=== PATIENT | male | born 1950 | race Caucasian/White ===

== ENCOUNTER 2023-06-13 11:53 | Outpatient (OUT) | payer MEDICARE, OTHER, SELFPAY ==
--- NOTE | 2023-06-13 12:19 | CT_ITS ---
[address] [address] Patient Name: FANTASMA DAWN MRN: [id number] date: 1950 Sex: M Assigned Patient Location: CT Current Patient Location: CT Accession/Order Number: [id number] Exam Date: 06/13/2023 12:35 Report Date: 06/13/2023 16:00 At the request of: SHAIKH DIANE Procedure: CT chest wo con EXAMINATION: CT chest wo con HISTORY: Abnormal chest CT R93.89 COMPARISON: No prior studies or reports for comparison. TECHNIQUE: Multi-planar CT images were obtained without and/or with IV contrast as indicated by examination type. Axial, Coronal, and Sagittal images. Dose reduction techniques were achieved by using automated exposure control and/or adjustment of mA and/or kV according to patient size and/or use of iterative reconstruction technique. FINDINGS: LUNGS: Marked emphysematous changes throughout the lungs. Scattered small areas of stranding favoring scarring or residual parenchyma. Focal 6 cm area within the posterior medial aspect of the right upper lobe basilar segment. PLEURA: No mass, effusion, or pneumothorax. VASCULATURE: No abnormality. JOSE: A few calcified lymph nodes favoring chronic granulomatous disease. MEDIASTINUM: A few calcified lymph nodes. CARDIAC: No enlargement, pericardial thickening, or significant calcification. AORTA: No aneurysm or dissection. CHEST WALL: No mass or axillary adenopathy. BONES: No bone lesion or fracture. LIMITED ABDOMEN: Small round hypodensity medial right hepatic lobe favoring a cyst or hemangioma. Limited images of the upper abdomen. OTHER: Negative. CT/CT chest wo con IMPRESSION: 1. Marked emphysematous changes throughout the lungs. 2. Scattered areas of stranding and greater density suspected to represent scarring and residual parenchyma, most notable within right upper lobe basilar segments. Infectious infiltrates and neoplasm cannot be completely excluded but are felt less likely. Consider follow-up imaging in 2-3 months to document stability. If studies are available at another institution comparison is recommended. Electronically authenticated by: MARSHALL VEGA Date: 06/13/2023 16:00
[2023-06-13 12:20] LABS: Basophils Absolute Auto 0.1 10^3/uL (0.0-0.1); Basophils Percent Auto 0.7 % (0.2-2.0); Eosinophils Absolute Auto 0.1 10^3/uL (0.0-0.7); Eosinophils Percent Auto 1.7 % (0.9-7.0); Hematocrit 52.1 % (42.0-54.0); Hemoglobin 17.7 g/dL (14.0-18.0); Immature Granulocytes Abs Auto 0.04 10^3/uL (0.00-0.03); Immature Granulocytes Pct Auto 0.5 % (0.0-0.5); Lymphocytes Absolute Auto 1.5 10^3/uL (1.2-3.8); Lymphocytes Percent Auto 17.2 % (20.5-60.0); Mean Corpuscular Hemoglobin 32.1 pg (25.9-34.0); Mean Corpuscular Volume 94.6 fL (80.0-94.0); Mean Platelet Volume 8.9 fL (9.5-13.5); Monocytes Absolute Auto 0.7 10^3/uL (0.3-0.8); Monocytes Percent Auto 8.3 % (1.7-12.0); Neutrophils Absolute Auto 6.1 10^3/uL (1.4-6.5); Neutrophils Percent Auto 71.6 % (43.0-75.0); Platelet Count 197 10^3/uL (150-450); Red Blood Count 5.51 10^6/uL (4.70-6.10); Red Cell Distribution Width 13.1 % (11.0-15.0); White Blood Count 8.5 10^3/uL (4.0-11.0)
[2023-06-13 12:45] LABS: Total Protein Urine Random 17.3 mg/dL (<=11.9)
[2023-06-13 13:20] LABS: Alanine Aminotransferase 24 U/L (16-63); Albumin Level 3.6 g/dL (3.4-5.0); Alkaline Phosphatase 93 U/L (46-116); Anion Gap 11.4; Aspartate Amino Transferase 21 U/L (15-37); BUN Creatinine Ratio 15.3; Bilirubin Total 0.9 mg/dL (0.2-1.0); Calcium 9.8 mg/dL (8.5-10.1); Carbon Dioxide 30.5 mmol/L (21.0-32.0); Chloride 105 mmol/L (98-107); Estimated GFR (African America 58 (>=60); Estimated GFR (Non-African Ame 48 (>=60); Globulin 3.5 g/dL; Glucose 90 mg/dL (74-106); Potassium 4.9 mmol/L (3.5-5.1); Sodium 142 mmol/L (136-145); Total Protein 7.1 g/dL (6.4-8.2)
== END 2023-06-13 11:54 | disposition home or self-care (01) ==
PROVIDERS: PCP Internal Medicine; Visit Provider Internal Medicine
DX: R93.89 Abnormal findings on diagnostic imaging of other specified body structures (principal); N18.30 Chronic kidney disease, stage 3 unspecified; J44.9 Chronic obstructive pulmonary disease, unspecified
CPT/HCPCS: 36415; 71250; 80053; 82570; 84156; 85025

== ENCOUNTER 2024-03-19 09:26 | Outpatient (OUT) | payer MEDICARE, OTHER, SELFPAY ==
[2024-03-19 10:01] LABS: Basophils Absolute Auto 0.1 10^3/uL (0.0-0.1); Basophils Percent Auto 0.8 % (0.2-2.0); Eosinophils Absolute Auto 0.2 10^3/uL (0.0-0.7); Eosinophils Percent Auto 3.4 % (0.9-7.0); Hematocrit 48.9 % (42.0-54.0); Hemoglobin 16.2 g/dL (14.0-18.0); Immature Granulocytes Abs Auto 0.02 10^3/uL (0.00-0.03); Immature Granulocytes Pct Auto 0.3 % (0.0-0.5); Lymphocytes Absolute Auto 1.5 10^3/uL (1.2-3.8); Lymphocytes Percent Auto 23.4 % (20.5-60.0); Mean Corpuscular HGB Conc 33.1 g/dL (29.9-35.2); Mean Corpuscular Hemoglobin 31.3 pg (25.9-34.0); Mean Corpuscular Volume 94.6 fL (80.0-94.0); Mean Platelet Volume 9.1 fL (9.5-13.5); Monocytes Absolute Auto 0.5 10^3/uL (0.3-0.8); Monocytes Percent Auto 8.4 % (1.7-12.0); Neutrophils Absolute Auto 4.1 10^3/uL (1.4-6.5); Neutrophils Percent Auto 63.7 % (43.0-75.0); Platelet Count 180 10^3/uL (150-450); Red Blood Count 5.17 10^6/uL (4.70-6.10); Red Cell Distribution Width 12.8 % (11.0-15.0); White Blood Count 6.4 10^3/uL (4.0-11.0)
[2024-03-19 10:13] LABS: Alanine Aminotransferase 21 U/L (16-63); Albumin Globulin Ratio 0.9; Albumin Level 3.3 g/dL (3.4-5.0); Alkaline Phosphatase 96 U/L (46-116); Anion Gap 10.6; Aspartate Amino Transferase 13 U/L (15-37); BUN Creatinine Ratio 20.8; Bilirubin Total 0.7 mg/dL (0.2-1.0); Calcium 10.1 mg/dL (8.5-10.1); Carbon Dioxide 26.8 mmol/L (21.0-32.0); Chloride 106 mmol/L (98-107); Estimated GFR (African America 54 (>=60); Estimated GFR (Non-African Ame 45 (>=60); Globulin 3.5 g/dL; Glucose 99 mg/dL (74-106); Potassium 4.4 mmol/L (3.5-5.1); Sodium 139 mmol/L (136-145); Total Protein 6.8 g/dL (6.4-8.2)
[2024-03-19 11:42] LABS: Protein Creatinine Ratio Urine 0.09; Total Protein Urine Random 11.9 mg/dL (<=11.9)
== END 2024-03-19 09:27 | disposition home or self-care (01) ==
PROVIDERS: PCP Internal Medicine; Visit Provider Internal Medicine
DX: N18.31 Chronic kidney disease, stage 3a (principal)
CPT/HCPCS: 36415; 80053; 82570; 84156; 85025

== ENCOUNTER 2024-06-04 15:59 | Outpatient (OUT) | payer MEDICARE, OTHER, SELFPAY ==
--- OUTSIDE RECORDS SUMMARY | 2024-06-04 16:18 | XMS_ITS | CCD ---
Author Organization [facility] Care Team Providers Care Market Manager Name Role Phone PHYSICIAN, DEFAULT Unavailable Unavailable PHYSICIAN, DEFAULT Unavailable Unavailable Lisa Lester Unavailable YancyRowena Unavailable DIANE, BARKER H Attending Unavailable DR YANDY MALONEY V Consulting Unavailable RICHELLE HUNTLEY Primary Care Unavailable FAWWAD, BARKER H Admitting Unavailable FAWWAD, BARKER H Referring Unavailable DR REINIER DAVISON Consulting Unavailable DIANE, BARKER H Consulting Unavailable YANDY PINEDA Consulting Unavailable RICHELLE HUNTLEY Primary Care Unavailable FAWWAD, BARKER H Attending Unavailable FAWWAD, BARKER H Admitting Unavailable FAWWAD, BARKER H Consulting Unavailable DR REINIER DAVISON Consulting Unavailable FAWWAD, BARKER H Attending Unavailable RICHELLE HUNTLEY Primary Care Unavailable FAWWAD, BARKER H Admitting Unavailable FAWWAD, BARKER H Consulting Unavailable FARosaWAD, BARKER H Attending Unavailable RICHELLE HUNTLEY Primary Care Unavailable FAWWAD, BARKER H Admitting Unavailable RICHELLE HUNTLEY Primary Care Unavailable DR REINIER DAVISON Consulting Unavailable FAWWAD, BARKER H Admitting Unavailable FAWWAD, BARKER H Attending Unavailable FAWWAD, BARKER H Consulting Unavailable CANDACEWWAD, BARKER H Attending Unavailable RICHELLE HUNTLEY Primary Care Unavailable DR YANDY MALONEY V Consulting Unavailable FAWWAD, BARKER H Admitting Unavailable FAWWAD, BARKER H Consulting Unavailable SEBASTIAN KOHLER Attending Unavailable SEBASTIAN KOHLER Attending Unavailable SRUTHI PINEDA Attending Unavailable FAWWAD, BARKER Attending Unavailable FAWWAD, BARKER Attending Unavailable Medications Current Medications Medication Drug Class(es) Dates Sig (Normalized) Sig (Original) [id number] 200 actuat albuterol 0.09 mg/actuat metered dose inhaler (2 sources) beta2-Adrenergic Agonist take 2 puff(s) by inhalation every four hours as needed Ventolin HFA 108 (90 Base) MCG/ACT 2 puff as needed Inhalation every 4 hrs Active cyclobenzaprine hydrochloride 5 mg oral tablet (1 source) Muscle Relaxant Start: 2 take 1 tablet by mouth every eight hours Cyclobenzaprine HCl 5 MG 1 tablet as needed Orally Three times a day May, Active methylPREDNISolone 4 mg oral tablet (1 source) Corticosteroid Start: 2 methylPREDNISolone 4 MG start tomorrow as directed Orally Once a day for 6 days May, Active Trelegy Ellipta (1 source) Trelegy Ellipta Active 7 actuat umeclidinium 0.0625 mg/actuat / vilanterol 0.025 mg/actuat dry powder inhaler (1 source) Anticholinergic, beta2-Adrenergic Agonist take 1 puff(s) by inhalation once daily Anoro Ellipta 62.5-25 MCG/INH 1 puff Inhalation Once a day Active Completed/Discontinued Medications Medication Drug Class(es) Dates Sig (Normalized) Sig (Original) dextromethorphan hydrobromide 15 mg / guaiFENesin 400 mg / pseudoephedrine hydrochloride 60 mg oral tablet (1 source) alpha-Adrenergic Agonist, Uncompetitive W-sqasii-M-aspartate Receptor Antagonist, Sigma-1 Agonist Capmist DM 60-15-400 MG 1 tablet at 4 hour intervals as needed Orally Four times a day Not-Taking Toradol 30 mg/ml (1 source) Start: 06-17-2022 Toradol 30 mg/ml May, 30 mg triamcinolone acetonide 40 mg/ml injectable suspension (1 source) Corticosteroid Start: 06-17-2022 Kenalog-40 May, 40 mg Problems Active Problems Problem Classification Problem Date Documented Date Episodic/Chronic Chronic kidney disease (2 sources) Chronic kidney disease stage 3A ; Translations: [Chronic kidney disease, stage 3a] Chronic Chronic kidney disease (3 sources) Chronic kidney disease; Translations: [Chronic kidney disease, stage III (moderate)] Onset: 03-08-2022 Resolved: 03-08-2022 Chronic obstructive pulmonary disease and bronchiectasis (1 source) Chronic obstructive pulmonary disease, unspecified; Translations: [COPD UNSPECIFIED] Onset: 12-16-2021 Chronic Disorders of lipid metabolism (2 sources) Hyperlipidemia, unspecified; Translations: [Hyperlipidemia, unspecified] Onset: 07-07-2023 Chronic Other lower respiratory disease (4 sources) Other forms of dyspnea; Translations: [OTHER FORMS OF DYSPNEA] Onset: 11-10-2022 Episodic Other screening for suspected conditions (not mental disorders or infectious disease) (4 sources) Abnormal findings on diagnostic imaging of other specified body structures; Translations: [ABNORML FIND DX IMG OTH BODY STRUC] Onset: 02-22-2022 Chronic Spondylosis; intervertebral disc disorders; other back problems (2 sources) Spondylosis without myelopathy or radiculopathy, lumbar region; Translations: [Other intervertebral disc degeneration, lumbar region] Onset: 12-16-2021 Chronic Sprains and strains (1 source) Strain of muscle, fascia and tendon of lower back, initial encounter Episodic Substance-related disorders (1 source) Nicotine dependence, cigarettes, with other nicotine-induced disorders; Translations: [NICOTINE DEPEND CIG W/OTH INDUC D/O] Onset: 12-16-2021 Chronic Unclassified (3 sources) LOW BACK PAIN, UNSPECIFIED; Translations: [LOW BACK PAIN, UNSPECIFIED] Onset: 12-16-2021 Unclassified (2 sources) New Patient; Translations: [New Patient] Onset: 01-25-2023 Past or Other Problems Problem Classification Problem Date Documented Da te Episodic/Chronic Other lower respiratory disease (1 source) Other nonspecific abnormal finding of lung field; Translations: [OTH NONSPECIFIC ABN FIND LNG FIELD] Onset: 12-16-2021 Episodic Other screening for suspected conditions (not mental disorders or infectious disease) (1 source) Encounter for screening for malignant neoplasm of respiratory organs; Translations: [ENC SCREEN MALIG NEOPLASM RESP ORGN] Onset: 12-16-2021 Episodic Spondylosis; intervertebral disc disorders; other back problems (4 sources) Spinal stenosis, lumbar region with neurogenic claudication; Translations: [SPINAL STENOSIS LUMBAR REGION NC] Onset: 06-28-2022 Episodic Unclassified (1 source) LOW BACK PAIN, UNSPECIFIED; Translations: [LOW BACK PAIN, UNSPECIFIED] Onset: 12-10-2021 Results Test Name Value Interpretation Reference Range Facility Office Visiton 07-07-2023 Follow-up visit [id number] Spencer Dawn 1950 M Date Provider Department Center 07/07/2023 SEBASTIAN BOSS [facility] Family History Problem Relation Age of Onset No Known Problems Mother No Known Problems Father Family Status - Relation Status Age at Mother Father Level of Service:30941 [place] OFFICE/OUTPATIENT ESTABLISHED LOW MDM 20-29 MIN Normal [facility] Office Visiton 01-25-2023 Follow-up visit [id number] Spencer Dawn 1950 M Date Provider Department [facility] SADIQ Ro [facility] No family history on file Level of Service:79353 [place] OFFICE/OUTPATIENT NEW MODERATE MDM 45-59 MINUTES Reason for Visit and Comments: New Patient [632] - Est care- Ongoing SOB and results of heart test Normal [facility] CP ECHO W CONTRASTon 023 CP ECHO W CONTRAST Patient: CRISTI DAWN Exam Date: 11/10/2022 : 1950 Gender:M Ordering : SHAIKH Nathanael CONTRERAS . Admission #: [id number] Family : Order #: [id number] CLICK HERE TO VIEW EXAM ECHOCARDIOGRAM REPORT PROCEDURE: CD ECHO W CONTRAST INDICATIONS: GOLDEN COMPARISON: None. DESCRIPTION: CONTRAST ECHOCARDIOGRAM Real-time transthoracic echocardiography with 2D, M-mode, spectral and color flow Doppler when performed. QUALITY: Lumason contrast was administered due to suboptimal imaging for left ventricular opacification to improve delineation of endocardial boarders. LEFT VENTRICLE: Normal chamber size. Moderate concentric left ventricular hypertrophy. LV EF: Global left ventricular systolic function is normal. Calculated left ventricular ejection fraction is 55%. No significant wall motion abnormalities. DIASTOLIC: Normal diastolic function. ATRIAL SEPTUM: Inadequately seen. LEFT ATRIUM: Normal chamber size. RIGHT ATRIUM: Mild dilatation. RIGHT VENTRICLE: Normal chamber size. Normal right ventricular systolic function. TRICUSPID VALVE: Normal mobility and thickness. No stenosis with trivial regurgitation. No evidence of pulmonary hypertension. RVSP 33mmHg MITRAL VALVE: Normal mobility and thickness. No mitral valve prolapse. No evidence of mitral valve stenosis. There is no mitral annular calcification. No mitral regurgitation. AORTIC VALVE: Normal trileaflet appearance. Thickened aortic valve. Normal leaflet mobility. No evidence of aortic valve stenosis. No aortic regurgitation. AORTIC ROOT: Normal diameter and appearance. PULMONIC VALVE: Normal thickness and mobility. No stenosis. No regurgitation. PERICARDIUM: Anterior free space; trivial effusion versus fat pad. IVC: Collapses with inspirations. Normal size. CONCLUSION: Global left ventricular systolic function is normal; visually estimated ejection fraction is 55 to 60%. No wall motion abnormalities. Normal diastolic function. The right atrium is mildly dilated. Right ventricle is normal in size and systolic function. No significant valvular abnormalities. Anterior free space; trivial effusion versus fat pad. Adult Echocardiography Procedure Report Left Ventricle LVEDD (3.7 - 5.6 cm): 4.18 cm LVESD (2.2 - 4.0 cm): 3.13 cm LVIVS thickness (0.6 - 1.2 cm): 1.34 cm LVPW thickness (0.5 - 1.0 cm): 1.30 cm e': 0.10 m/s E - e': 5.56 LVOT Max Gradient: 3.24 mm[Hg] Peak Velocity (LVOT): 0.90 m/s Mean Velocity (LVOT): 0.58 m/s LVOT Diameter 2.33 cm Left Atrium LA Volume Index (2D A2C): 38.89 ml, 38.89 ml Left Atrium Systolic Dimension: 4.40 cm Mitral Valve MV E to A Ratio: 0.65 Mitral Valve A-Wave Peak Velocity: 0.83 m/s Mitral Valve E-Wave Peak Velocity: 0.54 m/s Right Ventricle RV Internal Diastolic Dimension: 3.23 cm Aorta AO Root Diam: 3.36 cm Ascending Ao Diam: 3.03 cm Aortic Valve AoV Area (Peak Vinny): 3.44 cm2, 3.44 cm2 AoV Area (VTI): 3.07 cm2, 3.07 cm2 Peak Velocity(Antegrade Flow): 1.12 m/s Peak Gradient(Antegrade Flow): 4.98 mm[Hg] Mean Velocity(Antegrade Flow): 0.77 m/s Mean Gradient(Antegrade Flow): 2.78 mm[Hg] Velocity Time Integral: 27.23 cm Tricuspid Valve Peak Velocity (Regurgitant Flow): 2.73 m/s, 2.63 m/s Peak Velocity: 0.48 m/s Pulmonic Valve Mean Gradient: 0.85 mm[Hg] Mean Velocity: 0.43 m/s Peak Velocity: 0.66 m/s, 0.85 m/s Peak Gradient: 2.92 mm[Hg], 1.72 mm[Hg] Right Atrium Right Atrium Systolic Pressure: 40.59 ml, 40.59 ml Dictated by: Ale Paz M.D. on 11/11/2022 at 13:37 Approved by: Ale Paz M.D. on 11/11/2022 at 13:41 Normal [facility] STRESS/REST MULTIon 11-10 MN STRESS/REST MULTI Patient: SPENCER DAWN Exam Date: 11/10/2022 : 1950 Gender:M Ordering : SHAIKH Nathanael CONTRERAS . Admission #: [id number] Family : Order #: [id number] CLICK HERE TO VIEW EXAM RADIOLOGY REPORT PROCEDURE: RADIONUCLIDE IMAGING STRESS/REST MULTI COMPARISON: MN STRESS/REST MULTI, 12/07/2017. INDICATIONS: Dyspnea on exertion TECHNIQUE: Exam Description: Stress/Rest one day protocol gated SPECT Rest Imagin.1 mCi Tc-99m Cardiolite IV on 11/10/2022 Stress Imaging 30.2 mCi Tc-99m Cardiolite IV on 11/10/2022 Exercise Protocol: 0.4 mg Lexiscan given IV Heart Rate (bpm): Rest: 75 Max: 104 PMHR: 69 Blood Pressure: Rest: 158/90 Max: 170/102 Symptoms: shortness of breath Rest and peak stress ECG findings were normal and the exercise portion of the study was normal per attending physician Dr. Mckee . For more details please see separate cardiac stress test report. FINDINGS: QUALITY OF STUDY: PERFUSION DEFECT: LOCATION: Basal inferior. Mid-inferior. SIZE: Small (1-2 segments). SEVERITY: Mild. TYPE: Persistent. WALL MOTION: Normal. LV SIZE: Normal. 67 mL. TID / TCD: None; 0.8 LVEF: Normal. Calculated EF 76%. SUMMARY: Myocardial perfusion imaging study has ABNORMAL findings. CONCLUSION: 1. No acute or reversible ischemia. 2. Small fixed perfusion defect involving the proximal and mid inferior wall versus attenuation artifact. 3. Normal wall motion and ejection fraction. Dictated by: Reinier Davison M.D. on 11/10/2022 at 15:16 Approved by: Reinier Davison M.D. on 11/10/2022 at 15:21 Normal [facility] BNPon 11-02-2022 Natriuretic peptide B (Bld) [Mass/Vol] 122.0 pg/mL Normal <=900.0 [facility] Comment on above: Performed By: #### C MP #### [facility] [address] [place] [address] Dr. Radha Gomez CBC AUTO DIFFon 11-02-2022 BASO # 0.1 103/ul Normal 0.0-0.1 [facility] Comment on above: Performed By: #### C MP #### [facility] [address] [place] [address] Dr. Radha Gomez Basophils/100 WBC (Bld) 0.8 % Normal 0.2-2.0 [facility] Comment on above: Performed By: #### C MP #### [facility] [address] [place] [address] Dr. Radha Gomez EO # 0.1 103/ul Normal 0.0-0.7 [facility] Comment on above: Performed By: #### C MP #### [facility] [address] [place] [address] Dr. Rdaha Gomez Eosinophils/100 WBC (Bld) 1.9 % Normal 0.9-7.0 [facility] Comment on above: Performed By: #### C MP #### [facility] [address] [place] [address] Dr. Radha Gomez Erythrocyte distribution width (RBC) [Ratio] 12.7 % Normal 11.0-15.0 [facility] Comment on above: Performed By: #### C MP #### [facility] [address] [place] [address] Dr. Radha Gomez Hematocrit (Bld) [Volume fraction] 49.8 % Normal 42.0-54.0 [facility] Comment on above: Performed By: #### C MP #### [facility] [address] [place] [address] Dr. Radha Gomez Hemoglobin (Bld) [Mass/Vol] 16.9 g/dL Normal 14.0-18.0 [facility] Comment on above: Performed By: #### C MP #### [facility] [address] [place] [address] Dr. Radha Gomez IG # 0.02 10e3/ul Normal 0.00-0.03 [facility] Comment on above: Performed By: #### C MP #### [facility] [address] [place] [address] Dr. Radha Gomez IG % 0.3 % Normal 0.0-0.5 [facility] Comment on above: Performed By: #### C MP #### [facility] [address] [place] [address] Dr. Radha Gomez LYMPH # 1.4 103/ul Normal 1.2-3.8 [facility] Comment on above: Performed By: #### C MP #### [facility] [address] [place] [address] Dr. Radha Gomez Lymphocytes/100 WBC (Bld) 19.3 % Critically low 20.5-60.0 [facility] Comment on above: Performed By: #### C MP #### [facility] [address] [place] [address] Dr. Radha Gomez MANUAL DIFF REQ NO Normal [facility] Comment on above: Performed By: #### C MP #### [facility] [address] [place] [address] Dr. Radha Gomez MCH (RBC) [Entitic mass] 31.9 pg Normal 25.9-34.0 [facility] Comment on above: Performed By: #### C MP #### [facility] [address] [place] [address] Dr. Radha Gomez MCHC (RBC) [Mass/Vol] 33.9 g/dL Normal 29.9-35.2 [facility] Comment on above: Performed By: #### C MP #### [facility] [address] [address] [address] Radha Gomez MCV (RBC) [Entitic vol] 94.0 fL Normal 80.0-94.0 [facility] Comment on above: Performed By: #### C MP #### [facility] [address] [address] [address] Radha Gomez MONO # 0.7 103/ul Normal 0.3-0.8 [facility] Comment on above: Performed By: #### C MP #### [facility] [address] [address] [address] Radha Gomez Monocytes/100 WBC (Bld) 9.5 % Normal 1.7-12.0 [facility] Comment on above: Performed By: #### C MP #### [facility] [address] [address] [address] Radha Gomez NEUT # 5.0 103/ul Normal 1.4-6.5 [facility] Comment on above: Performed By: #### C MP #### [facility] [address] [place] [address] Dr. Radha Gomez Neutrophils/100 WBC (Bld) 68.2 % Normal 43.0-75.0 [facility] Comment on above: Performed By: #### C MP #### [facility] [address] [address] [address] Radha Gomez Platelet mean volume (Bld) [Entitic vol] 9.0 fL Critically low 9.5-13.5 [facility] Comment on above: Performed By: #### C MP #### [facility] [address] [place] [address] Dr. Radha Gomez PLT 183 103/ul Normal 150-450 [facility] Comment on above: Performed By: #### C MP #### [facility] [address] [address] [address] Radha Gomez RBC 5.30 106/ul Normal 4.70-6.10 [facility] Comment on above: Performed By: #### C MP #### [facility] [address] [address] [address] Radha Gomez WBC 7.3 103/ul Normal 4.0-11.0 [facility] Comment on above: Performed By: #### C MP #### [facility] [address] [address] [address] Radha Gomez PROF CHEM 8 (BAS METB)on Anion gap [Moles/Vol] 11.7 mmol/L Normal [facility] Comment on above: Performed By: #### C MP #### [facility] [address] [address] [address] Radha Gomez Calcium [Mass/Vol] 9.5 mg/dL Normal 8.5-10.1 [facility] Comment on above: Performed By: #### C MP #### [facility] [address] [place] [address] Dr. Radha Gomez Chloride [Moles/Vol] 105 mmol/L Normal 98-107 [facility] Comment on above: Performed By: #### C MP #### [facility] [address] [address] [address] Radha Gomez CO2 [Moles/Vol] 27.5 mmol/L Normal 21.0-32.0 [facility] Comment on above: Performed By: #### C MP #### [facility] [address] [address] [address] Radha Gomez Creatinine [Mass/Vol] 1.35 mg/dL Critically high 0.70-1.30 [facility] Comment on above: Performed By: #### C MP #### [facility] [address] [address] [address] Radha Gomez EGFR-AF WALLISIAN >60 Normal >=60 [facility] Comment on above: Performed By: #### C MP #### [facility] [address] [place] [address] Dr. Radha Gomez EGFR-NON AF WALLISIAN 52 mL/min/1.73m2 Critically low >=60 [facility] Comment on above: Performed By: #### C MP #### [facility] [address] [address] [address] Radha Gomez Glucose [Mass/Vol] 88 mg/dL Normal 74-106 [facility] Comment on above: Performed By: #### C MP #### [facility] [address] [address] [address] Radha Gomez Potassium [Moles/Vol] 4.2 mmol/L Normal 3.5-5.1 [facility] Comment on above: Performed By: #### C MP #### [facility] [address] [address] [address] Radha Gomez Sodium [Moles/Vol] 140 mmol/L Normal 136-145 [facility] Comment on above: Performed By: #### C MP #### [facility] [address] [address] [address] Radha Gomez Urea nitrogen [Mass/Vol] 19.0 mg/dL Critically high 7.0-18.0 [facility] Comment on above: Performed By: #### C MP #### [facility] [address] [address] [address] Radha Gomez Urea nitrogen/Creatinin e [Mass ratio] 14.1 mg/mg Normal [facility] Comment on above: Performed By: #### C MP #### [facility] [address] [address] [address] Radha Gomez XR CHEST 2 Von 11-02-2022 XR CHEST 2 V EXAM: XR CHEST 2 V HISTORY: . Dyspnea . COMPARISON: 05/24/2019 TECHNIQUE: Frontal and lateral chest FINDINGS: Heart and vascularity are unremarkable. There is hyperexpansion of the lungs and flattening of the hemidiaphragms indicating COPD. There is slight prominence of the bronchovascular markings. Lungs are free of focal infiltrates. No effusions are noted. Spondylosis of the spine is noted. IMPRESSION: 1. Changes consistent with COPD. 2. Prominence of the bronchovascular markings. Findings could be chronic. Bronchitis however must also be considered. 3. No areas of consolidation noted. Clinical correlation is suggested. Electronically authenticated by: YANDY PINEDA Date: 2022-11-02 08:42 Normal [facility] XR LSPINE 2_3 VIEWSon 2021 XR LSPINE 2_3 VIEWS EXAMINATION: XR LSPINE 2_3 VIEWS HISTORY: Spinal stenosis of lumbar region COMPARISON: 06/09/2022 FINDINGS: BONES: Normal alignment with no acute fracture or spondylolisthesis. Moderate degenerative spondylosis and facet osteoarthropathy DISC SPACES: Mild to moderate disc space narrowing most significant at T12-L2 PARASPINOUS: Negative. No paraspinous abnormality is seen. OTHER: Vascular calcifications IMPRESSION: Mild to moderate degenerative changes, stable Electronically authenticated by: YANDY MALONEY Date: 2022-06-21 15:47 Normal [facility] CT CHEST WO CONon 02-22-2022 CT CHEST WO CON EXAMINATION: CT CHES T WO CON HISTORY: Imaging result abnormal COMPARISON: No relevant comparison available. TECHNIQUE: Multi-planar CT images were created with IV contrast. Axial, Coronal, and Sagittal images. Dose reduction techniques were achieved by using automated exposure control and/or adjustment of mA and/or kV according to patient size and/or use of iterative reconstruction technique. FINDINGS: LUNGS: Mild peribronchial thickening. Moderate to severe diffuse bilateral centrilobular emphysema. Area of bronchiectasis and patchy parenchymal opacities noted in the right lower lobe ill-defined measuring up to 4.2 x 3.3 cm on axial image 68 this appears stable from the exam 2 months ago additional scattered subcentimeter calcified and noncalcified pulmonary nodules are noted throughout both lungs, grossly unchanged. PLEURA: No mass, effusion, or pneumothorax. VASCULATURE: No abnormality. JOSE: No mass or adenopathy. MEDIASTINUM: Increased number of normal-sized lymph nodes. No pathologic lymphadenopathy CARDIAC: No enlargement, pericardial thickening, or significant calcification. AORTA: No aortic aneurysm. Mild atherosclerosis CHEST WALL: No mass or axillary adenopathy. BONES: No bone lesion or fracture. LIMITED ABDOMEN: Scattered hypodensities in the liver, the larger lesions are likely cysts. The smaller lesions are too small to characterize OTHER: Negative. IMPRESSION: Area of ill-defined infiltrate with associated bronchiectasis in the right lower lobe. While this is unchanged from the exam 2 months ago etiology remains unknown. Additional stable subcentimeter pulmonary nodules and moderate to severe centrilobular emphysema Six-month follow-up recommended to document stability Electronically authenticated by: YANDY MALONEY Date: 2022-02-22 13:27 Normal [facility] CBC AUTO DIFFon 12-10-2021 BASO # 0.1 103/ul Normal 0.0-0.1 [facility] Comment on above: Performed By: #### C BC #### [facility] [address] [place] [address] Dr. Radha Gomez Basophils/100 WBC (Bld) 0.6 % Normal 0.2-2.0 [facility] Comment on above: Performed By: #### C BC #### [facility] [address] [place] [address] Dr. Radha Gomez EO # 0.3 103/ul Normal 0.0-0.7 [facility] Comment on above: Performed By: #### C BC #### [facility] [address] [place] [address] Dr. Radha Gomez Eosinophils/100 WBC (Bld) 3.1 % Normal 0.9-7.0 [facility] Comment on above: Performed By: #### C BC #### [facility] [address] [place] [address] Dr. Radha Gomez Erythrocyte distribution width (RBC) [Ratio] 12.8 % Normal 11.0-15.0 [facility] Comment on above: Performed By: #### C BC #### [facility] Laboratory [address] [place] [address] Dr. Radha Gomez Hematocrit (Bld) [Volume fraction] 50.9 % Normal 42.0-54.0 [facility] Comment on above: Performed By: #### C BC #### [facility] [address] [place] [address] Dr. Radha Gomez Hemoglobin (Bld) [Mass/Vol] 17.3 g/dL Normal 14.0-18.0 [facility] Comment on above: Performed By: #### C BC #### [facility] [address] [place] [address] Dr. Radha Gomez IG # 0.02 10e3/ul Normal 0.00-0.03 [facility] Comment on above: Performed By: #### C BC #### [facility] [address] [place] [address] Dr. Radha Gomez IG % 0.3 % Normal 0.0-0.5 [facility] Comment on above: Performed By: #### C BC #### [facility] [address] [place] [address] Dr. Radha Gomez LYMPH # 1.4 103/ul Normal 1.2-3.8 [facility] Comment on above: Performed By: #### C BC #### [facility] [address] [place] [address] Dr. Radha Gomez Lymphocytes/100 WBC (Bld) 18.0 % Critically low 20.5-60.0 [facility] Comment on above: Performed By: #### C BC #### [facility] [address] [place] [address] Dr. Radha Gomez MANUAL DIFF REQ NO Normal [facility] Comment on above: Performed By: #### C BC #### [facility] [address] [place] [address] Dr. Radha Gomez MCH (RBC) [Entitic mass] 31.3 pg Normal 25.9-34.0 [facility] Comment on above: Performed By: #### C BC #### [facility] [address] [place] [address] Dr. Radha Gomez MCHC (RBC) [Mass/Vol] 34.0 g/dL Normal 29.9-35.2 [facility] Comment on above: Performed By: #### C BC #### [facility] [address] [place] [address] Dr. Radha Gomez MCV (RBC) [Entitic vol] 92.0 fL Normal 80.0-94.0 [facility] Comment on above: Performed By: #### C BC #### [facility] [address] [place] [address] Dr. Radha Gomez MONO # 0.7 103/ul Normal 0.3-0.8 [facility] Comment on above: Performed By: #### C BC #### [facility] [address] [place] [address] Dr. Radha Gomez Monocytes/100 WBC (Bld) 8.3 % Normal 1.7-12.0 [facility] Comment on above: Performed By: #### C BC #### [facility] [address] [place] [address] Dr. Radha Gomez NEUT # 5.5 103/ul Normal 1.4-6.5 [facility] Comment on above: Performed By: #### C BC #### [facility] [address] [place] [address] Dr. Radha Gomez Neutrophils/100 WBC (Bld) 69.7 % Normal 43.0-75.0 [facility] Comment on above: Performed By: #### C BC #### [facility] [address] [place] [address] Dr. Radha Gomez Platelet mean volume (Bld) [Entitic vol] 9.3 fL Critically low 9.5-13.5 [facility] Comment on above: Performed By: #### C BC #### [facility] [address] [place] [address] Dr. Radha Gomez PLT 168 103/ul Normal 150-450 [facility] Comment on above: Performed By: #### C BC #### [facility] [address] [place] [address] Dr. Radha Gomez RBC 5.53 106/ul Normal 4.70-6.10 [facility] Comment on above: Performed By: #### C BC #### [facility] [address] [place] [address] Dr. Radha Gomez WBC 7.9 103/ul Normal 4.0-11.0 [facility] Comment on above: Performed By: #### C BC #### [facility] [address] [place] [address] LUNG CANCER SCREENINGon 0 12-10-2021 CT LUNG CANCER SCREENING EXAMINATION: CT LUNG CANCER SCREENING HISTORY: Screening for malignant neoplasm of respiratory tract COMPARISON: No relevant comparison available. TECHNIQUE: Axial, Coronal, and Sagittal images were created without the administration of IV contrast material. Dose reduction techniques were achieved by using automated exposure control and/or adjustment of mA and/or kV according to patient size and/or use of iterative reconstruction technique. FINDINGS: LUNGS: 4 cm patchy/strandy opacity within the posterior medial right lung adjacent the spine at the level of the hilum; atelectasis versus infiltrates. Moderate emphysematous changes throughout the lungs. A few tiny scattered calcified granulomas. PLEURA: No mass, effusion, or pneumothorax. VASCULATURE: No abnormality. JOSE: No mass or pathologic adenopathy. MEDIASTINUM: A few calcified granulomas. CARDIAC: No enlargement, pericardial thickening, or significant calcification. AORTA: No aneurysm or dissection. CHEST WALL: No mass or axillary adenopathy BONES: No bone lesion or fracture. LIMITED ABDOMEN: No suspicious findings. Limited images of the upper abdomen. OTHER: Negative. IMPRESSION: 1. LUNG SCREENING: Lung-RADS Category 4A- Suspicious. Findings for which additional diagnostic testing and/ or tissue sampling is recommended. 3 month LDCT; PET/CT may be used when there is a >= 8 mm solid component. 2. Patchy/strandy 4 cm opacity within the posterior medial right lung adjacent the spine most suggestive of infectious infiltrate, but neoplasm cannot be excluded. Correlate with clinical symptoms. Consider follow-up CT imaging in 3 months to document resolution versus stability. Electronically authenticated by: REINIER DAVISON Date: 2021-12-10 11:08 Normal [facility] PROF 14(COMP METB)on 022 Albumin [Mass/Vol] 3.7 g/dL Normal 3.5-5.0 [facility] Comment on above: Performed By: #### C MP #### [facility] [address] [place] [address] Dr. Radha Gomez Albumin/Globulin [Mass ratio] 1.1 {ratio} Normal [facility] Comment on above: Performed By: #### C MP #### [facility] [address] [address] [address] Radha Gomez ALP [Catalytic activity/Vol] 92 U/L Normal 38-126 [facility] Comment on above: Performed By: #### C MP #### [facility] [address] [address] [address] Radha Gomez ALT [Catalytic activity/Vol] 26 U/L Normal 21-72 [facility] Comment on above: Performed By: #### C MP #### [facility] [address] [address] [address] Radha Gomez Anion gap [Moles/Vol] 13.0 mmol/L Normal [facility] Comment on above: Performed By: #### C MP #### [facility] [address] [address] [address] Radha Gomez AST [Catalytic activity/Vol] 20 U/L Normal 17-59 [facility] Comment on above: Performed By: #### C MP #### [facility] [address] [address] [address] Radha Gomez Bilirubin [Mass/Vol] 1.1 mg/dL Normal 0.2-1.3 [facility] Comment on above: Performed By: #### C MP #### [facility] [address] [address] [address] Radha Gomez Calcium [Mass/Vol] 9.3 mg/dL Normal 8.4-10.2 [facility] Comment on above: Performed By: #### C MP #### [facility] [address] [address] [address] Radha Gomez Chloride [Moles/Vol] 106 mmol/L Normal 98-107 [facility] Comment on above: Performed By: #### C MP #### [facility] [address] [address] [address] Radha Gomez CO2 [Moles/Vol] 23.4 mmol/L Normal 22.0-30.0 [facility] Comment on above: Performed By: #### C MP #### [facility] [address] [address] [address] Radha Gomez Creatinine [Mass/Vol] 1.39 mg/dL Critically high 0.66-1.25 [facility] Comment on above: Performed By: #### C MP #### [facility] [address] [address] [address] Radha Gomez EGFR-AF WALLISIAN >60 Normal >=60 [facility] Comment on above: Performed By: #### C MP #### [facility] [address] [address] [address] Radha Gomez EGFR-NON AF WALLISIAN 51 mL/min/1.73m2 Critically low >=60 [facility] Comment on above: Performed By: #### C MP #### [facility] [address] [address] [address] Radha Gomez Globulin (S) [Mass/Vol] 3.4 g/dL Normal [facility] Comment on above: Performed By: #### C MP #### [facility] [address] [address] [address] Radha Gomez Glucose [Mass/Vol] 94 mg/dL Normal 74-106 [facility] Comment on above: Performed By: #### C MP #### [facility] [address] [address] [address] Radha Gomez Potassium [Moles/Vol] 4.4 mmol/L Normal 3.4-5.0 [facility] Comment on above: Performed By: #### C MP #### [facility] [address] [address] [address] Radha Gomez Protein [Mass/Vol] 7.1 g/dL Normal 6.1-8.2 [facility] Comment on above: Performed By: #### C MP #### [facility] [address] [address] [address] Radha Gomez Sodium [Moles/Vol] 138 mmol/L Normal 137-145 [facility] Comment on above: Performed By: #### C MP #### [facility] [address] [address] [address] Radha Gomez Urea nitrogen [Mass/Vol] 23.0 mg/dL Critically high 9.0-20.0 [facility] Comment on above: Performed By: #### C MP #### [facility] [address] [address] [address] Radha Gomez Urea nitrogen/Creatinin e [Mass ratio] 16.5 mg/mg Normal [facility] Comment on above: Performed By: #### C MP #### [facility] [address] [address] [address] Radha Gomez XR LSPINE 2_3 VIEWSon 2021 XR LSPINE 2_3 VIEWS EXAMINATION: XR LSPINE 2_3 VIEWS HISTORY: Low back pain ; acute left lumbar pain without injury COMPARISON: No relevant comparison available. FINDINGS: BONES: Minimal grade 1 retrolisthesis of L2 on 3 and L3 on 4. No fracture. Mild degenerative facet arthropathy at multiple levels. DISC SPACES: Moderate narrowing L1-2, L5-S1. Mild narrowing L2-L3, L3-4. PARASPINOUS: Negative. No paraspinous abnormality is seen. OTHER: Negative. IMPRESSION: 1. Multilevel mild-moderate degenerative disc disease and mild degenerative facet arthropathy. 2. No appreciable acute abnormality. No comparison studies. Electronically authenticated by: REINIER DAVISON Date: 2021-12-10 11:13 Normal [facility] Vital Signs Date Time Vital Sign Value Performing Clinician Facility 06-17-2022 10:30-0400 Body height 185.42 cm Rowena Yancy Other [facility] 06-17-2022 10:30-0400 Body mass index (BMI) [Ratio] 28.36 kg/m2 Rowena Yancy Other [facility] 06-17-2022 10:30-0400 Body temperature 97.7 [degF] Rowena Haines Other [facility] Other 06-17-2022 10:30-0400 Body weight 97.52 kg Rowena Haines Other [facility] Other 06-17-2022 10:30-0400 Diastolic blood pressure 93 mm[Hg] Rowena Haines Other [facility] Other 06-17-2022 10:30-0400 Respiratory rate 18 /min Rowena Haines Other [facility] Other 06-17-2022 10:30-0400 SaO2% (BldA) [Mass fraction] 95 % Rowena Haines Other [facility] Other 06-17-2022 10:30-0400 Systolic blood pressure 135 mm[Hg] Rowena Haines Other [facility] Other 03-08-2022 11:20-0400 Body height 185.42 cm Azrafi Carrillos Other [facility] Other 03-08-2022 11:20-0400 Body mass index (BMI) [Ratio] 28.6 kg/m2 Azrafi Carrillos Other [facility] Other 03-08-2022 11:20-0400 Body temperature 97.9 [degF] Azrafi Carrillos Other [facility] Other 03-08-2022 11:20-0400 Body weight 98.34 kg Aziz Bakhous Other [facility] Other 03-08-2022 11:20-0400 Diastolic blood pressure 90 mm[Hg] Aziz Bakhous Other [facility] Other 03-08-2022 11:20-0400 Respiratory rate 20 /min Azrafi Bakhous Other [facility] Other 03-08-2022 11:20-0400 SaO2% (BldA) [Mass fraction] 90 % Aziz Bakhous Other [facility] Other 03-08-2022 11:20-0400 Systolic blood pressure 130 mm[Hg] Aziz Bakhous Other [facility] Other Encounters Encounter Date Encounter Type Care Provider Facility Start: 04-01-2024 End: 04-01-2024 ambulatory SHAIKH DIANE Not Available Start: 03-28-2024 End: 03-28-2024 ambulatory SRUTHI PINEDA Not Available Start: 10-10-2023 End: 10-10-2023 ambulatory BARKER FAYISSELD Not Available Start: 07-07-2023 End: 07-07-2023 ambulatory SEBASTIAN [facility] Start: 01-25-2023 End: 01-25-2023 [facility] Start: 11-10-2022 End: 11-11-[address] REINIER DAVISON Facility:[facility] Start: 11-02-2022 End: 11-03-2022 ambulatory YANDY PINEDA Facility:[facility] Start: 06-28-2022 End: 07-22-2022 ambulatory BARKER H FAYISSELD Facility:[facility] Start: 06-21-2022 End: 06-22-2022 ambulatory BARKER H FAWWAD Facility:[facility] Start: 06-17-2022 End: 06-17-2022 ambulatory Rowena Haines Other [facility] Start: 06-17-2022 Office outpatient visit 15 minutes Rowena Haines [facility] Start: 03-08-2022 End: 03-08-2022 ambulatory Lisa Lester Other [facility] Start: 03-08-2022 Office outpatient ne w 30 minutes Lisa Lester [facility] Start: 02-22-2022 End: 02-23-2022 ambulatory BARKER H FAWWAD Facility:[facility] Start: 12-10-2021 End: 12-11-2021 ambulatory RICHELLE HUNTLEY Facility:[facility] Start: 02-27-2018 End: 02-28-2018 Ambulatory DEFAULT PHYSICIAN Facility:[facility] Payers Date Payer Category Payer Medicare [id number] 2. [id number] 1958 Medicare [id number] 2.1 [id number] 1950 Unknown [id number] 2.16.84 [id number] 1950 Unknown [id number] 2.16.84 [id number] 1950 Unknown [id number] 2.16.84 [id number] 1950 Unknown [id number] 2.16.84 [id number] 1950 Unknown [id number] 2.16.84 [id number] 1950 Unknown [id number] 2.16.84 [id number] 1950 Unknown [id number] 2.16.84 [id number] 1950 Unknown [id number] 2.16.84 [id number] 1950 Unknown [id number] Unknown Social History Date Type Detail Facility Unknown if ever smoked [facility] Other Sex Assigned At Sex Assigned At Bir th [facility] Other Progress note 07-07-2023 Note Date & Type Note Facility 07-07-2023 Note Cardiology Clinic No te Chief Complaint: follow up HPI: Spencer Dawn is a 73 y.o. male with a past medical history including HTN, HLD, tobacco abuse, and COPD. Patient was referred to Cardiology clinic for abnormal stress test. Stress test was performed due to dyspnea on exertion, and a fixed inferior defect concerning for possible scar vs artifact was noted. No reversible ischemia was seen. Of note: patient had similar finding on stress in 2018. Patient presents today for follow up. Patient adamantly denies any cardiac complaints or concerns. Patient denies any chest pain or shortness of breath. Patient denies any lower extremity edema, orthopnea, or proximal nocturnal dyspnea. No near-syncope or syncope. No dizziness or lightheadedness. Cardiology ROS: GENERAL: Denies fever, chills, night sweats, weight loss. HEENT: Denies changes in vision, photophobia, changes in hearing, epistaxis, oral bleeding. CARDIOVASCULAR: Endorses chronic GOLDEN. Denies chest pain, orthopnea/PND, lower extremity edema, palpitations, lightheadedness/dizziness. RESPIRATORY: Denies SOB, coughing, wheezing GI: Denies abdominal pain, nausea/vomiting, heartburn, melena/hematochezia. RENAL: Denies dysuria, hematuria, flank pain. MSK: Denies muscle weakness/pain, arthralgias/joint pain. NEUROLOGIC: Denies LOC, weakness, numbness, headaches. SKIN: Denies abnormal rashes or bleeding. PSYCH: Denies significant anxiety, depression, sleep disturbances. Past Medical History He has a past medical history of COPD (chronic obstructive pulmonary disease) ([facility]), Emphysema of lung ([facility]), and Hypertension. Surgical History He has a past surgical history that includes Tonsillectomy. Social History He reports that he quit smoking about 9 years ago. His smoking use included cigarettes. He has a 50.00 pack-year smoking history. He has never used smokeless tobacco. He reports that he does not currently use alcohol. He reports that he does not use drugs. Family History Family History Problem Relation Name Age of Onset No Known Problems Mother No Known Problems Father Medications Current Outpatient Medications on File Prior to Visit Medication Sig Dispense Refill albuterol 90 mcg/actuation inhaler INHALE 2 TABLETS BY MOUTH EVERY 4 HOURS NEEDED FOR SHORTNESS OF BREATH Trelegy Ellipta 200-62.5-25 mcg blister with device INHALE 1 PUFF BY MOUTH EVERYDAY [DISCONTINUED] Anoro Ellipta 62.5-25 mcg/actuation blister with device INHALE 1 PUFF BY MOUTH ONCE A DAY [DISCONTINUED] cyclobenzaprine (Flexeril) 5 mg tablet Take 5 mg by mouth if needed in the morning, at noon, and at bedtime. [DISCONTINUED] oxyCODONE (Roxicodone) 5 mg immediate release tablet TAKE 1 TABLET BY MOUTH 3 TIMES A DAY NEEDED FOR PAIN No current facility-administered medications on file prior to visit. Allergies Patient has no known allergies. Physical Exam VITAL SIGNS: BP 134/88 (BP Location: Left arm, Patient Position: Sitting) Pulse 90 Ht 1.829 m (6') Wt 94.3 kg (208 lb) SpO2 92% BMI 28.21 kg/m??? Constitutional: Well developed, Well nourished, No acute distress, Non-toxic appearance. HENT: Normocephalic, Atraumatic, Bilateral external ears have normal appearance, Bilateral TMs clear, Oropharynx moist, No oral or pharyngeal exudates, Nose appears normal, nares are patent. Eyes: PERRLA, EOMI, Conjunctiva normal, No discharge. Neck: Normal range of motion, No tenderness, Supple, No stridor. No cervical lymphadenopathy noted. Cardiovascular: Normal heart rate, Normal rhythm, No murmurs, No rubs, No gallops. Thorax & Lungs: Normal breath sounds, No respiratory distress, No wheezing, No chest tenderness to palpation. Abdomen: Bowel sounds normal, Soft, Nontender, No masses, No pulsatile masses. Skin: Warm, Dry, No erythema, No rash. Back: No tenderness, No CVA tenderness. Extremities: Intact distal pulses, No edema, No tenderness, No cyanosis, No clubbing. Musculoskeletal: Good range of motion in all major joints with 5/5 muscle strength in all muscle groups, No tenderness to palpation or major deformities noted. Neurologic: Alert & oriented x 3, Normal motor function in all major muscle groups, Normal sensory function to all major dermatomes, No focal deficits noted. Psychiatric: Affect normal, Judgment normal, Mood normal. Impression: -Abnormal stress test: fixed inferior defect, scar vs artifact. Present on previous stress. No angina. -Dyspnea on exertion, likely in large due to severe COPD -Severe COPD -HTN Plan: -Patient wishes to proceed with observation at this time. -He declines any medications at this time. I recommend initiating amlodipine for hypertension, however patient declines at this time. He will maintain daily blood pressure log and will contact cardiology if blood pressures above discuss target -He declines statin therapy at this time as well. We will check lipid panel (more content not included)... [facility] Progress note 07-07-2023 Note Date & Type Note Facility 07-07-2023 Note Patient here for 6 m o follow up abnormal stress test, dyspnea, and hypertension. Still denies chest pain. PCP manages his COPD/emphysema. He had CT chest and lab work a few weeks ago. [facility] Progress note 01-25-2023 Note Date & Type Note Facility 01-25-2023 Note Cardiology Clinic No te Chief Complaint: new patient regarding abnormal stress test HPI: Spencer Dawn is a 73 y.o. male with a past medical history including HTN, HLD, tobacco abuse, and COPD. Patient was referred to Cardiology clinic for abnormal stress test. Stress test was performed due to dyspnea on exertion, and a fixed inferior defect concerning for possible scar vs artifact was noted. No reversible ischemia was seen. Patient adamantly denies any chest pain. He states that he is fairly active and he adamantly denies any chest pain/tightness/pressure. He states that his dyspnea on exertion has been an ongoing thing for many years, and states that it has improved with inhalers. No worsening in symptoms. Patient adamantly denies any syncope, LE edema, orthopnea, PND, palps, or bleeding. Patient denies any previous history of CVA, PVD, DM, Depressed LVEF, and CAD. Echo was performed and was unremarkable. Normal EF. No regional wall motion abnormality. Cardiology ROS: GENERAL: Denies fever, chills, night sweats, weight loss. HEENT: Denies changes in vision, photophobia, changes in hearing, epistaxis, oral bleeding. CARDIOVASCULAR: Endorses chronic GOLDEN. Denies chest pain, orthopnea/PND, lower extremity edema, palpitations, lightheadedness/dizziness. RESPIRATORY: Denies SOB, coughing, wheezing GI: Denies abdominal pain, nausea/vomiting, heartburn, melena/hematochezia. RENAL: Denies dysuria, hematuria, flank pain. MSK: Denies muscle weakness/pain, arthralgias/joint pain. NEUROLOGIC: Denies LOC, weakness, numbness, headaches. SKIN: Denies abnormal rashes or bleeding. PSYCH: Denies significant anxiety, depression, sleep disturbances. Past Medical History He has no past medical history on file. Surgical History He has no past surgical history on file. Social History He reports that he quit smoking about 9 years ago. His smoking use included cigarettes. He has a 50.00 pack-year smoking history. He has never used smokeless tobacco. He reports that he does not currently use alcohol. He reports that he does not use drugs. Family History No family history on file. Medications Current Outpatient Medications on File Prior to Visit Medication Sig Dispense Refill albuterol 90 mcg/actuation inhaler INHALE 2 TABLETS BY MOUTH EVERY 4 HOURS NEEDED FOR SHORTNESS OF BREATH Anoro Ellipta 62.5-25 mcg/actuation blister with device INHALE 1 PUFF BY MOUTH ONCE A DAY cyclobenzaprine (Flexeril) 5 mg tablet Take 5 mg by mouth if needed in the morning, at noon, and at bedtime. oxyCODONE (Roxicodone) 5 mg immediate release tablet TAKE 1 TABLET BY MOUTH 3 TIMES A DAY NEEDED FOR PAIN Trelegy Ellipta 200-62.5-25 mcg blister with device INHALE 1 PUFF BY MOUTH EVERYDAY No current facility-administered medications on file prior to visit. Allergies Patient has no known allergies. Physical Exam VITAL SIGNS: BP (!) 149/96 (BP Location: Left arm, Patient Position: Sitting, BP Cuff Size: Adult) Pulse 66 Ht 1.829 m (6') Wt 95.7 kg (211 lb) SpO2 95% BMI 28.62 kg/m??? Constitutional: Well developed, Well nourished, No acute distress, Non-toxic appearance. HENT: Normocephalic, Atraumatic, Bilateral external ears have normal appearance, Bilateral TMs clear, Oropharynx moist, No oral or pharyngeal exudates, Nose appears normal, nares are patent. Eyes: PERRLA, EOMI, Conjunctiva normal, No discharge. Neck: Normal range of motion, No tenderness, Supple, No stridor. No cervical lymphadenopathy noted. Cardiovascular: Normal heart rate, Normal rhythm, No murmurs, No rubs, No gallops. Thorax & Lungs: Normal breath sounds, No respiratory distress, No wheezing, No chest tenderness to palpation. Abdomen: Bowel sounds normal, Soft, Nontender, No masses, No pulsatile masses. Skin: Warm, Dry, No erythema, No rash. Back: No tenderness, No CVA tenderness. Extremities: Intact distal pulses, No edema, No tenderness, No cyanosis, No clubbing. Musculoskeletal: Good range of motion in all major joints with 5/5 muscle strength in all muscle groups, No tenderness to palpation or major deformities noted. Neurologic: Alert & oriented x 3, Normal motor function in all major muscle groups, Normal sensory function to all major dermatomes, No focal deficits noted. Psychiatric: Affect normal, Judgment normal, Mood normal. Impression: -Abnormal stress test: fixed inferior defect, scar vs artifact. No angina. -Dyspnea on exertion, likely in large due to severe COPD -Severe COPD -HTN Plan: -I discussed stress test results with patient. I informed him that he has a fixed inferior defect, which could be telephone claims representative of a prior infarct with scar versus artifact. I discussed with him options, including invasive coronary angiography for delineation of coronary anatomy and ruling out of critical lesions. Patient understands the procedure, and he defers any invasive procedures at this ti (more content not included)... [facility] Clinical Note 06-22-2022 Note Date & Type Note Facility 06-22-2022 Note PROCEDURE: XR HIP LT 2 3V W PELVIS HISTORY: Pain of left hip joint COMPARISON: None. FINDINGS: BONES:Slight narrowing of the superior aspect of the hip joint spaces bilaterally and small degenerative osteophytes along the superior rim of the acetabulum. No fracture, dislocation, bone lesion. SOFT TISSUES:No visible soft tissue swelling. EFFUSION:None visible. OTHER: Negative. IMPRESSION: 1. No acute bone abnormality. 2. Minimal degenerative changes of the hip joints bilaterally. Electronically authenticated by: REINIER DAVISON Date: 2022-06-22 08:42 [facility] Evaluation note 06-17-2022 Note Date & Type Note Facility 06-17-2022 Evaluation note Encounter Date Diagnosis Assessment Notes May, Strain of lumbar region, initial encounter (ICD-10 - S39.012A) Take medications as directed. Use caution when operating machinery with muscle relaxer as it may cause drowsiness. Alternating heat and ice to area 3-4 times per day. Rest a lot Follow up with primary care if there is no symptom improvement within the next week, sooner if symptoms worsen or new symptoms occur. [facility] Other Evaluation note 03-08-2022 Note Date & Type Note Facility 03-08-2022 Evaluation note Encounter Date Diagnosis Assessment Notes February, Chronic kidney disease, stage 3a (ICD-10 - N18.31) Likely from renovascular disease related to history of smoking. Patient also could have nephropathy from NSAID use. Patient has mild kidney disease. CKD stage IIIa. Creatinine 1.39. GFR 51 At low risk for CKD progression if he stops NSAIDs. Blood pressure seems reasonable. No need for blood pressure medications. I asked the patient to hydrate himself well I will check renal ultrasound along with protein to creatinine ratio and renal function panel next visit Follow-up with the patient in 3 months [facility] Other History general Narrative - Reported Note Date & Type Note Facility History general Narrative - Reported Type Medical History DYSLIPIDEMIA Medical History ESSENTIAL TREMOR Medical History ACUTE RIGHT SIDED THORACIC BACK PAIN Medical History COPD WITH ASTHMA Medical History SHORTNESS OF BREATH ON EXERTION Medical History ABNORMAL EKG Medical History PERSONAL HISTORY OF NICOTINE DEP ENDENCE Medical History PAIN IN LEFT LUMBAR REGION OF BA CK Surgical History VASECTOMY 2006 Surgical History TONSILS Surgical History COLONOSCOPY 2018 Surgical History TEETH Hospitalization History LUNG INFECTION 2013 [facility] Other Summary Purpose Family History No Family History Records FoundNo Family History Records FoundNo Family History Records FoundNo Family History Records Found Advance Directives No Advanced Directives Records FoundNo Advanced Directives Records FoundNo Advanced Directives Records FoundNo Advanced Directives Records Found Additional Source Comments (unrecognized sect ion and content) No Status Records FoundNo Status Records FoundNo Status Records FoundNo Status Records Found INFORMATION SOURCE (unrecogn ized section and content) DATE CREATED AUTHOR 04/19/2018 [facility] DATE CREATED AUTHOR AUTHOR'S ORGANIZ ATION 11/11/2022 [facility] DATE CREATED AUTHOR AUTHOR'S ORGANIZ ATION 07/08/2023 [facility] DATE CREATED AUTHOR AUTHOR'S ORGANIZ ATION 04/02/2024 [facility] EPIC REASON FOR VISIT (unrecogniz ed section and content) RENAL CKD 3LOW BACK PAIN RAD IATING DOWN BUTTOCK AND LEFT LEG FOR RECORDS PERTAINING TO PATIENTS WHO ARE OR HAVE BEEN ENROLLED IN A CHEMICAL DEPENDENCY/SUBSTANCEABUSE PROGRAM, SOME INFORMATION MAY BE OMITTED. This clinical summary was aggregated from multiple sources. Caution should be exercised in using it in the provision of clinical care. This summary normalizes information from multiple sources, and as a consequence, information in this document may materially change the coding, format and clinical context of patient data. In addition, data may be omitted in some cases. CLINICAL DECISIONS SHOULD BE BASED ON THE PRIMARY CLINICAL RECORDS. [facility]. provides no warranty or guarantee of the accuracy or completeness of information in this document.
--- NOTE | 2024-06-04 18:54 | W.PM.PROCNOT ---
Date of procedure: 06/04/24 Procedure: 6 Minute Walk Date: 06/04/2024 Indication: Chronic hypoxic respiratory failure MMRC: 2 Resting data: -BP: 153/84 -HR: 69 -SpO2: 92% -FiO2: RA (21%) -Carlitos: 1 Description: 6 minute walk was initiated according to standard protocol. Patient ambulated for a total of 2 minutes on room airwith the lowest SpO2 at 87%, the highest heart rate at 104, and highest Carlitos 6. This test was aborted, and a new 6 minute walk was initiated according to standard protocol beginning at 2L/min O2. Patient ambulated for a total of 6 minutes eventually requiring 6L/min O2 to maintain SpO2 @ 90%. Highest Carlitos was 5. Recovery data: -BP: 158/96 -HR: 88 -SpO2: 98 -FiO2: 6L/min -Carlitos: 2 Ambulation: Patient ambulated a total of 299m which is 81% predicted. There were no stops reported. Impressions: Ambulatory desaturations requiring titration of O2 to 6L/min to maintain SpO2 @ 89% or greater. Recommendations: 6L/min O2 with ambulation/activity. Clinical correlation required.
== END 2024-06-04 16:00 | disposition home or self-care (01) ==
LOC: CARD 15:59
PROVIDERS: PCP Internal Medicine; Visit Provider Internal Medicine
DX: J43.2 Centrilobular emphysema (principal); R09.02 Hypoxemia
CPT/HCPCS: 94618

== ENCOUNTER 2024-06-07 08:54 | Outpatient (OUT) | payer MEDICARE, OTHER, SELFPAY ==
--- OUTSIDE RECORDS SUMMARY | 2024-06-07 08:59 | XMS_ITS | CCD ---
Author Organization [facility] Care Team Providers Care Safety Intern Name Role Phone PHYSICIAN, DEFAULT Unavailable Unavailable [...] H Consulting Unavailable SEBASTIAN KOHLER Attending Unavailable SEBSATIAN KOHLER Attending Unavailable SRUTHI PINEDA Attending Unavailable FAWWAD, BARKER Attending Unavailable FAWWAD, BARKER Attending Unavailable Medications Current Medications Medication Drug Class(es) Dates Sig (Normalized) Sig (Original) [id number] 200 actuat albuterol 0.09 mg/actuat metered dose [...] oral tablet (1 source) alpha-Adrenergic Agonist, Uncompetitive J-lpouvm-E-aspartate Receptor Antagonist, Sigma-1 Agonist Capmist DM 60-15-400 [...] Range Facility Office Visiton 07-07-2023 Follow-up visit [id number] Spencer Dawn 1950 M Date Provider Department Center 07/07/2023 SEBASTIAN BOSS [facility] Family History Problem Relation Age of Onset No Known Problems Mother No Known Problems Father Family Status - Relation Status Age at Mother Father Level of Service:62136 [place] OFFICE/OUTPATIENT ESTABLISHED LOW MDM 20-29 MIN Normal [facility] Office Visiton 01-25-2023 Follow-up visit [id number] Spencer Dawn 1950 M Date Provider Department [facility] SADIQ Ro [facility] No family history on file Level of Service:79467 [place] OFFICE/OUTPATIENT NEW MODERATE MDM 45-59 MINUTES Reason for Visit and Comments: New Patient [632] - Est care- Ongoing SOB and results of heart test Normal [facility] CP ECHO W CONTRASTon 023 CP ECHO W CONTRAST Patient: CRISTI DAWN Exam Date: 11/10/2022 : 1950 Gender:M Ordering : SHAIKH Nathanael CONTRERAS . Admission #: [id number] Family : Order #: [id number] CLICK HERE TO VIEW EXAM ECHOCARDIOGRAM REPORT [...] Paz M.D. on 11/11/2022 at 13:41 Normal [facility] STRESS/REST MULTIon 11-10 [place] STRESS/REST MULTI Patient: SPENCER DAWN Exam Date: 11/10/2022 : 1950 Gender:M Ordering : SHAIKH Nathanael CONTRERAS . Admission #: [id number] Family : Order #: [id number] CLICK HERE TO VIEW EXAM RADIOLOGY REPORT [...] M.D. on 11/10/2022 at 15:21 Normal [facility] BNP[facility] 11-02-2022 Natriuretic peptide B (Bld) [Mass/Vol] 122.0 pg/mL Normal <=900.0 [facility] Comment on above: Performed By: #### C MP #### [facility] [address] [place] [address] Dr. Rdaha Gomez CBC AUTO DIFFon 11-02-2022 BASO # 0.1 103/ul Normal 0.0-0.1 [facility] Comment on above: Performed By: #### C MP #### [facility] [address] [place] [address] Dr. Radah Gomez Basophils/100 WBC (Bld) 0.8 % Normal 0.2-2.0 [facility] Comment on above: Performed By: #### C MP #### [facility] [address] [place] [address] Dr. Radha Gomez EO # 0.1 103/ul Normal 0.0-0.7 [facility] Comment on above: Performed By: #### C MP #### [facility] [address] [place] [address] Dr. Radha Gomez Eosinophils/100 WBC (Bld) 1.9 % Normal 0.9-7.0 [facility] Comment on above: Performed By: #### C MP #### [facility] [address] [place] [address] Dr. Radha Gomez Erythrocyte distribution width (RBC) [Ratio] 12.7 % Normal 11.0-15.0 [facility] Comment on above: Performed By: #### C MP #### [facility] [address] [place] [address] Dr. Radha Gomez Hematocrit (Bld) [Volume fraction] 49.8 % Normal 42.0-54.0 [facility] Comment on above: Performed By: #### C MP #### [facility] [address] [place] [address] Dr. Radha Gomez Hemoglobin (Bld) [Mass/Vol] 16.9 g/dL Normal 14.0-18.0 [facility] Comment on above: Performed By: #### C MP #### [facility] [address] [place] [address] Dr. Radha Gomez IG # 0.02 10e3/ul Normal 0.00-0.03 [facility] Comment on above: Performed By: #### C MP #### [facility] [address] [place] [address] Dr. Radha Gomez IG % 0.3 % Normal 0.0-0.5 [facility] Comment on above: Performed By: #### C MP #### [facility] [address] [place] [address] Dr. Radha Gomez LYMPH # 1.4 103/ul Normal 1.2-3.8 [facility] Comment on above: Performed By: #### C MP #### [facility] [address] [place] [address] Dr. Radha Gomez Lymphocytes/100 WBC (Bld) 19.3 % Critically low 20.5-60.0 [facility] Comment on above: Performed By: #### C MP #### [facility] [address] [place] [address] Dr. Radha Gomez MANUAL DIFF REQ NO Normal [facility] Comment on above: Performed By: #### C MP #### [facility] [address] [place] [address] Dr. Radha Gomez MCH (RBC) [Entitic mass] 31.9 pg Normal 25.9-34.0 [facility] Comment on above: Performed By: #### C MP #### [facility] [address] [place] [address] Dr. Radha Gomez MCHC (RBC) [Mass/Vol] 33.9 g/dL Normal 29.9-35.2 [facility] Comment on above: Performed By: #### C MP #### [facility] [address] [address] [address] Radha Gomez MCV (RBC) [Entitic vol] 94.0 fL Normal 80.0-94.0 [facility] Comment on above: Performed By: #### C MP #### [facility] [address] [address] [address] Radha Gomez MONO # 0.7 103/ul Normal 0.3-0.8 [facility] Comment on above: Performed By: #### C MP #### [facility] [address] [address] [address] Radha Gomez Monocytes/100 WBC (Bld) 9.5 % Normal 1.7-12.0 [facility] Comment on above: Performed By: #### C MP #### [facility] [address] [address] [address] Radha Gomez NEUT # 5.0 103/ul Normal 1.4-6.5 [facility] Comment on above: Performed By: #### C MP #### [facility] [address] [place] [address] Dr. Radha Gomez Neutrophils/100 WBC (Bld) 68.2 % Normal 43.0-75.0 [facility] Comment on above: Performed By: #### C MP #### [facility] [address] [address] [address] Radha Gomez Platelet mean volume (Bld) [Entitic vol] 9.0 fL Critically low 9.5-13.5 [facility] Comment on above: Performed By: #### C MP #### [facility] [address] [place] [address] Dr. Radha Gomez PLT 183 103/ul Normal 150-450 [facility] Comment on above: Performed By: #### C MP #### [facility] [address] [address] [address] Radha Gomez RBC 5.30 106/ul Normal 4.70-6.10 [facility] Comment on above: Performed By: #### C MP #### [facility] [address] [address] [address] Radha Gomez WBC 7.3 103/ul Normal 4.0-11.0 [facility] Comment on above: Performed By: #### C MP #### [facility] [address] [address] [address] Radha Gomez PROF CHEM 8 (BAS METB)on Anion gap [Moles/Vol] 11.7 mmol/L Normal [facility] Comment on above: Performed By: #### C MP #### [facility] [address] [address] [address] Radha Gomez Calcium [Mass/Vol] 9.5 mg/dL Normal 8.5-10.[address] [facility] Comment on above: Performed By: #### C MP #### [facility] [address] [place] [address] Dr. Radha Gomez Chloride [Moles/Vol] 105 mmol/L Normal 98-107 [facility] Comment on above: Performed By: #### C MP #### [facility] [address] [address] [address] Radha Gomez CO2 [Moles/Vol] 27.5 mmol/L Normal 21.0-32.0 [facility] Comment on above: Performed By: #### C MP #### [facility] [address] [address] [address] Radha Gomez Creatinine [Mass/Vol] 1.35 mg/dL Critically high 0.70-1.30 [facility] Comment on above: Performed By: #### C MP #### [facility] [address] [address] [address] Radha Gomez EGFR-AF PANAMANIAN >60 Normal >=60 [facility] Comment on above: Performed By: #### C MP #### [facility] [address] [place] [address] Dr. Radha Gomez EGFR-NON AF PANAMANIAN 52 mL/min/1.73m2 Critically low >=60 [facility] Comment on above: Performed By: #### C MP #### [facility] [address] [address] [address] Radha Gomez Glucose [Mass/Vol] 88 mg/dL Normal 74-106 [facility] Comment on above: Performed By: #### C MP #### [facility] [address] [address] [address] Radha Gomez Potassium [Moles/Vol] 4.2 mmol/L Normal 3.5-5.1 [facility] Comment on above: Performed By: #### C MP #### [facility] [address] [address] [address] Radha Gomez Sodium [Moles/Vol] 140 mmol/L Normal 136-145 [facility] Comment on above: Performed By: #### C MP #### [facility] [address] [address] [address] Radha Gomez Urea nitrogen [Mass/Vol] 19.0 mg/dL Critically high 7.0-18.0 [facility] Comment on above: Performed By: #### C MP #### [facility] [address] [address] [address] Radha Gomez Urea nitrogen/Creatinin e [Mass ratio] 14.1 mg/mg Normal [facility] Comment on above: Performed By: #### C MP #### [facility] [address] [address] [address] Radha Gmoez XR CHEST 2 Von 11-02-2022 XR CHEST [...] YANDY PINEDA Date: 2022-11-02 08:42 Normal [facility] XR LSPINE 2_3 VIEWSon 2021 XR LSPINE [...] by: YANDY MALONEY Date: 2022-06-21 15:47 Normal [facility] CT CHEST WO CONon 02-22-2022 CT CHEST [...] YANDY MALONEY Date: 2022-02-22 13:27 Normal [facility] CBC AUTO DIFFon 12-10-2021 BASO # 0.1 103/ul Normal 0.0-0.1 [facility] Comment on above: Performed By: #### C BC #### [facility] [address] [place] [address] Dr. Radha Gomez Basophils/100 WBC (Bld) 0.6 % Normal 0.2-2.0 [facility] Comment on above: Performed By: #### C BC #### [facility] [address] [place] [address] Dr. Radha Gomez EO # 0.3 103/ul Normal 0.0-0.7 [facility] Comment on above: Performed By: #### C BC #### [facility] [address] [place] [address] Dr. Radha Gomez Eosinophils/100 WBC (Bld) 3.1 % Normal 0.9-7.0 [facility] Comment on above: Performed By: #### C BC #### [facility] [address] [place] [address] Dr. Radha Gomez Erythrocyte distribution width (RBC) [Ratio] 12.8 % Normal 11.0-15.0 [facility] Comment on above: Performed By: #### C BC #### [facility] [address] [place] [address] Dr. Radha Gomez Hematocrit (Bld) [Volume fraction] 50.9 % Normal 42.0-54.0 [facility] Comment on above: Performed By: #### C BC #### [facility] [address] [place] [address] Dr. Radha Gomez Hemoglobin (Bld) [Mass/Vol] 17.3 g/dL Normal 14.0-18.0 [facility] Comment on above: Performed By: #### C BC #### [facility] [address] [place] [address] Dr. Radha Gomez IG # 0.02 10e3/ul Normal 0.00-0.03 [facility] Comment on above: Performed By: #### C BC #### [facility] [address] [place] [address] Dr. Radha Gomez IG % 0.3 % Normal 0.0-0.5 [facility] Comment on above: Performed By: #### C BC #### [facility] [address] [place] [address] Dr. Radha Gomez LYMPH # 1.4 103/ul Normal 1.2-3.8 [facility] Comment on above: Performed By: #### C BC #### [facility] [address] [place] [address] Dr. Radha Gomez Lymphocytes/100 WBC (Bld) 18.0 % Critically low 20.5-60.0 [facility] Comment on above: Performed By: #### C BC #### [facility] [address] [place] [address] Dr. Radha Gomez MANUAL DIFF REQ NO Normal [facility] Comment on above: Performed By: #### C BC #### [facility] [address] [place] [address] Dr. Radha Gomez MCH (RBC) [Entitic mass] 31.3 pg Normal 25.9-34.0 [facility] Comment on above: Performed By: #### C BC #### [facility] [address] [place] [address] Dr. Radha Gomez MCHC (RBC) [Mass/Vol] 34.0 g/dL Normal 29.9-35.2 [facility] Comment on above: Performed By: #### C BC #### [facility] [address] [place] [address] Dr. Radha Gomez MCV (RBC) [Entitic vol] 92.0 fL Normal 80.0-94.0 [facility] Comment on above: Performed By: #### C BC #### [facility] [address] [place] [address] Dr. Radha Gomez MONO # 0.7 103/ul Normal 0.3-0.8 [facility] Comment on above: Performed By: #### C BC #### [facility] [address] [place] [address] Dr. Radha Gomez Monocytes/100 WBC (Bld) 8.3 % Normal 1.7-12.0 [facility] Comment on above: Performed By: #### C BC #### [facility] [address] [place] [address] Dr. Radha Gomez NEUT # 5.5 103/ul Normal 1.4-6.5 [facility] Comment on above: Performed By: #### C BC #### [facility] [address] [place] [address] Dr. Radha Gomez Neutrophils/100 WBC (Bld) 69.7 % Normal 43.0-75.0 [facility] Comment on above: Performed By: #### C BC #### [facility] [address] [place] [address] Dr. Radha Gomez Platelet mean volume (Bld) [Entitic vol] 9.3 fL Critically low 9.5-13.5 [facility] Comment on above: Performed By: #### C BC #### [facility] [address] [place] [address] Dr. Radha Gomez PLT 168 103/ul Normal 150-450 [facility] Comment on above: Performed By: #### C BC #### [facility] [address] [place] [address] Dr. Radha Gomez RBC 5.53 106/ul Normal 4.70-6.10 [facility] Comment on above: Performed By: #### C BC #### [facility] [address] [place] [address] Dr. Radha Gomez WBC 7.9 103/ul Normal 4.0-11.0 [facility] Comment on above: Performed By: #### C BC #### [facility] [address] [place] [address] LUNG CANCER SCREENINGon [...] REINIER DAVISON Date: 2021-12-10 11:08 Normal [facility] PROF 14(COMP METB)on 022 Albumin [Mass/Vol] 3.7 g/dL Normal 3.5-5.[address] [facility] Comment on above: Performed By: #### C MP #### [facility] [address] [place] [address] Dr. Radha Gomez Albumin/Globulin [Mass ratio] 1.1 {ratio} Normal [facility] Comment on above: Performed By: #### C MP #### [facility] [address] [address] [address] Radha Gomez ALP [Catalytic activity/Vol] 92 U/L Normal 38-126 [facility] Comment on above: Performed By: #### C MP #### [facility] [address] [address] [address] Radha Gomez ALT [Catalytic activity/Vol] 26 U/L Normal 21-72 [facility] Comment on above: Performed By: #### C MP #### [facility] [address] [address] [address] Radha Gomez Anion gap [Moles/Vol] 13.0 mmol/L Normal [facility] Comment on above: Performed By: #### C MP #### [facility] [address] [address] [address] Radha Gomez AST [Catalytic activity/Vol] 20 U/L Normal 17-59 [facility] Comment on above: Performed By: #### C MP #### [facility] [address] [address] [address] Radha Gomez Bilirubin [Mass/Vol] 1.1 mg/dL Normal 0.2-1.3 [facility] Comment on above: Performed By: #### C MP #### [facility] [address] [address] [address] Radha Gomez Calcium [Mass/Vol] 9.3 mg/dL Normal 8.4-10.[address] [facility] Comment on above: Performed By: #### C MP #### [facility] [address] [address] [address] Radha Gomez Chloride [Moles/Vol] 106 mmol/L Normal 98-107 [facility] Comment on above: Performed By: #### C MP #### [facility] [address] [address] [address] Radha Gomez CO2 [Moles/Vol] 23.4 mmol/L Normal 22.0-30.0 [facility] Comment on above: Performed By: #### C MP #### [facility] [address] [address] [address] Radha Gomez Creatinine [Mass/Vol] 1.39 mg/dL Critically high 0.66-1.25 [facility] Comment on above: Performed By: #### C MP #### [facility] [address] [address] [address] Radha Gomez EGFR-AF PANAMANIAN >60 Normal >=60 [facility] Comment on above: Performed By: #### C MP #### [facility] [address] [address] [address] Radha Gomez EGFR-NON AF PANAMANIAN 51 mL/min/1.73m2 Critically low >=60 [facility] Comment on above: Performed By: #### C MP #### [facility] [address] [address] [address] Radha Gomez Globulin (S) [Mass/Vol] 3.4 g/dL Normal [facility] Comment on above: Performed By: #### C MP #### [facility] [address] [address] [address] Radha Gomez Glucose [Mass/Vol] 94 mg/dL Normal 74-106 [facility] Comment on above: Performed By: #### C MP #### [facility] [address] [address] [address] Radha Gomez Potassium [Moles/Vol] 4.4 mmol/L Normal 3.4-5.0 [facility] Comment on above: Performed By: #### C MP #### [facility] [address] [address] [address] Radha Gomez Protein [Mass/Vol] 7.1 g/dL Normal 6.1-8.2 [facility] Comment on above: Performed By: #### C MP #### [facility] [address] [address] [address] Radha Gomez Sodium [Moles/Vol] 138 mmol/L Normal 137-145 [facility] Comment on above: Performed By: #### C MP #### [facility] [address] [address] [address] Radha Gomez Urea nitrogen [Mass/Vol] 23.0 mg/dL Critically high 9.0-20.0 [facility] Comment on above: Performed By: #### C MP #### [facility] [address] [address] [address] Radha Gomez Urea nitrogen/Creatinin e [Mass ratio] 16.5 mg/mg Normal [facility] Comment on above: Performed By: #### C MP #### [facility] [address] [address] [address] Radha Gomez XR LSPINE 2_3 VIEWSon [...] by: REINIER DAVISON Date: 2021-12-10 11:13 Normal [facility] Vital Signs Date Time Vital Sign Value Performing Clinician Facility 06-17-2022 10:30-0400 Body height 185.42 cm Rowena Yancy Other [facility] Other 06-17-2022 10:30-0400 Body mass index (BMI) [Ratio] 28.36 kg/m2 Rowena Yancy Other [facility] Other 06-17-2022 10:30-0400 Body temperature 97.7 [degF] Rowena Haines Other [facility] Other 06-17-2022 10:30-0400 Body weight 97.52 kg Rowena Haines Other [facility] Other 06-17-2022 10:30-0400 Diastolic blood pressure 93 mm[Hg] Rowena Haines Other [facility] Other 06-17-2022 10:30-0400 Respiratory rate 18 /min Rowena Haines Other [facility] Other 06-17-2022 10:30-0400 SaO2% (BldA) [Mass fraction] 95 % Rowena Haines Other [facility] Other 06-17-2022 10:30-0400 Systolic blood pressure 135 mm[Hg] Rowena Haines Other [facility] Other 03-08-2022 11:20-0400 Body height 185.42 cm Azrafi Carrillos Other [facility] Other 03-08-2022 11:20-0400 Body mass index (BMI) [Ratio] 28.6 kg/m2 Azrafi Carrillos Other [facility] Other 03-08-2022 11:20-0400 Body temperature 97.9 [degF] Azrafi Carrillos Other [facility] Other 03-08-2022 11:20-0400 Body weight 98.34 kg Aziz Bakhous Other [facility] Other 03-08-2022 11:20-0400 Diastolic blood pressure 90 mm[Hg] Aziz Bakhous Other [facility] Other 03-08-2022 11:20-0400 Respiratory rate 20 /min Azrafi Bakhous Other [facility] Other 03-08-2022 11:20-0400 SaO2% (BldA) [Mass fraction] 90 % Aziz Bakhous Other [facility] Other 03-08-2022 11:20-0400 Systolic blood pressure 130 mm[Hg] Aziz Bakhous Other [facility] Other Encounters Encounter Date Encounter Type Care Provider Facility Start: 04-01-2024 End: 04-01-2024 ambulatory SHAIKH DIANE Not Available Start: 03-28-2024 End: 03-28-2024 ambulatory SRUTHI PINEDA Not Available Start: 10-10-2023 End: 10-10-2023 ambulatory BARKER FAYISSELD Not Available Start: 07-07-2023 End: 07-07-2023 ambulatory SEBASTIAN [facility] Start: 01-25-2023 End: 01-25-2023 [facility] Start: 11-10-2022 End: 11-11-[address] REINIER DAVISON Facility:[facility] Start: 11-02-2022 End: 11-03-2022 ambulatory YANDY PINEDA Facility:[facility] Start: 06-28-2022 End: 07-22-2022 ambulatory BARKER H FAYISSELD Facility:[facility] Start: 06-21-2022 End: 06-22-2022 ambulatory BARKER H FAWWAD Facility:[facility] Start: 06-17-2022 End: 06-17-2022 ambulatory Rowena Haines Other [facility] Other Start: 06-17-2022 Office outpatient visit 15 minutes Rowena Haines [facility] Start: 03-08-2022 End: 03-08-2022 ambulatory Lisa Lester Other [facility] Other Start: 03-08-2022 Office outpatient ne w 30 minutes Lisa Lester [facility] Start: 02-22-2022 End: 02-23-2022 ambulatory BARKER H FAWWAD Facility:[facility] Start: 12-10-2021 End: 12-11-2021 ambulatory RICHELLE HUNTLEY Facility:[facility] Start: 02-27-2018 End: 02-28-2018 Ambulatory DEFAULT PHYSICIAN Facility:[facility] Payers Date Payer Category Payer Medicare [id number]. [id number] 1958 Medicare [id number] 2.1 [id number] 1950 Unknown [id number] 2.16.84 [id number] 1950 Unknown [id number] 2.16.84 [id number] 1950 Unknown [id number] 2.16.84 [id number] 1950 Unknown [id number] 2.16.84 [id number] 1950 Unknown [id number] 2.16.84 [id number] 1950 Unknown [id number] 2.16.84 [id number] 1950 Unknown [id number] 2.16.84 [id number] 1950 Unknown [id number] 2.16.84 [id number] 1950 Unknown [id number] 2.16.840 .[id number] Unknown Social History Date Type Detail Facility Unknown if ever smoked [facility] Other Sex Assigned At Sex Assigned At Bir th [facility] Other Progress note 07-07-2023 Note Date & [...] history of COPD (chronic obstructive pulmonary disease) ([facility]), Emphysema of lung ([facility]), and Hypertension. Surgical History He has [...] check lipid panel (more content not included)... [facility] Progress note 07-07-2023 Note Date & Type Note Facility 07-07-2023 Note Patient here for 6 m o follow up abnormal stress test, dyspnea, and hypertension. Still denies chest pain. PCP manages his COPD/emphysema. He had CT chest and lab work a few weeks ago. [facility] Progress note 01-25-2023 Note Date & Type [...] a fixed inferior defect, which could be medical device sales representative of a prior infarct with scar versus artifact. I discussed with him options, including invasive coronary angiography for delineation of coronary anatomy and ruling out of critical lesions. Patient understands the procedure, and he defers any invasive procedures at this ti (more content not included)... [facility] Clinical Note 06-22-2022 Note Date & Type [...] authenticated by: REINIER DAVISON Date: 2022-06-22 08:42 [facility] Evaluation note 06-17-2022 Note Date & Type [...] if symptoms worsen or new symptoms occur. [facility] Other Evaluation note 03-08-2022 Note Date & [...] Follow-up with the patient in 3 months [facility] Other History general Narrative - Reported Note [...] History TEETH Hospitalization History LUNG INFECTION 2013 [facility] Other Summary Purpose Family History No Family [...] and content) DATE CREATED AUTHOR 04/19/2018 [facility] DATE CREATED AUTHOR AUTHOR'S ORGANIZ ATION 11/11/2022 [facility] DATE CREATED AUTHOR AUTHOR'S ORGANIZ ATION 07/08/2023 [facility] DATE CREATED AUTHOR AUTHOR'S ORGANIZ ATION 04/02/2024 [facility] EPIC REASON FOR VISIT (unrecogniz [...] BE BASED ON THE PRIMARY CLINICAL RECORDS. [employer] [facility]. provides no warranty or guarantee of the accuracy or completeness of information in this document.
[2024-06-07 09:12] LABS: Hemoglobin 17.1 g/dL (14.0-18.0)
[2024-06-07] MEDS: ALBUTEROL SULFATE 2.5 MG/3 ML VIAL NEB IH (10:25)
== END 2024-06-07 08:55 | disposition home or self-care (01) ==
LOC: CARD 08:54
PROVIDERS: PCP Internal Medicine; Visit Provider Internal Medicine
DX: J43.9 Emphysema, unspecified (principal)
CPT/HCPCS: 36415; 85018; 94060; 94726; 94729

== ENCOUNTER 2024-10-11 09:55 | Outpatient (OUT) | payer MEDICARE, OTHER, SELFPAY ==
--- NOTE | 2024-10-11 09:59 | CT_ITS ---
[address] [address] Patient Name: MARTIN DAWN MRN: [id number] date: 1950 Sex: M Assigned Patient Location: CT Current Patient Location: Accession/Order Number: [id number] Exam Date: 10/11/2024 10:05 Report Date: 10/14/2024 11:30 At the request of: DARLENE CHRISTENSEN Procedure: CT lung screening low-dose EXAMINATION: CT lung screening low-dose HISTORY: personal history of nicotine dependence Z87.891 COMPARISON: 06/13/2023 TECHNIQUE: Axial, Coronal, and Sagittal images were created without the administration of IV contrast material. Dose reduction techniques were achieved by using automated exposure control and/or adjustment of mA and/or kV according to patient size and/or use of iterative reconstruction technique. FINDINGS: LUNGS: Stable severe centrilobular emphysema with an upper lobe predominance. Mild stable bibasilar bronchiectasis. Scattered patchy infiltrates identified throughout both lung bases, atelectasis and/or scar is favored most significant in the medial aspect of the superior segment of the right lower lobe, axial image 67. There is been interval development of a new area of groundglass attenuation in the left upper lobe, axial image #64 measuring 2.4 cm in diameter with a second solid-appearing irregular nodule measuring 7.6 x 4.8 cm axial image 61 PLEURA: No mass, effusion, or pneumothorax. VASCULATURE: No abnormality. JOSE: No mass or pathologic adenopathy. MEDIASTINUM: Increased number of normal-sized lymph nodes CARDIAC: No enlargement or pericardial effusion CORONARY ARTERIES: Coronary calcifications are mild. AORTA: No aortic aneurysm. Mild calcific atherosclerosis CHEST WALL: No mass or axillary adenopathy BONES: No bone lesion or fracture. LIMITED ABDOMEN: Scattered hypodensities too small to characterize OTHER: Negative. CT/CT lung screening low-dose IMPRESSION: New left upper lobe solid nodule in the area of groundglass attenuation. 3 month follow-up recommended LUNG SCREENING: Lung-RADS Category 4A- Suspicious. Findings for which additional diagnostic testing and/ or tissue sampling is recommended. 3 month LDCT; PET/CT may be used when there is a >= 8 mm solid component. Electronically authenticated by: YANDY MALONEY Date: 10/14/2024 11:30
--- OUTSIDE RECORDS SUMMARY | 2024-10-11 10:11 | XMS_ITS | CCD ---
Author Organization [facility] CliniSyhi Care Team Providers Care Flight Inspector Name Role Phone PHYSICIAN, DEFAULT Unavailable Unavailable PHYSICIAN, DEFAULT Unavailable Unavailable LorenaFranklyn sierrarafi Unavailable Rowena Haines Unavailable DIANE, BARKER H Attending Unavailable DR YANDY MALONEY V Consulting Unavailable RICHELLE HUNTLEY Primary Care Unavailable FAWWAD, BARKER H Admitting Unavailable FAWWAD, BARKER H Referring Unavailable DR REINIER DAVISON Consulting Unavailable FAWWAD, BARKER H Consulting Unavailable YANDY PÉREZ Consulting Unavailable RICHELLE HUNTLEY Primary Care Unavailable FAWWAD, BARKER H Attending Unavailable FAWWAD, BARKER H Admitting Unavailable FAWWAD, BARKER H Consulting Unavailable DR REINIER DAVISON Consulting Unavailable FAWWAD, BARKER H Attending Unavailable RICHELLE HUNTLEY Primary Care Unavailable FAWWAD, BARKER H Admitting Unavailable FAWWAD, BARKER H Consulting Unavailable FAWWAD, BARKER H Attending Unavailable [...] KOHLER Attending Unavailable SEBASTIAN KOHLER Attending Unavailable Ave ROCKWELL, Demetrius Primary Care Provider [phone] DempseyZainab meier NP Unavailable SAUL PÉREZ Attending Unavailable SHAIKH CONTRERAS Attending Unavailable SHAIKH CONTRERAS Attending Unavailable SHAIKH CONTRERAS Attending Unavailable SAUL PÉREZ Attending Unavailable ZAINAB DEMPSEY Attending Unavailabl e SAUL PÉREZ Attending Unavailable Medications Current Medications Medication Drug Class(es) Dates Sig (Normalized) Sig (Original) [id number] 200 actuat albuterol 0.09 mg/actuat metered dose inhaler (4 sources) beta2-Adrenergic Agonist take 2 puff(s) by inhalation every four hours for wheezing albuterol HFA 90 mcg/act inhaler Inhale 2 puffs every 4 (four) hours if needed for wheezing Active take 2 puff(s) by in halation every four hours as needed Ventolin HFA 108 (90 Base) MCG/ACT 2 puf f as needed Inhalation every 4 hrs Active cyclobenzaprine hydrochloride 5 mg oral tablet (1 source) Muscle Relaxant Start: 06-17-2022 take 1 tablet by mouth every eight hours Cyclobenzaprine HCl 5 MG 1 tablet as needed Orally Three times a day May, Active Fluticasone-Umeclidin -Vilant (Trelegy Ellipta) 200-62.5-25 MCG/ACT aerosol powder (2 sources) take 1 puff(s) by inhalation once daily Fluticasone-Umeclidin -Vilant (Trelegy Ellipta) 200-62.5-25 MCG/ACT aerosol powder Inhale 1 puff Daily Active methylPREDNISolone 4 mg oral tablet (1 source) Corticosteroid Start: 06-17-2022 methylPREDNISolone 4 MG start tomorrow as directed [...] oral tablet (1 source) alpha-Adrenergic Agonist, Uncompetitive T-nfgvzm-L-aspartate Receptor Antagonist, Sigma-1 Agonist Capmist DM 60-15-400 MG 1 tablet at 4 hour intervals as needed Orally Four times a day Not-Taking Toradol 30 mg/ml (1 source) Start: 06-17-2022 Toradol 30 mg/ml May, 30 mg triamcinolone acetonide 40 mg/ml injectable suspension (1 source) Corticosteroid Start: 06-17-2022 Kenalog-40 May, 40 mg Problems Active Problems Problem Classification Problem Date Documented Date Episodic/Chronic Chronic kidney disease (4 sources) Chronic kidney disease stage 3A ; Translations: [Chronic kidney disease, stage 3a] Onset: 10-10-2023 10-10-2023 Chronic Chronic kidney disease (3 sources) Chronic kidney disease; Translations: [Chronic kidney disease, stage III (moderate)] Onset: 03-08-2022 Resolved: 03-08-2022 Chronic obstructive pulmonary disease and bronchiectasis (7 sources) Chronic obstructive pulmonary disease, unspecified; Translations: [Pulmonary emphysema] Onset: 12-16-2021 10-10-2023 Chronic Disorders of lipid metabolism (2 sources) Hyperlipidemia, unspecified; Translations: [Hyperlipidemia, unspecified] Onset: 07-07-2023 Chronic Mycoses (1 source) Pain in toe; Translations: [Tinea unguium] 08-19-2024 Episodic Other diseases of veins and lymphatics (1 source) Vascular insufficiency; Translations: [Venous insufficiency (chronic) (peripheral)] 08-19-2024 Episodic Other ear and sense organ disorders (2 sources) Impacted cerumen of bilateral ears; Translations: [Impacted cerumen, bilateral] Onset: 07-08-2024 07-08-2024 Episodic Other lower respiratory disease (4 sources) Other [...] Other Problems Problem Classification Problem Date Documented Date Episodic/Chronic Mood disorders (2 sources) Mood disorders Onset: 10-10-2023 10-10-2023 Other eye disorders (2 sources) Subconjunctival hemorrhage of left eye; Translations: [Conjunctival hemorrhage, left eye] Onset: 04-01-2024 04-01-2024 Episodic Other lower respiratory disease (1 source) Other [...] [facility] Facility Office Visiton 07-07-2023 Follow-up visit [id number] Spencer Dawn 1950 M Date Provider Department Center 07/07/2023 3848-SEBASTIAN KOHLER SADIQ [facility] Family History Problem Relation Age of Onset No Known Problems Mother No Known Problems Father Family Status - Relation Status Age at Mother Father Level of Service:94924 [place] OFFICE/OUTPATIENT ESTABLISHED LOW MDM 20-29 MIN Normal [facility] Office Visiton 01-25-2023 Follow-up visit [id number] Spencer Dawn 1950 M Date Provider Department Center 01/25/2023 3848-SEBASTIAN KOHLER CARD [facility] No family history on file Level of Service:90975 [place] OFFICE/OUTPATIENT NEW MODERATE MDM 45-59 MINUTES Reason for Visit and Comments: New Patient [632] - Est care- Ongoing SOB and results of heart test Normal [facility] CP ECHO W CONTRASTon 023 CP ECHO W CONTRAST Patient: CRISTI DAWN Exam Date: 11/10/2022 : 1950 Gender:M Ordering : SHAIKH Nathanael CONTRERAS . Admission #: [id number] Family : Order #: [id number] CLICK HERE TO VIEW EXAM ECHOCARDIOGRAM REPORT [...] Paz M.D. on 11/11/2022 at 13:[address] [facility] NM STRESS/REST MULTIon 11-10 NM STRESS/REST MULTI Patient: SPENCER DAWN Exam Date: 11/10/2022 : 1950 Gender:M Ordering : SHAIKH Nathanael CONTRERAS . Admission #: [id number] Family : Order #: [id number] CLICK HERE TO VIEW EXAM RADIOLOGY REPORT PROCEDURE: RADIONUCLIDE IMAGING STRESS/REST MULTI COMPARISON: NM STRESS/REST MULTI, 12/07/2017. INDICATIONS: Dyspnea on exertion [...] Davison M.D. on 11/10/2022 at 15:[address] [facility] BNPon 11-02-2022 Natriuretic peptide B (Bld) [Mass/Vol] 122.0 pg/mL Normal <=900.0 [facility] Comment on above: Performed By: #### C MP #### [facility] [address] [place] [address] Dr. Radha Gomez CBC AUTO DIFFon 11-02-2022 BASO # 0.1 103/ul Normal 0.0-0.1 [facility] Comment on above: Performed By: #### C MP #### [facility] [address] [place] [address] Dr. Radha Gomez Basophils/100 WBC (Bld) 0.8 % Normal 0.2-2.0 [facility] Comment on above: Performed By: #### C MP #### [facility] [address] [place] [address] Dr. Radha Gomez EO # 0.1 103/ul Normal 0.0-0.7 [facility] Comment on above: Performed By: #### C MP #### [facility] [address] [place] [address] Dr. Radha Gomez Eosinophils/100 WBC (Bld) 1.9 % Normal 0.9-7.0 [facility] Comment on above: Performed By: #### C MP #### [facility] [address] [place] [address] Dr. Radha Gomez Erythrocyte distribution width (RBC) [Ratio] 12.7 % Normal 11.0-15.0 [facility] Comment on above: Performed By: #### C MP #### [facility] [address] [place] [address] Dr. Radha Gomez Hematocrit (Bld) [Volume fraction] 49.8 % Normal 42.0-54.0 [facility] Comment on above: Performed By: #### C MP #### [facility] [address] [place] [address] Dr. Radha Gomez Hemoglobin (Bld) [Mass/Vol] 16.9 g/dL Normal 14.0-18.0 [facility] Comment on above: Performed By: #### C MP #### [facility] [address] [place] [address] Dr. Radha Gomez IG # 0.02 10e3/ul Normal 0.00-0.03 [facility] Comment on above: Performed By: #### C MP #### [facility] [address] [place] [address] Dr. Radha Gomez IG % 0.3 % Normal 0.0-0.5 [facility] Comment on above: Performed By: #### C MP #### [facility] [address] [place] [address] Dr. Radha Gomez LYMPH # 1.4 103/ul Normal 1.2-3.8 [facility] Comment on above: Performed By: #### C MP #### [facility] [address] [place] [address] Dr. Radha Gomez Lymphocytes/100 WBC (Bld) 19.3 % Critically low 20.5-60.0 [facility] Comment on above: Performed By: #### C MP #### [facility] [address] [place] [address] Dr. Radha Gomez MANUAL DIFF REQ NO Normal [facility] Comment on above: Performed By: #### C MP #### [facility] [address] [place] [address] Dr. Radha Gomez MCH (RBC) [Entitic mass] 31.9 pg Normal 25.9-34.0 [facility] Comment on above: Performed By: #### C MP #### [facility] [address] [place] [address] Dr. Radha Gomez MCHC (RBC) [Mass/Vol] 33.9 g/dL Normal 29.9-35.2 [facility] Comment on above: Performed By: #### C MP #### [facility] [address] [place] [address] Dr. Radha Gomez MCV (RBC) [Entitic vol] 94.0 fL Normal 80.0-94.0 [facility] Comment on above: Performed By: #### C MP #### [facility] [address] [place] [address] Dr. Radha Gomez MONO # 0.7 103/ul Normal 0.3-0.8 [facility] Comment on above: Performed By: #### C MP #### [facility] [address] [address] [address] Radha Gomez Monocytes/100 WBC (Bld) 9.5 % Normal 1.7-12.0 [facility] Comment on above: Performed By: #### C MP #### [facility] [address] [address] [address] Radha Gomez NEUT # 5.0 103/ul Normal 1.4-6.5 [facility] Comment on above: Performed By: #### C MP #### [facility] [address] [address] [address] Rahda Gomez Neutrophils/100 WBC (Bld) 68.2 % Normal 43.0-75.0 [facility] Comment on above: Performed By: #### C MP #### [facility] [address] [place] [address] Dr. Radha Gomez Platelet mean volume (Bld) [Entitic vol] 9.0 fL Critically low 9.5-13.5 [facility] Comment on above: Performed By: #### C MP #### [facility] [address] [place] [address] Dr. Radha Gomez PLT 183 103/ul Normal 150-450 [facility] Comment on above: Performed By: #### C MP #### [facility] [address] [place] [address] Dr. Radha Gomez RBC 5.30 106/ul Normal 4.70-6.10 [facility] Comment on above: Performed By: #### C MP #### [facility] [address] [place] [address] Dr. Radha Gomez WBC 7.3 103/ul Normal 4.0-11.0 [facility] Comment on above: Performed By: #### C MP #### [facility] [address] [place] [address] Dr. Radha Gomez PROF CHEM 8 (BAS METB)on Anion gap [Moles/Vol] 11.7 mmol/L Normal [facility] Comment on above: Performed By: #### C MP #### [facility] [address] [address] [address] Radha Gomez Calcium [Mass/Vol] 9.5 mg/dL Normal 8.5-10.1 [facility] Comment on above: Performed By: #### C MP #### [facility] [address] [address] [address] Radha Gomez Chloride [Moles/Vol] 105 mmol/L Normal 98-107 [facility] Comment on above: Performed By: #### C MP #### [facility] [address] [address] [address] Radha Gomez CO2 [Moles/Vol] 27.5 mmol/L Normal 21.0-32.0 [facility] Comment on above: Performed By: #### C MP #### [facility] [address] [address] [address] Radha Gomez Creatinine [Mass/Vol] 1.35 mg/dL Critically high 0.70-1.30 [facility] Comment on above: Performed By: #### C MP #### [facility] [address] [address] [address] Radha Gomez EGFR-AF KITTITIAN >60 Normal >=60 [facility] Comment on above: Performed By: #### C MP #### [facility] [address] [address] [address] Radha Gomez EGFR-NON AF KITTITIAN 52 mL/min/1.73m2 Critically low >=60 [facility] Comment on above: Performed By: #### C MP #### [facility] [address] [address] [address] Radha Gomez Glucose [Mass/Vol] 88 mg/dL Normal 74-106 [facility] Comment on above: Performed By: #### C MP #### [facility] [address] [address] [address] Radha Gomez Potassium [Moles/Vol] 4.2 mmol/L Normal 3.5-5.1 [facility] Comment on above: Performed By: #### C MP #### [facility] [address] [place], [place] [address] Dr. Radha Gomez Sodium [Moles/Vol] 140 mmol/L Normal 136-145 [facility] Comment on above: Performed By: #### C MP #### [facility] [address] [place], [place] [address] Dr. Radha Gomez Urea nitrogen [Mass/Vol] 19.0 mg/dL Critically high 7.0-18.0 [facility] Comment on above: Performed By: #### C MP #### [facility] [address] [place], [place] [address] Dr. Radha Gomez Urea nitrogen/Creatinin e [Mass ratio] 14.1 mg/mg Normal [facility] Comment on above: Performed By: #### C MP #### [facility] [address] [place], [place] [address] Dr. Radha Gomez XR CHEST 2 Von [...] correlation is suggested. Electronically authenticated by: YANDY PÉREZ Date: 2022-11-02 08:[address] [facility] XR LSPINE 2_3 VIEWSon 2021 XR [...] degenerative changes, stable Electronically authenticated by: YANDY Bhardwaj: 2022-06-21 15:47 Normal [facility] CT CHEST WO CONon 02-22-2022 [...] to document stability Electronically authenticated by: YANDY AMLONEY Date: 2022-02-22 13:27 Normal [facility] CBC AUTO DIFFon 12-10-2021 BASO # 0.1 103/ul Normal 0.0-0.1 [facility] Comment on above: Performed By: #### C BC #### [facility] [address] [address] [address] Radha Gomez Basophils/100 WBC (Bld) 0.6 % Normal 0.2-2.0 [facility] Comment on above: Performed By: #### C BC #### [facility] [address] [place] [address] Dr. Radha Gomez EO # 0.3 103/ul Normal 0.0-0.7 [facility] Comment on above: Performed By: #### C BC #### [facility] [address] [place] [address] Dr. Radha Gomez Eosinophils/100 WBC (Bld) 3.1 % Normal 0.9-7.0 [facility] Comment on above: Performed By: #### C BC #### [facility] [address] [place] [address] Dr. Radha Gomez Erythrocyte distribution width (RBC) [Ratio] 12.8 % Normal 11.0-15.0 [facility] Comment on above: Performed By: #### C BC #### [facility] [address] [place] [address] Dr. Radha Gomez Hematocrit (Bld) [Volume fraction] 50.9 % Normal 42.0-54.0 [facility] Comment on above: Performed By: #### C BC #### [facility] [address] [place] [address] Dr. Radha Gomez Hemoglobin (Bld) [Mass/Vol] 17.3 g/dL Normal 14.0-18.0 [facility] Comment on above: Performed By: #### C BC #### [facility] [address] [place] [address] Dr. Radha Gomez IG # 0.02 10e3/ul Normal 0.00-0.03 [facility] Comment on above: Performed By: #### C BC #### [facility] [address] [place] [address] Dr. Radha Gomez IG % 0.3 % Normal 0.0-0.5 [facility] Comment on above: Performed By: #### C BC #### [facility] [address] [place] [address] Dr. Radha Gomez LYMPH # 1.4 103/ul Normal 1.2-3.8 [facility] Comment on above: Performed By: #### C BC #### [facility] [address] [address] [address] Radha Gomez Lymphocytes/100 WBC (Bld) 18.0 % Critically low 20.5-60.0 [facility] Comment on above: Performed By: #### C BC #### [facility] [address] [place] [address] Dr. Radha Gomez MANUAL DIFF REQ NO Normal [facility] Comment on above: Performed By: #### C BC #### [facility] [address] [address] [address] Radha Gomez MCH (RBC) [Entitic mass] 31.3 pg Normal 25.9-34.0 [facility] Comment on above: Performed By: #### C BC #### [facility] [address] [place] [address] Dr. Radha Gomez MCHC (RBC) [Mass/Vol] 34.0 g/dL Normal 29.9-35.2 [facility] Comment on above: Performed By: #### C BC #### [facility] [address] [place] [address] Dr. Radha Gomez MCV (RBC) [Entitic vol] 92.0 fL Normal 80.0-94.0 [facility] Comment on above: Performed By: #### C BC #### [facility] [address] [place] [address] Dr. Radha Gomez MONO # 0.7 103/ul Normal 0.3-0.8 [facility] Comment on above: Performed By: #### C BC #### [facility] [address] [place] [address] Dr. Radha Gomez Monocytes/100 WBC (Bld) 8.3 % Normal 1.7-12.0 [facility] Comment on above: Performed By: #### C BC #### [facility] [address] [place] [address] Dr. Radha Gomez NEUT # 5.5 103/ul Normal 1.4-6.5 [facility] Comment on above: Performed By: #### C BC #### [facility] [address] [place] [address] Dr. Radha Gomez Neutrophils/100 WBC (Bld) 69.7 % Normal 43.0-75.0 [facility] Comment on above: Performed By: #### C BC #### [facility] [address] [place] [address] Dr. Radha Gomez Platelet mean volume (Bld) [Entitic vol] 9.3 fL Critically low 9.5-13.5 [facility] Comment on above: Performed By: #### C BC #### [facility] [address] [place] [address] Dr. Radha Gomez PLT 168 103/ul Normal 150-450 [facility] Comment on above: Performed By: #### C BC #### [facility] [address] [place] [address] Dr. Radha Gomez RBC 5.53 106/ul Normal 4.70-6.10 [facility] Comment on above: Performed By: #### C BC #### [facility] [address] [place] [address] Dr. Radha Gomez WBC 7.9 103/ul Normal 4.0-11.0 [facility] Comment on above: Performed By: #### C BC #### [facility] [address] [place] [address] LUNG CANCER SCREENINGon [...] REINIER DAVISON Date: 2021-12-10 11:08 Normal [facility] PROF 14(COMP METB)on 022 Albumin [Mass/Vol] 3.7 g/dL Normal 3.5-5.0 [facility] Comment on above: Performed By: #### C MP #### [facility] [address] [place] [address] Dr. Radha Gomez Albumin/Globulin [Mass ratio] 1.1 {ratio} Normal [facility] Comment on above: Performed By: #### C MP #### [facility] [address] [place] [address] Dr. Radha Gomez ALP [Catalytic activity/Vol] 92 U/L Normal 38-126 [facility] Comment on above: Performed By: #### C MP #### [facility] [address] [place] [address] Dr. Radha Gomez ALT [Catalytic activity/Vol] 26 U/L Normal 21-72 [facility] Comment on above: Performed By: #### C MP #### [facility] [address] [place] [address] Dr. Radha Gomez Anion gap [Moles/Vol] 13.0 mmol/L Normal [facility] Comment on above: Performed By: #### C MP #### [facility] [address] [place] [address] Dr. Radha Gomez AST [Catalytic activity/Vol] 20 U/L Normal 17-59 [facility] Comment on above: Performed By: #### C MP #### [facility] [address] [address] [address] Radha Gomez Bilirubin [Mass/Vol] 1.1 mg/dL Normal 0.2-1.3 [facility] Comment on above: Performed By: #### C MP #### [facility] [address] [address] [address] Radha Gomez Calcium [Mass/Vol] 9.3 mg/dL Normal 8.4-10.2 [facility] Comment on above: Performed By: #### C MP #### [facility] [address] [address] [address] Radha Gomez Chloride [Moles/Vol] 106 mmol/L Normal 98-107 [facility] Comment on above: Performed By: #### C MP #### [facility] [address] [address] [address] Radha Gomez CO2 [Moles/Vol] 23.4 mmol/L Normal 22.0-30.0 [facility] [place] [facility] Comment on above: Performed By: #### C MP #### [facility] [address] [address] [address] Radha Gomez Creatinine [Mass/Vol] 1.39 mg/dL Critically high 0.66-1.25 [facility] Comment on above: Performed By: #### C MP #### [facility] [address] [address] [address] Radha Gomez EGFR-AF KITTITIAN >60 Normal >=60 [facility] Comment on above: Performed By: #### C MP #### [facility] [address] [address] [address] Radha Gomez EGFR-NON AF KITTITIAN 51 mL/min/1.73m2 Critically low >=60 [facility] Comment on above: Performed By: #### C MP #### [facility] [address] [address] [address] Radha Gomez Globulin (S) [Mass/Vol] 3.4 g/dL Normal [facility] Comment on above: Performed By: #### C MP #### [facility] [address] [address] [address] Radha Gomez Glucose [Mass/Vol] 94 mg/dL Normal 74-106 [facility] Comment on above: Performed By: #### C MP #### [facility] [address] [address] [address] Radha Gomez Potassium [Moles/Vol] 4.4 mmol/L Normal 3.4-5.0 [facility] Comment on above: Performed By: #### C MP #### [facility] [address] [address] [address] Radha Gomez Protein [Mass/Vol] 7.1 g/dL Normal 6.1-8.2 [facility] Comment on above: Performed By: #### C MP #### [facility] [address] [address] [address] Radha Gomez Sodium [Moles/Vol] 138 mmol/L Normal 137-145 [facility] Comment on above: Performed By: #### C MP #### [facility] [address] [address] [address] Radha Gomez Urea nitrogen [Mass/Vol] 23.0 mg/dL Critically high 9.0-20.0 [facility] Comment on above: Performed By: #### C MP #### [facility] [address] [address] [address] Radha Gomez Urea nitrogen/Creatinin e [Mass ratio] 16.5 mg/mg Normal [facility] Comment on above: Performed By: #### C MP #### [facility] [address] [address] [address] Radha Gomez XR LSPINE 2_3 VIEWSon [...] by: REINIER DAVISON Date: 2021-12-10 11:[address] [facility] Vital Signs Date Time Vital Sign Value Performing Clinician Facility 08-22-2024 09:34-0400 Body height 185.4 cm Saul Brown DPM Work Phone: [facility] 08-22-2024 09:34-0400 Body mass index (BMI) [Ratio] 27.71 kg/m2 Saul Beto DPM Work Phone: [facility] 08-22-2024 09:34-0400 Body weight 95.25 kg Saul Pérez DPM Work Phone: [facility] 08-22-2024 09:34-0400 Diastolic blood pressure 80 mm[Hg] Saul Pérez DPM Work Phone: [facility] 08-22-2024 09:34-0400 Heart rate 88 /min Saul Pérez DPM Work Phone: [facility] 08-22-2024 09:34-0400 Systolic blood pressure 126 mm[Hg] Saul Pérez DPM Work Phone: [facility] 06-17-2022 10:30-0400 Body height 185.42 cm Rowena Yancy Other [facility] Other 06-17-2022 10:30-0400 Body mass index (BMI) [Ratio] 28.36 kg/m2 Rowena Yancy Other [facility] Other 06-17-2022 10:30-0400 Body temperature 97.7 [degF] Rowena Yancy Other [facility] Other 06-17-2022 10:30-0400 Body weight 97.52 kg Rowena Haines Other [facility] Other 06-17-2022 10:30-0400 Diastolic blood pressure 93 mm[Hg] Rowena Haines Other [facility] Other 06-17-2022 10:30-0400 Respiratory rate 18 /min Rowena Haines Other [facility] Other 06-17-2022 10:30-0400 SaO2% (BldA) [Mass fraction] 95 % Rowena Haines Other [facility] Other 06-17-2022 10:30-0400 Systolic blood pressure 135 mm[Hg] Rowena Haines Other [facility] Other 03-08-2022 11:20-0400 Body height 185.42 cm Lisa Legions Other [facility] Other 03-08-2022 11:20-0400 Body mass index (BMI) [Ratio] 28.6 kg/m2 Lisa Legions Other [facility] Other 03-08-2022 11:20-0400 Body temperature 97.9 [degF] Lisa Tinkoff [employer] Other [facility] Other 03-08-2022 11:20-0400 Body weight 98.34 kg Lisa Tinkoff [employer] Other [facility] Other 03-08-2022 11:20-0400 Diastolic blood pressure 90 mm[Hg] Lisa Tinkoff [employer] Other [facility] Other 03-08-2022 11:20-0400 Respiratory rate 20 /min Lisa Lester Other [facility] Other 03-08-2022 11:20-0400 SaO2% (BldA) [Mass fraction] 90 % Lisa Lester Other [facility] Other 03-08-2022 11:20-0400 Systolic blood pressure 130 mm[Hg] Lisa Lester Other [facility] Other Encounters Encounter Date Encounter Type Care Provider Facility Start: 08-22-2024 End: 08-22-2024 Bamboo flowsheet Saul Pérez DPM Work Phone: [facility] Start: 08-22-2024 End: 08-22-2024 Bamboo flowsheet Saul Pérez DPM Work Phone: [facility] Start: 08-22-2024 End: 08-22-2024 Patient encounter procedure Saul Pérez DPM Work Phone: [facility] Comment on above: Pain due to onychomy cosis of toenails of both feet (Primary Dx); Venous insufficiency Start: 08-22-2024 End: 08-22-2024 ambulatory SAUL PÉREZ Not Available Start: 07-08-2024 End: 07-08-2024 ambulatory ZAINAB DEMPSEY Not Available Start: 06-13-2024 End: 06-13-2024 ambulatory SAUL PÉREZ Not Available Start: 04-24-2024 End: 04-24-2024 ambulatory FARosaWAD Not Available Start: 04-01-2024 End: 04-01-2024 ambulatory BARKER FAWWAD Not Available Start: 03-28-2024 End: 03-28-2024 ambulatory SAUL PÉREZ Not Available Start: 10-10-2023 Patient encounter procedure Saul Pérez DPM Work Phone: [facility] Start: 10-10-2023 End: 10-10-2023 ambulatory SHAIKH DIANE Not Available Start: 07-07-2023 End: 07-07-2023 ambulatory NAILAMENLOSharifa [facility] Start: 01-25-2023 End: 01-25-2023 ambulatory [facility] Start: 11-10-2022 End: 11-11-[address] REINIER DAVISON Facility:[facility] Start: 11-02-2022 End: 11-03-2022 ambulatory YANDY PÉREZ Facility:[facility] Start: 06-28-2022 End: 07-22-2022 ambulatory SHAIKH Bobby CONTRERAS Facility:[facility] Start: 06-21-2022 End: 06-22-2022 ambulatory SHAIKH Bobby CONTRERAS Facility:[facility] Start: 06-17-2022 End: 06-17-2022 ambulatory Rowena Haines Other [facility] Other Start: 06-17-2022 Office outpatient vi sit 15 minutes Rowena Yancy [facility] [place] Start: 03-08-2022 End: 03-08-2022 ambulatory Franklyniz Bakstans Other [facility] Other Start: 03-08-2022 Office outpatient ne w 30 minutes Aziz Bakhous [facility] Start: 02-22-2022 End: 02-23-2022 ambulatory SHAIKH Bobby CONTRERAS Facility:[facility] Start: 12-10-2021 End: 12-11-2021 ambulatory RICHELLE HUNTLEY Facility:[facility] Start: 02-27-2018 End: 02-28-2018 Ambulatory DEFAULT PHYSICIAN Facility:[facility] Procedures Date Procedure Procedure Detail Performing Clinician Start: 10-30-2017 Colonoscopy Saul pearson DPM Work Phone: Plan of Treatment Date Care Activity Detail Author Start: 10-30-2027 Screening for malign ant neoplasm of colon [facility] Start: 01-06-2025 End: 01-06-2025 Patient encounter procedure 01/06/2025 9:00 AM EDT Office Visit [facility] [address] [place] [address] Zainab Dempsey, [employer] PATCHING MACHINE OPERATOR [address] [place] [address] [facility] Start: 10-31-2024 End: 10-31-2024 Patient encounter procedure 10/31/2024 9:30 AM EST Procedure Visit [facility] [address] [place] [address] Saul Pérez DPM [address] [address] [facility] Start: 10-17-2024 End: 10-17-2024 Patient encounter procedure 10/17/2024 9:00 AM EST Office Visit [facility] [address] [place] [address] Zainab Dempsey NP [address] [place] [address] [facility] Start: 10-10-2024 Medicare Annual Well ness (AWV) Medicare Annual Wellness (AWV) [facility] Start: 08-22-2024 End: 08-22-2024 Patient encounter procedure 08/22/2024 9:20 AM EDT Procedure Visit [facility] [address] [facility] [address] [place] [address] Saul Pérez DPM [address] [address] Pain due to onychomycosis of toenails of both feet (Primary Dx); Venous insufficiency [facility] Comment on above: Pain due to onychomy cosis of toenails of both feet (Primary Dx); Venous insufficiency Start: 06-30-2024 Influenza vaccination Influenza Vacc ine (#1) [facility] Start: 1950 Screening for malign ant neoplasm of colon [facility] Immunizations Immunization Date Immunization Notes Care Provider Candace macias 08-02-2024 influenza virus vacc ine, unspecified formulation Saul Pérez DPM Work Phone: [facility] 09-29-2023 influenza, high dose seasonal, preservative-free Saul Pérez DPM Work Phone: [facility] Payers Date Payer Category Payer Private Health Insurance [facility] [id number] 2015 Medicare MEDICARE [id number] 1959 Medicare [id number] Medicare [id number] 1950 Unknown [id number]. 593 1950 Unknown [id number] 2.16.840.1.226132.3.579.2. 593 1950 Unknown [id number] 2.16.840.1.763230.3.579.2. 593 1950 Unknown [id number] 2.16.840.1.772455.3.579.2. 593 1950 Unknown [id number] 2.16.840.1.097235.3.579.2. 593 1950 Unknown [id number] 2.16.840.1.702556.3.579.2. 593 1950 Unknown [id number] 2.16.840.1.943558.3.579.2. 1259 1950 Unknown [id number] 2.16.840.1.468813.3.579.2. 1259 1950 Unknown [id number] 2.16.840.1.366151.3.579.2. 1259 1950 Unknown [id number] 2.16.840.1.169457.3.579.2. 1259 1950 Unknown [id number] 2.16.840.1.753824.3.579.2. 1259 1950 Unknown [id number] 2.16.840.1.066797.3.579.2. 1259 1950 Unknown [id number] 2.16.840.1.009458.3.579.2. 1259 Unknown Social History Date Type Detail Facility Unknown if ever smoked [facility] Other Start: 07-08-2024 Sex Assigned At [facility] [employer] Other Start: 04-24-2024 [facility] History of tobacco use Current smoker [facility] History of tobacco use Cigarette Smoker [facility] Start: 04-24-2024 End: 07-08-2024 Cigarettes smoked current (pack per day) - Reported 1 [facility] History of tobacco use Passive smoker [facility] Start: 04-24-2024 Tobacco use and exposure Smokeless tobacco non-user [facility] Start: 07-08-2024 End: 08-22-2024 Alcoholic beverage intake Lifetime non-drinker (finding) [facility] Start: 1950 Sex assigned at Not on file [facility] History of Present illness Narrative 08-22-2024 Saul Pérez DPM - 08/22/2024 9:20 AM EDT Note Date & Type Note Facility 08-22-2024 History of Presen t illness Narrative Patient: Spencer Dawn : 1950 PCP: Demetrius Dorado MD SUBJECTIVE This is a 74 y.o. male that presents today with a CC of elongated, thick nails. Pt states nails have been elongated and thick for many years and cause pain with ambulation in shoegear. Pt has tried previous treatment with minimal relief. Pt presents today for nail care and treatment. Pt also has history of venous stasis to b/l lower extremities. Allergies: No Known Allergies Past Medical History: Past Medical History: Diagnosis Date Abnormal chest CT Abnormal EKG Acute right-sided thoracic back pain Bilateral impacted cerumen Blood pressure elevated without history of HTN CKD (chronic kidney disease), stage III (HCC) (CMS/HCC) COPD (chronic obstructive pulmonary disease) (CMS/HCC) GOLDEN (dyspnea on exertion) Dyslipidemia (high LDL; low HDL) (CMS/HCC) Essential tremor Left hip pain Muscle cramping Neurogenic claudication due to lumbar spinal stenosis Pain in left lumbar region of back Personal history of nicotine dependence Shortness of breath on exertion Medications: Current Outpatient Medications: albuterol HFA 90 mcg/act inhaler, Inhale 2 puffs every 4 (four) hours if needed for wheezing, Disp: , Rfl: Anbbqdxutet-Zxiczlzdb-Ttuduw (Trelegy Ellipta) 200-62.5-25 MCG/ACT aerosol powder , Inhale 1 puff Daily, Disp: , Rfl: Social History: Social History Socioeconomic History Marital status: Spouse name: Not on file Number of children: Not on file Years of education: Not on file Highest education level: Not on file Occupational History Not on file Tobacco Use Smoking status: Former Current packs/day: 1.00 Average packs/day: 1 pack/day for 50.0 years (50.0 ttl pk-yrs) Types: Cigarettes Passive exposure: Past Smokeless tobacco: Never Vaping Use Vaping status: Never Used Substance and Sexual Activity Alcohol use: Never Drug use: Never Sexual activity: Defer Other Topics Concern Not on file Social History Narrative Not on file Social Drivers of Health Financial Resource Strain: Not on file Food Insecurity: Not on file Transportation Needs: Not on file Physical Activity: Not on file Stress: Not on file Social Connections: Not on file Intimate Partner Violence: Unknown (12/21/2023) [facility] [place] Safety & Environment Fear of Current or Ex-Partner: Not on file Emotionally Abused: Not on file Physically Abused: Not on file Sexually Abused: Not on file Physically or Sexually Abused: Not on file Housing Stability: Not on file ROS: General: denies fever, chills, fatigue, malaise Gastrointestinal: denies abdominal pain, ulcers, or changes in appetite or bowel habits Musculoskeletal: denies arthritis, denies loss of strength, pain to hip, knees, back Cardiovascular: denies CP, palpitations, irregular rhythms OBJECTIVE LE EXAM: DERM: Elongated thick yellow crumbly nails digits 1 through 10. Positive hair growth b/l feet. Plus one pitting edema to bilateral ankles VASC: Positive palpable pedal pulses bilaterally NEURO: Gross sensation intact to bilateral feet ORTHO: Positive pain on palpation to nails 1 through 10 ASSESSMENT 1. Pain due to onychomycosis of toenails of both feet 2. Venous insufficiency PLAN Discussed proper foot care with patient today. Debride nails in length and thickness digits 1 through 10 Saul Pérez DPM documented in this encounter [facility] Evaluation note 08-22-2024 Note Date & Type Note Facility 08-22-2024 Evaluation note Diagnosis Stage 3a chronic kidney disease (HCC) (CMS/HCC)- Primary Encounter for Medicare annual wellness exam Pulmonary emphysema, unspecified emphysema type (CMS/HCC) COPD with exacerbation (CMS/HCC) Stage 3a chronic kidney disease (HCC) (CMS/HCC)- Primary Pulmonary emphysema, unspecified emphysema type (CMS/HCC) Subconjunctival hemorrhage of left eye Pulmonary emphysema, unspecified emphysema type (CMS/HCC)- Primary Stage 3a chronic kidney disease (HCC) (CMS/HCC) Pulmonary emphysema, unspecified emphysema type (CMS/HCC)- Primary Stage 3a chronic kidney disease (HCC) (CMS/HCC) Impacted cerumen of both ears Impacted cerumen Pain due to onychomycosis of toenails of both feet- Primary Venous insufficiency Unspecified venous (peripheral) insufficiency documented in this encounter [facility] Progress note 07-07-2023 Note Date [...] history of COPD (chronic obstructive pulmonary disease) (CMS/HCC), Emphysema of lung (CMS/HCC), and Hypertension. Surgical History He has a [...] check lipid panel (more content not included)... [facility] Progress note 07-07-2023 Note Date & Type Note Facility 07-07-2023 Note Patient here for 6 m o follow up abnormal stress test, dyspnea, and hypertension. Still denies chest pain. PCP manages his COPD/emphysema. He had CT chest and lab work a few weeks ago. [facility] Progress note 01-25-2023 Note Date & [...] a fixed inferior defect, which could be telemarketing representative of a prior infarct with scar versus artifact. I discussed with him options, including invasive coronary angiography for delineation of coronary anatomy and ruling out of critical lesions. Patient understands the procedure, and he defers any invasive procedures at this ti (more content not included)... [facility] Clinical Note 06-22-2022 Note Date & [...] authenticated by: REINIER DAVISON Date: 2022-06-22 08:42 [facility] Evaluation note 06-17-2022 Note Date [...] if symptoms worsen or new symptoms occur. [facility] Other Evaluation note 03-08-2022 Note Date & [...] Follow-up with the patient in 3 months [facility] Other History general Narrative - Reported Note [...] History TEETH Hospitalization History LUNG INFECTION 2013 [facility] Other Summary Purpose Family History No Family [...] and content) DATE CREATED AUTHOR 04/19/2018 [facility] DATE CREATED AUTHOR AUTHOR'S ORGANIZ ATION 11/11/2022 [facility] DATE CREATED AUTHOR AUTHOR'S ORGANIZ ATION 07/08/2023 [facility] DATE CREATED AUTHOR AUTHOR'S ORGANIZ ATION 08/23/2024 [facility] EPIC REASON FOR VISIT (unrecogniz ed section and content) Reason Comments Toenail Care Non DM Nails Care Teams (unrecognized sec tion and content) Flight Inspector Relationship Specialty Start Date End Date Demetrius Dorado MD [address] [place] [address] PCP - General Family Medicine 06/05/24 Zainab Dempsey NP [address] [place] [address] Nurse Practitioner Family Medicine 06/05/24 Flight Inspector Relationship Specialty Start Date End Date Demetrius Dorado MD [address] [place] [address] PCP - General Family Medicine 06/05/24 Zainab Dempsey NP [address] [place] [address] Nurse Practitioner Family Medicine 06/05/24 FOR RECORDS PERTAINING TO PATIENTS WHO ARE [...] BE BASED ON THE PRIMARY CLINICAL RECORDS. [facility] [employer] [facility]. provides no warranty or guarantee of the accuracy or completeness of information in this document.
== END 2024-10-11 09:56 | disposition home or self-care (01) ==
LOC: CT 09:55
PROVIDERS: Visit Provider Internal Medicine
DX: Z87.891 Personal history of nicotine dependence (principal); Z12.2 Encounter for screening for malignant neoplasm of respiratory organs
CPT/HCPCS: 71271

== ENCOUNTER 2025-01-08 14:04 | Outpatient (OUT) | payer MEDICARE, OTHER, SELFPAY ==
--- NOTE | 2025-01-08 14:09 | CT_ITS ---
The [address] [address] Patient Name: MARTIN DAWN MRN: [id number] date: 1950 Sex: M Assigned Patient Location: CT Current Patient Location: CT Accession/Order Number: [id number] Exam Date: 01/08/2025 18:00 Report Date: 01/08/2025 18:07 At the request of: DARLENE CHRISTENSEN DO Procedure: CT chest wo con CT Chest without contrast TECHNIQUE: Axial imaging with 2-D reconstruction. The CT exam was performed using one or more the following dose reduction techniques: Automated exposure control, adjustment of the MA and/or Kv according to patient size, or use of the iterative reconstruction technique. History: Multiple pulmonary nodules COMPARISON: 06/13/2023 THYROID: Unremarkable TRACHEA AND BRONCHI: Patent ESOPHAGUS: Unremarkable. HEART: Within normal limits PERICARDIAL EFFUSION: None CORONARY ARTERY CALCIFICATION: None MEDIASTINUM: Small mediastinal lymph nodes redemonstrated.. No pneumoperitoneum. No mediastinal hematoma. PULMONARY JOSE: Calcified hilar lymph nodes consistent with chronic granulomatous disease THORACIC AORTA atherosclerosis. No aneurysm. LUNG NODULE and redemonstration of 1 cm nodular consolidation anterior portion of the left upper lobe seen with image #40 and 41. LUNGS: Marked emphysematous changes redemonstrated. Redemonstration of chronic scarring medial portion of the right lower lobe in paraspinal region.. Additional the posterior basilar atelectasis/scarring. PLEURAL EFFUSION: None PNEUMOTHORAX: No pneumothorax seen. CHEST WALL: No abnormality AXILLA:Unremarkable BONY STRUCTURES thoracic spondylosis/hyperostosis. UPPER ABDOMEN: Several hepatic cysts. CT/CT chest wo con IMPRESSION: Similar marked emphysema and right lower lobe focal region of scarring. A similar basal atelectasis/scarring. Developing 1 cm nodularity in the anterior portion of the left upper lobe seen with image #40 and 41. May be consideration for inflammatory nodule. Follow-up assessment in 3-6 months recommended. Impression dictated by: Tonny Aguilar M.D.01/08/2025 6:07 PM Dictation Location: [place] [address] Electronically authenticated by: [id number] Y Date: 01/08/2025 18:07
== END 2025-01-08 14:05 | disposition home or self-care (01) ==
LOC: CT 14:05
PROVIDERS: Visit Provider Internal Medicine
DX: R91.8 Other nonspecific abnormal finding of lung field (principal)
CPT/HCPCS: 71250

== ENCOUNTER 2025-02-27 10:06 | Outpatient (OUT) | payer MEDICARE, OTHER, SELFPAY ==
[2025-02-27 10:41] LABS: Basophils Absolute Auto 0.1 10^3/uL (0.0-0.1); Basophils Percent Auto 0.7 % (0.2-2.0); Eosinophils Absolute Auto 0.1 10^3/uL (0.0-0.7); Eosinophils Percent Auto 1.7 % (0.9-7.0); Hematocrit 50.2 % (42.0-54.0); Hemoglobin 17.1 g/dL (14.0-18.0); Immature Granulocytes Abs Auto 0.02 10^3/uL (0.00-0.03); Immature Granulocytes Pct Auto 0.3 % (0.0-0.5); Lymphocytes Absolute Auto 1.1 10^3/uL (1.2-3.8); Lymphocytes Percent Auto 15.3 % (20.5-60.0); Mean Corpuscular HGB Conc 34.1 g/dL (29.9-35.2); Mean Corpuscular Hemoglobin 32.1 pg (25.9-34.0); Mean Corpuscular Volume 94.4 fL (80.0-94.0); Monocytes Absolute Auto 0.6 10^3/uL (0.3-0.8); Monocytes Percent Auto 7.7 % (1.7-12.0); Neutrophils Absolute Auto 5.5 10^3/uL (1.4-6.5); Neutrophils Percent Auto 74.3 % (43.0-75.0); Platelet Count 169 10^3/uL (150-450); Red Blood Count 5.32 10^6/uL (4.70-6.10); Red Cell Distribution Width 13.2 % (11.0-15.0); White Blood Count 7.4 10^3/uL (4.0-11.0)
[2025-02-27 10:43] LABS: Bilirubin Urine NEGATIVE (NEGATIVE); Blood Urine NEGATIVE (NEGATIVE); Clarity Urine CLEAR (CLEAR); Color Urine LT. YELLOW (YELLOW); Glucose Urine UA NEGATIVE (NEGATIVE); Ketones Urine NEGATIVE (NEGATIVE); Leukocyte Esterase Urine NEGATIVE (NEGATIVE); Nitrite Urine NEGATIVE (NEGATIVE); Protein Urine NEGATIVE (NEG/TRACE); Urobilinogen Urine 0.2 EU/dL (0.2-1.0)
[2025-02-27 10:46] LABS: Urine Microscopic Indicated NO
[2025-02-27 11:02] LABS: Creatinine Urine Random 148.13 mg/dL (20.00-300.00); Microalbum Creatinine Ratio Ur 18.2 mg/g (0.0-29.9); Microalbumin Urine Random 2.7 mg/dL (<=30.0)
[2025-02-27 12:30] LABS: Alanine Aminotransferase 31 U/L (16-63); Albumin Globulin Ratio 1.2; Albumin Level 3.8 g/dL (3.4-5.0); Alkaline Phosphatase 83 U/L (46-116); Aspartate Amino Transferase 20 U/L (15-37); BUN Creatinine Ratio 16.4; Bilirubin Total 1.4 mg/dL (0.2-1.0); Calcium 9.9 mg/dL (8.5-10.1); Carbon Dioxide 28.3 mmol/L (21.0-32.0); Estimated GFR (African America 50 (>=60 mL/min/1.73m^2); Estimated GFR (Non-African Ame 41 (>=60 mL/min/1.73m^2); Free T3 2.62 pg/mL (2.18-3.98); Globulin 3.2 g/dL; Glucose 91 mg/dL (74-106); Thyroid Stimulating Hormone 1.976 uIU/mL (0.358-3.740)
[2025-02-27 12:40] LABS: Free T4 1.11 ng/dL (0.76-1.46)
[2025-02-27 13:16] LABS: Anion Gap 11.8; Chloride 102 mmol/L (98-107); Potassium 4.1 mmol/L (3.5-5.1); Sodium 138 mmol/L (136-145)
[2025-02-28 05:07] LABS: Vitamin B12 209 pg/mL (232-1245)
== END 2025-02-27 10:07 | disposition home or self-care (01) ==
LOC: LAB 10:11
PROVIDERS: PCP Nurse Practitioner; Visit Provider Nurse Practitioner
DX: R25.1 Tremor, unspecified (principal); M79.10 Myalgia, unspecified site; Z12.5 Encounter for screening for malignant neoplasm of prostate; J43.2 Centrilobular emphysema; J96.11 Chronic respiratory failure with hypoxia; N18.31 Chronic kidney disease, stage 3a
CPT/HCPCS: 36415; 80053; 81003; 82043; 82306; 82570; 82607; 83735; 84439; 84443; 84481; 85025

== ENCOUNTER 2025-03-25 08:36 | Outpatient (OUT) | payer MEDICARE, OTHER, SELFPAY ==
--- OUTSIDE RECORDS SUMMARY | 2025-03-11 13:40 | XMS_ITS | Encounter Summary ---
Author Organization [facility] Address [address] [facility] [place] [address] Care Team Providers Care Project Landscape Architect Name Role Phone Demetrius Dorado MD Primary Care Provider [phone] Zainab Dempsey NP Unavailable [phone] Reason for Visit * Reason Comments Follow-up Encounter Details Date Type Department Care Team (Late st Contact Info) Description 03/11/2025 1:40 PM EDT [facility] [address] [address] Darlene De Souza NP [address] [place] [address] Tremor (Primary Dx); Impacted cerumen of both ears; Chronic kidney disease, stage 3a (HCC) (CMS/HCC); Vitamin D deficiency; Vitamin B12 deficiency Social History Tobacco Use Types Packs/Day Years Used Date Smoking Tobacco: Former Cigarettes 1 50 Passive Smoke Exposure: Past Smokeless Tobacco: Never Alcohol Use Standard Drinks/Week Comments Never 0 (1 standard drink = 0.6 oz pur e alcohol) PHQ-2 Answer Date Recorded Patient Health Questionnaire-2 Score 0 10/16/2024 Sex and Gender Information Value Date Recorded Sex Assigned at Not on file Legal Sex Male 10:00 AM EDT Gender Identity Not on file Sexual Orientation Not on file documented as of this encounter Last Filed Vital Signs Vital Sign Reading Time Taken Comments Blood Pressure 118/80 03/11/2025 1:49 PM EDT Pulse 68 03/11/2025 1:49 PM EDT Temperature 36.9 C (98.5 F) 03/11/2025 1:49 PM EDT Respiratory Rate 20 03/11/2025 1:49 PM EDT Oxygen Saturation 90% 03/11/2025 1:49 PM EDT Inhaled Oxygen Concentration - - Weight 95.7 kg (211 lb) 03/11/2025 1:49 PM EDT Height - - Body Mass Index 28.62 03/05/2025 1:46 PM EDT documented in this encounter Progress Notes * Darlene De Souza NP - 03/11/2025 2:14 PM EDTAssociated Problem(s): Impacted cerumen of both ears cleared * Darlene De Souza NP - 03/11/2025 2:14 PM EDTAssociated Problem(s): Vitamin D deficiency Taking vit d3 daily * Darlene De Souza NP - 03/11/2025 2:14 PM EDTAssociated Problem(s): Vitamin B12 deficiency Vit b12 supplement, is currently taking 500mcg daily, increase to 1000mcg daily * Darlene De Souza NP - 03/11/2025 2:13 PM EDTAssociated Problem(s): Chronic kidney disease, stage 3a (HCC) ([facility]/HCC) Continue to monitor, appears to be stable * Darlene De Souza NP - 03/11/2025 1:40 PM EDT Images from the original note were not included. Spencer Arroyo is a 75 y.o. male presents with chief complaint of Follow-up HPI: Here for recheck: overall is doing well , Has started his vit d and vit b12 as well as b luis from neurology Used ear wax removal drops did well, large amount out SUBJECTIVE: MEDICATIONS: Current Outpatient Medications Medication Instructions albuterol HFA 90 mcg/act inhaler 2 puffs, Every 4 hours PRN cholecalciferol (VITAMIN D-3) 125 mcg, Oral, Daily Erwarzpzspf-Ozyuyhebk-Udeqly (Trelegy Ellipta) 200-62.5-25 MCG/ACT aerosol powder 1 puff, Daily propranolol LA (INDERAL LA) 60 mg, Oral, Daily, Do not crush, chew, or split. ALLERGIES: No Known Allergies REVIEW OF SYMPTOMS: Review of Systems Constitutional: Negative for activity change, appetite change and unexpected weight change. HENT: Negative for ear pain, nosebleeds, sneezing, trouble swallowing and voice change. Eyes: Negative for pain, discharge and visual disturbance. Respiratory: Negative for apnea, chest tightness and wheezing. Cardiovascular: Negative for leg swelling. Gastrointestinal: Negative for abdominal distention, blood in stool, constipation and diarrhea. Genitourinary: Negative for decreased urine volume, difficulty urinating, dysuria and hematuria. Skin: Negative for color change. Neurological: Positive for tremors. Negative for dizziness and seizures. Psychiatric/Behavioral: Negative for agitation, decreased concentration, hallucinations, self-injury and suicidal ideas. The patient is not nervous/anxious. Hematological: Negative for adenopathy. Does not bruise/bleed easily. Endocrine: Negative for cold intolerance, heat intolerance, polydipsia and polyuria. Allergic/Immunologic: Negative for environmental allergies and food allergies. PAST MEDICAL HISTORY Past Medical History: Diagnosis Date Abnormal chest CT Abnormal EKG Acute right-sided thoracic back pain Bilateral impacted cerumen Blood pressure elevated without history of HTN CKD (chronic kidney disease), stage III (HCC) (CMS/[facility]) COPD (chronic obstructive pulmonary disease) ([facility]) GOLDEN (dyspnea on exertion) Dyslipidemia (high LDL; low HDL) ([facility]) Essential tremor Left hip pain Muscle cramping Neurogenic claudication due to lumbar spinal stenosis Pain in left lumbar region of back Personal history of nicotine dependence Shortness of breath on exertion Past Surgical History: Procedure Laterality Date TONSILLECTOMY VASECTOMY 2006 family history includes Hyperlipidemia in his mother and sister. OBJECTIVE: Visit Vitals BP 118/80 (BP Location: Left arm, Patient Position: Sitting, BP Cuff Size: Adult long) Pulse 68 Temp 98.5 ??F (Temporal) Resp 20 Wt 211 lb SpO2 90% BMI 28.62 kg/m?? Smoking Status Former BSA 2.21 m?? Physical Exam Vitals and nursing note reviewed. Constitutional: Appearance: Normal appearance. HENT: Head: Normocephalic. Right Ear: Tympanic membrane, ear canal and external ear normal. Left Ear: Tympanic membrane, ear canal and external ear normal. Mouth/Throat: Mouth: Mucous membranes are moist. Pharynx: Oropharynx is clear. Eyes: Extraocular Movements: Extraocular movements intact. Conjunctiva/sclera: Conjunctivae normal. Cardiovascular: Rate and Rhythm: Normal rate and regular rhythm. Pulses: Normal pulses. Heart sounds: Normal heart sounds. Pulmonary: Effort: Pulmonary effort is normal. Breath sounds: Normal breath sounds. No wheezing or rhonchi. Abdominal: General: Bowel sounds are normal. Palpations: Abdomen is soft. Musculoskeletal: Cervical back: Neck supple. Right lower leg: No edema. Left lower leg: No edema. Skin: General: Skin is warm and dry. Capillary Refill: Capillary refill takes 2 to 3 seconds. Neurological: General: No focal deficit present. Mental Status: He is alert. Psychiatric: Mood and Affect: Mood normal. Behavior: Behavior normal. Thought Content: Thought content normal. Judgment: Judgment normal. ASSESSMENT AND PLAN: Follow up in about 3 months (around 06/11/2025) for Recheck. Problem List Items Addressed This Visit Chronic kidney disease, stage 3a (HCC) (CMS/HCC) Continue to monitor, appears to be stable Impacted cerumen of both ears cleared Tremor - Primary No family hx of parkinson's, was told some time ago had essential tremors Had labs, saw neurology and is started on propranolol at appt 03/05/25 Vitamin D deficiency Taking vit d3 daily Vitamin B12 deficiency Vit b12 supplement, is currently taking 500mcg daily, increase to 1000mcg daily * Darlene De Souza NP - 03/11/2025 6:46 AM EDTAssociated Problem(s): Tremor No family hx of parkinson's, was told some time ago had essential tremors Had labs, saw neurology and is started on propranolol at appt 03/05/25 documented in this encounter Plan of Treatment Upcoming Encounters Date Type Department Care Team (Late st Contact Info) Description 04/03/2025 3:00 PM EDT Procedure Visit [facility] [address] [facility] [address] [place] [phone] Saul éPrez DPM [address] [place] [address] 04/21/2025 10:30 AM EDT Procedure Visit [facility] [place] [address] [place] [phone] Yulissa Stanford DO [address] [place] [address] 05/27/2025 2:40 PM EDT Office Visit [facility] [address] [place] [phone] Katy Floyd NP [address] [place], [place] 06/11/2025 1:00 PM EDT Office Visit [facility] [address] [place] [phone] Darlene De Souza NP [address] [place] [phone] documented as of this encounter Visit Diagnoses Diagnosis Tremor- Primary Abnormal involuntary movements Impacted cerumen of both ears Impacted cerumen Chronic kidney disease, stage 3a (HCC) (CMS/HCC) Vitamin D deficiency Vitamin B12 deficiency Other B-complex deficiencies documented in this encounter Additional Health Concerns Assessment Noted Time PHQ-9 Depression Total Score: 0 10/16/20 24 9:00 AM EST documented as of this encounter Care Teams Project Landscape Architect Relationship Specialty Start Date End Date Demetrius Dorado MD [address] [place] [phone] PCP - General Family Medicine 06/05/24 Zainab Dempsey NP [address] [place] [address] Nurse Practitioner Family Medicine 06/05/24 documented as of this encounter
--- OUTSIDE RECORDS SUMMARY | 2025-03-25 08:42 | XMS_ITS | Encounter Summary ---
Author Organization [facility] Address [address] [place] [address] Care Team Providers Care Manager Of Program Name Role Phone Demetrius Dorado MD Primary Care Provider [phone] Zainab Dempsey NP Unavailable [phone] Encounter Details Date Type Department Care Team (Late Contact Info) Description 06/07/2024 Clinisync Result Encounter [facility] External Department Unsolicited Shaikh Knight MD [address] [place] [id number] Social History Tobacco Use Types Packs/Day Years Used Date Smoking Tobacco: Former Cigarettes 1 50 Passive Smoke Exposure: Past Smokeless Tobacco: Never Alcohol Use Standard Drinks/Week Comments Never 0 (1 standard drink = 0.6 oz pur e alcohol) PHQ-2 Answer Date Recorded Patient Health Questionnaire-2 Score 0 04/24/2024 Sex and Gender Information Value Date Recorded Sex Assigned at Not on file Legal Sex Male 10:00 AM EDT Gender Identity Not on file Sexual Orientation Not on file documented as of this encounter Plan of Treatment Upcoming Encounters Date Type Department Care Team (Late Contact Info) Description 04/03/2025 3:00 PM EDT Procedure Visit [facility] [address] [facility] 120 [place] [address] Saul Pérez DPM [address] [facility] 5 [place] [address] 04/21/2025 10:30 AM EDT Procedure Visit [facility]F MONTI[facility] [address] [facility] [address] [place] [address] Yulissa Stanford, DO [address], [place] [id number] 05/27/2025 2:40 PM EDT Office Visit JOSEF AVILA [address] [place] [address] Katy Floyd NP [address] [place] [address] 06/11/2025 1:00 PM EDT Office Visit [facility] [address] [place] [address] Darlene De Souza NP [address] [place] [phone] documented as of this encounter Procedures Procedure Name Priority Date/Time Associated Diagnosis Comments RT PULMONARY FUNCTION TEST 06/07/2024 9:01 AM EDT documented in this encounter Results * RT PULMONARY FUNCTION TEST (06/07/2024 9:01 AM EDT) Anatomical Region Laterality Modality Other 06/07/2024 9:01 AM EDT Narrative 06/18/2024 7:35 AM EDT The [address] [address] Respiratory Report Signed Patient: SPENCER DAWN MR#: [id number] : 1950 Acct:[id number] Age/Sex: 74 / M ADM Date: 06/07/24 Loc: CARD Attending Dr: Shaikh Antonai Sam Ordering Physician: Shaikh Cecy Knight Date of Service: 06/07/24 Procedure(s): RT pulmonary function test Accession Number(s): [id number] cc: The [facility] Test Date: 2024-06-07 Pat Name: SPENCER DAWN Department: Room: - Gender: Male Echo Vasc Tech: Erin Chowdary RRT : 1950 Requested By: [id number] Order Number: [id number] Reading MD: Chandler Mckee Interpretive Statements Pulmonary function testing was completed according to ATS criteria. Findings were considered accurate and reproducible. Both pre- and post-bronchodilator values utilized for spirometry. Spirometry (based on pre-bronchodilator values): -FEV1/FVC: Reduced @ 47% -FEV1: Moderately-severe reduction @ 51% -FVC: Reduced @ 79% -RMM26-82%: Reduced @ 27% -There is no significant bronchodilator response. Lung volumes by plethysmography (based on pre-bronchodilator values): -RV: Normal @ 112% -TLC: Normal @ 94% Diffusion capacity: -DLCO: Very severe reduction @ 31% when corrected for Hb 17.1g/dL Impressions: -Spirometry suggests moderately-severe obstruction without a bronchodilator response. Lung volumes are normal. There is a very severely reduced diffusion capacity. There is an elevated hemoglobin level suggestive of secondary polycythemia. Overall study is compatible with COPD/emphysema. Patient is at risk of ambulatory desaturations with such a low DLCO. Clinical correlation required. Electronically Signed On 06-18-2024 7:35:28 EDT by Chandlre Mckee Dictated By: Chandler Mckee D.O. Signed By: 06/18/24 0735 DD/ 0901 TD/TT: Senior Internal Auditor: Procedure Note Radiology, Radiologist, MD - 06/18/2024 [place] [address] Respiratory Report Signed Patient: SPENCER DAWN RMR#: [id number] : 1950cct:[id number] Age/Sex: 74 / MADM Date: 06/07/24 Loc: CARD Attending Dr: Shaikh Antonia Sam Ordering Physician: Shaikh Cecy Knight Date of Service: 06/07/24 Procedure(s): RT pulmonary function test Accession Number(s): [id number] cc: The [facility] Test Date: 2024-06-07 Pat Name: SPENCER DAWN Department: Room: - Gender: Male Echo Vasc Tech: Erin Chowdary RRT : 1950 Requested By: [id number] Order Number: [id number] Reading MD: Chandler Mckee Interpretive Statements Pulmonary function testing was completed according to ATS criteria.Findings were considered accurate and reproducible. Both pre- andpost-bronchodilator values utilized for spirometry. Spirometry (based on pre-bronchodilator values): -FEV1/FVC: Reduced @ 47% -FEV1: Moderately-severe reduction @ 51% -FVC: Reduced @ 79% -WXN94-15%: Reduced @ 27% -There is no significant bronchodilator response. Lung volumes by plethysmography (based on pre-bronchodilator values): -RV: Normal @ 112% -TLC: Normal @ 94% Diffusion capacity: -DLCO: Very severe reduction @ 31% when corrected for Hb 17.1g/dL Impressions: -Spirometry suggests moderately-severe obstruction without abronchodilator response. Lung volumes are normal. There is a very severely reduceddiffusion capacity. There is an elevated hemoglobin level suggestive of secondary polycythemia. Overall study is compatible with COPD/emphysema. Patientis at risk of ambulatory desaturations with such a low DLCO. Clinical correlation required. Electronically Signed On 06-18-2024 7:35:28 EDT by Chandler Mckee Dictated By: Chandler Mckee D.O. Signed By:06/18/24 0735 DD/ 0901 TD/TT: Senior Internal Auditor: us Shaikh Antonia [facility] Final Result documented in this encounter Visit Diagnoses Not on filedocumented in this encounter Additional Health Concerns Assessment Noted Time PHQ-9 Depression Total Score: 0 10/10/20 23 11:00 AM EST documented as of this encounter Care Teams Manager Of Program Relationship Specialty Start Date End Date Demetrius Dorado MD [address] [place] [address] PCP - General Family Medicine 06/05/24 Zainab Dempsey NP [address] [place] [address] Nurse Practitioner Family Medicine 06/05/24 documented as of this encounter
--- OUTSIDE RECORDS SUMMARY | 2025-03-25 08:42 | XMS_ITS | Encounter Summary ---
Author Organization [facility] Address [address] [facility] [place] [address] Care Team Providers Care Engineering Group Leader Name Role Phone Demetrius Dorado MD Primary Care Provider [phone] Zainab Dempsey NP Unavailable [phone] Encounter Details Date Type Department Care Team (Late st Contact Info) Description 10/14/2024 Clinisync Result Encounter [facility] External Department Unsolicited Provider, Generic External Data Social History Tobacco Use Types Packs/Day Years [...] on file documented as of this encounter Functional Status * Over the past 2 weeks, how often have you been bothered by any of the following problems? Question Answer Date of Assessment Author Little interest or pleasure in doing things Not at all 10/16/2024 9:00 AM Giulia Mayer MA Feeling down, depressed, or hopeless Not at all 10/16/2024 9:00 AM Giulia Mayer MA Patient Health Questionnaire -2 Score 0 10/16/2024 9:00 AM Giulia Mayer MA * Question Answer Date of Assessment Author Trouble falling or staying asleep, or sleeping too much Not at all 10/16/2024 9:00 AM Giulia Mayer MA Feeling tired or having georgette le energy Not at all 10/16/2024 9:00 AM Giulia Mayer MA Poor appetite or overeating Not at all 10/16/2024 9: 00 AM Giulia Mayer MA Feeling bad about yourself - or that you are a failure or have let yourself or your family down Not at all 10/16/2024 9:[address], [place] Trouble concentrating on thi ngs, such as reading the newspaper or watching television Not at all 10/16/2024 9:00 AM Giulia Mayer MA Moving or speaking so slowly that other people could have noticed? Or the opposite - being so fidgety or restless that you have been moving around a lot more than usual. Not at all 10/16/2024 9:00 AM Giulia Mayer MA Thoughts that you would be b rangel off or hurting yourself in some way Not at all 10/16/2024 9:00 AM Giulia Mayer MA Patient Health Questionnaire -9 Score 0 10/16/2024 9:00 AM Giulia Mayer MA documented as of this encounter Plan of Treatment Upcoming Encounters Date Type Department Care Team (Late st Contact Info) Description 04/03/2025 3:00 PM EDT Procedure Visit [facility] [address] [facility] 120 [place] [address] Saul Pérez DPM [address] [facility] 5 [place] [address] 04/21/2025 10:30 AM EDT Procedure Visit JOSEF MONTIEL 703 [facility] 353 [place] [address] Yulissa Stanford DO [address] [place] [address] 05/27/2025 2:40 PM EDT Office Visit JOSEF AVILA [address] [place] [address] Katy Floyd NP [address] [place], [place] 06/11/2025 1:00 PM EDT Office Visit [facility] [address] [place] [address] Darlene De Souza, BLANQUITA [address] [place] [phone] documented as of this encounter Procedures Procedure Name Priority Date/Time Associated Diagnosis Comments CT LUNG SCREENING LOW DOSE 10/14/2024 11:30 AM EST documented in this encounter Results * CT LUNG SCREENING LOW DOSE (10/14/2024 11:30 AM EST) Anatomical Region Laterality Modality Other 10/14/2024 11:3 0 AM EST Narrative 10/14/2024 11:32 AM EST [address] [address] [address] Scan Report Signed Patient: SPENCER DAWN MR#: [id number] : 1950 Acct:[id number] Age/Sex: 74 / M ADM Date: 10/11/24 Loc: CT Attending Dr: Darlene Christensen D.O. Ordering Physician: Darlene Christensen D.O. Date of Service: 10/11/24 Procedure(s): CT lung screening low-dose Accession Number(s): [id number] cc: ZAINAB DEMPSEY [address] [address] Patient Name: SPENCER DAWN MRN: [id number] date: 1950 Sex: M Assigned Patient Location: CT Current Patient Location: Accession/Order Number: [id number] Exam Date: 10/11/2024 10:05 Report Date: 10/14/2024 11:30 At the request of: DARLENE CHRISTENSEN Procedure: CT lung screening low-dose EXAMINATION: CT lung screening low-dose HISTORY: personal history of nicotine dependence Z87.891 COMPARISON: 06/13/2023 TECHNIQUE: Axial, Coronal, and Sagittal images were created without the administration of IV contrast material. Dose reduction techniques were achieved by using automated exposure control and/or adjustment of mA and/or kV according to patient size and/or use of iterative reconstruction technique. FINDINGS: LUNGS: Stable severe centrilobular emphysema with an upper lobe predominance. Mild stable bibasilar bronchiectasis. Scattered patchy infiltrates identified throughout both lung bases, atelectasis and/or scar is favored most significant in the medial aspect of the superior segment of the right lower lobe, axial image 67. There is been interval development of a new area of groundglass attenuation in the left upper lobe, axial image #64 measuring 2.4 cm in diameter with a second solid-appearing irregular nodule measuring 7.6 x 4.8 cm axial image 61 PLEURA: No mass, effusion, or pneumothorax. VASCULATURE: No abnormality. JOSE: No mass or pathologic adenopathy. MEDIASTINUM: Increased number of normal-sized lymph nodes CARDIAC: No enlargement or pericardial effusion CORONARY ARTERIES: Coronary calcifications are mild. AORTA: No aortic aneurysm. Mild calcific atherosclerosis CHEST WALL: No mass or axillary adenopathy BONES: No bone lesion or fracture. LIMITED ABDOMEN: Scattered hypodensities too small to characterize OTHER: Negative. CT/CT lung screening low-dose IMPRESSION: New left upper lobe solid nodule in the area of groundglass attenuation. 3 month follow-up recommended LUNG SCREENING: Lung-RADS Category 4A- Suspicious. Findings for which additional diagnostic testing and/ or tissue sampling is recommended. 3 month LDCT; PET/CT may be used when there is a >= 8 mm solid component. Electronically authenticated by: YANDY MALONEY Date: 10/14/2024 11:30 Dictated By: Yandy Maloney M.D. Signed By: 10/14/24 1132 DD/ 1130 TD/TT: Telecommunications Network Planner: Procedure Note Radiology, Radiologist, - 10/14/2024 [place] [address] CT Scan Report Signed Patient: SPENCER DAWN RMR#: [id number] : 1Acct:[id number] Age/Sex: 74 / MADM Date: 10/11/24 Loc: CT Attending Dr: Darlene Christensen D.O. Ordering Physician: Samsa,Darlene D.O. Date of Service: 10/11/24 Procedure(s): CT lung screening low-dose Accession Number(s): [id number] cc: ZAINAB DEMPSEY [address] [address] Patient Name: SPENCER DAWN MRN: [id number] date: 1950 Sex: M Assigned Patient Location: CT Current Patient Location: Accession/Order Number: [id number] Exam Date: 10/11/2024 10:05 Report Date: 10/14/2024 11:30 At the request of: DARLENE CHRISTENSEN Procedure: CT lung screening low-dose EXAMINATION: CT lung screening low-dose HISTORY: personal history of nicotine dependence Z87.891 COMPARISON: 06/13/2023 TECHNIQUE: Axial, Coronal, and Sagittal images were created without the administration of IV contrast material. Dose reduction techniques were achieved by using automated exposure control and/or adjustment of mA and/or kV according to patient size and/or use of iterative reconstruction technique. FINDINGS: LUNGS: Stable severe centrilobular emphysema with an upper lobepredominance. Mild stable bibasilar bronchiectasis. Scattered patchy infiltratesidentified throughout both lung bases, atelectasis and/or scar is favored most significant in the medial aspect of the superior segment of the right lower lobe,axial image 67. There is been interval development of a new area of groundglass attenuation in the left upper lobe, axial image #64 measuring 2.4 cm in diameter with a second solid-appearing irregular nodule measuring 7.6 x4.8 cm axial image 61 PLEURA: No mass, effusion, or pneumothorax. VASCULATURE: No abnormality. JOSE: No mass or pathologic adenopathy. MEDIASTINUM: Increased number of normal-sized lymph nodes CARDIAC: No enlargement or pericardial effusion CORONARY ARTERIES: Coronary calcifications are mild. AORTA: No aortic aneurysm. Mild calcific atherosclerosis CHEST WALL: No mass or axillary adenopathy BONES: No bone lesion or fracture. LIMITED ABDOMEN: Scattered hypodensities too small to characterize OTHER: Negative. CT/CT lung screening low-dose IMPRESSION: New left upper lobe solid nodule in the area of groundglass attenuation. 3 month follow-up recommended LUNG SCREENING: Lung-RADS Category 4A- Suspicious. Findings for which additional diagnostic testing and/ or tissue sampling is recommended. 3month LDCT; PET/CT may be used when there is a >= 8 mm solid component. Electronically authenticated by: YANDY MALONEY Date: 10/14/2024 11:30 Dictated By: Yandy Maloney M.D. Signed By:10/14/24 1132 DD/ 1130 TD/TT: Telecommunications Network Planner: Generic External Data Provider [facility] Final Result documented in this encounter Visit Diagnoses Not on filedocumented in this encounter Additional Health Concerns Assessment Noted Time PHQ-9 Depression Total Score: 0 10/10/20 23 11:00 AM EST documented as of this encounter Care Teams Engineering Group Leader Relationship Specialty Start Date End Date Demetrius Dorado MD [address] [place] [address] PCP - General Family Medicine 06/05/24 Zainab Dempsey NP [address] [place] [phone] Nurse Practitioner Family Medicine 06/05/24 documented as of this encounter
--- OUTSIDE RECORDS SUMMARY | 2025-03-25 08:42 | XMS_ITS | Clinical Summary ---
Author Organization [facility] Address [address] [place] [address] Care Team Providers Care Underwear Finisher Name Role Phone Shaikh MOIZ Knight Primary Care Provider [phone] Allergies No known active allergies Medications Medication Sig Dispensed Refills Start Date End Date Status albuterol 90 mcg/actuation inhaler INHALE 2 TABLETS BY MOUTH EVERY 4 HOURS NEEDED FOR SHORTNESS OF BREATH 12/12/2022 Active Trelegy Ellipta 200-62.5-25 mcg blister with device INHALE 1 PUFF BY MOUTH EVERYDAY 07/11/2022 Active Family History Medical History Relation Name Comments No Known Problems Father No Known Problems Mother Relation Name Status Comments Father Mother Social History Tobacco Use Types Packs/Day Years Used Date Smoking Tobacco: Former Cigarettes 1 50 0 10/1963 - 10/2013 Smokeless Tobacco: Never Tobacco Cessation:Counseling Given: Not Answered Alcohol Use Standard Drinks/Week Comments Not Currently 0 (1 standard drink = 0.6 oz pur e alcohol) [place] Safety & Environment Answer Date Rec orded Fear of Current or Ex-Partner Not on file Emotionally Abused Not on file 12/21/2023 Physically Abused Not on file 12/21/2023 Sexually Abused Not on file 12/21/2023 Physically or Sexually Abused Not on file Sex and Gender Information Value Date Recorded Sex Assigned at Not on file Gender Identity Not on file Sexual Orientation Not on file Last Filed Vital Signs Vital Sign Reading Time Taken Comments Blood Pressure 134/88 07/07/2023 2:31 PM EDT Pulse 90 07/07/2023 2:31 PM EDT Temperature - - Respiratory Rate - - Oxygen Saturation 92% 07/07/2023 2:31 PM EDT Inhaled Oxygen Concentration - - Weight 94.3 kg (208 lb) 07/07/2023 2:31 PM EDT Height 182.9 cm (6') 07/07/2023 2:31 PM EDT Body Mass Index 28.21 07/07/2023 2:31 PM EDT Plan of Treatment Health Maintenance Due Date Last Done Comments CT Colonography 1950 Colonoscopy 1950 Colorectal Cancer Screening 1950 FIT-DNA 1950 FIT 1950 FOBT 1950 Medicare Annual Wellness (AWV) 1950 Sigmoidoscopy 1950 Depression Screening 1963 Adult Tetanus 1973 Zoster Vaccines (1 of 2) 2001 Fall Risk Screening 01/13/2016 Pneumococcal Vaccine: 65+ Years (2 of 2 - PCV) 08/06/2021 08/06/2020 COVID-19 Vaccine ( - season) 2024 Influenza Vaccine (Season Ended) 2025 09/29/2023, 08/22/2023, 08/01/2022, Additional history exists HIB Vaccines Aged Out No longer eligi ble based on patient's age to complete this topic HPV Vaccines Aged Out No longer eligi ble based on patient's age to complete this topic IPV Vaccines Aged Out No longer eligi ble based on patient's age to complete this topic Meningococcal B Vaccine Aged Out No l onger eligible based on patient's age to complete this topic Meningococcal Vaccine Aged Out No desmond sanket eligible based on patient's age to complete this topic Rotavirus Vaccines Aged Out No longer eligible based on patient's age to complete this topic Care Teams Underwear Finisher Relationship Specialty Start Date End Date Fawwad, Roberts, MD [address] [place] [address] PCP - General Family Medicine 01/24/23
--- OUTSIDE RECORDS SUMMARY | 2025-03-25 08:42 | XMS_ITS | Referral Summary ---
Author Organization [facility] Address [address] [place] [address] Care Team Providers Care Ironer Hand Name Role Phone Shaikh MOIZ Knight Primary Care Provider [phone] Allergies No known active allergies Medications Medication Sig Dispensed Refills Start Date End Date Status albuterol 90 mcg/actuation inhaler INHALE 2 TABLETS BY MOUTH EVERY 4 HOURS NEEDED FOR SHORTNESS OF BREATH 12/12/2022 Active Trelegy Ellipta 200-62.5-25 mcg blister with device INHALE 1 PUFF BY MOUTH EVERYDAY 07/11/2022 Active Social History Tobacco Use Types Packs/Day Years Used Date Smoking Tobacco: Former Cigarettes 1 50 0 10/1963 - 10/2013 Smokeless Tobacco: Never Tobacco Cessation:Counseling Given: Not Answered Alcohol Use Standard Drinks/Week Comments Not Currently 0 (1 standard drink = 0.6 oz pur e alcohol) [place] Safety & Environment Answer Date Rec orded [...] 07/07/2023 2:31 PM EDT Plan of Treatment Not on file Care Teams Ironer Hand Relationship Specialty Start Date End Date Shaikh Knight MD [address] [place] [address] PCP - General Family Medicine 01/24/23
--- OUTSIDE RECORDS SUMMARY | 2025-03-25 08:42 | XMS_ITS | Clinical Summary ---
Author Organization [facility] Address [address] [place] [address] Care Team Providers Care Systems Design Engineer Name Role Phone Demetrius Dorado MD Primary Care Provider [phone] Zainab Dempsey NP Unavailable [phone] Allergies No known active allergies Medications Fluticasone-Ume clidin-Vilant (Trelegy Ellipta) 200-62.5-25 MCG/ACT aerosol powder Inhale 1 puff Daily Active albuterol HFA 90 mcg/act inhaler Inhale 2 puffs every 4 (four) hours if needed for wheezing Active cholecalciferol (Vitamin D-3) 125 MCG (5000 UT) capsuleIndicati ons:Vitamin D deficiency Take 1 capsule (125 mcg) by mouth Daily 30 capsule 2 02/27/2025 03/29/20 25 Active propranolol LA (Inderal LA) 60 MG 24 hr capsuleIndicati ons:Essential tremor Take 1 capsule (60 mg) by mouth Daily Do not crush, chew, or split. 30 capsule 2 03/05/2025 03/05/20 26 Active Active Problems Problem Noted Date Diagnosed Date Vitamin B12 deficiency 03/11/2025 Assessment & Plan (03/11/2025 2:14 PM EDT): Vit b12 supplement, is currently taking 500mcg daily, increase to 1000mcg daily Vitamin D deficiency 02/27/2025 Assessment & Plan (03/11/2025 2:14 PM EDT): Taking vit d3 daily Chronic respiratory failure with hypoxia 025 Assessment & Plan (01/06/2025 6:41 AM EDT): Per dr christensen Bronchiectasis, uncomplicated 01/06/2025 Assessment & Plan (01/06/2025 6:41 AM EDT): Follows with Dr Christensen Current med: albuterol and trelegy Recommend keeping UTD on flu and pneumonia and COVID vaccines Multiple pulmonary nodules 01/06/2025 Screening for prostate cancer 01/06/2025 Assessment & Plan (01/06/2025 6:43 AM EDT): Recommend yearly prostate cancer screening Myalgia 01/06/2025 Assessment & Plan (01/06/2025 2:22 PM EDT): Check labs Recommend increase hydration with water Tremor 01/06/2025 Assessment & Plan (03/11/2025 6:46 AM EDT): No family hx of parkinson's, was told some time ago had essential tremors Had labs, saw neurology and is started on propranolol at appt 03/05/25 Assessment & Plan (01/06/2025 2:23 PM EDT): No family hx of parkinson's Was told some time ago had essential tremors We discussed this, as well as other etiologies Will order some labs and refer to Neurology for evaluation Fu w in 8 weeks Impacted cerumen of both ears 07/08/2024 Assessment & Plan (03/11/2025 2:14 PM EDT): cleared Assessment & Plan (01/06/2025 2:23 PM EDT): Left canal cleared with currette Right canal mild amount removed, will likely need irrigation in future appt Subconjunctival hemorrhage of left eye 4 Assessment & Plan (04/01/2024 2:28 PM EDT): No visual changes. Conservative measures. Chronic kidney disease, stage 3a (HCC) 3 Assessment & Plan (03/11/2025 2:13 PM EDT): Continue to monitor, appears to be stable Assessment & Plan (07/08/2024 10:33 AM EDT): CKD 3, stable. Renal function stable. Avoid nephrotoxic agents. Assessment & Plan (04/24/2024 10:17 AM EDT): CKD 3, stable. Renal function stable. Avoid NSAIDS. Assessment & Plan (04/01/2024 2:26 PM EDT): CKD 3, stable. Renal function stable. Avoid NSAIDS. Assessment & Plan (10/10/2023 11:54 AM EST): CKD 3, stable. Check labs. Encounter for Medicare annual wellness exam 09/29 Assessment & Plan (10/10/2023 11:54 AM EST): Appears to be in mild COPD exacerbation. Called in Prednisone for the patient. Upto date on Colon cancer screening, Flu, Pneumonia vaccine. Reviewed medical, surgical and social hx. Reviewed medication list. COPD with emphysema 10/10/2023 Overview (07/08/2024): TRELEGY 200 SAMPLES GIVEN TODAY NC5K EXP 11/24 X 1 GK3X EXP 08/23 X 1 Assessment & Plan (01/06/2025 2:24 PM EDT): Continue with dr christensen Current meds: albuterol and trelegy #4 samples of trelegy 200: Lot: [id number], exp 03/24 Assessment & Plan (07/08/2024 10:31 AM EDT): Currently taking Trelegy daily Uses Albuterol PRN for rescue inhaler- states he needs roughly 2 times per week Uses supplemental oxygen 2L as needed. Follows closely with Dr. Christensen pulmonology; Next appointment this month 06/2024. Had PFT's and oxygen study done last month. Continue current regimen. Assessment & Plan (04/24/2024 10:17 AM EDT): Previously well controlled on Trelegy 200-62.5-25 mcg Reports increasing shortness of breath on exertion. Normal Lexiscan - 2022 Severe emphysema/scarring on CT scan 06/21 No recent PFTs - previous PFTs showed Mod-severe Obs lung disease. Repeat PFTs - patient finally agreeable. Patient had previously refused to see Pulm. He has an appointment with Pulm in May. Assessment & Plan (04/01/2024 2:25 PM EDT): Previously well controlled on Trelegy 200-62.5-25 mcg Reports increasing shortness of breath on exertion. Normal Lexiscan - 2022 Severe emphysema/scarring on CT scan 06/21 No recent PFTs - previous PFTs showed Mod-severe Obs lung disease. Patient had previously refused to see Pulm. He is asking for a referral to Pulm Assessment & Plan (03/06/2024 11:51 AM EDT): TRELEGY 200 QTY# 4 SAMPLES LOT# [id number] EXP# 04/23 Assessment & Plan (10/10/2023 11:53 AM EST): Usually well controlled and has not had a COPD exacerbation for a year now. On Trelegy for it. C/w same. COPD with exacerbation 10/10/2023 Assessment & Plan (10/10/2023 11:53 AM EST): Reports past 2 weeks, he has noticed cough, SOB, wheezing. It is better than before but he had to use quite a bit of Ventolin Appears to be in mild COPD exacerbation. Will call in PO prednisone for him Resolved Problems Problem Noted Date Diagnosed Date Resolved Date Other emphysema 10/10/2023 01/06/2025 Encounters Date Type Department Care Team Description 03/11/2025 1:40 PM EDT Office Visit [facility] [address] [place] [address] Darlene De Souza NP Tremor (Primary Dx); Impacted cerumen of both ears; Chronic kidney disease, stage 3a (HCC) ([facility]/HCC); Vitamin D deficiency; Vitamin B12 deficiency 03/11/2025 Bamboo flowsheet [facility] [address] [place] [phone] Darlene De Souza NP 03/05/2025 2:00 PM EDT Office Visit [facility] [address] [place] [address] Yulissa Stanford DO Essential tremor (Primary Dx); Idiopathic peripheral neuropathy; Numbness and tingling; Vitamin B12 deficiency; Tremor 03/05/2025 Bamboo flowsheet [facility] [place] [address] [place] [address] Yulissa Stanford DO 02/27/[address] [facility] [address] [place] [address] Darlene De Souza NP Vitamin D deficiency (Primary Dx) 02/27/2025 Clinisync Result Encounter [facility] External Department Unsolicited Darlene De Souza NP 01/23/2025 1:50 PM EDT Procedure Visit [facility] [address] [place] [phone] Saul Pérez DPM Pain due to onychomycosis of toenails of both feet (Primary Dx); Venous insufficiency 01/23/2025 Bamboo flowsheet [facility] [address] [place] [phone] Saul Pérez DPM 01/23/2025 Travel 01/08/2025 Clinisync Result Encounter [facility] External Department Unsolicited Provider, Generic External Data 01/06/2025 1:20 PM EDT Office Visit [facility] [address] [place] [phone] Darlene De Souza NP Screening for prostate cancer (Primary Dx); Centrilobular emphysema (CMS/HCC) ; Chronic respiratory failure with hypoxia (CMS/HCC) ; Chronic kidney disease, stage 3a (HCC) (CMS/HCC); Bronchiectasis, uncomplicated (CMS/HCC); Myalgia; Tremor; Impacted cerumen of both ears 01/06/2025 Bamboo flowsheet [facility] [address] [place] [address] Darlene De Souza NP from Last 3 Months Immunizations Immunization Administration Dates Next Due Influenza, High Dose Seasona l, Preservative Free 09/29/2023 Influenza, Seasonal, Quadriv alent, Adjuvanted 08/22/2023 Influenza, injectable, quadrivalent 08/05/2019 Influenza, injectable, quadr ivalent, preservative free 12/15/2016 Influenza, trivalent, adjuvanted 024,08/01/2022,08/09/2021,08/06 Pneumococcal Conjugate PCV 20 08/02/2024 Pneumococcal Polysaccharide PPSV23 08/06/2020 SARS-COV-2 (COVID-19) vaccin e, mRNA, spike protein, LNP, preservative free, 25 mcg/0.25 mL dose CVX 311 08/02/2024 Family History Medical History Relation Name Comments Hyperlipidemia Mother Hyperlipidemia Sister Relation Name Status Comments Father Mother Sister Social History Tobacco Use Types Packs/Day Years Used Date Smoking Tobacco: Former Cigarettes 1 50 Passive Smoke Exposure: Past Smokeless Tobacco: Never Tobacco Cessation:Counseling Given: Not Answered Alcohol Use Standard Drinks/Week Comments Never 0 [...] (211 lb) 03/11/2025 1:49 PM EDT Height 182.9 cm (6') 03/05/2025 1:46 PM EDT Body Mass Index 28.62 03/05/2025 1:46 PM EDT Plan of Treatment Upcoming Encounters Date Type Department Care Team (Late st Contact Info) Description 04/03/2025 3:00 PM EDT Procedure Visit [facility] [address] [facility] [address] [place] [phone] Saul Pérez DPM [address] [facility] [address] [place] [address] 04/21/2025 10:30 AM EDT Procedure Visit [facility] [address] [facility] [address] [place] [phone] Yulissa Stanford DO [address] [place] [address] 05/27/2025 2:40 PM EDT Office Visit [facility] [address] [place] [address] Katy Floyd NP [address] [place] 06/11/2025 1:00 PM EDT Office Visit [facility] [address] [place] [phone] Darlene De Souza NP [address] [place] [address] Health Maintenance Due Date Last Done Comments CT Colonography 1950 FIT-DNA 1950 FIT 1950 FOBT 1950 Sigmoidoscopy 1950 Medicare Annual Wellness (AWV) 10/16/2025 10/16/2024 , 10/10/2023 Colonoscopy 10/30/2027 10/30/2017 Colorectal Cancer Screening 10/30/2027 Influenza Vaccine Completed 08/02/2024, , 08/22/2023, Additional history exists Pneumococcal Vaccine: 65+ Years Completed 08/02/2024, 10/30/2021, 08/06/2020 Procedures Procedure Name Priority Date/Time Associated Diagnosis Comments VITAMIN B12 Routine 02/27/2025 10:27 AM EDT ALL THYROID STIM HORMONE Routine 02/27/2025 10:27 AM EDT ALL T3 FREE Routine 02/27/2025 10:27 AM EDT ALL MAGNESIUM Routine 02/27/2025 10:27 AM EDT [facility] CMP (CMP) (FOR REMOTE [facility] USE) Routine 02/27/2025 10:27 AM EDT ALL THYROXINE (T4) FREE Routine 02/27/2025 10:27 AM EDT [facility] VITAMIN D 25 [place] Routine 02/27/2025 1 0:27 AM EDT ALL CBC WITH AUTO DIFF Routine 02/27/2025 10:27 AM EDT [facility] MICROALB CREAT RATIO RANDOM Routine 02/27/2025 10:20 AM EDT [facility] UA (CLEAN/CATCH) MICROSCOPIC IF INDICATE Routine 02/27/2025 10:[address] CHEST WO CON 01/08/2025 6:07 PM EDT from Last 3 Months Results * (ABNORMAL) VITAMIN B12 (02/27/2025 10:27 AM EDT) VITAMIN B12 209(A) 232 - 1245 pg/mL TBH Comment: Performed at: - [facility] [id number] School Bus Operator: Sin Goss PhD, Phone: [phone] 02/27/2025 10:2 7 AM EDT 02/27/2025 10:28 AM EDT Narrative [facility] - 02/28/2025 5:07 AM EDT Darlene De Souza NP LAB BLOOD ORDERABLES Final Resu lt Performing Organization Address City/[facility]/ZIP Co de Phone Number [facility] * [facility] VITAMIN D 25 [place] (02/27/2025 10:27 AM EDT) VITAMIN D 17.0 ng/mL TB Comment: <20 ng/mL Vit D deficient 20-<30 ng/mL Vit D insufficient 30-100 ng/mL Vit D sufficient >100 ng/mL Potential Toxicity 02/27/2025 10:2 7 AM EDT 02/27/2025 10:28 AM EDT Narrative [facility] - 02/27/2025 12:41 PM EDT Darlene De Souza NP [facility] Final Result Performing Organization Address [facility] de Phone Number [facility] TB * (ABNORMAL) [facility] CMP (CMP) (FOR REMOTE [facility] USE) (02/27/2025 10:27 AM EDT) SODIUM 138 136 - 145 mmol/L TBH POTASSIUM 4.1 3.5 - 5.1 mmol/L TBH CHLORIDE 102 98 - 107 mmol/L TBH CARBON DIOXIDE 28.3 21.0 - 32.0 mmol/L TBH ANION GAP 11.8 TBH GLUCOSE 91 74 - 106 mg/dL TBH BLOOD UREA NITROGEN 27.0(H) 7.0 - 18.0 mg/dL TBH CREATININE 1.65(H) 0.70 - 1.30 mg/dL TBH TBH EGFR-AF GREENLANDIC 50(L) >=60 mL/min/1. 73m 2 TBH TBH EGFR-NON AF GREENLANDIC 41(L) >=60 mL/min/1. 73m 2 TBH BUN CREATININE RATIO 16.4 TBH CALCIUM 9.9 8.5 - 10.1 mg/dL TBH BILIRUBIN TOTAL 1.4(H) 0.2 - 1.0 mg/dL TBH ASPARTATE AMINO TRANSFERASE 20 15 - 37 U/L TBH ALANINE AMINOTRANSFERASE 31 16 - 63 U/L TBH ALKALINE PHOSPHATASE 83 46 - 116 U/L TBH TOTAL PROTEIN 7.0 6.4 - 8.2 g/dL TBH ALBUMIN LEVEL 3.8 3.4 - 5.0 g/dL TBH GLOBULIN 3.2 g/dL TBH ALBUMIN GLOBULIN RATIO 1.2 TBH 02/27/2025 10:2 7 AM EDT 02/27/2025 10:28 AM EDT Narrative [facility] - 02/27/2025 1:16 PM EDT Darlene De Souza NP CLINIS[facility]NC Final Result Performing Organization Address [facility] Co de Phone Number [facility] * ALL THYROXINE (T4) FREE (02/27/2025 10:27 AM EDT) FREE T4 1.11 0.76 - 1.46 ng/dL TB 02/27/2025 10:2 7 AM EDT 02/27/2025 10:28 AM EDT Narrative [facility] - 02/27/2025 12:41 PM EDT Darlene De Souza DRESSING MACHINE OPERATOR [facility] Final Result Performing Organization Address [facility] Co de Phone Number [facility] * ALL THYROID STIM HORMONE (02/27/2025 10:27 AM EDT) THYROID STIMULATING HORMONE 1.976 0.358 - 3.740 uIU/mL TB 02/27/2025 10:2 7 AM EDT 02/27/2025 10:28 AM EDT Narrative [facility] - 02/27/2025 1:16 PM EDT us Darlene De Souza DRESSING MACHINE OPERATOR [facility]IN[facility] Final Result Performing Organization Address [facility]/ZIP Co de Phone Number CLIN[facility]VA TB * ALL T3 FREE (02/27/2025 10:27 AM EDT) FREE T3 2.62 2.18 - 3.98 pg/mL TBH 02/27/2025 10:2 7 AM EDT 02/27/2025 10:28 AM EDT Narrative [facility] - 02/27/2025 1:16 PM EDT Darlene Nolvia DRESSING MACHINE OPERATOR [facility] Final Result [facility] TB * ALL MAGNESIUM (02/27/2025 10:27 AM EDT) Pathologist [facility] MAGNESIUM 2.0 1.8 - 2.4 mg/dL TBH 02/27/2025 10:2 7 AM EDT 02/27/2025 10:28 AM EDT Narrative CLIN[facility] - 02/27/2025 1:16 PM EDT Darlene Nolvia DRESSING MACHINE OPERATOR [facility]IN[facility] Final Result Performing Organization Address City/[facility] de Phone Number [facility]NC TB * (ABNORMAL) ALL CBC WITH AUTO DIFF (02/27/2025 10:27 AM EDT) [facility] TB WBC 7.4 4.0 - 11.0 10 3/uL TBH TB RBC 5.32 4.70 - 6.10 10 6/uL TBH TB HGB 17.1 14.0 - 18.0 g/dL TB TB HCT 50.2 42.0 - 54.0 % TBH TBH MCV 94.4(H) 80.0 - 94.0 fL TBH TBH MCH 32.1 25.9 - 34.0 pg TBH TB MCHC 34.1 29.9 - 35.2 g/dL TBH TB RDW 13.2 11.0 - 15.0 % TBH TBH PLT 169 150 - 450 10 3/uL TBH TBH MPV 9.0(L) 9.5 - 13.5 fL TBH NEUTROPHILS PERCENT AUTO 74.3 43.0 - 75.0 % TBH LYMPHOCYTES PERCENT AUTO 15.3(L) 20.5 - 60.0 % TBH MONOCYTES PERCENT AUTO 7.7 1.7 - 12.0 % TBH TBH EO % 1.7 0.9 - 7.0 % TBH BASOPHILS PERCENT AUTO 0.7 0.2 - 2.0 % TBH IMMATURE GRANULOCYTES PCT AUTO 0.3 0.0 - 0.5 % TBH NEUTROPHILS ABSOLUTE AUTO 5.5 1.4 - 6.5 10 3/uL TBH LYMPHOCYTES ABSOLUTE AUTO 1.1(L) 1.2 - 3.8 10 3/uL TBH MONOCYTES ABSOLUTE AUTO 0.6 0.3 - 0.8 10 3/uL TBH TBH EO # 0.1 0.0 - 0.7 10 3/uL TBH BASOPHILS ABSOLUTE AUTO 0.1 0.0 - 0.1 10 3/uL TBH IMMATURE GRANULOCYTES ABS AUTO 0.02 0.00 - 0.03 10 3/uL TBH 02/27/2025 10:2 7 AM EDT 02/27/2025 10:28 AM EDT Narrative [facility] - 02/27/2025 10:42 AM EDT us Darlene De Souza NP [facility] Final Result [facility] * [facility]H UA (CLEAN/CATCH) MICROSCOPIC IF INDICATE (02/27/2025 10:20 AM EDT) COLOR URINE LT. YELLOW YELLOW TBH CLARITY URINE CLEAR CLEAR TBH SPECIFIC GRAVITY URINE 1.020 1.005 - 1.025 TBH PH URINE 6.0 5.0 - 9.0 TBH PROTEIN URINE NEGATIVE NEG/TRACE mg/dL TBH GLUCOSE URINE UA NEGATIVE NEGATIVE mg/dL TBH BILIRUBIN URINE NEGATIVE NEGATIVE TBH KETONES URINE NEGATIVE NEGATIVE mg/dL TBH BLOOD URINE NEGATIVE NEGATIVE TBH NITRITE URINE NEGATIVE NEGATIVE TBH UROBILINOGEN URINE 0.2 0.2 - 1.0 EU/dL TBH LEUKOCYTE ESTERASE URINE NEGATIVE NEGATIVE TBH URINE MICROSCOPIC INDICATED NO TBH 02/27/2025 10:2 0 AM EDT 02/27/2025 10:28 AM EDT Narrative CLINISY[facility] - 02/27/2025 10:46 AM EDT us Darlene De Souza DRESSING MACHINE OPERATOR [facility] Final Result [facility] * TBH MICROALB CREAT RATIO RANDOM (02/27/2025 10:20 AM EDT) MICROALBUMIN URINE RANDOM 2.7 <=30.0 mg/dL TBH CREATININE URINE RANDOM 148.13 20.00 - 300.00 mg/dL TBH MICROALBUM CREATININE RATIO UR 18.2 0.0 - 29.9 mg/g TBH Comment: NO MICROALBUMINURIA 0-29 MG/G CLINICAL MICROALBUMINURIA 30-300 MG/G MACROALBUMINURIA >300 MG/G 02/27/2025 10:2 0 AM EDT 02/27/2025 10:28 AM EDT Narrative [facility] - 02/27/2025 11:04 AM EDT Darlene De Souza DRESSING MACHINE OPERATOR CLINIS[facility] Final Result Performing Organization Address [facility] Co de Phone Number [facility] * CT CHEST WO CON (01/08/2025 6:07 PM EDT) Anatomical Region Laterality Modality Other 01/08/2025 6:07 PM EDT Narrative 01/08/2025 6:10 PM EDT [address] [address] [address] Scan Report Signed Patient: SPENCER DAWN MR#: [id number] : 1950 Acct:[id number] Age/Sex: 74 / M ADM Date: 01/08/25 Loc: CT Attending Dr: Darlene Christensen D.O. Ordering Physician: Darlene Christensen D.O. Date of Service: 01/08/25 Procedure(s): CT chest wo con Accession Number(s): [id number] cc: ZAINAB DEMPSEY [address] [address] Patient Name: SPENCER DAWN MRN: [id number] date: 1950 Sex: M Assigned Patient Location: CT Current Patient Location: CT Accession/Order Number: [id number] Exam Date: 01/08/2025 18:00 Report Date: 01/08/2025 18:07 At the request of: DARLENE CHRISTENSEN DO Procedure: CT chest wo con CT Chest without contrast TECHNIQUE: Axial imaging with 2-D reconstruction. The CT exam was performed using one or more the following dose reduction techniques: Automated exposure control, adjustment of the MA and/or Kv according to patient size, or use of the iterative reconstruction technique. History: Multiple pulmonary nodules COMPARISON: 06/13/2023 THYROID: Unremarkable TRACHEA AND BRONCHI: Patent ESOPHAGUS: Unremarkable. HEART: Within normal limits PERICARDIAL EFFUSION: None CORONARY ARTERY CALCIFICATION: None MEDIASTINUM: Small mediastinal lymph nodes redemonstrated.. No pneumoperitoneum. No mediastinal hematoma. PULMONARY JOSE: Calcified hilar lymph nodes consistent with chronic granulomatous disease THORACIC AORTA atherosclerosis. No aneurysm. LUNG NODULE and redemonstration of 1 cm nodular consolidation anterior portion of the left upper lobe seen with image #40 and 41. LUNGS: Marked emphysematous changes redemonstrated. Redemonstration of chronic scarring medial portion of the right lower lobe in paraspinal region.. Additional the posterior basilar atelectasis/scarring. PLEURAL EFFUSION: None PNEUMOTHORAX: No pneumothorax seen. CHEST WALL: No abnormality AXILLA:Unremarkable BONY STRUCTURES thoracic spondylosis/hyperostosis. UPPER ABDOMEN: Several hepatic cysts. CT/CT chest wo con IMPRESSION: Similar marked emphysema and right lower lobe focal region of scarring. A similar basal atelectasis/scarring. Developing 1 cm nodularity in the anterior portion of the left upper lobe seen with image #40 and 41. May be consideration for inflammatory nodule. Follow-up assessment in 3-6 months recommended. Impression dictated by: Tonny Aguilar M.D.01/08/2025 6:07 PM Dictation Location: [place] [address] Electronically authenticated by: [id number] Y Date: 01/08/2025 18:07 Dictated By: Tonny Aguilar D.O. Signed By: 01/08/251809 DD/ 06 TD/TT: Roll Trucker: Procedure Note Radiology, Radiologist, - 01/08/[address] [address] [address] Scan Report Signed Patient: SPENCER DAWN RMR#: [id number] : 1950cct:[id number] Age/Sex: 74 / MADM Date: 01/08/25 Loc: CT Attending Dr: Darlene Christensen D.O. Ordering Physician: Darlene Christensen D.O. Date of Service: 01/08/25 Procedure(s): CT chest wo con Accession Number(s): [id number] cc: ZAINAB DEMPSEY [facility] [place] [id number] Patient Name: SPENCER DAWN MRN: [id number] date: 1950 Sex: M Assigned Patient Location: CT Current Patient Location: CT Accession/Order Number: [id number] Exam Date: 01/08/2025 18:00 Report Date: 01/08/2025 18:07 At the request of: DARLENE CHRISTENSEN DO Procedure: CT chest wo con CT Chest without contrast TECHNIQUE: Axial imaging with 2-D reconstruction. The CT exam wasperformed using one or more the following dose reduction techniques: Automatedexposure control, adjustment of the MA and/or Kv according to patient size, or useof the iterative reconstruction technique. History: Multiple pulmonary nodules COMPARISON: 06/13/2023 THYROID: Unremarkable TRACHEA AND BRONCHI: Patent ESOPHAGUS: Unremarkable. HEART: Within normal limits PERICARDIAL EFFUSION: None CORONARY ARTERY CALCIFICATION: None MEDIASTINUM: Small mediastinal lymph nodes redemonstrated.. No pneumoperitoneum. No mediastinal hematoma. PULMONARY JOSE: Calcified hilar lymph nodes consistent with chronic granulomatous disease THORACIC AORTA atherosclerosis. No aneurysm. LUNG NODULE and redemonstration of 1 cm nodular consolidation anteriorportion of the left upper lobe seen with image #40 and 41. LUNGS: Marked emphysematous changes redemonstrated. Redemonstration of chronic scarring medial portion of the right lower lobe in paraspinalregion.. Additional the posterior basilar atelectasis/scarring. PLEURAL EFFUSION: None PNEUMOTHORAX: No pneumothorax seen. CHEST WALL: No abnormality AXILLA:Unremarkable BONY STRUCTURES thoracic spondylosis/hyperostosis. UPPER ABDOMEN: Several hepatic cysts. CT/CT chest wo con IMPRESSION: Similar marked emphysema and right lower lobe focal region of scarring. A similar basal atelectasis/scarring. Developing 1 cmnodularity in the anterior portion of the left upper lobe seen with image #40 and 41. May be consideration for inflammatory nodule. Follow-up assessment in 3-6 months recommended. Impression dictated by: Tonny Aguilar M.D.01/08/2025 6:07 PM Dictation Location: [place] [address] Electronically authenticated by: [id number] Y Date: 8:07 Dictated By: Tonny Aguilar D.O. Signed By:01/08/251809 DD/ 06 TD/TT: Roll Trucker: Generic External Data Provider [facility] Final Result from Last 3 Months Insurance [employer] [place] Care Teams Systems Design Engineer Relationship Specialty Start Date End Date Demetrius Dorado MD [address] [place] [address] PCP - General Family Medicine 06/05/24 Zainab Dempsey NP [address] [place] [phone] Nurse Practitioner Family Medicine 06/05/24
--- OUTSIDE RECORDS SUMMARY | 2025-03-25 08:42 | XMS_ITS | Encounter Summary ---
Author Organization [facility] Address [address] [place] [address] Care Team Providers Care Pelt Salter Name Role Phone Demetrius Dorado MD Primary Care Provider Zainab Dempsey NP Unavailable [phone] Encounter Details Date Type Department Care Team (Late Contact Info) Description 03/11/2025 Bamboo flowsheet [facility] [address] [place] [address] Darlene De Souza NP [address] [place] [phone] Social History Tobacco Use Types Packs/Day Years [...] EDT Procedure Visit [facility] [address] [facility] [address] [place] [phone] Saul Pérez DPAdan [address] [facility] [address] [place] [address] 04/21/2025 10:30 AM EDT Procedure Visit [facility] [address] [address] [place] [phone] Yulissa Stanford DO [address] [place], [place] [id number] 05/27/2025 2:40 PM EDT Office Visit [facility] [place] [address] [place] [address] Katy Floyd NP [address] [place], [place] 06/11/2025 1:00 PM EDT Office Visit [facility] [address] [place] [address] Darlene De Souza NP [address] [place] [phone] documented as of this encounter Visit Diagnoses Not on filedocumented in this encounter Additional Health Concerns Assessment Noted Time PHQ-9 Depression Total Score: 0 10/16/20 24 9:00 AM EST documented as of this encounter Care Teams Pelt Salter Relationship Specialty Start Date End Date Demetrius Dorado MD [address] [place] [phone] PCP - General Family Medicine 06/05/24 Zainab Dempsey NP [address] [place] [phone] Nurse Practitioner Family Medicine 06/05/24 documented as of this encounter
[2025-03-26 15:08] LABS: Angiotensin-Converting Enzyme 46 U/L (14-82)
[2025-03-27 05:07] LABS: QuantiFERON-TB Gold Plus Negative (Negative)
== END 2025-03-25 08:37 | disposition home or self-care (01) ==
LOC: LAB 08:38
PROVIDERS: PCP Nurse Practitioner; Visit Provider Internal Medicine
DX: G60.9 Hereditary and idiopathic neuropathy, unspecified (principal); R91.8 Other nonspecific abnormal finding of lung field
CPT/HCPCS: 36415; 82164; 82746; 84155; 84165; 86480; 86606; 86612; 87385

== ENCOUNTER 2025-03-25 08:41 | Outpatient (OUT) | payer MEDICARE, OTHER, SELFPAY ==
[2025-03-26 17:08] LABS: Albumin 3.6 g/dL (2.9-4.4); Alpha-1-Globulin 0.3 g/dL (0.0-0.4); Alpha-2-Globulin 0.7 g/dL (0.4-1.0); Gamma Globulin 0.9 g/dL (0.4-1.8); Protein, Total 6.3 g/dL (6.0-8.5)
== END 2025-03-25 08:42 | disposition home or self-care (01) ==
LOC: LAB 08:43
PROVIDERS: PCP Nurse Practitioner; Visit Provider Psychiatry & Neurology Neurology
DX: G60.9 Hereditary and idiopathic neuropathy, unspecified (principal)
CPT/HCPCS: 36415; 82746; 84155; 84165

== ENCOUNTER 2025-04-04 14:17 | Outpatient (OUT) | payer MEDICARE, OTHER, SELFPAY ==
--- OUTSIDE RECORDS SUMMARY | 2024-10-16 03:44 | XMS_ITS ---
Author Organization [facility] [place] Address [address] [place] [address] Care Team Providers Care Crown Buffer Name Role Phone Darlene De Souza CNP Primary Care Provider Unavail Chandler Navarrete Unavailable [phone] REASON FOR VISIT LDCT Results Problems Problem Type SNOMED Code ICD Code Onset Dates Problem Status W/U Status Risk Notes Problem Multiple pulmonary nodules (R91.8) Active confirmed Encounters Encounter Location Date Provider Diagnosis Pulmonary Medicine [place] [address] [place] [address] 10/16/2024 Chandler Mckee Multiple pulmonary nodules R91.8 Assessments Encounter Date Diagnosis (ICD Code) Assessment Notes Treatment Notes Treatment Clinical Notes Section Notes 10/16/2024 Multiple pulmonary nodules (ICD-10 - R91.8) Plan Of Treatment Next Appt Details Provider Name:Chandler Mckee, 09/16/2025 01:00:00 PM, [address] [place], [address], Progress Notes * Spencer ARROYO RDOB:1950 (74 yo M)Acc No.[id number]:10/16/2024 Patient: Crispin SANDY Spencer Soria :1950 A ge:74 Y S ex:Male Address:[address], [address] Subjective: * Chief Complaints: * L DCT Results * Medical History: * Surgical History: * Hospitalization/Major Diagno stic Procedure: * Medications: Objective: * Vitals: * Physical Examination: Assessment: * Assessment: 1. M ultiple pulmonary nodules - R91.8 (Primary) Plan: * Treatment: * Procedure Codes: * true * Date: Generated for Laura catherine/Wally/Daniel on: 0 04/04/2025 02:19 PM EDT
--- OUTSIDE RECORDS SUMMARY | 2025-03-25 04:00 | XMS_ITS ---
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 Heater Helper Name Role Phone Darlene De Souza CNP Primary Care Provider Unavail able Chandler Mckee Unavailable [phone] Allergies No Known Allergies REASON FOR VISIT 6 mos F/U COPD/O2 Medications Medication SIG (Take, Route, Frequency, Duration) Notes Start Date End Date Status Trelegy Ellipta 200-62.5-25 MCG/ACT 1 puff Inhalation Once a day Active Propranolol HCl ER 60 MG Oral for 30 Days Active Vitamin D3 125 MCG (5000 UT) TAKE 1 CAPSULE (125 MCG) BY MOUTH DAILY Oral for 30 Days Active Vitamin B12 1000 MCG 1 tablet Orally Onc e a day for 30 day(s) 03/25/2025 Active Albuterol Sulfate HFA 108 (90 Base) MCG/ACT Inhalation for 17 Days Active Social History Tobacco Use: Social History Observation Description Date Details (start date - stop date) Former Smoker NA - NA Tobacco Control (Standard) Question Answer Notes Tobacco use: Former smoker How long has it been since y ou last smoked? Greater than 10 years Additional Findings: Tobacco non-user Ex -moderate cigarette smoker (10-19/day) Vital Signs Weight 215.0 lbs 03/25/2025 Height 72 in 03/25/2025 Blood pressure systolic 151 mm Hg 03/25/20 25 Blood pressure diastolic 94 mm Hg 025 Temperature 97.0 degrees Fahrenheit 03/25/20 25 Heart Rate 67 /min 03/25/2025 Respiratory Rate 20 /min 03/25/2025 BMI 29.16 kg/m2 03/25/2025 Oximetry 95 % 03/25/2025 RA Activity/Resting Encounters Encounter Location Date Provider Diagnosis [facility] [place] [address] [place] [address] 03/25/2025 Chandler Mckee Centrilobular emphys willard J43.2 ; Multiple pulmonary nodules R91.8 ; Chronic respiratory failure with hypoxia J96.11 ; Bronchiectasis J47.9 ; Secondary polycythemia D75.1 ; Calcified lymph nodes I89.8 ; History of tobacco abuse Z87.891 and buttermaker continuous churn (current) use of inhaled steroids Z79.51 Assessments Encounter Date Diagnosis (ICD Code) Assessment Notes Treatment Notes Treatment Clinical Notes Section Notes 03/25/2025 Centrilobular emphysema (ICD-10 - J43.2) He remains on Trelegy and states it is working okay for him for now. Has had 2 flares over the past year now. Will monitor for now. May need to look into Ohtuvayre if symptomatic next visit. Improving O2 compliance may also improve dyspnea. 03/25/2025 Multiple pulmonary nodules (ICD-10 - R91.8) As per HPI. CLOTILDE more solidified medial nodule and new inferior ~1cm area. Differential includes infection, inflammation, and neoplasm. Prior GGO resolved. Changes from 01/08/2025 compared to 10/11/2024, and was not present on 06/13/2023. Residua inflammation scarring down vs. new area? Utilizing a solitary pulmonary nodule risk calculator ([facility] Model), risk of malignancy of the nodule/largest nodule is 25.3%. Recommended continued monitoring of this nodule/new nodule with 3 month F/U CT chest - this will be due mid-March 2025. Recommended testing for fungal causes. [place] being [place] for [place] (prior to 2022), so will not check for coccidioides. Check JANNY, but doubt other rheum diseases developing at age 75. The risk of malignancy for the pulmonary nodule is between 5-50%. The patient is a candidate for Nodify Lung Nodule Risk Assessment with Nodify CDT (and reflex Nodify XL2 test if CDT is not positive). This can help better ascertain the risk of malignancy and assist with need for further testing vs. monitoring. Will contact patient with results, further plan of care dependent on results. 03/25/2025 Chronic respiratory failure with hypoxia (ICD-10 - J96.11) Lefk-cr-lxre encounter performed with the patient to document continued need for supplemental oxygen (O2). -Qualification testin06/12/2024 -Flow & directions: 2L/min with activity and @ HS -Patient voices adherence to recommended usage: Previously, he said he uses it with ambulation, but claims he was never told to use it @ HS. Today, he said he uses it pretty much only @ HS and rarely with ambulation... -Symptom control on O2: Can help improve dyspnea...if he actually wears it. -Counseled patient not begin, restart, or continue smoking, around the O2 due to risk of fire which could result in damage to the O2 tanks & lines, smoke inhalation and flame damage to the airway, significant patel, potential , property damage, and potential harm & to bystanders. Additionally, counseled it is not san to begin, restart, or continue smoking given the underlying pulmonary disease that led to the point of requiring O2. -Recommendations: His use completely flip-flopped from prior visit. Patient is non-compliant with use during activity/ambulatio n. Continued need is evidenced that his SpO2 on RA was 88%. Educated patient again that he is to use it when not awake and when not sitting/relaxing - he is to use it when active and while sleeping. Counseled patient that he is at risk of losing O2 unless he improves his compliance. 03/25/2025 Bronchiectasis (ICD-10 - J47.9) Right lower lobe bronchiectasis noted on prior CT 06/13/2022 and 02/22/2022. History of increased mucus production. Continue guaifenesin. 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 03/25/2025 Calcified lymph nodes (ICD-10 - I89.8) Incidental finding noted on chest CT. 03/25/2025 History of tobacco abuse (ICD-10 - Z87.891) 1ppd x 50 years, quit 2013. Patient was participating in LDCT program. His last chest CT was 06/13/2023. There were several abnormal areas noted on there, and I do not see any follow-up chest imaging ordered by his PCP. Is been over a year since the last imaging was done, so at this point, I suggested restarting the LDCT program. Patient voiced agreement. 03/25/2025 buttermaker continuous churn (current) use of inhaled steroids (ICD-10 - Z79.51) Patient was counseled to rinse & gargle with water after inhaled corticosteroid use. Plan Of Treatment Treatment Notes Assessment Notes Centrilobular emphysema He remains on Trelegy and states it is working okay for him for now. Has had 2 flares over the past year now. Will monitor for now. May need to look into Ohtuvayre if symptomatic next visit. Improving O2 compliance may also improve dyspnea. Multiple pulmonary nodules As per HPI. CLOTILDE more solidified medial nodule and new inferior ~1cm area. Differential includes infection, inflammation, and neoplasm. Prior GGO resolved. Changes from 01/08/2025 compared to 10/11/2024, and was not present on 06/13/2023. Residua inflammation scarring down vs. new area? Utilizing a solitary pulmonary nodule risk calculator ([facility] Model), risk of malignancy of the nodule/largest nodule is 25.3%. Recommended continued monitoring of this nodule/new nodule with 3 month F/U CT chest - this will be due mid-March 2025. Recommended testing for fungal causes. Denies being [place] for several years (prior to 2022), so will not check for coccidioides. Check JANNY, but doubt other rheum diseases developing at age 75. The risk of malignancy for the pulmonary nodule is between 5-50%. The patient is a candidate for Nodify Lung Nodule Risk Assessment with Nodify CDT (and reflex Nodify XL2 test if CDT is not positive). This can help better ascertain the risk of malignancy and assist with need for further testing vs. monitoring. Will contact patient with results, further plan of care dependent on results. Chronic respiratory failure with hypoxia Fyhy-ee-tkfy encounter performed with the patient to document continued need for supplemental oxygen (O2). -Qualification testin06/12/2024 -Flow & directions: 2L/min with activity and @ HS -Patient voices adherence to recommended usage: Previously, he said he uses it with ambulation, but claims he was never told to use it @ HS. Today, he said he uses it pretty much only @ HS and rarely with ambulation... -Symptom control on O2: Can help improve dyspnea...if he actually wears it. -Counseled patient not begin, restart, or continue smoking, around the O2 due to risk of fire which could result in damage to the O2 tanks & lines, smoke inhalation and flame damage to the airway, significant patel, potential , property damage, and potential harm & to bystanders. Additionally, counseled it is not san to begin, restart, or continue smoking given the underlying pulmonary disease that led to the point of requiring O2. -Recommendations: His use completely flip-flopped from prior visit. Patient is non-compliant with use during activity/ambulation. Continued need is evidenced that his SpO2 on RA was 88%. Educated patient again that he is to use it when not awake and when not sitting/relaxing - he is to use it when active and while sleeping. Counseled patient that he is at risk of losing O2 unless he improves his compliance. Bronchiectasis Right lower lobe bronchiectasis noted on prior CT 06/13/2022 and 02/22/2022. History of increased mucus production. Continue guaifenesin. Secondary polycythemia Hb 17.1g/dL on PFT 06/07/2024 Polycythemia secondary to chronic hypoxic respiratory failure associated with emphysema. Calcified lymph nodes Incidental finding noted on chest CT. History of tobacco abuse 1ppd x 50 years, quit 2013. Patient was participating in LDCT program. His last chest CT was 06/13/2023. There were several abnormal areas noted on there, and I do not see any follow-up chest imaging ordered by his PCP. Is been over a year since the last imaging was done, so at this point, I suggested restarting the LDCT program. Patient voiced agreement. prison (current) use of inhaled stero ids Patient was counseled to rinse & gargle with water after inhaled corticosteroid use. Pending Test Test Name Order Date JANNY (ANGIOTENSIN CONVERTING ENZYME) 02/28 ASPERGILLUS ABS (FLAVUS,FUMIGATUS, NIGER ) QUAL 03/25/2025 BLASTOMYCIS MYCELIAL AB, BLOOD HISTOPLASMA MYCELIAL AB, BLOOD TB GOLD PLUS, QUANTIFERON 03/25/2025 HISTOPLASMA ANTIGEN, URINE 03/25/2025 Future Test Test Name Order Date CT Chest w/o contrast 04/13/2025 Next Appt Details Follow Up: 6 Months, Reason: COPD, O2, nodules Provider Name:Chandler Mckee, 09/16/2025 01:00:00 PM, [address] [place], [address], Procedure Notes * Category Sub-Category Detail Notes PFT Data: 06/07/2024-FEV1/FV C: 47%-FEV1: 51%-FVC: 79%-SFK08-34%: 27%-Bronchodilator response: None-RV: 112%-T%-DLCO: 31%12/20/2017-FEV1/FVC: 43%-FEV1: 42%-FVC: 74%-WJM24-60%: 16%-Bronchodilator response: Positive-RV: 109%-T%-DLCO: 42% Alpha-1 Antitrypsin Screening Date: 06/04/2024 Genotype: MM Progress Notes * Spencer ARROYO RDOB:1950 (75 yo M)Acc No.[id number]:03/25/2025 Follow Up Patient: Crispin Spencer DELGADO R Provider: Moises Mckee DO :1950 A ge:75 Y S ex:Male Date:03/25/2025 Address:[address] Pcp:Darlene De Souza, [employer] Check In:07:52 AM ESTCheck O ut:08:34 AM EST Subjective: * Chief Complaints: * 6 mos F/U COPD/O2 * HPI: G eneral: Patient was last seen 09/24/2024. Ordered LDCT that was done 10/11/2014. It was compared to 06/13/2023 which noted in the CLOTILDE new 2.4cm GGO and 7.6CM (this is a typo, it's only 7.6mm - I personally reviewed the imaging) nodule. He stated he was getting over an excacerbation at that time, so a 3 month F/U CT chest was ordered for close evaluation. This repeat CT chest was done 01/08/2025, but for some inexplicable reason, radiologist compared it to the 06/13/2023 study, n wilmar 09/24/2024 study... It commented on a 1cm nodule in the CLOTILDE. I then personally compared the 06/13/2023, 09/24/2024, and 01/08/2025 imaging. The GGO has resolved. The 7.6mm area is slightly dumbell-shaped, with the medial portion slightly more solidified; there is also a new area inferior to that which is 1cm. Regarding breathing, he states he is doing well the past 2 weeks. Prior to that, he had another spell and was using his big machine at home. The big machine is his oxygen concentrator. He arrived today in the office without his O2 and SpO2 on RA was 88%. He uses it as needed when he is short of breath. He takes it with him, but leaves it in the car... Explained the O2 is to be used any time he is not sitting or resting. MA Intake Comments:. Patient presents for a follow-up for COPD. Patient wears 2L O2 at home.DME:[facility]. Patient does not have his oxygen with him today. Patient claims he wears his oxygen as needed. Patient complains of SOB & Cough. Patient is using Trelegy daily. Patient reports having to use his rescue inhaler more than usual. Patient is using the rescue inhaler once every other day. Patient complains of sinus issues today. Patient is under the care of [facility] Cardiology. * ROS: G eneral/Constitutional: Fever or sweats d enies. C hange of appetite d enies. C hills d enies. W eight Change d enies. H EENT: Dry mouth d enies. S ore throat d enies. O ral Ulcers d enies. P ost Nasal Drip D enies. C ongestion D enies. H oarseness?Denies. C ardiovascular: Tachycardia d enies. E janina D enies. C hest pain d enies. P alpitations d enies. R espiratory: Pleurisy D enies. D yspnea a dmits. C ough p roductive in the mornings. H emoptysis d enies. W heezing a dmits. G astrointestinal: Acid Reflux/GERD/Heartburn d enies. D ysphagia d enies. M usculoskeletal: Arthralgias/joint pain D enies. S kin: Easy bruising d enies. R amaury d enies. ? N eurologic: Seizures d enies. T remor r esting. H ematology: Abnormal Bleeding d enies. P sychiatric: Anxiety d enies. * Active Problem List D75.1 Secondary polycythem ia Modified On:09/24/2024 Status:confirmed J43.2 Centrilobular emphys willard Modified On:06/04/2024 Status:confirmed J47.9 Bronchiectasis Modified On:06/04/2024 Status:confirmed R91.8 Multiple pulmonary n odules Modified On:10/16/2024 Status:confirmed Z87.891 History of tobacco a buse Modified On:09/24/2024 Status:confirmed I89.8 Calcified lymph node s Modified On:06/04/2024 Status:confirmed J96.11 Chronic respiratory failure with hypoxia Modified On:06/04/2024 Status:confirmed Z79.51 prison (current) use of inhaled steroids Modified On:06/04/2024 Status:confirmed * Medical History: * Surgical History: v asectomy tonsillectomy * Hospitalization/Major Diagno stic Procedure: D enies Past Hospitalization * Family History: F ather: Meningitis, diagnosed with Unspecified essential hypertension. M other: diagnosed with Unspecified essential hypertension. * Social History: T obacco Use: T obacco Control (Standard) T obacco use: F ormer smoker H ow long has it been since you last smoked??Greater than 10 years A dditional Findings: Tobacco non-user E x-moderate cigarette smoker (10-19/day) Electronic Cigarette use C urrent user N o LM: Additional Tobacco Questions N umber of Years Pt Smoked: 5 0 N umber of Packs per Day: 1 When did you stop smokin10/2013. 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 D rugs/Alcohol: D rugs H ave you used drugs other than those for medical reasons in the past 12 months? N o D oes the Patient have a History of Drug Abuse in the Past? N o Caffeine I ntake: 2 -3 cups per day Coffee Do you drink alcohol?: Yes, Socially. Do you smoke marijuana?: Denies. * Medications: T akingAlbuterol Sulfate HFA 108 (90 Base) MCG/ACT Aerosol Solution Inhalation Propranolol HCl ER 60 MG Capsule Extended Release 24 Hour Oral Trelegy Ellipta(Nlkbidmwfyb-Vlrzolrzn-Ukmmxa) 200-62.5-25 MCG/ACT Aerosol Powder Breath Activated 1 puff Inhalation Once a day Vitamin B12 1000 MCG Tablet 1 tablet Orally Once a day Vitamin D3 125 MCG (5000 UT) Capsule TAKE 1 CAPSULE (125 MCG) BY MOUTH DAILY Oral Medication List reviewed and reconciled with the patientTaking Albuterol Sulfate HFA 108 (90 Base) MCG/ACT Aerosol Solution Inhalation Taking Propranolol HCl ER 60 MG Capsule Extended Release 24 Hour Oral Taking Trelegy Ellipta(Kfalybydwot-Dvmjuybls-Iobqnc) 200-62.5-25 MCG/ACT Aerosol Powder Breath Activated 1 puff Inhalation Once a day Taking Vitamin B12 1000 MCG Tablet 1 tablet Orally Once a day Taking Vitamin D3 125 MCG (5000 UT) Capsule TAKE 1 CAPSULE (125 MCG) BY MOUTH DAILY Oral Medication List reviewed and reconciled with the patient * Allergies: N .K.D.A.no[Allergies Verified] Objective: * Vitals: W t:215.0lbs, Ht: 72 in, BP:sittin/94mm Hg, Temp:Forehead:97.0F, HR: 73 /min,67/min, RR:20/min, BMI:29.16Index, Oxygen sat %: Room Air:88 %,Room Air:95%, Ht-cm: 182.88 cm, Wt-k.52 kg. RA Activity/Resting. * Examination: E xam: GENERAL APPEARANCE: A ppears stated age. Skin N ot cyanotic. Mouth P ink and moist. Oropharynx M allampati Class III. Trachea M idline. Chest N ormal. Respiratory Normal M ovements, E ffort N ormal. Auscultation B reath sounds are diminished but clear to auscultation. Cardiac R egular rate and rhythm. Gastrointestinal N ormal. Vascular N o edema. Musculoskeletal N ormal posture. Neurological M ild tremor. Psychiatric A lert and oriented x3. Mentation/Cognition N ormal. Assessment: * Assessment: 1. C entrilobular emphysema - J43.2 (Primary) 2 . M ultiple pulmonary nodules - R91.8 3 . C hronic respiratory failure with hypoxia - J96.11 ?4. B ronchiectasis - J47.9 5 . S econdary polycythemia - D75.1 6 . C alcified lymph nodes - I89.8 7 . H istory of tobacco abuse - Z87.891 8 . L sera term (current) use of inhaled steroids - Z79.51 Plan: * Treatment: 2. M ultiple pulmonary nodules L AB: JANNY (ANGIOTENSIN CONVERTING ENZYME) L AB: ASPERGILLUS ABS (FLAVUS,FUMIGATUS, NIGER) QUAL L AB: BLASTOMYCIS MYCELIAL AB, BLOOD L AB: HISTOPLASMA MYCELIAL AB, BLOOD L AB: TB GOLD PLUS, QUANTIFERON L AB: HISTOPLASMA ANTIGEN, URINE I maging: CT Chest w/o contrast (Ordered for 04/13/2025) Notes: As per HPI. CLOTILDE more solidified medial nodule and new inferior ~1cm area. Differential includes infection, inflammation, and neoplasm. Prior GGO resolved. Changes from 01/08/2025 compared to 10/11/2024, and was not present on 06/13/2023. Residua inflammation scarring down vs. new area? Utilizing a solitary pulmonary nodule risk calculator ([facility] Model), risk of malignancy of the nodule/largest nodule is 25.3%. Recommended continued monitoring of this nodule/new nodule with 3 month F/U CT chest - this will bedue mid-March 2025. Recommended testing for fungal causes. [place] (prior to 2022), so will not check for coccidioides. Check JANNY, but doubt other rheum diseases developing at age 75. The risk of malignancy for the pulmonary nodule is between 5-50%. The patient is a candidate for Nodify Lung Nodule Risk Assessment with Nodify CDT (and reflex Nodify XL2 test if CDT is not positive). This can help better ascertain the risk of malignancy and assist with need for further testing vs.monitoring. Will contact patient with results, further plan of care dependent on results.?? 3.?Chronic respiratory failure with hypoxia? Notes: Kwpy-qj-auam encounter performed with the patient to document continued need for supplemental oxygen (O2). -Qualification testin06/12/2024 -Flow & directions: 2L/min with activity and @ HS -Patient voices adherence to recommended usage: Previously, he said he uses it with ambulation, butclaims he was never told to use it @ HS. Today, he said he uses it pretty much only @ HS and rarelywith ambulation... -Symptom control on O2: Can help improve dyspnea...if he actually wears it. -Counseled patient not begin, restart, or continue smoking, around the O2 due to risk of fire whichcould result in damage to the O2 tanks & lines, smoke inhalation and flame damage to the airway, significant patel, potential , property damage, and potential harm & to bystanders.Additionally, counseled it is not san to begin, restart, or continue smoking given the underlying pulmonary disease that led to the point of requiring O2. -Recommendations: His use completely flip-flopped from prior visit. Patient is non-compliant with use during activity/ambulation. Continued need is evidenced that his SpO2 on RA was 88%. Educated patient again that he is to use it when not awake and when not sitting/relaxing - he is to use it when active and while sleeping. Counseled patient that he is at risk of losing O2 unless he improves his compliance.??4.?Bronchiectasis? Notes: Right lower lobe bronchiectasis noted on prior CT 06/13/2022 and 02/22/2022. History of increased mucus production. Continue guaifenesin. ??5.?Secondary polycythemia? Notes: Hb 17.1g/dL on PFT 06/07/2024 Polycythemia secondary to chronic hypoxic respiratory failure associated with emphysema.??6.?Calcified lymph nodes? Notes: Incidental finding noted on chest CT.??7.?History of tobacco abuse? Notes: 1ppd x 50 years, quit 2013. Patient was participating in LDCT program. His last chest CT was 06/13/2023. There were several abnormal areas noted on there, and I do not see any follow-up chest imaging ordered by his PCP. Is been over a year since the last imaging was done, so at this point, I suggested restarting the LDCT program. Patient voiced agreement.??8.?buttermaker continuous churn (current) use of inhaled steroids? Notes: Patient was counseled to rinse & gargle with water after inhaled corticosteroid use.?? * Procedures: A lpha-1 Antitrypsin: Screening Date: . Genotype: M M. P FT: Data: -FEV1/FVC: 47% -FEV1: 51% -FVC: 79% -RPB76-69%: 27% -Bronchodilator response: None -RV: 112% -T% -DLCO: 31% 12/20/2017 -FEV1/FVC: 43% -FEV1: 42% -FVC: 74% -JWL03-62%: 16% -Bronchodilator response: Positive -RV: 109% -T% -DLCO: 42%. * Procedure Codes: * Preventive Medicine: COVID Vaccination: H as patient had COVID Vaccination? COVID Vaccination Y es 08/02/2024 Immunization Status: P neumovacc P revnar 20- 08/02/2024. I nfluenza 1 . Screenings/Counseling: F ALL RISK SCREENING Fall Risk Assessment: N o falls in the past year Are you afraid of falling? N o T OBACCO ACTION PLAN Patient counselled on the dangers of tobacco use and urged to quit. 0 03/25/2025 Former Education on smoking effects provided?03/25/2025 Former B MA ACTION PLAN Above Normal BMI Follow-up D ietary management education, guidance, and counseling * Disposition & Communication: A ttestation: Over 40 minutes spent on this patient today, including having to personally compare 3 CT chest studies because radiologist failed to do so. Ordered multiple labs and F/U CT chest. Assessed COPD and O2, re-educated patient on O2 compliance. * Follow Up: 6 Months (Reason: COPD, O2, nodules) * * Sign off status: Completed Visit Status: C HK (Check Out) true * Provider: Moises Mckee DO Date: 0 03/25/2025 Generated for Laura catherine/Wally/eTransmitting on: 0 04/04/2025 02:19 PM EDT History and Physical Notes * HPI (History of Present Illness) Category Sub-Category Detail Notes Category Not es General Patient present s for a follow-up for COPD. Patient wears 2L O2 at home.DME:[facility]. Patient does not have his oxygen with him today. Patient claims he wears his oxygen as needed. Patient complains of SOB & Cough. Patient is using Trelegy daily. Patient reports having to use his rescue inhaler more than usual. Patient is using the rescue inhaler once every other day. Patient complains of sinus issues today. Patient is under the care of [facility] Cardiology. Examination Category Sub-Category Detail Notes Category Not es Exam GENERAL APPEARANCE: Appears stated age Skin Not cyanotic Mouth [place] and moist Trachea Midline Chest Normal Respiratory Normal Movements, Ef fort Normal Auscultation Breath sounds are di minished but clear to auscultation Cardiac Regular rate and rhy thm Gastrointestinal Normal Vascular No edema Musculoskeletal Normal posture Neurological Mild tremor Psychiatric Alert and oriented x 3 Mentation/Cognition Normal Oropharynx Mallampati Class III
--- OUTSIDE RECORDS SUMMARY | 2025-04-02 10:59 | XMS_ITS ---
Author Organization [facility] [place] Address [address] [place] [address] Care Team Providers Care Trouble Shooting Mechanic Name Role Phone Darlene De Souza CNP Primary Care Provider Unavail Chandler Navarrete Unavailable [phone] REASON FOR VISIT Lab results Encounters Encounter Location Date Provider Diagnosis Pulmonary Medicine [facility] [address] [place] [address] 04/02/2025 Chandlerlisy Arias Plan Of Treatment Next Appt Details Provider Name:Chandler Hugo, 09/16/2025 01:00:00 PM, [address] [place], [address], Progress Notes * Spencer ARROYO RDOB:1950 (75 yo M)Acc No.[id number]:04/02/2025 Patient: Crispin Spencer DELGADO :1950 A ge:75 Y S ex:Male Address:[address], [address] * true * Date: Generated for Printi ng/Faxing/eTransmitting on: 0 04/04/2025 02:19 PM EDT
--- OUTSIDE RECORDS SUMMARY | 2025-04-04 14:19 | XMS_ITS | Patient Health Record ---
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 Name Role Phone Darlene De Souza CNP Primary Care Provider Unavail able Darlene Christensen Unavailable [phone] Allergies No Known Allergies Results Component Value Reference Range Notes CT Chest Low Dose for Screen ing* Reviewed date:10/14/2024 11:41:00 AM Interpretation: Performing Lab: Notes/Report: CT lung screening low-dose Reviewed date:10/16/2024 07:48:02 AM Interpretation: Performing Lab: Notes/Report: Source Facility: [place] [address] CT Scan Report Signed Patient: SPENCER ARROYO MR#: [id number] : 1950 Acct:[id number] Age/Sex: 74 / M ADM Date: 10/11/24 Loc: CT Attending Dr: Darlene Christensen D.O. Ordering Physician: Darlene Christensen D.O. 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 Ordering Physician: Darlene Christensen D.O. Date of Service: 10/11/24 Procedure(s): CT nicole g screening low-dose Accession Number(s): [id number] cc: GERARDLINDA [place] [address] Patient Name: SPENCER ARROYO MRN: [facility]:[id number] date: 1950 Sex: M Assigned Patient Location: CT Current Patient Location: Accession/Order Numb er: [id number] Exam Date: 10:05 Report Date: 10/14/2024 11:30 At the [...] mA and/or kV according to patient size and/ or use of iterative reconstruction technique. FINDINGS: LUNGS: Stable severe centrilobular emphysema with an upper lobe predominance. Mild stable bibasila r bronchiectasis. Scattered patchy infiltrates identified throughout both lung bases, atelectasis and/or scar is favored most significant in the medial aspect of the superior segment of the right lower lobe, axial image 67. There is b een interval development of a new area of groundglass attenuation in the l eft upper lobe, axial image #64 measuring 2.4 cm in diameter with a seco nd solid-appearing irregular nodule measuring 7.6 x 4.8 cm axial image 61 PLEURA: No mass, effusion, or pneumothorax. VASCULATURE: No abnormality. JOSE: No mass or pathologic adenopathy. MEDIASTINUM: Increas ed number of normal-sized lymph nodes CARDIAC: No enlargem ent or pericardial effusion CORONARY ARTERIES: Coronary calcifications are mild. AORTA: No aortic aneurysm. Mild calcific atherosclerosis CHEST WALL: No mass or axillary adenopathy BONES: No bone lesio n or fracture. LIMITED ABDOMEN: Scattered hypodensities too small to characterize OTHER: Negative. C T/CT lung screening low-dose IMPRESSION: New left upper lobe solid nodule in the area of groundglass attenuation. 3 month follow-up recommended LUNG SCREENING: Lung-RADS Category 4A- Suspicious. Findings for which additional diagnosti c testing and/ or tissue sampling is recommended. 3 month LDCT; PET/CT may be used when there is a >= 8 mm solid component. Electronically authenticated by: YANDY MALONEY Date: 10/14/2024 11:30 Dictated By: Dejon Maloney M.D. Signed By: 10/14/24 1132 DD/ 1130 TD/TT: Boiler Control Room Operator: CT Chest w/o contrast Reviewed date:01/09/2025 07:56:31 AM Interpretation: Performing Lab: Notes/Report: QuantiFERON-TB Gold Plus Reviewed date:03/27/2025 07:32:26 AM Interpretation: Performing Lab: Notes/Report: [facility] , QuantiFERON Incubation . Incubation performed. Reference Range: . QuantiFERON-TB Gold Plus Negative Negative No response to M tuberculosis antigens detected. Infection with M tuberculosis is unlikely, but high risk individuals should be considered for additional testing (ATS/IDSA/CDC Clinical Practice Guidelines, 2017). The reference range is an Antigen minus Nil result of <0.35 IU/mL. Chemiluminescence immunoassay methodology Performed at: [facility] [address] [id number] Student Accounts Manager: Sin Goss PhD, Phone: [phone] QuantiFERON Criteria Comment . QuantiFERON-TB Gold Plus is a qualitative indirect test for M tuberculosis infection (including disease) and is intended for use in conjunction with risk assessment, radiography, and other medical and diagnostic evaluations. The QuantiFERON-TB Gold Plus result is determined by subtracting the Nil value from either TB antigen (Ag) value. The Mitogen tube serves as a control for the test. QuantiFERON TB1 Ag Value 0.04 . IU/mL QuantiFERON TB2 Ag Value 0.04 . IU/mL QuantiFERON Nil Value 0.04 . IU/mL QuantiFERON Mitogen Value 7.94 . IU/mL Performing Lab: see note [facility] Angiotensin-Converting Enzym e Reviewed date:03/26/2025 03:39:47 PM Interpretation: Performing Lab: Notes/Report: [facility] , Angiotensin-Converting Enzyme 46 14-82 U/L Performed at: - [facility] [id number] Student Accounts Manager: Sin Goss PhD, Phone: [phone] Performing Lab: see note LC - [facility] LB Histoplasma Gal'sebas Ag Ur Reviewed date:03/31/2025 10:19:42 AM Interpretation: Performing Lab: Notes/Report: URINE [facility] , Histoplasma Gal'sebas Ag Ur Negative <0.2 ng/mL Performed at: - [facility] [id number] Student Accounts Manager: Whit Weeks MD, Phone: [phone] Performing Lab: see note LC - [facility] LB CT chest wo con Reviewed date:01/28/2025 08:07:43 AM Interpretation: Performing Lab: Notes/Report: Source Facility: [place] [address] [place] [address] CT Scan Report Signed with Addenda Patient: SPENCER ARROYO MR#: [id number] : 1950 Acct:[id number] Age/Sex: 74 / M ADM Date: 01/08/25 Loc: CT Attending Dr: Darlene Christensen D.O. Ordering Physician: Darlene Christensen D.O. Date of Service: 01/08/25 Procedure(s): CT chest wo con Accession Number(s): [id number] cc: LINDA GERARD ADDENDUM The [place] [address] This is an addendum Reassessment with comparison examination 10/11/2024 nodular density in the left upper lobe similar in size and distribution demonstrated. This is stable compared to the 3 month follow-up examination. At this is considered a category 2 benign finding with twelve-month follow-up assessment recommended. Impression dictated by: Tonny Aguilar M.D.01/21/2025 3:21 PM Dictation Location: [facility]--23 Electronically authenticated by: [id number] Y Date: 01/21/2025 15:21 Patient Name: SPENCER ARROYO MRN: [facility]:[id number] date: 1950 Sex: M Assigned Patient Location: CT Current Patient Location: CT Accession/Order Number: [id number] Exam Date: 01/21/2025 15:11 Report Date: 01/21/2025 15:21 At the request of: DARLENE CHRISTENSEN DO Procedure: CT chest wo con The [place] [address] Patient Name: SPENCER ARROYO MRN: [id number] date: 1950 Sex: M Assigned Patient Location: CT Current Patient Location: CT Accession/Order Number: [id number] Exam Date: 01/08/2025 18:00 Report Date: 01/08/2025 [...] thoracic spondylosis/hyperostosis. UPPER ABDOMEN: Several hepatic cysts. Addendum Dictated By: Tonny Aguilar D.O. Addendum Signed By: 01/21/25 1 524 Addendum Cosigned By: DD/ TD/TT: / ADDENDUM CT/CT chest wo con IMPRESSION: Similar marked emphysema and right lower lobe focal region of scarring. A similar basal atelectasis/scarring. Developing 1 cm nodularity in the anterior portion of the left upper lobe seen with image #40 and 41. May be consideration for inflammatory nodule. Follow-up assessment in 3-6 months recommended. Impression dictated by: Tonny Aguilar M.D.01/08/2025 6:07 PM Dictation Location: [facility] Electronically authenticated by: [id number] Y Date: 01/08/2025 18:07 Addendum Dictated By: Tonny Aguilar D.O. Addendum Signed By: 01/21/25 524 Addendum Cosigned By: DD/ TD/TT: / [place] [id number] Patient Name: SPENCER ARROYO MRN: [id number] date: 1950 Sex: M Assigned Patient Location: CT Current Patient Location: CT Accession/Order Number: [id number] Exam Date: 01/08/2025 18:00 Report Date: 01/08/2025 [...] Tonny Aguilar M.D.01/08/2025 6:07 PM Dictation Location: [facility] Electronically authenticated by: [id number] Y Date: 01/08/2025 18:07 Dictated By: Tonny Aguilar D.O. Signed By: 01/08/251809 DD/ 06 TD/TT: Boiler Control Room Operator: [place] [address] CT Scan Report Signed with Marquis Patient: SPENCER ARROYO MR#: [id number] : 1950 Acct:[id number] Age/Sex: 74 / M ADM Date: 01/08/25 Loc: CT Attending Dr: Darlene Christensen D.O. Ordering Physician: Darlene Christensen D.O. Date of Service: 01/08/25 Procedure(s): CT [facility] [facility] wo con Accession Number(s): [id number] cc: LINDA GERARD ADDENDUM The [address] [address] This is an addendum Reassessment with comparison examination 10/11/2024 nodular density in the left upper lobe leslie lar in size and distribution demonstrated. This is stable compared to the 3 mo nth follow-up examination. At this is considered a category 2 benign finding with twelve-month follow-up assessment recommended. Impression dictated by: Tonny Aguilar M.D.01/21/2025 3:21 PM Dictation Location: [place] [address] Electronically authenticated by: [id number] Y Date: 01/21/2025 15:21 Patient Name: SPENCER ARROYO MRN: [id number] date: 1950 Sex: M Assigned Patient Location: CT Current Patient Location: CT Accession/Order Numb er: [id number] Exam Date: 01/21/2025 15:11 Report Date: 01/21/2025 15:21 At the request of: DARLENE CHRISTENSEN DO Procedure: CT chest wo con The [place] [address] Patient Name: SPENCER ARROYO MRN: [id number] date: 1950 Sex: M Assigned Patient Location: CT Current Patient Location: CT Accession/Order Numb er: [id number] Exam Date: 01/08/2025 18:00 Report Date: 01/08/2025 18:07 At the request of: DARLENE CHRISTENSEN DO Procedure: CT chest wo con CT Chest without contrast TECHNIQUE: Axial andrea ging with 2-D reconstruction. The CT exam was performed using one or more th e following dose reduction techniques: Automated exposure control, adjustment of the MA and/or Kv according to patient size, or use of the iterative reconstruction technique. History: Multiple pulmonary nodules COMPARISON: 06/13/2023 THYROID: Unremarkable TRACHEA AND BRONCHI: Patent ESOPHAGUS: Unremarkable. HEART: Within normal limits PERICARDIAL EFFUSION : None CORONARY ARTERY CALCIFICATION: None MEDIASTINUM: Small mediastinal lymph nodes redemonstrated.. No pneumoperitoneum. No mediastinal hematoma. PULMONARY JOSE: Calcified hilar lymph nodes consistent with chronic granulomatous disease THORACIC AORTA atherosclerosis. No aneurysm. LUNG NODULE and redemonstration of 1 cm nodular consolidation anterior portion of the left upper lo be seen with image #40 and 41. LUNGS: Marked emphysematous changes redemonstrated. Redemonstration of chronic scarring med ial portion of the right lower lobe in paraspinal region.. Additional the poste rior basilar atelectasis/scarring. PLEURAL EFFUSION: None PNEUMOTHORAX: No pneumothorax seen. CHEST WALL: No abnormality AXILLA:Unremarkable BONY STRUCTURES thor acic spondylosis/hyperostosis . UPPER ABDOMEN: Sever al hepatic cysts. Addendum Dictated By : Tonny Aguilar D.O. Addendum Signed By: 01/21/25 524 Addendum Cosigned By: DD/ TD/TT: / ADDENDUM C T/CT chest wo con IMPRESSION: Similar marked emphysema and right lower lobe focal region of scarring. A similar basal atelectasis/scarring. Developing 1 cm nodularity in the anterior port ion of the left upper lobe seen with image #40 and 41. May be consideration for inflammatory nodule. Follow-up assessment in 3-6 months recommended. Impression dictated by: Tonny Aguilar M.D.01/08/2025 6:07 PM Dictation Location: [place] [address] Electronically authenticated by: [id number] Y Date: 01/08/2025 18:07 Addendum Dictated By : Tonny Aguilar D.O. Addendum Signed By: 01/21/25 1 524 Addendum Cosigned By: DD/ TD/TT: / [place] [id number] Patient Name: SPENCER ARROYO MRN: [id number] date: 1950 Sex: M Assigned Patient Location: CT Current Patient Location: CT Accession/Order Numb er: [id number] Exam Date: 01/08/2025 18:00 Report Date: 01/08/2025 18:07 At the request of: DARLENE CHRISTENSEN DO Procedure: CT chest wo con CT Chest without contrast TECHNIQUE: Axial andrea ging with 2-D reconstruction. The CT exam was performed using one or more th e following dose reduction techniques: Automated exposure control, adjustment of the MA and/or Kv according to patient size, or use of the iterative reconstruction technique. History: Multiple pulmonary nodules COMPARISON: 06/13/2023 THYROID: Unremarkable TRACHEA AND BRONCHI: Patent ESOPHAGUS: Unremarkable. HEART: Within normal limits PERICARDIAL EFFUSION : None CORONARY ARTERY CALCIFICATION: None MEDIASTINUM: Small mediastinal lymph nodes redemonstrated.. No pneumoperitoneum. No mediastinal hematoma. PULMONARY JOSE: Calcified hilar lymph nodes consistent with chronic granulomatous disease THORACIC AORTA atherosclerosis. No aneurysm. LUNG NODULE and redemonstration of 1 cm nodular consolidation anterior portion of the left upper lo be seen with image #40 and 41. LUNGS: Marked emphysematous changes redemonstrated. Redemonstration of chronic scarring med ial portion of the right lower lobe in paraspinal region.. Additional the poste rior basilar atelectasis/scarring. PLEURAL EFFUSION: None PNEUMOTHORAX: No pneumothorax seen. CHEST WALL: No abnormality AXILLA:Unremarkable BONY STRUCTURES thor acic spondylosis/hyperostosis . UPPER ABDOMEN: Sever al hepatic cysts. C T/CT chest wo con IMPRESSION: Similar marked emphysema and right lower lobe focal region of scarring. A similar basal atelectasis/scarring. Developing 1 cm nodularity in the anterior port ion of the left upper lobe seen with image #40 and 41. May be consideration for inflammatory nodule. Follow-up assessment in 3-6 months recommended. Impression dictated by: Tonny Aguilar M.D.01/08/2025 6:07 PM Dictation Location: [employer] Electronically authenticated by: [id number] Y Date: 01/08/2025 18:07 Dictated By: Tonny Aguilar D.O. Signed By: 01/08/251809 DD/ 06 TD/TT: Boiler Control Room Operator: [id number] SCREENIN G SWAB Reviewed date:06/13/2024 07:47:35 AM Interpretation: Performing Lab: Notes/Report: Aspergillus AbEmily DID Reviewed date:03/31/2025 10:19:38 AM Interpretation: Performing Lab: Notes/Report: [facility] , Aspergillus fumigatus Negative Neg:<1:1 Aspergillus flavus Negative Neg:<1:1 Aspergillus niger Negative Neg:<1:1 Performing Lab: see note - [facility] LB Blastomyces Emily Keith DID Reviewed date:03/31/2025 10:19:40 AM Interpretation: Performing Lab: Notes/Report: [facility] , Blastomyces AbsEmily, DID Negative Neg:<1:1 Performed at: - [facility] [address] [id number] Student Accounts Manager: Whit Weeks MD, Phone: [phone] Performing Lab: see note - [facility] LB Histoplasma capsulatum Abs. Reviewed date:03/31/2025 10:19:34 AM Interpretation: Performing Lab: Notes/Report: [facility] , Histoplasma Mycelial CF Ab. Negative Neg:<1:2 Histoplasma Yeast CF Ab Negative Neg:<1:2 Performed at: [address] [id number] Student Accounts Manager: Whit Weeks MD, Phone: [phone] Performing Lab: see note - [facility] LB Reason For Referral No Information Medications Medication SIG (Take, Route, Frequency, Duration) [...] Base) MCG/ACT Inhalation for 17 Days Active Immunizations Vaccine Route Administration Date Status Comme nts Flu, Fluad (15821) 65 yrs + High Dose Seasonal (3686-3114) Unknown 09/29/2023 Administered Flu, Fluad (22016) 65 yrs + Trivalent (9107-6796) Unknown 08/02/2024 Administered Flu, Fluad (98489) 65 yrs+, single-dose syringe (1350-9458) Unknown 08/22/2023 Administered Moderna COVID-19 Single Dose 25 mcg/0.25 mL Unknown 08/02/2024 Administered Pneumococcal (Pneumovax 23) Unknown 08/06/2020 Administ ered Pneumococcal (Prevnar 20) Unknown 08/02/2024 Administer ed SARS-COV-2 (COVID 19 Moderna - Booster 0.25mL) Unknown 01/19/2021 Administered Social History Tobacco Use: Social History Observation Description Date Details (start date - stop date) Former Smoker NA - NA Tobacco Control (Standard) Question Answer Notes Tobacco use: Former smoker How long has it been since y ou last smoked? Greater than 10 years Additional Findings: Tobacco non-user Ex -moderate cigarette smoker (10-19/day) Problems Problem Type SNOMED Code ICD Code Onset Dates Problem Status W/U Status Risk Notes Problem Secondary polycythemia (39910662) Secondary polycythemia (D75.1) Active confirmed Problem Centrilobular emphysema (11003576) Centrilobular emphysema (J43.2) Active confirmed Problem 103347474 Chronic respiratory failure with hypoxia (J96.11) Active confirmed Problem 496225830 [facility] (current) use of inhaled steroids (Z79.51) Active confirmed Problem Bronchiectasis (43986698) Bronchiectasis (J47.9) Active confirmed Problem Multiple pulmonary nodules (887099281) Multiple pulmonary nodules (R91.8) Active confirmed Problem Ex-tobacco user (finding) (041339439) History of tobacco abuse (Z87.891) Active confirmed Problem Calcified lymph nodes (422370988) Calcified lymph nodes (I89.8) Active confirmed Vital Signs Heart Rate 67 /min 03/25/2025 RA Activity/Res ting Temperature 97.0 degrees Fahrenheit 03/25/2025 RA A ctivity/Resting Respiratory Rate 20 /min 03/25/2025 RA Activity /Resting Blood pressure diastolic 94 mm Hg 03/25/2025 RA Activity/Resting Oximetry 95 % 03/25/2025 RA Activity/Res ting Height 72 in 03/25/2025 RA Activity/Res ting Blood pressure systolic 151 mm Hg 03/25/2025 RA A ctivity/Resting Weight 215.0 lbs 03/25/2025 RA Activity/Res ting BMI 29.16 kg/m2 03/25/2025 RA Activity/Res ting Procedures Procedure Date Ordered Date Performed Result Body Sit e Six minute walk 06/04/2024 06/04/2024 N/A Nocturnal Pulse OX 06/04/2024 06/12/2024 N/A Encounters Encounter Location Date Provider Diagnosis [facility] [place] [address] [place] [address] 04/04/2024 [facility] Pulmonary [facility] [address] [place] [address] 06/05/2024 [facility] Pulmonary [facility] [address] [place] [address] 06/18/2024 [facility] Pulmonary [facility] [address] [place] [facility] [place] [address] 06/25/2024 [facility] [address] [place] [facility] [place] [address] 07/08/2024 [facility] [address] [place] [facility] [place] [address] 09/11/2024 [facility] [address] [place] [place] [address] 10/09/2024 [facility] [address] [place] [facility] [place] [address] 10/16/2024 [facility] Multiple pulmonary nodules R91.8 [facility] [address] [place] [place] [address] 04/02/2025 [facility] [address] [place] [facility] [place] [address] 09/24/2024 [facility] Centrilobular emphys willard J43.2 ; Chronic respiratory failure with hypoxia J96.11 ; Bronchiectasis J47.9 ; Secondary polycythemia D75.1 ; Calcified lymph nodes I89.8 ; History of tobacco abuse Z87.891 ; Encounter for screening for malignant neoplasm of respiratory organs Z12.2 and 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 (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) use of inhaled steroids Z79.51 [facility] [address] [place] [facility] [place] [address] 03/25/2025 [facility] Centrilobular emphys willard J43.2 ; Multiple pulmonary nodules R91.8 ; Chronic respiratory failure with hypoxia J96.11 ; Bronchiectasis J47.9 ; Secondary polycythemia D75.1 ; Calcified lymph nodes I89.8 ; History of tobacco abuse Z87.891 and [facility] (current) use of inhaled steroids Z79.51 [facility] [address] [place] [facility] [place] [address] 06/04/2024 [facility] Centrilobular emphys willard J43.2 ; Chronic respiratory failure with hypoxia J96.11 ; Bronchiectasis J47.9 ; Calcified lymph nodes I89.8 and 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 (current) use of inhaled steroids Z79.51 Assessments Encounter Date Diagnosis (ICD Code) Assessment Notes Treatment Notes Treatment Clinical Notes Section Notes 09/24/2024 Centrilobular emphysema (ICD-10 - J43.2) Patient had testing done including PFT 06/07/2024. When compared to prior PFT from 12/20/2017, there is a slight improvement in FEV1 from 43% to 51%, with negligible change of lung volumes, though DLCO has declined from 42% to 31%. AAT is normal genotype MM. Patient currently has a mild flare as he describes it, but does not feel that it is severe. I do not feel that he requires any antibiotics or prednisone today.He does have new rhonchi on examination to which I recommended guaifenesin as needed. He was advised to avoid dextromethorphan-c ontaining products as we do not want to suppress the cough. At the end of the visit, the patient stated that he needsTrelegy samples as it is too expensive for him to afford (~ $400/month). I stated that I cannot give him samples for maintenance use. He was instructed to obtain his insurance formulary for me to review; with this, I can see what inhaler or combination of inhalers can be prescribed that may be cheaper for him (e.g. Breztri, Spiriva + Symbicort). Other than this, he denies needing any additional therapy. 09/24/2024 Chronic respiratory failure with hypoxia (ICD-10 - J96.11) Yoyc-rx-awxb encounter performed with the patient to document continued need for supplemental oxygen (O2). -Qualification testin06/12/2024 -Flow & directions: 2L/min with activity and @ HS -Patient voices adherence to recommended usage: He uses it with ambulation, but claims he was never told to use it @ HS -Symptom control on O2: Improvement of dyspnea -Counseled patient not begin, restart, or continue [...] to the point of requiring O2. -Recommendations: Patient was instructed to use O2 at bedtime-explained that breathing is more shallow when sleeping and therefore can have decreased air exchange. He voiced understanding and states that he will begin using it at bedtime. Regarding activity, he was 88% on baseline 2L/min on presentation. Last visit in May, he required up to 6L/min with use. If patient feels necessary, he is allowed to increase the flow to 3L/min with activity. 03/25/2025 Centrilobular emphysema (ICD-10 - J43.2) He [...] Utilizing a solitary pulmonary nodule risk calculator ([facility] Model), risk of malignancy of the nodule/largest [...] further plan of care dependent on results. 06/04/2024 Centrilobular emphysema (ICD-10 - J43.2) Severe diffuse evidence evidence changes noted on prior CT chest. Severe obstruction based on PFT and 2018. He is currently on Trelegy and is symptomatic with albuterol use 3-4 times a week. Discussed options with patient including O2, Ohtuvayre (ensifentine) - a novel PDE3/PDE4 inhibitor, and repeating PFT to see if he is a candidate for endobronchial valves and to qualify for pulmonary rehabilitation. He stated strongly that he did not want to repeat a PFT because I hate doing them . I explained that this is the only way to qualify for more advanced treatment options and sometimes testing needs to be recent to qualify (e.g. PFT within 1 year for pulmonary rehabilitation according to Medicare). The patient voiced he would like to be considered for oxygen therapy. He technically qualifies at this time, but I would prefer to have a 6-minute walk study to verify the correct flow needed. Thankfully, the respiratory therapist were able to perform a 6-minute walk study (separate from this visit) and he qualifies for O2. Will check for alpha-1 antitrypsin (AAT) deficiency. Pamphlet discussing AAT causes, testing, and potential treatment was provided to the patient. Appropriate follow-up is dependent on identified genotype. Patient will return in 1 month to see how he feels on O2. If he still is short of breath, he may consider doing the PFT. Continue Trelegy for now. 06/04/2024 Chronic respiratory failure with hypoxia (ICD-10 - J96.11) Cqux-vn-mtil encounter performed with the patient to document initial qualification and need for supplemental oxygen (O2). -O2 upon arrival on RA: 88% -6MW was done today (06/04/2024) - see official report --SpO2 @ rest on RA: 92% --SpO2 with activity on RA: 87% --SpO2 with activity, recovered to 90% on 6L/min O2 --Patient voiced improvement in dyspnea with supplemental O2 -Counseled patient not begin, restart, or continue [...] to the point of requiring O2. -Recommendations: 6L/min O2 with activity He will also need to be assessed for nocturnal oxygenation. 10/16/2024 Multiple pulmonary nodules (ICD-10 - R91.8) 06/04/2024 Bronchiectasis (ICD-10 - J47.9) Right lower lobe bronchiectasis noted on prior CT 06/13/2022 and 02/22/2022. This is most consistent with traction bronchiectasis associated with scarring associated with the illness in 2012. 03/25/2025 Chronic respiratory failure with hypoxia (ICD-10 - J96.11) Faar-bb-azip encounter performed with the patient to document [...] losing O2 unless he improves his compliance. 09/24/2024 Bronchiectasis (ICD-10 - J47.9) Right lower lobe bronchiectasis noted on prior CT 06/13/2022 and 02/22/2022. Patient is having more mucus production. He claims that this is a flare , but will need a watch it carefully to make sure that he is not developing more symptomatic bronchiectasis. For now, discussed the need to promote expectoration and will begin this with guaifenesin. 09/24/2024 Secondary polycythemia (ICD-10 - D75.1) Hb 17.1g/dL on PFT 06/07/2024 Elevated hemoglobin is consistent with polycythemia secondary to chronic hypoxic respiratory failure associated with emphysema. 03/25/2025 Bronchiectasis (ICD-10 - J47.9) Right lower lobe bronchiectasis noted on prior CT 06/13/2022 and 02/22/2022. History of increased mucus production. Continue guaifenesin. 06/04/2024 Calcified lymph nodes (ICD-10 - I89.8) Incidental finding noted on chest CT. 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 09/24/2024 Calcified lymph nodes (ICD-10 - I89.8) Incidental finding noted on chest CT. 09/24/2024 History of tobacco abuse (ICD-10 - Z87.891) [...] the LDCT program. Patient voiced agreement. 03/25/2025 Calcified lymph nodes (ICD-10 - I89.8) [...] restarting the LDCT program. Patient voiced agreement. 09/24/2024 Encounter for screening for malignant neoplasm of respiratory organs (ICD-10 - Z12.2) Low-dose CT (LDCT) was recommended for lung cancer screening. The patient meets criteria including age 50-77, a smoking history of at least 20 pack-years, is currently smoking or has ceased smoking within the past 15 years, and has no signs or symptoms of lung cancer. Shared decision making performed with the patient. After LDCT has been completed, will review report and/or imaging and provide appropriate recommendations for the patient, including additional follow up if needed. Patient was counseled on smoking cessation/continue d tobacco abstinence. 09/24/2024 [facility] (current) use of inhaled steroids (ICD-10 - Z79.51) Patient was counseled to rinse & gargle with water after inhaled corticosteroid use. 03/25/2025 [facility] (current) use of inhaled steroids (ICD-10 - Z79.51) Patient was counseled to rinse & gargle with water after inhaled corticosteroid use. Plan Of Treatment Pending Test Test Name Order Date JANNY (ANGIOTENSIN CONVERTING ENZYME) 02/28 ASPERGILLUS ABS (FLAVUS,FUMIGATUS, NIGER ) QUAL 03/25/2025 BLASTOMYCIS MYCELIAL AB, BLOOD HISTOPLASMA MYCELIAL AB, BLOOD 5 TB GOLD PLUS, QUANTIFERON 03/25/2025 HISTOPLASMA ANTIGEN, URINE 03/25/2025 Next Appt Details Provider Name:Darlene Christensen, 09/16/2025 01:00:00 PM, [address] [place], [address], Insurance Providers Payer Name Payer Address Payer Phone Subscriber Number Group Number Insured Name Patient Relationship to Insured Coverage Start Date Coverage End Date MEDICARE [place] [address] [phone] [id number] ArroyoSpencer cheung Self - patient is the insured 6 MMO MEDICARE SUPPLEMENT [address] [place] [address] [id number] Spencer Arroyo Self - patient is the insured Medical (General) History Medical History History ICD Code Centrilobular emphysema J43.2 Bronchiectasis J47.9 Calcified lymph nodes I89.8 Secondary polycythemia D75.1 History of tobacco abuse Z87.891 Multiple pulmonary nodules R91.8 Surgical History Surgery Date(Month/Year) vasectomy tonsillectomy
--- OUTSIDE RECORDS SUMMARY | 2025-04-04 14:19 | XMS_ITS | Clinical Summary ---
Author Organization [facility] Address [address] [place] [address] Care Team Providers Care Electric Refrigerator Servicer Name Role Phone Demetrius Dorado MD Primary Care Provider [phone] Zainab Dempsey NP Unavailable [phone] Allergies No known active allergies Medications Fluticasone-Ume clidin-Vilant (Trelegy Ellipta) 200-62.5-25 MCG/ACT aerosol powder Inhale 1 puff Daily Active propranolol LA (Inderal LA) 60 MG 24 hr capsuleIndicati ons:Essential tremor Take 1 capsule (60 mg) by mouth Daily Do not crush, chew, or split. 30 capsule 2 03/05/20 25 026 Active albuterol HFA 90 mcg/act inhalerIndicati ons:Pulmonary emphysema, unspecified emphysema type (CMS/HCC) Inhale 2 puffs every 6 (six) hours if needed for wheezing or shortness of breath 18 g 1 03/25/20 25 025 Active albuterol HFA 90 mcg/act inhaler Inhale 2 puffs every 4 (four) hours if needed for wheezing 025 Discontinued cholecalciferol (Vitamin D-3) 125 MCG (5000 UT) capsuleIndicati ons:Vitamin D deficiency Take 1 capsule (125 mcg) by mouth Daily 30 capsule 2 02/28/20 25 025 Active Problems Problem Noted Date Diagnosed Date [...] refer to Neurology for evaluation Fu w me in 8 weeks Impacted cerumen of both ears 07/08/2024 Assessment & Plan (03/11/2025 2:14 PM EDT): cleared Assessment & Plan (01/06/2025 2:23 PM EDT): Left canal cleared with currette Right canal mild amount removed, will likely need irrigation in future appt Subconjunctival hemorrhage of left eye Assessment & Plan (04/01/2024 2:28 PM EDT): No visual changes. Conservative measures. Chronic kidney disease, stage 3a (HCC) Assessment & Plan (03/11/2025 2:13 PM EDT): [...] Encounters Date Type Department Care Team Description 03/27/2025 Refill [facility] [address] [place] [phone] Yulissa Stanford DO Essential tremor 03/25/2025 Clinisync Result Encounter [facility] External Department Unsolicited Yulissa Stanford, DO 03/25/2025 Refill [facility] [address] [place] [phone] Darlene De Souza NP Pulmonary emphysema, unspecified emphysema type (CMS/HCC) (Primary Dx) 03/11/2025 1:40 PM EDT Office Visit [facility] [address] [place] [phone] Darlene De Souza NP Tremor (Primary Dx); Impacted cerumen of both ears; Chronic kidney disease, stage 3a (HCC) (CMS/HCC); Vitamin D deficiency; Vitamin B12 deficiency 03/11/2025 Bamboo flowsheet [facility] [address] [place] [phone] Darlene De Souza NP 03/05/2025 2:00 PM EDT Office Visit [facility] [address] [place], [place] [address], [place] [phone] Yulissa Stanford DO Essential tremor (Primary Dx); Idiopathic peripheral neuropathy; Numbness and tingling; Vitamin B12 deficiency; Tremor 03/05/2025 Bamboo flowsheet [facility] [address] [place], [place] [address], [place] [phone] Yulissa Stanford, 02/27/2025 Refill [facility] [address] [place] [phone] Darlene De Souza NP Vitamin D deficiency (Primary Dx) 02/27/2025 Clinisync Result Encounter [facility] External Department Unsolicited Darlene De Souza NP 01/23/2025 1:50 PM EDT Procedure Visit [facility] [address] [place] [phone] Saul Pérez, DPM Pain due to onychomycosis of toenails of both feet (Primary Dx); Venous insufficiency 01/23/2025 Bamboo flowsheet [facility] [address] [place] [address] Saul Pérez DPM 01/23/2025 Travel 01/08/2025 Clinisync Result Encounter [facility] External Department Unsolicited Provider, Generic External Data 01/06/2025 1:20 PM EDT Office Visit [facility] [address] [place] [address] Darlene De Souza NP Screening for prostate cancer (Primary Dx); Centrilobular emphysema (CMS/HCC) ; Chronic respiratory failure with hypoxia (CMS/HCC) ; Chronic kidney disease, stage 3a (HCC) (CMS/HCC); Bronchiectasis, uncomplicated (CMS/HCC); Myalgia; Tremor; Impacted cerumen of both ears 01/06/[address] [facility] [address] [place] [address] Darlene De Souza, BLANQUITA from Last 3 Months Immunizations Immunization Administration [...] Care Team (Late st Contact Info) Description 04/17/2025 4:00 PM EDT Procedure Visit [facility] [address] [facility] [address] [place] [phone] Saul Pérez, DPM [address] [facility] [address] [place] [address] 06/11/2025 1:00 PM EDT Office Visit [facility] [address] [place] [phone] Darlene De Souza, BLANQUITA [address] [place] [phone] Health Maintenance Due Date Last Done Comments CT Colonography 1950 FIT-DNA 1950 FIT 1950 FOBT 1950 Sigmoidoscopy 1950 Medicare Annual Wellness (AWV) 10/16/2025 10/16/2024 , 10/10/2023 Colonoscopy 10/30/2027 10/30/2017 Colorectal Cancer Screening 10/30/2027 Influenza Vaccine Completed 08/02/2024, , 08/22/2023, Additional history exists Pneumococcal Vaccine: 65+ Years Completed 08/02/2024, 10/30/2021, 08/06/2020 Procedures Procedure Name Priority Date/Time Associated Diagnosis Comments FOLATE, SERUM Routine 03/26/2025 9:59 AM EDT Idiopathic peripheral neuropathy FOLATE, SERUM Routine 03/26/2025 9:59 AM EDT Idiopathic peripheral neuropathy HISTOPLASMA CAPSULATUM ABS. Routine 03/25/2025 9:14 AM EDT ASPERGILLUS AB, QN, DID Routine 03/25/2025 9:14 AM EDT BLASTOMYCES ABS, QN, DID Routine 03/25/2025 9:14 AM EDT QUANTIFERON-TB GOLD PLUS Routine 03/25/2025 9:14 AM EDT PROTEIN ELECTRO.,S Routine 03/25/2025 9: 14 AM EDT ALL ANGIOTENSIN CONVERTING ENZYME Routine 03/25/2025 9:14 AM EDT ALL FOLIC ACID Routine 03/25/2025 9:14 AM EDT HISTOPLASMA GAL'BRODERICK AG UR Routine 03/25/2025 8:46 AM EDT VITAMIN B12 Routine 02/27/2025 10:27 AM EDT ALL THYROID STIM HORMONE Routine 02/27/2025 10:27 AM EDT ALL T3 FREE Routine 02/27/2025 10:27 AM EDT ALL MAGNESIUM Routine 02/27/2025 10:27 AM EDT [facility] CMP (CMP) (FOR REMOTE [facility] USE) Routine 02/27/2025 10:27 AM [...] EDT from Last 3 Months Results * Folate (03/26/2025 9:59 AM EDT) Only the most recent of2 resultswithin the time period is included. Blood Venous blood specimen / Unknown us Yulissa Stanford DO LAB BLOOD ORDERABLES Final Resu lt [facility] * ASPERGILLUS AB, QN, DID (03/25/2025 9:14 AM EDT) ASPERG.1 Negative Neg:<1:1 TBH ASPERG.2 Negative Neg:<1:1 TBH ASPERG.3 Negative Neg:<1:1 [facility] 03/25/2025 9:14 AM EDT 03/25/2025 9:16 AM EDT Narrative CLIN[facility]NC - 03/28/2025 11:08 PM EDT us Generic External Data Provider LAB BLOOD ORDERAB LES Final Result [facility]IN[facility] TBH * QUANTIFERON-TB GOLD PLUS (03/25/2025 9:14 AM EDT) Pathologist [facility] QUANTIFERON INCUBATION . TBH Comment: Incubation performed. Reference Range: . QUANTIFERON-TB GOLD PLUS Negative Negative TBH Comment: No response to M tuberculosis antigens detected. Infection with M tuberculosis is unlikely, but high risk individuals should be considered for additional testing (ATS/IDSA/CDC Clinical Practice Guidelines, 2017). The reference range is an Antigen minus Nil result of <0.35 IU/mL. Chemiluminescence immunoassay methodology Performed at: [facility] [address] [id number] Pallet Sorter: Sin Goss PhD, Phone: [phone] QUANTIFERON CRITERIA Comment . TBH Comment: QuantiFERON-TB Gold Plus is a qualitative indirect test for M tuberculosis infection (including disease) and is intended for use in conjunction with risk assessment, radiography, and other medical and diagnostic evaluations. The QuantiFERON-TB Gold Plus result is determined by subtracting the Nil value from either TB antigen (Ag) value. The Mitogen tube serves as a control for the test. QUANTIFERON TB1 AG VALUE 0.04 . IU/mL TBH QUANTIFERON TB2 AG VALUE 0.04 . IU/mL TBH QUANTIFERON NIL VALUE 0.04 . IU/mL TBH QUANTIFERON MITOGEN VALUE 7.94 . IU/mL TBH 03/25/2025 9:14 AM EDT 03/25/2025 9:16 AM EDT Narrative [facility] - 03/27/2025 5:07 AM EDT Generic External Data Provider LAB BLOOD ORDERAB LES Final Result [facility]IN[facility]NC TB * PROTEIN ELECTRO.,S (03/25/2025 9:14 AM EDT) [facility] PROTEIN, TOTAL 6.3 6.0 - 8.5 g/dL TBH ALBUMIN 3.6 2.9 - 4.4 g/dL TBH [id number]-[id number] 0.3 0.0 - 0.4 g/dL TBH RQFYL-3-XBPCKMMS 0.7 0.4 - 1.0 g/dL TBH BETA GLOBULIN 0.8 0.7 - 1.3 g/dL TBH GAMMA GLOBULIN 0.9 0.4 - 1.8 g/dL TBH M-SPIKE Not Observed Not Observed g/dL TBH GLOBULIN, TOTAL 2.7 2.2 - 3.9 g/dL TBH A/G RATIO 1.3 0.7 - 1.7 TBH PLEASE NOTE: Comment . TBH Comment: Protein electrophoresis scan will follow via computer, mail, or travel med surg rn delivery. Performed at: [address] [id number] Pallet Sorter: Sin Goss PhD, Phone: [phone] 03/25/2025 9:14 AM EDT 03/25/2025 9:16 AM EDT Narrative CLINISYNC - 03/26/2025 5:08 PM EDT Yulissa Stanford DO LAB BLOOD ORDERABLES Final Resu lt Performing Organization Address [facility] de Phone Number [facility] * HISTOPLASMA CAPSULATUM ABS. (03/25/2025 9:14 AM EDT) HISTOPLASMA MYCELIAL CF AB. Negative Neg:<1:2 TBH HISTOPLASMA YEAST CF AB Negative Neg:<1:2 TBH Comment: Performed at: [address] [id number] Pallet Sorter: Whit Weeks MD, Phone: [phone] 03/25/2025 9:14 AM EDT 03/25/2025 9:16 AM EDT Narrative CLINISYNC - 03/28/2025 11:08 PM EDT Generic External Data Provider LAB BLOOD ORDERAB LES Final Result Performing Organization Address [facility] de Phone Number CLINISYOH TB * BLASTOMYCES ABS, QN, DID (03/25/2025 9:14 AM EDT) BLASTOMYCES ABS, QN, DID Negative Neg:<1:1 TBH Comment: Performed at: [address] [id number] Pallet Sorter: Whit Weeks MD, Phone: [phone] 03/25/2025 9:14 AM EDT 03/25/2025 9:16 AM EDT Narrative CLINISYNC - 03/28/2025 11:08 PM EDT us Generic External Data Provider LAB BLOOD ORDERAB LES Final Result Performing Organization Address [facility] de Phone Number [facility] * ALL FOLIC ACID (03/25/2025 9:14 AM EDT) FOLATE 16.60 8.60 - 58.90 ng/mL TB 03/25/2025 9:14 AM EDT 03/25/2025 9:16 AM EDT Narrative CLINISYNC - 03/25/2025 11:23 AM EDT us Yulissa ACEVESISYNC Final Result Performing Organization Address [facility] Phone Number [facility] * ALL ANGIOTENSIN CONVERTING ENZYME (03/25/2025 9:14 AM EDT) ANGIOTENSIN-CON VERTING ENZYME 46 14 - 82 U/L TBH Comment: Performed at: - [address] [id number] Pallet Sorter: Sin Goss PhD, Phone: [phone] 03/25/2025 9:14 AM EDT 03/25/2025 9:16 AM EDT Narrative CLINISYNC - 03/26/2025 3:08 PM EDT Generic External Data Provider CLINIS[facility]NC F inal Result Performing Organization Address [facility] Phone Number [facility] * HISTOPLASMA GAL'BRODERICK AG UR (03/25/2025 8:46 AM EDT) HISTOPLASMA GAL'BRODERICK AG UR Negative <0.2 ng/mL TBH Comment: Performed at: BN - [address] [id number] Pallet Sorter: Whit Weeks MD, Phone: [phone] 03/25/2025 8:46 AM EDT 03/25/2025 9:16 AM EDT Narrative CLINISYNC - 03/27/2025 4:08 PM EDT URINE us Generic External Data Provider LAB BLOOD ORDERAB LES Final Result Performing Organization Address City/[facility]/ZIP Co de Phone Number CLINISYOH TBH * (ABNORMAL) VITAMIN B12 (02/27/2025 10:27 AM EDT) VITAMIN B12 209(A) 232 - 1245 pg/mL TB Comment: Performed at: [facility] [address] [id number] Pallet Sorter: Sin Goss PhD, Phone: [phone] 02/27/2025 10:2 7 AM EDT 02/27/2025 10:28 AM EDT Narrative CLINISYNC - 02/28/2025 5:07 AM EDT us Darlene De Souza NP LAB BLOOD ORDERABLES Final Resu lt Performing Organization Address [facility] Co de Phone Number CLINISYOH TB * TBH VITAMIN D 25 [place] (02/27/2025 10:27 AM EDT) VITAMIN D 17.0 ng/mL [facility] Comment: <20 ng/mL Vit D deficient 20-<30 ng/mL Vit D insufficient 30-100 ng/mL Vit D sufficient >100 ng/mL Potential Toxicity 02/27/2025 10:2 7 AM EDT 02/27/2025 10:28 AM EDT Narrative CLINISYNC - 02/27/2025 12:41 PM EDT us Darlene De Souza MACHINE PRINTER CLINISYNC Final Result CLINISYNC TBH * (ABNORMAL) [facility] CMP (CMP) (FOR REMOTE [facility] USE) (02/27/2025 10:27 AM EDT) [...] 0.70 - 1.30 mg/dL TBH TBH EGFR-AF SAUDI ARABIAN 50(L) >=60 mL/min/1. 73m 2 TBH TBH EGFR-NON AF SAUDI ARABIAN 41(L) >=60 mL/min/1. 73m 2 TBH BUN [...] 1:16 PM EDT us Darlene De Souza NP [facility] Final Result [facility] * ALL THYROXINE (T4) FREE (02/27/2025 10:27 AM EDT) FREE T4 1.11 0.76 - 1.46 ng/dL TBH 02/27/2025 10:2 7 AM EDT 02/27/2025 10:28 AM EDT Narrative CLINISYNC - 02/27/2025 12:41 PM EDT us Darlene De Souza MACHINE PRINTER CLINISYNC Final Result CLINIS[facility]NC TB * ALL THYROID STIM HORMONE (02/27/2025 10:27 AM EDT) THYROID STIMULATING HORMONE 1.976 0.358 - 3.740 uIU/mL TBH 02/27/2025 10:2 7 AM EDT 02/27/2025 10:28 AM EDT Narrative CLINISYNC - 02/27/2025 1:16 PM EDT us Darelne Matiasmiguel ángel MACHINE PRINTER CLINISYNC Final Result Performing Organization Address [facility] Co de Phone Number CLINISYNC TBH * ALL T3 FREE (02/27/2025 10:27 AM EDT) FREE T3 2.62 2.18 - 3.98 pg/mL TBH 02/27/2025 10:2 7 AM EDT 02/27/2025 10:28 AM EDT Narrative CLINISYNC - 02/27/2025 1:16 PM EDT us Darlene Matiasmiguel ángel MACHINE PRINTER CLINISYNC Final Result [facility]NC TB * ALL MAGNESIUM (02/27/2025 10:27 AM EDT) MAGNESIUM 2.0 1.8 - 2.4 mg/dL TBH 02/27/2025 10:2 7 AM EDT 02/27/2025 10:28 AM EDT Narrative CLINISYNC - 02/27/2025 1:16 PM EDT us Darlene Matiasmiguel ángel MACHINE PRINTER CLINISYNC Final Result [facility]IN[facility]NC TB * (ABNORMAL) ALL CBC WITH AUTO DIFF (02/27/2025 10:27 AM EDT) [facility] TB WBC 7.4 4.0 - 11.0 10 3/uL TBH TBH RBC 5.32 4.70 - 6.10 10 6/uL TBH TBH HGB 17.1 14.0 - 18.0 g/dL TBH TBH HCT 50.2 42.0 - 54.0 % TBH TBH MCV 94.4(H) 80.0 - 94.0 fL TBH TBH MCH 32.1 25.9 - 34.0 pg TBH TBH MCHC 34.1 29.9 - 35.2 g/dL TBH TBH RDW 13.2 11.0 - 15.0 % TBH [...] Narrative CLINISYNC - 02/27/2025 10:42 AM EDT Darlene De Souza NP CLINISYNC Final Result Performing Organization Address City/State/[facility] de Phone Number CLINISYNC TB * TBH UA (CLEAN/CATCH) MICROSCOPIC IF INDICATE [...] 10:46 AM EDT us Darlene De Souza NP CLINISYNC Final Result Performing Organization Address [facility] de Phone Number CLINISYNC TB * TBH MICROALB CREAT RATIO RANDOM (02/27/2025 10:20 AM EDT) MICROALBUMIN URINE RANDOM 2.7 <=30.0 mg/dL TB CREATININE URINE RANDOM 148.13 20.00 - 300.00 mg/dL TB MICROALBUM CREATININE RATIO UR 18.2 0.0 - 29.9 mg/g TB Comment: NO MICROALBUMINURIA 0-29 MG/G CLINICAL MICROALBUMINURIA 30-300 MG/G MACROALBUMINURIA >300 MG/G 02/27/2025 10:2 0 AM EDT 02/27/2025 10:28 AM EDT Narrative CLINISYNC - 02/27/2025 11:04 AM EDT us Darlene De Souza NP CLINISYNC Final Result Performing Organization Address [facility] de Phone Number CLINISYNC TB * CT CHEST WO CON (01/08/2025 6:07 PM EDT) Anatomical Region Laterality Modality Other 01/08/2025 6:07 PM EDT Narrative 01/08/2025 6:10 [place] [address] CT Scan Report Signed Patient: SPENCER DAWN MR#: [id number] : 1950 Acct:[id number] Age/Sex: 74 / M ADM Date: 01/08/25 Loc: CT Attending Dr: Darlene Christensen D.O. Ordering Physician: Darlene Christensen D.O. Date of Service: 01/08/25 Procedure(s): CT chest wo con Accession Number(s): [id number] cc: ZAINAB DEMPSEY [place] [address] Patient Name: SPENCER DAWN MRN: [id number] date: 1950 Sex: M Assigned Patient Location: CT Current Patient Location: CT Accession/Order Number: [id number] Exam Date: 01/08/2025 18:00 Report Date: 01/08/2025 [...] Tonny Aguilar M.D.01/08/2025 6:07 PM Dictation Location: [place] [address] Electronically authenticated by: [id number] Y Date: 01/08/2025 18:07 Dictated By: Tonny Aguilar D.O. Signed By: 01/08/251809 DD/ 06 TD/TT: Lockstitch Front Maker: Procedure Note Radiology, Radiologist, MD - 01/08/2025 [place] [address] CT Scan Report Signed Patient: SPENCER DAWN RMR#: [id number] : 1950cct:[id number] Age/Sex: 74 / MADM Date: 01/08/25 Loc: CT Attending Dr: Darlene Christensen D.O. Ordering Physician: Darlene Christensen D.O. Date of Service: 01/08/25 Procedure(s): CT chest wo con Accession Number(s): [id number] cc: ZAINAB DEMPSEY [place] [id number] Patient Name: SPENCER DAWN MRN: [id number] date: 1950 Sex: M Assigned Patient Location: CT Current Patient Location: CT Accession/Order Number: [id number] Exam Date: 01/08/2025 18:00 Report Date: 01/08/2025 [...] Tonny Aguilar M.D.01/08/2025 6:07 PM Dictation Location: [facility] Electronically authenticated by: [id number] Y Date: 8:07 Dictated By: Tonny Aguilar D.O. Signed By:01/08/251809 DD/ 06 TD/TT: Lockstitch Front Maker: Generic External Data Provider [facility] Final Result from Last 3 Months Insurance [employer] Care Teams Electric Refrigerator Servicer Relationship Specialty Start Date End Date Demetrius Dorado MD [address] [place] [phone] PCP - General Family Medicine 06/05/24 Zainab Dempsey NP [address] [place] [phone] Nurse Practitioner Family Medicine 06/05/24
--- OUTSIDE RECORDS SUMMARY | 2025-04-04 14:19 | XMS_ITS | Encounter Summary ---
Author Organization [facility] Address [address] [place] [address] Care Team Providers Care Food Cart Attendant Name Role Phone Demetrius Dorado MD Primary Care Provider [phone] Zainab Dempsey NP Unavailable [phone] Reason for Visit * Reason Comments Med Change Request Encounter Details Date Type Department Care Team ([facility] Contact Info) Description 03/27/2025 Refill JOSEF AUSTIN [address] [place] [address] Yulissa Stanford DO Essential tremor Social History Tobacco Use Types Packs/Day Years [...] Department Care Team (Late Contact Info) Description 04/17/2025 4:00 PM EDT Procedure Visit [facility] 112 [facility] 120 [place] [address] Saul Pérez DPM 3006 [facility] 5 [place] [address] 06/11/2025 1:00 PM EDT Office Visit [facility] [address] [place] [address] Darlene De Souza NP [address] [place] [address] documented as of this encounter Visit Diagnoses Diagnosis Essential tremor documented in this encounter Additional Health Concerns Assessment Noted Time PHQ-9 Depression Total Score: 0 10/16/20 24 9:00 AM EST documented as of this encounter Care Teams Food Cart Attendant Relationship Specialty Start Date End Date Demetrius Dorado MD [address] [place] [address] PCP - General Family Medicine 06/05/24 Zainab Dempsey NP [address] [place] [address] Nurse Practitioner Family Medicine 06/05/24 documented as of this encounter
--- OUTSIDE RECORDS SUMMARY | 2025-04-04 14:19 | XMS_ITS | Encounter Summary ---
Author Organization [facility] Address [address] [place] [address] Care Team Providers Care Pump Erector Helper Name Role Phone Demetrius Dorado MD Primary Care Provider [phone] Zainab Dempsye NP Unavailable [phone] Encounter Details Date Type Department Care Team (Late Contact Info) Description 06/07/2024 Clinisync Result Encounter [facility] External Department Unsolicited Shaikh Knight MD [address] [place] [address] Social History Tobacco Use Types Packs/Day Years [...] Procedure Visit [facility] 112 [facility] 120 [place] [address] Saul Pérez DPM 69[address] [facility] 5 [place] [address] 06/11/2025 1:00 PM EDT Office Visit [facility] [address] [place] [address] Darlene De Souza, BLANQUITA [address] [place] [address] documented as of this encounter Procedures Procedure Name Priority Date/Time Associated Diagnosis Comments RT PULMONARY FUNCTION TEST 06/07/2024 9:01 AM EDT documented in this encounter Results * RT PULMONARY FUNCTION TEST (06/07/2024 9:01 AM EDT) Anatomical Region Laterality Modality Other 06/07/2024 9:01 AM EDT Narrative 06/18/2024 7:35 AM EDT [address] [address] Respiratory Report Signed Patient: MARTIN ARROYO MR#: [id number] : 1950 Acct:[id number] Age/Sex: 74 / M ADM Date: 06/07/24 Loc: CARD Attending Dr: Shaikh Antonia Sam Ordering Physician: Shaikh Cecy Knight Date of Service: 06/07/24 Procedure(s): RT pulmonary function test Accession Number(s): [id number] cc: [facility] Test Date: 2024-06-07 Pat Name: MARTIN ARROYO Department: Room: - Gender: Male Tube Rebuilder: Erin Chowdary RRT : 1950 Requested By: [id number] Order Number: [id number] Edmar MD: Chandler Mckee Interpretive Statements Pulmonary function testing was completed according to ATS criteria. Findings were considered accurate and reproducible. Both pre- and post-bronchodilator values utilized for spirometry. Spirometry (based on pre-bronchodilator values): -FEV1/FVC: Reduced @ 47% -FEV1: Moderately-severe reduction @ 51% -FVC: Reduced @ 79% -NWW14-53%: Reduced @ 27% -There is no significant [...] Signed By: 06/18/24 0735 DD/ 0901 TD/TT: Chiller Operator: Procedure Note Radiology, Radiologist, MD - 06/18/2024 [place] [address] Respiratory Report Signed Patient: MARTIN ARROYO RMR#: [id number] : 1950cct:[id number] Age/Sex: 74 / MADM Date: 06/07/24 Loc: CARD Attending Dr: Shaikh Antonia Sam Ordering Physician: Shaikh Cecy Knight Date of Service: 06/07/24 Procedure(s): RT pulmonary function test Accession Number(s): [id number] cc: The [facility] Test Date: 2024-06-07 Pat Name: MARTIN ARROYO Department: Room: - Gender: Male Tube Rebuilder: Erin Chowdary RRT : 1950 Requested By: [id number] Order Number: [id number] Reading MD: Chandler Mckee Interpretive Statements Pulmonary function testing was completed according to ATS criteria.Findings were considered accurate and reproducible. Both pre- andpost-bronchodilator values utilized for spirometry. Spirometry (based on pre-bronchodilator values): -FEV1/FVC: Reduced @ 47% -FEV1: Moderately-severe reduction @ 51% -FVC: Reduced @ 79% -XUQ78-48%: Reduced @ 27% -There is no significant [...] D.O. Signed By:06/18/24 0735 DD/ 0901 TD/TT: Chiller Operator: us Shaikh Antonia [facility] Final Result documented in this encounter Visit Diagnoses Not on filedocumented in this encounter Additional Health Concerns Assessment Noted Time PHQ-9 Depression Total Score: 0 10/10/20 23 11:00 AM EST documented as of this encounter Care Teams Pump Erector Helper Relationship Specialty Start Date End Date Demetrius Dorado MD [address] [place] [address] PCP - General Family Medicine 06/05/24 Zainab Dempsey NP [address] [place] [address] Nurse Practitioner Family Medicine 06/05/24 documented as of this encounter
--- OUTSIDE RECORDS SUMMARY | 2025-04-04 14:19 | XMS_ITS | Encounter Summary ---
Author Organization [facility] Address [address] [place] [address] Care Team Providers Care Chuck Splitter Name Role Phone Demetrius Dorado MD Primary Care Provider [phone] Zainab Gerard NP Unavailable [phone] Encounter Details Date Type Department Care Team [...] of Assessment Author Trouble falling or staying a sleep, or sleeping too much Not at all [...] all 10/16/2024 9:00 AM Giulia Mayer MA Trouble concentrating on thi ngs, such [...] Upcoming Encounters Date Type Department Care Team ([facility] st Contact Info) Description 04/17/2025 4:00 PM EDT Procedure Visit [facility] [address] [facility] 120 [place] [address] Saul Pérez DPM 3006 [facility] 5 [place] [address] 06/11/2025 1:00 PM EDT Office Visit [facility] [address] [place] [address] Darlene De Souza NP [address] [place] [address] documented as of this encounter Procedures Procedure Name Priority Date/Time Associated Diagnosis Comments CT LUNG SCREENING LOW DOSE 10/14/2024 11:30 AM EST documented in this encounter Results * CT LUNG SCREENING LOW DOSE (10/14/2024 11:30 AM EST) Anatomical Region Laterality Modality Other 10/14/2024 11:3 0 AM EST Narrative 10/14/2024 11:32 AM EST [address] [address] [address] Scan Report Signed Patient: SPENCER ARROYO MR#: [id number] : 1950 Acct:[id number] Age/Sex: 74 / M ADM Date: 10/11/24 Loc: CT Attending Dr: Darlene Christensen D.O. Ordering Physician: Darlene Christensen D.O. Date of Service: 10/11/24 Procedure(s): CT lung screening low-dose Accession Number(s): [id number] cc: ZAINAB GERARD [place] [id number] Patient Name: SPENCER ARROYO MRN: [id number] date: 1950 Sex: M Assigned Patient Location: CT Current Patient Location: Accession/Order Number: [id number] Exam Date: 10/11/2024 10:05 Report Date: 10/14/2024 [...] Signed By: 10/14/24 1132 DD/ 1130 TD/TT: Production Maintenance Mechanic: Procedure Note Radiology, Radiologist, MD - 10/14/2024 [place] [address] CT Scan Report Signed Patient: SPENCER ARROYO RMR#: [id number] : 1950cct:[id number] Age/Sex: 74 / MADM Date: 10/11/24 Loc: CT Attending Dr: Darlene Christensen D.O. Ordering Physician: Darlene Christensen D.O. Date of Service: 10/11/24 Procedure(s): CT lung screening low-dose Accession Number(s): [id number] cc: ZAINAB GERARD [place] [id number] Patient Name: SPENCER ARROYO MRN: [id number] date: 1950 Sex: M Assigned Patient Location: CT Current Patient Location: Accession/Order Number: [id number] Exam Date: 10/11/2024 10:05 Report Date: 10/14/2024 [...] M.D. Signed By:10/14/24 1132 DD/ 1130 TD/TT: Production Maintenance Mechanic: us Generic External Data Provider [facility] Final Result documented in this encounter Visit Diagnoses Not on filedocumented in this encounter Additional Health Concerns Assessment Noted Time PHQ-9 Depression Total Score: 0 10/10/20 23 11:00 AM EST documented as of this encounter Care Teams Chuck Splitter Relationship Specialty Start Date End Date Demetrius Dorado MD [address] [place] [address] PCP - General Family Medicine 06/05/24 Zainab Gerard NP [address] [place] [address] Nurse Practitioner Family Medicine 06/05/24 documented as of this encounter
--- OUTSIDE RECORDS SUMMARY | 2025-04-04 14:19 | XMS_ITS | Clinical Summary ---
Author Organization [facility] Address [address] [place] [address] Care Team Providers Care Fashion Consultant Name Role Phone Shaikh MOIZ Knight Primary Care Provider [phone] Allergies No known active allergies Medications Medication [...] age to complete this topic Care Teams Fashion Consultant Relationship Specialty Start Date End Date Fawwad, Roberts, MD [address] [place] [address] PCP - General Family Medicine 01/24/23
--- OUTSIDE RECORDS SUMMARY | 2025-04-04 14:19 | XMS_ITS | Encounter Summary ---
Author Organization [facility] Address [address] [place] [address] Care Team Providers Care Optimization Analyst Name Role Phone Demetrius Dorado MD Primary Care Provider [phone] Zainab Dempsey NP Unavailable [phone] Encounter Details Date Type Department Care Team (Late Contact Info) Description 03/25/2025 Clinisync Result Encounter [facility] External Department Unsolicited Yulissa Stanford DO Social History Tobacco Use Types Packs/Day Years [...] EDT Procedure Visit [facility] 112 [facility] 120 [place] [address] Saul Pérez, DPM 3006 [facility] 5 [place] [address] 06/11/2025 1:00 PM EDT Office Visit [facility] [address] [place] [address] Darlene De Souza NP [address] [place] [address] documented as of this encounter Procedures Procedure Name Priority Date/Time Associated Diagnosis Comments ASPERGILLUS AB, QN, DID Routine 03/25/2025 9:14 AM EDT QUANTIFERON-TB GOLD PLUS Routine 03/25/2025 9:14 AM EDT PROTEIN ELECTRO.,S Routine 03/25/2025 9: 14 AM EDT HISTOPLASMA CAPSULATUM ABS. Routine 03/25/2025 9:14 AM EDT BLASTOMYCES ABS, QN, DID Routine 03/25/2025 9:14 AM EDT ALL FOLIC ACID Routine 03/25/2025 9:14 AM EDT ALL ANGIOTENSIN CONVERTING ENZYME Routine 03/25/2025 9:14 AM EDT HISTOPLASMA GAL'BRODERICK AG UR Routine 03/25/2025 8:46 AM EDT documented in this encounter Results * HISTOPLASMA CAPSULATUM ABS. (03/25/2025 9:14 AM EDT) HISTOPLASMA MYCELIAL CF AB. Negative Neg:<1:2 [facility] HISTOPLASMA YEAST CF AB Negative Neg:<1:2 [facility] Comment: Performed at: [address] [id number] Manager Gaming: Whit Weeks MD, Phone: [phone] 03/25/2025 9:14 AM EDT 03/25/2025 9:16 AM EDT Narrative [facility] - 03/28/2025 11:08 PM EDT us Generic External Data Provider LAB BLOOD ORDERAB LES Final Result [facility] * ASPERGILLUS AB, QN, DID (03/25/2025 9:14 AM EDT) [facility] ASPERG.1 Negative Neg:<1:1 [facility] ASPERG.2 Negative Neg:<1:1 [facility] ASPERG.3 Negative Neg:<1:1 [facility] 03/25/2025 9:14 AM EDT 03/25/2025 9:16 AM EDT Narrative [facility] - 03/28/2025 11:08 PM EDT Generic External Data Provider LAB BLOOD ORDERAB LES Final Result Performing Organization Address [facility] Co de Phone Number [facility] * BLASTOMYCES ABS, QN, DID (03/25/2025 9:14 AM EDT) [facility] BLASTOMYCES ABS, QN, DID Negative Neg:<1:1 [facility] Comment: Performed at: [address] [id number] Manager Gaming: Whit Weeks MD, Phone: [phone] 03/25/2025 9:14 AM EDT 03/25/2025 9:16 AM EDT Narrative [facility] 03/28/2025 11:08 PM EDT [facility] External Data Provider LAB BLOOD ORDERAB LES Final Result Performing Organization Address [facility] de Phone Number [facility] * QUANTIFERON-TB GOLD PLUS (03/25/2025 9:14 AM EDT) [facility] QUANTIFERON INCUBATION . [facility] Comment: [...] <0.35 IU/mL. Chemiluminescence immunoassay methodology Performed at: [address] [id number] Manager Gaming: Sin Goss PhD, Phone: [phone] QUANTIFERON CRITERIA Comment . TB Comment: QuantiFERON-TB Gold Plus is a qualitative [...] Narrative [facility] - 03/27/2025 5:07 AM EDT us Generic External Data Provider LAB BLOOD ORDERAB LES Final Result [facility] * PROTEIN ELECTRO.,S (03/25/2025 9:14 AM EDT) PROTEIN, TOTAL 6.3 6.0 - 8.5 g/dL [facility] ALBUMIN 3.6 2.9 - 4.4 g/dL [facility] UVIOU-5-GCNFJXVS 0.3 0.0 - 0.4 g/dL [facility] RMOHG-4-RPGMNLCN 0.7 0.4 - 1.0 g/dL [facility] BETA GLOBULIN 0.8 0.7 - 1.3 g/dL [facility] GAMMA GLOBULIN 0.9 0.4 - 1.8 g/dL [facility] M-SPIKE Not Observed Not Observed g/dL [facility] GLOBULIN, TOTAL 2.7 2.2 - 3.9 g/dL [facility] A/G RATIO 1.3 0.7 - 1.7 [facility] PLEASE NOTE: Comment . TB Comment: Protein electrophoresis scan will follow via computer, mail, or brick kiln worker delivery. Performed at: [address] [id number] Manager Gaming: Sin Goss PhD, Phone: [phone] 03/25/2025 9:14 AM EDT 03/25/2025 9:16 AM EDT Narrative [facility] - 03/26/2025 5:08 PM EDT Yulissa Stanford DO LAB BLOOD ORDERABLES Final Resu lt [facility] * ALL ANGIOTENSIN CONVERTING ENZYME (03/25/2025 9:14 AM EDT) Pathologist [facility] ANGIOTENSIN-CON VERTING ENZYME 46 14 - 82 U/L [facility] Comment: Performed at: - Lab[address] [id number] Manager Gaming: Sin Goss PhD, Phone: [phone] 03/25/2025 9:14 AM EDT 03/25/2025 9:16 AM EDT Narrative [facility] - 03/26/2025 3:08 PM EDT Generic External Data Provider [facility] F inal Result Performing Organization Address [facility]/ZIP Co de Phone Number [facility] TB * ALL FOLIC ACID (03/25/2025 9:14 AM EDT) [facility] FOLATE 16.60 8.60 - 58.90 ng/mL [facility] 03/25/2025 9:14 AM EDT 03/25/2025 9:16 AM EDT Narrative [facility] - 03/25/2025 11:23 AM EDT Yulissa Stanford DO [facility] Final Result Performing Organization Address [facility]/ZIP Co de Phone Number [facility] TB * HISTOPLASMA GAL'BRODERICK AG UR (03/25/2025 8:46 AM EDT) [facility] HISTOPLASMA GAL'BRODERICK AG UR Negative <0.2 ng/mL [facility] Comment: Performed at: [facility] [address] [id number] Manager Gaming: Whit Weeks MD, Phone: [phone] 03/25/2025 8:46 AM EDT 03/25/2025 9:16 AM EDT Narrative [facility] - 03/27/2025 4:08 PM EDT URINE us Generic External Data Provider LAB BLOOD ORDERAB LES Final Result Performing Organization Address City/State/[facility] Co de Phone Number [facility] documented in this encounter Visit Diagnoses Not on filedocumented in this encounter Additional Health Concerns Assessment Noted Time PHQ-9 Depression Total Score: 0 10/16/20 9:00 AM EST documented as of this encounter Care Teams Optimization Analyst Relationship Specialty Start Date End Date Demetrius Dorado MD [address] [place] [address] PCP - General Family Medicine 06/05/24 Zainab Dempsey NP [address] [place] [address] Nurse Practitioner Family Medicine 06/05/24 documented as of this encounter
--- OUTSIDE RECORDS SUMMARY | 2025-04-04 14:19 | XMS_ITS | Referral Summary ---
Author Organization [facility] Address [address] [place] [address] Care Team Providers Care Development Spec Name Role Phone Shaikh MOIZ Knight Primary Care Provider [phone] Allergies No known active allergies Medications Medication [...] drink = 0.6 oz pur e alcohol) [place] [employer] Answer Date Rec orded [...] of Treatment Not on file Care Teams Development Spec Relationship Specialty Start Date End Date Shaikh Knight MD [address] [place] [address] PCP - General Family Medicine 01/24/23
--- OUTSIDE RECORDS SUMMARY | 2025-04-04 14:19 | XMS_ITS | Encounter Summary ---
Author Organization [facility] Address [address] [place] [address] Care Team Providers Care Distillery Laborer Name Role Phone Demetrius Dorado MD Primary Care Provider [phone] Zainab Dempsey NP Unavailable [phone] Reason for Visit * Reason Comments Med Refill Encounter Details Date Type Department Care Team (Late Contact Info) Description 03/25/2025 Refill [facility] [address] [place] [address] Darlene De Souza NP [address] [place] [address] Pulmonary emphysema, unspecified emphysema type (CMS/HCC) (Primary Dx) Social History Tobacco Use Types Packs/Day Years [...] EDT Procedure Visit [facility] 112 [facility] [address] [place] [address] Saul Pérez DPM 3006 [facility] 5 [place] [address] 06/11/2025 1:00 PM EDT Office Visit [facility] [address] [place] [address] Darlene De Souza NP [address] [place] [address] documented as of this encounter Visit Diagnoses Diagnosis Pulmonary emphysema, unspecified emphysema type (CMS/HCC)- Primary documented in this encounter Additional Health Concerns Assessment Noted Time PHQ-9 Depression Total Score: 0 10/16/20 9:00 AM EST documented as of this encounter Care Teams Distillery Laborer Relationship Specialty Start Date End Date Demetrius Dorado MD [address] [place] [address] PCP - General Family Medicine 06/05/24 Zainab Dempsey NP [address] [place] [address] Nurse Practitioner Family Medicine 06/05/24 documented as of this encounter
--- NOTE | 2025-04-04 14:22 | CT_ITS ---
The [address] [address] Patient Name: MARTIN DAWN MRN: [id number] date: 1950 Sex: M Assigned Patient Location: CT Current Patient Location: CT Accession/Order Number: [id number] Exam Date: 04/04/2025 15:00 Report Date: 04/04/2025 15:18 At the request of: DARLENE CHRISTENSEN DO Procedure: CT chest wo con CT CHEST WITHOUT CONTRAST COMPARISON: 01/08/2025 and 10/11/2024 CLINICAL DATA: Follow-up pulmonary nodules. Shortness of breath with exertion. Spiral axial unenhanced images were obtained through the chest. Images were reviewed using both narrow and wide window settings. This CT exam was performed using one or more following dose reduction techniques: Automated exposure control, adjustment of the mA and/or kV according to patient size, or use of iterative reconstruction technique. The heart is normal in size. There is no pericardial effusion. There is minor coronary artery disease. No aortic aneurysm is seen. There is plaque at the aortic arch and proximal great vessels. There are calcified subcarinal and paratracheal lymph nodes. There are also noncalcified lymph nodes, largest in the prevascular region where there is increase in size from short axis dimension of 10 mm to 13 mm. Small hilar lymph nodes are also suspected. Minor gynecomastia is seen. The bony structures are osteopenic. There is slight dextroscoliotic curvature as well degenerative changes at the spine. Is obstructive lung disease with airspace lucencies and subpleural blebs. There is similar parenchymal change that may be scarring at the medial right lower lobe. There is also additional similar atelectasis or scarring at both bases. No new consolidation is visualized. No pleural effusion or pneumothorax is seen. The small irregular nodule at the left upper lobe on the prior is resolving. There is a second tiny nodular area lateral to it which is unchanged. There are 2 new irregular nodular areas within the left upper lobe (axial images 46 and 49) measuring 12 mm and 9 mm respectively. There is a calcified granuloma at the lateral right costophrenic angle. A potential tiny developing nodular density is also seen at the lateral right middle lobe (axial image 65). No other pulmonary nodularity is noted. Limited cuts through the upper abdomen show similar hepatic hypodensities, possibly cysts. There is moderate fluid within the stomach. CT/CT chest wo con IMPRESSION: ADVANCED OBSTRUCTIVE LUNG DISEASE WITH AREAS OF SCARRING AND/OR ATELECTASIS. RESOLVING LEFT UPPER LOBE NODULE SEEN PREVIOUSLY THOUGH 2 NEW IRREGULAR NODULAR OPACITIES DEVELOPING IN THE SAME LOBE AND TINY DEVELOPING NODULE AT THE RIGHT MIDDLE LOBE. CONTINUED SHORT INTERVAL FOLLOW-UP IS SUGGESTED. SLIGHT INCREASE IN SIZE OF PREVASCULAR LYMPH NODE. Impression dictated by: Caren Acuña M.D. 04/04/2025 3:18 PM Dictation Location: [place] [address] Electronically authenticated by: [id number] Y Date: 04/04/2025 15:18
--- OUTSIDE RECORDS SUMMARY | 2025-04-04 14:28 | XMS_ITS | CCD ---
Author Organization [facility]iniSy[facility] Care Team Providers Care Musical String Maker Name Role Phone PHYSICIAN, DEFAULT Unavailable Unavailable PHYSICIAN, DEFAULT Unavailable Unavailable LorenaFranklyn sierrarafi Unavailable Rowena Haines Unavailable DIANE, BARKER H Attending Unavailable DR YANDY MALONEY V Consulting Unavailable RICHELLE HUNTLEY Primary Care Unavailable FAWWAD, BARKER H Admitting Unavailable FAWWAD, BARKER H Referring Unavailable DR MARSHALL DAVISON Consulting Unavailable FAWWAD, BARKER H Consulting Unavailable YANDY PÉREZ Consulting Unavailable RICHELLE HUNTLEY Primary Care Unavailable FAWWAD, BARKER H Attending Unavailable FAWWAD, BARKER H Admitting Unavailable FAWWAD, BARKER H Consulting Unavailable DR MARSHALL DAVISON Consulting Unavailable FAWWAD, BARKER H Attending Unavailable RICHELLE HUNTLEY Primary Care Unavailable FAWWAD, BARKER H Admitting Unavailable FAWWAD, BARKER H Consulting Unavailable FAWWAD, BARKER H Attending Unavailable RICHELLE HUNTLEY Primary Care Unavailable FAWWAD, BARKER H Admitting Unavailable RICHELLE HUNTLEY Primary Care Unavailable DR MARSHALL DAVISON Consulting Unavailable FAWWAD, BARKER H Admitting Unavailable FAWWAD, BARKER H Attending Unavailable FAWWAD, BARKER H Consulting Unavailable CANDACEWWAD, BARKER H Attending Unavailable RICHELLE HUNTLEY Primary Care Unavailable DR YANDY MALONEY V Consulting Unavailable FAWWAD, BARKER H Admitting Unavailable FAWWAD, BARKER H Consulting Unavailable SEBASTIAN KOHLER Attending Unavailable SEBASTIAN KOHLER Attending Unavailable Ave ROCKWELL, Demetrius Primary Care Provider Ke JUARES, Linda Unavailable Ke CAMPGROUND ATTENDANT, Linda Unavailable [phone] DARLENE DE SOUZA Attending Unavailable SAUL PÉREZ Attending Unavailable SAUL PÉREZ Attending Unavailable SHAIKH CONTRERAS Attending Unavailable ALONSO ADAMS Attending Unavailable DARLENE DE SOUZA Referring Unavailable DARLENE DE SOUZA Attending Unavailable SHAIKH CONTRERAS Attending Unavailable SAUL PÉREZ Attending Unavailable LINDA DEMPSEY Attending UnavailSAUL Randhawa Attending Unavailable LINDA DEMPSEY Attending SAUL Cantrell Attending Unavailable Medications Current Medications Medication Drug Class(es) Dates Sig (Normalized) Sig (Original) [id number] 200 actuat albuterol 0.09 mg/actuat metered dose inhaler (20 sources) beta2-Adrenergic Agonist Start: 03-25-2025 End: 04-24-2025 take 2 puff(s) by inhalation every six hours for wheezing albuterol HFA 90 mcg/act inhaler Indications: Pulmonary emphysema, unspecified emphysema type (CMS/HCC) Inhale 2 puffs every 6 (six) hours if needed for wheezing or shortness of breath 18 g 1 03/25/2025 04/24/2025 Active End: 03-25-2025 take 2 puff(s) by inhalation every four hours for wheezing albuterol HFA 90 mcg/act inhaler Inhale 2 puffs every 4 (four) hours if needed for wheezing 03/25/2025 Discontinued take 2 puff(s) by in halation every four hours as needed Ventolin HFA 108 (90 Base) MCG/ACT 2 puff as needed Inhalation every 4 hrs Active carbamide peroxide 65 mg/ml otic solution (2 sources) Start: 07-08-2024 End: 07-12-2024 carbamide peroxide (Debrox) 6.5 % otic solution Indications: Impacted cerumen of both ears Administer 3-5 drops into affected ear(s) in the morning and 3-5 drops before bedtime. Do all this for 4 days. 15 mL 07/08/2024 07/12/2024 Active cholecalciferol 0.125 mg oral capsule (9 sources) Vitamin D Start: 02-27-2025 End: 03-29-2025 take 1 capsule by mouth once daily cholecalciferol (Vitamin D-3) 125 MCG (5000 UT) capsule Indications: Vitamin D deficiency Take 1 capsule (125 mcg) by mouth Daily 30 capsule 2 02/27/2025 03/29/2025 Active cyclobenzaprine hydrochloride 5 mg oral tablet (1 source) Muscle Relaxant Start: 06-17-2022 take 1 tablet by mouth every eight hours Cyclobenzaprine HCl 5 MG 1 tablet as needed Orally Three times a day May, Active Fluticasone-Umeclidin -Vilant (Trelegy Ellipta) 200-62.5-25 MCG/ACT aerosol powder (20 sources) take 1 puff(s) by inhalation once daily Fluticasone-Umeclidin -Vilant (Trelegy Ellipta) 200-62.5-25 MCG/ACT aerosol powder Inhale 1 puff Daily Active methylPREDNISolone 4 mg oral tablet (1 source) Corticosteroid Start: 06-17-2022 methylPREDNISolone 4 MG start tomorrow as directed Orally Once a day for 6 days May, Active 24 hr propranolol hydrochloride 60 mg extended release oral capsule (7 sources) beta-Adrenergic Luis Start: 03-05-2025 End: 03-05-2026 take 1 capsule by mouth once daily propranolol LA (Inderal LA) 60 MG 24 hr capsule Indications: Essential tremor Take 1 capsule (60 mg) by mouth Daily Do not crush, chew, or split. 30 capsule 2 03/05/2025 03/05/2026 Active Trelegy Ellipta (1 source) Trelegy Ellipta [...] oral tablet (1 source) alpha-Adrenergic Agonist, Uncompetitive V-goorus-I-aspartate Receptor Antagonist, Sigma-1 Agonist Capmist DM 60-15-400 MG 1 tablet at 4 hour intervals as needed Orally Four times a day Not-Taking Toradol 30 mg/ml (1 source) Start: 06-17-2022 Toradol 30 mg/ml May, 30 mg triamcinolone acetonide 40 mg/ml injectable suspension (1 source) Corticosteroid Start: 06-17-2022 Kenalog-40 May, 40 mg Problems Active Problems Problem Classification Problem Date Documented Date Episodic/Chronic Chronic kidney disease (20 sources) Chronic kidney disease stage 3A ; Translations: [Chronic kidney disease, stage 3a] Onset: 10-10-2023 10-10-2023 Chronic Chronic kidney disease (3 sources) Chronic kidney disease; Translations: [Chronic kidney disease, stage III (moderate)] Onset: 03-08-2022 Resolved: 03-08-2022 Chronic obstructive pulmonary disease and bronchiectasis (20 sources) Chronic obstructive pulmonary disease, unspecified; Translations: [Pulmonary emphysema] Onset: 12-16-2021 Resolved: 01-06-2025 10-10-2023 Chronic Disorders of lipid metabolism (2 sources) Hyperlipidemia, unspecified; Translations: [Hyperlipidemia, unspecified] Onset: 07-07-2023 Chronic Mycoses (3 sources) Pain in toe; Translations: [Tinea unguium] 08-19-2024 Episodic Nutritional deficiencies (12 sources) Vitamin D deficiency; Translations: [Vitamin D deficiency, unspecified] Onset: 02-27-2025 02-27-2025 Chronic Nutritional deficiencies (8 sources) Cobalamin deficiency; Translations: [Deficiency of other specified B group vitamins] Onset: 03-11-2025 03-05-2025 Episodic Other connective tissue disease (17 sources) Muscle pain; Translations: [Myalgia, unspecified site] Onset: 01-06-2025 01-06-2025 Episodic Other diseases of veins and lymphatics (3 sources) Vascular insufficiency; Translations: [Venous insufficiency (chronic) (peripheral)] 08-19-2024 Episodic Other hereditary and degenerative nervous system conditions (2 sources) Essential tremor; Translations: [Essential tremor] 03-05-2025 Chronic Other lower respiratory disease (4 sources) Other forms of dyspnea; Translations: [OTHER FORMS OF DYSPNEA] Onset: 11-10-2022 Episodic Other lower respiratory disease (15 sources) Multiple nodules of lung; Translations: [Other nonspecific abnormal finding of lung field] Onset: 01-06-2025 01-06-2025 Episodic Other nervous system disorders (2 sources) Idiopathic peripheral neuropathy; Translations: [Hereditary and idiopathic neuropathy, unspecified] 03-05-2025 Chronic Other nervous system disorders (20 sources) Tremor; Translations: [Tremor, unspecified] Onset: 01-06-2025 01-06-2025 Episodic Other nervous system disorders (2 sources) Numbness and tingling sensation of skin; Translations: [Anesthesia of skin] 03-05-2025 Episodic Other screening for suspected conditions (not mental disorders or infectious disease) (4 sources) Abnormal findings on diagnostic imaging of other specified body structures; Translations: [ABNORML FIND DX IMG OTH BODY STRUC] Onset: 02-22-2022 Chronic Other screening for suspected conditions (not mental disorders or infectious disease) (18 sources) Encounter for screening for malignant neoplasm of respiratory organs; Translations: [Patient encounter status] Onset: 12-16-2021 01-06-2025 Episodic Respiratory failure; insufficiency; arrest (adult) (17 sources) Chronic hypoxemic respiratory failure; Translations: [Chronic respiratory failure with hypoxia] Onset: 01-06-2025 01-06-2025 Chronic Spondylosis; intervertebral disc disorders; other back [...] Problem Date Documented Date Episodic/Chronic Mood disorders (20 sources) Mood disorders Onset: 10-10-2023 Resolved: 10-16-2024 10-10-2023 Other ear and sense organ disorders (20 sources) Impacted cerumen of bilateral ears; Translations: [Impacted cerumen, bilateral] Onset: 07-08-2024 07-08-2024 Episodic Other eye disorders (20 sources) Subconjunctival hemorrhage of left eye; Translations: [Conjunctival hemorrhage, left eye] Onset: 04-01-2024 04-01-2024 Episodic Other lower respiratory disease (1 source) Other nonspecific abnormal finding of lung field; Translations: [OTH NONSPECIFIC ABN FIND LNG FIELD] Onset: 12-16-2021 Episodic Spondylosis; intervertebral disc disorders; other back problems (4 sources) Spinal stenosis, lumbar region with neurogenic claudication; Translations: [SPINAL STENOSIS LUMBAR REGION NC] Onset: 06-28-2022 Episodic Unclassified (1 source) LOW BACK PAIN, UNSPECIFIED; Translations: [LOW BACK PAIN, UNSPECIFIED] Onset: 12-10-2021 Results Test Name Value Interpretation Reference Range Facility ALL FOLIC ACIDon 03-25-2025 FOLATE 16.6 ng/mL 8.60 - 58.90 ng/mL [facility] e ALL CBC WITH AUTO DIFFon BASOPHILS ABSOLUTE AUTO 0.1 [facility] Basophils/100 WBC (Bld) 0.7 % 0.2 - 2.0 % [facility] Eosinophils/100 WBC (Bld) 1.7 % 0.9 - 7.0 % [facility] Erythrocyte distribution width (RBC) [Ratio] 13.2 % 11.0 - 15.0 % [facility] Hematocrit (Bld) [Volume fraction] 50.2 % 42.0 - 54.0 % [facility] Hemoglobin (Bld) [Mass/Vol] 17.1 g/dL 14.0 - 18.0 g/dL [facility] IMMATURE GRANULOCYTES ABS AUTO 0.02 [facility] Immature granulocytes/100 WBC (Bld) 0.3 % 0.0 - 0.5 % [facility] Interpretation and review of laboratory results Abnormal [facility] LYMPHOCYTES ABSOLUTE AUTO 1.1 Low [facility] Lymphocytes/100 WBC (Bld) 15.3 % Low 20.5 - 60.0 % [facility] MCH (RBC) [Entitic mass] 32.1 pg 25.9 - 34.0 pg [facility] MCHC (RBC) [Mass/Vol] 34.1 g/dL 29.9 - 35.2 g/dL [facility] MCV (RBC) [Entitic vol] 94.4 fL High 80.0 - 94.0 fL [facility] MONOCYTES ABSOLUTE AUTO 0.6 [facility] Monocytes/100 WBC (Bld) 7.7 % 1.7 - 12.0 % [facility] NEUTROPHILS ABSOLUTE AUTO 5.5 [facility] Neutrophils/100 WBC (Bld) 74.3 % 43.0 - 75.0 % [facility] Platelet mean volume (Bld) [Entitic vol] 9 fL Low 9.5 - 13.5 fL [facility] E[facility] # 0.1 [facility] PLT [facility] RBC 5.32 [facility] WBC 7.4 [facility] CHEST WO CONon 01-08-2025 [place] [address] CT Scan Report Signed Patient: MARTIN DAWN MR#: [id number] : 1950 Acct:[id number] Age/Sex: 74 / M ADM Date: 01/08/25 Loc: CT Attending Dr: Darlene Christensen D.O. Ordering Physician: Darlene Christensen D.O. Date of Service: 01/08/25 Procedure(s): CT chest wo con Accession Number(s): [id number] cc: LINDA DEMPSEY [place] [id number] Patient Name: MARTIN DAWN MRN: [facility]:[id number] date: 1950 Sex: M Assigned Patient Location: CT Current Patient Location: CT Accession/Order Number: [id number] Exam Date: 01/08/2025 18:00 Report Date: 01/08/2025 [...] WALL: No abnormality AXILLA:Unremarkable BONY STRUCTURES thoracic spondylosis/hyperosto sis. UPPER ABDOMEN: Several hepatic cysts. CT/CT chest [...] Tonny Aguilar M.D.01/08/2025 6:07 PM Dictation Location: [place] [address] Electronically authenticated by: [id number] Y Date: 01/08/2025 18:07 Dictated By: Tonny Aguilar D.O. Signed By: 01/08/251809 DD/ 180 TD/TT: Regional Telecommunications Specialist: [facility] Radiology, Radiologist, MD - 01/08/2025 [place] [address] CT Scan Report Signed Patient: MARTIN DAWN MR#: [id number] : 1950 Acct:[id number] Age/Sex: 74 / M ADM Date: 01/08/25 Loc: CT Attending Dr: Darlene Christensen D.O. Ordering Physician: Darlene Christensen D.O. Date of Service: 01/08/25 Procedure(s): CT chest wo con Accession Number(s): [id number] cc: LINDA DEMPSEY [address] [address] Patient Name: MARTIN DAWN MRN: [id number] date: 1950 Sex: M Assigned Patient Location: CT Current Patient Location: CT Accession/Order Number: [id number] Exam Date: 01/08/2025 18:00 Report Date: 01/08/2025 [...] WALL: No abnormality AXILLA:Unremarkable BONY STRUCTURES thoracic spondylosis/hyperosto sis. UPPER ABDOMEN: Several hepatic cysts. CT/CT chest [...] Tonny Aguilar M.D.01/08/2025 6:07 PM Dictation Location: [place] [address] Electronically authenticated by: [id number] Y Date: 01/08/2025 18:07 Dictated By: Tonny Aguilar D.O. Signed By: 01/08/251809 DD/ 06 TD/TT: Regional Telecommunications Specialist: [facility] Radiology Study observation (narrative) [facility] CT CHEST WO CONOrdered By: Yang adiologguera Radiology on 01-08-2025 [facility] [employer] Work Phone: Office Visiton 07-07-2023 Follow-up visit [id number] Padmini Dawnlashanda Soria 1950 M Date Provider Department [facility] Family History Problem Relation Age of Onset No Known Problems Mother No Known Problems Father Family Status - Relation Status Age at Mother Father Level of Service:26207 NE OFFICE/OUTPATIENT ESTABLISHED LOW MDM 20-29 MIN Normal [facility] Office Visiton 01-25-2023 Follow-up visit [id number] Dawn,Martin R 1950 M Date Provider Department [facility] No family history on file Level of Service:49465 NE OFFICE/OUTPATIENT NEW MODERATE MDM 45-59 MINUTES Reason for Visit and Comments: New Patient [632] - Est care- Ongoing SOB and results of heart test Normal [facility] CP ECHO W CONTRASTon 023 CP ECHO W CONTRAST Patient: PADMINI DAWNTHIEN Cortez Exam Date: 11/10/2022 : 1950 Gender:M Ordering : SHAIKH Nathanael CONTRERAS . Admission #: [id number] Family : Order #: [id number] CLICK HERE TO VIEW EXAM ECHOCARDIOGRAM REPORT [...] Paz M.D. on 11/11/2022 at 13:41 Normal [facility] STRESS/REST MULTIon 11-10 NE STRESS/REST MULTI Patient: MARTIN DAWN Exam Date: 11/10/2022 : 1950 Gender:M Ordering : SHAIKH Nathanael CONTRERAS . Admission #: [id number] Family : Order #: [id number] CLICK HERE TO VIEW EXAM RADIOLOGY REPORT [...] study was normal per attending physician Dr. Christensen . For more details please see separate [...] wall motion and ejection fraction. Dictated by: Marshall Davison M.D. on 11/10/2022 at 15:16 Approved by: Marshall Davison M.D. on 11/10/2022 at 15:21 Normal [facility] BNPon 11-02-2022 Natriuretic peptide B (Bld) [Mass/Vol] 122.0 pg/mL Normal <=900.0 [facility] Comment on above: Performed By: #### C MP #### [facility] [address] [place] [address] Dr. Radha Gomez CBC AUTO DIFFon 11-02-2022 BASO # 0.1 103/ul Normal 0.0-0.1 [facility] Comment on above: Performed By: #### C MP #### [facility] [address] [place] [address] Dr. Radha Gomez Basophils/100 WBC (Bld) 0.8 % Normal 0.2-2.0 [facility] Comment on above: Performed By: #### C MP #### [facility] [address] [place] [address] Dr. Radha Gomez EO # 0.1 103/ul Normal 0.0-0.7 [facility] Comment on above: Performed By: #### C MP #### [facility] [address] [place] [address] Dr. Radha Gomez Eosinophils/100 WBC (Bld) 1.9 % Normal 0.9-7.0 [facility] Comment on above: Performed By: #### C MP #### [facility] [address] [place] [address] Dr. Radha Gomez Erythrocyte distribution width (RBC) [Ratio] 12.7 % Normal 11.0-15.0 [facility] Comment on above: Performed By: #### C MP #### [facility] [address] [place] [address] Dr. Radha Gomez Hematocrit (Bld) [Volume fraction] 49.8 % Normal 42.0-54.0 [facility] Comment on above: Performed By: #### C MP #### [facility] [address] [place] [address] Dr. Radha Gomez Hemoglobin (Bld) [Mass/Vol] 16.9 g/dL Normal 14.0-18.0 [facility] Comment on above: Performed By: #### C MP #### [facility] [address] [place] [address] Dr. Radha Gomez IG # 0.02 10e3/ul Normal 0.00-0.03 [facility] Comment on above: Performed By: #### C MP #### [facility] [address] [place] [address] Dr. Radha Gomez IG % 0.3 % Normal 0.0-0.5 [facility] Comment on above: Performed By: #### C MP #### [facility] [address] [place] [address] Dr. Radha Gomez LYMPH # 1.4 103/ul Normal 1.2-3.8 [facility] Comment on above: Performed By: #### C MP #### [facility] [address] [place] [address] Dr. Radha Gomez Lymphocytes/100 WBC (Bld) 19.3 % Critically low 20.5-60.0 [facility] Comment on above: Performed By: #### C MP #### [facility] [address] [place] [address] Dr. Radha Gomez MANUAL DIFF REQ NO Normal [facility] Comment on above: Performed By: #### C MP #### [facility] [address] [place] [address] Dr. Radha Gomez MCH (RBC) [Entitic mass] 31.9 pg Normal 25.9-34.0 [facility] Comment on above: Performed By: #### C MP #### [facility] [address] [place] [address] Dr. Radha Gomez MCHC (RBC) [Mass/Vol] 33.9 g/dL Normal 29.9-35.2 [facility] Comment on above: Performed By: #### C MP #### [facility] [address] [place] [address] Dr. Radha Gomez MCV (RBC) [Entitic vol] 94.0 fL Normal 80.0-94.0 [facility] Comment on above: Performed By: #### C MP #### [facility] [address] [place] [address] Dr. Radha Gomez MONO # 0.7 103/ul Normal 0.3-0.8 [facility] Comment on above: Performed By: #### C MP #### [facility] [address] [place] [address] Dr. Radha Gomez Monocytes/100 WBC (Bld) 9.5 % Normal 1.7-12.0 [facility] Comment on above: Performed By: #### C MP #### [facility] [address] [place] [address] Dr. Radha Gomez NEUT # 5.0 103/ul Normal 1.4-6.5 [facility] Comment on above: Performed By: #### C MP #### [facility] [address] [place] [address] Dr. Radha Gomez Neutrophils/100 WBC (Bld) 68.2 % Normal 43.0-75.0 [facility] Comment on above: Performed By: #### C MP #### [facility] [address] [place] [address] Dr. Radha Gomez Platelet mean volume (Bld) [Entitic vol] 9.0 fL Critically low 9.5-13.5 [facility] Comment on above: Performed By: #### C MP #### [facility] [address] [place] [address] Dr. Radha Gomez PLT 183 103/ul Normal 150-450 [facility] Comment on above: Performed By: #### C MP #### [facility] [address] [place] [address] [address] Radha Gomez RBC 5.30 106/ul Normal 4.70-6.10 [facility] Comment on above: Performed By: #### C MP #### [facility] [address] [place] [address] [address] Radha Gomez WBC 7.3 103/ul Normal 4.0-11.0 [facility] Comment on above: Performed By: #### C MP #### [facility] [address] [place] [address] [address] Radha Gomez PROF CHEM 8 (BAS METB)on Anion gap [Moles/Vol] 11.7 mmol/L Normal [facility] Comment on above: Performed By: #### C MP #### [facility] [address] [place] [address] Dr. Radha Gomez Calcium [Mass/Vol] 9.5 mg/dL Normal 8.5-10.1 [facility] Comment on above: Performed By: #### C MP #### [facility] [address] [place] [address] Dr. Radha Gomez Chloride [Moles/Vol] 105 mmol/L Normal 98-107 [facility] Comment on above: Performed By: #### C MP #### [facility] [address] [place] [address] [address] Radha Gomez CO2 [Moles/Vol] 27.5 mmol/L Normal 21.0-32.0 [facility] Comment on above: Performed By: #### C MP #### [facility] [address] [place] [address] Dr. Radha Gomez Creatinine [Mass/Vol] 1.35 mg/dL Critically high 0.70-1.30 [facility] Comment on above: Performed By: #### C MP #### [facility] [address] [place] [address] Dr. Radha Gomez EGFR-AF PANAMANIAN >60 Normal >=60 [facility] Comment on above: Performed By: #### C MP #### [facility] [address] [place] [address] [address] Radha Gomez EGFR-NON AF PANAMANIAN 52 mL/min/1.73m2 Critically low >=60 [facility] Comment on above: Performed By: #### C MP #### [facility] [address] [place] [id number] Radha Gomez Glucose [Mass/Vol] 88 mg/dL Normal 74-106 [facility] Comment on above: Performed By: #### C MP #### [facility] [address] [place] [address] [address] Radha Gomez Potassium [Moles/Vol] 4.2 mmol/L Normal 3.5-5.1 [facility] Comment on above: Performed By: #### C MP #### [facility] [address] [place] [address] [address] Radha Gomez Sodium [Moles/Vol] 140 mmol/L Normal 136-145 [facility] Comment on above: Performed By: #### C MP #### [facility] [address] [place] [address] [address] Radha Gomez Urea nitrogen [Mass/Vol] 19.0 mg/dL Critically high 7.0-18.0 [facility] Comment on above: Performed By: #### C MP #### [facility] [address] [place] [address] [address] Radha Gomez Urea nitrogen/Creatinine [Mass ratio] 14.1 mg/mg Normal [facility] Comment on above: Performed By: #### C MP #### [facility] [address] [place] [id number] Radha Gomez XR CHEST 2 Von [...] by: YANDY PÉREZ Date: 2022-11-02 08:42 Normal [facility] XR LSPINE 2_3 VIEWSon 2021 XR LSPINE [...] by: YANDY MALONEY Date: 2022-06-21 15:47 Normal [facility] CT CHEST WO CONon 02-22-2022 CT CHEST [...] YANDY MALONEY Date: 2022-02-22 13:27 Normal [facility] CBC AUTO DIFFon 12-10-2021 BASO # 0.1 103/ul Normal 0.0-0.1 [facility] Comment on above: Performed By: #### C BC #### [facility] [address] [place] [address] Dr. Radha Gomez Basophils/100 WBC (Bld) 0.6 % Normal 0.2-2.0 [facility] Comment on above: Performed By: #### C BC #### [facility] [address] [place] [address] Dr. Radha Gomez EO # 0.3 103/ul Normal 0.0-0.7 [facility] Comment on above: Performed By: #### C BC #### [facility] [address] [place] [address] Dr. Radha Gomez Eosinophils/100 WBC (Bld) 3.1 % Normal 0.9-7.0 [facility] Comment on above: Performed By: #### C BC #### [facility] [address] [place] [address] Dr. Radha Gomez Erythrocyte distribution width (RBC) [Ratio] 12.8 % Normal 11.0-15.0 [facility] Comment on above: Performed By: #### C BC #### [facility] [address] [place] [address] Dr. Radha Gomez Hematocrit (Bld) [Volume fraction] 50.9 % Normal 42.0-54.0 [facility] Comment on above: Performed By: #### C BC #### [facility] [address] [place] [address] Dr. Radha Gomez Hemoglobin (Bld) [Mass/Vol] 17.3 g/dL Normal 14.0-18.0 [facility] Comment on above: Performed By: #### C BC #### [facility] [address] [place] [address] Dr. Radha Gomez IG # 0.02 10e3/ul Normal 0.00-0.03 [facility] Comment on above: Performed By: #### C BC #### [facility] [address] [place] [address] Dr. Radha Gomez IG % 0.3 % Normal 0.0-0.5 [facility] Comment on above: Performed By: #### C BC #### [facility] [address] [place] [address] Dr. Radha Gomez LYMPH # 1.4 103/ul Normal 1.2-3.8 [facility] Comment on above: Performed By: #### C BC #### [facility] [address] [place] [address] Dr. Radha Gomez Lymphocytes/100 WBC (Bld) 18.0 % Critically low 20.5-60.0 [facility] Comment on above: Performed By: #### C BC #### [facility] [address] [place] [address] Dr. Radha Gomez MANUAL DIFF REQ NO Normal [facility] Comment on above: Performed By: #### C BC #### [facility] [address] [place] [address] Dr. Radha Gomez MCH (RBC) [Entitic mass] 31.3 pg Normal 25.9-34.0 [facility] Comment on above: Performed By: #### C BC #### [facility] [address] [place] [address] Dr. Radha Gomez MCHC (RBC) [Mass/Vol] 34.0 g/dL Normal 29.9-35.2 [facility] Comment on above: Performed By: #### C BC #### [facility] [address] [place] [address] Dr. Radha Gomez MCV (RBC) [Entitic vol] 92.0 fL Normal 80.0-94.0 [facility] Comment on above: Performed By: #### C BC #### [facility] [address] [place] [address] Dr. Radha Gomez MONO # 0.7 103/ul Normal 0.3-0.8 [facility] Comment on above: Performed By: #### C BC #### [facility] [address] [place] [address] Dr. Radha Gomez Monocytes/100 WBC (Bld) 8.3 % Normal 1.7-12.0 [facility] Comment on above: Performed By: #### C BC #### [facility] [address] [place] [address] Dr. Radha Gomez NEUT # 5.5 103/ul Normal 1.4-6.5 [facility] Comment on above: Performed By: #### C BC #### [facility] [address] [place] [address] Dr. Radha Gomez Neutrophils/100 WBC (Bld) 69.7 % Normal 43.0-75.0 [facility] Comment on above: Performed By: #### C BC #### [facility] [address] [place] [address] Dr. Radha Gomez Platelet mean volume (Bld) [Entitic vol] 9.3 fL Critically low 9.5-13.5 [facility] Comment on above: Performed By: #### C BC #### [facility] [address] [place] [address] Dr. Radha Gomez PLT 168 103/ul Normal 150-450 [facility] Comment on above: Performed By: #### C BC #### [facility] [address] [place] [address] Dr. Radha Gomez RBC 5.53 106/ul Normal 4.70-6.10 [facility] Comment on above: Performed By: #### C BC #### [facility] [address] [place] [address] Dr. Radha Gomez WBC 7.9 103/ul Normal 4.0-11.0 [facility] Comment on above: Performed By: #### C BC #### [facility] [address] [place] [address] LUNG CANCER SCREENINGon [...] document resolution versus stability. Electronically authenticated by: MARSHALL DAVISON Date: 2021-12-10 11:08 Normal [facility] PROF 14(COMP METB)on 022 Albumin [Mass/Vol] 3.7 g/dL Normal 3.5-5.0 [facility] Comment on above: Performed By: #### C MP #### [facility] [address] [address] [address] Radha Gomez Albumin/Globulin [Mass ratio] 1.1 {ratio} Normal [facility] Comment on above: Performed By: #### C MP #### [facility] [address] [address] [address] Radha Gomez ALP [Catalytic activity/Vol] 92 U/L Normal 38-126 [facility] Comment on above: Performed By: #### C MP #### [facility] [address] [place] [address] Dr. Radha Gomez ALT [Catalytic activity/Vol] 26 U/L Normal 21-72 [facility] Comment on above: Performed By: #### C MP #### [facility] [address] [place] [address] Dr. Radha Gomez Anion gap [Moles/Vol] 13.0 mmol/L Normal [facility] Comment on above: Performed By: #### C MP #### [facility] [address] [place] [address] Dr. Radha Gomez AST [Catalytic activity/Vol] 20 U/L Normal 17-59 [facility] Comment on above: Performed By: #### C MP #### [facility] [address] [place] [address] Dr. Radha Gomez Bilirubin [Mass/Vol] 1.1 mg/dL Normal 0.2-1.3 [facility] Comment on above: Performed By: #### C MP #### [facility] [address] [place] [address] Dr. Radha Gomez Calcium [Mass/Vol] 9.3 mg/dL Normal 8.4-10.2 [facility] Comment on above: Performed By: #### C MP #### [facility] [address] [place] [address] Dr. Radha Gomez Chloride [Moles/Vol] 106 mmol/L Normal 98-107 [facility] Comment on above: Performed By: #### C MP #### [facility] [address] [place] [address] Dr. Radha Gomez CO2 [Moles/Vol] 23.4 mmol/L Normal 22.0-30.0 [facility] Comment on above: Performed By: #### C MP #### [facility] [address] [place] [address] Dr. Radha Gomez Creatinine [Mass/Vol] 1.39 mg/dL Critically high 0.66-1.25 [facility] Comment on above: Performed By: #### C MP #### [facility] [address] [address] [address] Radha Gomez EGFR-AF PANAMANIAN >60 Normal >=60 [facility] Comment on above: Performed By: #### C MP #### [facility] [address] [address] [address] Radha Gomez EGFR-NON AF PANAMANIAN 51 mL/min/1.73m2 Critically low >=60 [facility] Comment on above: Performed By: #### C MP #### [facility] [address] [address] [address] Radha Gomez Globulin (S) [Mass/Vol] 3.4 g/dL Normal [facility] Comment on above: Performed By: #### C MP #### [facility] [address] [address] [address] Radha Gomez Glucose [Mass/Vol] 94 mg/dL Normal 74-106 [facility] Comment on above: Performed By: #### C MP #### [facility] [address] [address] [address] Radha Gomez Potassium [Moles/Vol] 4.4 mmol/L Normal 3.4-5.0 [facility] Comment on above: Performed By: #### C MP #### [facility] [address] [address] [address] Radha Gomez Protein [Mass/Vol] 7.1 g/dL Normal 6.1-8.2 [facility] [place] Comment on above: Performed By: #### C MP #### [facility] [address] [address] [address] Radha Gomez Sodium [Moles/Vol] 138 mmol/L Normal 137-145 [facility] [place] Comment on above: Performed By: #### C MP #### [facility] [address] [address] [address] Radha Gomez Urea nitrogen [Mass/Vol] 23.0 mg/dL Critically high 9.0-20.0 [facility] Comment on above: Performed By: #### C MP #### [facility] [address] [address] [address] Radha Gomez Urea nitrogen/Creatinine [Mass ratio] 16.5 mg/mg Normal [facility] Comment on above: Performed By: #### C MP #### [facility] [address] [address] [address] Radha Gomez XR LSPINE 2_3 VIEWSon [...] abnormality. No comparison studies. Electronically authenticated by: MARSHALL DAVISON Date: 2021-12-10 11:13 Normal [facility] Vital Signs Date Time Vital Sign Value Performing Clinician Facility 03-11-2025 13:49-0400 Body mass index (BMI) [Ratio] 28.62 kg/m2 Darlene De Souza [employer] ATTENDANT Work Phone: [facility] 03-11-2025 13:49-0400 Body temperature 98.49 [degF] Darlene Nolvia [employer] ATTENDANT Work Phone: [facility] 03-11-2025 13:49-0400 Body weight 95.71 kg Darlene De Souza [employer] ATTENDANT Work Phone: [facility] 03-11-2025 13:49-0400 Diastolic blood pressure 80 mm[Hg] Darlene De Souza [employer] ATTENDANT Work Phone: [facility] 03-11-2025 13:49-0400 Heart rate 68 /min Darlene De Souza [employer] ATTENDANT Work Phone: [facility] 03-11-2025 13:49-0400 Respiratory rate 20 /min Darlene De Souza [employer] ATTENDANT Work Phone: [facility] 03-11-2025 13:49-0400 SaO2% (BldA) [Mass fraction] 90 % Darlene De Souza [employer] ATTENDANT Work Phone: [facility] 03-11-2025 13:49-0400 Systolic blood pressure 118 mm[Hg] Darlene De Souza [employer] ATTENDANT Work Phone: [facility] 03-05-2025 13:46-0400 Body height 182.9 cm Alonso Hien DO Work Phone: [facility] 03-05-2025 13:46-0400 Body mass index (BMI) [Ratio] 28.35 kg/m2 Alonso Hien DO Work Phone: [facility] 03-05-2025 13:46-0400 Body weight 94.8 kg Alonso Hien DO Work Phone: [facility] 03-05-2025 13:46-0400 Diastolic blood pressure 84 mm[Hg] Alonso Hien DO Work Phone: [facility] 03-05-2025 13:46-0400 Heart rate 85 /min Alonso Hien DO Work Phone: [facility] 03-05-2025 13:46-0400 SaO2% (BldA) [Mass fraction] 93 % Alonso Hien DO Work Phone: [facility] 03-05-2025 13:46-0400 Systolic blood pressure 126 mm[Hg] Alonso Hien DO Work Phone: [facility] 01-23-2025 13:43-0400 Body height 185.4 cm Saul Pérez DPM Work Phone: [facility] 01-23-2025 13:43-0400 Body mass index (BMI) [Ratio] 27.57 kg/m2 Saul Pérez DPM Work Phone: [facility] 01-23-2025 13:43-0400 Body weight 94.8 kg Saul Pérez DPM Work Phone: [facility] 01-23-2025 13:43-0400 Diastolic blood pressure 88 mm[Hg] Saul Pérez DPM Work Phone: [facility] 01-23-2025 13:43-0400 Heart rate 70 /min Saul Pérez DPM Work Phone: [facility] 01-23-2025 13:43-0400 Systolic blood pressure 138 mm[Hg] Saul Pérez DPM Work Phone: [facility] 01-06-2025 13:16-0400 Body height 185.4 cm Darlene Aichholz [employer] ATTENDANT Work Phone: [facility] 01-06-2025 13:16-0400 Body mass index (BMI) [Ratio] 27.57 kg/m2 Darlene Aichholz [employer] ATTENDANT Work Phone: [facility] 01-06-2025 13:16-0400 Body temperature 97.81 [degF] Darlene Aichholz [employer] ATTENDANT Work Phone: [facility] 01-06-2025 13:16-0400 Body weight 94.8 kg Darlene Aichholz [employer] ATTENDANT Work Phone: [facility] 01-06-2025 13:16-0400 Diastolic blood pressure 88 mm[Hg] Darlene Aichholz [employer]AMP[employer] ATTENDANT Work Phone: [facility] 01-06-2025 13:16-0400 Heart rate 70 /min Darlene Aichholz [employer] ATTENDANT Work Phone: [facility] 01-06-2025 13:16-0400 Respiratory rate 19 /min Darlene Aichholz [employer] ATTENDANT Work Phone: [facility] 01-06-2025 13:16-0400 SaO2% (BldA) [Mass fraction] 90 % Darlene Aichholz [employer] ATTENDANT Work Phone: [facility] 01-06-2025 13:16-0400 Systolic blood pressure 138 mm[Hg] Darlene Aichholz [employer] ATTENDANT Work Phone: [facility] 10-31-2024 09:17-0500 Body height 185.4 cm Saul Pérez DPM Work Phone: [facility] 10-31-2024 09:17-0500 Body mass index (BMI) [Ratio] 28.5 kg/m2 Saul Pérez DPM Work Phone: [facility] 10-31-2024 09:17-0500 Body weight 97.98 kg Saul Pérez DPM Work Phone: [facility] 10-31-2024 09:17-0500 Respiratory rate 18 /min Saulreza Pérez DPM Work Phone: [facility] 10-16-2024 09:48-0500 Body height 185.4 cm Linda Dempsey [employer] ATTENDANT Work Phone: [facility] 10-16-2024 09:48-0500 Body mass index (BMI) [Ratio] 28.5 kg/m2 Linda Dempsey [employer] ATTENDANT Work Phone: [facility] 10-16-2024 09:48-0500 Body temperature 97.59 [degF] Linda Dempsey [employer] ATTENDANT Work Phone: [facility] 10-16-2024 09:48-0500 Body weight 97.98 kg Linda Dempsey [employer] ATTENDANT Work Phone: [facility] 10-16-2024 09:48-0500 Diastolic blood pressure 86 mm[Hg] Linda Dempsey [employer] ATTENDANT Work Phone: [facility] 10-16-2024 09:48-0500 Heart rate 97 /min Linda Dempsey [employer] ATTENDANT Work Phone: [facility] 10-16-2024 09:48-0500 Respiratory rate 18 /min Linda Dempsey [employer] ATTENDANT Work Phone: [facility] 10-16-2024 09:48-0500 SaO2% (BldA) [Mass fraction] 93 % Linda Dempsey [employer] ATTENDANT Work Phone: [facility] 10-16-2024 09:48-0500 Systolic blood pressure 120 mm[Hg] Linda Dempsey [employer] ATTENDANT Work Phone: [facility] 08-22-2024 09:34-0400 Body height 185.4 cm Saul Pérez DPM Work Phone: [facility] 08-22-2024 09:34-0400 Body mass index (BMI) [Ratio] 27.71 kg/m2 Saul Pérez DPM Work Phone: [facility] 08-22-2024 09:34-0400 Body weight 95.25 kg Saul Pérez DPM Work Phone: [facility] 08-22-2024 09:34-0400 Diastolic blood pressure 80 mm[Hg] Saul Pérez DPM Work Phone: [facility] 08-22-2024 09:34-0400 Heart rate 88 /min Saul Pérez DPM Work Phone: [facility] 08-22-2024 09:34-0400 Systolic blood pressure 126 mm[Hg] Saul Pérez DPM Work Phone: [facility] 07-08-2024 10:08-0400 Body height 185.4 cm Linda Dempsey [employer] ATTENDANT Work Phone: [facility] 07-08-2024 10:08-0400 Body mass index (BMI) [Ratio] 27.71 kg/m2 Linda Dempsey [employer] ATTENDANT Work Phone: [facility] 07-08-2024 10:08-0400 Body temperature 97.81 [degF] Linda Dempsey [employer] ATTENDANT Work Phone: [facility] 07-08-2024 10:08-0400 Body weight 95.25 kg Linda Dempsey [employer] ATTENDANT Work Phone: [facility] 07-08-2024 10:08-0400 Diastolic blood pressure 86 mm[Hg] Linda Yoderpatrick [employer] ATTENDANT Work Phone: [facility] 07-08-2024 10:08-0400 Heart rate 77 /min Linda Yoderpatrick [employer] ATTENDANT Work Phone: [facility] Comment on above: 96% O2 07-08-2024 10:08-0400 Systolic blood pressure 136 mm[Hg] Linda Yoderpatrick [employer] ATTENDANT Work Phone: [facility] 06-17-2022 10:30-0400 Body height 185.42 cm Rowena Yancy Other [employer] Other 06-17-2022 10:30-0400 Body mass index (BMI) [Ratio] 28.36 kg/m2 Rowena Haines Other [employer] Other 06-17-2022 10:30-0400 Body temperature 97.7 [degF] Rowena Yancy Other [employer] Other 06-17-2022 10:30-0400 Body weight 97.52 kg Rowena Yancy Other [employer] Other 06-17-2022 10:30-0400 Diastolic blood pressure 93 mm[Hg] Rowena Haines Other [employer] Other 06-17-2022 10:30-0400 Respiratory rate 18 /min Rowena Haines Other [employer] Other 06-17-2022 10:30-0400 SaO2% (BldA) [Mass fraction] 95 % Rowena Haines Other [employer] Other 06-17-2022 10:30-0400 Systolic blood pressure 135 mm[Hg] Rowena Haines Other [employer] Other 03-08-2022 11:20-0400 Body height 185.42 cm Azrafi Carrillos Other [employer] Other 03-08-2022 11:20-0400 Body mass index (BMI) [Ratio] 28.6 kg/m2 Azrafi Bakhous Other [employer] Other 03-08-2022 11:20-0400 Body temperature 97.9 [degF] Azrafi Bakstans Other [employer] Other 03-08-2022 11:20-0400 Body weight 98.34 kg Aziz Bakhous Other [employer] Other 03-08-2022 11:20-0400 Diastolic blood pressure 90 mm[Hg] Aziz Bakhous Other [employer] Other 03-08-2022 11:20-0400 Respiratory rate 20 /min Aziz Bakhous Other [employer] Other 03-08-2022 11:20-0400 SaO2% (BldA) [Mass fraction] 90 % Aziz Bakhous Other [employer] Other 03-08-2022 11:20-0400 Systolic blood pressure 130 mm[Hg] Aziz Bakhous Other [employer] Other Encounters Encounter Date Encounter Type Care Provider Facility Start: 03-25-2025 End: 03-25-2025 Clinisync Result Encounter Alonso Adams DO Work Phone: [facility] Unsolicited Start: 03-25-2025 End: 03-25-2025 Clinisync Result Encounter Alonso Adams DO Work Phone: [facility] Unsolicited Start: 03-25-2025 End: 03-25-2025 Refill Darlene De Souza [employer] ATTENDANT Work Phone: [facility] Comment on above: Pulmonary emphysema, unspecified emphysema type (CMS/HCC) (Primary Dx) Start: 03-11-2025 End: 03-11-2025 Bamboo flowsheet Darlene De Souza [employer] ATTENDANT Work Phone: [facility] Start: 03-11-2025 End: 03-11-2025 Bamboo flowsheet Darlenekhris De Souza [employer] ATTENDANT Work Phone: [facility] Start: 03-11-2025 End: 03-11-2025 Office outpatient visit 15 minutes Darlene De Souza [employer] ATTENDANT Work Phone: [facility] Comment on above: Tremor (Primary Dx); Impacted cerumen of both ears; Chronic kidney disease, stage 3a (HCC) (CMS/HCC); Vitamin D deficiency; Vitamin B12 deficiency Start: 03-11-2025 End: 03-11-2025 ambulatory DARLENE NOLVIA Not Available Start: 03-05-2025 End: 03-05-2025 Bamboo flowsheet Alonso Adams DO Work Phone: [facility] Start: 03-05-2025 End: 03-05-2025 Bamboo flowsheet Alonso Adams DO Work Phone: [facility] Start: 03-05-2025 End: 03-05-2025 Office outpatient new 45 minutes Alonso Adams DO Work Phone: [facility] Comment on above: Essential tremor (Pr imary Dx); Idiopathic peripheral neuropathy; Numbness and tingling; Vitamin B12 deficiency; Tremor Start: 03-05-2025 End: 03-05-2025 ambulatory ALONSO ADAMS Not Available Start: 02-27-2025 End: 02-27-2025 Clinisync Result Encounter Darlene Nolvia JUARES Work Phone: [facility] Unsolicited Start: 02-27-2025 End: 02-27-2025 Clinisync Result Encounter Darlene Matiasmiguel ángel [employer] ATTENDANT Work Phone: [facility] Unsolicited Start: 02-27-2025 End: 02-27-2025 Refill Darlene Matiasmiguel ángel [employer] ATTENDANT Work Phone: [facility] Comment on above: Vitamin D deficiency (Primary Dx) Start: 01-23-2025 End: 01-23-2025 Bamboo flowsheet Saul Pérez DPM Work Phone: [facility] Start: 01-23-2025 End: 01-23-2025 Bamboo flowsheet Saul Pérez DPM Work Phone: [facility] Start: 01-23-2025 End: 01-23-2025 Patient encounter procedure Saul Pérez DPM Work Phone: [facility] Comment on above: Pain due to onychomy cosis of toenails of both feet (Primary Dx); Venous insufficiency Start: 01-23-2025 End: 01-23-2025 ambulatory SAUL PÉREZ Not Available Start: 01-08-2025 End: 01-08-2025 Clinisync Result Encounter Generic External Data Provider [facility] Unsolicited Start: 01-08-2025 End: 01-08-2025 Clinisync Result Encounter Generic External Data Provider [facility] Unsolicited Start: 01-06-2025 End: 01-06-2025 Office outpatient visit 25 minutes Darlene De Souza [employer] ATTENDANT Work Phone: [facility] Comment on above: Screening for prosta te cancer (Primary Dx); Centrilobular emphysema (CMS/HCC); Chronic respiratory failure with hypoxia (CMS/HCC); Chronic kidney disease, stage 3a (HCC) (CMS/HCC); Bronchiectasis, uncomplicated (CMS/HCC); Myalgia; Tremor; Impacted cerumen of both ears Start: 01-06-2025 End: 01-06-2025 ambulatory DARLENE DE SOUZA Not Available Start: 10-31-2024 End: 10-31-2024 Bamboo flowsheet Saul Pérez DPM Work Phone: [facility] Start: 10-31-2024 End: 10-31-2024 Bamboo flowsheet Saul Pérez DPM Work Phone: [facility] Start: 10-31-2024 End: 10-31-2024 Patient encounter procedure Saul Pérez DPM Work Phone: [facility] Comment on above: Pain due to onychomy cosis of toenails of both feet (Primary Dx); Venous insufficiency Start: 10-31-2024 End: 10-31-2024 ambulatory SAUL PÉREZ Not Available Start: 10-16-2024 End: 10-16-2024 Bamboo flowsheet Linda Dempsey [employer] ATTENDANT Work Phone: [facility] Start: 10-16-2024 End: 10-16-2024 Bamboo flowsheet Linda Dempsey [employer] ATTENDANT Work Phone: [facility] Start: 10-16-2024 End: 10-16-2024 Patient encounter procedure Linda Dempsey [employer] ATTENDANT Work Phone: [facility] Comment on above: Encounter for Med[employer] annual wellness exam (Primary Dx) Start: 10-16-2024 End: 10-16-2024 ambulatory LINDA DEMPSEY Not Available Start: 08-22-2024 End: 08-22-2024 Bamboo flowsheet Saul [...] PÉREZ Not Available Start: 07-08-2024 End: 07-08-2024 Bamboo flowsheet Linda Aamndatrick [employer] ATTENDANT Work Phone: [facility] Start: 07-08-2024 End: 07-08-2024 Bamboo flowsheet Linda Amandatrick [employer] ATTENDANT Work Phone: [facility] Start: 07-08-2024 End: 07-08-2024 Office outpatient visit 15 minutes Linda Dempsey [employer] ATTENDANT Work Phone: [facility] Comment on above: Pulmonary emphysema, unspecified emphysema type (CMS/HCC) (Primary Dx); Stage 3a chronic kidney disease (HCC) (CMS/HCC); Impacted cerumen of both ears Start: 07-08-2024 End: 07-08-2024 ambulatory LINDA DEMPSEY Not Available Start: 06-13-2024 End: 06-13-2024 ambulatory SAUL PÉREZ Not Available Start: 04-24-2024 End: 04-24-2024 ambulatory SHAIKH DIANE Not Available Start: 04-01-2024 End: 04-01-2024 ambulatory SHAIKH DIANE Not Available Start: 03-28-2024 End: 03-28-2024 ambulatory SAUL PÉREZ Not Available Start: 10-10-2023 Patient encounter procedure Linda Dempsey [employer] ATTENDANT Work Phone: [facility] Start: 07-07-2023 End: 07-07-2023 ambulatory [facility] Start: 01-25-2023 End: 01-25-2023 ambulatory [facility] Start: 11-10-2022 End: 11-11-[address] MARSHALL DAVISON Facility:[facility] Start: 11-02-2022 End: 11-03-2022 ambulatory YANDY PÉREZ Facility:[facility] Start: 06-28-2022 End: 07-22-2022 ambulatory Bobby DIANE Facility:[facility] Start: 06-21-2022 End: 06-22-2022 ambulatory BARKER H DIANE Facility:[facility] Start: 06-17-2022 End: 06-17-2022 ambulatory Rowena Haines Other [employer] Other Start: 06-17-2022 Office outpatient vi sit 15 minutes Rowena Yancy [facility] Start: 03-08-2022 End: 03-08-2022 ambulatory Aziz Bakhous Other [employer] Other Start: 03-08-2022 Office outpatient ne w 30 minutes Aziz Bakhous [facility] Start: 02-22-2022 End: 02-23-2022 ambulatory Bobby DIANE Facility:[facility] Start: 12-10-2021 End: 12-11-2021 ambulatory RICHELLE Yang AUDI Facility:[facility] Start: 02-27-2018 End: 02-28-2018 Ambulatory DEFAULT PHYSICIAN Facility:[facility] Procedures Date Procedure Procedure Detail Performing Clinician Start: 03-25-2025 ALL FOLIC ACID Alonso abdul DO Work Phone: Start: 02-27-2025 ALL CBC WITH AUTO DIFF Darlene Nolvia [employer]AMP[employer] ATTENDANT Work Phone: Start: 01-08-2025 CT CHEST WO CON Generic External Data Provider Start: 10-30-2017 Colonoscopy Linda rosario [employer]AMP[employer] ATTENDANT Work Phone: Plan of Treatment Date Care Activity Detail Author Start: 10-30-2027 Screening for malign ant neoplasm of colon [facility] Start: 10-16-2025 Medicare Annual Well ness (AWV) Medicare Annual Wellness (AWV) [facility] Start: 06-11-2025 End: 06-11-2025 Patient encounter procedure 06/11/2025 1:00 PM EDT Office Visit [facility] [address] [place] [address] Darlene De Souza NP [address] [place] [address] [facility] Start: 05-27-2025 End: 05-27-2025 Patient encounter procedure 05/27/2025 2:40 PM EDT Office Visit JOSEF RO [address] [place] [phone] Katy Floyd NP [address] [place], [place] [facility]U[place]EZ[place] Start: 04-21-2025 End: 04-21-2025 Patient encounter procedure 04/21/2025 10:30 AM EDT Procedure Visit JOSEF MONTIEL [address] [place] [phone] Alonso Adams DO [address] [place] [address] [facility]INESH Start: 04-03-2025 End: 04-03-2025 Patient encounter procedure 04/03/2025 3:00 PM EDT Procedure Visit [facility] [address] [facility] [address] [place] [phone] Saul Pérez DPM [address] [facility] [address] [place], [place] [id number] [facility] Start: 03-11-2025 End: 03-11-2025 Patient encounter procedure [facility] Comment on above: Tremor (Primary Dx); Impacted cerumen of both ears Start: 03-05-2025 End: 03-05-2026 EMG 2 Extremities EMG 2 Extremities Neurology Routine Idiopathic peripheral neuropathy Expected: 03/05/2025 (Approximate), Expires: 03/05/2026 [facility] Comment on above: Expected: 03/05/2025 (Approximate), Expires: 03/05/2026 Start: 03-05-2025 End: 03-05-2026 Folate [Mass/volume] in Serum or Plasma Folate Lab Routine Idiopathic peripheral neuropathy Expected: 03/05/2025 (Approximate), Expires: 03/05/2026 [facility] Work Phone: Comment on above: Expected: 03/05/2025 (Approximate), Expires: 03/05/2026 Start: 03-05-2025 End: 03-05-2026 NVC 9-10 Nerves NVC 9-10 Nerves Neurology Routine Idiopathic peripheral neuropathy Expected: 03/05/2025 (Approximate), Expires: 03/05/2026 [facility] Comment on above: Expected: 03/05/2025 (Approximate), Expires: 03/05/2026 Start: 03-05-2025 End: 03-05-2025 Patient encounter procedure [facility] Comment on above: Tremor Start: 03-05-2025 End: 03-05-2026 Protein electrophoresis, serum Protein electrophoresis, serum Lab Routine Idiopathic peripheral neuropathy Expected: 03/05/2025 (Approximate), Expires: 03/05/2026 [facility] Comment on above: Expected: 03/05/2025 (Approximate), Expires: 03/05/2026 Start: 01-23-2025 End: 01-23-2025 Patient encounter procedure [facility] Comment on above: Pain due to onychomy cosis of toenails of both feet (Primary Dx); Venous insufficiency Start: 01-16-2025 End: 01-16-2025 Patient encounter procedure 01/16/2025 9:40 AM EDT Procedure Visit [facility] [address] [facility] [address] [place] [address] Saul Pérez DPAdan [address] [facility] [address] [place] [address] [facility] Start: 01-06-2025 End: 03-10-2026 25-hydroxyvitamin D3 [Mass/volume] in Serum or Plasma Vitamin D 25 hydroxy Lab Routine Chronic kidney disease, stage 3a (HCC) (CMS/HCC) Expected: 01/06/2025 (Approximate), Expires: 01/06/2026 [facility] Comment on above: Expected: 01/06/2025 (Approximate), Expires: 01/06/2026 Start: 01-06-2025 End: 01-06-2026 CBC W Auto Differential panel - Blood CBC and differential Lab Routine Centrilobular emphysema (CMS/HCC) Chronic respiratory failure with hypoxia (CMS/HCC) Chronic kidney disease, stage 3a (HCC) (CMS/HCC) Expected: 01/06/2025 (Approximate), Expires: 01/06/2026 [facility] Work Phone: Comment on above: Expected: 01/06/2025 (Approximate), Expires: 01/06/2026 Start: 01-06-2025 End: 01-06-2026 Cobalamin (Vitamin B12) [Mass/volume] in Serum or Plasma Vitamin B12 Lab Routine Tremor Expected: 01/06/2025 (Approximate), Expires: 01/06/2026 [facility] Comment on above: Expected: 01/06/2025 (Approximate), Expires: 01/06/2026 Start: 01-06-2025 End: 01-06-2026 Comprehensive metabolic 2000 panel - Serum or Plasma Comprehensive metabolic panel Lab Routine Chronic kidney disease, stage 3a (HCC) (CMS/HCC) Expected: 01/06/2025 (Approximate), Expires: 01/06/2026 [facility] Comment on above: Expected: 01/06/2025 (Approximate), Expires: 01/06/2026 Start: 01-06-2025 End: 01-06-2026 Magnesium [Mass/volume] in Serum or Plasma Magnesium Lab Routine Myalgia Expected: 01/06/2025 (Approximate), Expires: 01/06/2026 [facility] Comment on above: Expected: 01/06/2025 (Approximate), Expires: 01/06/2026 Start: 01-06-2025 End: 01-06-2026 Microalbumin/Creatinine panel in random Urine Microalbumin / creatinine, urine ratio Lab Routine Chronic kidney disease, stage 3a (HCC) ([facility]/HCC) Expected: 01/06/2025 (Approximate), Expires: 01/06/2026 [facility] Comment on above: Expected: 01/06/2025 (Approximate), Expires: 01/06/2026 Start: 01-06-2025 End: 01-06-2026 Thyrotropin [Units/volume] in Serum or Plasma TSH Lab Routine Tremor Expected: 01/06/2025 (Approximate), Expires: 01/06/2026 [facility] Comment on above: Expected: 01/06/2025 (Approximate), Expires: 01/06/2026 Start: 01-06-2025 End: 01-06-2026 Thyroxine (T4) free [Mass/volume] in Serum or Plasma T4, free Lab Routine Tremor Expected: 01/06/2025 (Approximate), Expires: 01/06/2026 [facility] Comment on above: Expected: 01/06/2025 (Approximate), Expires: 01/06/2026 Start: 01-06-2025 End: 01-06-2026 Triiodothyronine (T3) Free [Mass/volume] in Serum or Plasma T3, free Lab Routine Tremor Expected: 01/06/2025 (Approximate), Expires: 01/06/2026 [facility] Comment on above: Expected: 01/06/2025 (Approximate), Expires: 01/06/2026 Start: 01-06-2025 End: 01-06-2026 Urinalysis complete panel - Urine Urinalysis with reflex microscopic (clean catch) Lab Routine Chronic kidney disease, stage 3a (HCC) ([facility]/HCC) Expected: 01/06/2025 (Approximate), Expires: 01/06/2026 [facility] Comment on above: Expected: 01/06/2025 (Approximate), Expires: 01/06/2026 Start: 01-06-2025 End: 01-06-2025 Patient encounter procedure 01/06/2025 9:00 AM EDT Office Visit [facility] [address] [place] [address] Linda Dempsey NP [address] [place] [address] [facility] Start: 11-21-2024 End: 11-21-2024 Patient encounter procedure 11/21/2024 9:00 AM EST Office Visit [facility] [address] [place] [address] Linda Dempsey, BLANQUITA [address] [place] [address] [facility] Start: 10-31-2024 End: 10-31-2024 Patient encounter procedure [facility] Comment on above: Pain due to onychomy cosis of toenails of both feet (Primary Dx); Venous insufficiency Start: 10-17-2024 End: 10-17-2024 Patient encounter procedure [facility] Start: 10-16-2024 End: 10-16-2024 Patient encounter procedure 10/16/2024 10:00 AM EST Office Visit [facility] [address] [place] [address] Linda Dempsey, BLANQUITA [address] [place] [address] Arrived [facility] Comment on above: Arrived Start: 10-10-2024 Medicare Annual Well ness (AWV) Medicare Annual Wellness (AWV) [facility] Start: 10-07-2024 End: 10-07-2024 Patient encounter procedure 10/07/2024 9:00 AM EST Office Visit [facility] [address] [place] [address] Linda Dempsey, CAMPGROUND ATTENDANT [address] [place] [address] [facility] Start: 08-22-2024 End: 08-22-2024 Patient encounter procedure 08/22/2024 2:20 PM EDT Procedure Visit [facility] [address] [facility] [address] [place] [address] Saul Pérez DPM [address] [address] [facility] Start: 08-22-2024 End: 08-22-2024 Patient encounter procedure 08/22/2024 9:20 AM EDT Procedure Visit [facility] [address] [facility] [address] [place] [address] Saul Pérez DPM [address] [address] Pain due to onychomycosis of toenails of both feet (Primary Dx); Venous insufficiency [facility] Comment on above: Pain due to onychomy cosis of toenails of both feet (Primary Dx); Venous insufficiency Start: 07-08-2024 End: 07-08-2024 Patient encounter procedure 07/08/2024 10:00 AM EDT Office Visit [facility] [address] [place] [phone] Linda Dempsey NP [address] [place] [phone] Arrived [facility] Comment on above: Arrived Start: 06-30-2024 Influenza vaccination Influenza Vacc ine (#1) [facility] Start: 1950 Screening for malign ant neoplasm of colon [facility] Immunizations Immunization Date Immunization Notes Care Provider Fa cility 08-02-2024 Pneumococcal Conjuga te PCV 20 Darlene De Souza NP Work Phone: [facility] 08-02-2024 SARS-COV-2 (COVID-19 ) vaccine, mRNA, spike protein, LNP, preservative free, 25 mcg/0.25 mL dose CVX 311 Darlene De Souza CAMPGROUND ATTENDANT Work Phone: [facility] 08-02-2024 Seasonal trivalent influenza vaccine, adjuvanted, preservative free Darlene Aichholz CAMPGROUND ATTENDANT Work Phone: [facility] 08-02-2024 influenza virus vacc ine, unspecified formulation Saul Pérez DPM Work Phone: [facility] 09-29-2023 influenza, high dose seasonal, preservative-free Linda Dempsey CAMPGROUND ATTENDANT Work Phone: [facility] 09-29-2023 influenza virus vacc ine, unspecified formulation Linda Dempsey CAMPGROUND ATTENDANT Work Phone: [facility] 08-22-2023 Influenza, Seasonal, Quadrivalent, Adjuvanted Darlene Aichholz CAMPGROUND ATTENDANT Work Phone: [facility] 08-01-2022 Seasonal trivalent influenza vaccine, adjuvanted, preservative free Darlene Aichholz CAMPGROUND ATTENDANT Work Phone: [facility] 08-09-2021 Seasonal trivalent influenza vaccine, adjuvanted, preservative free Darlene Aichholz CAMPGROUND ATTENDANT Work Phone: [facility] 08-06-2020 pneumococcal polysaccharide vaccine, 23 valent Darlene Aichholz CAMPGROUND ATTENDANT Work Phone: [facility] 08-06-2020 Seasonal trivalent influenza vaccine, adjuvanted, preservative free Darlene Aichholz CAMPGROUND ATTENDANT Work Phone: [facility] 08-05-2019 influenza, injectabl e, quadrivalent, contains preservative Darlene Aichholz CAMPGROUND ATTENDANT Work Phone: [facility] 12-15-2016 influenza, injectabl e, quadrivalent, preservative free Darlene Aichholz CAMPGROUND ATTENDANT Work Phone: [facility] Payers Date Payer Category Payer Private Health Insurance [employer] [id number] 2021 Unknown 2015 Medicare [id number] 1959 Medicare [id number] [id number] 1959 Medicare [id number] [id number] 1951 Unknown [id number] 2.840.1.854548.3.579.2. 593 1951 Unknown [id number] 2.16840.1.813157.3.579.2. 593 1951 Unknown [id number] 2.16.840.1.044301.3.579.2. 593 1951 Unknown [id number] 2.840.1.816925.3.579.2. 593 1951 Unknown [id number] 2.840.1.874274.3.579.2. 593 1951 Unknown [id number] 2.16840.1.913043.3.579.2. 593 1951 Unknown [id number] 2.16.840.1.479103.3.579.2. 1259 1951 Unknown [id number] 2.16840.1.517604.3.579.2. 1259 1951 Unknown [id number] 2.16.840.1.955493.3.579.2. 1259 1951 Unknown [id number] 2.16.840.1.271700.3.579.2. 9 1951 Unknown [id number] 2.16.840.1.856120.3.579.2. 1258 1951 Unknown [id number] 2.16.840.1.141415.3.579.2. 9 1951 Unknown [id number] 2.16.840.1.428761.3.579.2. 1258 1951 Unknown [id number] 2.16.840.1.438535.3.579.2. 1258 1951 Unknown [id number] 2.16.840.1.868164.3.579.2. 1258 1951 Unknown [id number] 2.16.840.1.177008.3.579.2. 1258 1951 Unknown [id number] 2.16.840.1.415534.3.579.2. 1258 1950 Unknown [id number] 2.16.840.1.107627.3.579.2. 1259 Social History Date Type Detail Facility Unknown if ever smoked [employer] Other Start: 07-08-2024 End: 10-16-2024 Sex Assigned At [facility] [employer] Other Start: 04-24-2024 Tobacco smoking stat [facility] Ex-smoker [facility] History of tobacco use Current smoker [facility] History of tobacco use Cigarette Smoker [facility] Start: 04-24-2024 End: 10-16-2024 Cigarettes smoked current (pack per day) - Reported 1 [facility] History of tobacco use Passive smoker [facility] Start: 04-24-2024 Tobacco use and exposure Smokeless tobacco non-user [facility] Start: 07-08-2024 End: 03-11-2025 Alcoholic beverage intake Lifetime non-drinker (finding) [facility] Start: 1950 Sex assigned at Not on file N [facility] Clinical Notes 03-08-2022 to 03-25-2025 Note Date & Type Note Facility 03-25-2025 Evaluation note Diagnosis Stage 3a chronic kidney disease (HCC) ([facility]/HCC)- Primary Encounter for Medicare annual wellness exam Pulmonary emphysema, unspecified emphysema type ([facility]/HCC) COPD with exacerbation ([facility]/HCC) Stage 3a chronic kidney disease (HCC) ([facility]/HCC)- Primary Pulmonary emphysema, unspecified emphysema type ([facility]/HCC) Subconjunctival hemorrhage of left eye Pulmonary emphysema, unspecified emphysema type (CMS/HCC)- Primary Stage 3a chronic kidney disease (HCC) ([facility]/HCC) Pulmonary emphysema, unspecified emphysema type (CMS/HCC)- Primary Stage 3a chronic kidney disease (HCC) ([facility]/HCC) Impacted cerumen of both ears Impacted cerumen Screening for prostate cancer- Primary Special screening for malignant neoplasm of prostate Centrilobular emphysema ([facility]/HCC) Chronic respiratory failure with hypoxia ([facility]/HCC) Chronic kidney disease, stage 3a (HCC) ([facility]/HCC) Bronchiectasis, uncomplicated ([facility]) Myalgia Unspecified myalgia and myositis Tremor Abnormal involuntary movements Impacted cerumen of both ears Impacted cerumen Tremor- Primary Abnormal involuntary movements Impacted cerumen of both ears Impacted cerumen Chronic kidney disease, stage 3a (HCC) ([facility]/HCC) Vitamin D deficiency Vitamin B12 deficiency Other B-complex deficiencies Pulmonary emphysema, unspecified emphysema type ([facility]/HCC)- Primary [facility] in this encounter [id number] History of Present illness Narrative* Darlene De Souza NP - 03/11/2025 2:14 [...] Problem(s): Chronic kidney disease, stage 3a (HCC) ([facility]/HCC) Continue to monitor, appears to be stable * Darlene De Souza NP - 03/11/2025 1:40 PM EDT Images from the original note were not included. Martin Dawn is a 75 y.o. male presents with [...] cholecalciferol (VITAMIN D-3) 125 mcg, Oral, Daily Jtwfwvzynzg-Bdcrdjcfl-Gszazt (Trelegy Ellipta) 200-62.5-25 MCG/ACT aerosol powder 1 [...] on exertion) Dyslipidemia (high LDL; low HDL) ([facility]/HCC) Essential tremor Left hip pain Muscle cramping [...] Size: Adult long) Pulse 68 Temp 98.5 F (Temporal) Resp 20 Wt 211 lb SpO2 90% BMI 28.62 kg/m Smoking Status Former BSA 2.21 m Physical Exam Vitals and nursing note reviewed. [...] propranolol at appt 03/05/25 [id number] Evaluation note* Diagnosis Stage 3a chronic kidney disease (HCC) [...] Impacted cerumen of both ears Impacted cerumen Screening for prostate cancer- Primary Special screening for malignant neoplasm of prostate Centrilobular emphysema (CMS/HCC) Chronic respiratory failure with hypoxia (CMS/HCC) Chronic kidney disease, stage 3a (HCC) (CMS/HCC) Bronchiectasis, uncomplicated (CMS/HCC) Myalgia Unspecified myalgia and myositis Tremor Abnormal involuntary movements Impacted cerumen of both ears Impacted cerumen Tremor- Primary Abnormal involuntary movements Impacted cerumen of both ears Impacted cerumen Chronic kidney disease, stage 3a (HCC) ([facility]) Vitamin D deficiency Vitamin B12 deficiency Other B-complex deficiencies documented in this encounter [id number] History of Present illness Narrative* Alonso Adams, - 03/05/2025 2:00 PM EDT Images from the original note were not included. Chief Complaint Patient presents with Tremors Subjective Martin Yang Dawn, 75 y.o., male new patient here in neurologic consultation at the request of Darlene De Souza CNP for tremor and imbalance. HPI The patient states that he has tremors for years and they have been worsening recently. He has a tremor bilat hands. He is starting to lose coordination and dexterity in his fingers. HE has some tremor at rest and with fine motor movements. It comes and goes. If he tries to roll picker a glass it can be difficult and he will spill what was in it. He does no drink alcohol. His son had tremors. He passed from suicide. He remembers people telling him he had tremors when hewas younger and remember if having a tremor when he used to smoke and if he was hungry. No head or voice tremor. For the last couple of months he feel off balanced and like he has the wobbles. He denies any falls. He states that he feels like he shuffles his feet. He has cramps all over his body randomly that comes and goes, but is almost daily. He denies positional lightheadedness. He admits he does not drink enough water during the day. He does have some numbness into his feet. He has some itching in his left medial foot. Past Medical History: Diagnosis Date Abnormal chest CT Abnormal EKG Acute right-sided thoracic back pain Bilateral impacted cerumen Blood pressure elevated without history of HTN CKD (chronic kidney disease), stage III (HCC) ([facility]) COPD (chronic obstructive pulmonary disease) ([facility]) GOLDEN (dyspnea on exertion) Dyslipidemia (high LDL; low HDL) ([facility]) Essential tremor Left hip pain Muscle cramping Neurogenic claudication due to lumbar spinal stenosis Pain in left lumbar region of back Personal history of nicotine dependence Shortness of breath on exertion Past Surgical History: Procedure Laterality Date TONSILLECTOMY VASECTOMY 2006 Family History Problem Relation Name Age of Onset Hyperlipidemia Mother Hyperlipidemia Sister Social History Tobacco Use Smoking status: Former Current packs/day: 1.00 Average packs/day: 1 pack/day for 50.0 years (50.0 ttl pk-yrs) Types: Cigarettes Passive exposure: Past Smokeless tobacco: Never Substance Use Topics Alcohol use: Never Allergies: Patient has no known allergies. General: No fever or chills HEENT: No nasal congestion or runny nose Pulmonary: No shortness of breath or cough Cardiovascular: No chest pain or palpitations GI: No nausea or vomiting : No dysuria or hematuria Musculoskeletal: No new aches or pains or muscle weakness Infectious: no recurrent fevers or infections Dermatologic: No rashes or skin lesions Neurologic: No new headaches or dizziness Vitals: 03/05/25 1346 BP: 126/84 Pulse: 85 SpO2: 93% Body mass index is 28.35 kg/m . Weight: 209 lb Neurologic exam: General: Normal body habitus, cooperative, pleasant Mental status: Awake, alert to person, place and time. Recent and remote memory are intact. Attention and concentration are normal. Fund of knowledge is appropriate for level of education. HEENT: NC/AT Cranial nerves: CN II: Visual brown full to confrontation. No loss of vision CN III, IV, : pupils equal round and reactive to light. Extraocular movements intact. No ptosis present. CN V: Facial sensation is normal. CN VII: Full and symmetric facial movement. CN VIII: Hearing is normal CN IX and X: Palate elevates symmetrically. CN XI: Shoulder shrug is normal bilaterally. CN XII: Tongue is midline without atrophy or fasciculation. Speech: Clear and fluent no aphasia or dysarthria Pronator drift: Negative bilateral upper extremity Coordination: Intact, no signs of dysmetria Good finger to nose and rapid alternating movements Sensory: Sensation is intact to light, temperature touch throughout four extremities. Mild decrease in Pinprick and vibratory in distal BLE. Motor: LUE 5/5 RUE 5/5 LLE 5/5 RLE 5/5 Tone: Mild BUE temor that is antigravity and with intention, no rigidity or cogwheeling or bradykinesia DTR: Bilateral Biceps 2/4 Bilateral BR 2/4 Bilateral Patellar 2/4 No spasticity Gait: Normal to casual gait Romberg's Negative Review and summary of old records: Assessment/Plan Diagnoses and all orders for this visit: Essential tremor - propranolol LA (Inderal LA) 60 MG 24 hr capsule; Take 1 capsule (60 mg) by mouth Daily Do not crush, chew, or split. Idiopathic peripheral neuropathy - Folate; Future - Folate; Future - Protein electrophoresis, serum; Future - NVC 9-10 Nerves; Future - EMG 2 Extremities; Future Numbness and tingling Vitamin B12 deficiency Tremor - Ambulatory referral to Neurology 75-year-old male with a bilateral upper extremity tremor that at this time is most consistent with an essential tremor he does have some very mild Parkinson's like symptoms so we will watch him over time. He has a slightly stooped posture and a little bit of tremor at rest but it is not a true pronation supination type of tremor. At this time we will go ahead and trial some Inderal LA 60 mg and see if this helps subside the tremor. He was counseled for light-headedness and syncope and needs to watch his blood pressure. He needs to increase his water intake. Patient also has some mild balance disorder which appears to be related to some early peripheral neuropathy. He has some decreased sensation distally and a mildly positive Romberg's. We will go aheadand get some neuropathy testing Patient did have a vitamin B12 deficiency and should supplement his vitamin B12. We will go ahead and have him get labs in approximately 4-6 weeks after he has started the vitamin B12 to be sure thatit goes back to normal along with that get folic acid and serum protein electrophoresis. He did have a TSH which was normal. Plan: Supplement the vitamin B12 I will order an electromyograph evaluation of the lower extremities to assess for nerve damage suchas lumbar radiculopathy, lumbar plexopathy, or peripheral neuropathy. Lab work in 4-6 weeks Trial of Inderal LA 60 mg Counseled on lightheadedness hypotension and syncope call if there is an issue Increase his water intake Regular exercise Overall healthy lifestyle including Mediterranean/whole foods diet, regular exercise and good sleep Monitor tremor. The diagnosis was all discussed with the patient. All questions were answered and they agreed with the treatment plan. Patient will call if there are any new issues or questions. Pt has been fully educated on their diagnosis, treatment options, follow up plan, and return instructions Return to clinic: 2 months documented in this encounterSS[facility] [id number] Evaluation note* Diagnosis Stage 3a chronic kidney disease (HCC) [...] Impacted cerumen of both ears Impacted cerumen Screening for prostate cancer- Primary Special screening for malignant neoplasm of prostate Centrilobular emphysema (CMS/HCC) Chronic respiratory failure with hypoxia (CMS/HCC) Chronic kidney disease, stage 3a (HCC) ([facility]/HCC) Bronchiectasis, uncomplicated (CMS/HCC) Myalgia Unspecified myalgia and myositis Tremor Abnormal involuntary movements Impacted cerumen of both ears Impacted cerumen Essential tremor- Primary Idiopathic peripheral neuropathy Unspecified hereditary and idiopathic peripheral neuropathy Numbness and tingling Disturbance of skin sensation Vitamin B12 deficiency Other B-complex deficiencies Tremor Abnormal involuntary movements documented in this encounter [facility] [id number] Evaluation note* Diagnosis Stage 3a chronic kidney disease (HCC) [...] Impacted cerumen of both ears Impacted cerumen Screening for prostate cancer- Primary Special screening for malignant neoplasm of prostate Centrilobular emphysema (CMS/HCC) Chronic respiratory failure with hypoxia (CMS/HCC) Chronic kidney disease, stage 3a (HCC) (CMS/HCC) Bronchiectasis, uncomplicated ([facility]/HCC) Myalgia Unspecified myalgia and myositis Tremor Abnormal involuntary movements Impacted cerumen of both ears Impacted cerumen Vitamin D deficiency- Primary documented in this encounter [facility] [id number] History of Present illness Narrative* Saul Jin Beto, DPM - 01/23/2025 1:50 PM EDT Patient: Martin Dawn : 1950 PCP: Demetrius Dorado MD SUBJECTIVE This is a 75 y.o. male that presents today with a [...] CKD (chronic kidney disease), stage III (HCC) (CMS/[facility]) COPD (chronic obstructive pulmonary disease) ([facility]/HCC) GOLDEN (dyspnea on exertion) Dyslipidemia (high LDL; low HDL) ([facility]) Essential tremor Left hip pain Muscle cramping Neurogenic claudication due to lumbar spinal stenosis Pain in left lumbar region of back Personal history of nicotine dependence Shortness of breath on exertion Medications: Current Outpatient Medications: albuterol HFA 90 mcg/act inhaler, Inhale 2 puffs every 4 (four) hours if needed for wheezing, Disp:, Rfl: Zzuugfgibwd-Sqkoxuswf-Uhuzox (Trelegy Ellipta) 200-62.5-25 MCG/ACT aerosol powder , [...] Partner Violence: Unknown (12/21/2023) [facility] [place] [employer] Fear of Current [...] feet ORTHO: Positive pain on palpation to toenails of the left 1,2,3,4,5 toes and right 1,2,3,4,5 toes ASSESSMENT 1. Pain due to onychomycosis of toenails of both feet 2. Venous insufficiency PLAN Discussed proper foot care with patient today. Debride nails in length and thickness digits 1 through 10 Saul Pérez DPM documented in this encounterSSM Health [facility]'s [id number] Evaluation note* Diagnosis Stage 3a chronic kidney disease (HCC) ([facility]/HCC)- Primary Encounter for Medicare annual wellness exam Pulmonary emphysema, unspecified emphysema type (CMS/HCC) COPD with exacerbation (CMS/[facility]) Stage 3a chronic kidney disease (HCC) (CMS/HCC)- Primary Pulmonary emphysema, unspecified emphysema type (CMS/HCC) Subconjunctival hemorrhage of left eye Pulmonary emphysema, unspecified emphysema type (CMS/HCC)- Primary Stage 3a chronic kidney disease (HCC) (CMS/HCC) Pulmonary emphysema, unspecified emphysema type (CMS/HCC)- Primary Stage 3a chronic kidney disease (HCC) (CMS/HCC) Impacted cerumen of both ears Impacted cerumen Screening for prostate cancer- Primary Special screening for malignant neoplasm of prostate Centrilobular emphysema (CMS/HCC) Chronic respiratory failure with hypoxia (CMS/HCC) Chronic kidney disease, stage 3a (HCC) (CMS/HCC) Bronchiectasis, uncomplicated (CMS/HCC) Myalgia Unspecified myalgia and myositis Tremor Abnormal involuntary movements Impacted cerumen of both ears Impacted cerumen Pain due to onychomycosis of toenails of both feet- Primary Venous insufficiency Unspecified venous (peripheral) insufficiency documented in this encounter [facility] [id number] History of Present illness Narrative* Darlene De Souza NP - 01/06/2025 2:23 PM EDTAssociated Problem(s): Tremor No family hx of parkinson's Was told some time ago had essential tremors We discussed this, as well as other etiologies Will order some labs and refer to Neurology for evaluation Fu w nm in 8 weeks * Darlene De Souza NP - 01/06/2025 2:23 PM EDTAssociated Problem(s): Impacted cerumen of both ears Left canal cleared with currette Right canal mild amount removed, will likely need irrigation in future appt * Darlene De Souza NP - 01/06/2025 2:22 PM EDTAssociated Problem(s): Myalgia Check labs Recommend increase hydration with water * TASHA HUGHES - 01/06/2025 1:20 PM EDT Pt would like to talk about his balance and the shakes he's been noticing it a lot more lately especially in the shower and when turning. He has been told essential tremors he would like to know more about them. Pt is having severe cramps all over his body; pt drinks 2 cups of coffee in the am and a couple glasses during the day. Pt also does not take any vitamins or supplements * Darlene De Souza, BLANQUITA - 01/06/2025 1:20 PM EDT Images from the original note were not included. Martin Dawn is a 74 y.o. male presents with chief complaint of No chief complaint on file. HPI: Pt would like to talk about his balance and the shakes he's been noticing it a lot more lately especially in the shower and when turning. He has been told essential tremors he would like to know more about them. Pt is having severe cramps all over his body; pt drinks 2 cups of coffee in the am and a couple glasses during the day. Pt also does not take any vitamins or supplements Tremor The tremor affects the hands and arms. The onset of the tremor was gradual. Current severity of tremor is rated at moderate. The tremor occurs all day. Associated symptoms include change in handwriting, change in posture and difficulty balancing. Associated symptoms do not include difficulty walking, rigidity, sleep disturbance, trouble swallowing or voice change. SUBJECTIVE: MEDICATIONS: Current Outpatient Medications Medication Instructions albuterol HFA 90 mcg/act inhaler 2 puffs, Every 4 hours PRN Hpgmzzvycmn-Jnypqwzsq-Tvbaqn (Trelegy Ellipta) 200-62.5-25 MCG/ACT aerosol powder 1 puff, Daily ALLERGIES: No Known Allergies REVIEW OF SYMPTOMS: Review of Systems Constitutional: Positive for fatigue. Negative for activity change, appetite change and [...] urine volume, difficulty urinating, dysuria and hematuria. Musculoskeletal: Positive for myalgias. Negative for arthralgias. Skin: Negative for color change. Neurological: Positive [...] CKD (chronic kidney disease), stage III (HCC) ([facility]) COPD (chronic obstructive pulmonary disease) ([facility]) GOLDEN (dyspnea on exertion) Dyslipidemia (high LDL; low HDL) ([facility]) Essential tremor Left hip pain Muscle cramping Neurogenic claudication due to lumbar spinal stenosis Pain in left lumbar region of back Personal history of nicotine dependence Shortness of breath on exertion Past Surgical History: Procedure Laterality Date TONSILLECTOMY VASECTOMY 2006 family history includes Hyperlipidemia in his mother and sister. OBJECTIVE: Visit Vitals BP 138/88 (BP Location: Left arm, Patient Position: Sitting, BP Cuff Size: Adult long) Pulse 70 Temp 97.8 F (Temporal) Resp 19 Ht 6' 1 Wt 209 lb SpO2 90% BMI 27.57 kg/m Smoking Status Former BSA 2.21 m Physical Exam Vitals and nursing note reviewed. Constitutional: Appearance: Normal appearance. HENT: Head: Normocephalic. Right Ear: External ear normal. There is impacted cerumen. Left Ear: External ear normal. There is impacted cerumen. Nose: Nose normal. Mouth/Throat: Mouth: Mucous membranes are moist. Pharynx: Oropharynx is clear. No oropharyngeal exudate or posterior oropharyngeal erythema. Eyes: Extraocular Movements: Extraocular movements intact. Conjunctiva/sclera: Conjunctivae normal. Neck: Vascular: No carotid bruit. Cardiovascular: Rate and Rhythm: Normal rate and regular rhythm. Pulses: Normal pulses. Heart sounds: Normal heart sounds. Pulmonary: Effort: Pulmonary effort is normal. Breath sounds: Normal breath sounds. No wheezing or rhonchi. Abdominal: General: Bowel sounds are normal. Palpations: Abdomen is soft. There is no mass. Tenderness: There is no abdominal tenderness. Musculoskeletal: Cervical back: Neck supple. Right lower leg: Edema present. Left lower leg: Edema present. Comments: Pedal L>R MMT 5/5 bilat UE/LE Skin: General: Skin is warm and dry. Capillary Refill: Capillary refill takes 2 to 3 seconds. Neurological: General: No focal deficit present. Mental Status: He is alert. Cranial Nerves: No cranial nerve deficit. Deep Tendon Reflexes: Reflexes normal. Comments: Tremoring noted bilat ue Neg romberg and ulnar drift Psychiatric: Mood and Affect: Mood normal. Behavior: Behavior normal. Thought Content: Thought content normal. Judgment: Judgment normal. ASSESSMENT AND PLAN: Follow up in about 6 weeks (around 02/17/2025) for Recheck. Problem List Items Addressed This Visit Chronic kidney disease, stage 3a (HCC) (CMS/HCC) Relevant Orders CBC and differential Comprehensive metabolic panel Urinalysis with reflex microscopic (clean catch) Microalbumin / creatinine, urine ratio Vitamin D 25 hydroxy COPD with emphysema (CMS/HCC) Continue with dr christensen Current meds: albuterol and trelegy Relevant Orders CBC and differential Impacted cerumen of both ears Left canal cleared with currette Right canal mild amount removed, will likely need irrigation in future appt Chronic respiratory failure with hypoxia (CMS/HCC) Per dr christensen Relevant Orders CBC and differential Bronchiectasis, uncomplicated (CMS/HCC) Follows with Dr Christensen Current med: albuterol and trelegy Recommend keeping UTD on flu and pneumonia and COVID vaccines Screening for prostate cancer - Primary Recommend yearly prostate cancer screening Myalgia Check labs Recommend increase hydration with water Relevant Orders Magnesium Tremor No family hx of parkinson's Was told some time ago had essential tremors We discussed this, as well as other etiologies Will order some labs and refer to Neurology for evaluation Fu w nm in 8 weeks Relevant Orders TSH T4, free T3, free Vitamin B12 Ambulatory referral to Neurology * Darlene De Souza NP - 01/06/2025 6:43 AM EDTAssociated Problem(s): Screening for prostate cancer Recommend yearly prostate cancer screening * Darlene De Souza NP - 01/06/2025 6:42 AM EDTAssociated Problem(s): COPD with emphysema (CMS/HCC) Continue with dr christensen Current meds: albuterol and trelegy * Darlene De Souza NP - 01/06/2025 6:41 AM EDTAssociated Problem(s): Chronic respiratory failure with hypoxia (CMS/HCC) Per dr christensen * Darlene De Souza NP - 01/06/2025 6:40 AM EDTAssociated Problem(s): Bronchiectasis, uncomplicated (CMS/HCC) Follows with Dr Christensen Current med: albuterol and trelegy Recommend keeping UTD on flu and pneumonia and COVID vaccines documented in this [facility]03-10-2025 Instructions* Patient Instructions* Darlene De Souza NP - 01/06/2025 1:20 PM EDT Check labs Refer to neurology documented in this [facility]03-10-2025 Evaluation note* Diagnosis Stage 3a chronic kidney disease (HCC) ([facility]/HCC)- Primary Encounter for Medicare annual wellness exam [...] Impacted cerumen of both ears Impacted cerumen Screening for prostate cancer- Primary Special screening for malignant neoplasm of prostate Centrilobular emphysema (CMS/HCC) Chronic respiratory failure with hypoxia (CMS/HCC) Chronic kidney disease, stage 3a (HCC) (CMS/HCC) Bronchiectasis, uncomplicated (CMS/HCC) Myalgia Unspecified myalgia and myositis Tremor Abnormal involuntary movements Impacted cerumen of both ears Impacted cerumen [facility] [id number] History of Present illness Narrative* aSul Pérez, DPAdan - 10/31/2024 9:30 AM EST Patient: Martin Dawn : 1950 PCP: Demetrius Dorado MD [...] 4 (four) hours if needed for wheezing, Disp:, Rfl: Kkkmrxzzjfn-Wnqmadkda-Wejjjf (Trelegy Ellipta) 200-62.5-25 MCG/ACT aerosol powder , [...] Partner Violence: Unknown (12/21/2023) [facility] [place] [facility] Fear of Current [...] 10 Saul Pérez DPM documented in this encounterSSM [facility] [id number] Evaluation note* Diagnosis Stage 3a chronic kidney disease (HCC) ([facility]/HCC)- Primary Encounter for Medicare annual wellness exam Pulmonary emphysema, unspecified emphysema type ([facility]/HCC) COPD with exacerbation ([facility]) Stage 3a chronic kidney disease (HCC) ([facility])- Primary Pulmonary emphysema, unspecified emphysema type ([facility]/HCC) Subconjunctival hemorrhage of left eye Pulmonary emphysema, unspecified emphysema type (CMS/HCC)- Primary Stage 3a chronic kidney disease (HCC) ([facility]) Pulmonary emphysema, unspecified emphysema type ([facility]/HCC)- Primary Stage 3a chronic kidney disease (HCC) ([facility]) Impacted cerumen of both ears Impacted cerumen Pain due to onychomycosis of toenails of both feet- Primary Venous insufficiency Unspecified venous (peripheral) insufficiency documented in this encounter [facility] [id number] History of Present illness Narrative* Linda Dempsey NP - 10/16/2024 10:00 AM EST Images from the original note were not included. Subjective : Chief Complaint: Martin Dawn is an 74 y.o. male here for an annual wellness visit. I have reviewed and reconciled the history and medication list with the patient today. Current Outpatient Medications Medication Sig Dispense Refill albuterol HFA 90 mcg/act inhaler Inhale 2 puffs every 4 (four) hours if needed for wheezing Rdlrelkhgfs-Ebumgpbnq-Uctkko (Trelegy Ellipta) 200-62.5-25 MCG/ACT aerosol powder Inhale 1 puff Daily No current facility-administered medications for this visit. List of current healthcare providers: Patient Care Team: Demetrius Dorado MD as PCP - General (Family Medicine) Linda Dempsey NP as Nurse Practitioner (Family Medicine) Medicare Annual Visit Over the past 2 weeks, how often have you been bothered by any of the following problems? Little interest or pleasure in doing things: Not at all Feeling down, depressed, or hopeless: Not at all Patient Health Questionnaire-2 Score: 0 Over the past 2 weeks, how often have you been bothered by any of the following problems? Trouble falling or staying asleep, or sleeping too much: Not at all Feeling tired or having little energy: Not at all Poor appetite or overeating: Not at all Feeling bad about yourself - or that you are a failure or have let yourself or your family down: Not at all Trouble concentrating on things, such as reading the newspaper or watching television: Not at all Moving or speaking so slowly that other people could have noticed? Or the opposite - being so fidgety or restless that you have been moving around a lot more than usual.: Not at all Thoughts that you would be better off or hurting yourself in some way: Not at all Patient Health Questionnaire-9 Score: 0 Katz Fall Risk History of Falling, Immediate or Within 3 Months: No Health Risk Assessment Form Do you need help eating, bathing, using the toilet, dressing, or getting around your home?: No Can you prepare your own meals?: Yes Can you do your own housework without help?: Yes Can you shop for groceries or clothes without help?: Yes Do you exercise for about 20 minutes 3 or more days a week?: No How confident are you that you can control and manage most of your health problems?: Very confident Can you mange your money, credit cards and accounts, pay bills and taxes?: Yes Cognitive Screening Three Word Registration: Bakari Suraez, Finger Clock Drawing: Normal Clock - 2 Three Word Recall: All 3 words correct - 3 Total Score (0-5 Points): 5 Advance Care Planning Do you have a living will?: No Do you have a medical power of trust and estates attorney?: No Objective : BP 120/86 Pulse 97 Temp 97.6 F Resp 18 Ht 6' 1 Wt 216 lb SpO2 93% BMI 28.50 kg/m No results found. Assessment/Plan : The following health maintenance schedule was reviewed with the patient and provided in printed form in the after visit summary: Health Maintenance Topic Date Due Medicare Annual Wellness (AWV) 10/10/2024 Colorectal Cancer Screening 10/30/2027 Influenza Vaccine Completed Pneumococcal Vaccine: 65+ Years Completed Advance Care Planning Pt given information on Advance Care Directives No orders of the defined types were placed in this encounter. Electronically signed by Linda Dempsey NP on October 16, 2024 documented in this encounterSSM Health [facility]'s [id number] History of Present illness Narrative* Saul Pérez DPM - 08/22/2024 9:20 AM EDT Patient: Martin Dawn : 1950 PCP: Demetrius Doraod MD SUBJECTIVE This is a 74 y.o. [...] on exertion) Dyslipidemia (high LDL; low HDL) ([facility]) Essential tremor Left hip pain Muscle cramping Neurogenic claudication due to lumbar spinal stenosis Pain in left lumbar region of back Personal history of nicotine dependence Shortness of breath on exertion Medications: Current Outpatient Medications: albuterol HFA 90 mcg/act inhaler, Inhale 2 puffs every 4 (four) hours if needed for wheezing, Disp:, Rfl: Snnyjvxdlhy-Zswllwfzr-Oogcug (Trelegy Ellipta) 200-62.5-25 MCG/ACT aerosol powder , [...] Partner Violence: Unknown (12/21/2023) [facility] [place] [facility] Fear of Current [...] 10 Saul Pérez DPM documented in this encounterSSM Health [facility]'s [id number] Evaluation note* Diagnosis Stage 3a chronic kidney disease (HCC) ([facility]/HCC)- Primary Encounter for Medicare annual wellness exam Pulmonary emphysema, unspecified emphysema type ([facility]) COPD with exacerbation ([facility]) Stage 3a chronic kidney disease (HCC) ([facility]/HCC)- Primary Pulmonary emphysema, unspecified emphysema type (CMS/HCC) Subconjunctival hemorrhage of left eye Pulmonary emphysema, unspecified emphysema type (CMS/HCC)- Primary Stage 3a chronic kidney disease (HCC) ([facility]/HCC) Pulmonary emphysema, unspecified emphysema type (CMS/HCC)- Primary Stage 3a chronic kidney disease (HCC) (CMS/HCC) Impacted cerumen of both ears Impacted cerumen Pain due to onychomycosis of toenails of both feet- Primary Venous insufficiency Unspecified venous (peripheral) insufficiency documented in this encounter [facility] HospitalPjogujefvk04-04-2013 History of Present illness Narrative* Linda Dempsey NP - 07/08/2024 10:33 AM EDTAssociated Problem(s): Stage 3a chronic kidney disease (HCC) ([facility]) CKD 3, stable. Renal function stable. Avoid nephrotoxic agents. * Linda Dempsey NP - 07/08/2024 10:31 AM EDTAssociated Problem(s): COPD with emphysema ([facility]) Currently taking Trelegy daily Uses Albuterol PRN for rescue inhaler- states he needs roughly 2 times per week Uses supplemental oxygen 2L as needed. Follows closely with Dr. Christensen pulmonology; Next appointment this month 06/2024. Had PFT's and oxygen study done last month. Continue current regimen. * Linda Dempsey NP - 07/08/2024 10:00 AM EDT Images from the original note were not included. Subjective Patient ID: Martin Dawn is a 74 y.o. male who presents for Follow-up (3M0). HPI Most recent labs done in 02/2024; ? WNL; COPD with emphysema: Currently taking Trelegy daily Uses Albuterol PRN for rescue inhaler- states he needs roughly 2 times per week Uses supplemental oxygen 2L as needed. Follows closely with Dr. Christensen pulmonology; Next appointment this month 06/2024. Had PFT's and oxygen study done last month. Continue current regimen. CKD 3, stable. Renal function stable. Avoid nephrotoxic agents Review of Systems Constitutional: Negative for activity change, appetite change, chills, diaphoresis, fatigue, fever and unexpected weight change. HENT: Negative for congestion, ear pain, rhinorrhea, sinus pressure, sinus pain, sneezing, sore throat, trouble swallowing and voice change. Eyes: Negative for visual disturbance. Respiratory: Negative for cough, chest tightness, shortness of breath and wheezing. Cardiovascular: Negative for chest pain, palpitations and leg swelling. Gastrointestinal: Negative for abdominal distention, abdominal pain, blood in stool, constipation, diarrhea and vomiting. Genitourinary: Negative for decreased urine volume, dysuria, flank pain, frequency, hematuria and urgency. Musculoskeletal: Negative for arthralgias, gait problem, joint swelling and myalgias. Skin: Negative for rash. Neurological: Negative for dizziness, tremors, syncope, weakness, light- headedness and headaches. Psychiatric/Behavioral: Negative for decreased concentration and suicidal ideas. The patient is notnervous/anxious. Hematological: Does not bruise/bleed easily. Endocrine: Negative for cold intolerance, heat intolerance, polydipsia, polyphagia and polyuria. Objective Physical Exam Vitals reviewed. Constitutional: Appearance: Normal appearance. HENT: Head: Normocephalic and atraumatic. Right Ear: There is impacted cerumen. Left Ear: There is impacted cerumen. Nose: Nose normal. Mouth/Throat: Mouth: Mucous membranes are moist. Pharynx: Oropharynx is clear. Eyes: Pupils: Pupils are equal, round, and reactive to light. Cardiovascular: Rate and Rhythm: Normal rate and regular rhythm. Pulses: Normal pulses. Heart sounds: Normal heart sounds. Pulmonary: Effort: Pulmonary effort is normal. Breath sounds: Normal breath sounds. Abdominal: General: Abdomen is flat. Bowel sounds are normal. Palpations: Abdomen is soft. Musculoskeletal: General: Normal range of motion. Cervical back: Normal range of motion. Skin: General: Skin is warm and dry. Capillary Refill: Capillary refill takes less than 2 seconds. Neurological: General: No focal deficit present. Mental Status: He is alert and oriented to person, place, and time. Psychiatric: Mood and Affect: Mood normal. Behavior: Behavior normal. Assessment/Plan Problem List Items Addressed This Visit Stage 3a chronic kidney disease (HCC) ([facility]) CKD 3, stable. Renal function stable. Avoid nephrotoxic agents. COPD with emphysema ([facility]) - Primary Currently taking Trelegy daily Uses Albuterol PRN for rescue inhaler- states he needs roughly 2 times per week Uses supplemental oxygen 2L as needed. Follows closely with Dr. Christensen pulmonology; Next appointment this month 06/2024. Had PFT's and oxygen study done last month. Continue current regimen. Impacted cerumen of both ears Relevant Medications carbamide peroxide (Debrox) 6.5 % otic solution documented in this [facility]09-09-2024 Instructions* Patient Instructions* Linda Dempsey NP - 07/08/2024 10:00 AM EDT Keep up the good work! Call if you need anything! documented in this encounterSSM [facility]'s [id number] NoteCardiology Clinic Note Chief Complaint: follow up HPI: Martin Dawn is a 73 y.o. male with [...] will check lipid panel (more content not included)...[facility]09-08-2023 Note Patient here for 6 mo follow up abnormal stress test, dyspnea, and hypertension. Still denies chest pain. PCP manages his COPD/emphysema. He had CT chest and lab work a few weeks ago.[facility]03-29-2023 Note Cardiology Clinic Note Chief Complaint: new patient regarding abnormal stress test HPI: Martin Dawn is a 73 y.o. male with [...] a fixed inferior defect, which could be aircraft sales representative of a prior infarct with scar versus artifact. I discussed with him options, including invasive coronary angiography for delineation of coronary anatomy and ruling out of critical lesions. Patient understands the procedure, and he defers any invasive procedures at this ti (more content not included)...[facility]08-24-2022 NotePROCEDURE: XR HIP LT 2 3V W PELVIS [...] the hip joints bilaterally. Electronically authenticated by: MARSHALL DAVISON Date: 2022-06-22 08:42[facility]08-19-2022 Evaluation note* Encounter Date Diagnosis Assessment Notes Treatment Notes Treatment Clinical Notes May, Strain of lumbar region, initial [...] if symptoms worsen or new symptoms occur. [employer] Other 05-10-2022 Evaluation note* Encounter Date Diagnosis Assessment Notes Treatment Notes Treatment Clinical Notes February, Chronic kidney disease, stage 3a [...] Follow-up with the patient in 3 months [employer] Other Evaluation note* Diagnosis Stage 3a chronic kidney disease (HCC) [...] Impacted cerumen of both ears Impacted cerumen Encounter for Medicare annual wellness exam- Primary documented [facility] this [facility] Diagnosis Pulmonary emphysema, unspecified emphysema type (CMS/HCC)- Primary Stage 3a chronic kidney disease (HCC) (CMS/HCC) Impacted cerumen of both ears Impacted cerumen documented in this encounter [facility] general Narrative - Reported* Type Description Date Medical History DYSLIPIDEMIA Medical History ESSENTIAL TREMOR [...] History TEETH Hospitalization History LUNG INFECTION 2013 [employer] Other Summary Purpose Family History No Family [...] section and content) DATE CREATED AUTHOR 04/19/2018 [facility] DATE CREATED AUTHOR AUTHOR'S ORGANIZ ATION 11/11/2022 [facility] DATE CREATED AUTHOR AUTHOR'S ORGANIZ ATION 07/08/2023 [facility] DATE CREATED AUTHOR AUTHOR'S ORGANIZ ATION 03/12/2025 [facility] d[facility] Specialists EPIC REASON FOR VISIT (unrecogniz ed section and content) Reason Comments Toenail Care Non DM Nails Reason Comments Follow-up 3M0 Reason Comments Toenail Care Non dm nail care Reason Comments Tremors Specialty Diagnoses / Procedures Referred By Contangelique t Referred To Contact Neurology Diagnoses Tremor Procedures NE OFFICE/OUTPATIENT [facility] 60 MINUTES Darlene De Souza NP [address] [place] [address] Phone: tel: fax: Arnulfo Kwok DO [address] [place] [address] Phone: tel: fax: Referral ID Status Reason Start Date Expiration Date V isits Requested Visits Authorized [id number] Closed Consult and Treat 01/06/2025 07/05/2025 1 1 Reason Comments Follow-up Reason Comments Med Refill Care Teams (unrecognized sec tion and content) Musical String Maker Relationship Specialty Start Date End Date Demetrius Dorado MD [address] [place] [phone] PCP - General Family Medicine 06/05/24 Linda Dempsey NP [address] [place] [address] Nurse Practitioner Family Medicine 06/05/24 Musical String Maker Relationship Specialty Start Date End Date Demetrius Dorado MD [address] [place] [address] PCP - General Family Medicine 06/05/24 Linda Dempsey NP [address] [place] [address] Nurse Practitioner Family Medicine 06/05/24 Musical String Maker Relationship Specialty Start Date End Date Demetrius Dorado MD [address] [place] [address] PCP - General Family Medicine 06/05/24 Linda Dempsey NP [address] [place] [address] Nurse Practitioner Family Medicine 06/05/24 Musical String Maker Relationship Specialty Start Date End Date Demetrius Dorado MD [address] [place] [address] PCP - General Family Medicine 06/05/24 Linda Dempsey NP [address] [place] [address] Nurse Practitioner Family Medicine 06/05/24 Musical String Maker Relationship Specialty Start Date End Date Demetrius Dorado MD [address] [place] [phone] PCP - General Family Medicine 06/05/24 Linda Dempsey NP [address] [place] [phone] Nurse Practitioner Family Medicine 06/05/24 Musical String Maker Relationship Specialty Start Date End Date Demetrius Dorado MD [address] [place] [phone] PCP - General Family Medicine 06/05/24 Linda Dempsey NP [address] [place] [address] Nurse Practitioner Family Medicine 06/05/24 Musical String Maker Relationship Specialty Start Date End Date Demetrius Dorado MD [address] [place] [phone] PCP - General Family Medicine 06/05/24 Linda Dempsey NP [address] [place] [phone] Nurse Practitioner Family Medicine 06/05/24 Musical String Maker Relationship Specialty Start Date End Date Demetrius Dorado MD [address] [place] [phone] PCP - General Family Medicine 06/05/24 Linda Dempsey NP [address] [place] [phone] Nurse Practitioner Family Medicine 06/05/24 Musical String Maker Relationship Specialty Start Date End Date Demetrius Dorado MD [address] [place] [phone] PCP - General Family Medicine 06/05/24 Linda Dempsey NP [address] [place] [address] Nurse Practitioner Family Medicine 06/05/24 Musical String Maker Relationship Specialty Start Date End Date Demetrius Dorado MD [address] [place] [phone] PCP - General Family Medicine 06/05/24 Linda Dempsey NP [address] [place] [phone] Nurse Practitioner Family Medicine 06/05/24 Musical String Maker Relationship Specialty Start Date End Date Demetrius Dorado MD [address] [place] [phone] PCP - General Family Medicine 06/05/24 Linda Dempsey NP [address] [place] [phone] Nurse Practitioner Family Medicine 06/05/24 Musical String Maker Relationship Specialty Start Date End Date Demetrius Dorado MD [address] [place] [phone] PCP - General Family Medicine 06/05/24 Linda Dempsey NP [address] [place] [phone] Nurse Practitioner [facility] 06/05/24 Musical String Maker Relationship Specialty Start Date End Date Demetrius Dorado MD [address] [place] [phone] PCP - [facility] 06/05/24 Linda Dempsey NP [address] [place] [address] Nurse Practitioner [facility] 06/05/24 Musical String Maker Relationship Specialty Start Date End Date Demetrius Dorado MD [address] [place] [phone] PCP - [facility] 06/05/24 Linda Dempsey NP [address] [place] [address] Nurse Practitioner [facility] 06/05/24 FOR RECORDS PERTAINING TO PATIENTS WHO [...] BE BASED ON THE PRIMARY CLINICAL RECORDS. [employer] provides no warranty or guarantee of the accuracy or completeness of information in this document.
== END 2025-04-04 14:18 | disposition home or self-care (01) ==
LOC: CT 14:17
PROVIDERS: Visit Provider Internal Medicine
DX: R91.8 Other nonspecific abnormal finding of lung field (principal); J44.9 Chronic obstructive pulmonary disease, unspecified
CPT/HCPCS: 71250

== ENCOUNTER 2025-06-18 11:01 | Outpatient (OUT) | payer MEDICARE, OTHER, SELFPAY ==
--- OUTSIDE RECORDS SUMMARY | 2025-06-18 11:04 | XMS_ITS | Clinical Summary ---
Author Organization [facility] Address [address] [place] [address] Care Team Providers Care Wedding Transportation Driver Name Role Phone Demetrius Dorado MD Primary Care Provider [phone] Zainab Dempsey NP Unavailable [phone] Allergies No known active allergies Medications Fluticasone-Ume clidin-Vilant (Trelegy Ellipta) 200-62.5-25 MCG/ACT aerosol powder Inhale 1 puff Daily Active propranolol LA (Inderal LA) 60 MG 24 hr capsuleIndicati ons:Essential tremor Take 1 capsule (60 mg) by mouth Daily Do not crush, chew, or split. 30 capsule 2 03/05/20 25 026 Active albuterol HFA 90 mcg/act inhalerIndicati ons:Pulmonary emphysema, unspecified emphysema type (HCC) Inhale 2 puffs every 6 (six) hours if needed for wheezing or shortness of breath 18 g 1 05/13/20 25 Active cholecalciferol (Vitamin D-3) 125 MCG (5000 UT) capsuleIndicati ons:Vitamin D deficiency Take 1 capsule (125 mcg) by mouth Daily 30 capsule 1 06/06/20 25 025 Active cholecalciferol (Vitamin D-3) 125 MCG (5000 UT) capsuleIndicati ons:Vitamin D deficiency Take 1 capsule (125 mcg) by mouth Daily 30 capsule 05/07/20 25 025 Discontinued Active Problems Problem Noted Date Diagnosed Date Vitamin B12 deficiency 03/11/2025 Assessment & Plan (03/11/2025 2:14 PM EDT): Vit b12 supplement, is currently taking 500mcg daily, increase to 1000mcg daily Vitamin D deficiency 02/27/2025 Assessment & Plan (03/11/2025 2:14 PM EDT): Taking vit d3 daily Chronic respiratory failure with hypoxia 025 Assessment & Plan (01/06/2025 6:41 AM EDT): Per dr jones Bronchiectasis, uncomplicated 01/06/2025 Assessment & Plan (01/06/2025 6:41 AM EDT): Follows with Dr Jones Current med: albuterol and trelegy Recommend keeping [...] Conservative measures. Chronic kidney disease, stage 3a 10/10/2023 Assessment & Plan (03/11/2025 2:13 PM EDT): [...] (01/06/2025 2:24 PM EDT): Continue with dr jones Current meds: albuterol and trelegy #4 samples of trelegy 200: Lot: [id number], exp 03/24 Assessment & Plan (07/08/2024 10:31 AM EDT): Currently taking Trelegy daily Uses Albuterol PRN for rescue inhaler- states he needs roughly 2 times per week Uses supplemental oxygen 2L as needed. Follows closely with Dr. Jones pulmonology; Next appointment this month 06/2024. Had [...] Encounters Date Type Department Care Team Description 06/05/2025 Refill [facility] [address] [place] [address] Darlene De Souza NP Vitamin D deficiency 05/20/2025 Abstract [facility] [address] [place] [address] Darlene De Souza NP 05/13/2025 Refill [facility] [address] [place] [address] Darlene De Souza NP Pulmonary emphysema, unspecified emphysema type (HCC) 05/07/2025 Refill [facility] [address] [place] [address] Darlene De Souza NP Essential tremor; Vitamin D deficiency 04/17/2025 4:00 PM EDT Procedure Visit [facility] [address] [place] [phone] Saul Pérez DPM Pain due to onychomycosis of toenails of both feet (Primary Dx); Venous insufficiency 04/17/2025 Bamboo flowsheet [facility] [address] [facility] [address] [place] [phone] Saul Pérez DPM 04/17/2025 Travel 03/27/2025 Refill JOSEF [facility] [address] [place] [address] Yulissa Stanford DO Essential tremor 03/25/2025 Clinisync Result Encounter [facility] External Department Unsolicited Yulissa Stanford DO 03/25/2025 Refill [facility] [address] [place] [phone] Darlene De Souza, BLANQUITA Pulmonary emphysema, unspecified emphysema type (HCC) (Primary Dx) from Last 3 Months Immunizations Immunization Administration [...] Past Smokeless Tobacco: Never Tobacco Cessation:Counseling Given: Yes Alcohol Use Standard Drinks/Week Comments Never 0 [...] F) 03/11/2025 1:49 PM EDT Respiratory Rate 16 04/17/2025 4:00 PM EDT Oxygen Saturation 90% 03/11/2025 1:49 PM EDT Inhaled Oxygen Concentration - - Weight 95.7 kg (211 lb) 04/17/2025 4:00 PM EDT Height 182.9 cm (6') 04/17/2025 4:00 PM EDT Body Mass Index 28.62 04/17/2025 4:00 PM EDT Plan of Treatment Upcoming Encounters Date Type Department Care Team ([facility] st Contact Info) Description 06/26/2025 2:20 PM EDT Procedure Visit [facility] [address] [facility] [address] [place] [address] Saul Pérez DPM [address] [facility] [place] [address] 07/07/2025 1:00 PM EDT Office Visit [facility] [address] [place] [address] Darlene De Souza, IN FLIGHT REFUELING SYSTEM REPAIRER [address] [place] [address] Health Maintenance Due Date Last Done Comments CT Colonography 1950 FIT-DNA 1950 FIT 1950 FOBT 1950 Sigmoidoscopy 1950 Influenza Vaccine (#1) 2025 , 09/29/2023, 08/22/2023, Additional history exists Medicare Annual Wellness (AWV) 10/16/2025 10/16/2024 , 10/10/2023 Colonoscopy 10/30/2027 10/30/2017 Colorectal Cancer Screening 10/30/2027 Pneumococcal Vaccine: 65+ Years Completed 08/02/2024, 10/30/2021, [...] AG UR Routine 03/25/2025 8:46 AM EDT from Last 3 Months Results * Folate (03/26/2025 9:59 AM EDT) Only the most recent of2 resultswithin the time period is included. Blood Venous blood specimen / Unknown Yulissa Stanford DO LAB BLOOD ORDERABLES Final Resu lt [facility] * ASPERGILLUS AB, QN, DID (03/25/2025 9:14 AM EDT) Pathologist [facility] ASPERG.1 Negative Neg:<1:1 [facility] ASPERG.2 Negative Neg:<1:1 [facility] ASPERG.3 Negative Neg:<1:1 [facility] 03/25/2025 9:14 AM EDT 03/25/2025 9:16 AM EDT Narrative [facility] - 03/28/2025 11:08 PM EDT us Generic External Data Provider LAB BLOOD ORDERAB LES Final Result Performing Organization Address City/[facility] Co de Phone Number [facility] * QUANTIFERON-TB GOLD PLUS (03/25/2025 [...] <0.35 IU/mL. Chemiluminescence immunoassay methodology Performed at: [employer] [id number] Antisubmarine Weapons Officer: Sin Goss PhD, Phone: [phone] QUANTIFERON CRITERIA Comment . [facility] Comment: QuantiFERON-TB [...] Provider LAB BLOOD ORDERAB LES Final Result [facility] * PROTEIN ELECTRO.,S (03/25/2025 9:14 AM EDT) PROTEIN, TOTAL 6.3 6.0 - 8.5 g/dL [facility] ALBUMIN 3.6 2.9 - 4.4 g/dL [facility] HIWJZ-0-[id number] 0.3 0.0 - 0.4 g/dL [facility] PGTVH-3-HIYFMXNV 0.7 0.4 - 1.0 g/dL [facility] BETA GLOBULIN 0.8 0.7 - 1.3 g/dL [facility] GAMMA GLOBULIN 0.9 0.4 - 1.8 g/dL [facility] M-SPIKE Not Observed Not Observed g/dL [facility] GLOBULIN, TOTAL 2.7 2.2 - 3.9 g/dL [facility] A/G RATIO 1.3 0.7 - 1.7 [facility] PLEASE NOTE: Comment . TB Comment: Protein electrophoresis scan will follow via computer, mail, or residential coordinator delivery. Performed at: [address] [id number] Antisubmarine Weapons Officer: Sin Goss PhD, Phone: [phone] 03/25/2025 9:14 AM EDT 03/25/2025 9:16 AM EDT Narrative [facility] - 03/26/2025 5:08 PM EDT Yulissa Stanford DO LAB BLOOD ORDERABLES Final Resu lt Performing Organization Address [facility]/ZIP Co de Phone Number [facility] * HISTOPLASMA CAPSULATUM ABS. (03/25/2025 9:14 AM EDT) HISTOPLASMA MYCELIAL CF AB. Negative Neg:<1:2 [facility] HISTOPLASMA YEAST CF AB Negative Neg:<1:2 [facility] Comment: Performed at: [address] [id number] Antisubmarine Weapons Officer: Whit Weeks MD, Phone: [phone] 03/25/2025 9:14 AM EDT 03/25/2025 9:16 AM EDT Narrative [facility] - 03/28/2025 11:08 PM EDT Generic External Data Provider LAB BLOOD ORDERAB LES Final Result Performing Organization Address [facility] Co de Phone Number [facility] * BLASTOMYCES ABS, QN, DID (03/25/2025 9:14 AM EDT) [facility] BLASTOMYCES ABS, QN, DID Negative Neg:<1:1 [facility] Comment: Performed at: [address] [id number] Antisubmarine Weapons Officer: Whit Weeks MD, Phone: [phone] 03/25/2025 9:14 AM EDT 03/25/2025 9:16 AM EDT Narrative [facility] - 03/28/2025 11:08 PM EDT Generic External Data Provider LAB BLOOD ORDERAB LES Final Result Performing Organization Address City/[facility]/ZIP Co de Phone Number [facility] * ALL FOLIC ACID (03/25/2025 9:14 AM EDT) FOLATE 16.60 8.60 - 58.90 ng/mL [facility] 03/25/2025 9:14 AM EDT 03/25/2025 9:16 AM EDT Narrative [facility] - 03/25/2025 11:23 AM EDT us Yulissa Stanford DO CLIN[facility]NC Final Result Performing Organization Address City/[facility]/ZIP Co de Phone Number [facility] * ALL ANGIOTENSIN CONVERTING ENZYME (03/25/2025 9:14 AM EDT) ANGIOTENSIN-CON VERTING ENZYME 46 14 - 82 U/L [facility] Comment: Performed at: [facility] [address] [id number] Antisubmarine Weapons Officer: Sin Goss PhD, Phone: [phone] 03/25/2025 9:14 AM EDT 03/25/2025 9:16 AM EDT Narrative [facility] - 03/26/2025 3:08 PM EDT us Generic External Data Provider [facility] F inal Result Performing Organization Address [facility] Co de Phone Number [facility] * HISTOPLASMA GAL'BRODERICK AG UR (03/25/2025 8:46 AM EDT) Pathologist [facility] HISTOPLASMA GAL'BRODERICK AG UR Negative <0.2 ng/mL [facility] Comment: Performed at: [facility] [address] [id number] Antisubmarine Weapons Officer: Whit Weeks MD, Phone: [phone] 03/25/2025 8:46 AM EDT 03/25/2025 9:16 AM EDT Narrative [facility] - 03/27/2025 4:08 PM EDT URINE us Generic External Data Provider LAB BLOOD ORDERAB LES Final Result [facility] from Last 3 Months Insurance [employer] Care Teams Wedding Transportation Driver Relationship Specialty Start Date End Date Demetrius Dorado MD [address] [place] [address] PCP - General Family Medicine 06/05/24 Zainab Dempsey NP [address] [place] [address] Nurse Practitioner Family Medicine 06/05/24
--- OUTSIDE RECORDS SUMMARY | 2025-06-18 11:04 | XMS_ITS | Clinical Summary ---
Author Organization [facility] Address [address] [place] [address] Care Team Providers Care Contact Center Engineer Name Role Phone Shaikh MOIZ Knight Primary Care Provider Allergies No known active allergies Medications albuterol 90 mcg/actuation inhaler INHALE 2 TABLETS BY MOUTH EVERY 4 HOURS NEEDED FOR SHORTNESS OF BREATH 3 Active Trelegy Ellipta 200-62.5-25 mcg blister with device INHALE 1 PUFF BY MOUTH EVERYDAY 2 Active Family History Medical History Relation Name [...] at Not on file Legal Sex Male 12:05 AM EDT Gender Identity Not on file [...] 2001 Fall Risk Screening 01/13/2016 Pneumococcal Vaccine: 50+ Years (2 of 2 - PCV) 08/06/2021 08/06/2020 COVID-19 Vaccine ( - season) 2024 Influenza Vaccine (#1) 2025 3, 08/22/2023, 08/01/2022, Additional history exists HIB Vaccines [...] on patient's age to complete this topic Insurance [employer] Care Teams Contact Center Engineer Relationship Specialty Start Date End Date Shaikh Knight MD PCP - General Family Medicine 01/24/23
--- OUTSIDE RECORDS SUMMARY | 2025-06-18 11:04 | XMS_ITS | Encounter Summary ---
Author Organization [facility] Address [address] [place] [address] Care Team Providers Care Director Outpatient Services Name Role Phone Demetrius Dorado MD Primary Care Provider [phone] Zainab Gerard NP Unavailable [phone] Encounter Details Date Type Department Care Team [...] things Not at all 10/16/2024 9:00 AM Guilia Mayer MA Feeling down, depressed, or hopeless [...] Care Team (Late st Contact Info) Description 06/26/2025 2:20 PM EDT Procedure Visit [facility] [address] [facility] [address] [place] [address] Saul Pérez DPM [address] [facility] [address] [place] [address] 07/07/2025 1:00 PM EDT Office Visit [facility] [address] [place] [phone] Darlene De Souza NP [address] [place] [address] documented as of this encounter Procedures Procedure Name Priority Date/Time Associated Diagnosis Comments CT LUNG SCREENING LOW DOSE 10/14/2024 11:30 AM EST documented in this encounter Results * CT LUNG SCREENING LOW DOSE (10/14/2024 11:30 AM EST) Anatomical Region Laterality Modality Other 10/14/2024 11:3 0 AM EST Narrative 10/14/2024 11:32 AM EST [address] [address] [address] Scan Report Signed Patient: SPENCER ARROYO MR#: [id number] : 1950 Acct:[id number] Age/Sex: 74 / M ADM Date: 10/11/24 Loc: CT Attending Dr: Darlene Christensen D.O. Ordering Physician: Darlene Christensen D.O. Date of Service: 10/11/24 Procedure(s): CT lung screening low-dose Accession Number(s): [id number] cc: ZAINAB GERARD [place] [id number] Patient Name: SPENCER ARROYO MRN: [id number] date: 1950 Sex: M Assigned Patient Location: CT Current Patient Location: Accession/Order Number: [id number] Exam Date: 10/11/2024 10:05 Report Date: 10/14/2024 [...] Signed By: 10/14/24 1132 DD/ 1130 TD/TT: Certified Home Health Aide: Procedure Note Radiology, Radiologist, MD - 10/14/2024 [place] [address] CT Scan Report Signed Patient: SPENCER ARROYO RMR#: [id number] : 1950cct:[id number] Age/Sex: 74 / MADM Date: 10/11/24 Loc: CT Attending Dr: Darlene Christensen D.O. Ordering Physician: Darlene Christensen D.O. Date of Service: 10/11/24 Procedure(s): CT lung screening low-dose Accession Number(s): [id number] cc: ZAINAB GERARD [place] [id number] Patient Name: SPENCER ARROYO MRN: [id number] date: 1950 Sex: M Assigned Patient Location: CT Current Patient Location: Accession/Order Number: [id number] Exam Date: 10/11/2024 10:05 Report Date: 10/14/2024 [...] M.D. Signed By:10/14/24 1132 DD/ 1130 TD/TT: Certified Home Health Aide: us Generic External Data Provider [facility] Final Result documented in this encounter Visit Diagnoses Not on filedocumented in this encounter Additional Health Concerns Assessment Noted Time PHQ-9 Depression Total Score: 0 10/10/20 23 11:00 AM EST documented as of this encounter Care Teams Director Outpatient Services Relationship Specialty Start Date End Date Demetrius Dorado MD [address] [place] [address] PCP - General Family Medicine 06/05/24 Zainab Gerard NP [address] [place] [address] Nurse Practitioner Family Medicine 06/05/24 documented as of this encounter
--- OUTSIDE RECORDS SUMMARY | 2025-06-18 11:04 | XMS_ITS | Encounter Summary ---
Author Organization [facility] Address [address] [place] [address] Care Team Providers Care [employer] Name Role Phone Demetrius Dorado MD Primary Care Provider [phone] Zainab Dempsey NP Unavailable [phone] Encounter Details Date Type Department Care Team (Late Contact Info) Description 05/20/2025 Abstract [facility] [address] [place] [phone] Darlene De Souza NP [address] [place] [address] Social History Tobacco Use Types Packs/Day Years [...] Department Care Team (Late Contact Info) Description 06/26/2025 2:20 PM EDT Procedure Visit [facility] [address] [facility] [address] [place] [phone] Saul Pérez DPAdan [address] [facility] 5 [place] [address] 07/07/2025 1:00 PM EDT Office Visit [facility] [address] [place] [address] Darlene De Souza NP [address] [place] [phone] documented as of this encounter Visit Diagnoses Not on filedocumented in this encounter Additional Health Concerns Assessment Noted Time PHQ-9 Depression Total Score: 0 10/16/20 24 9:00 AM EST documented as of this encounter Care Teams [employer] Relationship Specialty Start Date End Date Demetrius Dorado MD [address] [place] [phone] PCP - General Family Medicine 06/05/24 Zainab Dempsey NP [address] [place] [phone] Nurse Practitioner Family Medicine 06/05/24 documented as of this encounter
--- OUTSIDE RECORDS SUMMARY | 2025-06-18 11:04 | XMS_ITS | Encounter Summary ---
Author Organization [facility] Address [address] [place] [address] Care Team Providers Care Telegraph Operator Name Role Phone Demetrius Dorado MD Primary Care Provider [phone] Zainab Dempsey NP Unavailable [phone] Encounter Details Date Type Department Care Team (Late Contact Info) Description 06/07/2024 Clinisync Result Encounter [facility] External Department Unsolicited Shaikh Knight MD [address] [place] [phone] Social History Tobacco Use Types Packs/Day Years [...] CI PODIATRY 112 [facility] [address] [place] [address] Saul Pérez DPM [address] [facility] 5 [place] [address] 07/07/2025 1:00 PM EDT Office Visit [facility] [address] [place] [address] Darlene De Souza, BLANQUITA [address] [place] [address] documented as of this encounter Procedures Procedure Name Priority Date/Time Associated Diagnosis Comments RT PULMONARY FUNCTION TEST 06/07/2024 9:01 AM EDT documented in this encounter Results * RT PULMONARY FUNCTION TEST (06/07/2024 9:01 AM EDT) Anatomical Region Laterality Modality Other 06/07/2024 9:01 AM EDT Narrative 06/18/2024 7:35 AM EDT [address] [address] Respiratory Report Signed Patient: MARTIN ARROYO MR#: [id number] : 1950 Acct:[id number] Age/Sex: 74 / M ADM Date: 06/07/24 Loc: CARD Attending Dr: Shaikh Antonia Sam Ordering Physician: Shaikh Cecy Knight Date of Service: 06/07/24 Procedure(s): RT pulmonary function test Accession Number(s): [id number] cc: [facility] Test Date: 2024-06-07 Pat Name: MARTIN ARROYO Department: Room: - Gender: Male Night Time Babysitter: Erin Chowdary RRT : 1950 Requested By: [id number] Order Number: [id number] Edmar MD: Chandler Mckee Interpretive Statements Pulmonary function testing was completed according to ATS criteria. Findings were considered accurate and reproducible. Both pre- and post-bronchodilator values utilized for spirometry. Spirometry (based on pre-bronchodilator values): -FEV1/FVC: Reduced @ 47% -FEV1: Moderately-severe reduction @ 51% -FVC: Reduced @ 79% -NUF71-26%: Reduced @ 27% -There is no significant [...] Signed By: 06/18/24 0735 DD/ 0901 TD/TT: Diesel Dragline Operator: Procedure Note Radiology, Radiologist, MD - 06/18/2024 [place] [address] Respiratory Report Signed Patient: MARTIN ARROYO RMR#: [id number] : 1950cct:[id number] Age/Sex: 74 / MADM Date: 06/07/24 Loc: CARD Attending Dr: Shaikh Antonia Sam Ordering Physician: Shaikh Cecy Knight Date of Service: 06/07/24 Procedure(s): RT pulmonary function test Accession Number(s): [id number] cc: [facility] Test Date: 2024-06-07 Pat Name: MARTIN ARROYO Department: Room: - Gender: Male Night Time Babysitter: Erin Chowdary RRT : 1950 Requested By: [id number] Order Number: [id number] Reading MD: Chandler Mckee Interpretive Statements Pulmonary function testing was completed according to ATS criteria.Findings were considered accurate and reproducible. Both pre- andpost-bronchodilator values utilized for spirometry. Spirometry (based on pre-bronchodilator values): -FEV1/FVC: Reduced @ 47% -FEV1: Moderately-severe reduction @ 51% -FVC: Reduced @ 79% -CIY11-99%: Reduced @ 27% -There is no significant [...] D.O. Signed By:06/18/24 0735 DD/ 0901 TD/TT: Diesel Dragline Operator: us Shaikh Antonia [facility] Final Result documented in this encounter Visit Diagnoses Not on filedocumented in this encounter Additional Health Concerns Assessment Noted Time PHQ-9 Depression Total Score: 0 10/10/20 23 11:00 AM EST documented as of this encounter Care Teams Telegraph Operator Relationship Specialty Start Date End Date Demetrius Dorado MD [address] [place] [address] PCP - General Family Medicine 06/05/24 Zainab Dempsey NP [address] [place] [address] Nurse Practitioner Family Medicine 06/05/24 documented as of this encounter
--- OUTSIDE RECORDS SUMMARY | 2025-06-18 11:17 | XMS_ITS | CCD ---
Author Organization [facility]ini[facility] Care Team Providers Care Statistical Programmer Name Role Phone PHYSICIAN, DEFAULT Unavailable Unavailable [...] Care Provider Ke JUARES, Linda Unavailable Ke WAITSTAFF, Linda Unavailable DARLENE DE SOUZA Attending Unavailable SAUL PÉREZ Attending Unavailable ALONSO ADAMS Attending Unavailable DARLENE DE SOUZA Referring Unavailable DARLENE DE SOUZA Attending Unavailable SAUL PÉREZ Attending Unavailable SHAIKH CONTRERAS Attending Unavailable SAUL PÉREZ Attending Unavailable LINDA DEMPSEY Attending UnavailSAUL Randhawa Attending Unavailable LINDA DEMPSEY Attending SAUL Cantrell Attending Unavailable Alonso Adams DO Attending Provider [facility] Provide r Katy Floyd APRN Attending Provider Medications Current Medications Medication Drug Class(es) Dates Sig (Normalized) Sig (Original) [id number] 200 actuat albuterol 0.09 mg/actuat metered dose inhaler (20 sources) beta2-Adrenergic Agonist Start: 05-27-2025 take 1 puff(s) by inhalation every six hours Albuterol Sulfate 90 mcg/actuation HFA aerosol inhaler Active 2 PUFF INHALATION Q6H May 27, 2025 12:00am Complies with drug therapy Start: 03-25-2025 End: 06-12-2025 take 2 puff(s) by inhalation every six hours for wheezing albuterol HFA 90 mcg/act inhaler Indications: Pulmonary emphysema, unspecified emphysema type (HCC) Inhale 2 puffs every 6 (six) hours if needed for wheezing or shortness of breath 18 g 1 05/13/2025 06/12/2025 Active End: 03-25-2025 take 2 puff(s) by [...] 07/12/2024 Active cholecalciferol 0.125 mg oral capsule (14 sources) Vitamin D Start: 05-07-2025 End: 07-06-2025 take 1 capsule by mouth once daily cholecalciferol (Vitamin D-3) 125 MCG (5000 UT) capsule Indications: Vitamin D deficiency Take 1 capsule (125 mcg) by mouth Daily 30 capsule 1 06/06/2025 07/06/2025 Active Start: 02-27-2025 End: 03-29-2025 take 1 capsule [...] aerosol powder Inhale 1 puff Daily Active Fluticasone-Umeclidin -Vilanter (1 source) Start: 05-27-2025 Fluticasone-Umeclidin -Vilanter (Trelegy Ellipta) 200-62.5-25 mcg blister with device Active 1 INH INHALATION Daily May 27, 2025 12:00am Complies with drug therapy methylPREDNISolone 4 mg oral tablet (1 source) Corticosteroid Start: 06-17-2022 methylPREDNISolone 4 MG start tomorrow as directed Orally Once a day for 6 days May, Active 24 hr propranolol hydrochloride 60 mg extended release oral capsule (13 sources) beta-Adrenergic Luis Start: 05-27-2025 take 1 capsule by mouth every twenty-four hours Propranolol 60 mg capsule,extended release 24 hr Active 60 MG PO Once May 27, 2025 12:00am Complies with drug therapy Start: 03-05-2025 End: 03-05-2026 take 1 capsule [...] oral tablet (1 source) alpha-Adrenergic Agonist, Uncompetitive G-uhjgid-S-aspartate Receptor Antagonist, Sigma-1 Agonist Capmist DM 60-15-400 [...] Translations: [Hyperlipidemia, unspecified] Onset: 07-07-2023 Chronic Mycoses (4 sources) Pain in toe; Translations: [Tinea unguium] 08-19-2024 Episodic Nutritional deficiencies (19 sources) Vitamin D deficiency; Translations: [Vitamin D deficiency, unspecified] Onset: 02-27-2025 02-27-2025 Chronic Nutritional deficiencies (13 sources) Cobalamin deficiency; Translations: [Deficiency of other specified B group vitamins] Onset: 03-11-2025 03-05-2025 Episodic Other diseases of veins and lymphatics (4 sources) Vascular insufficiency; Translations: [Venous insufficiency (chronic) (peripheral)] 08-19-2024 Episodic Other hereditary and degenerative nervous system conditions (3 sources) Essential tremor; Translations: [Essential tremor] 03-05-2025 Chronic Other lower respiratory disease (4 sources) Other forms of dyspnea; Translations: [OTHER FORMS OF DYSPNEA] Onset: 11-10-2022 Episodic Other nervous system disorders (2 sources) Idiopathic peripheral neuropathy; Translations: [Hereditary and idiopathic neuropathy, unspecified] 03-05-2025 Chronic Other nervous system disorders (2 sources) Peripheral nerve disease ; Translations: [Polyneuropathy, unspecified] 04-22-2025 Chronic Other nervous system disorders (3 sources) Numbness and tingling sensation of skin; Translations: [Anesthesia of skin] 03-05-2025 Episodic Other screening for suspected conditions (not mental disorders or infectious disease) (4 sources) Abnormal findings on diagnostic imaging of other specified body structures; Translations: [ABNORML FIND DX IMG OTH BODY STRUC] Onset: 02-22-2022 Chronic Respiratory failure; insufficiency; arrest (adult) (20 sources) Chronic hypoxemic respiratory failure; Translations: [Chronic [...] disorders Onset: 10-10-2023 Resolved: 10-16-2024 10-10-2023 Other connective tissue disease (20 sources) Muscle pain; Translations: [Myalgia, unspecified site] Onset: 01-06-2025 01-06-2025 Episodic Other ear and sense organ disorders (20 [...] FIND LNG FIELD] Onset: 12-16-2021 Episodic Other lower respiratory disease (20 sources) Multiple nodules of lung; Translations: [Other nonspecific abnormal finding of lung field] Onset: 01-06-2025 01-06-2025 Episodic Other nervous system disorders (20 sources) Tremor; Translations: [Tremor, unspecified] Onset: 01-06-2025 01-06-2025 Episodic Other screening for suspected conditions (not mental disorders or infectious disease) (20 sources) Encounter for screening for malignant neoplasm of respiratory organs; Translations: [Patient encounter status] Onset: 12-16-2021 01-06-2025 Episodic Spondylosis; intervertebral disc disorders; other back problems (4 sources) Spinal stenosis, lumbar region with neurogenic claudication; Translations: [SPINAL STENOSIS LUMBAR REGION NC] Onset: 06-28-2022 Episodic Unclassified (1 source) LOW BACK PAIN, UNSPECIFIED; Translations: [LOW BACK PAIN, UNSPECIFIED] Onset: 12-10-2021 Results Test Name Value Interpretation Reference Range Facility ALL FOLIC ACIDon 03-25-2025 FOLATE 16.6 ng/mL 8.60 - 58.90 ng/mL [facility] ALL CBC WITH AUTO DIFFon BASOPHILS ABSOLUTE AUTO 0.1 [facility] Basophils/100 WBC (Bld) 0.7 % 0.2 - 2.0 % [facility] Eosinophils/100 WBC (Bld) 1.7 % 0.9 - 7.0 % [facility] Erythrocyte distribution width (RBC) [Ratio] 13.2 % 11.0 - 15.0 % [facility] Hematocrit (Bld) [Volume fraction] 50.2 % 42.0 - 54.0 % [facility] e Hemoglobin (Bld) [Mass/Vol] 17.1 g/dL 14.0 - 18.0 g/dL [facility] IMMATURE GRANULOCYTES ABS AUTO 0.02 [facility] Immature granulocytes/100 WBC (Bld) 0.3 % 0.0 - 0.5 % [facility] Interpretation and review of laboratory results [facility] LYMPHOCYTES ABSOLUTE AUTO 1.1 Low [facility] Lymphocytes/100 WBC (Bld) 15.3 % Low 20.5 - 60.0 % [facility] MCH (RBC) [Entitic mass] 32.1 pg 25.9 - 34.0 pg [facility] MCHC (RBC) [Mass/Vol] 34.1 g/dL 29.9 - 35.2 g/dL [facility] MCV (RBC) [Entitic vol] 94.4 fL High 80.0 - 94.0 fL [facility] MONOCYTES ABSOLUTE AUTO 0.6 [facility] Monocytes/100 WBC (Bld) 7.7 % 1.7 - 12.0 % [facility] NEUTROPHILS ABSOLUTE AUTO 5.5 [facility] Neutrophils/100 WBC (Bld) 74.3 % 43.0 - 75.0 % [facility] Platelet mean volume (Bld) [Entitic vol] 9 fL Low 9.5 - 13.5 fL [facility] TBH EO # 0.1 [facility]T [facility] RBC 5.32 [facility] WBC 7.4 [facility] CT CHEST WO CONon 01-08-[address] [address] [address] Scan Report Signed Patient: MARTIN DAWN MR#: [id number] : 1950 Acct:[id number] Age/Sex: 74 / M ADM Date: 01/08/25 Loc: CT Attending Dr: Darlene Christensen D.O. Ordering Physician: Darlene Christensen D.O. Date of Service: 01/08/25 Procedure(s): CT chest wo con Accession Number(s): [id number] cc: LINDA DEMPSEY [place] [id number] Patient Name: MARTIN DAWN MRN: [facility]:[id number] date: 1950 Sex: M Assigned Patient Location: CT Current Patient Location: CT Accession/Order Number: [id number] Exam Date: 01/08/2025 18:00 Report Date: 01/08/2025 [...] Tonny Aguilar M.D.01/08/2025 6:07 PM Dictation Location: [place] [address] Electronically authenticated by: [id number] Y Date: 01/08/2025 18:07 Dictated By: Tonny Aguilar D.O. Signed By: 01/08/251809 DD/ 06 TD/TT: Materials Development Engineer: [facility] Radiology, Radiologist, MD - 01/08/[address]25 [place] [address] CT Scan Report Signed Patient: MARTIN DAWN MR#: [id number] : 1950 Acct:[id number] Age/Sex: 74 / M ADM Date: 01/08/25 Loc: CT Attending Dr: Darlene Christensen D.O. Ordering Physician: Darlene Christensen D.O. Date of Service: 01/08/25 Procedure(s): CT chest wo con Accession Number(s): [id number] cc: LINDA DEMPSEY [place] [id number] Patient Name: MARTIN DAWN MRN: [facility]:[id number] date: 1950 Sex: M Assigned Patient Location: CT Current Patient Location: CT Accession/Order Number: [id number] Exam Date: 01/08/2025 18:00 Report Date: 01/08/2025 [...] Tonny Aguilar M.D.01/08/2025 6:07 PM Dictation Location: [place] [address] Electronically authenticated by: [id number] Y Date: 01/08/2025 18:07 Dictated By: Tonny Aguilar D.O. Signed By: 01/08/251809 DD/ 06 TD/TT: Materials Development Engineer: [facility] Top-Level Domain Radiology Study observation (narrative) [facility] CT CHEST WO CONOrdered By: Yang adiologguera Radiology on 01-08-2025 [facility] Work Phone: Office Visiton 07-07-2023 Follow-up visit [id number] Martin Dawn 1950 M Date Provider Department Center 07/07/2023 3848-SEBASTIAN KOHLER [facility] Family History Problem Relation Age of Onset No Known Problems Mother No Known Problems Father Family Status - Relation Status Age at Mother Father Level of Service:37165 MO OFFICE/OUTPATIENT ESTABLISHED LOW MDM 20-29 MIN Normal [facility] Office Visiton 01-25-2023 Follow-up visit [id number] Martin Dawn 1950 M Date Provider Department Center 01/25/2023 3848-SEBASTIAN KOHLER [facility] No family history on file Level of Service:87177 MO OFFICE/OUTPATIENT NEW MODERATE MDM 45-59 MINUTES Reason for Visit and Comments: New Patient [632] - Est care- Ongoing SOB and results of heart test Normal [facility] CP ECHO W CONTRASTon 023 CP ECHO W CONTRAST Patient: CRISTI DAWN Exam Date: 11/10/2022 : 1950 Gender:M Ordering : SHAIKH Nathanael CONTRERAS . Admission #: [id number] Family : Order #: [id number] CLICK HERE TO VIEW EXAM ECHOCARDIOGRAM REPORT [...] Paz M.D. on 11/11/2022 at 13:[address] [facility] NM STRESS/REST MULTIon 11-10 NM STRESS/REST MULTI Patient: MARTIN DAWN Exam Date: 11/10/2022 : 1950 Gender:M Ordering : SHAIKH Nathanael CONTRERAS . Admission #: [id number] Family : Order #: [id number] CLICK HERE TO VIEW EXAM RADIOLOGY REPORT PROCEDURE: RADIONUCLIDE IMAGING STRESS/REST MULTI COMPARISON: PA STRESS/REST MULTI, 12/07/2017. INDICATIONS: Dyspnea on exertion [...] Davison M.D. on 11/10/2022 at 15:[address] [facility] BNPon 11-02-2022 Natriuretic peptide B (Bld) [Mass/Vol] 122.0 pg/mL Normal <=900.0 [facility] Comment on above: Performed By: #### C MP #### [facility] [address] [place] [address] [address] Radha Gomez CBC AUTO DIFFon 11-02-2022 BASO # 0.1 103/ul Normal 0.0-0.1 [facility] Comment on above: Performed By: #### C MP #### [facility] [address] [place] [address] Dr. Radha Gomez Basophils/100 WBC (Bld) 0.8 % Normal 0.2-2.0 [facility] Comment on above: Performed By: #### C MP #### [facility] [address] [place] [address] Dr. Radha Gomez EO # 0.1 103/ul Normal 0.0-0.7 [facility] Comment on above: Performed By: #### C MP #### [facility] [address] [place] [address] Dr. Radha Gomez Eosinophils/100 WBC (Bld) 1.9 % Normal 0.9-7.0 [facility] Comment on above: Performed By: #### C MP #### [facility] [address] [place] [address] Dr. Radha Gomez Erythrocyte distribution width (RBC) [Ratio] 12.7 % Normal 11.0-15.0 [facility] Comment on above: Performed By: #### C MP #### [facility] [address] [place] [address] Dr. Radha Gomez Hematocrit (Bld) [Volume fraction] 49.8 % Normal 42.0-54.0 [facility] Comment on above: Performed By: #### C MP #### [facility] [address] [place] [address] Dr. Radha Gomez Hemoglobin (Bld) [Mass/Vol] 16.9 g/dL Normal 14.0-18.0 [facility] Comment on above: Performed By: #### C MP #### [facility] [address] [place] [address] Dr. Radha Gomez IG # 0.02 10e3/ul Normal 0.00-0.[address] [facility] Comment on above: Performed By: #### C MP #### [facility] [address] [place] [address] Dr. Radha Gomez IG % 0.3 % Normal 0.0-0.[address] [facility] Comment on above: Performed By: #### C MP #### [facility] [address] [place] [address] Dr. Radha Gomez LYMPH # 1.4 103/ul Normal 1.2-3.[address] [facility] Comment on above: Performed By: #### C MP #### [facility] [address] [place] [address] Dr. Radha Gomez Lymphocytes/100 WBC (Bld) 19.3 % Critically low 20.5-60.[address] [facility] Comment on above: Performed By: #### C MP #### [facility] [address] [place] [address] Dr. Radha Gomez MANUAL DIFF REQ NO Normal [facility] Comment on above: Performed By: #### C MP #### [facility] [address] [place] [address] Dr. Radha Gomez MCH (RBC) [Entitic mass] 31.9 pg Normal 25.9-34.[address] [facility] Comment on above: Performed By: #### C MP #### [facility] [address] [place] [address] Dr. Radha Gomez MCHC (RBC) [Mass/Vol] 33.9 g/dL Normal 29.9-35.2 [facility] Comment on above: Performed By: #### C MP #### [facility] [address] [place] [address] Dr. Radha Gomez MCV (RBC) [Entitic vol] 94.0 fL Normal 80.0-94.[address] [facility] Comment on above: Performed By: #### C MP #### [facility] [address] [place] [address] Dr. Radha Gomez MONO # 0.7 103/ul Normal 0.3-0.[address] [facility] Comment on above: Performed By: #### C MP #### [facility] [address] [place] [address] Dr. Radha Gomez Monocytes/100 WBC (Bld) 9.5 % Normal 1.7-12.[address] [facility] Comment on above: Performed By: #### C MP #### [facility] [address] [place] [address] Dr. Radha Gomez NEUT # 5.0 103/ul Normal 1.4-6.[address] [facility] Comment on above: Performed By: #### C MP #### [facility] [address] [place] [address] Dr. Radha Gomez Neutrophils/100 WBC (Bld) 68.2 % Normal 43.0-75.[address] [facility] Comment on above: Performed By: #### C MP #### [facility] [address] [place] [address] Dr. Radha Gomez Platelet mean volume (Bld) [Entitic vol] 9.0 fL Critically low 9.5-13.5 [facility] Comment on above: Performed By: #### C MP #### [facility] [address] [place] [address] Dr. Radha Gomez PLT 183 103/ul Normal 150-450 [facility] Comment on above: Performed By: #### C MP #### [facility] [address] [place] [address] Dr. Radha Gomez RBC 5.30 106/ul Normal 4.70-6.10 [facility] Comment on above: Performed By: #### C MP #### [facility] [address] [place] [address] Dr. Radha Gomez WBC 7.3 103/ul Normal 4.0-11.0 [facility] Comment on above: Performed By: #### C MP #### [facility] [address] [place] [address] Dr. Radha Gmoez PROF CHEM 8 (BAS METB)on Anion gap [Moles/Vol] 11.7 mmol/L Normal [facility] Comment on above: Performed By: #### C MP #### [facility] [address] [place] [address] [address] Radha Gomez Calcium [Mass/Vol] 9.5 mg/dL Normal 8.5-10.1 [facility] Comment on above: Performed By: #### C MP #### [facility] [address] [place] [address] [address] Radha Gomez Chloride [Moles/Vol] 105 mmol/L Normal 98-107 [facility] Comment on above: Performed By: #### C MP #### [facility] [address] [address] [address] Radha Gomez CO2 [Moles/Vol] 27.5 mmol/L Normal 21.0-32.[address] [facility] Comment on above: Performed By: #### C MP #### [facility] [address] [address] [address] Radha Gomez Creatinine [Mass/Vol] 1.35 mg/dL Critically high 0.70-1.30 [facility] Comment on above: Performed By: #### C MP #### [facility] [address] [address] [address] Radha Gomez EGFR-AF SWISS >60 Normal >=[address] [facility] Comment on above: Performed By: #### C MP #### [facility] [address] [address] [address] Radha Gomez EGFR-NON AF SWISS 52 mL/min/1.73m2 Critically low >=60 [facility] Comment on above: Performed By: #### C MP #### [facility] [address] [place] [address] [address] Radha Gomez Glucose [Mass/Vol] 88 mg/dL Normal 74-106 [facility] Comment on above: Performed By: #### C MP #### [facility] [address] [address] [address] Radha Gomez Potassium [Moles/Vol] 4.2 mmol/L Normal 3.5-5.[address] [facility] Comment on above: Performed By: #### C MP #### [facility] [address] [address] [address] Radha Gomez Sodium [Moles/Vol] 140 mmol/L Normal 136-145 [facility] Comment on above: Performed By: #### C MP #### [facility] [address] [address] [address] Radha Gomez Urea nitrogen [Mass/Vol] 19.0 mg/dL Critically high 7.0-18.[address] [facility] Comment on above: Performed By: #### C MP #### [facility] [address] [address] [address] Radha Gomez Urea nitrogen/Creatinine [Mass ratio] 14.1 mg/mg Normal [facility] Comment on above: Performed By: #### C MP #### [facility] [address] [address] [address] Radha Gomez XR CHEST 2 Von [...] YANDY PÉREZ Date: 2022-11-02 08:42 Normal [facility] [...] YANDY MALONEY Date: 2022-06-21 15:47 Normal [facility] CT CHEST WO CONon 02-22-2022 CT CHEST [...] #### C BC #### [facility] [address] [address] [address] Radha Gomez Basophils/100 WBC (Bld) 0.6 % Normal 0.2-2.0 [facility] Comment on above: Performed By: #### C BC #### [facility] [address] [place] [address] Dr. Radha Gomez EO # 0.3 103/ul Normal 0.0-0.[address] [facility] Comment on above: Performed By: #### C BC #### [facility] [address] [place] [address] Dr. Radha Gomez Eosinophils/100 WBC (Bld) 3.1 % Normal 0.9-7.[address] [facility] Comment on above: Performed By: #### C BC #### [facility] [address] [place] [address] Dr. Radha Gomez Erythrocyte distribution width (RBC) [Ratio] 12.8 % Normal 11.0-15.[address] [facility] Comment on above: Performed By: #### C BC #### [facility] [address] [place] [address] Dr. Radha Gomez Hematocrit (Bld) [Volume fraction] 50.9 % Normal 42.0-54.[address] [facility] Comment on above: Performed By: #### C BC #### [facility] [address] [place] [address] Dr. Radha Gomez Hemoglobin (Bld) [Mass/Vol] 17.3 g/dL Normal 14.0-18.[address] [facility] Comment on above: Performed By: #### C BC #### [facility] [address] [place] [address] Dr. Radha Gomez IG # 0.02 10e3/ul Normal 0.00-0.[address] [facility] Comment on above: Performed By: #### C BC #### [facility] [address] [place] [address] Dr. Radha Gomez IG % 0.3 % Normal 0.0-0.[address] [facility] Comment on above: Performed By: #### C BC #### [facility] [address] [place] [address] Dr. Radha Gomez LYMPH # 1.4 103/ul Normal 1.2-3.8 [facility] Comment on above: Performed By: #### C BC #### [facility] [address] [place] [address] Dr. Radha Gomez Lymphocytes/100 WBC (Bld) 18.0 % Critically low 20.5-60.[address] [facility] Comment on above: Performed By: #### C BC #### [facility] [address] [place] [address] Dr. Radha Gomez MANUAL DIFF REQ NO Normal [facility] Comment on above: Performed By: #### C BC #### [facility] [address] [place] [address] Dr. Radha Gomez MCH (RBC) [Entitic mass] 31.3 pg Normal 25.9-34.[address] [facility] Comment on above: Performed By: #### C BC #### [facility] [address] [place] [address] Dr. Radha Gomez MCHC (RBC) [Mass/Vol] 34.0 g/dL Normal 29.9-35.[address] [facility] Comment on above: Performed By: #### C BC #### [facility] [address] [place] [address] Dr. Radha Gomez MCV (RBC) [Entitic vol] 92.0 fL Normal 80.0-94.[address] [facility] Comment on above: Performed By: #### C BC #### [facility] [address] [place] [address] Dr. Radha Gomez MONO # 0.7 103/ul Normal 0.3-0.8 [facility] Comment on above: Performed By: #### C BC #### [facility] [address] [place] [address] Dr. Radha Gomez Monocytes/100 WBC (Bld) 8.3 % Normal 1.7-12.0 [facility] Comment on above: Performed By: #### C BC #### [facility] [address] [place] [address] Dr. Radha Gomez NEUT # 5.5 103/ul Normal 1.4-6.5 [facility] Comment on above: Performed By: #### C BC #### [facility] [address] [place] [address] Dr. Radha Gomez Neutrophils/100 WBC (Bld) 69.7 % Normal 43.0-75.[address] [facility] Comment on above: Performed By: #### C BC #### [facility] [address] [place] [address] Dr. Radha Gomez Platelet mean volume (Bld) [Entitic vol] 9.3 fL Critically low 9.5-13.[address] [facility] Comment on above: Performed By: #### C BC #### [facility] [address] [place] [address] Dr. Radha Gomez PLT 168 103/ul Normal 150-450 [facility] Comment on above: Performed By: #### C BC #### [facility] [address] [place] [address] Dr. Radha Gomez RBC 5.53 106/ul Normal 4.70-6.10 [facility] Comment on above: Performed By: #### C BC #### [facility] [address] [place] [address] Dr. Radha Gomez WBC 7.9 103/ul Normal 4.0-11.0 [facility] Comment on above: Performed By: #### C BC #### [facility] [address] [place] [address] LUNG CANCER SCREENINGon [...] by: MARSHALL DAVISON Date: 2021-12-10 11:08 Normal [facility] PROF 14(COMP METB)on 12-10- 022 Albumin [Mass/Vol] 3.7 g/dL Normal 3.5-5.0 [facility] Comment on above: Performed By: #### C MP #### [facility] [address] [place] [address] Dr. Radha Gomez Albumin/Globulin [Mass ratio] 1.1 {ratio} Normal [facility] Comment on above: Performed By: #### C MP #### [facility] [address] [place] [address] Dr. Radha Gomez ALP [Catalytic activity/Vol] 92 U/L Normal 38-[address] [facility] Comment on above: Performed By: #### C MP #### [facility] [address] [place] [address] Dr. Radha Gomez ALT [Catalytic activity/Vol] 26 U/L Normal 21-[address] [facility] Comment on above: Performed By: #### C MP #### [facility] [address] [place] [address] Dr. Radha Gomez Anion gap [Moles/Vol] 13.0 mmol/L Normal [facility] Comment on above: Performed By: #### C MP #### [facility] [address] [place] [address] Dr. Radha Gomez AST [Catalytic activity/Vol] 20 U/L Normal 17-[address] [facility] Comment on above: Performed By: #### C MP #### [facility] [address] [address] [address] Radha Gomez Bilirubin [Mass/Vol] 1.1 mg/dL Normal 0.2-1.[address] [facility] Comment on above: Performed By: #### C MP #### [facility] [address] [address] [address] Radha Gomez Calcium [Mass/Vol] 9.3 mg/dL Normal 8.4-10.2 [facility] Comment on above: Performed By: #### C MP #### [facility] [address] [address] [address] Radha Gomez Chloride [Moles/Vol] 106 mmol/L Normal 98-[address] [facility] Comment on above: Performed By: #### C MP #### [facility] Laboratory [address] [address] [address] Radha Gomez CO2 [Moles/Vol] 23.4 mmol/L Normal 22.0-30.0 [facility] Comment on above: Performed By: #### C MP #### [facility] [address] [address] [address] Radha Gomez Creatinine [Mass/Vol] 1.39 mg/dL Critically high 0.66-1.[address] [facility] Comment on above: Performed By: #### C MP #### [facility] [address] [address] [address] Radha Gomez EGFR-AF SWISS >60 Normal >=[address] [facility] Comment on above: Performed By: #### C MP #### [facility] [address] [address] [address] Radha Gomez EGFR-NON AF SWISS 51 mL/min/1.73m2 Critically low >=[address] [facility] Comment on above: Performed By: #### C MP #### [facility] [address] [address] [address] Radha Gomez Globulin (S) [Mass/Vol] 3.4 g/dL Normal [facility] Comment on above: Performed By: #### C MP #### [facility] [address] [address] [address] Radha Gomez Glucose [Mass/Vol] 94 mg/dL Normal 74-106 [facility] Comment on above: Performed By: #### C MP #### [facility] [address] [address] [address] Radha Gomez Potassium [Moles/Vol] 4.4 mmol/L Normal 3.4-5.[address] [facility] Comment on above: Performed By: #### C MP #### [facility] [address] [address] [address] Radha Gomez Protein [Mass/Vol] 7.1 g/dL Normal 6.1-8.2 [facility] Comment on above: Performed By: #### C MP #### [facility] [address] [address] [address] Radha Gomez Sodium [Moles/Vol] 138 mmol/L Normal 137-145 [facility] Comment on above: Performed By: #### C MP #### [facility] [address] [address] [address] Radha Gomez Urea nitrogen [Mass/Vol] 23.0 mg/dL Critically high 9.0-20.[address] [facility] Comment on above: Performed By: #### C MP #### [facility] [address] [address] [address] Radha Gomez Urea nitrogen/Creatinine [Mass ratio] 16.5 mg/mg Normal [facility] Comment on above: Performed By: #### C MP #### [facility] [address] [address] [address] Radha Gomez XR LSPINE 2_3 VIEWSon [...] by: MARSHALL DAVISON Date: 2021-12-10 11:[address] [facility] Vital Signs Date Time Vital Sign Value Performing Clinician Facility 05-27-2025 15:04-0400 Diastolic blood pressure 70 mm[Hg] [facility] Work Phone: [facility] 05-27-2025 15:04-0400 Systolic blood pressure 110 mm[Hg] [facility] Work Phone: [facility] 04-17-2025 16:00-0400 Body height 182.9 cm Saul Pérez DPM Work Phone: [facility] 04-17-2025 16:00-0400 Body mass index (BMI) [Ratio] 28.62 kg/m2 Saul Pérez DPM Work Phone: [facility] 04-17-2025 16:00-0400 Body weight 95.71 kg Saul Pérez DPM Work Phone: [facility] 04-17-2025 16:00-0400 Respiratory rate 16 /min Saul Pérez DPM Work Phone: [facility] 03-11-2025 13:49-0400 Body mass index (BMI) [Ratio] 28.62 kg/m2 Darlene De Souza WAITSTAFF Work Phone: [facility] 03-11-2025 13:49-0400 Body temperature 98.49 [degF] Darlene De Souza WAITSTAFF Work Phone: [facility] 03-11-2025 13:49-0400 Body weight 95.71 kg Darlene De Souza WAITSTAFF Work Phone: [facility] 03-11-2025 13:49-0400 Diastolic blood pressure 80 mm[Hg] Darlene De Souza WAITSTAFF Work Phone: [facility] 03-11-2025 13:49-0400 Heart rate 68 /min Darlene De Souza WAITSTAFF Work Phone: [facility] 03-11-2025 13:49-0400 Respiratory rate 20 /min Darlene De Souza WAITSTAFF Work Phone: [facility] 03-11-2025 13:49-0400 SaO2% (BldA) [Mass fraction] 90 % Darlene De Souza WAITSTAFF Work Phone: [facility] 03-11-2025 13:49-0400 Systolic blood pressure 118 mm[Hg] Darlene De Souza WAITSTAFF Work Phone: [facility] 03-05-2025 13:46-0400 Body height 182.9 cm Alonso Hien DO Work Phone: [facility] 03-05-2025 13:46-0400 Body mass index (BMI) [Ratio] 28.35 kg/m2 Alonso Hien DO Work Phone: [facility] 03-05-2025 13:46-0400 Body weight 94.8 kg Alonso Hien DO Work Phone: [facility] 03-05-2025 13:46-0400 Diastolic blood pressure 84 mm[Hg] Alonso Hien DO Work Phone: [facility] 03-05-2025 13:46-0400 Heart rate 85 /min Alonso Hien DO Work Phone: [facility] 03-05-2025 13:46-0400 SaO2% (BldA) [Mass fraction] 93 % Alonso Hien DO Work Phone: [facility] 03-05-2025 13:46-0400 Systolic blood pressure 126 mm[Hg] Alonso Hien DO Work Phone: [facility] 01-23-2025 13:43-0400 Body height 185.4 cm Saul Pérez DPM Work Phone: [facility] 01-23-2025 13:43-0400 Body mass index (BMI) [Ratio] 27.57 kg/m2 Saul Pérez DPM Work Phone: [facility] 01-23-2025 13:43-0400 Body weight 94.8 kg Saul Pérez DPM Work Phone: [facility] 01-23-2025 13:43-0400 Diastolic blood pressure 88 mm[Hg] Saul Pérez DPM Work Phone: [facility] 01-23-2025 13:43-0400 Heart rate 70 /min Saul Pérez DPM Work Phone: [facility] 01-23-2025 13:43-0400 Systolic blood pressure 138 mm[Hg] Saul Pérez DPM Work Phone: [facility] 01-06-2025 13:16-0400 Body height 185.4 cm Darlene Chaz WAITSTAFF Work Phone: [facility] 01-06-2025 13:16-0400 Body mass index (BMI) [Ratio] 27.57 kg/m2 Darlene Aichholz WAITSTAFF Work Phone: [facility] 01-06-2025 13:16-0400 Body temperature 97.81 [degF] Darlene Aichholz WAITSTAFF Work Phone: [facility] 01-06-2025 13:16-0400 Body weight 94.8 kg Darlene Aichholz WAITSTAFF Work Phone: [facility] 01-06-2025 13:16-0400 Diastolic blood pressure 88 mm[Hg] Darlene Aichholz WAITSTAFF Work Phone: [facility] 01-06-2025 13:16-0400 Heart rate 70 /min Darlene Aichholz WAITSTAFF Work Phone: [facility] 01-06-2025 13:16-0400 Respiratory rate 19 /min Darlene Aichholz WAITSTAFF Work Phone: [facility] 01-06-2025 13:16-0400 SaO2% (BldA) [Mass fraction] 90 % Darlene De Souza WAITSTAFF Work Phone: [facility] 01-06-2025 13:16-0400 Systolic blood pressure 138 mm[Hg] Darlene De Souza WAITSTAFF Work Phone: [facility] 10-31-2024 09:17-0500 Body height 185.4 cm Saul Pérez DPM Work Phone: [facility] 10-31-2024 09:17-0500 Body mass index (BMI) [Ratio] 28.5 kg/m2 Saul Pérez DPM Work Phone: [facility] 10-31-2024 09:17-0500 Body weight 97.98 kg Saul Pérez DPM Work Phone: [facility] 10-31-2024 09:17-0500 Respiratory rate 18 /min Saul Pérez DPM Work Phone: [facility] 10-16-2024 09:48-0500 Body height 185.4 cm Linda Dempsey WAITSTAFF Work Phone: [facility] 10-16-2024 09:48-0500 Body mass index (BMI) [Ratio] 28.5 kg/m2 Linda Dempsey WAITSTAFF Work Phone: [facility] 10-16-2024 09:48-0500 Body temperature 97.59 [degF] Linda Dempsey WAITSTAFF Work Phone: [facility] 10-16-2024 09:48-0500 Body weight 97.98 kg Linda Dempsey WAITSTAFF Work Phone: [facility] 10-16-2024 09:48-0500 Diastolic blood pressure 86 mm[Hg] Linda Dempsey WAITSTAFF Work Phone: [facility] 10-16-2024 09:48-0500 Heart rate 97 /min Linda Dempsey WAITSTAFF Work Phone: [facility] 10-16-2024 09:48-0500 Respiratory rate 18 /min Linda Dempsey WAITSTAFF Work Phone: [facility] 10-16-2024 09:48-0500 SaO2% (BldA) [Mass fraction] 93 % Linda Dempsey WAITSTAFF Work Phone: [facility] 10-16-2024 09:48-0500 Systolic blood pressure 120 mm[Hg] Linda Dempsey WAITSTAFF Work Phone: [facility] 08-22-2024 09:34-0400 Body height 185.4 cm Saul Pérez DPM Work Phone: [facility] 08-22-2024 09:34-0400 Body mass index (BMI) [Ratio] 27.71 kg/m2 Saul Pérez DPM Work Phone: [facility] 08-22-2024 09:34-0400 Body weight 95.25 kg Saul Pérez DPM Work Phone: [facility] 08-22-2024 09:34-0400 Diastolic blood pressure 80 mm[Hg] Saul Pérez DPM Work Phone: [facility] 08-22-2024 09:34-0400 Heart rate 88 /min Saul Pérez DPM Work Phone: [facility] 08-22-2024 09:34-0400 Systolic blood pressure 126 mm[Hg] Saul Pérez DPM Work Phone: [facility] 07-08-2024 10:08-0400 Body height 185.4 cm Linda Dempsey WAITSTAFF Work Phone: [facility] 07-08-2024 10:08-0400 Body mass index (BMI) [Ratio] 27.71 kg/m2 Linda Dempsey WAITSTAFF Work Phone: [facility] 07-08-2024 10:08-0400 Body temperature 97.81 [degF] Linda Dempsey WAITSTAFF Work Phone: [facility] 07-08-2024 10:08-0400 Body weight 95.25 kg Linda Dempsey WAITSTAFF Work Phone: [facility] 07-08-2024 10:08-0400 Diastolic blood pressure 86 mm[Hg] Linda Dempsey WAITSTAFF Work Phone: [facility] 07-08-2024 10:08-0400 Heart rate 77 /min Linda Dempsey WAITSTAFF Work Phone: [facility] Comment on above: 96% O2 07-08-2024 10:08-0400 Systolic blood pressure 136 mm[Hg] Linda Dempsey WAITSTAFF Work Phone: [facility] 06-17-2022 10:30-0400 Body height 185.42 cm Rowena Haines Other [facility] Other 06-17-2022 10:30-0400 Body mass index (BMI) [Ratio] 28.36 kg/m2 Rowena Haines Other [facility] Other 06-17-2022 10:30-0400 Body temperature 97.7 [degF] Rowena Haines Other [facility] Other 06-17-2022 10:30-0400 Body weight 97.52 kg Rowena Haines Other [facility] Other 06-17-2022 10:30-0400 Diastolic blood pressure 93 mm[Hg] Rowena Haines Other [facility] Other 06-17-2022 10:30-0400 Respiratory rate 18 /min Rowena Haines Other [facility] Other 06-17-2022 10:30-0400 SaO2% (BldA) [Mass fraction] 95 % Rowena Haines Other [facility] Other 06-17-2022 10:30-0400 Systolic blood pressure 135 mm[Hg] Rowena Haines Other [facility] Other 03-08-2022 11:20-0400 Body height 185.42 cm Lisa Carrillos Other [facility] Other 03-08-2022 11:20-0400 Body mass index (BMI) [Ratio] 28.6 kg/m2 Azrafi [employer] Other [facility] Other 03-08-2022 11:20-0400 Body temperature 97.9 [degF] Lisa [employer] Other [facility] Other 03-08-2022 11:20-0400 Body weight 98.34 kg Azrafi Bakhous Other [facility] Other 03-08-2022 11:20-0400 Diastolic blood pressure 90 mm[Hg] Aziz [employer] Other [facility] Other 03-08-2022 11:20-0400 Respiratory rate 20 /min Aziz [employer] Other [facility] Other 03-08-2022 11:20-0400 SaO2% (BldA) [Mass fraction] 90 % Azrafi [employer] Other [facility] Other 03-08-2022 11:20-0400 Systolic blood pressure 130 mm[Hg] Lisa Lester Other [facility] [employer] Other Encounters Encounter Date Encounter Type Care Provider Facility Start: 06-05-2025 End: 06-06-2025 Refill Darlene Aichholz WAITSTAFF Work Phone: [facility] Comment on above: Vitamin D deficiency Start: 05-27-2025 End: 05-27-2025 ambulatory [facility] Work Phone: [facility] Work Phone: Start: 05-27-2025 End: 05-27-2025 Patient encounter procedure Katy Arellano PHARMACY INFORMATICS SPECIALIST [facility] [place] Work Phone: Start: 05-13-2025 End: 05-13-2025 Refill Darlene Aichholz WAITSTAFF Work Phone: [facility] Comment on above: Pulmonary emphysema, unspecified emphysema type (HCC) Start: 05-07-2025 End: 05-07-2025 Refill Darlene Aichholz WAITSTAFF Work Phone: [facility] Comment on above: Essential tremor; Vitamin D deficiency Start: 04-21-2025 End: 04-21-2025 [facility] Start: 04-17-2025 End: 04-17-2025 Patient encounter procedure Saul Pérez DPM Work Phone: [facility] Comment on above: Pain due to onychomy cosis of toenails of both feet (Primary Dx); Venous insufficiency Start: 04-17-2025 End: 04-17-2025 ambulatory SAUL PÉREZ Not Available Start: 04-17-2025 End: 04-17-2025 Bamboo flowsheet Saul Pérez DPM Work Phone: [facility] Start: 04-17-2025 End: 04-17-2025 Bamboo flowsheet Saul Jin Miriam DPM Work Phone: [facility] Start: 03-25-2025 End: 03-25-2025 Clinisync Result Encounter Alonso Adams DO Work Phone: [facility] Unsolicited Start: 03-25-2025 End: 03-25-2025 Clinisync Result Encounter Alonso Adams DO Work Phone: [facility] Unsolicited Start: 03-25-2025 End: 03-25-2025 Refill Darlene Nolvia WAITSTAFF Work Phone: [facility] Comment on above: Pulmonary emphysema, unspecified emphysema type (CMS/HCC) (Primary Dx) Start: 03-11-2025 End: 03-11-2025 Bamboo flowsheet Darlene Chaz WAITSTAFF Work Phone: [facility] Start: 03-11-2025 End: 03-11-2025 Bamboo flowsheet Darlene Aichholz WAITSTAFF Work Phone: [facility] Start: 03-11-2025 End: 03-11-2025 Office outpatient visit 15 minutes Darlenekhris De Souza WAITSTAFF Work Phone: [facility] Comment on above: Tremor (Primary Dx); Impacted cerumen of both ears; Chronic kidney disease, stage 3a (HCC) (CMS/HCC); Vitamin D deficiency; Vitamin B12 deficiency Start: 03-11-2025 End: 03-11-2025 ambulatory DARLENE AICHKRISTINEZ Not Available Start: 03-05-2025 End: 03-05-2025 Bamboo flowsheet Alonso Hien DO Work Phone: [facility] [place] Start: 03-05-2025 End: 03-05-2025 Bamboo flowsheet Alonso Hien DO Work Phone: [facility] [place] Start: 03-05-2025 End: 03-05-2025 Office outpatient new 45 minutes Alonso Hien DO Work Phone: [facility] Comment on above: Essential tremor (Pr imary Dx); Idiopathic peripheral neuropathy; Numbness and tingling; Vitamin B12 deficiency; Tremor Start: 03-05-2025 End: 03-05-2025 ambulatory ALONSO HIEN Not Available Start: 02-27-2025 End: 02-27-2025 Clinisync Result Encounter Darlene De Souza WAITSTAFF Work Phone: [facility] Unsolicited Start: 02-27-2025 End: 02-27-2025 Clinisync Result Encounter Darlene Nolvia WAITSTAFF Work Phone: [facility] Unsolicited Start: 02-27-2025 End: 02-27-2025 Refill Darlene De Souza WAITSTAFF Work Phone: [facility] Comment on [...] outpatient visit 25 minutes Darlene De Souza WAITSTAFF Work Phone: [facility] Comment on [...] encounter procedure Saul Pérez DPM Work Phone: [facility] Comment on above: Pain due to onychomy cosis of toenails of both feet (Primary Dx); Venous insufficiency Start: 10-31-2024 End: 10-31-2024 ambulatory SAUL PÉREZ Not Available Start: 10-16-2024 End: 10-16-2024 Bamboo flowsheet Linda Dempsey WAITSTAFF Work Phone: [facility] Start: 10-16-2024 End: 10-16-2024 Bamboo flowsheet Linda Dempsey WAITSTAFF Work Phone: [facility] Start: 10-16-2024 End: 10-16-2024 Patient encounter procedure Linda Dempsey WAITSTAFF Work Phone: [facility] Comment on [...] encounter procedure Saul Pérez DPM Work Phone: [facility] Comment on above: Pain due to onychomy cosis of toenails of both feet (Primary Dx); Venous insufficiency Start: 08-22-2024 End: 08-22-2024 ambulatory SAUL PÉREZ Not Available Start: 07-08-2024 End: 07-08-2024 Bamboo flowsheet Linda Mortonk WAITSTAFF Work Phone: [facility] Start: 07-08-2024 End: 07-08-2024 Bamboo flowsheet Linda Mortonk WAITSTAFF Work Phone: [facility] Start: 07-08-2024 End: 07-08-2024 Office outpatient visit 15 minutes Linda Dempsey WAITSTAFF Work Phone: [facility] Comment on above: Pulmonary emphysema, unspecified emphysema type (CMS/HCC) (Primary Dx); Stage 3a chronic kidney disease (HCC) (CMS/HCC); Impacted cerumen of both ears Start: 07-08-2024 End: 07-08-2024 ambulatory LINDA DEMPSEY Not Available Start: 06-13-2024 End: 06-13-2024 ambulatory SAUL PÉREZ Not Available Start: 04-24-2024 End: 04-24-2024 ambulatory SHAIKH DIANE Not Available Start: 10-10-2023 Patient encounter procedure Linda Dempsey WAITSTAFF Work Phone: [facility] Start: 07-07-2023 End: 07-07-2023 ambulatory SEBASTIAN [facility] Start: 01-25-2023 End: 01-25-2023 ambulatory SEBASTIAN [facility] Start: 11-10-2022 End: 11-11-[address] MARSHALL DAVISON Facility:[facility] Start: 11-02-2022 End: 11-03-2022 ambulatory YANDY MIRIAM Facility:[facility] Start: 06-28-2022 End: 07-22-2022 ambulatory BARKER H DIANE Facility:[facility] Start: 06-21-2022 End: 06-22-2022 ambulatory BARKER H DIANE Facility:[facility] Start: 06-17-2022 End: 06-17-2022 ambulatory Rowena Haines Other [facility] Other Start: 06-17-2022 Office outpatient vi sit 15 minutes Rowena Yancy [facility] Start: 03-08-2022 End: 03-08-2022 ambulatory Aziz Bakhous Other [facility] Other Start: 03-08-2022 Office outpatient ne w 30 minutes Aziz Bakhous [facility] Start: 02-22-2022 End: 02-23-2022 ambulatory Bobby DIANE Facility:[facility] Start: 12-10-2021 End: 12-11-2021 ambulatory RICHELLE Yang AUDI Facility:[facility] Start: 02-27-2018 End: 02-28-2018 Ambulatory DEFAULT PHYSICIAN Facility:[facility] Procedures Date Procedure Procedure Detail Performing Clinician Start: 03-25-2025 ALL FOLIC ACID Alonso abdul DO Work Phone: Start: 02-27-2025 ALL CBC WITH AUTO DIFF Darlene Nolvia WAITSTAFF Work Phone: Start: 01-08-2025 CT CHEST WO CON Generic External Data Provider Start: 10-30-2017 Colonoscopy Linda rosario WAITSTAFF Work Phone: Plan of Treatment Date Care Activity Detail Author Start: 10-30-2027 Screening for malign ant neoplasm of colon [facility] Start: 10-16-2025 Medicare Annual Well ness (AWV) Medicare Annual Wellness (AWV) [facility] Start: 07-07-2025 End: 07-07-2025 Patient encounter procedure 07/07/2025 1:00 PM EDT Office Visit [facility] [address] [place] [address] Darlene De Souza, BLANQUITA [address] [place] [address] [facility] Start: 06-30-2025 Influenza vaccination Influenza Vacc ine (#1) [facility] Start: 06-26-2025 End: 06-26-2025 Patient encounter procedure 06/26/2025 2:20 PM EDT Procedure Visit [facility] [address] [facility] [address] [place] [id number] Saul Pérez DPM [address] [facility] [address] [place] [address] [facility] Start: 06-11-2025 End: 06-11-2025 Patient encounter procedure 06/11/2025 1:00 PM EDT Office Visit [facility] [address] [place] [address] Darlene De Souza, BLANQUITA [address] [place] [id number] [facility] Start: 05-27-2025 End: 05-27-2025 Patient encounter procedure 05/27/2025 2:40 PM EDT Office Visit [facility] [address] [place] [address] Katy Floyd NP [address] [place], [place] [facility] Start: 05-07-2025 End: 05-07-2026 25-hydroxyvitamin D3 [Mass/volume] in Serum or Plasma Vitamin D 25 hydroxy Lab Routine Vitamin D deficiency Expected: 05/07/2025 (Approximate), Expires: 05/07/2026 [facility] Work Phone: Comment on above: Expected: 05/07/2025 (Approximate), Expires: 05/07/2026 Start: 04-21-2025 End: 04-21-2025 Patient encounter procedure 04/21/2025 10:30 AM EDT Procedure Visit [facility] [address] [facility] [address] [place] [phone] Alonso Adams DO [address] [place] [address] [facility] Start: 04-17-2025 End: 04-17-2025 Patient encounter procedure 04/17/2025 4:00 PM EDT Procedure Visit [facility] [address] [place] [address] Saul Pérez DPM [address] [facility] [address] [place] [address] Pain due to onychomycosis of toenails of both feet (Primary Dx); Venous insufficiency [facility] Comment on above: Pain due to onychomy cosis of toenails of both feet (Primary Dx); Venous insufficiency Start: 04-03-2025 End: 04-03-2025 Patient encounter procedure 04/03/2025 3:00 PM EDT Procedure Visit [facility] [address] [place] [address] Saul Pérez DPM [address] [facility] [address] [place] [address] [facility] Start: 03-11-2025 End: 03-11-2025 [...] 03-05-2025 End: 03-05-2025 Patient encounter procedure [facility] Comment on above: Tremor Start: 03-05-2025 End: 03-05-2026 Protein electrophoresis, serum Protein electrophoresis, serum Lab Routine Idiopathic peripheral neuropathy Expected: 03/05/2025 (Approximate), Expires: 03/05/2026 [facility] Comment on above: Expected: 03/05/2025 (Approximate), Expires: 03/05/2026 Start: 01-23-2025 End: 01-23-2025 Patient encounter procedure [facility] Comment on above: Pain due to onychomy cosis of toenails of both feet (Primary Dx); Venous insufficiency Start: 01-16-2025 End: 01-16-2025 Patient encounter procedure 01/16/2025 9:40 AM EDT Procedure Visit [facility] [address] [facility] [address] [place] [address] Saul Pérez DPM [address] [facility] [address] [place] [address] [facility] Start: 01-06-2025 End: 01-06-2026 25-hydroxyvitamin D3 [Mass/volume] in Serum or Plasma Vitamin D 25 hydroxy Lab Routine Chronic kidney disease, stage 3a (HCC) (CMS/HCC) Expected: 01/06/2025 (Approximate), Expires: 01/06/2026 [facility] Comment on above: Expected: 01/06/2025 (Approximate), Expires: 01/06/2026 Start: 01-06-2025 End: 01-06-2026 CBC W Auto Differential panel - Blood CBC and differential Lab Routine Centrilobular emphysema (CMS/HCC) Chronic respiratory failure with hypoxia (CMS/HCC) Chronic kidney disease, stage 3a (HCC) (CMS/HCC) Expected: 01/06/2025 (Approximate), Expires: 01/06/2026 [facility] Work Phone: Comment on above: Expected: 01/06/2025 (Approximate), Expires: 01/06/2026 Start: 01-06-2025 End: 01-06-2026 Cobalamin (Vitamin B12) [Mass/volume] in Serum or Plasma Vitamin B12 Lab Routine Tremor Expected: 01/06/2025 (Approximate), Expires: 01/06/2026 [facility] Comment on above: Expected: 01/06/2025 (Approximate), Expires: 01/06/2026 Start: 01-06-2025 End: 01-06-2026 Comprehensive metabolic 2000 panel - Serum or Plasma Comprehensive metabolic panel Lab Routine Chronic kidney disease, stage 3a (HCC) (CMS/HCC) Expected: 01/06/2025 (Approximate), Expires: 01/06/2026 [facility] Comment on above: Expected: 01/06/2025 (Approximate), Expires: 01/06/2026 Start: 01-06-2025 End: 01-06-2026 Magnesium [Mass/volume] in Serum or Plasma Magnesium Lab Routine Myalgia Expected: 01/06/2025 (Approximate), Expires: 01/06/2026 [facility] Comment on above: Expected: 01/06/2025 (Approximate), Expires: 01/06/2026 Start: 01-06-2025 End: 01-06-2026 Microalbumin/Creatinine panel in random Urine Microalbumin / creatinine, urine ratio Lab Routine Chronic kidney disease, stage 3a (HCC) ([facility]/HCC) Expected: 01/06/2025 (Approximate), Expires: 01/06/2026 [facility] Comment on above: Expected: 01/06/2025 (Approximate), Expires: 01/06/2026 Start: 01-06-2025 End: 01-06-2026 Thyrotropin [Units/volume] in Serum or Plasma TSH Lab Routine Tremor Expected: 01/06/2025 (Approximate), Expires: 01/06/2026 [facility] Comment on above: Expected: 01/06/2025 (Approximate), Expires: 01/06/2026 Start: 01-06-2025 End: 01-06-2026 Thyroxine (T4) free [Mass/volume] in Serum or Plasma T4, free Lab Routine Tremor Expected: 01/06/2025 (Approximate), Expires: 01/06/2026 [facility] Comment on above: Expected: 01/06/2025 (Approximate), Expires: 01/06/2026 Start: 01-06-2025 End: 01-06-2026 Triiodothyronine (T3) Free [Mass/volume] in Serum or Plasma T3, free Lab Routine Tremor Expected: 01/06/2025 (Approximate), Expires: 01/06/2026 [facility] Comment on above: Expected: 01/06/2025 (Approximate), Expires: 01/06/2026 Start: 01-06-2025 End: 01-06-2026 Urinalysis complete panel - Urine Urinalysis with reflex microscopic (clean catch) Lab Routine Chronic kidney disease, stage 3a (HCC) ([facility]/HCC) Expected: 01/06/2025 (Approximate), Expires: 01/06/2026 [facility] Comment on above: Expected: 01/06/2025 (Approximate), Expires: 01/06/2026 Start: 01-06-2025 End: 01-06-2025 Patient encounter procedure 01/06/2025 9:00 AM EDT Office Visit [facility] [address] [place] [address] Linda Dempsey NP [address] [place] [address] [facility] Start: 11-21-2024 End: 11-21-2024 Patient encounter procedure 11/21/2024 9:00 AM EST Office Visit [facility] [address] [place] [address] Linda Dempsey, BLANQUITA [address] [place] [address] [facility] Start: 10-31-2024 End: 10-31-2024 Patient encounter procedure [facility] Comment on above: Pain due to onychomy cosis of toenails of both feet (Primary Dx); Venous insufficiency Start: 10-17-2024 End: 10-17-2024 Patient encounter procedure [facility] Start: 10-16-2024 End: 10-16-2024 Patient encounter procedure 10/16/2024 10:00 AM EST Office Visit [facility] [address] [place] [address] Linda Dempsey, BLANQUITA [address] [place] [address] Arrived [facility] Comment on above: Arrived Start: 10-10-2024 Medicare Annual Well ness (AWV) Medicare Annual Wellness (AWV) [facility] Start: 10-07-2024 End: 10-07-2024 Patient encounter procedure 10/07/2024 9:00 AM EST Office Visit [facility] [address] [place] [address] Linda Dempsey, WAITSTAFF [address] [place] [address] [facility] Start: 08-22-2024 End: 08-22-2024 Patient encounter procedure 08/22/2024 2:20 PM EDT [facility] [address] [facility] [address] [place] [address] Saul Pérez DPM [address] [address] [facility] Start: 08-22-2024 End: 08-22-2024 Patient encounter procedure 08/22/2024 9:20 AM EDT Procedure [facility] [address] [facility] [address] [place] [address] Saul Pérez DPM [address] [address] Pain due to onychomycosis of toenails of both feet (Primary Dx); Venous insufficiency [facility] Comment on above: Pain due to onychomy cosis of toenails of both feet (Primary Dx); Venous insufficiency Start: 07-08-2024 End: 07-08-2024 Patient encounter procedure 07/08/2024 10:00 AM EDT [facility] [address] [place] [phone] Linda Dempsey NP [address] [place] [address] Arrived [facility] Comment on above: Arrived Start: 06-30-2024 Influenza vaccination Influenza Vacc ine (#1) [facility] Start: 1950 Screening for malign ant neoplasm of colon [facility] Immunizations Immunization Date Immunization Notes Care Provider Fa cility 08-02-2024 Pneumococcal Conjuga te PCV 20 Darlene De Souza WAITSTAFF Work Phone: [facility] 08-02-2024 SARS-COV-2 (COVID-19 ) vaccine, mRNA, spike protein, LNP, preservative free, 25 mcg/0.25 mL dose CVX 311 Darlene Aichholz WAITSTAFF Work Phone: [facility] 08-02-2024 Seasonal trivalent influenza vaccine, adjuvanted, preservative free Darlene Aichholz WAITSTAFF Work Phone: [facility] 08-02-2024 influenza virus vacc ine, unspecified formulation Saul Pérez DPM Work Phone: [facility] 09-29-2023 influenza, high dose seasonal, preservative-free Linda Dempsey WAITSTAFF Work Phone: [facility] 09-29-2023 influenza virus vacc ine, unspecified formulation Linda Dempsey WAITSTAFF Work Phone: [facility] 08-22-2023 Influenza, Seasonal, Quadrivalent, Adjuvanted Darlene Aichholz WAITSTAFF Work Phone: [facility] 08-01-2022 Seasonal trivalent influenza vaccine, adjuvanted, preservative free Darlene Aichholz WAITSTAFF Work Phone: [facility] 08-09-2021 Seasonal trivalent influenza vaccine, adjuvanted, preservative free Darlene Aichholz WAITSTAFF Work Phone: [facility] 08-06-2020 pneumococcal polysaccharide vaccine, 23 valent Darlene Aichholz WAITSTAFF Work Phone: [facility] 08-06-2020 Seasonal trivalent influenza vaccine, adjuvanted, preservative free Darlene Aichholz WAITSTAFF Work Phone: [facility] 08-05-2019 influenza, injectabl e, quadrivalent, contains preservative Darlene Aichholz WAITSTAFF Work Phone: [facility] 12-15-2016 influenza, injectabl e, quadrivalent, preservative free Darlene Aichholz WAITSTAFF Work Phone: [facility] Payers Date Payer Category Payer Private Health Insurance [employer] [id number] 2021 Unknown 2015 Medicare [id number] 1959 Medicare [id number] [id number] 1958 Medicare [id number] 2.16.840.1.877530.19 1951 Unknown [id number] 2.16.840.1.255504.3.579.2. 593 1951 Unknown [id number] 2.16.840.1.489645.3.579.2. 593 1951 Unknown [id number] 2.16.840.1.194676.3.579.2. 593 1951 Unknown [id number] 2.16.840.1.950106.3.579.2. 593 1951 Unknown [id number] 2.16.840.1.655877.3.579.2. 593 1951 Unknown [id number] 2.16.840.1.934810.3.579.2. 593 1951 Unknown [id number] 2.16.840.1.407375.3.579.2. 1259 1951 Unknown [id number] 2.16.840.1.429019.3.579.2. 1259 1951 Unknown [id number] 2.16.840.1.179918.3.579.2. 1259 1951 Unknown [id number] 2.16.840.1.996312.3.579.2. 1259 1951 Unknown [id number] 2.16.840.1.969381.3.579.2. 9 1950 Unknown [id number] 2.16.840.1.227847.3.579.2. 9 1950 Unknown [id number] 2.16.840.1.438722.3.579.2. 1258 1951 Unknown [id number] 2.16.840.1.989695.3.579.2. 1258 1951 Unknown [id number] 2.16.840.1.245972.3.579.2. 9 1950 Unknown [id number] 2.16.840.1.636524.3.579.2. 1258 1950 Unknown [id number] 2.16.840.1.960930.3.579.2. 1259 Social History Date Type Detail Facility Unknown if ever smoked [facility] Other Start: 07-08-2024 End: 10-16-2024 Sex Assigned At [facility] Start: 04-24-2024 [facility] History of tobacco use Current smoker [facility] History of tobacco use Cigarette Smoker [facility] Start: 04-24-2024 End: 10-16-2024 Cigarettes smoked current (pack per day) - Reported 1 [facility] History of tobacco use Passive smoker [facility] Start: 04-24-2024 Tobacco use and exposure Smokeless tobacco non-user [facility] Start: 07-08-2024 End: 04-17-2025 Alcoholic beverage intake Lifetime non-drinker (finding) [facility] Start: 1950 Sex assigned at Not on file [place] [facility] Tobacco smoking stat [facility] Unknown if ever smoked [facility] Work Phone: Sex Male (finding) [facility] Start: 1950 Sex Assigned At Male [facility] Clinical Notes 03-08-2022 to 06-06-2025 Note Date & Type Note Facility 06-06-2025 Evaluation note Diagnosis Stage 3a chronic kidney disease (CMS-HCC)- Primary Encounter for Medicare annual wellness exam Pulmonary emphysema, unspecified emphysema type (HCC) COPD with exacerbation (HCC) Stage 3a chronic kidney disease (CMS-HCC)- Primary Pulmonary emphysema, unspecified emphysema type (HCC) Subconjunctival hemorrhage of left eye Pulmonary emphysema, unspecified emphysema type (HCC)- Primary Stage 3a chronic kidney disease (CMS-HCC) Pulmonary emphysema, unspecified emphysema type (HCC)- Primary Stage 3a chronic kidney disease (CMS-HCC) Impacted cerumen of both ears Impacted cerumen Screening for prostate cancer- Primary Special screening for malignant neoplasm of prostate Centrilobular emphysema (HCC) Chronic respiratory failure with hypoxia (HCC) Chronic kidney disease, stage 3a (CMS-HCC) Bronchiectasis, uncomplicated (HCC) Myalgia Unspecified myalgia and myositis Tremor Abnormal involuntary movements Impacted cerumen of both ears Impacted cerumen Tremor- Primary Abnormal involuntary movements Impacted cerumen of both ears Impacted cerumen Chronic kidney disease, stage 3a (CMS-HCC) Vitamin D deficiency Vitamin B12 deficiency Other B-complex deficiencies Vitamin D deficiency documented [facility] this encounter [id number] [facility] note* Diagnosis Stage 3a chronic kidney disease (CMS-HCC)- Primary Encounter for Medicare annual wellness exam Pulmonary emphysema, unspecified emphysema type (HCC) COPD with exacerbation (HCC) Stage 3a chronic kidney disease (CMS-HCC)- Primary Pulmonary emphysema, unspecified emphysema type (HCC) Subconjunctival hemorrhage of left eye Pulmonary emphysema, unspecified emphysema type (HCC)- Primary Stage 3a chronic kidney disease (CMS-HCC) Pulmonary emphysema, unspecified emphysema type (HCC)- Primary Stage 3a chronic kidney disease (CMS-HCC) Impacted cerumen of both ears Impacted cerumen Screening for prostate cancer- Primary Special screening for malignant neoplasm of prostate Centrilobular emphysema (HCC) Chronic respiratory failure with hypoxia (HCC) Chronic kidney disease, stage 3a (CMS-HCC) Bronchiectasis, uncomplicated (HCC) Myalgia Unspecified myalgia and myositis Tremor Abnormal involuntary movements Impacted cerumen of both ears Impacted cerumen Tremor- Primary Abnormal involuntary movements Impacted cerumen of both ears Impacted cerumen Chronic kidney disease, stage 3a ([facility]) Vitamin D deficiency Vitamin B12 deficiency Other B-complex deficiencies Pulmonary emphysema, unspecified emphysema type ([facility]) documented [facility] this encounter [facility] [id number] History of Present illness Narrative* Saul Jin Miriam, DPM - 04/17/2025 4:00 PM EDT Patient: Martin Dawn : 1950 [...] HTN CKD (chronic kidney disease), stage III ([facility]) COPD (chronic obstructive pulmonary disease) ([facility]) GOLDEN (dyspnea on exertion) Dyslipidemia (high LDL; low HDL) Essential tremor Left hip pain Muscle cramping Neurogenic claudication due to lumbar spinal stenosis Pain in left lumbar region of back Personal history of nicotine dependence Shortness of breath on exertion Medications: Current Outpatient Medications: albuterol HFA 90 mcg/act inhaler, Inhale 2 puffs every 6 (six) hours if needed for wheezing or shortness of breath, Disp: 18 g, Rfl: 1 Cvcttepwkyu-Wqcaltpbj-Medjgs (Trelegy Ellipta) 200-62.5-25 MCG/ACT aerosol powder , Inhale 1 puff Daily, Disp: , Rfl: propranolol LA (Inderal LA) 60 MG 24 hr capsule, Take 1 capsule (60 mg) by mouth Daily Do not crush, chew, or split., Disp: 30 capsule, Rfl: 2 Social History: Social History Socioeconomic History Marital [...] Partner Violence: Unknown (12/21/2023) Received from [facility] Safety & Environment Fear of Current or [...] 10 Saul Pérez DPM documented in this encounterFreeman Health SystemCwdozbswkb22-07-2748 Evaluation note* Diagnosis Stage 3a chronic kidney disease ([facility]-HCC)- Primary Encounter for Medicare annual wellness exam Pulmonary emphysema, unspecified emphysema type (HCC) COPD with exacerbation (HCC) Stage 3a chronic kidney disease (CMS-HCC)- Primary Pulmonary emphysema, unspecified emphysema type (HCC) Subconjunctival hemorrhage of left eye Pulmonary emphysema, unspecified emphysema type (HCC)- Primary Stage 3a chronic kidney disease (CMS-HCC) Pulmonary emphysema, unspecified emphysema type (HCC)- Primary Stage 3a chronic kidney disease (CMS-HCC) Impacted cerumen of both ears Impacted cerumen Screening for prostate cancer- Primary Special screening for malignant neoplasm of prostate Centrilobular emphysema (HCC) Chronic respiratory failure with hypoxia (HCC) Chronic kidney disease, stage 3a (CMS-HCC) Bronchiectasis, uncomplicated (HCC) Myalgia Unspecified myalgia and myositis Tremor Abnormal involuntary movements Impacted cerumen of both ears Impacted cerumen Tremor- Primary Abnormal involuntary movements Impacted cerumen of both ears Impacted cerumen Chronic kidney disease, stage 3a (CMS-HCC) Vitamin D deficiency Vitamin B12 deficiency Other B-complex deficiencies Pain due to onychomycosis of toenails of both feet- Primary Venous insufficiency Unspecified venous (peripheral) insufficiency documented [facility] this encounter [facility] [id number] Evaluation note* Diagnosis Stage 3a chronic kidney [...] B-complex deficiencies Pulmonary emphysema, unspecified emphysema type (CMS/HCC)- Primary documented in this encounter [facility] [id number] History of Present illness Narrative* Darlene De [...] Problem(s): Chronic kidney disease, stage 3a (HCC) (CMS/HCC) [...] cholecalciferol (VITAMIN D-3) 125 mcg, Oral, Daily Rvyhdwlpsug-Edjyrzrom-Skcwua (Trelegy Ellipta) 200-62.5-25 MCG/ACT aerosol powder 1 [...] CKD (chronic kidney disease), stage III (HCC) ([facility]) COPD (chronic obstructive pulmonary disease) ([facility]) GOLDEN (dyspnea on exertion) Dyslipidemia (high LDL; low HDL) ([facility]) Essential [...] Visit Chronic kidney disease, stage 3a (HCC) ([facility]) Continue to monitor, appears to be stable [...] propranolol at appt 03/05/25 documented in this encounterFreeman Health [id number] Evaluation note* Diagnosis Stage 3a chronic kidney disease (HCC) ([facility])- Primary Encounter for Medicare annual wellness exam [...] Other B-complex deficiencies documented in this encounter [facility] [id number] History of Present illness Narrative* Alonso Adams, - 03/05/2025 2:00 PM EDT Images from the original note were not included. Chief Complaint Patient presents with Tremors Subjective Martinlashanda Dawn, 75 y.o., male new patient here [...] comes and goes. 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 and [...] CKD (chronic kidney disease), stage III (HCC) ([facility]) COPD (chronic obstructive pulmonary disease) ([facility]) GOLDEN (dyspnea on exertion) Dyslipidemia (high LDL; low HDL) ([facility]) Essential [...] to clinic: 2 months documented in this encounterFreeman Health [id number] Evaluation note* Diagnosis Stage 3a chronic kidney disease (HCC) (CMS/HCC)- Primary Encounter for Medicare annual wellness exam Pulmonary emphysema, unspecified emphysema type ([facility]/HCC) COPD with exacerbation ([facility]/HCC) Stage 3a chronic kidney disease (HCC) (CMS/HCC)- [...] Abnormal involuntary movements documented in this encounter [facility] [id number] Evaluation note* Diagnosis Stage 3a chronic kidney disease (HCC) (CMS/HCC)- Primary Encounter for Medicare annual wellness exam Pulmonary emphysema, unspecified emphysema type (CMS/HCC) COPD with exacerbation (CMS/HCC) Stage 3a chronic kidney disease (HCC) ([facility]/HCC)- Primary Pulmonary emphysema, unspecified emphysema type ([facility]/HCC) Subconjunctival hemorrhage of left eye Pulmonary emphysema, unspecified emphysema type (CMS/HCC)- Primary Stage 3a chronic kidney disease (HCC) (CMS/HCC) Pulmonary emphysema, unspecified emphysema type (CMS/HCC)- Primary Stage 3a chronic kidney disease (HCC) ([facility]/HCC) Impacted cerumen of both ears Impacted cerumen Screening for prostate cancer- Primary Special screening for malignant neoplasm of prostate Centrilobular emphysema ([facility]/HCC) Chronic respiratory failure with hypoxia ([facility]/HCC) Chronic kidney disease, stage 3a (HCC) ([facility]/HCC) Bronchiectasis, uncomplicated ([facility]/HCC) Myalgia Unspecified myalgia and myositis Tremor Abnormal involuntary movements Impacted cerumen of both ears Impacted cerumen Vitamin D deficiency- Primary documented in this encounter [facility] [id number] History of Present illness Narrative* Saul Pérez, ALIA - 01/23/2025 1:50 PM EDT Patient: Martin [...] (HCC) (CMS/HCC) COPD (chronic obstructive pulmonary disease) ([facility]/HCC) GOLDEN (dyspnea on exertion) Dyslipidemia (high LDL; low HDL) (CMS/HCC) Essential tremor Left hip pain Muscle cramping Neurogenic claudication due to lumbar spinal stenosis Pain in left lumbar region of back Personal history of nicotine dependence Shortness of breath on exertion Medications: Current Outpatient Medications: albuterol HFA 90 mcg/act inhaler, Inhale 2 puffs every 4 (four) hours if needed for wheezing, Disp:, Rfl: Stosalaphcg-Nhlyfogxm-Xtiamd (Trelegy Ellipta) 200-62.5-25 MCG/ACT aerosol powder , [...] Partner Violence: Unknown (12/21/2023) [facility] [place] Safety [facility] Environment Fear of [...] 10 Saul Pérez DPM documented in this encounterFreeman Health [id number] Evaluation note* Diagnosis Stage 3a chronic kidney disease (HCC) ([facility]/HCC)- Primary Encounter for Medicare annual wellness exam Pulmonary emphysema, unspecified emphysema type ([facility]/HCC) COPD with exacerbation ([facility]/HCC) Stage 3a chronic kidney disease (HCC) ([facility]/HCC)- Primary Pulmonary emphysema, unspecified emphysema type ([facility]/HCC) Subconjunctival hemorrhage of left eye Pulmonary emphysema, unspecified emphysema type (CMS/HCC)- Primary Stage 3a chronic kidney disease (HCC) ([facility]/HCC) Pulmonary emphysema, unspecified emphysema type (CMS/HCC)- Primary Stage 3a chronic kidney disease (HCC) ([facility]/HCC) Impacted cerumen of both ears Impacted cerumen Screening for prostate cancer- Primary Special screening for malignant neoplasm of prostate Centrilobular emphysema ([facility]/HCC) Chronic respiratory failure with hypoxia ([facility]/HCC) Chronic kidney disease, stage 3a (HCC) ([facility]/HCC) Bronchiectasis, uncomplicated ([facility]/HCC) Myalgia Unspecified myalgia and myositis Tremor Abnormal involuntary movements Impacted cerumen of both ears Impacted cerumen Pain due to onychomycosis of toenails of both feet- Primary Venous insufficiency Unspecified venous (peripheral) insufficiency documented [facility] this encounter [facility] [id number] History of Present illness Narrative* Darlene De Souza NP - 01/06/2025 2:23 PM EDTAssociated Problem(s): Tremor No family hx of parkinson's Was told some time ago had essential tremors We discussed this, as well as other etiologies Will order some labs and refer to Neurology for evaluation Fu w nj in 8 weeks * Darlene De Souza [...] any vitamins or supplements * Darlene De Souza NP - 01/06/2025 1:20 PM EDT Images from [...] inhaler 2 puffs, Every 4 hours PRN Dhxclypshzb-Euftptcbp-Ykuzwg (Trelegy Ellipta) 200-62.5-25 MCG/ACT aerosol powder 1 [...] [facility]) COPD (chronic obstructive pulmonary disease) ([facility]) GOLDEN (dyspnea on exertion) Dyslipidemia (high LDL; low HDL) ([facility]) Essential [...] refer to Neurology for evaluation Fu w nj in 8 weeks Relevant Orders TSH T4, [...] pneumonia and COVID vaccines documented in this encounterFreeman Health [id number] Instructions* Patient Instructions* Darlene De Souza NP - 01/06/2025 1:20 PM EDT Check labs Refer to neurology documented in this encounterFreeman Health [id number] Evaluation note* Diagnosis Stage 3a chronic kidney disease (HCC) (CMS/HCC)- Primary Encounter for Medicare annual wellness exam Pulmonary emphysema, unspecified emphysema type ([facility]/HCC) COPD with exacerbation (CMS/HCC) Stage 3a chronic [...] ears Impacted cerumen documented in this encounter [facility] [id number] History of Present illness Narrative* Saul Pérez DPM - 10/31/2024 9:30 AM EST Patient: Martin [...] CKD (chronic kidney disease), stage III (HCC) ([facility]) COPD (chronic obstructive pulmonary disease) ([facility]) GOLDEN (dyspnea on exertion) Dyslipidemia (high LDL; low HDL) ([facility]) Essential tremor Left hip pain Muscle cramping Neurogenic claudication due to lumbar spinal stenosis Pain in left lumbar region of back Personal history of nicotine dependence Shortness of breath on exertion Medications: Current Outpatient Medications: albuterol HFA 90 mcg/act inhaler, Inhale 2 puffs every 4 (four) hours if needed for wheezing, Disp:, Rfl: Wwdlgkgjjem-Eorzyostq-Fprtsl (Trelegy Ellipta) 200-62.5-25 MCG/ACT aerosol powder , [...] Partner Violence: Unknown (12/21/2023) [facility] [place] [facility] Fear of [...] 10 Saul Pérez DPM documented in this encounterFreeman Health [id number] Evaluation note* Diagnosis Stage 3a chronic kidney disease (HCC) ([facility])- Primary Encounter for Medicare annual wellness exam Pulmonary emphysema, unspecified emphysema type ([facility]) COPD with exacerbation ([facility]) Stage 3a chronic kidney disease (HCC) ([facility])- Primary Pulmonary emphysema, unspecified emphysema type ([facility]/HCC) Subconjunctival hemorrhage of left eye Pulmonary emphysema, unspecified emphysema type ([facility]/HCC)- Primary Stage 3a chronic kidney disease (HCC) ([facility]/HCC) Pulmonary emphysema, unspecified emphysema type ([facility]/HCC)- Primary Stage 3a chronic kidney disease (HCC) ([facility]/HCC) Impacted cerumen of both ears Impacted cerumen Pain due to onychomycosis of toenails of both feet- Primary Venous insufficiency Unspecified venous (peripheral) insufficiency documented in this encounter [facility] [id number] History of Present illness Narrative* Linda Dempsey [...] 4 (four) hours if needed for wheezing Cnqnbugmbci-Sffivcnnq-Ogdief (Trelegy Ellipta) 200-62.5-25 MCG/ACT aerosol powder Inhale [...] Yes Cognitive Screening Three Word Registration: Bakari Suarez, Finger Clock Drawing: Normal Clock - 2 Three Word Recall: All 3 words correct - 3 Total Score (0-5 Points): 5 Advance Care Planning Do you have a living will?: No Do you have a medical power of employment supervisor?: No Objective : BP 120/86 Pulse 97 [...] on October 16, 2024 documented in this encounterFreeman Health [id number] History of Present illness Narrative* Saul Pérez, DPM - 08/22/2024 9:20 AM EDT Patient: [...] on exertion) Dyslipidemia (high LDL; low HDL) (CMS/[facility]) Essential tremor Left hip pain Muscle cramping Neurogenic claudication due to lumbar spinal stenosis Pain in left lumbar region of back Personal history of nicotine dependence Shortness of breath on exertion Medications: Current Outpatient Medications: albuterol HFA 90 mcg/act inhaler, Inhale 2 puffs every 4 (four) hours if needed for wheezing, Disp:, Rfl: Jnqtbcpgawd-Fapovctof-Pijjwn (Trelegy Ellipta) 200-62.5-25 MCG/ACT aerosol powder , [...] Partner Violence: Unknown (12/21/2023) [facility] [place] [facility] Fear of [...] 10 Saul Pérez DPM documented in this encounterFreeman Health [id number] Evaluation note* Diagnosis Stage 3a chronic kidney disease (HCC) ([facility]/HCC)- Primary Encounter for Medicare annual wellness exam Pulmonary emphysema, unspecified emphysema type ([facility]/HCC) COPD with exacerbation ([facility]/HCC) Stage 3a chronic kidney disease (HCC) ([facility]/HCC)- Primary Pulmonary emphysema, unspecified emphysema type ([facility]/HCC) Subconjunctival hemorrhage of left eye Pulmonary emphysema, unspecified emphysema type ([facility]/HCC)- Primary Stage 3a chronic kidney disease (HCC) ([facility]/HCC) Pulmonary emphysema, unspecified emphysema type ([facility]/HCC)- Primary Stage 3a chronic kidney disease (HCC) ([facility]/HCC) Impacted cerumen of both ears Impacted cerumen Pain due to onychomycosis of toenails of both feet- Primary Venous insufficiency Unspecified venous (peripheral) insufficiency [id number] History of Present illness Narrative* Linda Dempsey NP - 07/08/2024 10:33 AM EDTAssociated Problem(s): Stage 3a chronic kidney disease (HCC) ([facility]/HCC) CKD 3, stable. Renal function stable. Avoid nephrotoxic agents. * Linda Dempsey NP - 07/08/2024 10:31 AM EDTAssociated Problem(s): COPD with emphysema ([facility]/HCC) Currently taking Trelegy daily Uses Albuterol PRN [...] Visit Stage 3a chronic kidney disease (HCC) ([facility]) CKD 3, stable. Renal function stable. Avoid nephrotoxic agents. COPD with emphysema ([facility]) - Primary Currently taking Trelegy daily Uses [...] 6.5 % otic solution documented in this [facility]09-09-2024 Instructions* Patient Instructions* Linda Dempsey NP - 07/08/2024 10:00 AM EDT Keep up the good work! Call if you need anything! documented in this [facility]09-08-2023 NoteCardiology Clinic Note Chief Complaint: follow up [...] history of COPD (chronic obstructive pulmonary disease) ([facility]), Emphysema of lung ([facility]), and Hypertension. Surgical History He has a [...] will check lipid panel (more content not included)...[facility]09-08-2023 Note Patient here for 6 mo follow up abnormal stress test, dyspnea, and hypertension. Still denies chest pain. PCP manages his COPD/emphysema. He had CT chest and lab work a few weeks ago.[facility]03-29-2023 Note Cardiology Clinic Note Chief Complaint: new [...] fixed inferior defect, which could be medical detail representative of a prior infarct with scar versus artifact. I discussed with him options, including invasive coronary angiography for delineation of coronary anatomy and ruling out of critical lesions. Patient understands the procedure, and he defers any invasive procedures at this ti (more content not included)...[facility]08-24-2022 NotePROCEDURE: XR HIP LT 2 3V W [...] Electronically authenticated by: MARSHALL DAVISON Date: 2022-06-22 08:42[facility]08-19-2022 Evaluation note* Encounter Date Diagnosis Assessment Notes [...] if symptoms worsen or new symptoms occur. [facility] Other 05-10-2022 Evaluation note* Encounter Date Diagnosis [...] Follow-up with the patient in 3 months [facility] Other Evaluation note* Diagnosis Stage 3a chronic [...] Impacted cerumen [facility] Diagnosis Stage 3a chronic kidney disease (CMS-HCC)- Primary Encounter for Medicare annual wellness exam Pulmonary emphysema, unspecified emphysema type (HCC) COPD with exacerbation (HCC) Stage 3a chronic kidney disease (CMS-HCC)- Primary Pulmonary emphysema, unspecified emphysema type (HCC) Subconjunctival hemorrhage of left eye Pulmonary emphysema, unspecified emphysema type (HCC)- Primary Stage 3a chronic kidney disease (CMS-HCC) Pulmonary emphysema, unspecified emphysema type (HCC)- Primary Stage 3a chronic kidney disease (CMS-HCC) Impacted cerumen of both ears Impacted cerumen Screening for prostate cancer- Primary Special screening for malignant neoplasm of prostate Centrilobular emphysema (HCC) Chronic respiratory failure with hypoxia (HCC) Chronic kidney disease, stage 3a (CMS-HCC) Bronchiectasis, uncomplicated (HCC) Myalgia Unspecified myalgia and myositis Tremor Abnormal involuntary movements Impacted cerumen of both ears Impacted cerumen Tremor- Primary Abnormal involuntary movements Impacted cerumen of both ears Impacted cerumen Chronic kidney disease, stage 3a (CMS-HCC) Vitamin D deficiency Vitamin B12 deficiency Other B-complex deficiencies Essential tremor Vitamin D deficiency [facility]* Diagnosis Onset Date Resolution Status Admit Date Peripheral neuropathy acute Alex y 2024 2:28pm [facility] Work Phone: History general Narrative - Reported* Type Description Date [...] History TEETH Hospitalization History LUNG INFECTION 2013 [facility] Other Reason for referral (narrative)No reason for referral information availableR[facility] Work Phone: Summary Purpose Family History Relationship Condition Age at Onset Recorded Date/T timo daughter Unknown father Unknown Meningitis Unknown family member Unknown mother Unknown son Unknown Family history of mental disorder Unknown sister Family history of mental disorder Unknown Advance Directives Advance Directive Response Recorded Date/ Time Advance Directives No March 31 2:04pm Chief Complaint and Reason for Visit Chief Complaint Admit Date Follow up May 27, 2025 2:28 pm Reason for Visit Admit Date Peripheral neuropathy May 27, 2025 2: 28pm Additional Source Comments (unrecognized sect ion and content) No Status Records FoundNo Status Records FoundNo Status Records FoundNo Status Records Found INFORMATION SOURCE (unrecogn ized section and content) DATE CREATED AUTHOR 04/19/2018 [facility] DATE CREATED AUTHOR AUTHOR'S ORGANIZ ATION 11/11/2022 [facility] DATE CREATED AUTHOR AUTHOR'S ORGANIZ ATION 07/08/[address] [facility] DATE CREATED AUTHOR AUTHOR'S ORGANIZ ATION 04/20/2025 [facility] Special[facility] EPIC REASON FOR VISIT (unrecogniz ed section and content) Reason Comments Toenail Care Non DM Nails Reason Comments Follow-up 3M0 Reason Comments Toenail Care Non dm nail care Reason Comments Tremors Specialty Diagnoses / Procedures Referred By Contangelique t Referred To Contact Neurology Diagnoses Tremor Procedures MO OFFICE/OUTPATIENT NEW HIGH MDM 60 MINUTES Darlene De Souza NP [address] [place] [address] Phone: tel: fax: Arnulfo Kwok, DO [address] [place] [id number] Phone: tel: fax: Referral ID Status Reason Start Date Expiration Date V isits Requested Visits Authorized [id number] Closed Consult and Treat 01/06/2025 07/05/2025 1 1 Reason Comments Follow-up Reason Comments Med Refill Reason Comments Toenail Care Reason Onset Date Comments Med Refill 05/07/2025 Care Teams (unrecognized sec tion and content) Statistical Programmer Relationship Specialty Start Date End Date Demetrius Dorado MD [address] [place] [phone] PCP - General Family Medicine 06/05/24 Linda Dempsey NP [address] [place] [address] Nurse Practitioner Family Medicine 06/05/24 Statistical Programmer Relationship Specialty Start Date End Date Demetrius Dorado MD [address] [place] [phone] PCP - General Family Medicine 06/05/24 Linda Dempsey NP [address] [place] [address] Nurse Practitioner Family Medicine 06/05/24 Statistical Programmer Relationship Specialty Start Date End Date Demetrius Dorado MD [address] [place] [phone] PCP - General Family Medicine 06/05/24 Linda Dempsey NP [address] [place] [address] Nurse Practitioner Family Medicine 06/05/24 Statistical Programmer Relationship Specialty Start Date End Date Demetrius Dorado MD [address] [place] [address] PCP - General Family Medicine 06/05/24 Linda Dempsey NP [address] [place] [address] Nurse Practitioner Family Medicine 06/05/24 Statistical Programmer Relationship Specialty Start Date End Date Demetrius Dorado MD [address] [place] [address] PCP - General Family Medicine 06/05/24 Linda Dempsey NP [address] [place] [address] Nurse Practitioner Family Medicine 06/05/24 Statistical Programmer Relationship Specialty Start Date End Date Demetrius Dorado MD [address] [place] [address] PCP - General Family Medicine 06/05/24 Linda Dempsey NP [address] [place] [address] Nurse Practitioner Family Medicine 06/05/24 Statistical Programmer Relationship Specialty Start Date End Date Demetrius Dorado MD [address] [place] [phone] PCP - General Family Medicine 06/05/24 Linda Dempsey NP [address] [place] [address] Nurse Practitioner Family Medicine 06/05/24 Statistical Programmer Relationship Specialty Start Date End Date Demetrius Dorado MD [address] [place] [address] PCP - General Family Medicine 06/05/24 Linda Dempsey NP [address] [place] [address] Nurse Practitioner Family Medicine 06/05/24 Statistical Programmer Relationship Specialty Start Date End Date Demetrius Dorado MD [address] [place] [phone] PCP - General Family Medicine 06/05/24 Linda Dempsey NP [address] [place] [address] Nurse Practitioner Family Medicine 06/05/24 Statistical Programmer Relationship Specialty Start Date End Date Demetrius Dorado MD [address] [place] [phone] PCP - General Family Medicine 06/05/24 Linda Dempsey NP [address] [place] [address] Nurse Practitioner Family Medicine 06/05/24 Statistical Programmer Relationship Specialty Start Date End Date Demetrius Dorado MD [address] [place] [address] PCP - General Family Medicine 06/05/24 Linda Dempsey BLANQUITA [address] [place] [address] Nurse Practitioner Family Medicine 06/05/24 Statistical Programmer Relationship Specialty Start Date End Date Demetrius Dorado MD [address] [place] [address] PCP - General Family Medicine 06/05/24 Linda Dempsey NP [address] [place] [address] Nurse Practitioner Family Medicine 06/05/24 Statistical Programmer Relationship Specialty Start Date End Date Demetrius Dorado MD [address] [place] [address] PCP - General Family Medicine 06/05/24 Linda Dempsey NP [address] [place] [address] Nurse Practitioner Family Medicine 06/05/24 Statistical Programmer Relationship Specialty Start Date End Date Demetrius Dorado MD [address] [place] [address] PCP - General Family Medicine 06/05/24 Linda Dempsey NP [address] [place] [address] Nurse Practitioner Family Medicine 06/05/24 Statistical Programmer Relationship Specialty Start Date End Date Demetrius Dorado MD [address] [place] [address] PCP - General Family Medicine 06/05/24 Linda Dempsey NP [address] [place] [address] Nurse Practitioner [facility] 06/05/24 Statistical Programmer Relationship Specialty Start Date End Date Demetrius Dorado MD [address] [place] [address] PCP - General [facility] 06/05/24 Linda Dempsey NP [address] [place] [address] Nurse Practitioner [facility] 06/05/24 Statistical Programmer Relationship Specialty Start Date End Date Demetrius Dorado MD [address] [place] [address] PCP - General [facility] 06/05/24 Linda Dempsey NP [address] [place] [phone] Nurse Practitioner [facility] 06/05/24 Team Status: Active Member Role Status Dates [facility] Primary Care Provider Activ e Team Status: Inactive Member Role Status Dates Alonso Adams DO Attending Provider Active Sta rt: April 21, 2025 End: April 21, 2025 [facility] Primary Care Provider Activ e Start: April 21, 2025 End: April 21, 2025 Team Status: Inactive Member Role Status Dates Katy Floyd APRN Attending Provider Active Start: May 27, 2025 End: May 27, 2025 [facility] Primary Care Provider Activ e Start: May 27, 2025 End: May 27, 2025 Goals (unrecognized section and content) Goals may be documented in a n alternate section FOR RECORDS PERTAINING TO PATIENTS WHO ARE [...] BE BASED ON THE PRIMARY CLINICAL RECORDS. [facility]. provides no warranty or guarantee of the accuracy or completeness of information in this document.
== END 2025-06-18 11:02 | disposition home or self-care (01) ==
LOC: LAB 11:02
PROVIDERS: PCP Nurse Practitioner; Visit Provider Nurse Practitioner
DX: E55.9 Vitamin D deficiency, unspecified (principal); G60.9 Hereditary and idiopathic neuropathy, unspecified
CPT/HCPCS: 36415; 82306; 82607

== ENCOUNTER 2025-06-18 11:02 | Outpatient (OUT) | payer MEDICARE, OTHER, SELFPAY ==
--- OUTSIDE RECORDS SUMMARY | 2025-06-18 11:05 | XMS_ITS | Encounter Summary ---
Author Organization [facility] Address [address] [place] [address] Care Team Providers Care [facility] Name Role Phone Demetrius Dorado MD Primary Care Provider [phone] Zainab Dempsey NP Unavailable [phone] Reason for Visit * Reason Comments Med Refill Encounter Details Date Type Department Care Team (Late Contact Info) Description 06/05/2025 Refill [facility] [address] [place] [address] Darlene De Souza NP [address] [place] [address] Vitamin D deficiency Social History Tobacco Use Types Packs/Day [...] EDT Procedure Visit [facility] [address] [facility] [address] [place] [phone] Saul Pérez DPM [address] [facility] 5 [place] [address] 07/07/2025 1:00 PM EDT Office Visit [facility] [address] [place] [address] Darlene De Souza NP [address] [place] [address] documented as of this encounter Visit Diagnoses Diagnosis Vitamin D deficiency Pain due to onychomycosis of toenails of both feet- Primary Venous insufficiency Unspecified venous (peripheral) insufficiency documented in this encounter Additional Health Concerns Assessment Noted Time PHQ-9 Depression Total Score: 0 10/16/20 9:00 AM EST documented as of this encounter Care Teams [facility] Relationship Specialty Start Date End Date Demetrius Dorado MD [address] [place] [address] PCP - General Family Medicine 06/05/24 Zainab Dempsey NP [address] [place] [address] Nurse Practitioner Family Medicine 06/05/24 documented as of this encounter
--- OUTSIDE RECORDS SUMMARY | 2025-06-18 11:23 | XMS_ITS | CCD ---
Author Organization [facility]ini[facility] Care Team Providers Care Pricing Director Name Role Phone PHYSICIAN, DEFAULT Unavailable Unavailable [...] Care Provider Ke JUARES, Linda Unavailable Ke COOKER TENDER, Linda Unavailable DARLENE DE SOUZA Attending Unavailable SAUL PÉREZ Attending Unavailable ALONSO ADAMS Attending Unavailable DARLENE DE SOUZA Referring Unavailable DARLENE DE SOUZA Attending Unavailable SAUL PÉREZ Attending Unavailable SHAIKH CONTRERAS Attending Unavailable SAUL PÉREZ Attending Unavailable LINDA DEMPSEY Attending UnavailSAUL Randhawa Attending Unavailable LINDA DEMPSEY Attending SAUL Cantrell Attending Unavailable Alonso Adams DO Attending Provider [facility] Provide r Katy Floyd APRN Attending Provider Medications Current Medications Medication Drug Class(es) Dates Sig (Normalized) Sig (Original) [id number] 200 actuat albuterol 0.09 mg/actuat metered dose [...] oral tablet (1 source) alpha-Adrenergic Agonist, Uncompetitive K-heppvd-I-aspartate Receptor Antagonist, Sigma-1 Agonist Capmist DM [id number] [...] FOLATE 16.6 ng/mL 8.60 - 58.90 ng/mL [facility] ALL CBC WITH AUTO DIFFon BASOPHILS ABSOLUTE AUTO 0.1 [facility] Basophils/100 WBC (Bld) 0.7 % 0.2 - 2.0 % [facility] Eosinophils/100 WBC (Bld) 1.7 % 0.9 - 7.0 % [facility] Erythrocyte distribution width (RBC) [Ratio] 13.2 % 11.0 - 15.0 % [facility] Hematocrit (Bld) [Volume fraction] 50.2 % 42.0 - 54.0 % [facility] e Hemoglobin (Bld) [Mass/Vol] 17.1 g/dL 14.0 - 18.0 g/dL [facility] IMMATURE GRANULOCYTES ABS AUTO 0.02 [facility] Immature granulocytes/100 WBC (Bld) 0.3 % 0.0 - 0.5 % [facility] Interpretation and review of laboratory results [facility] LYMPHOCYTES ABSOLUTE AUTO 1.1 Low [facility] Lymphocytes/100 WBC (Bld) 15.3 % Low 20.5 - 60.0 % [facility] MCH (RBC) [Entitic mass] 32.1 pg 25.9 - 34.0 pg [facility] MCHC (RBC) [Mass/Vol] 34.1 g/dL 29.9 - 35.2 g/dL [facility] MCV (RBC) [Entitic vol] 94.4 fL High 80.0 - 94.0 fL [facility] MONOCYTES ABSOLUTE AUTO 0.6 [facility] Monocytes/100 WBC (Bld) 7.7 % 1.7 - 12.0 % [facility] NEUTROPHILS ABSOLUTE AUTO 5.5 [facility] Neutrophils/100 WBC (Bld) 74.3 % 43.0 - 75.0 % [facility] Platelet mean volume (Bld) [Entitic vol] 9 fL Low 9.5 - 13.5 fL [facility] TBH EO # 0.1 [facility]T [facility] RBC 5.32 [facility] TBH WBC 7.4 [facility] CT CHEST WO CONon 01-08-[address] [address] [address] Scan Report Signed Patient: MARTIN DAWN MR#: [id number] : 1950 Acct:[id number] Age/Sex: 74 / M ADM Date: 01/08/25 Loc: CT Attending Dr: Darlene Christensen D.O. Ordering Physician: Darlene Christensen D.O. Date of Service: 01/08/25 Procedure(s): CT chest wo con Accession Number(s): [id number] cc: LINDA DEMPSEY [place] [id number] Patient Name: MARTIN DAWN MRN: [facility]:[id number] date: 1950 Sex: M Assigned Patient Location: CT Current Patient Location: CT Accession/Order Number: [id number] Exam Date: 01/08/2025 18:00 Report Date: 01/08/2025 [...] Tonny Aguilar M.D.01/08/2025 6:07 PM Dictation Location: [place] [address] Electronically authenticated by: [id number] Y Date: 01/08/2025 18:07 Dictated By: Tonny Aguilar D.O. Signed By: 01/08/251809 DD/ 06 TD/TT: Financial Accountant: [facility] Radiology, Radiologist, MD - 01/08/2025 [place] [address] CT Scan Report Signed Patient: MARTIN DAWN MR#: [id number] : 1950 Acct:[id number] Age/Sex: 74 / M ADM Date: 01/08/25 Loc: CT Attending Dr: Darlene Christensen D.O. Ordering Physician: Darlene Christensen D.O. Date of Service: 01/08/25 Procedure(s): CT chest wo con Accession Number(s): [id number] cc: LINDA DEMPSEY [place] [id number] Patient Name: MARTIN DAWN MRN: [facility]:[id number] date: 1950 Sex: M Assigned Patient Location: CT Current Patient Location: CT Accession/Order Number: [id number] Exam Date: 01/08/2025 18:00 Report Date: 01/08/2025 [...] Tonny Aguilar M.D.01/08/2025 6:07 PM Dictation Location: [place] [address] Electronically authenticated by: [id number] Y Date: 01/08/2025 18:07 Dictated By: Tonny Aguilar D.O. Signed By: 01/08/251809 DD/ 06 TD/TT: Financial Accountant: [facility] [employer] Radiology Study observation (narrative) [facility] CT CHEST WO CONOrdered By: Yang adiologguera Radiology on 01-08-2025 [facility] Work Phone: Office Visiton 07-07-2023 Follow-up visit [id number] Martin Dawn 1950 M Date Provider Department Center 07/07/2023 3848-[facility] Family History Problem Relation Age of Onset No Known Problems Mother No Known Problems Father Family Status - Relation Status Age at Mother Father Level of Service:62256 [place] OFFICE/OUTPATIENT ESTABLISHED LOW MDM 20-29 MIN Normal [facility] Office Visiton 01-25-2023 Follow-up visit [id number] Martin Dawn 1950 M Date Provider Department Center 01/25/2023 3848-SEBASTIAN KOHLER [facility] No family history on file Level of Service:49827 [place] OFFICE/OUTPATIENT NEW MODERATE MDM 45-59 MINUTES Reason for Visit and Comments: New Patient [632] - Est care- Ongoing SOB and results of heart test Normal [facility] CP ECHO W CONTRASTon 023 CP ECHO W CONTRAST Patient: CRISTI DAWN Exam Date: 11/10/2022 : 1950 Gender:M Ordering : SHAIKH Nathanael CONTRERAS . Admission #: [id number] Family : Order #: [id number] CLICK HERE TO VIEW EXAM ECHOCARDIOGRAM REPORT [...] Paz M.D. on 11/11/2022 at 13:41 Normal [facility] NM STRESS/REST MULTIon 11-10 [place] STRESS/REST MULTI Patient: MARTIN DAWN Exam Date: 11/10/2022 : 1950 Gender:M Ordering : SHAIKH Nathanael CONTRERAS . Admission #: [id number] Family : Order #: [id number] CLICK HERE TO VIEW EXAM RADIOLOGY REPORT PROCEDURE: RADIONUCLIDE IMAGING STRESS/REST MULTI COMPARISON: [place] STRESS/REST MULTI, 12/07/2017. INDICATIONS: Dyspnea on exertion [...] Davison M.D. on 11/10/2022 at 15:21 Normal [facility] BNPon 11-02-2022 Natriuretic peptide B (Bld) [Mass/Vol] 122.0 pg/mL Normal <=900.0 [facility] Comment on above: Performed By: #### C MP #### [facility] [address] [place] [address] [address] Radha Gomez CBC AUTO DIFFon 11-02-2022 BASO # 0.1 103/ul Normal 0.0-0.1 [facility] Comment on above: Performed By: #### C MP #### [facility] [address] [place] [address] Dr. Radha Gomez Basophils/100 WBC (Bld) 0.8 % Normal 0.2-2.0 [facility] Comment on above: Performed By: #### C MP #### [facility] [address] [place] [address] Dr. Radha Gomez EO # 0.1 103/ul Normal 0.0-0.7 [facility] Comment on above: Performed By: #### C MP #### [facility] [address] [place] [address] Dr. Radha Gomez Eosinophils/100 WBC (Bld) 1.9 % Normal 0.9-7.0 [facility] Comment on above: Performed By: #### C MP #### [facility] [address] [place] [address] Dr. Radha Gomez Erythrocyte distribution width (RBC) [Ratio] 12.7 % Normal 11.0-15.0 [facility] Comment on above: Performed By: #### C MP #### [facility] [address] [place] [address] Dr. Radha Gomez Hematocrit (Bld) [Volume fraction] 49.8 % Normal 42.0-54.0 [facility] Comment on above: Performed By: #### C MP #### [facility] [address] [place] [address] Dr. Radha Gomez Hemoglobin (Bld) [Mass/Vol] 16.9 g/dL Normal 14.0-18.0 [facility] Comment on above: Performed By: #### C MP #### [facility] [address] [place] [address] Dr. Radha Gomez IG # 0.02 10e3/ul Normal 0.00-0.03 [facility] Comment on above: Performed By: #### C MP #### [facility] [address] [place] [address] Dr. Radha Gomez IG % 0.3 % Normal 0.0-0.5 [facility] Comment on above: Performed By: #### C MP #### [facility] [address] [place] [address] Dr. Radha Gomez LYMPH # 1.4 103/ul Normal 1.2-3.8 [facility] Comment on above: Performed By: #### C MP #### [facility] [address] [place] [address] Dr. Radha Gomez Lymphocytes/100 WBC (Bld) 19.3 % Critically low 20.5-60.0 [facility] Comment on above: Performed By: #### C MP #### [facility] [address] [place] [address] Dr. Radha Gomez MANUAL DIFF REQ NO Normal [facility] Comment on above: Performed By: #### C MP #### [facility] [address] [place] [address] Dr. Radha Gomez MCH (RBC) [Entitic mass] 31.9 pg Normal 25.9-34.0 [facility] Comment on above: Performed By: #### C MP #### [facility] [address] [place] [address] Dr. Radha Gomez MCHC (RBC) [Mass/Vol] 33.9 g/dL Normal 29.9-35.2 [facility] Comment on above: Performed By: #### C MP #### [facility] [address] [place] [address] Dr. Radha Gomez MCV (RBC) [Entitic vol] 94.0 fL Normal 80.0-94.0 [facility] Comment on above: Performed By: #### C MP #### [facility] [address] [place] [address] Dr. Radha Gomez MONO # 0.7 103/ul Normal 0.3-0.8 [facility] Comment on above: Performed By: #### C MP #### [facility] [address] [place] [address] Dr. Radha Gomez Monocytes/100 WBC (Bld) 9.5 % Normal 1.7-12.0 [facility] Comment on above: Performed By: #### C MP #### [facility] [address] [place] [address] Dr. Radha Gomez NEUT # 5.0 103/ul Normal 1.4-6.5 [facility] Comment on above: Performed By: #### C MP #### [facility] [address] [place] [address] Dr. Radha Gomez Neutrophils/100 WBC (Bld) 68.2 % Normal 43.0-75.0 [facility] Comment on above: Performed By: #### C MP #### [facility] [address] [place] [address] Dr. Radha Gomez Platelet mean volume (Bld) [Entitic vol] 9.0 fL Critically low 9.5-13.5 [facility] Comment on above: Performed By: #### C MP #### [facility] [address] [place] [address] Dr. Radha Gomez PLT 183 103/ul Normal 150-450 [facility] Comment on above: Performed By: #### C MP #### [facility] [address] [place] [address] Dr. Radha Gomez RBC 5.30 106/ul Normal 4.70-6.10 [facility] Comment on above: Performed By: #### C MP #### [facility] [address] [place] [address] Dr. Radha Gomez WBC 7.3 103/ul Normal 4.0-11.0 [facility] Comment on above: Performed By: #### C MP #### [facility] [address] [place] [address] Dr. Radha Gomez PROF CHEM 8 (BAS METB)on Anion gap [Moles/Vol] 11.7 mmol/L Normal [facility] Comment on above: Performed By: #### C MP #### [facility] [address] [place] [address] [address] Radha Gomez Calcium [Mass/Vol] 9.5 mg/dL Normal 8.5-10.1 [facility] Comment on above: Performed By: #### C MP #### [facility] [address] [place] [address] [address] Radha Gomez Chloride [Moles/Vol] 105 mmol/L Normal 98-107 [facility] Comment on above: Performed By: #### C MP #### [facility] [address] [place] [address] [address] Radha Gomez CO2 [Moles/Vol] 27.5 mmol/L Normal 21.0-32.0 [facility] Comment on above: Performed By: #### C MP #### [facility] [address] [place] [address] [address] Radha Gomez Creatinine [Mass/Vol] 1.35 mg/dL Critically high 0.70-1.30 [facility] Comment on above: Performed By: #### C MP #### [facility] [address] [place] [address] [address] Radha Gomez EGFR-AF MONTENEGRIN >60 Normal >=60 [facility] Comment on above: Performed By: #### C MP #### [facility] [address] [place] [address] [address] Radha Gomez EGFR-NON AF MONTENEGRIN 52 mL/min/1.73m2 Critically low >=60 [facility] Comment on above: Performed By: #### C MP #### [facility] [address] [place] [address] [address] Radha Gomez Glucose [Mass/Vol] 88 mg/dL Normal 74-106 [facility] Comment on above: Performed By: #### C MP #### [facility] [address] [place] [address] [address] Radha Gomez Potassium [Moles/Vol] 4.2 mmol/L Normal 3.5-5.1 [facility] Comment on above: Performed By: #### C MP #### [facility] [address] [place] [address] [address] Radha Gomez Sodium [Moles/Vol] 140 mmol/L Normal 136-145 [facility] Comment on above: Performed By: #### C MP #### [facility] [address] [place] [address] [address] Radha Gomez Urea nitrogen [Mass/Vol] 19.0 mg/dL Critically high 7.0-18.0 [facility] Comment on above: Performed By: #### C MP #### [facility] [address] [place] [address] [address] Radha Gomez Urea nitrogen/Creatinine [Mass ratio] 14.1 mg/mg Normal [facility] Comment on above: Performed By: #### C MP #### [facility] [address] [place] [address] [address] Radha Gomez XR CHEST 2 Von [...] YANDY PÉREZ Date: 2022-11-02 08:42 Normal [facility] XR LSPINE 2_3 VIEWSon 2021 XR [...] YANDY MALONEY Date: 2022-06-21 15:47 Normal [facility] CT CHEST WO CONon 02-22-2022 [...] YANDY MALONEY Date: 2022-02-22 13:27 Normal [facility] CBC AUTO DIFFon 12-10-2021 BASO # 0.1 103/ul Normal 0.0-0.1 [facility] Comment on above: Performed By: #### C BC #### [facility] [address] [place] [address] [address] Radha Gomez Basophils/100 WBC (Bld) 0.6 % Normal 0.2-2.0 [facility] Comment on above: Performed By: #### C BC #### [facility] [address] [place] [address] Dr. Radha Gomez EO # 0.3 103/ul Normal 0.0-0.7 [facility] Comment on above: Performed By: #### C BC #### [facility] [address] [place] [address] Dr. Radha Gomez Eosinophils/100 WBC (Bld) 3.1 % Normal 0.9-7.0 [facility] Comment on above: Performed By: #### C BC #### [facility] [address] [place] [address] Dr. Radha Gomez Erythrocyte distribution width (RBC) [Ratio] 12.8 % Normal 11.0-15.0 [facility] Comment on above: Performed By: #### C BC #### [facility] [address] [place] [address] Dr. Radha Gomez Hematocrit (Bld) [Volume fraction] 50.9 % Normal 42.0-54.0 [facility] Comment on above: Performed By: #### C BC #### [facility] [address] [place] [address] Dr. Radha Gomez Hemoglobin (Bld) [Mass/Vol] 17.3 g/dL Normal 14.0-18.0 [facility] Comment on above: Performed By: #### C BC #### [facility] [address] [place] [address] Dr. Radha Gomez IG # 0.02 10e3/ul Normal 0.00-0.03 [facility] Comment on above: Performed By: #### C BC #### [facility] [address] [place] [address] Dr. Radha Gomez IG % 0.3 % Normal 0.0-0.5 [facility] Comment on above: Performed By: #### C BC #### [facility] [address] [place] [address] Dr. Radha Gomez LYMPH # 1.4 103/ul Normal 1.2-3.8 [facility] Comment on above: Performed By: #### C BC #### [facility] [address] [place] [address] Dr. Radha Gomez Lymphocytes/100 WBC (Bld) 18.0 % Critically low 20.5-60.0 [facility] Comment on above: Performed By: #### C BC #### [facility] [address] [place] [address] Dr. Radha Gomez MANUAL DIFF REQ NO Normal [facility] Comment on above: Performed By: #### C BC #### [facility] [address] [place] [address] Dr. Radha Gomez MCH (RBC) [Entitic mass] 31.3 pg Normal 25.9-34.0 [facility] Comment on above: Performed By: #### C BC #### [facility] [address] [place] [address] Dr. Radha Gomez MCHC (RBC) [Mass/Vol] 34.0 g/dL Normal 29.9-35.2 [facility] Comment on above: Performed By: #### C BC #### [facility] [address] [place] [address] Dr. Radha Gomez MCV (RBC) [Entitic vol] 92.0 fL Normal 80.0-94.0 [facility] Comment on above: Performed By: #### C BC #### [facility] [address] [place] [address] Dr. Radha Gomez MONO # 0.7 103/ul Normal 0.3-0.8 [facility] Comment on above: Performed By: #### C BC #### [facility] [address] [place] [address] Dr. Radha Gomez Monocytes/100 WBC (Bld) 8.3 % Normal 1.7-12.0 [facility] Comment on above: Performed By: #### C BC #### [facility] [address] [place] [address] Dr. Radha Gomez NEUT # 5.5 103/ul Normal 1.4-6.5 [facility] Comment on above: Performed By: #### C BC #### [facility] [address] [place] [address] Dr. Radha Gomez Neutrophils/100 WBC (Bld) 69.7 % Normal 43.0-75.0 [facility] Comment on above: Performed By: #### C BC #### [facility] [address] [place] [address] Dr. Radha Gomez Platelet mean volume (Bld) [Entitic vol] 9.3 fL Critically low 9.5-13.5 [facility] Comment on above: Performed By: #### C BC #### [facility] [address] [place] [address] Dr. Radha Gomez PLT 168 103/ul Normal 150-450 [facility] Comment on above: Performed By: #### C BC #### [facility] [address] [place] [address] Dr. Radha Gomez RBC 5.53 106/ul Normal 4.70-6.10 [facility] Comment on above: Performed By: #### C BC #### [facility] [address] [place] [address] Dr. Radha Gomez WBC 7.9 103/ul Normal 4.0-11.0 [facility] Comment on above: Performed By: #### C BC #### [facility] [address] [place] [address] LUNG CANCER SCREENINGon [...] MARSHALL DAVISON Date: 2021-12-10 11:08 Normal [facility] PROF 14(COMP METB)on 12-10- 022 Albumin [Mass/Vol] 3.7 g/dL Normal 3.5-5.0 [facility] Comment on above: Performed By: #### C MP #### [facility] [address] [place] [address] Dr. Radha Gomez Albumin/Globulin [Mass ratio] 1.1 {ratio} Normal [facility] Comment on above: Performed By: #### C MP #### [facility] [address] [place] [address] Dr. Radha Gomez ALP [Catalytic activity/Vol] 92 U/L Normal 38-126 [facility] Comment on above: Performed By: #### C MP #### [facility] [address] [place] [address] Dr. Radha Gomez ALT [Catalytic activity/Vol] 26 U/L Normal 21-72 [facility] Comment on above: Performed By: #### C MP #### [facility] [address] [place] [address] Dr. Radha Gomez Anion gap [Moles/Vol] 13.0 mmol/L Normal [facility] Comment on above: Performed By: #### C MP #### [facility] [address] [place] [address] Dr. Radha Gomez AST [Catalytic activity/Vol] 20 U/L Normal 17-59 [facility] Comment on above: Performed By: #### C MP #### [facility] [address] [address] [address] Radha Gomez Bilirubin [Mass/Vol] 1.1 mg/dL Normal 0.2-1.3 [facility] Comment on above: Performed By: #### C MP #### [facility] [address] [address] [address] Radha Gomez Calcium [Mass/Vol] 9.3 mg/dL Normal 8.4-10.2 [facility] Comment on above: Performed By: #### C MP #### [facility] [address] [address] [address] Radha Gomez Chloride [Moles/Vol] 106 mmol/L Normal 98-107 [facility] Comment on above: Performed By: #### C MP #### [facility] [address] [address] [address] Radha Gomez CO2 [Moles/Vol] 23.4 mmol/L Normal 22.0-30.0 [facility] Comment on above: Performed By: #### C MP #### [facility] [address] [address] [address] Radha Gomez Creatinine [Mass/Vol] 1.39 mg/dL Critically high 0.66-1.25 [facility] Comment on above: Performed By: #### C MP #### [facility] [address] [address] [address] Radha Gomez EGFR-AF MONTENEGRIN >60 Normal >=60 [facility] Comment on above: Performed By: #### C MP #### [facility] [address] [address] [address] Radha Gomez EGFR-NON AF MONTENEGRIN 51 mL/min/1.73m2 Critically low >=60 [facility] Comment on above: Performed By: #### C MP #### [facility] [address] [address] [address] Radha Gomez Globulin (S) [Mass/Vol] 3.4 g/dL Normal [facility] Comment on above: Performed By: #### C MP #### [facility] [address] [address] [address] Radha Gomez Glucose [Mass/Vol] 94 mg/dL Normal 74-106 [facility] Comment on above: Performed By: #### C MP #### [facility] [address] [address] [address] Radha Gomez Potassium [Moles/Vol] 4.4 mmol/L Normal 3.4-5.0 [facility] Comment on above: Performed By: #### C MP #### [facility] [address] [address] [address] Radha Gomez Protein [Mass/Vol] 7.1 g/dL Normal 6.1-8.2 [facility] Comment on above: Performed By: #### C MP #### [facility] [address] [address] [address] Radha Gomez Sodium [Moles/Vol] 138 mmol/L Normal 137-145 [facility] Comment on above: Performed By: #### C MP #### [facility] [address] [address] [address] Radha Gomez Urea nitrogen [Mass/Vol] 23.0 mg/dL Critically high 9.0-20.0 [facility] Comment on above: Performed By: #### C MP #### [facility] [address] [address] [address] Radha Gomez Urea nitrogen/Creatinine [Mass ratio] 16.5 mg/mg Normal [facility] Comment on above: Performed By: #### C MP #### [facility] [address] [address] [address] Radha Gomez XR LSPINE 2_3 VIEWSon [...] by: MARSHALL DAVISON Date: 2021-12-10 11:13 Normal [facility] Vital Signs Date Time Vital Sign Value Performing Clinician Facility 05-27-2025 15:04-0400 Diastolic blood pressure 70 mm[Hg] [facility] Work Phone: [facility] 05-27-2025 15:04-0400 Systolic blood pressure 110 mm[Hg] [facility] Work Phone: [facility] 04-17-2025 16:00-0400 Body height 182.9 cm Saul Pérez DPM Work Phone: [facility] 04-17-2025 16:00-0400 Body mass index (BMI) [Ratio] 28.62 kg/m2 Saul Pérez DPM Work Phone: [facility] 04-17-2025 16:00-0400 Body weight 95.71 kg Saul Pérez DPM Work Phone: [facility] 04-17-2025 16:00-0400 Respiratory rate 16 /min Saul Pérez DPM Work Phone: [facility] 03-11-2025 13:49-0400 Body mass index (BMI) [Ratio] 28.62 kg/m2 Darlene De Souza [employer] Work Phone: [facility] 03-11-2025 13:49-0400 Body temperature 98.49 [degF] Darlene De Souza [employer] Work Phone: [facility] 03-11-2025 13:49-0400 Body weight 95.71 kg Darlene De Souza [employer] Work Phone: [facility] 03-11-2025 13:49-0400 Diastolic blood pressure 80 mm[Hg] Darlene De Souza [employer] Work Phone: [facility] 03-11-2025 13:49-0400 Heart rate 68 /min Darlene De Souza [employer] Work Phone: [facility] 03-11-2025 13:49-0400 Respiratory rate 20 /min Darlene De Souza [employer] Work Phone: [facility] 03-11-2025 13:49-0400 SaO2% (BldA) [Mass fraction] 90 % Darlene De Souza [employer] Work Phone: [facility] 03-11-2025 13:49-0400 Systolic blood pressure 118 mm[Hg] Darlene De Souza [employer] Work Phone: [facility] 03-05-2025 13:46-0400 Body height 182.9 cm Alonso Hien DO Work Phone: [facility] 03-05-2025 13:46-0400 Body mass index (BMI) [Ratio] 28.35 kg/m2 Alonso Hien DO Work Phone: [facility] 03-05-2025 13:46-0400 Body weight 94.8 kg Alonso Hien DO Work Phone: [facility] 03-05-2025 13:46-0400 Diastolic blood pressure 84 mm[Hg] Alonso Hien DO Work Phone: [facility] 03-05-2025 13:46-0400 Heart rate 85 /min Alonso Hien DO Work Phone: [facility] 03-05-2025 13:46-0400 SaO2% (BldA) [Mass fraction] 93 % Alonso Hien DO Work Phone: [facility] 03-05-2025 13:46-0400 Systolic blood pressure 126 mm[Hg] Alonso Hien DO Work Phone: [facility] 01-23-2025 13:43-0400 Body height 185.4 cm Saul Pérez DPM Work Phone: [facility] 01-23-2025 13:43-0400 Body mass index (BMI) [Ratio] 27.57 kg/m2 Saul Pérez DPM Work Phone: [facility] 01-23-2025 13:43-0400 Body weight 94.8 kg Saul Pérez DPM Work Phone: [facility] 01-23-2025 13:43-0400 Diastolic blood pressure 88 mm[Hg] Saul Pérez DPM Work Phone: [facility] 01-23-2025 13:43-0400 Heart rate 70 /min Saul Pérez DPM Work Phone: [facility] 01-23-2025 13:43-0400 Systolic blood pressure 138 mm[Hg] Saul Pérez DPM Work Phone: [facility] 01-06-2025 13:16-0400 Body height 185.4 cm Darlene Chaz [employer] Work Phone: [facility] 01-06-2025 13:16-0400 Body mass index (BMI) [Ratio] 27.57 kg/m2 Darlene Aichholz [employer] Work Phone: [facility] 01-06-2025 13:16-0400 Body temperature 97.81 [degF] Darlene Aichholz [employer] Work Phone: [facility] 01-06-2025 13:16-0400 Body weight 94.8 kg Darlene Aichholz [employer] Work Phone: [facility] 01-06-2025 13:16-0400 Diastolic blood pressure 88 mm[Hg] Darlene Aichholz [employer] Work Phone: [facility] 01-06-2025 13:16-0400 Heart rate 70 /min Darlene Aichholz [employer] Work Phone: [facility] 01-06-2025 13:16-0400 Respiratory rate 19 /min Darlene Aichholz [employer]ER Work Phone: [facility] 01-06-2025 13:16-0400 SaO2% (BldA) [Mass fraction] 90 % Darlene De Souza [employer]ER Work Phone: [facility] 01-06-2025 13:16-0400 Systolic blood pressure 138 mm[Hg] Darlene De Souza [employer] Work Phone: [facility] 10-31-2024 09:17-0500 Body height 185.4 cm Saul Pérez DPM Work Phone: [facility] 10-31-2024 09:17-0500 Body mass index (BMI) [Ratio] 28.5 kg/m2 Saul Pérez DPM Work Phone: [facility] 10-31-2024 09:17-0500 Body weight 97.98 kg Saul Pérez DPM Work Phone: [facility] 10-31-2024 09:17-0500 Respiratory rate 18 /min Saul Pérez DPM Work Phone: [facility] 10-16-2024 09:48-0500 Body height 185.4 cm Linda Dempsey [employer] Work Phone: [facility] 10-16-2024 09:48-0500 Body mass index (BMI) [Ratio] 28.5 kg/m2 Linda Dempsey [employer] Work Phone: [facility] 10-16-2024 09:48-0500 Body temperature 97.59 [degF] Linda Dempsey [employer] Work Phone: [facility] 10-16-2024 09:48-0500 Body weight 97.98 kg Linda Dempsey [employer] Work Phone: [facility] 10-16-2024 09:48-0500 Diastolic blood pressure 86 mm[Hg] Linda Dempsey [employer] Work Phone: [facility] 10-16-2024 09:48-0500 Heart rate 97 /min Linda Dempsey [employer] Work Phone: [facility] 10-16-2024 09:48-0500 Respiratory rate 18 /min Linda Dempsey [employer] Work Phone: [facility] 10-16-2024 09:48-0500 SaO2% (BldA) [Mass fraction] 93 % Linda Dempsey [employer] Work Phone: [facility] 10-16-2024 09:48-0500 Systolic blood pressure 120 mm[Hg] Linda Dempsey [employer] Work Phone: [facility] 08-22-2024 09:34-0400 Body height 185.4 cm Saul Pérez DPM Work Phone: [facility] 08-22-2024 09:34-0400 Body mass index (BMI) [Ratio] 27.71 kg/m2 Saul Pérez DPM Work Phone: [facility] 08-22-2024 09:34-0400 Body weight 95.25 kg Saul Pérez DPM Work Phone: [facility] 08-22-2024 09:34-0400 Diastolic blood pressure 80 mm[Hg] Saul Pérez DPM Work Phone: [facility] 08-22-2024 09:34-0400 Heart rate 88 /min Saul Pérez DPM Work Phone: [facility] 08-22-2024 09:34-0400 Systolic blood pressure 126 mm[Hg] Saul Pérez DPM Work Phone: [facility] 07-08-2024 10:08-0400 Body height 185.4 cm Linda Dempsey [employer] Work Phone: [facility] 07-08-2024 10:08-0400 Body mass index (BMI) [Ratio] 27.71 kg/m2 Linda Dempsey [employer] Work Phone: [facility] 07-08-2024 10:08-0400 Body temperature 97.81 [degF] Linda Dempsey [employer] Work Phone: [facility] 07-08-2024 10:08-0400 Body weight 95.25 kg Linda Dempsey [employer] Work Phone: [facility] 07-08-2024 10:08-0400 Diastolic blood pressure 86 mm[Hg] Linda Dempsey [employer] Work Phone: [facility] 07-08-2024 10:08-0400 Heart rate 77 /min Linda Dempsey [employer] Work Phone: [facility] Comment on above: 96% O2 07-08-2024 10:08-0400 Systolic blood pressure 136 mm[Hg] Linda Dempsey [employer] Work Phone: [facility] 06-17-2022 10:30-0400 Body height 185.42 cm Rowena Haines Other [employer] Other 06-17-2022 10:30-0400 Body mass index (BMI) [Ratio] 28.36 kg/m2 Rowena Haines Other [employer] Other 06-17-2022 10:30-0400 Body temperature 97.7 [degF] Rowena Haines Other [employer] Other 06-17-2022 10:30-0400 Body weight 97.52 kg Rowena Haines Other [employer] Other 06-17-2022 10:30-0400 Diastolic blood pressure 93 mm[Hg] Rowena Haines Other [employer] Other 06-17-2022 10:30-0400 Respiratory rate 18 /min Rowena Haines Other [employer] Other 06-17-2022 10:30-0400 SaO2% (BldA) [Mass fraction] 95 % Rowena Haines Other [employer] Other 06-17-2022 10:30-0400 Systolic blood pressure 135 mm[Hg] Rowena Haines Other [employer] Other 03-08-2022 11:20-0400 Body height 185.42 cm Lisa Carrillos Other [employer] Other 03-08-2022 11:20-0400 Body mass index (BMI) [Ratio] 28.6 kg/m2 Azrafi [employer] Other [employer] Other 03-08-2022 11:20-0400 Body temperature 97.9 [degF] Lisa Chrysalliss Other [employer] Other 03-08-2022 11:20-0400 Body weight 98.34 kg Azrafi Bakhous Other [employer] [facility] Other 03-08-2022 11:20-0400 Diastolic blood pressure 90 mm[Hg] Aziz [employer] Other [employer] Other 03-08-2022 11:20-0400 Respiratory rate 20 /min Aziz [employer] Other [employer] Other 03-08-2022 11:20-0400 SaO2% (BldA) [Mass fraction] 90 % Azrafi [employer] Other [employer] Other 03-08-2022 11:20-0400 Systolic blood pressure 130 mm[Hg] Lisa Lester Other [facility] [employer] Other Encounters Encounter Date Encounter Type Care Provider Facility Start: 06-05-2025 End: 06-06-2025 Refill Darlene Aichholz [employer] Work Phone: [facility] Comment on above: Vitamin D deficiency Start: 05-27-2025 End: 05-27-2025 ambulatory [facility] Work Phone: [facility] Work Phone: Start: 05-27-2025 End: 05-27-2025 Patient encounter procedure Katy Arellano NURSE TRANSITION [facility] [place] Work Phone: Start: 05-13-2025 End: 05-13-2025 Refill Darlene Aichholz [employer] Work Phone: [facility] Comment on above: Pulmonary emphysema, unspecified emphysema type (HCC) Start: 05-07-2025 End: 05-07-2025 Refill Darlene Aichholz [employer] Work Phone: [facility] Comment on above: Essential tremor; Vitamin D deficiency Start: 04-21-2025 End: 04-21-2025 [facility] Start: 04-17-2025 End: 04-17-2025 [...] Start: 03-25-2025 End: 03-25-2025 Refill Darlene Nolvia [employer] Work Phone: [facility] Comment on above: Pulmonary emphysema, unspecified emphysema type (CMS/HCC) (Primary Dx) Start: 03-11-2025 End: 03-11-2025 Bamboo flowsheet Darlene Chaz [employer] Work Phone: [facility] Start: 03-11-2025 End: 03-11-2025 Bamboo flowsheet Darlene Aichholz [employer] Work Phone: [facility] Start: 03-11-2025 End: 03-11-2025 Office outpatient visit 15 minutes Darlenekhris De Souza [employer] Work Phone: [facility] Comment on [...] 02-27-2025 Clinisync Result Encounter Darlene De Souza [employer] Work Phone: [facility] Unsolicited Start: 02-27-2025 End: 02-27-2025 Clinisync Result Encounter Darlene Nolvia [employer] Work Phone: [facility] Unsolicited Start: 02-27-2025 End: 02-27-2025 Refill Darlene De Souza [employer] Work Phone: [facility] Comment on [...] outpatient visit 25 minutes Darlene De Souza [employer] Work Phone: [facility] Comment on [...] encounter procedure Saul Pérez DPM Work Phone: [facility] Comment on above: Pain due to onychomy cosis of toenails of both feet (Primary Dx); Venous insufficiency Start: 10-31-2024 End: 10-31-2024 ambulatory SAUL PÉREZ Not Available Start: 10-16-2024 End: 10-16-2024 Bamboo flowsheet Linda Dempsey [employer] Work Phone: [facility] Start: 10-16-2024 End: 10-16-2024 Bamboo flowsheet Linda Dempsey [employer] Work Phone: [facility] Start: 10-16-2024 End: 10-16-2024 Patient encounter procedure Linda Dempsey [employer] Work Phone: [facility] Comment on [...] encounter procedure Saul Pérez DPM Work Phone: [facility] Comment on above: Pain due to onychomy cosis of toenails of both feet (Primary Dx); Venous insufficiency Start: 08-22-2024 End: 08-22-2024 ambulatory SAUL PÉREZ Not Available Start: 07-08-2024 End: 07-08-2024 Bamboo flowsheet Linda Mortonk [employer]ER Work Phone: [facility] Start: 07-08-2024 End: 07-08-2024 Bamboo flowsheet Linda Mortonk [employer] Work Phone: [facility] Start: 07-08-2024 End: 07-08-2024 Office outpatient visit 15 minutes Linda Dempsey [employer] Work Phone: [facility] Comment on above: Pulmonary emphysema, unspecified emphysema type (CMS/HCC) (Primary Dx); Stage 3a chronic kidney disease (HCC) (CMS/HCC); Impacted cerumen of both ears Start: 07-08-2024 End: 07-08-2024 ambulatory LINDA DEMPSEY Not Available Start: 06-13-2024 End: 06-13-2024 ambulatory SAUL PÉREZ Not Available Start: 04-24-2024 End: 04-24-2024 ambulatory SHAIKH DIANE Not Available Start: 10-10-2023 Patient encounter procedure Linda Dempsey [employer] Work Phone: [facility] Start: 07-07-2023 End: 07-07-2023 ambulatory SEBASTIAN [facility] Start: 01-25-2023 End: 01-25-2023 ambulatory SEBASTIAN [facility] Start: 11-10-2022 End: 11-11-[address] MARSHALL DAVISON Facility:[facility] Start: 11-02-2022 End: 11-03-2022 ambulatory YANDY MIRIAM Facility:[facility] Start: 06-28-2022 End: 07-22-2022 ambulatory BARKER H DIANE Facility:[facility] Start: 06-21-2022 End: 06-22-2022 ambulatory BARKER H DIANE Facility:[facility] Start: 06-17-2022 End: 06-17-2022 ambulatory Rowena Haines Other [employer] Other Start: 06-17-2022 Office outpatient vi sit 15 minutes Rowena Yancy [facility] Start: 03-08-2022 End: 03-08-2022 ambulatory Aziz Bakhous Other [employer] Other Start: 03-08-2022 Office outpatient ne w 30 minutes Aziz Bakhous [facility] Start: 02-22-2022 End: 02-23-2022 ambulatory Bobby DIANE Facility:[facility] Start: 12-10-2021 End: 12-11-2021 ambulatory RICHELLE Yang AUDI Facility:[facility] Start: 02-27-2018 End: 02-28-2018 Ambulatory DEFAULT PHYSICIAN Facility:[facility] Procedures Date Procedure Procedure Detail Performing Clinician Start: 03-25-2025 ALL FOLIC ACID Alonso abdul DO Work Phone: Start: 02-27-2025 ALL CBC WITH AUTO DIFF Darlene Nolvia [employer] Work Phone: Start: 01-08-2025 CT CHEST WO CON Generic External Data Provider Start: 10-30-2017 Colonoscopy Linda rosario [employer] Work Phone: Plan of Treatment Date Care Activity Detail Author Start: 10-30-2027 Screening for malign ant neoplasm of colon [facility] Start: 10-16-2025 Medicare Annual Well ness (AWV) Medicare Annual Wellness (AWV) [facility] Start: 07-07-2025 End: 07-07-2025 Patient encounter procedure 07/07/2025 1:00 PM EDT Office Visit [facility] [address] [place] [address] Darlene De Souza, BLANQUITA [address] [place] [address] [facility] Start: 06-30-2025 Influenza vaccination Influenza Vacc ine (#1) [facility] Start: 06-26-2025 End: 06-26-2025 Patient encounter procedure 06/26/2025 2:20 PM EDT Procedure Visit [facility] [address] [facility] [address] [place] [id number] Saul Pérez DPM [address] [facility] [address] [place] [address] [facility] Start: 06-11-2025 End: 06-11-2025 Patient encounter procedure 06/11/2025 1:00 PM EDT Office Visit [facility] [address] [place] [address] Darlene De Souza, BLANQUITA [address] [place] [phone] [facility] Start: 05-27-2025 End: 05-27-2025 Patient encounter procedure 05/27/2025 2:40 PM EDT Office Visit [facility] [address] [place] [address] Katy Floyd NP [address] [place], [place] [facility] [place] Start: 05-07-2025 End: 05-07-2026 25-hydroxyvitamin D3 [Mass/volume] in Serum or Plasma Vitamin D 25 hydroxy Lab Routine Vitamin D deficiency Expected: 05/07/2025 (Approximate), Expires: 05/07/2026 [facility] Work Phone: Comment on above: Expected: 05/07/2025 (Approximate), Expires: 05/07/2026 Start: 04-21-2025 End: 04-21-2025 Patient encounter procedure 04/21/2025 10:30 AM EDT Procedure Visit [facility]TI[facility] [address] [facility] [address] [place] [phone] Alonso Adams DO [address] [place] [address] [facility] Start: 04-17-2025 End: 04-17-2025 Patient encounter procedure 04/17/2025 4:00 PM EDT Procedure Visit [facility] [address] [place] [address] [place] [address] Saul Pérez DPM [address] [facility] [address] [place] [address] Pain due to onychomycosis of toenails of both feet (Primary Dx); Venous insufficiency [facility] Comment on above: Pain due to onychomy cosis of toenails of both feet (Primary Dx); Venous insufficiency Start: 04-03-2025 End: 04-03-2025 Patient encounter procedure 04/03/2025 3:00 PM EDT Procedure Visit [facility] [address] [place] [address] Saul Pérez DPM [address] [facility] [address] [place] [address] [facility] Start: 03-11-2025 End: 03-11-2025 [...] [facility] [address] [facility] [address] [place] [address] Saul Pérez DPM [address] [facility] [address] [place] [address] [facility] Start: 01-06-2025 End: 01-06-2026 25-hydroxyvitamin D3 [Mass/volume] in Serum or Plasma Vitamin D 25 hydroxy Lab Routine Chronic kidney disease, stage 3a (HCC) (CMS/HCC) Expected: 01/06/2025 (Approximate), Expires: 01/06/2026 [facility] Comment on above: Expected: 01/06/2025 (Approximate), Expires: 01/06/2026 Start: 01-06-2025 End: 01-06-2026 CBC W Auto Differential panel - Blood CBC and differential Lab Routine Centrilobular emphysema (CMS/HCC) Chronic respiratory failure with hypoxia (CMS/HCC) Chronic kidney disease, stage 3a (HCC) (CMS/HCC) Expected: 01/06/2025 (Approximate), Expires: 01/06/2026 [facility] Work Phone: Comment on above: Expected: 01/06/2025 (Approximate), Expires: 01/06/2026 Start: 01-06-2025 End: 01-06-2026 Cobalamin (Vitamin B12) [Mass/volume] in Serum or Plasma Vitamin B12 Lab Routine Tremor Expected: 01/06/2025 (Approximate), Expires: 01/06/2026 [facility] Comment on above: Expected: 01/06/2025 (Approximate), Expires: 01/06/2026 Start: 01-06-2025 End: 01-06-2026 Comprehensive metabolic 2000 panel - Serum or Plasma Comprehensive metabolic panel Lab Routine Chronic kidney disease, stage 3a (HCC) (CMS/HCC) Expected: 01/06/2025 (Approximate), Expires: 01/06/2026 [facility] Comment on above: Expected: 01/06/2025 (Approximate), Expires: 01/06/2026 Start: 01-06-2025 End: 01-06-2026 Magnesium [Mass/volume] in Serum or Plasma Magnesium Lab Routine Myalgia Expected: 01/06/2025 (Approximate), Expires: 01/06/2026 [facility] Comment on above: Expected: 01/06/2025 (Approximate), Expires: 01/06/2026 Start: 01-06-2025 End: 01-06-2026 Microalbumin/Creatinine panel in random Urine Microalbumin / creatinine, urine ratio Lab Routine Chronic kidney disease, stage 3a (HCC) ([facility]/HCC) Expected: 01/06/2025 (Approximate), Expires: 01/06/2026 [facility] Comment on above: Expected: 01/06/2025 (Approximate), Expires: 01/06/2026 Start: 01-06-2025 End: 01-06-2026 Thyrotropin [Units/volume] in Serum or Plasma TSH Lab Routine Tremor Expected: 01/06/2025 (Approximate), Expires: 01/06/2026 [facility] Comment on above: Expected: 01/06/2025 (Approximate), Expires: 01/06/2026 Start: 01-06-2025 End: 01-06-2026 Thyroxine (T4) free [Mass/volume] in Serum or Plasma T4, free Lab Routine Tremor Expected: 01/06/2025 (Approximate), Expires: 01/06/2026 [facility] Comment on above: Expected: 01/06/2025 (Approximate), Expires: 01/06/2026 Start: 01-06-2025 End: 01-06-2026 Triiodothyronine (T3) Free [Mass/volume] in Serum or Plasma T3, free Lab Routine Tremor Expected: 01/06/2025 (Approximate), Expires: 01/06/2026 [facility] Comment on above: Expected: 01/06/2025 (Approximate), Expires: 01/06/2026 Start: 01-06-2025 End: 01-06-2026 Urinalysis complete panel - Urine Urinalysis with reflex microscopic (clean catch) Lab Routine Chronic kidney disease, stage 3a (HCC) ([facility]/HCC) Expected: 01/06/2025 (Approximate), Expires: 01/06/2026 [facility] Comment on above: Expected: 01/06/2025 (Approximate), Expires: 01/06/2026 Start: 01-06-2025 End: 01-06-2025 Patient encounter procedure 01/06/2025 9:00 AM EDT Office Visit [facility] [address] [place] [address] Linda Dempsey NP [address] [place] [address] [facility] Start: 11-21-2024 End: 11-21-2024 Patient encounter procedure 11/21/2024 9:00 AM EST Office Visit [facility] [address] [place] [address] Linda Dempsey, BLANQUITA [address] [place] [address] [facility] Start: 10-31-2024 End: 10-31-2024 Patient encounter procedure [facility] Comment on above: Pain due to onychomy cosis of toenails of both feet (Primary Dx); Venous insufficiency Start: 10-17-2024 End: 10-17-2024 Patient encounter procedure [facility] Start: 10-16-2024 End: 10-16-2024 Patient encounter procedure 10/16/2024 10:00 AM EST Office Visit [facility] [address] [place] [address] Linda Dempsey, BLANQUITA [address] [place] [address] Arrived [facility] Comment on above: Arrived Start: 10-10-2024 Medicare Annual Well ness (AWV) Medicare Annual Wellness (AWV) [facility] Start: 10-07-2024 End: 10-07-2024 Patient encounter procedure 10/07/2024 9:00 AM EST Office Visit [facility] [address] [place] [address] Linda Dempsey, [employer] [address] [place] [address] [facility] Start: 08-22-2024 End: 08-22-2024 Patient encounter procedure 08/22/2024 2:20 PM EDT [facility] [address] [facility] [address] [place] [address] Saul Pérez DPM [address] [address] [facility] Start: 08-22-2024 End: 08-22-2024 Patient encounter procedure 08/22/2024 9:20 AM EDT [facility] [address] [facility] [address] [place] [address] Saul Pérez DPM [address] [address] Pain due to onychomycosis of toenails of both feet (Primary Dx); Venous insufficiency [facility] Comment on above: Pain due to onychomy cosis of toenails of both feet (Primary Dx); Venous insufficiency Start: 07-08-2024 End: 07-08-2024 Patient encounter procedure 07/08/2024 10:00 AM EDT [facility] [address] [place] [id number] Linda Dempsey NP [address] [place] [address] Arrived [facility] Comment on above: Arrived Start: 06-30-2024 Influenza vaccination Influenza Vacc ine (#1) [facility] Start: 1950 Screening for malign ant neoplasm of colon [facility] Immunizations Immunization Date Immunization Notes Care Provider Fa cility 08-02-2024 Pneumococcal Conjuga te PCV 20 Darlene De Souza COOKER TENDER Work Phone: [facility] 08-02-2024 SARS-COV-2 (COVID-19 ) vaccine, mRNA, spike protein, LNP, preservative free, 25 mcg/0.25 mL dose CVX 311 Darlene Aichholz COOKER TENDER Work Phone: [facility] 08-02-2024 Seasonal trivalent influenza vaccine, adjuvanted, preservative free Darlene Aichholz [employer]OOKER TENDER Work Phone: [facility] 08-02-2024 influenza virus vacc ine, unspecified formulation Saul Pérez DPM Work Phone: [facility] 09-29-2023 influenza, high dose seasonal, preservative-free Linda Dempsey [employer]OOKER T[employer]ER Work Phone: [facility] 09-29-2023 influenza virus vacc ine, unspecified formulation Linda Dempsey [employer]OOKER TENDER Work Phone: [facility] 08-22-2023 Influenza, Seasonal, Quadrivalent, Adjuvanted Darlene Aichholz COOKER TENDER Work Phone: [facility] 08-01-2022 Seasonal trivalent influenza vaccine, adjuvanted, preservative free Darlene Aichholz [employer]OOKER TENDER Work Phone: [facility] 08-09-2021 Seasonal trivalent influenza vaccine, adjuvanted, preservative free Darlene Aichholz COOKER TENDER Work Phone: [facility] 08-06-2020 pneumococcal polysaccharide vaccine, 23 valent Darlene Aichholz [employer]OOKER TENDER Work Phone: [facility] 08-06-2020 Seasonal trivalent influenza vaccine, adjuvanted, preservative free Darlene Aichholz COOKER TENDER Work Phone: [facility] 08-05-2019 influenza, injectabl e, quadrivalent, contains preservative Darlene Aichholz COOKER TENDER Work Phone: [facility] 12-15-2016 influenza, injectabl e, quadrivalent, preservative free Adrlene Aichholz COOKER TENDER Work Phone: [facility] Payers Date Payer Category Payer Private Health Insurance [employer] [id number] 2021 Unknown 2015 Medicare [id number] 1959 Medicare [id number] [id number] 1959 Medicare [id number] 2.16.840.1.709968.19 1951 Unknown [id number] 2.16.840.1.905299.3.579.2. 593 1951 Unknown [id number] 2.16.840.1.930093.3.579.2. 593 1951 Unknown [id number] 2.16.840.1.137446.3.579.2. 593 1951 Unknown [id number] 2.16.840.1.540816.3.579.2. 593 1951 Unknown [id number] 2.16.840.1.573487.3.579.2. 593 1951 Unknown [id number] 2.16.840.1.645098.3.579.2. 593 1951 Unknown [id number] 2.16.840.1.625288.3.579.2. 1259 1951 Unknown [id number] 2.16.840.1.750656.3.579.2. 1259 1951 Unknown [id number] 2.16.840.1.716107.3.579.2. 1259 1951 Unknown [id number] 2.16.840.1.721968.3.579.2. 1259 1951 Unknown [id number] 2.16.840.1.828160.3.579.2. 9 1950 Unknown [id number] 2.16.840.1.728778.3.579.2. 9 1951 Unknown [id number] 2.16.840.1.960805.3.579.2. 1258 1951 Unknown [id number] 2.16.840.1.576903.3.579.2. 1258 1951 Unknown [id number] 2.16.840.1.061415.3.579.2. 9 1950 Unknown [id number] 2.16.840.1.589408.3.579.2. 1258 1950 Unknown [id number] 2.16.840.1.358681.3.579.2. 1259 Social History Date Type Detail Facility Unknown if ever smoked [facility] Other Start: 07-08-2024 End: 10-16-2024 Sex Assigned At [employer] Other Start: 04-24-2024 [facility] History of tobacco use Current smoker [facility] History of tobacco use Cigarette [facility] Start: 04-24-2024 End: 10-16-2024 Cigarettes smoked current (pack per day) - Reported 1 [facility] History of tobacco use Passive smoker [facility] Start: 04-24-2024 Tobacco use and exposure Smokeless tobacco non-user [facility] Start: 07-08-2024 End: 04-17-2025 Alcoholic beverage intake Lifetime non-drinker (finding) [facility] Start: 1950 Sex assigned at Not on file [facility] Tobacco smoking stat [facility] Unknown if ever smoked [facility] Work Phone: Sex Male (finding) [facility] Start: 1950 Sex Assigned At Male F [facility] Clinical Notes 03-08-2022 to 06-06-2025 Note Date [...] Vitamin D deficiency documented in this encounter [facility] [id number] Evaluation note* Diagnosis Stage 3a chronic kidney [...] Impacted cerumen Chronic kidney disease, stage 3a ([facility]) Vitamin D deficiency Vitamin B12 deficiency Other B-complex deficiencies Pulmonary emphysema, unspecified emphysema type ([facility]) documented in this encounter [facility] [id number] History of Present illness Narrative* Saul Jin [...] HTN CKD (chronic kidney disease), stage III ([facility]) COPD (chronic obstructive pulmonary disease) ([facility]) GOLDEN (dyspnea on exertion) Dyslipidemia (high LDL; [...] of breath, Disp: 18 g, Rfl: 1 Yuqalujyuhy-Xvvpelaaf-Itnqnr (Trelegy Ellipta) 200-62.5-25 MCG/ACT aerosol powder , [...] Partner Violence: Unknown (12/21/2023) Received from [facility] Safety & Environment Fear of Current [...] 10 Saul Pérez DPM [facility] CenterOzmcpjlmsj88-10-6815 Evaluation note* Diagnosis Stage 3a chronic kidney disease ([facility])- Primary Encounter for Medicare annual wellness exam [...] venous (peripheral) insufficiency documented in this encounter [facility] CenterOhiavxmlyq19-94-2324 Evaluation note* Diagnosis Stage 3a chronic kidney [...] type (CMS/HCC)- Primary documented in this encounter [facility] [id number] History of Present illness Narrative* Darlene De [...] cholecalciferol (VITAMIN D-3) 125 mcg, Oral, Daily Wldfbbxyhos-Wikyjljpj-Hfamtc (Trelegy Ellipta) 200-62.5-25 MCG/ACT aerosol powder 1 [...] CKD (chronic kidney disease), stage III (HCC) ([facility]) COPD (chronic obstructive pulmonary disease) ([facility]) GOLDEN (dyspnea on exertion) Dyslipidemia (high LDL; low HDL) ([facility]) Essential tremor Left hip pain Muscle cramping [...] Visit Chronic kidney disease, stage 3a (HCC) ([facility]) Continue to monitor, appears to be stable [...] propranolol at appt 03/05/25 documented [facility] CenterOgbygambbq83-94-8895 Evaluation note* Diagnosis Stage 3a chronic kidney disease (HCC) ([facility])- Primary Encounter for Medicare annual wellness exam [...] Other B-complex deficiencies documented in this encounter [facility] CenterGjbnihidpc65-84-4221 History of Present illness Narrative* Alonso Adams, [...] comes and goes. 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 CenterCphanvgeap62-56-5222 Evaluation note* Diagnosis Stage 3a chronic kidney disease (HCC) (CMS/HCC)- Primary Encounter for Medicare annual wellness exam Pulmonary emphysema, unspecified emphysema type ([facility]/HCC) COPD with exacerbation ([facility]/HCC) Stage 3a chronic kidney disease (HCC) (CMS/HCC)- [...] Abnormal involuntary movements documented in this encounter [facility] CenterRupggzphif38-86-0396 Evaluation note* Diagnosis Stage 3a chronic kidney disease (HCC) (CMS/HCC)- Primary Encounter for Medicare annual wellness exam Pulmonary emphysema, unspecified emphysema type (CMS/HCC) COPD with exacerbation (CMS/HCC) Stage 3a chronic kidney disease (HCC) ([facility]/HCC)- Primary Pulmonary emphysema, unspecified emphysema type ([facility]/HCC) Subconjunctival hemorrhage of left eye Pulmonary emphysema, unspecified emphysema type (CMS/HCC)- Primary Stage 3a chronic kidney disease (HCC) (CMS/HCC) Pulmonary emphysema, unspecified emphysema type (CMS/HCC)- Primary Stage 3a chronic kidney disease (HCC) ([facility]/HCC) Impacted cerumen of both ears Impacted cerumen Screening for prostate cancer- Primary Special screening for malignant neoplasm of prostate Centrilobular emphysema ([facility]/HCC) Chronic respiratory failure with hypoxia ([facility]/HCC) Chronic kidney disease, stage 3a (HCC) ([facility]/HCC) Bronchiectasis, uncomplicated ([facility]/HCC) Myalgia Unspecified myalgia and myositis Tremor Abnormal involuntary movements Impacted cerumen of both ears Impacted cerumen Vitamin D deficiency- Primary documented in this encounter [facility] [id number] History of Present illness Narrative* Saul Pérez, [...] (HCC) (CMS/HCC) COPD (chronic obstructive pulmonary disease) ([facility]/HCC) GOLDEN (dyspnea on exertion) Dyslipidemia (high LDL; low HDL) (CMS/HCC) Essential tremor Left hip pain Muscle cramping Neurogenic claudication due to lumbar spinal stenosis Pain in left lumbar region of back Personal history of nicotine dependence Shortness of breath on exertion Medications: Current Outpatient Medications: albuterol HFA 90 mcg/act inhaler, Inhale 2 puffs every 4 (four) hours if needed for wheezing, Disp:, Rfl: Wnfokqyspmm-Csqnymvos-Erjbxy (Trelegy Ellipta) 200-62.5-25 MCG/ACT aerosol powder , [...] Partner Violence: Unknown (12/21/2023) Received from [facility] [place] Safety [employer] Environment Fear of [...] 10 Saul Pérez DPM documented in [facility] encounter[facility] CenterRtqkkwqajn68-82-0440 Evaluation note* Diagnosis Stage 3a chronic kidney disease (HCC) ([facility]/HCC)- Primary Encounter for Medicare annual wellness exam Pulmonary emphysema, unspecified emphysema type ([facility]/HCC) COPD with exacerbation ([facility]/HCC) Stage 3a chronic kidney disease (HCC) ([facility]/HCC)- Primary Pulmonary emphysema, unspecified emphysema type ([facility]/HCC) Subconjunctival hemorrhage of left eye Pulmonary emphysema, unspecified emphysema type (CMS/HCC)- Primary Stage 3a chronic kidney disease (HCC) ([facility]/HCC) Pulmonary emphysema, unspecified emphysema type (CMS/HCC)- Primary Stage 3a chronic kidney disease (HCC) ([facility]/HCC) Impacted cerumen of both ears Impacted cerumen Screening for prostate cancer- Primary Special screening for malignant neoplasm of prostate Centrilobular emphysema ([facility]/HCC) Chronic respiratory failure with hypoxia ([facility]/HCC) Chronic kidney disease, stage 3a (HCC) ([facility]/HCC) Bronchiectasis, uncomplicated ([facility]/HCC) Myalgia Unspecified myalgia and myositis Tremor Abnormal involuntary movements Impacted cerumen of both ears Impacted cerumen Pain due to onychomycosis of toenails of both feet- Primary Venous insufficiency Unspecified venous (peripheral) insufficiency documented in this encounter [facility] CenterMsgbqxtqqe59-02-1227 History of Present illness Narrative* Darlene De Souza NP - 01/06/2025 2:23 PM EDTAssociated Problem(s): Tremor No family hx of parkinson's Was told some time ago had essential tremors We discussed this, as well as other etiologies Will order some labs and refer to Neurology for evaluation Fu w ia in 8 weeks * Darlene De Souza [...] inhaler 2 puffs, Every 4 hours PRN Qgmiaaridpp-Akauqxnbs-Gbhlbn (Trelegy Ellipta) 200-62.5-25 MCG/ACT aerosol powder 1 [...] CKD (chronic kidney disease), stage III (HCC) ([facility]) COPD (chronic obstructive pulmonary disease) ([facility]) GOLDEN (dyspnea on exertion) Dyslipidemia (high LDL; low HDL) ([facility]) Essential tremor Left hip pain Muscle cramping [...] refer to Neurology for evaluation Fu w ia in 8 weeks Relevant Orders TSH T4, [...] pneumonia and COVID vaccines [facility] CenterEnxgmafdaa81-24-6403 Instructions* Patient Instructions* Darlene De Souza NP - 01/06/2025 1:20 PM EDT Check labs Refer to neurology documented in [facility] encounter[facility] CenterVqqplajpwa40-17-4774 Evaluation note* Diagnosis Stage 3a chronic kidney disease (HCC) (CMS/HCC)- Primary Encounter for Medicare annual wellness exam Pulmonary emphysema, unspecified emphysema type ([facility]/HCC) COPD with exacerbation (CMS/HCC) Stage 3a chronic [...] ears Impacted cerumen documented in this encounter [facility] CenterOwvmoeriaa08-37-2117 History of Present illness Narrative* Saul Pérez [...] CKD (chronic kidney disease), stage III (HCC) ([facility]) COPD (chronic obstructive pulmonary disease) ([facility]) GOLDEN (dyspnea on exertion) Dyslipidemia (high LDL; low HDL) ([facility]) Essential tremor Left hip pain Muscle cramping Neurogenic claudication due to lumbar spinal stenosis Pain in left lumbar region of back Personal history of nicotine dependence Shortness of breath on exertion Medications: Current Outpatient Medications: albuterol HFA 90 mcg/act inhaler, Inhale 2 puffs every 4 (four) hours if needed for wheezing, Disp:, Rfl: Bxuzyegfthz-Ivgswfxtz-Belcnw (Trelegy Ellipta) 200-62.5-25 MCG/ACT aerosol powder , [...] Violence: Unknown (12/21/2023) Re[facility] from [facility] [place] [employer] [facility] Environment Fear of [...] 10 Saul Pérez DPM documented in [facility] CenterGuywbhsblw58-62-5068 Evaluation note* Diagnosis Stage 3a chronic kidney disease (HCC) ([facility])- Primary Encounter for Medicare annual wellness exam Pulmonary emphysema, unspecified emphysema type ([facility]) COPD with exacerbation ([facility]) Stage 3a chronic kidney disease (HCC) ([facility])- Primary Pulmonary emphysema, unspecified emphysema type ([facility]/HCC) Subconjunctival hemorrhage of left eye Pulmonary emphysema, unspecified emphysema type ([facility]/HCC)- Primary Stage 3a chronic kidney disease (HCC) ([facility]/HCC) Pulmonary emphysema, unspecified emphysema type ([facility]/HCC)- Primary Stage 3a chronic kidney disease (HCC) ([facility]/HCC) Impacted cerumen of both ears Impacted cerumen Pain due to onychomycosis of toenails of both feet- Primary Venous insufficiency Unspecified venous (peripheral) insufficiency documented in this encounter [facility] CenterJvbfzqmryh95-70-4731 History of Present illness Narrative* Linda Dempsey [...] 4 (four) hours if needed for wheezing Wqaltzdrxya-Cfigtuijc-Xwpypu (Trelegy Ellipta) 200-62.5-25 MCG/ACT aerosol powder Inhale [...] Do you have a medical power of manager paper?: No Objective : BP 120/86 Pulse 97 [...] on October 16, 2024 documented in this [facility] CenterWzxwlmltww80-98-4730 History of Present illness Narrative* Saul Pérez, [...] on exertion) Dyslipidemia (high LDL; low HDL) (CMS/[facility]) Essential tremor Left hip pain Muscle cramping Neurogenic claudication due to lumbar spinal stenosis Pain in left lumbar region of back Personal history of nicotine dependence Shortness of breath on exertion Medications: Current Outpatient Medications: albuterol HFA 90 mcg/act inhaler, Inhale 2 puffs every 4 (four) hours if needed for wheezing, Disp:, Rfl: Jrijznitjbb-Wimsvqfac-Yhixdd (Trelegy Ellipta) 200-62.5-25 MCG/ACT aerosol powder , [...] Partner Violence: Unknown (12/21/2023) Received from [facility] [place] [facility] Fear of [...] 10 Saul Pérez DPM documented in [facility] CenterNpeehuwvqw15-32-7620 Evaluation note* Diagnosis Stage 3a chronic kidney disease (HCC) ([facility]/HCC)- Primary Encounter for Medicare annual wellness exam Pulmonary emphysema, unspecified emphysema type ([facility]/HCC) COPD with exacerbation ([facility]/HCC) Stage 3a chronic kidney disease (HCC) ([facility]/HCC)- Primary Pulmonary emphysema, unspecified emphysema type ([facility]/HCC) Subconjunctival hemorrhage of left eye Pulmonary emphysema, unspecified emphysema type ([facility]/HCC)- Primary Stage 3a chronic kidney disease (HCC) ([facility]/HCC) Pulmonary emphysema, unspecified emphysema type ([facility]/HCC)- Primary Stage 3a chronic kidney disease (HCC) ([facility]/HCC) Impacted cerumen of both ears Impacted cerumen Pain due to onychomycosis of toenails of both feet- Primary Venous insufficiency Unspecified venous (peripheral) insufficiency documented in this encounter [facility] CenterBarbyiefba54-38-8113 History of Present illness Narrative* Linda Dempsey NP - 07/08/2024 10:33 AM EDTAssociated Problem(s): Stage 3a chronic kidney disease (HCC) ([facility]/HCC) CKD 3, stable. Renal function stable. Avoid nephrotoxic agents. * Linda Dempsey NP - 07/08/2024 10:31 AM EDTAssociated Problem(s): COPD with emphysema ([facility]/HCC) Currently taking Trelegy daily Uses Albuterol PRN [...] Visit Stage 3a chronic kidney disease (HCC) ([facility]) CKD 3, stable. Renal function stable. Avoid nephrotoxic agents. COPD with emphysema ([facility]) - Primary Currently taking Trelegy daily Uses [...] 6.5 % otic solution documented in this [facility]09-09-2024 Instructions* Patient Instructions* Linda Dempsey NP - 07/08/2024 10:00 AM EDT Keep up the good work! Call if you need anything! documented in this [facility]09-08-2023 NoteCardiology Clinic Note Chief Complaint: follow [...] history of COPD (chronic obstructive pulmonary disease) ([facility]), Emphysema of lung ([facility]), and Hypertension. Surgical History He has [...] will check lipid panel (more content not included)...[facility]09-08-2023 Note Patient here for 6 mo follow up abnormal stress test, dyspnea, and hypertension. Still denies chest pain. PCP manages his COPD/emphysema. He had CT chest and lab work a few weeks ago.[facility]03-29-2023 Note Cardiology Clinic Note Chief Complaint: [...] a fixed inferior defect, which could be compliance representative dealer of a prior infarct with scar versus artifact. I discussed with him options, including invasive coronary angiography for delineation of coronary anatomy and ruling out of critical lesions. Patient understands the procedure, and he defers any invasive procedures at this ti (more content not included)...[facility]08-24-2022 NotePROCEDURE: XR HIP LT 2 3V [...] Electronically authenticated by: MARSHALL DAVISON Date: 2022-06-22 08:42[facility]08-19-2022 Evaluation note* Encounter Date Diagnosis Assessment [...] if symptoms worsen or new symptoms occur. [facility] Other 05-10-2022 Evaluation note* Encounter Date Diagnosis [...] Follow-up with the patient in 3 months [facility] Other Evaluation note* Diagnosis Stage 3a chronic [...] Peripheral neuropathy acute Alex y 2024 2:28pm [facility] Work Phone: History general Narrative - Reported* [...] History TEETH Hospitalization History LUNG INFECTION 2013 [facility] Other Reason for referral (narrative)No reason for referral information availableChildren'S Hospital For Rehabilitation Work Phone: Summary Purpose Family History Relationship [...] and content) DATE CREATED AUTHOR 04/19/2018 [facility] DATE CREATED AUTHOR AUTHOR'S ORGANIZ ATION 11/11/2022 [facility] DATE CREATED AUTHOR AUTHOR'S ORGANIZ ATION 07/08/2023 [facility] DATE CREATED AUTHOR AUTHOR'S ORGANIZ ATION 04/20/2025 [facility] dical Specialists EPIC REASON FOR VISIT (unrecogniz ed section and content) Reason Comments Toenail Care Non DM Nails Reason Comments Follow-up 3M0 Reason Comments Toenail Care Non dm nail care Reason Comments Tremors Specialty Diagnoses / Procedures Referred By Contangelique t Referred To Contact Neurology Diagnoses Tremor Procedures [place] OFFICE/OUTPATIENT NEW HIGH MDM 60 MINUTES Darlene De Souza NP [address] [place] [address] Phone: tel: fax: Arnulfo Kwok, DO [address] [place] [address] Phone: tel: fax: Referral ID Status Reason Start Date Expiration Date V isits Requested Visits Authorized [id number] Closed Consult and Treat 01/06/2025 07/05/2025 1 1 Reason Comments Follow-up Reason Comments Med Refill Reason Comments Toenail Care Reason Onset Date Comments Med Refill 05/07/2025 Care Teams (unrecognized sec tion and content) Pricing Director Relationship Specialty Start Date End Date Demetrius Dorado MD [address] [place] [phone] PCP - General Family Medicine 06/05/24 Linda Dempsey NP [address] [place] [phone] Nurse Practitioner Family Medicine 06/05/24 Pricing Director Relationship Specialty Start Date End Date Demetrius Dorado MD [address] [place] [phone] PCP - General Family Medicine 06/05/24 Linda Dempsey NP [address] [place] [phone] Nurse Practitioner Family Medicine 06/05/24 Pricing Director Relationship Specialty Start Date End Date Demetrius Dorado MD [address] [place] [phone] PCP - General Family Medicine 06/05/24 Linda Dempsey NP [address] [place] [address] Nurse Practitioner Family Medicine 06/05/24 Pricing Director Relationship Specialty Start Date End Date Demetrius Dorado MD [address] [place] [phone] PCP - General Family Medicine 06/05/24 Linda Dempsey NP [address] [place] [address] Nurse Practitioner Family Medicine 06/05/24 Pricing Director Relationship Specialty Start Date End Date Demetrius Dorado MD [address] [place] [address] PCP - General Family Medicine 06/05/24 Linda Dempsey NP [address] [place] [address] Nurse Practitioner Family Medicine 06/05/24 Pricing Director Relationship Specialty Start Date End Date Demetrius Dorado MD [address] [place] [address] PCP - General Family Medicine 06/05/24 Linda Dempsey NP [address] [place] [address] Nurse Practitioner Family Medicine 06/05/24 Pricing Director Relationship Specialty Start Date End Date Demetrius Dorado MD [address] [place] [address] PCP - General Family Medicine 06/05/24 Linda Dempsey NP [address] [place] [address] Nurse Practitioner Family Medicine 06/05/24 Pricing Director Relationship Specialty Start Date End Date Demetrius Dorado MD [address] [place] [address] PCP - General Family Medicine 06/05/24 Linda Dempsey NP [address] [place] [address] Nurse Practitioner Family Medicine 06/05/24 Pricing Director Relationship Specialty Start Date End Date Demetrius Dorado MD [address] [place] [address] PCP - General Family Medicine 06/05/24 Linda Dempsey NP [address] [place] [address] Nurse Practitioner Family Medicine 06/05/24 Pricing Director Relationship Specialty Start Date End Date Demetrius Dorado MD [address] [place] [address] PCP - General Family Medicine 06/05/24 Linda Dempsey NP [address] [place] [address] Nurse Practitioner Family Medicine 06/05/24 Pricing Director Relationship Specialty Start Date End Date Demetrius Dorado MD [address] [place] [address] PCP - General Family Medicine 06/05/24 Linda Dempsey BLANQUITA [address] [place] [address] Nurse Practitioner Family Medicine 06/05/24 Pricing Director Relationship Specialty Start Date End Date Demetrius Doardo MD [address] [place] [address] PCP - General Family Medicine 06/05/24 Linda Dempsey NP [address] [place] [address] Nurse Practitioner Family Medicine 06/05/24 Pricing Director Relationship Specialty Start Date End Date Demetrius Dorado MD [address] [place] [address] PCP - General Family Medicine 06/05/24 Linda Dempsey NP [address] [place] [address] Nurse Practitioner Family Medicine 06/05/24 Pricing Director Relationship Specialty Start Date End Date Demetrius Dorado MD [address] [place] [address] PCP - General Family Medicine 06/05/24 Linda Dempsey NP [address] [place] [address] Nurse Practitioner Family Medicine 06/05/24 Pricing Director Relationship Specialty Start Date End Date Demetrius Dorado MD [address] [place] [address] PCP - General Family Medicine 06/05/24 Linda Dempsey NP [address] [place] [address] Nurse Practitioner [facility] 06/05/24 Pricing Director Relationship Specialty Start Date End Date Demetrius Dorado MD [address] [place] [address] PCP - General [facility] 06/05/24 Linda Dempsey NP [address] [place] [address] Nurse Practitioner [facility] 06/05/24 Pricing Director Relationship Specialty Start Date End Date Demetrius Dorado MD [address] [place] [address] PCP - General [facility] 06/05/24 Linda Dempsey NP [address] [place] [address] Nurse Practitioner [facility] 06/05/24 Team Status: Active Member Role Status Dates [facility] Primary Care Provider Activ e Team Status: Inactive Member Role Status Dates Alonso Adams DO Attending Provider Active Sta rt: April 21, 2025 End: April 21, 2025 [facility] Primary Care Provider Activ e Start: April 21, 2025 End: April 21, 2025 Team Status: Inactive Member Role Status Dates Katy Floyd APRN Attending Provider Active Start: May 27, 2025 End: May 27, 2025 [facility] Primary Care Provider Activ e Start: May [...] BE BASED ON THE PRIMARY CLINICAL RECORDS. [employer] [facility]. provides no warranty or guarantee of the accuracy or completeness of information in this document.
[2025-06-19 04:07] LABS: Vitamin B12 1055 pg/mL (232-1245)
== END 2025-06-18 11:03 | disposition home or self-care (01) ==
LOC: LAB 11:03
PROVIDERS: PCP Nurse Practitioner
DX: G60.9 Hereditary and idiopathic neuropathy, unspecified (principal)
CPT/HCPCS: 36415; 82607

== ENCOUNTER 2025-07-14 08:57 | Outpatient (OUT) | payer MEDICARE, OTHER, SELFPAY ==
--- OUTSIDE RECORDS SUMMARY | 2025-07-07 09:59 | XMS_ITS | Continuity of Care Document ---
Author Organization [facility] Address [address] [place] [address] Phone Care Team Providers Care Certified Public Accountant Name Role Phone Yulissa Stanford DO Attending Provider [facility] Care Provide r Katy Floyd APRN Attending Provider Darlene De Souza Attending Provider [phone] Care Teams Patient Care Team Team Status: Active Member Role Status Dates [facility] Primary Care Provider Activ e Visit Care Team Team Status: Inactive Member Role Status Dates Yulissa Stanford DO Attending Provider Active Sta rt: April 21, 2025 End: April 21, 2025 [facility] Primary Care Provider Activ e Start: April 21, 2025 End: April 21, 2025 Visit Care Team Team Status: Inactive Member Role Status Dates Katy Floyd APRN Attending Provider Active Start: May 27, 2025 End: May 27, 2025 [facility] Primary Care Provider Activ e Start: May 27, 2025 End: May 27, 2025 Patient Care Team Team Status: Inactive Member Role Status Dates [facility] Primary Care Provider Activ e Start: July 07, 2025 End: July 07, 2025 Darlene De Souza Attending Provider Active Start: July 07, 2025 End: July 07, 2025 Chief Complaint and Reason for Visit Chief Complaint Admit Date Follow up May 27, 2025 2:28 pm ESTABLISHED PATIENT July 07, 2025 1:01pm Reason for Visit Admit Date Essential tremor May 27, 2025 2:28 pm Peripheral neuropathy May 27, 2025 2: 28pm Vitamin B12 deficiency May 27, 2025 2 :28pm COPD with emphysema July 07, 2025 1:01pm Multiple pulmonary nodules June 1:01pm Syncope and collapse July 07, 2025 1:01pm Reason for Referral Referring Provider Name Referring Provider Address Referring Provider Phone Referral Date Requested Appointment Date Referral Reason July 07, 2025 R91.8 - Other nonspecific abnormal finding of lung field,J96.11 - Chronic respiratory failure with hypoxia,J43.9 - Emphysema, unspecified Allergies, Adverse Reactions, Alerts Allergen Type Severity Reaction Last Updated Verified Status No Known Allergies Allergy Unknown Sept2024 8:10am Yes Active Social History Smoking Status Unknown if ever smoked Observation Status Observation Response Date of Response Legal Sex Male (finding) Sex Assigned At Male December Family History Relationship Condition Age at Onset Recorded Date/T timo daughter Unknown daughter Unknown father Unknown Meningitis Unknown family member Unknown mother Unknown son Unknown Family history of mental disorder Unknown son Unknown sister Family history of mental disorder Unknown Problems Active Problems Medical Problem Onset Date Status Encounter for subsequent [facility] wellness visit (AWV) in Medicare patient Unknown Active Essential tremor Unknown Active Chronic respiratory failure with hypoxia Unknown Active Numbness and tingling Unknown Active Vitamin B12 deficiency Unknown Active Peripheral neuropathy Unknown Active COPD with emphysema Unknown Active Syncope and collapse Unknown Active Multiple pulmonary nodules Unknown Activ e Bronchiectasis Unknown Active Medications Medication Status Dose Units Route Directions Qty Days St art Date Stop Date End Date Instructions Adherence Propranolol 60 mg capsule,ext ended release 24 hr Active 60 MG PO Once 30 June 05, 2025 11:58a m Complies with drug therapy Propranolol 60 mg capsule,ext ended release 24 hr Discont inued 60 MG PO Once May 27, 2025 12:00a m Augus t 2024 11:58 am Albuterol Sulfate 90 mcg/actuati on HFA aerosol inhaler Active 2 PUFF INHALA TION Q6H May 27, 2025 12:00a m Complies with drug therapy Cholecalcif wild (Vitamin D3) 125 mcg (5,000 unit) capsule Active 125 MCG PO Daily May 27, 2025 12:00a m Complies with drug therapy Fluticasone -Umeclidin- Vilanter (Trelegy Ellipta) 200-62.5-25 mcg blister with device Active 1 INH INHALA TION Daily May 27, 2025 12:00a m Complies with drug therapy Vital Signs Vital Reading Result Reference Range Collection Date/Time BP Systolic 110 mm[Hg] 100-140 May 27, 2025 3:04pm BP Diastolic 70 mm[Hg] 60-100 May 27, 2025 3:04pm Height 73 [in_i] July 07, 2025 1:06pm Weight 94.40 kg July 07, 2025 1:06pm Body Temperature 98.3 [degF] 97.6-99.0 July 072024 1:06pm Heart Rate 54 /min 60-100 July 07, 2025 1:06pm Respiratory rate 18 /min 12-24 July 072024 1:06pm Oxygen saturation by Pulse oximetry 94 % 95-100 July 07, 2025 1:06pm BP Systolic 122 mm[Hg] 100-140 July 07, 2025 1:06pm BP Diastolic 84 mm[Hg] 60-100 July 07, 2025 1:06pm BMI (Body Mass Index) 27.4 kg/m2 2024 1:06pm Advance Directives Advance Directive Response Recorded Date/ Time Advance Directives No March 31 2:04pm Insurance Providers Guarantor Spencer Arroyo Address [address] [facility] [address] Contact Info. Home Phone: Payer Policy Id Subscriber's Name Subscriber Id Effectiv e Date Expiration Date MMO [id number] Spencer R Arroyo [id number] Medicare [id number] Spencer R Arroyo [id number] MMO MCR Adv PFFS [id number] Spencer R Arroyo [id number] Encounters Encounter Location(s) Arrival/Admit Date Discharge/Depart Date Provider(s) Departed Physician/Prov ider Office Visit -[facility] Neurology April 21, 2025 10:18am April 21, 2025 11:07am Yulissa Stanford DO Departed Physician/Prov ider Office Visit -[facility] Neu[facility] [place] May 27, 2025 2:28pm May 27, 2025 3:33pm Adan Gimenez APRN Departed Physician/Prov ider Office Visit -[facility] Family [facility] [place] July 07, 2025 1:01pm July 07, 2025 1:58pm Darlene De Souza , BEEF TAGGER-C Recent Diagnosis Onset Date Admit Date Essential tremor Unknown May 27, 2025 2:28pm Peripheral neuropathy Unknown May 27, 2025 2:28pm Vitamin B12 deficiency Unknown April 2:28pm COPD with emphysema Unknown June 1:01pm Multiple pulmonary nodules Unknown 2024 1:01pm Syncope and collapse Unknown July 072024 1:01pm Assessments Diagnosis Onset Date Resolution Status Admit Date Essential tremor acute April 2:28pm Peripheral neuropathy acute Apr y 2024 2:28pm Vitamin B12 deficiency acute Ju ly 2024 2:28pm COPD with emphysema acute 2024 1:01pm Multiple pulmonary nodules acute July 07, 2025 1:01pm Syncope and collapse acute Jun 1:01pm Plan of Treatment Author Darlene De Souza [facility] Authored July 07, 2025 1:45pm was following with dr jones, last CT scan was 01/08/25, recommended fu in 3-[address] chest prescribed inhalers refer to Pulm check labs, unclear if low blood sugar ?SE from his b luis pt to keep close eye to see if happens again, or any near epidoses if it does contact office Author Katy Floyd [facility] Authored May 27, 2025 4:11 pm 75-year-old male with a bila teral upper extremity tremor that at this time is most consistent with an essential tremor with some very mild Parkinson's like symptoms so we will watch him over time. He has a slightly stooped posture and a little bit of tremor at rest but it is not a true pronation supination type of tremor. He is having improvement with Inderal LA 60 mg and denies any s/e. His BP today is on the lower side. He would like to keep dose as it is. He was counseled for light-headedness and syncope and needs to watch his blood pressure. He needs to increase his water intake. Patient has some mild balance disorder and EMG BLE did reveal a severe polyneuropathy. He has some decreased sensation distally and a mildly positive Romberg's. Patient did have a vitamin B12 deficiency (209) 02/27/2025 and ia supplementing with vitamin B12. He will get this checked to see if it is back to normal. Normal folic acid and serum protein electrophoresis. He did have a TSH which was normal. 04/21/2025 EMG BLE severe sensory-motor polyneuropathy 03/25/2025 Folate 16.60, SPEP unremarkable BP 110/60 . . . Plan: Continue with supplement the vitamin B12 Recheck B12 to see what level is after supplement Reviewed electromyograph evaluation Reviewed SPEP and folate Continued Inderal LA 60 mg for tremor control Counseled on lightheadedness hypotension and syncope call if there is an issue Increase his water intake Regular exercise Overall healthy lifestyle including Mediterranean/whole foods diet, regular exercise and good sleep Monitor tremor The diagnosis was all discussed with the patient. All questions were answered and they agreed with the treatment plan. Patient will call if there are any new issues or questions. Pt has been fully educated on their diagnosis, treatment options, follow up plan, and return instructions Future Tests Future scheduled test information is unavailable Pending Tests Test Name Ordered Date Scheduled Date CT chest w con July 07, 2025 1:21pm 1 Shirley clark Comprehensive Metabolic Panel July 07 1:22pm Future Visits Future appointment information is unavailable Referrals to Other Providers Reason for Referral Referral Start Date Provider Provider Contact Information Provider Address R91.8 - Other nonspecific abnormal finding of lung field,J96.11 - Chronic respiratory failure with hypoxia,J43.9 - Emphysema, unspecified July 07, 2025 Arnulfo Quezada MD Work Phone: [address] [place] [address] Future Procedures Procedure Name Ordered Date Scheduled Date Complete Blood Count Auto Diff July 07 1:21pm Magnesium July 07, 2025 1:40pm Vitamin B12 May 27, 2025 3:30pm Future Medications Future medication information is unavailable Patient Instructions Patient instructions are unavailable Hospital Discharge Instructions Ambulatory Orders* Referral to Pulmonology Time Frame: 07/07/25, Location: None Selected
--- OUTSIDE RECORDS SUMMARY | 2025-07-10 16:10 | XMS_ITS | Encounter Summary ---
Author Organization [facility] Address [address] [place] [address] Care Team Providers Care Saw Cleaner Name Role Phone Demetrius Dorado MD Primary Care Provider [phone] Zainab Dempsey NP Unavailable [phone] Reason for Visit * Reason Comments Toenail Care Encounter Details Date Type Department Care Team (Latest Contact Info) Description 07/10/2025 4:10 PM EDT Procedure Visit [facility] [address] [facility] [address] [place] [address] Saul Pérez DPM [address] [facility] [address] [place] [address] Pain due to onychomycosis of [...] HTN CKD (chronic kidney disease), stage III ([facility]) COPD (chronic obstructive pulmonary disease) ([facility]) GOLDEN (dyspnea on exertion) Dyslipidemia (high [...] mouth Daily, Disp: 30 capsule, Rfl: 1 Senyykwbwhp-Mxecdbcmw-Dcfbgu (Trelegy Ellipta) 200-62.5-25 MCG/ACT aerosol powder , [...] Partner Violence: Unknown (12/21/2023) Received from [facility] Safety & Environment Fear of [...] Upcoming Encounters Date Type Department Care Team ([facility] st Contact Info) Description 10/02/2025 4:10 PM EST Procedure Visit [facility] [address] [facility] [address] [place] [address] Saul Pérez DPM [address] [facility] [address] [place] [address] documented as of this encounter Visit Diagnoses Diagnosis Pain due to onychomycosis of toenails of both feet- Primary Venous insufficiency Unspecified venous (peripheral) insufficiency documented in this encounter Additional Health Concerns Assessment Noted Time PHQ-9 Depression Total Score: 0 10/16/20 9:00 AM EST documented as of this encounter Care Teams Saw Cleaner Relationship Specialty Start Date End Date Demetrius Dorado MD [address] [place] [address] PCP - General Family Medicine 06/05/24 Zainab Dempsey NP [address] [place] [address] Nurse Practitioner Family Medicine 06/05/24 documented as of this encounter
--- OUTSIDE RECORDS SUMMARY | 2025-07-14 09:00 | XMS_ITS | Encounter Summary ---
Author Organization [facility] Address [address] [place] [address] Care Team Providers Care Alteration Workroom Supervisor Name Role Phone Demetrius Dorado MD Primary Care Provider [phone] Zainab Dempsey NP Unavailable [phone] Encounter Details Date Type Department Care Team (Late Contact Info) Description 06/07/2024 Clinisync Result Encounter [facility] Department Unsolicited Shaikh Knight MD [address] [place] [address] Social History Tobacco Use Types Packs/Day Years [...] Department Care Team (Late Contact Info) Description 10/02/2025 4:10 PM EST Procedure Visit [facility] [address] [facility] [address] [place] [address] Saul Pérez DPM [address] [facility] [address] [place] [address] documented as of this encounter Procedures Procedure Name Priority Date/Time Associated Diagnosis Comments RT PULMONARY FUNCTION TEST 06/07/2024 9:01 AM EDT documented in this encounter Results * RT PULMONARY FUNCTION TEST (06/07/2024 9:01 AM EDT) Anatomical Region Laterality Modality Other 06/07/2024 9:01 AM EDT Narrative 06/18/2024 7:35 AM EDT [facility] [place] [id number] Respiratory Report Signed Patient: MARTIN ARROYO MR#: [id number] : 1950 Acct:[id number] Age/Sex: 74 / M ADM Date: 06/07/24 Loc: CARD Attending Dr: Shaikh Antonia Sam Ordering Physician: Shaikh Cecy Knight Date of Service: 06/07/24 Procedure(s): RT pulmonary function test Accession Number(s): [id number] cc: [facility] Test Date: 2024-06-07 Pat Name: MARTIN ARROYO Department: Room: - Gender: Male Hogshead Wrecker: Erin Chowdary RRT : 1950 Requested By: [id number] Order Number: [id number] Reading MD: Chandler Mckee Interpretive Statements Pulmonary function testing was completed according to ATS criteria. Findings were considered accurate and reproducible. Both pre- and post-bronchodilator values utilized for spirometry. Spirometry (based on pre-bronchodilator values): -FEV1/FVC: Reduced @ 47% -FEV1: Moderately-severe reduction @ 51% -FVC: Reduced @ 79% -JVO25-76%: Reduced @ 27% -There is no significant [...] Mckee D.O. Signed By: 06/18/24 0735 DD/ 0 TD/TT: Polisher Eyeglass Frames: Procedure Note Radiology, Radiologist, - 06/18/2024 [place] [address] Respiratory Report Signed Patient: MARTIN ARROYO RMR#: [id number] : 1950cct:[id number] Age/Sex: 74 / MADM Date: 06/07/24 Loc: CARD Attending Dr: Shaikh Antonia Sam Ordering Physician: Shaikh Cecy Knight Date of Service: 06/07/24 Procedure(s): RT pulmonary function test Accession Number(s): [id number] cc: [facility] Test Date: 2024-06-07 Pat Name: MARTIN ARROYO Department: Room: - Gender: Male Hogshead Wrecker: Erin Chowdary RRT : 1950 Requested By: [id number] Order Number: [id number] Reading MD: Chandler Mckee Interpretive Statements Pulmonary function testing was completed according to ATS criteria.Findings were considered accurate and reproducible. Both pre- andpost-bronchodilator values utilized for spirometry. Spirometry (based on pre-bronchodilator values): -FEV1/FVC: Reduced @ 47% -FEV1: Moderately-severe reduction @ 51% -FVC: Reduced @ 79% -KDZ77-73%: Reduced @ 27% -There is no significant [...] Chandler Mckee D.O. Signed By:06/18/24 0735 DD/ 0 TD/TT: Polisher Eyeglass Frames: us Shaikh Antonia [facility] Final Result documented in this encounter Visit Diagnoses Not on filedocumented in this encounter Additional Health Concerns Assessment Noted Time PHQ-9 Depression Total Score: 0 10/10/20 23 11:00 AM EST documented as of this encounter Care Teams Alteration Workroom Supervisor Relationship Specialty Start Date End Date Demetrius Dorado MD [address] [place] [address] PCP - General Family Medicine 06/05/24 Zainab Dempsey NP [address] [place] [address] Nurse Practitioner Family Medicine 06/05/24 documented as of this encounter
--- OUTSIDE RECORDS SUMMARY | 2025-07-14 09:00 | XMS_ITS | Clinical Summary ---
Author Organization [facility] Address [address] [place] [address] Care Team Providers Care Sports Apparel Internship Name Role Phone Demetrius Dorado MD Primary Care Provider [phone] Zainab Dempsey NP Unavailable [phone] Allergies No known active allergies Medications Fluticasone-Umec lidin-Vilant (Trelegy Ellipta) 200-62.5-25 MCG/ACT aerosol powder Inhale 1 puff Daily Active propranolol LA (Inderal LA) 60 MG 24 hr capsuleIndicatio ns:Essential tremor Take 1 capsule (60 mg) by mouth Daily Do not crush, chew, or split. 30 capsule 2 5 03/05/20 26 Active albuterol HFA 90 mcg/act inhalerIndicatio ns:Pulmonary emphysema, unspecified emphysema type (HCC) Inhale 2 puffs every 6 (six) hours if needed for wheezing or shortness of breath 18 g 1 5 Active cholecalciferol (Vitamin D-3) 125 MCG (5000 UT) capsuleIndicatio ns:Vitamin D deficiency Take 1 capsule (125 mcg) by mouth Daily 30 capsule 1 5 07/06/20 25 Active Problems Problem Noted Date Diagnosed Date [...] Encounters Date Type Department Care Team Description 07/10/2025 4:10 PM EDT Procedure Visit [facility] [address] [place] [address] [place] [address] Saul Pérez, DPM Pain due to onychomycosis of toenails of both feet (Primary Dx); Venous insufficiency 07/10/2025 Bamboo flowsheet [facility] [address] [facility] [address] [place] [id number] Saul Pérez DPM 07/10/2025 Travel 06/18/2025 Clinisync Result Encounter [facility] External Department Unsolicited Darlene De Souza, BLANQUITA 06/05/2025 Refill [facility] [address] [place] [address] Darlene De Souza, BLANQUITA Vitamin D deficiency 05/20/2025 Abstract [facility] [address] [place] [address] Darlene De Souza NP 05/13/2025 Refill [facility] [address] [place] [address] Darlene De Souza, BLANQUITA Pulmonary emphysema, unspecified emphysema type (HCC) 05/07/2025 Refill [facility] [address] [place] [address] Darlene De Souza, BLANQUITA Essential tremor; Vitamin D deficiency 04/17/2025 4:00 PM EDT Procedure Visit [facility] [address] [facility] [address] [place] [id number] Saul Pérez DPM Pain due to onychomycosis of toenails of both feet (Primary Dx); Venous insufficiency 04/17/2025 Bamboo flowsheet [facility] [address] [facility] [address] [place] [id number] Saul Pérez DPM 04/17/2025 Travel from Last 3 Months Immunizations Immunization Administration [...] 03/11/2025 1:49 PM EDT Respiratory Rate 16 07/10/2025 4:03 PM EDT Oxygen Saturation 90% 03/11/2025 1:49 PM EDT Inhaled Oxygen Concentration - - Weight 95.7 kg (211 lb) 07/10/2025 4:03 PM EDT Height 182.9 cm (6') 07/10/2025 4:03 PM EDT Body Mass Index 28.62 07/10/2025 4:03 PM EDT Plan of Treatment Upcoming Encounters Date Type Department Care Team ([facility] st Contact Info) Description 10/02/2025 4:10 PM EST Procedure Visit [facility] 112 [facility] [address] [place] [address] Saul Pérez DPM [address] [facility] [address] [place] [address] Health Maintenance Due Date Last Done Comments CT Colonography 1950 FIT-DNA 1950 FIT 1950 FOBT 1950 Sigmoidoscopy 1950 Influenza Vaccine (#1) 2025 , 09/29/2023, 08/22/2023, Additional history exists Medicare Annual Wellness (AWV) 10/16/2025 10/16/2024 , 10/10/2023 Colonoscopy 10/30/2027 10/30/2017 Colorectal Cancer Screening 10/30/2027 Pneumococcal Vaccine: 65+ Years Completed 08/02/2024, 10/30/2021, 08/06/2020 Procedures Procedure Name Priority Date/Time Associated Diagnosis Comments VITAMIN B12 Routine 06/18/2025 11:12 AM EDT H VITAMIN D 25 [place] Routine 06/18/2025 1 1:12 AM EDT from Last 3 Months Results * VITAMIN B12 (06/18/2025 11:12 AM EDT) VITAMIN B12 1055 232 - 1245 pg/mL [facility] Comment: Performed at: - [address] [id number] Senior Controls Analyst: Sin Goss PhD, Phone: [phone] 06/18/2025 11:1 2 AM EDT 06/18/2025 11:14 AM EDT Narrative [facility] - 06/19/2025 4:07 AM EDT us Generic External Data Provider LAB BLOOD ORDERAB LES Final Result [facility] VITAMIN D 25 [place] (06/18/2025 11:12 AM EDT) VITAMIN D 53.1 ng/mL [facility] Comment: <20 ng/mL Vit D deficient 20-<30 ng/mL Vit D insufficient 30-100 ng/mL Vit D sufficient >100 ng/mL Potential Toxicity 06/18/2025 11:1 2 AM EDT 06/18/2025 11:14 AM EDT Narrative [facility] - 06/18/2025 1:35 PM EDT us Darlene [place] [facility] Final Result [facility] TB from Last 3 Months Insurance [employer] [place] Care Teams Sports Apparel Internship Relationship Specialty Start Date End Date Demetrius Dorado MD [address] [place] [address] PCP - General Family Medicine 06/05/24 Zainab Dempsey NP [address] [place] [address] Nurse Practitioner Family Medicine 06/05/24
--- OUTSIDE RECORDS SUMMARY | 2025-07-14 09:00 | XMS_ITS | Encounter Summary ---
Author Organization [facility] Address [address] [place] [address] Care Team Providers Care Tube Depatcher Name Role Phone Demetrius Doraod MD Primary Care Provider [phone] Zainab Gerard NP Unavailable [phone] Encounter Details Date Type Department Care Team [...] Care Team (Late st Contact Info) Description 10/02/2025 4:10 PM EST Procedure Visit [facility] 112 [facility] [address] [place] [address] Saul Pérez DPM 3[address] [facility] 5 [place] [address] documented as of this encounter Procedures Procedure Name Priority Date/Time Associated Diagnosis Comments CT LUNG SCREENING LOW DOSE 10/14/2024 11:30 AM EST documented in this encounter Results * CT LUNG SCREENING LOW DOSE (10/14/2024 11:30 AM EST) Anatomical Region Laterality Modality Other 10/14/2024 11:3 0 AM EST Narrative 10/14/2024 11:32 AM EST The [address] [address] [address] Scan Report Signed Patient: MARTIN ARROYO MR#: [id number] : 1950 Acct:[id number] Age/Sex: 74 / M ADM Date: 10/11/24 Loc: CT Attending Dr: Chandler Christensen D.O. Ordering Physician: Chandler Christensen D.O. Date of Service: 10/11/24 Procedure(s): CT lung screening low-dose Accession Number(s): [id number] cc: ZAINAB GERARD [place] [address] Patient Name: MARTIN ARROYO MRN: [facility]:[id number] date: 1950 Sex: M Assigned Patient Location: CT Current Patient Location: Accession/Order Number: [id number] Exam Date: 10/11/2024 10:05 Report Date: 10/14/2024 11:30 At the request of: CHANDLER CHRISTENSEN Procedure: CT lung screening low-dose EXAMINATION: [...] Signed By: 10/14/24 1132 DD/ 1130 TD/TT: Tyre Finisher And Examiner: Procedure Note Radiology, Radiologist, MD - 10/14/2024 [place] [address] CT Scan Report Signed Patient: MARTIN ARROYO RMR#: [id number] : 1950cct:[id number] Age/Sex: 74 / MADM Date: 10/11/24 Loc: CT Attending Dr: Chandler Christensen D.O. Ordering Physician: Chandler Christensen D.O. Date of Service: 10/11/24 Procedure(s): CT lung screening low-dose Accession Number(s): [id number] cc: ZAINAB GERARD The [address] [address] Patient Name: MARTIN ARROYO MRN: [id number] date: 1950 Sex: M Assigned Patient Location: CT Current Patient Location: Accession/Order Number: [id number] Exam Date: 10/11/2024 10:05 Report Date: 10/14/2024 11:30 At the request of: CHANDLER CHRISTENSEN Procedure: CT lung screening low-dose EXAMINATION: [...] M.D. Signed By:10/14/24 1132 DD/ 1130 TD/TT: Tyre Finisher And Examiner: Generic External Data Provider [facility] Final Result documented in this encounter Visit Diagnoses Not on filedocumented in this encounter Additional Health Concerns Assessment Noted Time PHQ-9 Depression Total Score: 0 10/10/20 23 11:00 AM EST documented as of this encounter Care Teams Tube Depatcher Relationship Specialty Start Date End Date Demetrius Dorado MD [address] [place] [address] PCP - General Family Medicine 06/05/24 Zainab Gerard NP [address] [place] [address] Nurse Practitioner Family Medicine 06/05/24 documented as of this encounter
--- OUTSIDE RECORDS SUMMARY | 2025-07-14 09:00 | XMS_ITS | Encounter Summary ---
Author Organization [facility] Address [address] [place] [address] Care Team Providers Care Nematology Teacher Name Role Phone Demetrius Dorado MD Primary Care Provider [phone] Zainab Dempsey NP Unavailable [phone] Encounter Details Date Type Department Care Team (Late Contact Info) Description 07/10/2025 Bamboo flowsheet [facility] [address] [place] [address] Saul Pérez DPM [address] [address] Social History Tobacco Use Types Packs/Day Years [...] [facility] [address] [place] [address] Saul Pérez DPM [address] [address] documented as of this encounter Visit Diagnoses Not on filedocumented in this encounter Additional Health Concerns Assessment Noted Time PHQ-9 Depression Total Score: 0 10/16/20 9:00 AM EST documented as of this encounter Care Teams Nematology Teacher Relationship Specialty Start Date End Date Demetrius Dorado MD [address] [place] [address] PCP - General Family Medicine 06/05/24 Zainab Dempsey NP [address] [place] [address] Nurse Practitioner Family Medicine 06/05/24 documented as of this encounter
--- OUTSIDE RECORDS SUMMARY | 2025-07-14 09:00 | XMS_ITS | Clinical Summary ---
Author Organization [facility] Address [address] [place] [address] Care Team Providers Care Apparatus Repair Mechanic Name Role Phone Shaikh MOIZ Knight Primary [...] 08/06/2021 08/06/2020 COVID-19 Vaccine ( - season) 2025 Influenza Vaccine (#1) 2025 3, 08/22/2023, 08/01/2022, [...] topic Insurance [employer] Care Teams Apparatus Repair Mechanic Relationship Specialty Start Date End Date Shaikh Knight MD PCP - General Family Medicine 01/24/23
--- OUTSIDE RECORDS SUMMARY | 2025-07-14 09:00 | XMS_ITS | Encounter Summary ---
Author Organization [facility] Address [address] [place] [address] Care Team Providers Care Physics And Astronomy Professor Name Role Phone Demetrius Dorado MD Primary Care Provider [phone] Zainab Dempsey NURSING ASSISTANT Unavailable [phone] Encounter Details Date Type Department Care Team (Latest Contact Info) Description 07/10/2025 Travel Social History Tobacco Use Types Packs/Day Years [...] EST Procedure Visit [facility] 112 [facility] 120 [place] [address] Saul Pérez DPM [address] [facility] 5 [place] [address] documented as of this encounter Visit Diagnoses Not on filedocumented in this encounter Additional Health Concerns Assessment Noted Time PHQ-9 Depression Total Score: 0 10/16/20 24 9:00 AM EST documented as of this encounter Care Teams Physics And Astronomy Professor Relationship Specialty Start Date End Date Demetrius Dorado MD [address] [place] [place] [address] PCP - General Family Medicine 06/05/24 Zainab Dempsey NP [address] [place] [address] Nurse Practitioner Family Medicine 06/05/24 documented as of this encounter
--- OUTSIDE RECORDS SUMMARY | 2025-07-14 09:00 | XMS_ITS | Encounter Summary ---
Author Organization [facility] Address [address] [place] [address] Care Team Providers Care Title Officer Name Role Phone Demetrius Dorado MD Primary Care Provider [phone] Zainab Dempsey NP Unavailable Encounter Details Date Type Department Care Team (Late Contact Info) Description 05/20/2025 Abstract [facility] [place] [facility] [address] [place] [address] Darlene De Souza NP [address] [place] [address] Social History Tobacco Use Types Packs/Day Years [...] EST Procedure Visit [facility] [address] [facility] [address] [place] [address] Saul Pérez DPAdan 3006 [facility] 5 [place] [address] documented as of this encounter Visit Diagnoses Not on filedocumented in this encounter Additional Health Concerns Assessment Noted Time PHQ-9 Depression Total Score: 0 10/16/20 9:00 AM EST documented as of this encounter Care Teams Title Officer Relationship Specialty Start Date End Date Demetrius Dorado MD [address] [place] [address] PCP - General Family Medicine 06/05/24 Zainab Dempsey NP [address] [place] [address] Nurse Practitioner Family Medicine 06/05/24 documented as of this encounter
--- OUTSIDE RECORDS SUMMARY | 2025-07-14 09:06 | XMS_ITS | CCD ---
Author Organization [facility] [place] [facility] Care Team Providers Care Batching Operator Name Role Phone PHYSICIAN, DEFAULT Unavailable Unavailable PHYSICIAN, DEFAULT Unavailable Unavailable Lisa Lester Unavailable Yancy Rowena Unavailable DIANE, BARKER H Attending Unavailable DR YANDY MALONEY V Consulting Unavailable RICHELLE HUNTLEY Primary Care Unavailable FAWWAD, BARKER H Admitting Unavailable FAWWAD, BARKER H Referring Unavailable DR MARSHALL DAVISON Consulting Unavailable BRANDID, BARKER H Consulting Unavailable YANDY PÉREZ Consulting [...] Unavailable Ave ROCKWELL, Demetrius Primary Care Provider [phone] Ke JUARES, Linda Unavailable Ke MARINE SERVICE MANAGER, Linda Unavailable Alonso Adams DO Attending Provider [phone] [facility] Primary Care Provide r Katy Floyd APRN Attending Provider Darlene De Souza Attending Provider Demetrius Dorado MD Primary Care Provider [phone] Ke MARINE SERVICE MANAGER, Linda Unavailable [phone] DARLENE DE SOUZA Attending Unavailable SAUL PÉREZ Attending Unavailable ALONSO ADAMS Attending Unavailable DARLENE DE SOUZA Referring Unavailable DARLENE DE SOUZA Attending Unavailable SAUL PÉREZ Attending Unavailable SAUL PÉREZ Attending Unavailable SALU PÉREZ Attending Unavailable LINDA DEMPSEY Attending Unavailabl e SAUL PÉREZ Attending Unavailable Medications Current Medications Medication Drug Class(es) Dates Sig (Normalized) Sig (Original) [id number] 200 actuat albuterol 0.09 mg/actuat metered dose [...] shortness of breath 18 g 1 05/13/2025 Active End: 03-25-2025 take 2 puff(s) by [...] 07/12/2024 Active cholecalciferol 0.125 mg oral capsule (16 sources) Vitamin D Start: 05-07-2025 End: 07-06-2025 take 1 capsule by mouth once daily Cholecalciferol (Vitamin D3) 125 mcg (5,000 unit) capsule Active 125 MCG PO Daily May 27, 2025 12:00am Complies with drug therapy Start: 02-27-2025 End: 03-29-2025 take 1 capsule [...] Inhale 1 puff Daily Active Fluticasone-Umeclidin -Vilanter (2 sources) Start: 05-27-2025 Fluticasone-Umeclidin -Vilanter (Trelegy Ellipta) 200-62.5-25 mcg blister with device Active 1 INH INHALATION Daily May 27, 2025 12:00am Complies with drug therapy methylPREDNISolone 4 mg oral tablet (1 source) Corticosteroid Start: 06-17-2022 methylPREDNISolone 4 MG start tomorrow as directed Orally Once a day for 6 days May, Active 24 hr propranolol hydrochloride 60 mg extended release oral capsule (18 sources) beta-Adrenergic Luis Start: 05-27-2025 End: 06-05-2025 take 1 capsule by mouth every twenty-four hours Propranolol 60 mg capsule,extended release 24 hr Active 60 MG PO Once 30 June 05, 2025 11:58am Complies with drug therapy Start: 03-05-2025 End: [...] oral tablet (1 source) alpha-Adrenergic Agonist, Uncompetitive Z-hciiut-P-aspartate Receptor Antagonist, Sigma-1 Agonist Capmist DM 60-15-400 [...] Translations: [Hyperlipidemia, unspecified] Onset: 07-07-2023 Chronic Mycoses (5 sources) Pain in toe; Translations: [Tinea unguium] 08-19-2024 Episodic Nutritional deficiencies (20 sources) Vitamin D deficiency; Translations: [Vitamin D deficiency, unspecified] Onset: 02-27-2025 02-27-2025 Chronic Other diseases of veins and lymphatics (5 sources) Vascular insufficiency; Translations: [Venous insufficiency (chronic) (peripheral)] 08-19-2024 Episodic Other hereditary and degenerative nervous system conditions (5 sources) Essential tremor; Translations: [Essential tremor] 03-05-2025 Chronic Other lower respiratory disease (4 sources) Other forms of dyspnea; Translations: [OTHER FORMS OF DYSPNEA] Onset: 11-10-2022 Episodic Other nervous system disorders (2 sources) Idiopathic peripheral neuropathy; Translations: [Hereditary and idiopathic neuropathy, unspecified] 03-05-2025 Chronic Other nervous system disorders (4 sources) Peripheral nerve disease ; Translations: [Polyneuropathy, unspecified] 04-22-2025 Chronic Other nervous system disorders (4 sources) Numbness and tingling sensation of skin; [...] failure with hypoxia] Onset: 01-06-2025 01-06-2025 Chronic Respiratory failure; insufficiency; arrest (adult) (1 source) Respiratory failure; insufficiency; arrest (adult) Spondylosis; intervertebral disc disorders; other back problems [...] CIG W/OTH INDUC D/O] Onset: 12-16-2021 Chronic Syncope (2 sources) Syncope and collapse; Translations: [Syncope and collapse] 07-07-2025 Episodic Unclassified (3 sources) LOW BACK PAIN, UNSPECIFIED; Translations: [LOW BACK PAIN, UNSPECIFIED] Onset: 12-16-2021 Unclassified (2 sources) New Patient; Translations: [New Patient] Onset: 01-25-2023 Past or Other Problems Problem Classification Problem Date Documented Date Episodic/Chronic Mood disorders (20 sources) Mood disorders Onset: 10-10-2023 Resolved: 10-16-2024 10-10-2023 Nutritional deficiencies (18 sources) Cobalamin deficiency; Translations: [Deficiency of other specified B group vitamins] Onset: 03-11-2025 03-05-2025 Episodic Other connective tissue disease (20 sources) Muscle [...] Test Name Value Interpretation Reference Range Facility [facility] VITAMIN D 25 OHon 2024 VITAMIN D 53.1 ng/mL [facility] Comment on above: <20 ng/mL Vit D defi cient 20-<30 ng/mL Vit D insufficient 30-100 ng/mL Vit D sufficient >100 ng/mL Potential Toxicity [facility] ALL FOLIC ACIDon 03-25-2025 FOLATE 16.6 ng/mL 8.60 - 58.90 ng/mL [facility] ALL CBC WITH AUTO DIFFon BASOPHILS ABSOLUTE AUTO 0.1 [facility] Basophils/100 WBC (Bld) 0.7 % 0.2 - 2.0 % [facility] Eosinophils/100 WBC (Bld) 1.7 % 0.9 - 7.0 % [facility] Erythrocyte distribution width (RBC) [Ratio] 13.2 % 11.0 - 15.0 % [facility] Hematocrit (Bld) [Volume fraction] 50.2 % 42.0 - 54.0 % [facility] Hemoglobin (Bld) [Mass/Vol] 17.1 g/dL 14.0 - 18.0 g/dL [facility] IMMATURE GRANULOCYTES ABS AUTO 0.02 [facility] Immature granulocytes/100 WBC (Bld) 0.3 % 0.0 - 0.5 % [facility] Interpretation and review of laboratory results Abnormal [facility] re LYMPHOCYTES ABSOLUTE AUTO 1.1 Low [facility] Lymphocytes/100 WBC (Bld) 15.3 % Low 20.5 - 60.0 % [facility] MCH (RBC) [Entitic mass] 32.1 pg 25.9 - 34.0 pg [facility] MCHC (RBC) [Mass/Vol] 34.1 g/dL 29.9 - [...] [facility] e CT CHEST WO CONon 01-08-2025 [place] [address] CT Scan Report Signed Patient: MARTIN DAWN MR#: [id number] : 1950 Acct:[id number] Age/Sex: 74 / M ADM Date: 01/08/25 Loc: CT Attending Dr: Darlene Christensen D.O. Ordering Physician: Darlene Christensen D.O. Date of Service: 01/08/25 Procedure(s): CT chest wo con Accession Number(s): [id number] cc: LINDA DEMPSEY [place] [id number] Patient Name: MARTIN DAWN MRN: [facility]:[id number] date: 1950 Sex: M Assigned Patient Location: CT Current Patient Location: CT Accession/Order Number: [id number] Exam Date: 01/08/2025 18:00 Report Date: 01/08/2025 [...] Tonny Aguilar M.D.01/08/2025 6:07 PM Dictation Location: [place] [address] Electronically authenticated by: [id number] Y Date: 01/08/2025 18:07 Dictated By: Tonny Aguilar D.O. Signed By: 01/08/251809 DD/ 06 TD/TT: Basket Weaver: [facility] Radiology, Radiologist, MD - 01/08/2025 [place] [address] CT Scan Report Signed Patient: MARTIN DAWN MR#: [id number] : 1950 Acct:[id number] Age/Sex: 74 / M ADM Date: 01/08/25 Loc: CT Attending Dr: Darlene Christensen D.O. Ordering Physician: Darlene Christensen D.O. Date of Service: 01/08/25 Procedure(s): CT chest wo con Accession Number(s): [id number] cc: LINDA DEMPSEY [address] [id number] Patient Name: MARTIN DAWN MRN: [facility]:[id number] date: 1950 Sex: M Assigned Patient Location: CT Current Patient Location: CT Accession/Order Number: [id number] Exam Date: 01/08/2025 18:00 Report Date: 01/08/2025 [...] Tonny Aguilar M.D.01/08/2025 6:07 PM Dictation Location: [employer] Electronically authenticated by: [id number] Y Date: 01/08/2025 18:07 Dictated By: Tonny Aguilar D.O. Signed By: 01/08/251809 DD/ 06 TD/TT: Basket Weaver: [facility] Radiology Study observation (narrative) [facility] CT CHEST WO CONOrdered By: Yang fischeriologguera Radiology on 01-08-2025 [facility] [employer] Work Phone: Office Visiton 07-07-2023 Follow-up visit [id number] DawnMartin 1950 M [facility] Provider Department Center [facility] Family History Problem Relation Age of Onset No Known Problems Mother No Known Problems Father Family Status - Relation Status Age at Mother Father Level of Service:93809 [place] OFFICE/OUTPATIENT ESTABLISHED LOW MDM 20-29 MIN Normal [facility] Office Visiton 01-25-2023 Follow-up visit [id number] Martin Dawn 1950 [facility] Provider Department Center 01/25/2023 [facility] No family history on file Level of Service:24392 [place] OFFICE/OUTPATIENT NEW MODERATE MDM 45-59 MINUTES Reason for Visit and Comments: New Patient [632] - Est care- Ongoing SOB and results of heart test Normal [facility] CP ECHO W CONTRASTon 023 CP ECHO W CONTRAST Patient: CRISTI DAWN Exam Date: 11/10/2022 : 1950 Gender:M Ordering : SHAIKH Nathanael CONTRERAS . Admission #: [id number] Family : Order #: [id number] CLICK HERE TO VIEW EXAM ECHOCARDIOGRAM REPORT [...] Paz M.D. on 11/11/2022 at 13:41 Normal [facility] STRESS/REST MULTIon 11-10 PR STRESS/REST MULTI Patient: MARTIN DAWN Exam Date: 11/10/2022 : 1950 Gender:M Ordering : SHAIKH Nathanael CONTRERAS . Admission #: [id number] Family : Order #: [id number] CLICK HERE TO VIEW EXAM RADIOLOGY REPORT PROCEDURE: RADIONUCLIDE IMAGING STRESS/REST MULTI COMPARISON: PR STRESS/REST MULTI, 12/07/2017. INDICATIONS: Dyspnea on exertion [...] M.D. on 11/10/2022 at 15:21 Normal [facility] BNPon 11-02-2022 Natriuretic peptide B (Bld) [Mass/Vol] 122.0 pg/mL Normal <=900.0 [facility] Comment on above: Performed By: #### C MP #### [facility] [address] [place] [address] Dr. Radha Gomez CBC AUTO DIFFon 11-02-2022 BASO # 0.1 103/ul Normal 0.0-0.1 [facility] Comment on above: Performed By: #### C MP #### [facility] [address] [place] [address] Dr. Radha Gomez Basophils/100 WBC (Bld) 0.8 % Normal 0.2-2.0 [facility] Comment on above: Performed By: #### C MP #### [facility] [address] [place] [address] Dr. Radha Gomez EO # 0.1 103/ul Normal 0.0-0.7 [facility] Comment on above: Performed By: #### C MP #### [facility] [address] [place] [address] Dr. Radha Gomez Eosinophils/100 WBC (Bld) 1.9 % Normal 0.9-7.0 [facility] Comment on above: Performed By: #### C MP #### [facility] [address] [place] [address] Dr. Radha Gomez Erythrocyte distribution width (RBC) [Ratio] 12.7 % Normal 11.0-15.0 [facility] Comment on above: Performed By: #### C MP #### [facility] [address] [place] [address] [address] Radha Gomez Hematocrit (Bld) [Volume fraction] 49.8 % Normal 42.0-54.0 [facility] Comment on above: Performed By: #### C MP #### [facility] [address] [place] [address] [address] Radha Gomez Hemoglobin (Bld) [Mass/Vol] 16.9 g/dL Normal 14.0-18.0 [facility] Comment on above: Performed By: #### C MP #### [facility] [address] [place] [address] Dr. Radha Gomez IG # 0.02 10e3/ul Normal 0.00-0.03 [facility] Comment on above: Performed By: #### C MP #### [facility] [address] [place] [address] Dr. Radha Gomez IG % 0.3 % Normal 0.0-0.5 [facility] Comment on above: Performed By: #### C MP #### [facility] [address] [place] [address] Dr. Radha Gomez LYMPH # 1.4 103/ul Normal 1.2-3.8 [facility] Comment on above: Performed By: #### C MP #### [facility] [address] [place] [address] Dr. Radha Gomez Lymphocytes/100 WBC (Bld) 19.3 % Critically low 20.5-60.0 [facility] Comment on above: Performed By: #### C MP #### [facility] [address] [place] [address] [address] Radha Gomez MANUAL DIFF REQ NO Normal [facility] Comment on above: Performed By: #### C MP #### [facility] [address] [place] [address] Dr. Radha Gomez MCH (RBC) [Entitic mass] 31.9 pg Normal 25.9-34.0 [facility] Comment on above: Performed By: #### C MP #### [facility] [address] [place] [address] [address] Radha Gomez MCHC (RBC) [Mass/Vol] 33.9 g/dL Normal 29.9-35.2 [facility] Comment on above: Performed By: #### C MP #### [facility] [address] [place] [address] [address] Radha Gomez MCV (RBC) [Entitic vol] 94.0 fL Normal 80.0-94.0 [facility] Comment on above: Performed By: #### C MP #### [facility] [address] [place] [address] Dr. Radha Gomez MONO # 0.7 103/ul Normal 0.3-0.8 [facility] Comment on above: Performed By: #### C MP #### [facility] [address] [place] [address] Dr. Radha Gomez Monocytes/100 WBC (Bld) 9.5 % Normal 1.7-12.0 [facility] Comment on above: Performed By: #### C MP #### [facility] [address] [place] [address] Dr. Radha Gomez NEUT # 5.0 103/ul Normal 1.4-6.5 [facility] Comment on above: Performed By: #### C MP #### [facility] [address] [place] [address] Dr. Radha Gomez Neutrophils/100 WBC (Bld) 68.2 % Normal 43.0-75.0 [facility] Comment on above: Performed By: #### C MP #### [facility] [address] [place] [address] Dr. Radha Gomez Platelet mean volume (Bld) [Entitic vol] 9.0 fL Critically low 9.5-13.5 [facility] Comment on above: Performed By: #### C MP #### [facility] [address] [place] [address] Dr. Radha Gomez PLT 183 103/ul Normal 150-450 [facility] Comment on above: Performed By: #### C MP #### [facility] [address] [place] [address] Dr. Radha Gomez RBC 5.30 106/ul Normal 4.70-6.10 [facility] Comment on above: Performed By: #### C MP #### [facility] [address] [place] [address] [address] Radha Gomez WBC 7.3 103/ul Normal 4.0-11.0 [facility] Comment on above: Performed By: #### C MP #### [facility] [address] [place] [address] Dr. Radha Gomez PROF CHEM 8 (BAS METB)on Anion gap [Moles/Vol] 11.7 mmol/L Normal [facility] Comment on above: Performed By: #### C MP #### [facility] [address] [place] [address] Dr. Radha Gomez Calcium [Mass/Vol] 9.5 mg/dL Normal 8.5-10.1 [facility] Comment on above: Performed By: #### C MP #### [facility] [address] [place] [address] Dr. Radha Gomez Chloride [Moles/Vol] 105 mmol/L Normal 98-107 [facility] Comment on above: Performed By: #### C MP #### [facility] [address] [place] [address] Dr. Radha Gomez CO2 [Moles/Vol] 27.5 mmol/L Normal 21.0-32.0 [facility] Comment on above: Performed By: #### C MP #### [facility] [address] [place] [address] Dr. Radha Gomez Creatinine [Mass/Vol] 1.35 mg/dL Critically high 0.70-1.30 [facility] Comment on above: Performed By: #### C MP #### [facility] [address] [place] [address] Dr. Radha Gomez EGFR-AF ETHIOPIAN >60 Normal >=60 [facility] Comment on above: Performed By: #### C MP #### [facility] [address] [place] [address] [address] Radha Gomez EGFR-NON AF ETHIOPIAN 52 mL/min/1.73m2 Critically low >=60 [facility] Comment on above: Performed By: #### C MP #### [facility] [address] [place] [address] [address] Radha Gomez Glucose [Mass/Vol] 88 mg/dL Normal 74-[address] [facility] Comment on above: Performed By: #### C MP #### [facility] [address] [place] [address] [address] Radha Gomez Potassium [Moles/Vol] 4.2 mmol/L Normal 3.5-5.1 [facility] Comment on above: Performed By: #### C MP #### [facility] [address] [place] [address] [address] Radha Gomez Sodium [Moles/Vol] 140 mmol/L Normal 136-[address] [facility] Comment on above: Performed By: #### C MP #### [facility] [address] [place] [address] [address] Radha Gomez Urea nitrogen [Mass/Vol] 19.0 mg/dL Critically high 7.0-18.0 [facility] Comment on above: Performed By: #### C MP #### [facility] [address] [place] [address] [address] Radha Gomez Urea nitrogen/Creatinine [Mass ratio] 14.1 mg/mg Normal [facility] Comment on above: Performed By: #### C MP #### [facility] [address] [place] [address] [address] Radha Gomez XR CHEST 2 Von [...] by: YANDY PÉREZ Date: 2022-11-02 08:42 Normal [facility] XR LSPINE 2_3 VIEWSon 2021 XR LSPINE [...] by: YANDY MALONEY Date: 2022-06-21 15:47 Normal [facility] CT CHEST WO CONon 02-22-2022 CT CHEST [...] YANDY MALONEY Date: 2022-02-22 13:27 Normal [facility] CBC AUTO DIFFon 12-10-2021 BASO # 0.1 103/ul Normal 0.0-0.1 [facility] Comment on above: Performed By: #### C BC #### [facility] [address] [place] [address] Dr. Radha Gomez Basophils/100 WBC (Bld) 0.6 % Normal 0.2-2.0 [facility] Comment on above: Performed By: #### C BC #### [facility] [address] [place] [address] Dr. Radha Gomez EO # 0.3 103/ul Normal 0.0-0.7 [facility] Comment on above: Performed By: #### C BC #### [facility] [address] [place] [address] Dr. Radha Gomez Eosinophils/100 WBC (Bld) 3.1 % Normal 0.9-7.0 [facility] Comment on above: Performed By: #### C BC #### [facility] [address] [place] [address] Dr. Radha Gomez Erythrocyte distribution width (RBC) [Ratio] 12.8 % Normal 11.0-15.0 [facility] Comment on above: Performed By: #### C BC #### [facility] [address] [place] [address] Dr. Radha Gomez Hematocrit (Bld) [Volume fraction] 50.9 % Normal 42.0-54.0 [facility] Comment on above: Performed By: #### C BC #### [facility] [address] [place] [address] Dr. Radha Gomez Hemoglobin (Bld) [Mass/Vol] 17.3 g/dL Normal 14.0-18.0 [facility] Comment on above: Performed By: #### C BC #### [facility] [address] [place] [address] Dr. Radha Gomez IG # 0.02 10e3/ul Normal 0.00-0.03 [facility] Comment on above: Performed By: #### C BC #### [facility] [address] [place] [address] Dr. Radha Gomez IG % 0.3 % Normal 0.0-0.5 [facility] Comment on above: Performed By: #### C BC #### [facility] [address] [place] [address] Dr. Radha Gomez LYMPH # 1.4 103/ul Normal 1.2-3.8 [facility] Comment on above: Performed By: #### C BC #### [facility] [address] [place] [address] Dr. Radha Gomez Lymphocytes/100 WBC (Bld) 18.0 % Critically low 20.5-60.0 [facility] Comment on above: Performed By: #### C BC #### [facility] [address] [place] [address] Dr. Radha Gomez MANUAL DIFF REQ NO Normal [facility] Comment on above: Performed By: #### C BC #### [facility] [address] [place] [address] Dr. Radha Gomez MCH (RBC) [Entitic mass] 31.3 pg Normal 25.9-34.0 [facility] Comment on above: Performed By: #### C BC #### [facility] [address] [place] [address] Dr. Radha Gomez MCHC (RBC) [Mass/Vol] 34.0 g/dL Normal 29.9-35.2 [facility] Comment on above: Performed By: #### C BC #### [facility] [address] [place] [address] Dr. Radha Gomez MCV (RBC) [Entitic vol] 92.0 fL Normal 80.0-94.0 [facility] Comment on above: Performed By: #### C BC #### [facility] [address] [place] [address] Dr. Radha Gomez MONO # 0.7 103/ul Normal 0.3-0.8 [facility] Comment on above: Performed By: #### C BC #### [facility] [address] [place] [address] Dr. Radha Gomez Monocytes/100 WBC (Bld) 8.3 % Normal 1.7-12.0 [facility] Comment on above: Performed By: #### C BC #### [facility] [address] [place] [address] Dr. Radha Gomez NEUT # 5.5 103/ul Normal 1.4-6.5 [facility] Comment on above: Performed By: #### C BC #### [facility] [address] [place] [address] Dr. Radha Gomez Neutrophils/100 WBC (Bld) 69.7 % Normal 43.0-75.0 [facility] Comment on above: Performed By: #### C BC #### [facility] [address] [place] [address] Dr. Radha Gomez Platelet mean volume (Bld) [Entitic vol] 9.3 fL Critically low 9.5-13.5 [facility] Comment on above: Performed By: #### C BC #### [facility] [address] [place] [address] Dr. Radha Gomez PLT 168 103/ul Normal 150-450 [facility] Comment on above: Performed By: #### C BC #### [facility] [address] [place] [address] Dr. Radha Gomez RBC 5.53 106/ul Normal 4.70-6.10 [facility] Comment on above: Performed By: #### C BC #### [facility] [address] [place] [address] Dr. Radha Gomez WBC 7.9 103/ul Normal 4.0-11.0 [facility] Comment on above: Performed By: #### C BC #### [facility] [address] [place] [address] LUNG CANCER SCREENINGon 0 - CT LUNG CANCER SCREENING EXAMINATION: CT LUNG [...] MARSHALL DAVISON Date: 2021-12-10 11:08 Normal [facility] PROF 14(COMP METB)on 022 Albumin [Mass/Vol] 3.7 g/dL Normal 3.5-5.0 [facility] Comment on above: Performed By: #### C MP #### [facility] [address] [place], [place] [address] Dr. Radha Gomez Albumin/Globulin [Mass ratio] 1.1 {ratio} Normal [facility] Comment on above: Performed By: #### C MP #### [facility] [address] [place], [place] [address] Dr. Radha Gomez ALP [Catalytic activity/Vol] 92 U/L Normal 38-126 [facility] Comment on above: Performed By: #### C MP #### [facility] [address] [address] [address] Radha Gomez ALT [Catalytic activity/Vol] 26 U/L Normal 21-72 [facility] Comment on above: Performed By: #### C MP #### [facility] [address] [address] [address] Radha Gomez Anion gap [Moles/Vol] 13.0 mmol/L Normal [facility] Comment on above: Performed By: #### C MP #### [facility] [address] [address] [address] Radha Gomez AST [Catalytic activity/Vol] 20 U/L Normal 17-59 [facility] Comment on above: Performed By: #### C MP #### [facility] [address] [place] [address] Dr. Radha Gomez Bilirubin [Mass/Vol] 1.1 mg/dL Normal 0.2-1.3 [facility] Comment on above: Performed By: #### C MP #### [facility] [address] [place] [address] Dr. Radha Gomez Calcium [Mass/Vol] 9.3 mg/dL Normal 8.4-10.2 [facility] Comment on above: Performed By: #### C MP #### [facility] [address] [place] [address] Dr. Radha Gomez Chloride [Moles/Vol] 106 mmol/L Normal 98-107 [facility] Comment on above: Performed By: #### C MP #### [facility] [address] [address] [address] Radha Gomez CO2 [Moles/Vol] 23.4 mmol/L Normal 22.0-30.0 [facility] Comment on above: Performed By: #### C MP #### [facility] [address] [place] [address] Dr. Radha Gomez Creatinine [Mass/Vol] 1.39 mg/dL Critically high 0.66-1.25 [facility] Comment on above: Performed By: #### C MP #### [facility] [address] [address] [address] Radha Gomez EGFR-AF ETHIOPIAN >60 Normal >=60 [facility] Comment on above: Performed By: #### C MP #### [facility] [address] [address] [address] Radha Gomez EGFR-NON AF ETHIOPIAN 51 mL/min/1.73m2 Critically low >=60 [facility] Comment on above: Performed By: #### C MP #### [facility] [address] [address] [address] Radha Gomez Globulin (S) [Mass/Vol] 3.4 g/dL Normal [facility] Comment on above: Performed By: #### C MP #### [facility] [address] [address] [address] Radha Gomez Glucose [Mass/Vol] 94 mg/dL Normal 74-[address] [facility] Comment on above: Performed By: #### C MP #### [facility] [address] [address] [address] Radha Gomez Potassium [Moles/Vol] 4.4 mmol/L Normal 3.4-5.0 [facility] Comment on above: Performed By: #### C MP #### [facility] [address] [address] [address] Radha Gomez Protein [Mass/Vol] 7.1 g/dL Normal 6.1-8.[address] [facility] Comment on above: Performed By: #### C MP #### [facility] [address] [address] [address] Radha Gomez Sodium [Moles/Vol] 138 mmol/L Normal 137-[address] [facility] Comment on above: Performed By: #### C MP #### [facility] [address] [address] [address] Radha Gomez Urea nitrogen [Mass/Vol] 23.0 mg/dL Critically high 9.0-20.0 [facility] Comment on above: Performed By: #### C MP #### [facility] [address] [address] [address] Radha Gomez Urea nitrogen/Creatinine [Mass ratio] 16.5 mg/mg Normal [facility] Comment on above: Performed By: #### C #### [facility] [address] [address] [address] Radha Gomez XR LSPINE 2_3 VIEWSon [...] by: MARSHALL DAVISON Date: 2021-12-10 11:13 Normal [facility] Vital Signs Date Time Vital Sign Value Performing Clinician Facility 07-10-2025 16:03-0400 Body height 182.9 cm Saul Pérez DPM Work Phone: [facility] 07-10-2025 16:03-0400 Body mass index (BMI) [Ratio] 28.62 kg/m2 Saul Pérez DPM Work Phone: [facility] 07-10-2025 16:03-0400 Body weight 95.71 kg Saul Pérez DPM Work Phone: [facility] 07-10-2025 16:03-0400 Respiratory rate 16 /min Saul Pérez DPM Work Phone: [facility] 07-07-2025 13:06-0400 Body height 185.42 cm [facility] [employer] Work Phone: [facility] 07-07-2025 13:06-0400 Body mass index (BMI) [Ratio] 27.4 kg/m2 [facility] Work Phone: [facility] 07-07-2025 13:06-0400 Body temperature 98.3 [degF] [facility] Work Phone: [facility] 07-07-2025 13:06-0400 Body weight 94.4 kg [facility] Work Phone: [facility] 07-07-2025 13:06-0400 Diastolic blood pressure 84 mm[Hg] [facility] Work Phone: [facility] 07-07-2025 13:06-0400 Heart rate 54 /min [facility] Work Phone: [facility] 07-07-2025 13:06-0400 Respiratory rate 18 /min [facility] Work Phone: [facility] 07-07-2025 13:06-0400 SaO2% (BldA) [Mass fraction] 94 % [facility] Work Phone: [facility] 07-07-2025 13:06-0400 Systolic blood pressure 122 mm[Hg] [facility] Work Phone: [facility] 05-27-2025 15:04-0400 Diastolic blood pressure 70 mm[Hg] [facility] Work Phone: [facility] 05-27-2025 15:04-0400 Systolic blood pressure 110 mm[Hg] [facility] Work Phone: [facility] 04-17-2025 16:00-0400 Body height 182.9 cm Saul Pérez DPM Work Phone: [facility] 04-17-2025 16:00-0400 Body mass index (BMI) [Ratio] 28.62 kg/m2 Saul Pérez DPM Work Phone: [facility] 04-17-2025 16:00-0400 Body weight 95.71 kg Saul Pérez DPM Work Phone: [facility] 04-17-2025 16:00-0400 Respiratory rate 16 /min Saul Pérez DPM Work Phone: [facility] 03-11-2025 13:49-0400 Body mass index (BMI) [Ratio] 28.62 kg/m2 Darlenekhris Sidhubobbyholz MARINE SERVICE MANAGER Work Phone: [facility] 03-11-2025 13:49-0400 Body temperature 98.49 [degF] Darlene Theajamez MARINE SERVICE MANAGER Work Phone: [facility] 03-11-2025 13:49-0400 Body weight 95.71 kg Darlene Aichholz MARINE SERVICE MANAGER Work Phone: [facility] 03-11-2025 13:49-0400 Diastolic blood pressure 80 mm[Hg] Darlene Theahholz MARINE SERVICE MANAGER Work Phone: [facility] 03-11-2025 13:49-0400 Heart rate 68 /min Darlene Florencioholz MARINE SERVICE MANAGER Work Phone: [facility] 03-11-2025 13:49-0400 Respiratory rate 20 /min Darlene Aichholz MARINE SERVICE MANAGER Work Phone: [facility] 03-11-2025 13:49-0400 SaO2% (BldA) [Mass fraction] 90 % Darlene Theahholz MARINE SERVICE MANAGER Work Phone: [facility] 03-11-2025 13:49-0400 Systolic blood pressure 118 mm[Hg] Darlene Theahholz MARINE SERVICE MANAGER Work Phone: [facility] 03-05-2025 13:46-0400 Body height 182.9 cm Alonso Hien DO Work Phone: [facility] 03-05-2025 13:46-0400 Body mass index (BMI) [Ratio] 28.35 kg/m2 Alonso Hien DO Work Phone: [facility] 03-05-2025 13:46-0400 Body weight 94.8 kg Alonso Hien DO Work Phone: [facility] 03-05-2025 13:46-0400 Diastolic blood pressure 84 mm[Hg] Alonso Hien DO Work Phone: [facility] 03-05-2025 13:46-0400 Heart rate 85 /min Alonso Hien DO Work Phone: [facility] 03-05-2025 13:46-0400 SaO2% (BldA) [Mass fraction] 93 % Alonso Hien DO Work Phone: [facility] 03-05-2025 13:46-0400 Systolic blood pressure 126 mm[Hg] Alonso Hien DO Work Phone: [facility] 01-23-2025 13:43-0400 Body height 185.4 cm Salu Brown DPM Work Phone: [facility] 01-23-2025 13:43-0400 Body mass index (BMI) [Ratio] 27.57 kg/m2 Saul Pérez DPM Work Phone: [facility] 01-23-2025 13:43-0400 Body weight 94.8 kg Saul Pérez DPM Work Phone: [facility] 01-23-2025 13:43-0400 Diastolic blood pressure 88 mm[Hg] Saul Pérez DPM Work Phone: [facility] 01-23-2025 13:43-0400 Heart rate 70 /min Saul Pérez DPM Work Phone: [facility] 01-23-2025 13:43-0400 Systolic blood pressure 138 mm[Hg] Saul Pérez DPM Work Phone: [facility] 01-06-2025 13:16-0400 Body height 185.4 cm Darlene De Souza MARINE SERVICE MANAGER Work Phone: [facility] 01-06-2025 13:16-0400 Body mass index (BMI) [Ratio] 27.57 kg/m2 Darlene De Souza MARINE SERVICE MANAGER Work Phone: [facility] 01-06-2025 13:16-0400 Body temperature 97.81 [degF] Darlene De Souza MARINE SERVICE MANAGER Work Phone: [facility] 01-06-2025 13:16-0400 Body weight 94.8 kg Darlene De Souza MARINE SERVICE MANAGER Work Phone: [facility] 01-06-2025 13:16-0400 Diastolic blood pressure 88 mm[Hg] Darlene Eubanksz MARINE SERVICE MANAGER Work Phone: [facility] 01-06-2025 13:16-0400 Heart rate 70 /min Darlene Eubanksz MARINE SERVICE MANAGER Work Phone: [facility] 01-06-2025 13:16-0400 Respiratory rate 19 /min Darlene Eubanksz MARINE SERVICE MANAGER Work Phone: [facility] 01-06-2025 13:16-0400 SaO2% (BldA) [Mass fraction] 90 % Darlene Eubanksz MARINE SERVICE MANAGER Work Phone: [facility] 01-06-2025 13:16-0400 Systolic blood pressure 138 mm[Hg] Darlene Eubanksz MARINE SERVICE MANAGER Work Phone: [facility] 10-31-2024 09:17-0500 Body height 185.4 cm Saul Pérez DPM Work Phone: [facility] 10-31-2024 09:17-0500 Body mass index (BMI) [Ratio] 28.5 kg/m2 Saul Pérez DPM Work Phone: [facility] 10-31-2024 09:17-0500 Body weight 97.98 kg Saul Pérez DPM Work Phone: [facility] 10-31-2024 09:17-0500 Respiratory rate 18 /min Saul Pérez DPM Work Phone: [facility] 10-16-2024 09:48-0500 Body height 185.4 cm Linda Dempsey MARINE SERVICE MANAGER Work Phone: [facility] 10-16-2024 09:48-0500 Body mass index (BMI) [Ratio] 28.5 kg/m2 Linda Dempsey MARINE SERVICE MANAGER Work Phone: [facility] 10-16-2024 09:48-0500 Body temperature 97.59 [degF] Linda Dempsey MARINE SERVICE MANAGER Work Phone: [facility] 10-16-2024 09:48-0500 Body weight 97.98 kg Linda Dempsey MARINE SERVICE MANAGER Work Phone: [facility] 10-16-2024 09:48-0500 Diastolic blood pressure 86 mm[Hg] Linda Dempsey MARINE SERVICE MANAGER Work Phone: [facility] 10-16-2024 09:48-0500 Heart rate 97 /min Linda Dempsey MARINE SERVICE MANAGER Work Phone: [facility] 10-16-2024 09:48-0500 Respiratory rate 18 /min Linda Dempsey MARINE SERVICE MANAGER Work Phone: [facility] 10-16-2024 09:48-0500 SaO2% (BldA) [Mass fraction] 93 % Linda Dempsey MARINE SERVICE MANAGER Work Phone: [facility] 10-16-2024 09:48-0500 Systolic blood pressure 120 mm[Hg] Linda Dempsey MARINE SERVICE MANAGER Work Phone: [facility] 08-22-2024 09:34-0400 Body height 185.4 cm Saul Pérez DPM Work Phone: [facility] 08-22-2024 09:34-0400 Body mass index (BMI) [Ratio] 27.71 kg/m2 Saul Pérez DPM Work Phone: [facility] 08-22-2024 09:34-0400 Body weight 95.25 kg Saul Pérez DPM Work Phone: [facility] 08-22-2024 09:34-0400 Diastolic blood pressure 80 mm[Hg] Saul Pérez DPM Work Phone: [facility] 08-22-2024 09:34-0400 Heart rate 88 /min Saul Pérez DPM Work Phone: [facility] 08-22-2024 09:34-0400 Systolic blood pressure 126 mm[Hg] Saul Pérez DPM Work Phone: [facility] 07-08-2024 10:08-0400 Body height 185.4 cm Linda Dempsey MARINE SERVICE MANAGER Work Phone: [facility] 07-08-2024 10:08-0400 Body mass index (BMI) [Ratio] 27.71 kg/m2 Linda Dempsey MARINE SERVICE MANAGER Work Phone: [facility] 07-08-2024 10:08-0400 Body temperature 97.81 [degF] Linda Dempsey MARINE SERVICE MANAGER Work Phone: [facility] 07-08-2024 10:08-0400 Body weight 95.25 kg Linda Dempsey MARINE SERVICE MANAGER Work Phone: [facility] 07-08-2024 10:08-0400 Diastolic blood pressure 86 mm[Hg] Linda Dempsey MARINE SERVICE MANAGER Work Phone: [facility] 07-08-2024 10:08-0400 Heart rate 77 /min Linda Dempsey MARINE SERVICE MANAGER Work Phone: [facility] Comment on above: 96% O2 07-08-2024 10:08-0400 Systolic blood pressure 136 mm[Hg] Linda Dempsey MARINE SERVICE MANAGER Work Phone: [facility] 06-17-2022 10:30-0400 Body height 185.42 cm Rowena Haines Other [facility] Other 06-17-2022 10:30-0400 Body mass index (BMI) [Ratio] 28.36 kg/m2 Rowena Haines Other [facility] Other 06-17-2022 10:30-0400 Body temperature 97.7 [degF] Rowena Haines Other [facility] Other 06-17-2022 10:30-0400 Body weight 97.52 kg Rowena Haines Other [facility] Other 06-17-2022 10:30-0400 Diastolic blood pressure 93 mm[Hg] Rowena Haines Other [facility] Other 06-17-2022 10:30-0400 Respiratory rate 18 /min Rowena Haines Other [facility] Other 06-17-2022 10:30-0400 SaO2% (BldA) [Mass fraction] 95 % Rowena Haines Other [facility] Other 06-17-2022 10:30-0400 Systolic blood pressure 135 mm[Hg] Rowena Haines Other [facility] Other 03-08-2022 11:20-0400 Body height 185.42 cm Lisa Carrillomariela Other [facility] Other 03-08-2022 11:20-0400 Body mass index (BMI) [Ratio] 28.6 kg/m2 Lisa [employer] Other [facility] Other 03-08-2022 11:20-0400 Body temperature 97.9 [degF] Lisa Carrillomariela Other [facility] Other 05-10-2022 11:20-0400 Body weight 98.34 kg Lisa Lester Other [facility] Other 03-08-2022 11:20-0400 Diastolic blood pressure 90 mm[Hg] Lisa Lester Other [facility] Other 03-08-2022 11:20-0400 Respiratory rate 20 /min Lisa Lester Other [facility] Other 03-08-2022 11:20-0400 SaO2% (BldA) [Mass fraction] 90 % Lisa Lester Other [facility] Other 03-08-2022 11:20-0400 Systolic blood pressure 130 mm[Hg] Lisa Lester Other [facility] Other Encounters Encounter Date Encounter Type Care Provider Facility Start: 07-10-2025 End: 07-10-2025 Patient encounter procedure Saul Pérez DPM Work Phone: [facility] Comment on above: Pain due to onychomy cosis of toenails of both feet (Primary Dx); Venous insufficiency Start: 07-10-2025 End: 07-10-2025 ambulatory SAUL PÉREZ Not Available Start: 07-10-2025 End: 07-10-2025 Bamboo flowsheet Saul Pérez DPM Work Phone: [facility] Start: 07-10-2025 End: 07-10-2025 Bamboo flowsheet Saul Pérez DPM Work Phone: [facility] Start: 07-07-2025 End: 07-07-2025 ambulatory [facility] Work [facility] Work Phone: Start: 07-07-2025 End: 07-07-2025 Patient encounter procedure Darlene De Souza MARINE SERVICE MANAGER- -[facility] [place] Work Phone: Start: 07-07-2025 Patient encounter procedure [facility] Work Phone: [facility] Start: 06-18-2025 End: 06-18-2025 Clinisync Result Encounter Darlene Nolvia MARINE SERVICE MANAGER Work Phone: [facility] Unsolicited Start: 06-18-2025 End: 06-18-2025 Clinisync Result Encounter Darlene Nolvia MARINE SERVICE MANAGER Work Phone: [facility] Unsolicited Start: 06-05-2025 End: 06-06-2025 Refill Darlene Chaz MARINE SERVICE MANAGER Work Phone: [facility] Comment on above: Vitamin D deficiency Start: 05-27-2025 End: 05-27-2025 ambulatory [facility] Work Phone: [facility] Work Phone: Start: 05-27-2025 End: 05-27-2025 Patient encounter procedure Katy Arellano NIGHT CLERK -[facility] [place] Work Phone: Start: 05-13-2025 End: 05-13-2025 Refill Darlene Florencioholz MARINE SERVICE MANAGER Work Phone: [facility] Comment on above: Pulmonary emphysema, unspecified emphysema type (HCC) Start: 05-07-2025 End: 05-07-2025 Refill Darlene Aichholz MARINE SERVICE MANAGER Work Phone: [facility] Comment on above: Essential tremor; Vitamin D deficiency Start: 04-21-2025 End: 04-21-2025 Patient encounter procedure Alonso Adams [facility] Work Phone: Start: 04-17-2025 End: 04-17-2025 [...] 03-25-2025 End: 03-25-2025 Clinisync Result Encounter Alonso Oconnellner DO Work Phone: [facility] Unsolicited Start: 03-25-2025 End: 03-25-2025 Refill Darlene De Souza MARINE SERVICE MANAGER Work Phone: [facility] Comment on above: Pulmonary emphysema, unspecified emphysema type (CMS/HCC) (Primary Dx) Start: 03-11-2025 End: 03-11-2025 Bamboo flowsheet Darlene De Souza MARINE SERVICE MANAGER Work Phone: [facility] Start: 03-11-2025 End: 03-11-2025 Bamboo flowsheet Darlene De Souza MARINE SERVICE MANAGER Work Phone: [facility] Start: 03-11-2025 End: 03-11-2025 Office outpatient visit 15 minutes Darlene De Souza MARINE SERVICE MANAGER Work Phone: [facility] Comment on above: Tremor (Primary Dx); Impacted cerumen of both ears; Chronic kidney disease, stage 3a (HCC) (CMS/HCC); Vitamin D deficiency; Vitamin B12 deficiency Start: 03-11-2025 End: 03-11-2025 ambulatory DARLENE NOLVIA Not Available Start: 03-05-2025 End: 03-05-2025 Bamboo flowsheet Alonso Adams DO Work Phone: [facility] Start: 03-05-2025 End: 03-05-2025 Bamboo flowsheet Alonso Adams DO Work Phone: [facility] Start: 03-05-2025 End: 03-05-2025 Office outpatient new 45 minutes Alonso Adams DO Work Phone: [facility] Comment on above: Essential tremor (Pr imary Dx); Idiopathic peripheral neuropathy; Numbness and tingling; Vitamin B12 deficiency; Tremor Start: 03-05-2025 End: 03-05-2025 ambulatory ALONSO ADAMS Not Available Start: 02-27-2025 End: 02-27-2025 Clinisync Result Encounter Darlene De Souza NP Work Phone: [facility] Unsolicited Start: 02-27-2025 End: 02-27-2025 Clinisync Result Encounter Darlene De Souza MARINE SERVICE MANAGER Work Phone: [facility] Unsolicited Start: 02-27-2025 End: 02-27-2025 Refill Darlene De Souza MARINE SERVICE MANAGER Work Phone: [facility] Comment on [...] outpatient visit 25 minutes Darlene De Souza MARINE SERVICE MANAGER Work Phone: [facility] Comment on [...] 10-16-2024 End: 10-16-2024 Bamboo flowsheet Linda Dempsey MARINE SERVICE MANAGER Work Phone: [facility] Start: 10-16-2024 End: 10-16-2024 Bamboo flowsheet Linda Dempsey MARINE SERVICE MANAGER Work Phone: [facility] Start: 10-16-2024 End: 10-16-2024 Patient encounter procedure Linda Mortonk MARINE SERVICE MANAGER Work Phone: [facility] Comment on above: Encounter for Medica re annual wellness exam (Primary Dx) Start: 10-16-2024 End: 10-16-2024 ambulatory LINDA MORTONK Not Available Start: 08-22-2024 End: 08-22-2024 Bamboo [...] 07-08-2024 End: 07-08-2024 Bamboo flowsheet Linda Mortonk MARINE SERVICE MANAGER Work Phone: [facility] Start: 07-08-2024 End: 07-08-2024 Bamboo flowsheet Linda Amandatrick MARINE SERVICE MANAGER Work Phone: [facility] Start: 07-08-2024 End: 07-08-2024 Office outpatient visit 15 minutes Linda Mortonk MARINE SERVICE MANAGER Work Phone: [facility] Comment on above: Pulmonary emphysema, unspecified emphysema type (CMS/HCC) (Primary Dx); Stage 3a chronic kidney disease (HCC) (CMS/HCC); Impacted cerumen of both ears Start: 10-10-2023 Patient encounter procedure Linda Mortonk MARINE SERVICE MANAGER Work Phone: [facility] Start: 07-07-2023 End: 07-07-2023 ambulatory MOHAMAD [facility] Start: 01-25-2023 End: 01-25-2023 [facility] Start: 11-10-2022 End: 11-11-[address] MARSHALL DAVISON Facility:[facility] Start: 11-02-2022 End: 11-03-2022 ambulatory YANDY MIRIAM Facility:[facility] Start: 06-28-2022 End: 07-22-2022 ambulatory SHAIKH Bobby CONTRERAS Facility:[facility] Start: 06-21-2022 End: 06-22-2022 ambulatory SHAIKH Bobby CONTRERAS Facility:[facility] Start: 06-17-2022 End: 06-17-2022 ambulatory Rowena Haines Other [facility] Other Start: 06-17-2022 Office outpatient vi sit 15 minutes Rowena Haines [facility] Start: 03-08-2022 End: 03-08-2022 ambulatory Aziz Bakhous Other [facility] Other Start: 03-08-2022 Office outpatient ne w 30 minutes Aziz Bakhous [facility] Start: 02-22-2022 End: 02-23-2022 ambulatory SHAIKH Bobby PAZSharifa Facility:[facility] Start: 12-10-2021 End: 12-11-2021 ambulatory RICHELLE HUNTLEY Facility:[facility] Start: 02-27-2018 End: 02-28-2018 Ambulatory DEFAULT PHYSICIAN Facility:[facility] Procedures Date Procedure Procedure Detail Performing Clinician Start: 06-18-2025 TBH VITAMIN D 25 [place] Lis a Nolvia MARINE SERVICE MANAGER Work Phone: Start: 03-25-2025 ALL FOLIC ACID Alonso D franko DO Work Phone: Start: 02-27-2025 ALL CBC WITH AUTO DIFF Darlene Nolvia MARINE SERVICE MANAGER Work Phone: Start: 01-08-2025 CT CHEST WO CON Generic External Data Provider Start: 10-30-2017 Colonoscopy Linda rosario NP Work Phone: Plan of Treatment Date Care Activity Detail Author Start: 10-30-2027 Screening for malign ant neoplasm of colon [facility] Start: 10-16-2025 Medicare Annual Well ness (AWV) Medicare Annual Wellness (AWV) [facility] Start: 10-02-2025 End: 10-02-2025 Patient encounter procedure 10/02/2025 4:10 PM EST Procedure Visit [facility] [address] [facility] [address] [place] [phone] Saul Pérez DPM [address] [address] [facility] Start: 07-10-2025 End: 07-10-2025 Patient encounter procedure 07/10/2025 4:10 PM EDT Procedure Visit [facility] [address] [facility] [address] [place] [phone] Saul Pérez DPM [address] [address] Pain due to onychomycosis of toenails of both feet (Primary Dx); Venous insufficiency [facility] Comment on above: Pain due to onychomy cosis of toenails of both feet (Primary Dx); Venous insufficiency Start: 07-07-2025 Patient referral [facility] Work Phone: Start: 07-07-2025 End: 07-07-2025 Patient encounter procedure 07/07/2025 1:00 PM EDT Office Visit [facility] [address] [place] [phone] Darlene De Souza NP [address] [place] [phone] [facility] Start: 06-30-2025 Influenza vaccination Influenza Vacc ine (#1) [facility] Start: 06-26-2025 End: 06-26-2025 Patient encounter procedure 06/26/2025 2:20 PM EDT Procedure Visit [facility] [address] [place] [address] [place] [phone] Saul Pérez, DPAdan [address] [facility] [address] [place] [address] [facility] Start: 06-11-2025 End: 06-11-2025 Patient encounter procedure 06/11/2025 1:00 PM EDT [facility] [address] [place] [address] Darlene De Souza NP [address] [place] [address] [facility] Start: 05-27-2025 End: 05-27-2025 Patient encounter procedure 05/27/2025 2:40 PM EDT Office Visit [facility] [address] [place] [phone] Katy Floyd NP [address] [place], [place] [facility] Start: 05-07-2025 End: 05-07-2026 25-hydroxyvitamin D3 [Mass/volume] in Serum or Plasma Vitamin D 25 hydroxy Lab Routine Vitamin D deficiency Expected: 05/07/2025 (Approximate), Expires: 05/07/2026 [facility] Work Phone: Comment on above: Expected: 05/07/2025 (Approximate), Expires: 05/07/2026 Start: 04-21-2025 End: 04-21-2025 Patient encounter procedure 04/21/2025 10:30 AM EDT Procedure Visit [facility] [place] [address] [facility] [address] [place] [phone] Alonso Adams DO [address] [place], [place] [id number] [facility] Start: 04-17-2025 End: 04-17-2025 Patient encounter procedure 04/17/2025 4:00 PM EDT Procedure Visit [facility] [address] [facility] [address] [place] [address] Saul Pérez, DPM [address] [address] Pain due to onychomycosis of toenails of both feet (Primary Dx); Venous insufficiency [facility] Comment on above: Pain due to onychomy cosis of toenails of both feet (Primary Dx); Venous insufficiency Start: 04-03-2025 End: 04-03-2025 Patient encounter procedure 04/03/2025 3:00 PM EDT Procedure Visit [facility] [address] [facility] [address] [place] [phone] Saul Pérez DPM [address] [address] [facility] Start: 03-11-2025 End: 03-11-2025 Patient encounter procedure [facility] Comment on above: Tremor (Primary Dx); Impacted [...] procedure 01/16/2025 9:40 AM EDT Procedure Visit [facility] [address] [address] Saul Pérez, DPAdan 3006 [facility] 5 [place] [address] [facility] Start: 01-06-2025 End: 01-06-2026 25-hydroxyvitamin D3 [Mass/volume] in Serum or Plasma Vitamin D 25 hydroxy Lab Routine Chronic kidney disease, stage 3a (HCC) (CMS/HCC) Expected: 01/06/2025 (Approximate), Expires: 01/06/2026 [facility] Comment on above: Expected: 01/06/2025 (Approximate), Expires: 01/06/2026 Start: 01-06-2025 End: 01-06-2026 CBC W Auto Differential panel - Blood CBC and differential Lab Routine Centrilobular emphysema (CMS/HCC) Chronic respiratory failure with hypoxia (CMS/HCC) Chronic kidney disease, stage 3a (HCC) (CMS/HCC) Expected: 01/06/2025 (Approximate), Expires: 01/06/2026 [facility] Work Phone: Comment on above: Expected: 01/06/2025 (Approximate), Expires: 01/06/2026 Start: 01-06-2025 End: 01-06-2026 Cobalamin (Vitamin B12) [Mass/volume] in Serum or Plasma Vitamin B12 Lab Routine Tremor Expected: 01/06/2025 (Approximate), Expires: 01/06/2026 [facility] Comment on above: Expected: 01/06/2025 (Approximate), Expires: 01/06/2026 Start: 01-06-2025 End: 01-06-2026 Comprehensive metabolic 2000 panel - Serum or Plasma Comprehensive metabolic panel Lab Routine Chronic kidney disease, stage 3a (HCC) ([facility]/HCC) Expected: 01/06/2025 (Approximate), Expires: 01/06/2026 [facility] Comment on above: Expected: 01/06/2025 (Approximate), Expires: 01/06/2026 Start: 01-06-2025 End: 01-06-2026 Magnesium [Mass/volume] in Serum or Plasma Magnesium Lab Routine Myalgia Expected: 01/06/2025 (Approximate), Expires: 01/06/2026 [facility] Comment on above: Expected: 01/06/2025 (Approximate), Expires: 01/06/2026 Start: 01-06-2025 End: 01-06-2026 Microalbumin/Creatinine panel in random Urine Microalbumin / creatinine, urine ratio Lab Routine Chronic kidney disease, stage 3a (HCC) ([facility]/HCC) Expected: 01/06/2025 (Approximate), Expires: 01/06/2026 [facility] Comment on above: Expected: 01/06/2025 (Approximate), Expires: 01/06/2026 Start: 01-06-2025 End: 01-06-2026 Thyrotropin [Units/volume] in Serum or Plasma TSH Lab Routine Tremor Expected: 01/06/2025 (Approximate), Expires: 01/06/2026 [facility] Comment on above: Expected: 01/06/2025 (Approximate), Expires: 01/06/2026 Start: 01-06-2025 End: 01-06-2026 Thyroxine (T4) free [Mass/volume] in Serum or Plasma T4, free Lab Routine Tremor Expected: 01/06/2025 (Approximate), Expires: 01/06/2026 [facility] Comment on above: Expected: 01/06/2025 (Approximate), Expires: 01/06/2026 Start: 01-06-2025 End: 01-06-2026 Triiodothyronine (T3) Free [Mass/volume] in Serum or Plasma T3, free Lab Routine Tremor Expected: 01/06/2025 (Approximate), Expires: 01/06/2026 [facility] Comment on above: Expected: 01/06/2025 (Approximate), Expires: 01/06/2026 Start: 01-06-2025 End: 01-06-2026 Urinalysis complete panel - Urine Urinalysis with reflex microscopic (clean catch) Lab Routine Chronic kidney disease, stage 3a (HCC) (CMS/HCC) Expected: 01/06/2025 (Approximate), Expires: 01/06/2026 [facility] Comment on above: Expected: 01/06/2025 (Approximate), Expires: 01/06/2026 Start: 01-06-2025 End: 01-06-2025 Patient encounter procedure 01/06/2025 9:00 AM EDT Office Visit [facility] [address] [place] [phone] Linda Dempsey, MARINE SERVICE MANAGER [address] [place] [phone] [facility] Start: 11-21-2024 End: 11-21-2024 Patient encounter procedure 11/21/2024 9:00 AM EST Office Visit [facility] [address] [place] [phone] Linda Dempsey, MARINE SERVICE MANAGER [address] [place] [phone] [facility] Start: 10-31-2024 End: 10-31-2024 Patient encounter procedure [facility] Comment on above: Pain due to onychomy cosis of toenails of both feet (Primary Dx); Venous insufficiency Start: 10-17-2024 End: 10-17-2024 Patient encounter procedure [facility] Start: 10-16-2024 End: 10-16-2024 Patient encounter procedure 10/16/2024 10:00 AM EST Office Visit [facility] [address] [place] [address] Linda Dempsey NP [address] [place] [address] Arrived [facility] Comment on above: Arrived Start: 10-10-2024 Medicare Annual Well ness (AWV) Medicare Annual Wellness (AWV) [facility] Start: 10-07-2024 End: 10-07-2024 Patient encounter procedure 10/07/2024 9:00 AM EST Office Visit [facility] [address] [place] [address] Linda Dempsey, BLANQUITA [address] [place] [address] [facility] Start: 08-22-2024 End: 08-22-2024 Patient encounter procedure 08/22/2024 2:20 PM EDT Procedure Visit [facility] [address] [place] [address] [place] [phone] Saul Pérez DPM [address] [address] [facility] Start: 08-22-2024 End: 08-22-2024 Patient encounter procedure 08/22/2024 9:20 AM EDT Procedure Visit [facility] [address] [place] [address] [place] [phone] Saul Pérez, DPM [address] [address] Pain due to onychomycosis of toenails of both feet (Primary Dx); Venous insufficiency [facility] Comment on above: Pain due to onychomy cosis of toenails of both feet (Primary Dx); Venous insufficiency Start: 07-08-2024 End: 07-08-2024 Patient encounter procedure 07/08/2024 10:00 AM EDT [facility] [address] [place] [address] Linda Dempsey NP [address] [place] [address] Arrived [facility] Comment on above: Arrived Start: 06-30-2024 Influenza vaccination Influenza Vacc ine (#1) [facility] Start: 1950 Screening for malign ant neoplasm of colon [facility] Comprehensive metabo lic 2000 panel - Serum or Plasma [facility] CT Chest W contrast IV [facility] Patient referral [facility] Work Phone: [facility] Immunizations Immunization Date Immunization Notes Care Provider Fa cility 08-02-2024 Pneumococcal Conjuga te PCV 20 Darlene De Souza MARINE SERVICE MANAGER Work Phone: [facility] 08-02-2024 SARS-COV-2 (COVID-19 ) vaccine, mRNA, spike protein, LNP, preservative free, 25 mcg/0.25 mL dose CVX 311 Darlene De Souza MARINE SERVICE MANAGER Work Phone: [facility] 08-02-2024 Seasonal trivalent influenza vaccine, adjuvanted, preservative free Darlene De Souza MARINE SERVICE MANAGER Work Phone: [facility] 08-02-2024 influenza virus vacc ine, unspecified formulation Saul Pérez DPM Work Phone: [facility] 09-29-2023 influenza, high dose seasonal, preservative-free Linda Dempsey MARINE SERVICE MANAGER Work Phone: [facility] 09-29-2023 influenza virus vacc ine, unspecified formulation Linda Dempsey MARINE SERVICE MANAGER Work Phone: [facility] 08-22-2023 Influenza, Seasonal, Quadrivalent, Adjuvanted Darlene Aichholz MARINE SERVICE MANAGER Work Phone: [facility] 08-01-2022 Seasonal trivalent influenza vaccine, adjuvanted, preservative free Darlene Aichholz MARINE SERVICE MANAGER Work Phone: [facility] 08-09-2021 Seasonal trivalent influenza vaccine, adjuvanted, preservative free Darlene Aichholz MARINE SERVICE MANAGER Work Phone: [facility] 08-06-2020 pneumococcal polysaccharide vaccine, 23 valent Darlene Aichholz MARINE SERVICE MANAGER Work Phone: [facility] 08-06-2020 Seasonal trivalent influenza vaccine, adjuvanted, preservative free Darlene Aichholz MARINE SERVICE MANAGER Work Phone: [facility] 08-05-2019 influenza, injectabl e, quadrivalent, contains preservative Darlene Aichholz MARINE SERVICE MANAGER Work Phone: [facility] 12-15-2016 influenza, injectabl e, quadrivalent, preservative free Darlene Aichholz MARINE SERVICE MANAGER Work Phone: [facility] Payers Date Payer Category Payer Private Health Insurance [employer] [id number] 2021 Unknown 2015 Medicare [id number] 1959 Medicare [id number] 1959 Medicare [id number] [id number] 1951 Unknown [id number] 2.16.840.1.464283.3.579.2. 593 1951 Unknown [id number] 2.16.840.1.356360.3.579.2. 593 1951 Unknown [id number] 2.16.840.1.514464.3.579.2. 593 1951 Unknown [id number] 2.16.840.1.008020.3.579.2. 593 1951 Unknown [id number] 2.16.840.1.684578.3.579.2. 593 1951 Unknown [id number] 2.16.840.1.998039.3.579.2. 593 1951 Unknown [id number] 2.16.840.1.241038.3.579.2. 1259 1951 Unknown [id number] 2.16.840.1.420498.3.579.2. 1259 1951 Unknown [id number] 2.16.840.1.270316.3.579.2. 1259 1951 Unknown [id number] 2.16.840.1.886869.3.579.2. 1259 1951 Unknown [id number] 2.16.840.1.891920.3.579.2. 1259 1951 Unknown [id number] 2.16.840.1.095142.3.579.2. 1259 1951 Unknown [id number] 2.16.840.1.522701.3.579.2. 1259 1951 Unknown [id number] 2.16.840.1.258454.3.579.2. 1259 1950 Unknown [id number] 2.16.840.1.419425.3.579.2. 1259 Social History Date Type Detail Facility Unknown if ever smoked [facility] [employer] Other Start: 07-08-2024 End: 10-16-2024 Sex Assigned At [facility] [employer] Other Start: 04-24-2024 Tobacco smoking stat [facility] Ex-smoker [facility] History of tobacco use Current smoker [facility] History of tobacco use Cigarette Smoker [facility] Start: 04-24-2024 End: 10-16-2024 Cigarettes smoked current (pack per day) - Reported 1 [facility] History of tobacco use Passive smoker [facility] Start: 04-24-2024 Tobacco use and exposure Smokeless tobacco non-user [facility] Start: 07-08-2024 End: 07-10-2025 Alcoholic beverage intake Lifetime non-drinker (finding) [facility] Start: 1950 Sex assigned at Not on file [facility] Tobacco smoking stat [facility] Unknown if ever smoked [facility] Work Phone: Sex Male (finding) [facility] Start: 1950 Sex Assigned At Male [facility] Clinical Notes 03-08-2022 to 07-10-2025 Saul Pérez, ALIA - 07/10/2025 4:10 PM EDT Note Date & Type Note Facility 07-10-2025 History of Presen t illness Narrative Patient: Martin Dawn : 1950 PCP: Demetrius [...] HTN CKD (chronic kidney disease), stage III ([facility]) COPD (chronic obstructive pulmonary disease) ([facility]) GOLDEN (dyspnea on exertion) Dyslipidemia [...] mouth Daily, Disp: 30 capsule, Rfl: 1 Sycxsdrcqbz-Mczakiffk-Zgmvsn (Trelegy Ellipta) 200-62.5-25 MCG/ACT aerosol powder , [...] Partner Violence: Unknown (12/21/2023) Received from [facility] [employer] Environment Fear of Current [...] Saul Pérez DPM documented in this encounter [facility] 07-10-2025 Evaluation note Diagnosis Stage 3a chronic kidney [...] Impacted cerumen Chronic kidney disease, stage 3a ([facility]-HCC) Vitamin D deficiency Vitamin B12 deficiency Other B-complex deficiencies Pain due to onychomycosis of toenails of both feet- Primary Venous insufficiency Unspecified venous (peripheral) insufficiency documented in this encounter [facility] HospitalWhgkpmztki04-98-9692 Evaluation note* Diagnosis Stage 3a chronic kidney [...] Vitamin D deficiency documented in this encounter [facility] HospitalHgskahbozm92-46-7217 Evaluation note* Diagnosis Onset Date Resolution Status Admit Date Essential tremor acute April 2:28pm Peripheral neuropathy acute Apr 2:28pm Vitamin B12 deficiency acute Ju ly 2024 2:28pm COPD with emphysema acute 2024 1:01pm Multiple pulmonary nodules acute July 07, 2025 1:01pm Syncope and collapse acute Jun 1:01pm [facility] Work Phone: [phone]) 134-114907-15-2025 Evaluation note* Diagnosis Stage 3a chronic kidney disease ([facility]-HCC)- Primary Encounter for Medicare annual wellness exam [...] B-complex deficiencies Pulmonary emphysema, unspecified emphysema type (HCC) documented in this encounter [facility] HospitalYgdlruuqqt46-66-8999 History of Present illness Narrative* Saul Pérez DPM - 04/17/2025 4:00 PM EDT Patient: [...] HTN CKD (chronic kidney disease), stage III (CMS-HCC) COPD (chronic obstructive pulmonary disease) (HCC) GOLDEN (dyspnea on exertion) Dyslipidemia (high LDL; [...] of breath, Disp: 18 g, Rfl: 1 Vsmrslkhdta-Znniyjxpf-Dkahvg (Trelegy Ellipta) 200-62.5-25 MCG/ACT aerosol powder , [...] Partner Violence: Unknown (12/21/2023) Received from [facility] [employer] Environment Fear of Current [...] 10 Saul Pérez DPM documented in this encounterCooper [facility] HospitalBdqtwbpanz42-34-0095 Evaluation note* Diagnosis Stage 3a chronic kidney [...] venous (peripheral) insufficiency documented in this encounter [facility] HospitalCltuswkwww52-21-9207 Evaluation note* Diagnosis Stage 3a chronic kidney [...] type (CMS/HCC)- Primary documented in this encounter [facility] HospitalJtcpxhhiaa97-73-3501 History of Present illness Narrative* Darlene De [...] Problem(s): Chronic kidney disease, stage 3a (HCC) ([facility]/HCC) Continue to monitor, appears to be stable * Darlene De Souza, MARINE SERVICE MANAGER - 03/11/2025 1:40 PM EDT Images from [...] cholecalciferol (VITAMIN D-3) 125 mcg, Oral, Daily Aoigfxaejcp-Evvpanbop-Bhbgjm (Trelegy Ellipta) 200-62.5-25 MCG/ACT aerosol powder 1 [...] (HCC) (CMS/HCC) COPD (chronic obstructive pulmonary disease) ([facility]/HCC) GOLDEN (dyspnea on exertion) Dyslipidemia (high LDL; [...] propranolol at appt 03/05/25 documented in this encounterCooper [facility] HospitalPesmedngws29-97-8761 Evaluation note* Diagnosis Stage 3a chronic kidney disease (HCC) ([facility]/HCC)- Primary Encounter for Medicare annual wellness exam Pulmonary emphysema, unspecified emphysema type ([facility]/HCC) COPD with exacerbation (CMS/HCC) Stage 3a chronic kidney disease (HCC) ([facility]/HCC)- Primary Pulmonary emphysema, unspecified emphysema type ([facility]/HCC) Subconjunctival hemorrhage of left eye Pulmonary emphysema, unspecified emphysema type (CMS/HCC)- Primary Stage 3a chronic kidney disease (HCC) (CMS/HCC) Pulmonary emphysema, unspecified emphysema type (CMS/HCC)- Primary Stage 3a chronic kidney disease (HCC) (CMS/HCC) Impacted cerumen of both ears Impacted cerumen Screening for prostate cancer- Primary Special screening for malignant neoplasm of prostate Centrilobular emphysema ([facility]/HCC) Chronic respiratory failure with hypoxia (CMS/HCC) Chronic kidney disease, stage 3a (HCC) ([facility]/HCC) Bronchiectasis, uncomplicated ([facility]/HCC) Myalgia Unspecified myalgia and myositis Tremor Abnormal involuntary movements Impacted cerumen of both ears Impacted cerumen Tremor- Primary Abnormal involuntary movements Impacted cerumen of both ears Impacted cerumen Chronic kidney disease, stage 3a (HCC) ([facility]/HCC) Vitamin D deficiency Vitamin B12 deficiency Other B-complex deficiencies documented in this encounter [facility] HospitalNrbohzntrw73-57-6373 History of Present illness Narrative* Alonso Adams DO - 03/05/2025 2:00 PM EDT Images from [...] comes and goes. 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 glass it can be difficult and [...] CKD (chronic kidney disease), stage III (HCC) ([facility]) COPD (chronic obstructive pulmonary disease) ([facility]) GOLDEN (dyspnea on exertion) Dyslipidemia (high LDL; low HDL) ([facility]) Essential tremor Left hip pain [...] to clinic: 2 months documented in this encounterCooper [facility] HospitalEnyhzlyjdg79-02-5015 Evaluation note* Diagnosis Stage 3a chronic kidney [...] Abnormal involuntary movements documented in this encounter [facility] HospitalKvrigisoaz26-29-6802 Evaluation note* Diagnosis Stage 3a chronic kidney [...] D deficiency- Primary documented in this encounter [facility] HospitalCowerhqduu64-27-5085 History of Present illness Narrative* Saul Pérez DPM - 01/23/2025 1:50 PM EDT Patient: [...] CKD (chronic kidney disease), stage III (HCC) ([facility]) COPD (chronic obstructive pulmonary disease) ([facility]) GOLDEN (dyspnea on exertion) Dyslipidemia (high LDL; low HDL) ([facility]) Essential tremor Left hip pain Muscle cramping Neurogenic claudication due to lumbar spinal stenosis Pain in left lumbar region of back Personal history of nicotine dependence Shortness of breath on exertion Medications: Current Outpatient Medications: albuterol HFA 90 mcg/act inhaler, Inhale 2 puffs every 4 (four) hours if needed for wheezing, Disp:, Rfl: Hjokrizunvz-Yuyjtcdpk-Dtehav (Trelegy Ellipta) 200-62.5-25 MCG/ACT aerosol powder , [...] Partner Violence: Unknown (12/21/2023) Received from [facility], [facility] [place] [employer] Environment Fear of [...] 10 Saul Pérez DPM documented in this encounterCooper County Memorial HospitalNzntjnfhps39-75-4401 Evaluation note* Diagnosis Stage 3a chronic kidney disease (HCC) ([facility]/HCC)- Primary Encounter for Medicare annual wellness exam Pulmonary emphysema, unspecified emphysema type ([facility]/HCC) COPD with exacerbation ([facility]) Stage 3a chronic kidney disease (HCC) ([facility]/HCC)- Primary Pulmonary emphysema, unspecified emphysema type ([facility]/HCC) Subconjunctival hemorrhage of left eye Pulmonary emphysema, unspecified emphysema type ([facility]/HCC)- Primary Stage 3a chronic kidney disease (HCC) ([facility]/HCC) Pulmonary emphysema, unspecified emphysema type (CMS/HCC)- Primary Stage 3a chronic kidney disease (HCC) (CMS/HCC) Impacted cerumen of both ears Impacted cerumen Screening for prostate cancer- Primary Special screening for malignant neoplasm of prostate Centrilobular emphysema ([facility]/HCC) Chronic respiratory failure with hypoxia ([facility]/HCC) Chronic kidney disease, stage 3a (HCC) ([facility]/HCC) Bronchiectasis, uncomplicated (CMS/HCC) Myalgia Unspecified myalgia and myositis Tremor Abnormal involuntary movements Impacted cerumen of both ears Impacted cerumen Pain due to onychomycosis of toenails of both feet- Primary Venous insufficiency Unspecified venous (peripheral) insufficiency documented in this encounter [facility] [id number] History of Present illness Narrative* Darlene De Souza NP - 01/06/2025 2:23 PM EDTAssociated Problem(s): Tremor No family hx of parkinson's Was told some time ago had essential tremors We discussed this, as well as other etiologies Will order some labs and refer to Neurology for evaluation Fu w me in 8 weeks * Darlene De Souza [...] inhaler 2 puffs, Every 4 hours PRN Inwsxolkhwr-Wundiedww-Bghyve (Trelegy Ellipta) 200-62.5-25 MCG/ACT aerosol powder 1 [...] CKD (chronic kidney disease), stage III (HCC) ([facility]) COPD (chronic obstructive pulmonary disease) ([facility]) GOLDEN (dyspnea on exertion) Dyslipidemia (high LDL; low HDL) ([facility]) Essential tremor Left hip pain [...] evaluation Fu w me in 8 weeks Relevant Orders TSH T4, [...] pneumonia and COVID vaccines documented in this encounterCooper County Memorial HospitalAlwtfznsst27-17-7635 Instructions* Patient Instructions* Darlene De Souza NP - 01/06/2025 1:20 PM EDT Check labs Refer to neurology documented in this encounterCooper County Memorial HospitalJmrfnbjidr38-30-6040 Evaluation note* Diagnosis Stage 3a chronic kidney disease (HCC) ([facility]/HCC)- Primary Encounter for Medicare annual wellness exam Pulmonary emphysema, unspecified emphysema type ([facility]/HCC) COPD with exacerbation ([facility]/HCC) Stage 3a chronic kidney disease (HCC) ([facility]/HCC)- Primary Pulmonary emphysema, unspecified emphysema type (CMS/HCC) [...] ears Impacted cerumen documented in this encounter [facility] HospitalOpabgxnizc13-90-4471 History of Present illness Narrative* Saul Pérez, ALIA - 10/31/2024 9:30 AM EST Patient: Martin [...] CKD (chronic kidney disease), stage III (HCC) ([facility]) COPD (chronic obstructive pulmonary disease) (CMS/HCC) GOLDEN [...] hours if needed for wheezing, Disp:, Rfl: Wssidgglikr-Ozxjvexus-Kaoqqz (Trelegy Ellipta) 200-62.5-25 MCG/ACT aerosol powder , [...] Partner Violence: Unknown (12/21/2023) Received from [facility], [facility] [place] [employer] Fear of [...] 10 Saul Pérez DPM documented in this encounterCooper County Memorial HospitalOeucchepew58-50-3997 Evaluation note* Diagnosis Stage 3a chronic kidney disease (HCC) ([facility]/HCC)- Primary Encounter for Medicare annual wellness exam Pulmonary emphysema, unspecified emphysema type ([facility]/HCC) COPD with exacerbation (CMS/HCC) Stage 3a chronic [...] venous (peripheral) insufficiency documented in this encounter [facility] HospitalPdhagatlug40-94-0931 History of Present illness Narrative* Linda Dempsey [...] 4 (four) hours if needed for wheezing Yuisrvtdgvb-Cobepmkrj-Vambfl (Trelegy Ellipta) 200-62.5-25 MCG/ACT aerosol powder Inhale [...] Do you have a medical power of cnc machinist?: No Objective : BP 120/86 Pulse 97 [...] on October 16, 2024 documented in this encounterCooper County Memorial HospitalSrmcruipbe14-27-0621 History of Present illness Narrative* Saul Pérez [...] CKD (chronic kidney disease), stage III (HCC) ([facility]) COPD (chronic obstructive pulmonary disease) ([facility]) GOLDEN (dyspnea on exertion) Dyslipidemia (high LDL; low HDL) ([facility]) Essential tremor Left hip pain Muscle cramping Neurogenic claudication due to lumbar spinal stenosis Pain in left lumbar region of back Personal history of nicotine dependence Shortness of breath on exertion Medications: Current Outpatient Medications: albuterol HFA 90 mcg/act inhaler, Inhale 2 puffs every 4 (four) hours if needed for wheezing, Disp:, Rfl: Cpiwirssusg-Yptankuvq-Jifpft (Trelegy Ellipta) 200-62.5-25 MCG/ACT aerosol powder , [...] Partner Violence: Unknown (12/21/2023) Received from [facility], [facility] [place] [employer] Fear of [...] 10 Saul Pérez DPM documented in this encounterCooper County Memorial HospitalNktohqhxnr77-49-6232 Evaluation note* Diagnosis Stage 3a chronic kidney disease (HCC) ([facility]/HCC)- Primary Encounter for Medicare annual wellness exam Pulmonary emphysema, unspecified emphysema type ([facility]/HCC) COPD with exacerbation ([facility]) Stage 3a chronic kidney disease (HCC) ([facility]/HCC)- Primary Pulmonary emphysema, unspecified emphysema type ([facility] [facility] Subconjunctival hemorrhage of left eye Pulmonary emphysema, unspecified emphysema type ([facility]/HCC)- Primary Stage 3a chronic kidney disease (HCC) ([facility]/HCC) Pulmonary emphysema, unspecified emphysema type ([facility]/HCC)- Primary Stage 3a chronic kidney disease (HCC) ([facility]/HCC) Impacted cerumen of both ears Impacted cerumen Pain due to onychomycosis of toenails of both feet- Primary Venous insufficiency Unspecified venous (peripheral) insufficiency documented in this encounter [id number] History of Present illness Narrative* Linda Dempsey NP - 07/08/2024 10:33 AM EDTAssociated Problem(s): Stage 3a chronic kidney disease (HCC) ([facility]/HCC) CKD 3, stable. Renal function stable. Avoid nephrotoxic agents. * Linda Dempsey NP - 07/08/2024 10:31 AM EDTAssociated Problem(s): COPD with emphysema ([facility]/HCC) Currently taking Trelegy daily Uses Albuterol PRN [...] Visit Stage 3a chronic kidney disease (HCC) ([facility]) CKD 3, stable. Renal function stable. Avoid nephrotoxic agents. COPD with emphysema ([facility]) - Primary Currently taking Trelegy [...] 6.5 % otic solution documented in this [facility]09-09-2024 Instructions* Patient Instructions* Linda Dempsey NP - 07/08/2024 10:00 AM EDT Keep up the good work! Call if you need anything! documented in this encounterCo[facility] [id number] NoteCardiology Clinic Note Chief Complaint: follow up [...] history of COPD (chronic obstructive pulmonary disease) ([facility]), Emphysema of lung ([facility]), and Hypertension. Surgical History He has a [...] will check lipid panel (more content not included)...[facility]09-08-2023 Note Patient here for 6 mo follow up abnormal stress test, dyspnea, and hypertension. Still denies chest pain. PCP manages his COPD/emphysema. He had CT chest and lab work a few weeks ago.[facility]03-29-2023 Note Cardiology Clinic Note Chief Complaint: new [...] a fixed inferior defect, which could be contracts representative of a prior infarct with scar versus artifact. I discussed with him options, including invasive coronary angiography for delineation of coronary anatomy and ruling out of critical lesions. Patient understands the procedure, and he defers any invasive procedures at this ti (more content not included)...[facility]08-24-2022 NotePROCEDURE: XR HIP LT 2 3V W [...] Electronically authenticated by: MARSHALL DAVISON Date: 2022-06-22 08:42[facility]08-19-2022 Evaluation note* Encounter Date Diagnosis Assessment Notes [...] if symptoms worsen or new symptoms occur. [facility] Other 05-10-2022 Evaluation note* Encounter Date Diagnosis [...] Follow-up with the patient in 3 months [facility] Other Evaluation note* Diagnosis Stage 3a chronic [...] Status Admit Date Peripheral neuropathy acute Alex 2024 2:28pm [facility] Work Phone: History general Narrative - Reported* [...] History TEETH Hospitalization History LUNG INFECTION 2013 [facility] Discharge instructionsAmbulatory Orders* Referral to Pulmonology Time Frame: 07/07/25, Location: None Selected [facility] Work Phone: Reason for referral (narrative)No reason for referral information availableMercy Health Work Phone: Summary Purpose Family History No Family History Records Found Relationship Condition Age at Onset Recorded Date/T timo daughter Unknown father Unknown Meningitis Unknown family member Unknown mother Unknown son Unknown Family history of mental disorder Unknown sister Family history of mental disorder Unknown Advance Directives No Advanced Directives Records Found Advance Directive Response Recorded Date/ Time Advance Directives No March 31 2:04pm Chief Complaint and Reason for Visit Chief Complaint Admit Date Follow up May 27, 2025 2:28 pm Reason for Visit Admit Date Peripheral neuropathy May 27, 2025 2: 28pm Chief Complaint Admit Date Follow up May 27, 2025 2:28 pm ESTABLISHED PATIENT July 07, 2025 1:01pm Reason for Visit Admit Date Essential tremor May 27, 2025 2:28 pm Peripheral neuropathy May 27, 2025 2: 28pm Vitamin B12 deficiency May 27, 2025 2 :28pm COPD with emphysema July 07, 2025 1:01pm Multiple pulmonary nodules June 1:01pm Syncope and collapse July 07, 2025 1:01pm Additional Source Comments (unrecognized sect ion and content) No Status Records FoundNo Status Records FoundNo Status Records FoundNo Status Records Found INFORMATION SOURCE (unrecogn ized section and content) DATE CREATED AUTHOR 04/19/2018 [facility] DATE CREATED AUTHOR AUTHOR'S ORGANIZ ATION 11/11/2022 [facility] DATE CREATED AUTHOR AUTHOR'S ORGANIZ ATION 07/08/2023 [facility] DATE CREATED AUTHOR AUTHOR'S ORGANIZ ATION 07/13/2025 [facility] dical Specialists EPIC REASON FOR VISIT (unrecogniz ed section and content) Reason Comments Toenail Care Non DM Nails Reason Comments Follow-up 3M0 Reason Comments Toenail Care Non dm nail care Reason Comments Tremors Specialty Diagnoses / Procedures Referred By Contac t Referred To Contact Neurology Diagnoses Tremor Procedures CA OFFICE/OUTPATIENT [facility] MDM 60 MINUTES Darlene De Souza NP [address] [place] [address] Phone: tel: fax: Arnulfo Kwok, [address] [place] [address] Phone: tel: fax: Referral ID Status Reason Start Date Expiration Date V isits Requested Visits Authorized [id number] Closed Consult and Treat 01/06/2025 07/05/2025 1 1 Reason Comments Follow-up Reason Comments Med Refill Reason Comments Toenail Care Reason Onset Date Comments Med Refill 05/07/2025 Care Teams (unrecognized sec tion and content) Batching Operator Relationship Specialty Start Date End Date Demetrius Dorado MD [address] [place] [address] PCP - General Family Medicine 06/05/24 Linda Dempsey NP [address] [place] [address] Nurse Practitioner Family Medicine 06/05/24 Batching Operator Relationship Specialty Start Date End Date Demetrius Dorado MD [address] [place] [address] PCP - General Family Medicine 06/05/24 Linda Dempsey NP [address] [place] [address] Nurse Practitioner Family Medicine 06/05/24 Batching Operator Relationship Specialty Start Date End Date Demetrius Dorado MD [address] [place] [address] PCP - General Family Medicine 06/05/24 Linda Dempsey NP [address] [place] [address] Nurse Practitioner Family Medicine 06/05/24 Batching Operator Relationship Specialty Start Date End Date Demetrius Dorado MD [address] [place] [address] PCP - General Family Medicine 06/05/24 Linda Dempsey NP [address] [place] [address] Nurse Practitioner Family Medicine 06/05/24 Batching Operator Relationship Specialty Start Date End Date Demetrius Dorado MD [address] [place] [address] PCP - General Family Medicine 06/05/24 Linda Dempsey NP [address] [place] [address] Nurse Practitioner Family Medicine 06/05/24 Batching Operator Relationship Specialty Start Date End Date Demetrius Dorado MD [address] [place] [address] PCP - General Family Medicine 06/05/24 Linda Dempsey NP [address] [place] [address] Nurse Practitioner Family Medicine 06/05/24 Batching Operator Relationship Specialty Start Date End Date Demetrius Dorado MD [address] [place] [address] PCP - General Family Medicine 06/05/24 Linda Dempsey NP [address] [place] [address] Nurse Practitioner Family Medicine 06/05/24 Batching Operator Relationship Specialty Start Date End Date Demetrius Dorado MD [address] [place] [address] PCP - General Family Medicine 06/05/24 Linda Dempsey NP [address] [place] [address] Nurse Practitioner Family Medicine 06/05/24 Batching Operator Relationship Specialty Start Date End Date Demetrius Dorado MD [address] [place] [address] PCP - General Family Medicine 06/05/24 Linda Dempsey NP [address] [place] [address] Nurse Practitioner Family Medicine 06/05/24 Batching Operator Relationship Specialty Start Date End Date Demetrius Dorado MD [address] [place] [address] PCP - General Family Medicine 06/05/24 Linda Dempsey NP [address] [place] [address] Nurse Practitioner Family Medicine 06/05/24 Batching Operator Relationship Specialty Start Date End Date Demetrius Dorado MD [address] [place] [address] PCP - General Family Medicine 06/05/24 Linda Dempsey NP [address] [place] [address] Nurse Practitioner Family Medicine 06/05/24 Batching Operator Relationship Specialty Start Date End Date Demetrius Dorado MD [address] [place] [address] PCP - General Family Medicine 06/05/24 Linda Dempsey NP [address] [place] [address] Nurse Practitioner Family Medicine 06/05/24 Batching Operator Relationship Specialty Start Date End Date Demetrius Dorado MD [address] [place] [address] PCP - General Family Medicine 06/05/24 Linda Dempsey NP [address] [place] [address] Nurse Practitioner Family Medicine 06/05/24 Batching Operator Relationship Specialty Start Date End Date Demetrius Dorado MD [address] [place] [address] PCP - General Family Medicine 06/05/24 Linda Dempsey NP [address] [place] [address] Nurse Practitioner Family Medicine 06/05/24 Batching Operator Relationship Specialty Start Date End Date Demetrius Dorado MD [address] [place] [address] PCP - General Family Medicine 06/05/24 Linda Dempsey NP [address] [place] [address] Nurse Practitioner Family Medicine 06/05/24 Batching Operator Relationship Specialty Start Date End Date Demetrius Dorado MD [address] [place] [address] PCP - General Family Medicine 06/05/24 Linda Dempsey NP [address] [place] [address] Nurse Practitioner Family Medicine 06/05/24 Batching Operator Relationship Specialty Start Date End Date Demetrius Dorado MD [address] [place] [address] PCP - General Family Medicine 06/05/24 Linda Dempsey NP [address] [place] [address] Nurse Practitioner Family Medicine 06/05/24 Team Status: Active Member Role Status Dates [facility] Primary Care Provider Activ e Team Status: Inactive Member Role Status Dates Alonso Adams DO Attending Provider Active Sta rt: April 21, 2025 End: April 21, 2025 [facility] Primary Care Provider Activ e Start: April 21, 2025 End: April 21, 2025 Team Status: Inactive Member Role Status Dates Katy Floyd APRN Attending Provider Active Start: May 27, 2025 End: May 27, 2025 [facility] Primary Care Provider Activ e Start: May 27, 2025 End: May 27, 2025 Batching Operator Relationship Specialty Start Date End Date Demetrius Dorado MD [address] [place] [address] PCP - General Family Medicine 06/05/24 Linda Dempsey NP [address] [place] [address] Nurse Practitioner Family Medicine 06/05/24 Team Status: Inactive Member Role Status Dates [facility] Primary Care Provider Activ e Start: July 07, 2025 End: July 07, 2025 Darlene De Souza Attending Provider Active Start: July 07, 2025 End: July 07, 2025 Batching Operator Relationship Specialty Start Date End Date Demetrius Dorado MD [address] [place] [address] PCP - General Family Medicine 06/05/24 Linda Dempsey NP [address] [place] [address] Nurse Practitioner Family Medicine 06/05/24 Batching Operator Relationship Specialty Start Date End Date Demetrius Dorado MD [address] [place] [address] PCP - General Family Medicine 06/05/24 Linda Dempsey NP [address] [place] [address] Nurse Practitioner Family Medicine 06/05/24 Goals (unrecognized section and content) Goals may [...] BE BASED ON THE PRIMARY CLINICAL RECORDS. [employer] provides no warranty or guarantee of the accuracy or completeness of information in this document.
[2025-07-14 09:12] LABS: Hematocrit 49.4 % (42.0-54.0); Hemoglobin 16.9 g/dL (14.0-18.0); Immature Granulocytes Abs Auto 0.02 10^3/uL (0.00-0.03); Immature Granulocytes Pct Auto 0.3 % (0.0-0.5); Lymphocytes Absolute Auto 1.4 10^3/uL (1.2-3.8); Mean Corpuscular HGB Conc 34.2 g/dL (29.9-35.2); Mean Corpuscular Hemoglobin 32.4 pg (25.9-34.0); Mean Corpuscular Volume 94.6 fL (80.0-94.0); Platelet Count 173 10^3/uL (150-450); Red Blood Count 5.22 10^6/uL (4.70-6.10); White Blood Count 7.9 10^3/uL (4.0-11.0)
[2025-07-14 09:32] LABS: Magnesium 1.8 mg/dL (1.8-2.4)
[2025-07-14 09:40] LABS: Alanine Aminotransferase 21 U/L (16-63); Albumin Globulin Ratio 1.0; Albumin Level 3.4 g/dL (3.4-5.0); Alkaline Phosphatase 80 U/L (46-116); Anion Gap 11.3; Aspartate Amino Transferase 16 U/L (15-37); Blood Urea Nitrogen 26.0 mg/dL (7.0-18.0); Calcium 10.0 mg/dL (8.5-10.1); Carbon Dioxide 28.5 mmol/L (21.0-32.0); Chloride 106 mmol/L (98-107); Estimated GFR (African America 53 (>=60 mL/min/1.73m^2); Estimated GFR (Non-African Ame 43 (>=60 mL/min/1.73m^2); Globulin 3.5 g/dL; Glucose 100 mg/dL (74-106); Potassium 4.8 mmol/L (3.5-5.1); Sodium 141 mmol/L (136-145); Total Protein 6.9 g/dL (6.4-8.2)
== END 2025-07-14 08:58 | disposition home or self-care (01) ==
LOC: LAB 08:57
PROVIDERS: PCP Nurse Practitioner; Visit Provider Nurse Practitioner
DX: R55 Syncope and collapse (principal)
CPT/HCPCS: 36415; 80053; 83735; 85025

== ENCOUNTER 2025-07-18 15:16 | Outpatient (OUT) | payer MEDICARE, OTHER, SELFPAY ==
--- OUTSIDE RECORDS SUMMARY | 2025-07-10 16:10 | XMS_ITS | Encounter Summary ---
Author Organization [facility] Address [address] [place] [address] Care Team Providers Care Manager Investment Banking Name Role Phone Demetrius Dorado MD Primary Care Provider [phone] Zainab Dempsey NP Unavailable [phone] Reason for Visit * Reason Comments Toenail Care Encounter Details Date Type Department Care Team (Latest Contact Info) Description 07/10/2025 4:10 PM EDT Procedure Visit [facility] [address] [facility] [address] [place] [address] Saul Pérez DPM [address] [facility] [address] [place] [address] Pain due to onychomycosis of toenails of both feet (Primary Dx); Venous insufficiency Social History Tobacco Use Types Packs/Day Years [...] Sign Reading Time Taken Comments Blood Pressure - - Pulse - - Temperature - - Respiratory Rate 16 07/10/2025 4:03 PM EDT Oxygen Saturation - - Inhaled Oxygen Concentration - - Weight 95.7 kg (211 lb) 07/10/2025 4:03 PM EDT Height 182.9 cm (6') 07/10/2025 4:03 PM EDT Body Mass Index 28.62 07/10/2025 4:03 PM EDT documented in this encounter Progress Notes * Saul Pérez, ALIA - 07/10/2025 4:10 PM EDT Patient: Spencer Arroyo : 1950 PCP: Demetrius Dorado MD SUBJECTIVE [...] HTN CKD (chronic kidney disease), stage III ([facility]) COPD (chronic obstructive pulmonary disease) ([facility]) GOLDEN (dyspnea on exertion) Dyslipidemia (high LDL; [...] of breath, Disp: 18 g, Rfl: 1 cholecalciferol (Vitamin D-3) 125 MCG (5000 UT) capsule, Take 1 capsule (125 mcg) by mouth Daily, Disp: 30 capsule, Rfl: 1 Oefxhmusvsn-Gdakiywft-Zqcuvc (Trelegy Ellipta) 200-62.5-25 MCG/ACT aerosol powder , [...] Partner Violence: Unknown (12/21/2023) Received from [facility] Safety & Environment Fear of Current or [...] Saul Pérez DPM documented in this encounter Plan of Treatment Upcoming Encounters Date Type Department Care Team ([facility] st Contact Info) Description 10/02/2025 4:10 PM EST Procedure Visit [facility] [address] [facility] [address] [place] [address] Saul Pérez DPM [address] [facility] [address] [place] [address] documented as of this encounter Visit Diagnoses Diagnosis Pain due to onychomycosis of toenails of both feet- Primary Venous insufficiency Unspecified venous (peripheral) insufficiency documented in this encounter Additional Health Concerns Assessment Noted Time PHQ-9 Depression Total Score: 0 10/16/20 9:00 AM EST documented as of this encounter Care Teams Manager Investment Banking Relationship Specialty Start Date End Date Demetrius Dorado MD [address] [place] [address] PCP - General Family Medicine 06/05/24 Zainab Dempsey NP [address] [place] [address] Nurse Practitioner Family Medicine 06/05/24 documented as of this encounter
--- NOTE | 2025-07-18 | CT_ITS ---
The [address] [address] Patient Name: MARTIN DAWN MRN: [id number] date: 1950 Sex: M Assigned Patient Location: CT Current Patient Location: CT Accession/Order Number: [id number] Exam Date: 07/18/2025 15:30 Report Date: 07/18/2025 17:21 At the request of: MISTY DAMON NP Procedure: CT chest w con CT Chest without contrast TECHNIQUE: Axial imaging with 2-D reconstruction. The CT exam was performed using one or more the following dose reduction techniques: Automated exposure control, adjustment of the MA and/or Kv according to patient size, or use of the iterative reconstruction technique. History: Pulmonary nodules. History of emphysema COMPARISON: 04/04/2025 THYROID: Unremarkable TRACHEA AND BRONCHI: Patent ESOPHAGUS: Unremarkable. HEART: Within normal limits PERICARDIAL EFFUSION: None CORONARY ARTERY CALCIFICATION: Minor MEDIASTINUM: Calcified subcarinal lymph nodes. Mildly prominent mediastinal lymph nodes. Unchanged. PULMONARY JOSE: No hilar mass or adenopathy is seen. THORACIC AORTA atherosclerosis LUNG NODULE tiny nodular densities redemonstrated. No new or enlarging lung nodules. LUNGS: Medial right lower lobe consolidation with suspected bronchiectasis. Likely scarring. PLEURAL EFFUSION: None PNEUMOTHORAX: No pneumothorax seen. CHEST WALL: Mild gynecomastia AXILLA:Unremarkable BONY STRUCTURES degenerative change UPPER ABDOMEN: Similar hepatic cyst. CT/CT chest w con IMPRESSION: Marked emphysematous changes. Regions of likely scarring in the medial portion of the right middle lobe with bronchiectasis. Stable tiny nodularity. No new or enlarging nodules. Impression dictated by: Tonny Aguilar M.D. 07/18/2025 5:21 PM Dictation Location: [place] [address] Electronically authenticated by: [id number] Y Date: 07/18/2025 17:21
--- OUTSIDE RECORDS SUMMARY | 2025-07-18 15:18 | XMS_ITS | Encounter Summary ---
Author Organization [facility] Address [address] [place] [address] Care Team Providers Care Radio Repairer Domestic Name Role Phone Demetrius Dorado MD Primary Care Provider [phone] Zainab Dempsey NP Unavailable Encounter Details Date Type Department Care Team (Late Contact Info) Description 07/10/2025 Bamboo flowsheet [facility] [address] [place] [address] Saul Pérez DPM [address] [address] Social History Tobacco Use Types Packs/Day Years [...] [facility] [address] [place] [address] Salu Péerz DPM [address] [address] documented as of this encounter Visit Diagnoses Not on filedocumented in this encounter Additional Health Concerns Assessment Noted Time PHQ-9 Depression Total Score: 0 10/16/20 9:00 AM EST documented as of this encounter Care Teams Radio Repairer Domestic Relationship Specialty Start Date End Date Demetrius Dorado MD [address] [place] [address] PCP - General Family Medicine 06/05/24 Zainab Dempsey NP [address] [place] [address] Nurse Practitioner Family Medicine 06/05/24 documented as of this encounter
--- OUTSIDE RECORDS SUMMARY | 2025-07-18 15:18 | XMS_ITS | Encounter Summary ---
Author Organization [facility] Address [address] [place] [address] Care Team Providers Care Senior Environmental Consultant Name Role Phone Demetrius Dorado MD Primary Care Provider [phone] Zainab Dempsey TOUR AGENT Unavailable [phone] Encounter Details Date Type Department Care Team [...] EST Procedure Visit [facility] [address] [facility] 120 [place] [address] Saul Pérez DPM [address] [facility] 5 [place] [address] documented as of this encounter Visit Diagnoses Not on filedocumented in this encounter Additional Health Concerns Assessment Noted Time PHQ-9 Depression Total Score: 0 10/16/20 24 9:00 AM EST documented as of this encounter Care Teams Senior Environmental Consultant Relationship Specialty Start Date End Date Demetrius Dorado MD [address] [facility] [place] [address] PCP - General Family Medicine 06/05/24 Zainab Dempsey NP [address] [place] [address] Nurse Practitioner Family Medicine 06/05/24 documented as of this encounter
--- OUTSIDE RECORDS SUMMARY | 2025-07-18 15:18 | XMS_ITS | Clinical Summary ---
Author Organization [facility] Address [address] [place] [address] Care Team Providers Care Clinical Education Assistant Name Role Phone Shaikh MOIZ Knight Primary Care Provider [phone] Allergies No known active allergies Medications albuterol [...] topic Insurance [employer] Care Teams Clinical Education Assistant Relationship Specialty Start Date End Date Shaikh Knight MD PCP - General Family Medicine 01/24/23
--- OUTSIDE RECORDS SUMMARY | 2025-07-18 15:18 | XMS_ITS | Encounter Summary ---
Author Organization [facility] Address [address] [place] [address] Care Team Providers Care Charge Manager Name Role Phone Demetrius Dorado MD Primary Care Provider [phone] Zainab Dempsey NP Unavailable Encounter Details Date Type Department Care Team (Late Contact Info) Description 06/07/2024 Clinisync Result Encounter [facility] External Department Unsolicited Shaikh Knight MD [address] [facility] [place] [address] Social History Tobacco Use Types Packs/Day Years [...] EST Procedure Visit [facility] [address] [facility] 120 [place] [address] Saul Pérez DPM [address] [facility] [address] [place] [address] documented as of this encounter Procedures Procedure Name Priority Date/Time Associated Diagnosis Comments RT PULMONARY FUNCTION TEST 06/07/2024 9:01 AM EDT documented in this encounter Results * RT PULMONARY FUNCTION TEST (06/07/2024 9:01 AM EDT) Anatomical Region Laterality Modality Other 06/07/2024 9:01 AM EDT Narrative 06/18/2024 7:35 AM EDT The [place] [id number] Respiratory Report Signed Patient: MARTIN ARROYO MR#: [id number] : 1950 Acct:[id number] Age/Sex: 74 / M ADM Date: 06/07/24 Loc: CARD Attending Dr: Shaikh Antonia Sam Ordering Physician: Shaikh Cecy Knight Date of Service: 06/07/24 Procedure(s): RT pulmonary function test Accession Number(s): [id number] cc: [facility] Test Date: 2024-06-07 Pat Name: MARTIN ARROYO Department: Room: - Gender: Male Sales Clerk Food: Erin Chowdary RRT : 1950 Requested By: [id number] Order Number: [id number] Reading MD: Chandler Mckee Interpretive Statements Pulmonary function testing was completed according to ATS criteria. Findings were considered accurate and reproducible. Both pre- and post-bronchodilator values utilized for spirometry. Spirometry (based on pre-bronchodilator values): -FEV1/FVC: Reduced @ 47% -FEV1: Moderately-severe reduction @ 51% -FVC: Reduced @ 79% -NRQ18-06%: Reduced @ 27% -There is no significant [...] Signed By: 06/18/24 0735 DD/ 0 TD/TT: Respiratory Services Manager: Procedure Note Radiology, Radiologist, - 06/18/2024 [place] [address] Respiratory Report Signed Patient: MARTIN ARROYO RMR#: [id number] : 1950cct:[id number] Age/Sex: 74 / MADM Date: 06/07/24 Loc: CARD Attending Dr: Shaikh Antonia Sam Ordering Physician: Shaikh Cecy Knight Date of Service: 06/07/24 Procedure(s): RT pulmonary function test Accession Number(s): [id number] cc: The [facility] Test Date: 2024-06-07 Pat Name: MARTIN ARROYO Department: Room: - Gender: Male Sales Clerk Food: Erin Chowdary RRT : 1950 Requested By: [id number] Order Number: [id number] Reading MD: Chandler Mckee Interpretive Statements Pulmonary function testing was completed according to ATS criteria.Findings were considered accurate and reproducible. Both pre- andpost-bronchodilator values utilized for spirometry. Spirometry (based on pre-bronchodilator values): -FEV1/FVC: Reduced @ 47% -FEV1: Moderately-severe reduction @ 51% -FVC: Reduced @ 79% -IGO57-42%: Reduced @ 27% -There is no significant [...] D.O. Signed By:06/18/24 0735 DD/ 0 TD/TT: Respiratory Services Manager: us Shaikh Antonia [facility] Final Result documented in this encounter Visit Diagnoses Not on filedocumented in this encounter Additional Health Concerns Assessment Noted Time PHQ-9 Depression Total Score: 0 10/10/20 23 11:00 AM EST documented as of this encounter Care Teams Charge Manager Relationship Specialty Start Date End Date Demetrius Dorado MD [address] [place] [address] PCP - General Family Medicine 06/05/24 Zainab Dempsey NP [address] [place] [address] Nurse Practitioner Family Medicine 06/05/24 documented as of this encounter
--- OUTSIDE RECORDS SUMMARY | 2025-07-18 15:18 | XMS_ITS | Encounter Summary ---
Author Organization [facility] Address [address] [place] [address] Care Team Providers Care Fermenter Operator Name Role Phone Demetrius Dorado MD Primary Care Provider [phone] Zainab Gerard NP Unavailable [phone] Encounter Details Date Type Department Care Team [...] EST Procedure Visit [facility] [address] [facility] 120 [place] [address] Saul Pérez DPM [address] [facility] 5 [place] [address] documented as of this encounter Procedures Procedure Name Priority Date/Time Associated Diagnosis Comments CT LUNG SCREENING LOW DOSE 10/14/2024 11:30 AM EST documented in this encounter Results * CT LUNG SCREENING LOW DOSE (10/14/2024 11:30 AM EST) Anatomical Region Laterality Modality Other 10/14/2024 11:3 0 AM EST Narrative 10/14/2024 11:32 AM EST The [address] [address] [address] Scan Report Signed Patient: MARTIN ARROYO MR#: [id number] : 1950 Acct:[id number] Age/Sex: 74 / M ADM Date: 10/11/24 Loc: CT Attending Dr: Chandler Christensen D.O. Ordering Physician: Chandler Christensen D.O. Date of Service: 10/11/24 Procedure(s): CT lung screening low-dose Accession Number(s): [id number] cc: ZAINAB GERARD [place] [address] Patient Name: MARTIN ARROYO MRN: [facility]:[id number] date: 1950 Sex: M Assigned Patient Location: CT Current Patient Location: Accession/Order Number: [id number] Exam Date: 10/11/2024 10:05 Report Date: 10/14/2024 [...] Signed By: 10/14/24 1132 DD/ 1130 TD/TT: General Assembler: Procedure Note Radiology, Radiologist, MD - 10/14/2024 [place] [address] CT Scan Report Signed Patient: MARTIN ARROYO RMR#: [id number] : 1950cct:[id number] Age/Sex: 74 / MADM Date: 10/11/24 Loc: CT Attending Dr: Chandler Christensen D.O. Ordering Physician: Chandler Christensen D.O. Date of Service: 10/11/24 Procedure(s): CT lung screening low-dose Accession Number(s): [id number] cc: ZAINAB GERARD The [address] [address] Patient Name: MARTIN ARROYO MRN: [id number] date: 1950 Sex: M Assigned Patient Location: CT Current Patient Location: Accession/Order Number: [id number] Exam Date: 10/11/2024 10:05 Report Date: 10/14/2024 [...] M.D. Signed By:10/14/24 1132 DD/ 1130 TD/TT: General Assembler: Generic External Data Provider [facility] Final Result documented in this encounter Visit Diagnoses Not on filedocumented in this encounter Additional Health Concerns Assessment Noted Time PHQ-9 Depression Total Score: 0 10/10/20 23 11:00 AM EST documented as of this encounter Care Teams Fermenter Operator Relationship Specialty Start Date End Date Demetrius Dorado MD [address] [place] [address] PCP - General Family Medicine 06/05/24 Zainab Gerard NP [address] [place] [address] Nurse Practitioner Family Medicine 06/05/24 documented as of this encounter
--- OUTSIDE RECORDS SUMMARY | 2025-07-18 15:18 | XMS_ITS | Encounter Summary ---
Author Organization [facility] Address [address] [place] [address] Care Team Providers Care Threading Machine Tender Name Role Phone Demetrius Dorado MD Primary Care Provider [phone] Zainab Dempsey NP Unavailable Encounter Details Date Type Department Care Team (Late Contact Info) Description 05/20/2025 Abstract [facility] [place] [facility] [address] [place] [address] Darlene De Souza NP [address] [place] [address] Social History Tobacco Use Types Packs/Day Years [...] EST Procedure Visit [facility] [address] [facility] [address] [place] [id number] Saul Pérez DPAdan [address] [facility] 5 [place] [address] documented as of this encounter Visit Diagnoses Not on filedocumented in this encounter Additional Health Concerns Assessment Noted Time PHQ-9 Depression Total Score: 0 10/16/20 9:00 AM EST documented as of this encounter Care Teams Threading Machine Tender Relationship Specialty Start Date End Date Demetrius Dorado MD [address] [place] [address] PCP - General Family Medicine 06/05/24 Zainab Dempsey NP [address] [place] [address] Nurse Practitioner Family Medicine 06/05/24 documented as of this encounter
--- OUTSIDE RECORDS SUMMARY | 2025-07-18 15:18 | XMS_ITS | Clinical Summary ---
Author Organization [facility] Address [address] [place] [address] Care Team Providers Care Scuba Instructor Name Role Phone Demetrius Dorado MD Primary Care Provider [phone] Zainab Dempsey NP Unavailable [phone] Allergies No known active allergies Medications Fluticasone-Umec [...] [facility] [address] [place] [address] Saul Pérez, DPM Pain due to onychomycosis of toenails of both feet (Primary Dx); Venous insufficiency 07/10/2025 Bamboo flowsheet [facility] [address] [facility] [address] [place] [phone] Saul Pérez DPM 07/10/2025 Travel 06/18/2025 Clinisync Result Encounter [facility] External Department Unsolicited Darlene De Souza, BLANQUITA 06/05/2025 Refill [facility] [address] [place] [address] Darlene De Souza, BLANQUITA Vitamin D deficiency 05/20/2025 Abstract [facility] [address] [place] [address] Darlene De Souza NP 05/13/2025 Refill [facility] [address] [place] [address] Darlene De Souza, BLANQUITA Pulmonary emphysema, unspecified emphysema type (HCC) 05/07/2025 Refill [facility] [address] [place] [address] Darlene De Souza, BLANQUITA Essential tremor; Vitamin D deficiency 04/17/2025 4:00 PM EDT Procedure Visit [facility] [address] [facility] [address] [place] [id number] Saul Pérez DPM Pain due to onychomycosis of toenails of both feet (Primary Dx); Venous insufficiency 04/17/2025 Bamboo flowsheet [facility] [address] [facility] [address] [place] [id number] Saul Pérez DPM 04/17/2025 Travel from Last [...] Upcoming Encounters Date Type Department Care Team ([facility] st Contact Info) Description 10/02/2025 4:10 PM EST Procedure Visit [facility] [address] [facility] 120 [place] [address] Saul Pérez DPM [address] [facility] [address] [place] [address] Health Maintenance Due Date Last Done Comments [...] VITAMIN B12 1055 232 - 1245 pg/mL [facility] Comment: Performed at: - Lab[address] [id number] Ivory Carver: Sin Goss PhD, Phone: [phone] 06/18/2025 11:1 2 AM EDT 06/18/2025 11:14 AM EDT Narrative [facility] - 06/19/2025 4:07 AM EDT us Generic External Data Provider LAB BLOOD ORDERAB LES Final Result [facility] VITAMIN D 25 [place] (06/18/2025 11:12 AM EDT) VITAMIN D 53.1 ng/mL [facility] Comment: <20 ng/mL Vit D deficient 20-<30 ng/mL Vit D insufficient 30-100 ng/mL Vit D sufficient >100 ng/mL Potential Toxicity 06/18/2025 11:1 2 AM EDT 06/18/2025 11:14 AM EDT Narrative [facility] - 06/18/2025 1:35 PM EDT us Darlene Matiascoreyanup METAL BUGGY OPERATOR [facility] Final Result [facility] TB from Last 3 Months Insurance [employer] [place] Care Teams Scuba Instructor Relationship Specialty Start Date End Date Deemtrius Dorado MD [address] [place] [address] PCP - General Family Medicine 06/05/24 Zainab Dempsey NP [address] [place] [address] Nurse Practitioner Family Medicine 06/05/24
--- OUTSIDE RECORDS SUMMARY | 2025-07-18 15:21 | XMS_ITS | CCD ---
Author Organization [facility] Care Team Providers Care Interventional Technologist Name Role Phone PHYSICIAN, DEFAULT Unavailable Unavailable [...] Unavailable Ave ROCKWELL, Demetrius Primary Care Provider [phone] Ke JUARES, Linda Unavailable Ke LEAD SETTER, Linda Unavailable Alonso Adams DO Attending Provider [facility] Primary Care Provide r Katy Floyd APRN Attending Provider Darlene De Souza Attending Provider Demetrius Dorado MD Primary Care Provider Ke LEAD SETTER, Linda Unavailable DARLENE DE SOUZA Attending Unavailable SAUL PÉREZ Attending Unavailable ALONSO ADAMS Attending Unavailable DARLENE DE SOUZA Referring Unavailable DARLENE DE SOUZA Attending Unavailable SAUL PÉREZ Attending Unavailable SAUL PÉREZ Attending Unavailable SAUL PÉREZ Attending Unavailable LINDA DEMPSEY Attending Unavailabl e SAUL PÉREZ Attending Unavailable Medications Current Medications Medication Drug Class(es) Dates Sig (Normalized) Sig (Original) [id number] 200 actuat albuterol 0.09 mg/actuat metered dose [...] oral tablet (1 source) alpha-Adrenergic Agonist, Uncompetitive V-vcyyfv-J-aspartate Receptor Antagonist, Sigma-1 Agonist Capmist DM [id number] [...] Test Name Value Interpretation Reference Range Facility [facility] VITAMIN D 25 OHon 2024 VITAMIN D 53.1 ng/mL [facility] Comment on above: <20 ng/mL Vit D defi cient 20-<30 ng/mL Vit D insufficient 30-100 ng/mL Vit D sufficient >100 ng/mL Potential Toxicity [facility] e ALL FOLIC ACIDon 03-25-2025 FOLATE 16.6 ng/mL 8.60 - 58.90 ng/mL [facility] e ALL CBC WITH AUTO DIFFon BASOPHILS ABSOLUTE AUTO 0.1 [facility] Basophils/100 WBC (Bld) 0.7 % 0.2 - 2.0 % [facility] Eosinophils/100 WBC (Bld) 1.7 % 0.9 - 7.0 % [facility] Erythrocyte distribution width (RBC) [Ratio] 13.2 % 11.0 - 15.0 % [facility] Hematocrit (Bld) [Volume fraction] 50.2 % 42.0 - 54.0 % [facility] e Hemoglobin (Bld) [Mass/Vol] 17.1 g/dL 14.0 - 18.0 g/dL [facility] IMMATURE GRANULOCYTES ABS AUTO 0.02 [facility] Immature granulocytes/100 WBC (Bld) 0.3 % 0.0 - 0.5 % [facility] Interpretation and review of laboratory results Abnormal [facility] re LYMPHOCYTES ABSOLUTE AUTO 1.1 Low [facility] Lymphocytes/100 WBC (Bld) 15.3 % Low 20.5 - 60.0 % [facility] MCH (RBC) [Entitic mass] 32.1 pg 25.9 - 34.0 pg [facility] MCHC (RBC) [Mass/Vol] 34.1 g/dL 29.9 [...] [facility] e CT CHEST WO CONon 01-08-2025 [place] [address] CT Scan Report Signed Patient: MARTIN DAWN MR#: [id number] : 1950 Acct:[id number] Age/Sex: 74 / M ADM Date: 01/08/25 Loc: CT Attending Dr: Darlene Christensen D.O. Ordering Physician: Darlene Christensen D.O. Date of Service: 01/08/25 Procedure(s): CT chest wo con Accession Number(s): [id number] cc: LINDA DEMPSEY [place] [id number] Patient Name: MARTIN DAWN MRN: [facility]:[id number] date: 1950 Sex: M Assigned Patient Location: CT Current Patient Location: CT Accession/Order Number: [id number] Exam Date: 01/08/2025 18:00 Report Date: 01/08/2025 [...] Tonny Aguilar M.D.01/08/2025 6:07 PM Dictation Location: [place] [address] Electronically authenticated by: [id number] Y Date: 01/08/2025 18:07 Dictated By: Tonny Aguilar D.O. Signed By: 01/08/251809 DD/ 06 TD/TT: Equipment Operator Wage Hand: [facility] Radiology, Radiologist, MD - 01/08/2025 [place] [address] CT Scan Report Signed Patient: MARTIN DAWN MR#: [id number] : 1950 Acct:[id number] Age/Sex: 74 / M ADM Date: 01/08/25 Loc: CT Attending Dr: Darlene Christensen D.O. Ordering Physician: Darlene Christensen D.O. Date of Service: 01/08/25 Procedure(s): CT chest wo con Accession Number(s): [id number] cc: LINDA DEMPSEY [address] [id number] Patient Name: MARTIN DAWN MRN: [facility]:[id number] date: 1950 Sex: M Assigned Patient Location: CT Current Patient Location: CT Accession/Order Number: [id number] Exam Date: 01/08/2025 18:00 Report Date: 01/08/2025 [...] Tonny Aguilar M.D.01/08/2025 6:07 PM Dictation Location: [place] Electronically authenticated by: [id number] Y Date: 01/08/2025 18:07 Dictated By: Tonny Aguilar D.O. Signed By: 01/08/251809 DD/ 06 TD/TT: Equipment Operator Wage Hand: [facility] Radiology Study observation (narrative) [facility] CT CHEST WO CONOrdered By: Yang fischeriologguera Radiology on 01-08-2025 [facility] [employer] Work Phone: Office Visiton 07-07-2023 Follow-up visit [id number] DawnMartin 1950 M [facility] Provider Department [facility] Family History Problem Relation Age of Onset No Known Problems Mother No Known Problems Father Family Status - Relation Status Age at Mother Father Level of Service:06749 ME OFFICE/OUTPATIENT ESTABLISHED LOW MDM 20-29 MIN Normal [facility] Office Visiton 01-25-2023 Follow-up visit [id number] Martin Dawn 1950 [facility] Provider Department [facility]20[facility] No family history on file Level of Service:07341 ME OFFICE/OUTPATIENT NEW MODERATE MDM 45-59 MINUTES Reason for Visit and Comments: New Patient [632] - Est care- Ongoing SOB and results of heart test Normal [facility] CP ECHO W CONTRASTon 023 CP ECHO W CONTRAST Patient: CRISTI DAWN Exam Date: 11/10/2022 : 1950 Gender:M Ordering : SHAIKH Nathanael CONTRERAS . Admission #: [id number] Family : Order #: [id number] CLICK HERE TO VIEW EXAM ECHOCARDIOGRAM REPORT [...] Paz M.D. on 11/11/2022 at 13:41 Normal [facility] STRESS/REST MULTIon 11-10 ME STRESS/REST MULTI Patient: MARTIN DAWN Exam Date: 11/10/2022 : 1950 Gender:M Ordering : SHAIKH Nathanael CONTRERAS . Admission #: [id number] Family : Order #: [id number] CLICK HERE TO VIEW EXAM RADIOLOGY REPORT PROCEDURE: RADIONUCLIDE IMAGING STRESS/REST MULTI COMPARISON: ME STRESS/REST MULTI, 12/07/2017. INDICATIONS: Dyspnea on exertion [...] M.D. on 11/10/2022 at 15:21 Normal [facility] BNPon 11-02-2022 Natriuretic peptide B (Bld) [Mass/Vol] 122.0 pg/mL Normal <=900.0 [facility] Comment on above: Performed By: #### C MP #### [facility] [address] [place] [address] Dr. Radha Gomez CBC AUTO DIFFon 11-02-2022 BASO # 0.1 103/ul Normal 0.0-0.1 [facility] Comment on above: Performed By: #### C MP #### [facility] [address] [place] [address] Dr. Radha Gmoez Basophils/100 WBC (Bld) 0.8 % Normal 0.2-2.0 [facility] Comment on above: Performed By: #### C MP #### [facility] [address] [place] [address] Dr. Radha Gomez EO # 0.1 103/ul Normal 0.0-0.7 [facility] Comment on above: Performed By: #### C MP #### [facility] [address] [place] [address] Dr. Radha Gomez Eosinophils/100 WBC (Bld) 1.9 % Normal 0.9-7.0 [facility] Comment on above: Performed By: #### C MP #### [facility] [address] [place] [address] Dr. Radha Gomez Erythrocyte distribution width (RBC) [Ratio] 12.7 % Normal 11.0-15.0 [facility] Comment on above: Performed By: #### C MP #### [facility] [address] [place] [address] [address] Radha Gomez Hematocrit (Bld) [Volume fraction] 49.8 % Normal 42.0-54.0 [facility] Comment on above: Performed By: #### C MP #### [facility] [address] [place] [address] [address] Radha Gomez Hemoglobin (Bld) [Mass/Vol] 16.9 g/dL Normal 14.0-18.0 [facility] Comment on above: Performed By: #### C MP #### [facility] [address] [place] [address] Dr. Radha Gomez IG # 0.02 10e3/ul Normal 0.00-0.03 [facility] Comment on above: Performed By: #### C MP #### [facility] [address] [place] [address] Dr. Radha Gomez IG % 0.3 % Normal 0.0-0.5 [facility] Comment on above: Performed By: #### C MP #### [facility] [address] [place] [address] Dr. Radha Gomez LYMPH # 1.4 103/ul Normal 1.2-3.8 [facility] Comment on above: Performed By: #### C MP #### [facility] [address] [place] [address] Dr. Radha Gomez Lymphocytes/100 WBC (Bld) 19.3 % Critically low 20.5-60.0 [facility] Comment on above: Performed By: #### C MP #### [facility] [address] [place] [address] [address] Radha Gomez MANUAL DIFF REQ NO Normal [facility] Comment on above: Performed By: #### C MP #### [facility] [address] [place] [address] Dr. Radha Gomez MCH (RBC) [Entitic mass] 31.9 pg Normal 25.9-34.0 [facility] Comment on above: Performed By: #### C MP #### [facility] [address] [place] [address] [address] Radha Gomez MCHC (RBC) [Mass/Vol] 33.9 g/dL Normal 29.9-35.2 [facility] Comment on above: Performed By: #### C MP #### [facility] [address] [place] [address] [address] Radha Gomez MCV (RBC) [Entitic vol] 94.0 fL Normal 80.0-94.0 [facility] Comment on above: Performed By: #### C MP #### [facility] [address] [place] [address] Dr. Radha Gomez MONO # 0.7 103/ul Normal 0.3-0.8 [facility] Comment on above: Performed By: #### C MP #### [facility] [address] [place] [address] Dr. Radha Gomez Monocytes/100 WBC (Bld) 9.5 % Normal 1.7-12.0 [facility] Comment on above: Performed By: #### C MP #### [facility] [address] [place] [address] Dr. Radha Gomez NEUT # 5.0 103/ul Normal 1.4-6.5 [facility] Comment on above: Performed By: #### C MP #### [facility] [address] [place] [address] Dr. Radha Gomez Neutrophils/100 WBC (Bld) 68.2 % Normal 43.0-75.0 [facility] Comment on above: Performed By: #### C MP #### [facility] [address] [place] [address] Dr. Radha Gomez Platelet mean volume (Bld) [Entitic vol] 9.0 fL Critically low 9.5-13.5 [facility] Comment on above: Performed By: #### C MP #### [facility] [address] [place] [address] Dr. Radha Gomez PLT 183 103/ul Normal 150-450 [facility] Comment on above: Performed By: #### C MP #### [facility] [address] [place] [address] Dr. Radha Gomez RBC 5.30 106/ul Normal 4.70-6.10 [facility] Comment on above: Performed By: #### C MP #### [facility] [address] [place] [address] [address] Radha Gomez WBC 7.3 103/ul Normal 4.0-11.0 [facility] Comment on above: Performed By: #### C MP #### [facility] [address] [place] [address] Dr. Radha Gomez PROF CHEM 8 (BAS METB)on Anion gap [Moles/Vol] 11.7 mmol/L Normal [facility] Comment on above: Performed By: #### C MP #### [facility] [address] [place] [address] Dr. Radha Gomez Calcium [Mass/Vol] 9.5 mg/dL Normal 8.5-10.1 [facility] Comment on above: Performed By: #### C MP #### [facility] [address] [place] [address] Dr. Radha Gomez Chloride [Moles/Vol] 105 mmol/L Normal 98-107 [facility] Comment on above: Performed By: #### C MP #### [facility] [address] [place] [address] Dr. Radha Gomez CO2 [Moles/Vol] 27.5 mmol/L Normal 21.0-32.[address] [facility] Comment on above: Performed By: #### C MP #### [facility] [address] [place] [address] Dr. Radha Gomez Creatinine [Mass/Vol] 1.35 mg/dL Critically high 0.70-1.30 [facility] Comment on above: Performed By: #### C MP #### [facility] [address] [place] [address] Dr. Radha Gomez EGFR-AF ITALIAN >60 Normal >=[address] [facility] Comment on above: Performed By: #### C MP #### [facility] [address] [place] [address] [address] Radha Gomez EGFR-NON AF ITALIAN 52 mL/min/1.73m2 Critically low >=60 [facility] Comment on above: Performed By: #### C MP #### [facility] [address] [place] [address] [address] Radha Gomez Glucose [Mass/Vol] 88 mg/dL Normal 74-106 [facility] Comment on above: Performed By: #### C MP #### [facility] [address] [place] [address] [address] Radha Gomez Potassium [Moles/Vol] 4.2 mmol/L Normal 3.5-5.1 [facility] Comment on above: Performed By: #### C MP #### [facility] [address] [place] [address] [address] Radha Gomez Sodium [Moles/Vol] 140 mmol/L Normal 136-145 [facility] Comment on above: Performed By: #### C MP #### [facility] [address] [place] [address] [address] Radha Gomez Urea nitrogen [Mass/Vol] 19.0 mg/dL Critically high 7.0-18.0 [facility] Comment on above: Performed By: #### C MP #### [facility] [address] [place] [address] [address] Radha Gomez Urea nitrogen/Creatinine [Mass ratio] 14.1 mg/mg Normal [facility] Comment on above: Performed By: #### C MP #### [facility] [address] [place] [address] [address] Radha Gomez XR CHEST 2 Von [...] by: YANDY PÉREZ Date: 2022-11-02 08:42 Normal [facility] XR LSPINE 2_3 VIEWSon 2021 XR LSPINE [...] by: YANDY MALONEY Date: 2022-06-21 15:47 Normal [facility] CT CHEST WO CONon 02-22-2022 [...] YANDY MALONEY Date: 2022-02-22 13:27 Normal [facility] CBC AUTO DIFFon 12-10-2021 BASO # 0.1 103/ul Normal 0.0-0.1 [facility] Comment on above: Performed By: #### C BC #### [facility] [address] [place] [address] Dr. Radha Gomez Basophils/100 WBC (Bld) 0.6 % Normal 0.2-2.0 [facility] Comment on above: Performed By: #### C BC #### [facility] [address] [place] [address] Dr. Radha Gomez EO # 0.3 103/ul Normal 0.0-0.7 [facility] Comment on above: Performed By: #### C BC #### [facility] [address] [place] [address] Dr. Radha Gomez Eosinophils/100 WBC (Bld) 3.1 % Normal 0.9-7.0 [facility] Comment on above: Performed By: #### C BC #### [facility] [address] [place] [address] Dr. Radha Gomez Erythrocyte distribution width (RBC) [Ratio] 12.8 % Normal 11.0-15.0 [facility] Comment on above: Performed By: #### C BC #### [facility] [address] [place] [address] Dr. Radha Gomez Hematocrit (Bld) [Volume fraction] 50.9 % Normal 42.0-54.0 [facility] Comment on above: Performed By: #### C BC #### [facility] [address] [place] [address] Dr. Radha Gomez Hemoglobin (Bld) [Mass/Vol] 17.3 g/dL Normal 14.0-18.0 [facility] Comment on above: Performed By: #### C BC #### [facility] [address] [place] [address] Dr. Radha Gomez IG # 0.02 10e3/ul Normal 0.00-0.03 [facility] Comment on above: Performed By: #### C BC #### [facility] [address] [place] [address] Dr. Radha Gomez IG % 0.3 % Normal 0.0-0.5 [facility] Comment on above: Performed By: #### C BC #### [facility] [address] [place] [address] Dr. Radha Gomez LYMPH # 1.4 103/ul Normal 1.2-3.8 [facility] Comment on above: Performed By: #### C BC #### [facility] [address] [place] [address] Dr. Radha Gomez Lymphocytes/100 WBC (Bld) 18.0 % Critically low 20.5-60.0 [facility] Comment on above: Performed By: #### C BC #### [facility] [address] [place] [address] Dr. Radha Gomez MANUAL DIFF REQ NO Normal [facility] Comment on above: Performed By: #### C BC #### [facility] [address] [place] [address] Dr. Radha Gomez MCH (RBC) [Entitic mass] 31.3 pg Normal 25.9-34.0 [facility] Comment on above: Performed By: #### C BC #### [facility] [address] [place] [address] Dr. Radha Gomez MCHC (RBC) [Mass/Vol] 34.0 g/dL Normal 29.9-35.2 [facility] Comment on above: Performed By: #### C BC #### [facility] [address] [place] [address] Dr. Radha Gomez MCV (RBC) [Entitic vol] 92.0 fL Normal 80.0-94.0 [facility] Comment on above: Performed By: #### C BC #### [facility] [address] [place] [address] Dr. Radha Gomez MONO # 0.7 103/ul Normal 0.3-0.8 [facility] Comment on above: Performed By: #### C BC #### [facility] [address] [place] [address] Dr. Radha Gomez Monocytes/100 WBC (Bld) 8.3 % Normal 1.7-12.0 [facility] Comment on above: Performed By: #### C BC #### [facility] [address] [place] [address] Dr. Radha Gomez NEUT # 5.5 103/ul Normal 1.4-6.5 [facility] Comment on above: Performed By: #### C BC #### [facility] [address] [place] [address] Dr. Radha Gomez Neutrophils/100 WBC (Bld) 69.7 % Normal 43.0-75.0 [facility] Comment on above: Performed By: #### C BC #### [facility] [address] [place] [address] Dr. Radha Gomez Platelet mean volume (Bld) [Entitic vol] 9.3 fL Critically low 9.5-13.5 [facility] Comment on above: Performed By: #### C BC #### [facility] [address] [place] [address] Dr. Radha Gomez PLT 168 103/ul Normal 150-450 [facility] Comment on above: Performed By: #### C BC #### [facility] [address] [place] [address] Dr. Radha Gomez RBC 5.53 106/ul Normal 4.70-6.10 [facility] Comment on above: Performed By: #### C BC #### [facility] [address] [place] [address] Dr. Radha Gomez WBC 7.9 103/ul Normal 4.0-11.0 [facility] Comment on above: Performed By: #### C BC #### [facility] [address] [place] [address] LUNG CANCER SCREENINGon [...] MARSHALL DAVISON Date: 2021-12-10 11:08 Normal [facility] PROF 14(COMP METB)on 022 Albumin [Mass/Vol] 3.7 g/dL Normal 3.5-5.0 [facility] Comment on above: Performed By: #### C MP #### [facility] [address] [place], [place] [address] Dr. Radha Gomez Albumin/Globulin [Mass ratio] 1.1 {ratio} Normal [facility] Comment on above: Performed By: #### C MP #### [facility] [address] [place], [place] [address] Dr. Radha Gomez ALP [Catalytic activity/Vol] 92 U/L Normal 38-126 [facility] Comment on above: Performed By: #### C MP #### [facility] [address] [place] [address] [address] Radha Gomez ALT [Catalytic activity/Vol] 26 U/L Normal 21-72 [facility] Comment on above: Performed By: #### C MP #### [facility] [address] [place] [address] [address] Radha Gomez Anion gap [Moles/Vol] 13.0 mmol/L Normal [facility] Comment on above: Performed By: #### C MP #### [facility] [address] [place] [address] [address] Radha Gomez AST [Catalytic activity/Vol] 20 U/L Normal 17-59 [facility] Comment on above: Performed By: #### C MP #### [facility] [address] [place] [address] Dr. Radha Gomez Bilirubin [Mass/Vol] 1.1 mg/dL Normal 0.2-1.3 [facility] Comment on above: Performed By: #### C MP #### [facility] [address] [place] [address] Dr. Radha Gomez Calcium [Mass/Vol] 9.3 mg/dL Normal 8.4-10.2 [facility] Comment on above: Performed By: #### C MP #### [facility] [address] [place] [address] Dr. Radha Gomez Chloride [Moles/Vol] 106 mmol/L Normal 98-107 [facility] Comment on above: Performed By: #### C MP #### [facility] [address] [place] [address] [address] Radha Gomez CO2 [Moles/Vol] 23.4 mmol/L Normal 22.0-30.[address] [facility] Comment on above: Performed By: #### C MP #### [facility] [address] [place] [address] Dr. Radha Gomez Creatinine [Mass/Vol] 1.39 mg/dL Critically high 0.66-1.25 [facility] Comment on above: Performed By: #### C MP #### [facility] [address] [place] [address] [address] Radha Gomez EGFR-AF ITALIAN >60 Normal >=[address] [facility] Comment on above: Performed By: #### C MP #### [facility] [address] [place] [address] [address] Radha Gomez EGFR-NON AF ITALIAN 51 mL/min/1.73m2 Critically low >=60 [facility] Comment on above: Performed By: #### C MP #### [facility] [address] [place] [address] [address] Radha Gomez Globulin (S) [Mass/Vol] 3.4 g/dL Normal [facility] Comment on above: Performed By: #### C MP #### [facility] [address] [place] [address] [address] Radha Gomez Glucose [Mass/Vol] 94 mg/dL Normal 74-106 [facility] Comment on above: Performed By: #### C MP #### [facility] [address] [place] [address] [address] Radha Gomez Potassium [Moles/Vol] 4.4 mmol/L Normal 3.4-5.0 [facility] Comment on above: Performed By: #### C MP #### [facility] [address] [place] [address] [address] Radha Gomez Protein [Mass/Vol] 7.1 g/dL Normal 6.1-8.2 [facility] Comment on above: Performed By: #### C MP #### [facility] [address] [place] [address] [address] Radha Gomez Sodium [Moles/Vol] 138 mmol/L Normal 137-145 [facility] Comment on above: Performed By: #### C MP #### [facility] [address] [place] [address] [address] Radha Gomez Urea nitrogen [Mass/Vol] 23.0 mg/dL Critically high 9.0-20.0 [facility] Comment on above: Performed By: #### C MP #### [facility] [address] [place] [address] [address] Radha Gomez Urea nitrogen/Creatinine [Mass ratio] 16.5 mg/mg Normal [facility] Comment on above: Performed By: #### C #### [facility] [address] [place] [address] [address] Radha Gomez XR LSPINE 2_3 VIEWSon [...] by: MARSHALL DAVISON Date: 2021-12-10 11:13 Normal [facility] Vital Signs Date Time Vital Sign Value Performing Clinician Facility 07-10-2025 16:03-0400 Body height 182.9 cm Saul Pérez DPM Work Phone: [facility] 07-10-2025 16:03-0400 Body mass index (BMI) [Ratio] 28.62 kg/m2 Saul Pérez DPM Work Phone: [facility] 07-10-2025 16:03-0400 Body weight 95.71 kg Saul Pérez DPM Work Phone: [facility] 07-10-2025 16:03-0400 Respiratory rate 16 /min Saul Pérez DPM Work Phone: [facility] 07-07-2025 13:06-0400 Body height 185.42 cm [facility] Work Phone: [facility] 07-07-2025 13:06-0400 Body mass index (BMI) [Ratio] 27.4 kg/m2 [facility] Work Phone: [facility] 07-07-2025 13:06-0400 Body temperature 98.3 [degF] [facility] Work Phone: [facility] 07-07-2025 13:06-0400 Body weight 94.4 kg [facility] Work Phone: [facility] 07-07-2025 13:06-0400 Diastolic blood pressure 84 mm[Hg] [facility] Work Phone: [facility] 07-07-2025 13:06-0400 Heart rate 54 /min [facility] Work Phone: [facility] 07-07-2025 13:06-0400 Respiratory rate 18 /min [facility] Work Phone: [facility] 07-07-2025 13:06-0400 SaO2% (BldA) [Mass fraction] 94 % [facility] Work Phone: [facility] 07-07-2025 13:06-0400 Systolic blood pressure 122 mm[Hg] [facility] Work Phone: [facility] 05-27-2025 15:04-0400 Diastolic blood pressure 70 mm[Hg] [facility] Work Phone: [facility] 05-27-2025 15:04-0400 Systolic blood pressure 110 mm[Hg] [facility] Work Phone: [facility] 04-17-2025 16:00-0400 Body height 182.9 cm Saul Pérez DPM Work Phone: [facility] 04-17-2025 16:00-0400 Body mass index (BMI) [Ratio] 28.62 kg/m2 Saul Pérez DPM Work Phone: [facility] 04-17-2025 16:00-0400 Body weight 95.71 kg Saul Pérez DPM Work Phone: [facility] 04-17-2025 16:00-0400 Respiratory rate 16 /min Saul Pérez DPM Work Phone: [facility] 03-11-2025 13:49-0400 Body mass index (BMI) [Ratio] 28.62 kg/m2 Darlenekhris Sidhubobbyholz LEAD SETTER Work Phone: [facility] 03-11-2025 13:49-0400 Body temperature 98.49 [degF] Darlene Theajamez LEAD SETTER Work Phone: [facility] 03-11-2025 13:49-0400 Body weight 95.71 kg Darlene Aichholz LEAD SETTER Work Phone: [facility] 03-11-2025 13:49-0400 Diastolic blood pressure 80 mm[Hg] Darlene Theahholz LEAD SETTER Work Phone: [facility] 03-11-2025 13:49-0400 Heart rate 68 /min Darlene Florencioholz LEAD SETTER Work Phone: [facility] 03-11-2025 13:49-0400 Respiratory rate 20 /min Darlene Aichholz LEAD SETTER Work Phone: [facility] 03-11-2025 13:49-0400 SaO2% (BldA) [Mass fraction] 90 % Darlene Theahholz LEAD SETTER Work Phone: [facility] 03-11-2025 13:49-0400 Systolic blood pressure 118 mm[Hg] Darlene Theahholz LEAD SETTER Work Phone: [facility] 03-05-2025 13:46-0400 Body height 182.9 cm Alonso Hien DO Work Phone: [facility] 03-05-2025 13:46-0400 Body mass index (BMI) [Ratio] 28.35 kg/m2 Alonso Hien DO Work Phone: [facility] 03-05-2025 13:46-0400 Body weight 94.8 kg Alonso Hien DO Work Phone: [facility] 03-05-2025 13:46-0400 Diastolic blood pressure 84 mm[Hg] Alonso Hien DO Work Phone: [facility] 03-05-2025 13:46-0400 Heart rate 85 /min Alonso Hien DO Work Phone: [facility] 03-05-2025 13:46-0400 SaO2% (BldA) [Mass fraction] 93 % Alonso Hien DO Work Phone: [facility] 03-05-2025 13:46-0400 Systolic blood pressure 126 mm[Hg] Alonso Hien DO Work Phone: [facility] 01-23-2025 13:43-0400 Body height 185.4 cm Saul Brown DPM Work Phone: [facility] 01-23-2025 13:43-0400 Body mass index (BMI) [Ratio] 27.57 kg/m2 Saul Pérez DPM Work Phone: [facility] 01-23-2025 13:43-0400 Body weight 94.8 kg Saul Pérez DPM Work Phone: [facility] 01-23-2025 13:43-0400 Diastolic blood pressure 88 mm[Hg] Saul Pérez DPM Work Phone: [facility] 01-23-2025 13:43-0400 Heart rate 70 /min Saul Pérez DPM Work Phone: [facility] 01-23-2025 13:43-0400 Systolic blood pressure 138 mm[Hg] Saul Pérez DPM Work Phone: [facility] 01-06-2025 13:16-0400 Body height 185.4 cm Darlene De Souza LEAD SETTER Work Phone: [facility] 01-06-2025 13:16-0400 Body mass index (BMI) [Ratio] 27.57 kg/m2 Darlene De Souza LEAD SETTER Work Phone: [facility] 01-06-2025 13:16-0400 Body temperature 97.81 [degF] Darlene De Souza LEAD SETTER Work Phone: [facility] 01-06-2025 13:16-0400 Body weight 94.8 kg Darlene De Souza LEAD SETTER Work Phone: [facility] 01-06-2025 13:16-0400 Diastolic blood pressure 88 mm[Hg] Darlene Eubanksz LEAD SETTER Work Phone: [facility] 01-06-2025 13:16-0400 Heart rate 70 /min Darlene Eubanksz LEAD SETTER Work Phone: [facility] 01-06-2025 13:16-0400 Respiratory rate 19 /min Darlene Eubanksz LEAD SETTER Work Phone: [facility] 01-06-2025 13:16-0400 SaO2% (BldA) [Mass fraction] 90 % Darlene Eubanksz LEAD SETTER Work Phone: [facility] 01-06-2025 13:16-0400 Systolic blood pressure 138 mm[Hg] Darlene Eubanksz LEAD SETTER Work Phone: [facility] 10-31-2024 09:17-0500 Body height 185.4 cm Saul Pérez DPM Work Phone: [facility] 10-31-2024 09:17-0500 Body mass index (BMI) [Ratio] 28.5 kg/m2 Saul Pérez DPM Work Phone: [facility] 10-31-2024 09:17-0500 Body weight 97.98 kg Saul Pérez DPM Work Phone: [facility] 10-31-2024 09:17-0500 Respiratory rate 18 /min Saul Pérez DPM Work Phone: [facility] 10-16-2024 09:48-0500 Body height 185.4 cm Linda Dempsey LEAD SETTER Work Phone: [facility] 10-16-2024 09:48-0500 Body mass index (BMI) [Ratio] 28.5 kg/m2 Linda Dempsey LEAD SETTER Work Phone: [facility] 10-16-2024 09:48-0500 Body temperature 97.59 [degF] Linda Dempsey LEAD SETTER Work Phone: [facility] 10-16-2024 09:48-0500 Body weight 97.98 kg Linda Dempsey LEAD SETTER Work Phone: [facility] 10-16-2024 09:48-0500 Diastolic blood pressure 86 mm[Hg] Linda Dempsey LEAD SETTER Work Phone: [facility] 10-16-2024 09:48-0500 Heart rate 97 /min Linda Dempsey LEAD SETTER Work Phone: [facility] 10-16-2024 09:48-0500 Respiratory rate 18 /min Linda Dempsey LEAD SETTER Work Phone: [facility] 10-16-2024 09:48-0500 SaO2% (BldA) [Mass fraction] 93 % Linda Dempsey LEAD SETTER Work Phone: [facility] 10-16-2024 09:48-0500 Systolic blood pressure 120 mm[Hg] Linda Dempsey LEAD SETTER Work Phone: [facility] 08-22-2024 09:34-0400 Body height 185.4 cm Saul Pérez DPM Work Phone: [facility] 08-22-2024 09:34-0400 Body mass index (BMI) [Ratio] 27.71 kg/m2 Saul Pérez DPM Work Phone: [facility] 08-22-2024 09:34-0400 Body weight 95.25 kg Saul Pérez DPM Work Phone: [facility] 08-22-2024 09:34-0400 Diastolic blood pressure 80 mm[Hg] Saul Pérez DPM Work Phone: [facility] 08-22-2024 09:34-0400 Heart rate 88 /min Saul Pérez DPM Work Phone: [facility] 08-22-2024 09:34-0400 Systolic blood pressure 126 mm[Hg] Saul Pérez DPM Work Phone: [facility] 07-08-2024 10:08-0400 Body height 185.4 cm Linda Dempsey LEAD SETTER Work Phone: [facility] 07-08-2024 10:08-0400 Body mass index (BMI) [Ratio] 27.71 kg/m2 Linda Dempsey LEAD SETTER Work Phone: [facility] 07-08-2024 10:08-0400 Body temperature 97.81 [degF] Linda Dempsey LEAD SETTER Work Phone: [facility] 07-08-2024 10:08-0400 Body weight 95.25 kg Linda Dempsey LEAD SETTER Work Phone: [facility] 07-08-2024 10:08-0400 Diastolic blood pressure 86 mm[Hg] Linda Dempsey LEAD SETTER Work Phone: [facility] 07-08-2024 10:08-0400 Heart rate 77 /min Linda Dempsey LEAD SETTER Work Phone: [facility] Comment on above: 96% O2 07-08-2024 10:08-0400 Systolic blood pressure 136 mm[Hg] Linda Dempsey LEAD SETTER Work Phone: [facility] 06-17-2022 10:30-0400 Body height 185.42 cm Rowena Haines Other [employer] Other 06-17-2022 10:30-0400 Body mass index (BMI) [Ratio] 28.36 kg/m2 Rowena Haines Other [employer] Other 06-17-2022 10:30-0400 Body temperature 97.7 [degF] Rowena Haines Other [employer] Other 06-17-2022 10:30-0400 Body weight 97.52 kg Rowena Haines Other [employer] Other 06-17-2022 10:30-0400 Diastolic blood pressure 93 mm[Hg] Rowena Haines Other [employer] Other 06-17-2022 10:30-0400 Respiratory rate 18 /min Rowena Haines Other [employer] Other 06-17-2022 10:30-0400 SaO2% (BldA) [Mass fraction] 95 % Rowena Haines Other [employer] Other 06-17-2022 10:30-0400 Systolic blood pressure 135 mm[Hg] Rowena Haines Other [employer] Other 03-08-2022 11:20-0400 Body height 185.42 cm Lisa Carrillomariela Other [employer] Other 03-08-2022 11:20-0400 Body mass index (BMI) [Ratio] 28.6 kg/m2 Lisa [employer] Other [employer] Other 03-08-2022 11:20-0400 Body temperature 97.9 [degF] Lisa Carrillomariela Other [employer] Other 05-10-2022 11:20-0400 Body weight 98.34 kg Lias Lester Other [employer] Other 03-08-2022 11:20-0400 Diastolic blood pressure 90 mm[Hg] Lisa Lester Other [employer] Other 03-08-2022 11:20-0400 Respiratory rate 20 /min Lisa Lester Other [employer] Other 03-08-2022 11:20-0400 SaO2% (BldA) [Mass fraction] 90 % Lisa Lester Other [employer] Other 03-08-2022 11:20-0400 Systolic blood pressure 130 mm[Hg] Lisa Lester Other [employer] Other Encounters Encounter Date Encounter Type Care [...] [facility] Start: 07-07-2025 End: 07-07-2025 ambulatory [facility] Work Phone: [facility] Work Phone: Start: 07-07-2025 End: 07-07-2025 Patient encounter procedure Darlene De Souza LEAD SETTER- -[facility] [place] Work Phone: Start: 07-07-2025 Patient encounter procedure [facility] Work Phone: [facility] Start: 06-18-2025 End: 06-18-2025 Clinisync Result Encounter Darlene Nolvia LEAD SETTER Work Phone: [facility] Unsolicited Start: 06-18-2025 End: 06-18-2025 Clinisync Result Encounter Darlene Nolvia LEAD SETTER Work Phone: [facility] Unsolicited Start: 06-05-2025 End: 06-06-2025 Refill Darlene Chaz LEAD SETTER Work Phone: [facility] Comment on above: Vitamin D deficiency Start: 05-27-2025 End: 05-27-2025 ambulatory [facility] Work Phone: [facility] Work Phone: Start: 05-27-2025 End: 05-27-2025 Patient encounter procedure Katy Arellano RADIO FREQUENCY TECHNICIAN -[facility] [place] Work Phone: Start: 05-13-2025 End: 05-13-2025 Refill Darlene Florencioholz LEAD SETTER Work Phone: [facility] Comment on above: Pulmonary emphysema, unspecified emphysema type (HCC) Start: 05-07-2025 End: 05-07-2025 Refill Darlene Aichholz LEAD SETTER Work Phone: [facility] Comment on above: Essential tremor; Vitamin D deficiency Start: 04-21-2025 End: 04-21-2025 Patient encounter procedure Alonso Adams [facility] Work Phone: Start: 04-17-2025 End: 04-17-2025 [...] Start: 03-25-2025 End: 03-25-2025 Clinisync Result Encounter Alonos Adams DO Work Phone: [facility] Unsolicited Start: 03-25-2025 End: 03-25-2025 Clinisync Result Encounter Alonso Oconnellner DO Work Phone: [facility] Unsolicited Start: 03-25-2025 End: 03-25-2025 Refill Darlene De Souza LEAD SETTER Work Phone: [facility] Comment on above: Pulmonary emphysema, unspecified emphysema type (CMS/HCC) (Primary Dx) Start: 03-11-2025 End: 03-11-2025 Bamboo flowsheet Darlene De Souza LEAD SETTER Work Phone: [facility] Start: 03-11-2025 End: 03-11-2025 Bamboo flowsheet Darlene De Souza LEAD SETTER Work Phone: [facility] Start: 03-11-2025 End: 03-11-2025 Office outpatient visit 15 minutes Darlene De Souza LEAD SETTER Work Phone: [facility] Comment on [...] 02-27-2025 Clinisync Result Encounter Darlene De Souza LEAD SETTER Work Phone: [facility] Unsolicited Start: 02-27-2025 End: 02-27-2025 Refill Darlene De Souza LEAD SETTER Work Phone: [facility] Comment on [...] outpatient visit 25 minutes Darlene De Souza LEAD SETTER Work Phone: [facility] Comment on [...] 10-16-2024 End: 10-16-2024 Bamboo flowsheet Linda Dempsey LEAD SETTER Work Phone: [facility] Start: 10-16-2024 End: 10-16-2024 Bamboo flowsheet Linda Dempsey LEAD SETTER Work Phone: [facility] Start: 10-16-2024 End: 10-16-2024 Patient encounter procedure Linda Mortonk LEAD SETTER Work Phone: [facility] Comment on [...] 07-08-2024 End: 07-08-2024 Bamboo flowsheet Linda Mortonk LEAD SETTER Work Phone: [facility] Start: 07-08-2024 End: 07-08-2024 Bamboo flowsheet Linda Amandatrick LEAD SETTER Work Phone: [facility] Start: 07-08-2024 End: 07-08-2024 Office outpatient visit 15 minutes Linda Mortonk LEAD SETTER Work Phone: [facility] Comment on above: Pulmonary emphysema, unspecified emphysema type (CMS/HCC) (Primary Dx); Stage 3a chronic kidney disease (HCC) (CMS/HCC); Impacted cerumen of both ears Start: 10-10-2023 Patient encounter procedure Linda Mortonk LEAD SETTER Work Phone: [facility] Start: 07-07-2023 End: 07-07-2023 ambulatory MOHAMAD [facility] Start: 01-25-2023 End: 01-25-2023 [facility] Start: 11-10-2022 End: 11-11-[address] MARSHALL DAVISON Facility:[facility] Start: 11-02-2022 End: 11-03-2022 ambulatory YANDY MIRIAM Facility:[facility] Start: 06-28-2022 End: 07-22-2022 ambulatory SHAIKH Bobby CONTRERAS Facility:[facility] Start: 06-21-2022 End: 06-22-2022 ambulatory SHAIKH Bobby CONTRERAS Facility:[facility] Start: 06-17-2022 End: 06-17-2022 ambulatory Rowena Haines Other [employer] Other Start: 06-17-2022 Office outpatient vi sit 15 minutes Rowena Haines [facility] [place] Start: 03-08-2022 End: 03-08-2022 ambulatory Aziz Bakhous Other [employer] Other Start: 03-08-2022 Office outpatient ne w 30 minutes Aziz Bakhous [facility] [place] Start: 02-22-2022 End: 02-23-2022 ambulatory SHAIKH Bobby PAZSharifa Facility:[facility] Start: 12-10-2021 End: 12-11-2021 ambulatory RICHELLE HUNTLEY Facility:[facility] Start: 02-27-2018 End: 02-28-2018 Ambulatory DEFAULT PHYSICIAN Facility:[facility] Procedures Date Procedure Procedure Detail Performing Clinician Start: 06-18-2025 TBH VITAMIN D 25 [place] Lis a Nolvia LEAD SETTER Work Phone: Start: 03-25-2025 ALL FOLIC ACID Alonso D franko DO Work Phone: Start: 02-27-2025 ALL CBC WITH AUTO DIFF Darlene Nolvia LEAD SETTER Work Phone: Start: 01-08-2025 CT CHEST WO [...] Procedure Visit [facility] [address] [facility] [address] [place] [phone] Saul Pérez DPM [address] [address] [facility] Start: 07-10-2025 End: 07-10-2025 Patient encounter procedure 07/10/2025 4:10 PM EDT Procedure Visit [facility] [address] [facility] [address] [place] [phone] Saul Pérez DPM [address] [address] Pain due to onychomycosis of toenails of both feet (Primary Dx); Venous insufficiency [facility] Comment on above: Pain due to onychomy cosis of toenails of both feet (Primary Dx); Venous insufficiency Start: 07-07-2025 Patient referral [facility] Work Phone: Start: 07-07-2025 End: 07-07-2025 Patient encounter procedure 07/07/2025 1:00 PM EDT Office Visit [facility] [address] [place] [phone] Darlene De Souza NP [address] [place] [phone] [facility] Start: 06-30-2025 Influenza vaccination Influenza Vacc ine (#1) [facility] Start: 06-26-2025 End: 06-26-2025 Patient encounter procedure 06/26/2025 2:20 PM EDT Procedure Visit [facility] [address] [place] [address] [place] [phone] Saul Pérez, DPAdan [address] [facility] [address] [place] [address] [facility] Start: 06-11-2025 End: 06-11-2025 Patient encounter procedure 06/11/2025 1:00 PM EDT [facility] [address] [place] [address] Darlene De Souza NP [address] [place] [address] [facility] Start: 05-27-2025 End: 05-27-2025 Patient encounter procedure 05/27/2025 2:40 PM EDT Office Visit [facility] [address] [place] [phone] Katy Floyd NP [address] [place], [place] [facility] Start: 05-07-2025 End: 05-07-2026 25-hydroxyvitamin D3 [Mass/volume] in Serum or Plasma Vitamin D 25 hydroxy Lab Routine Vitamin D deficiency Expected: 05/07/2025 (Approximate), Expires: 05/07/2026 [facility] Work Phone: Comment on above: Expected: 05/07/2025 (Approximate), Expires: 05/07/2026 Start: 04-21-2025 End: 04-21-2025 Patient encounter procedure 04/21/2025 10:30 AM EDT Procedure Visit [facility] [place] [address] [facility] [address] [place] [phone] Alonso Adams DO [address] [place], [place] [id number] [facility] Start: 04-17-2025 End: 04-17-2025 Patient encounter procedure 04/17/2025 4:00 PM EDT Procedure Visit [facility] [address] [facility] [address] [place] [address] Saul Pérez, DPM [address] [address] Pain due to onychomycosis of toenails of both feet (Primary Dx); Venous insufficiency [facility] Comment on above: Pain due to onychomy cosis of toenails of both feet (Primary Dx); Venous insufficiency Start: 04-03-2025 End: 04-03-2025 Patient encounter procedure 04/03/2025 3:00 PM EDT Procedure Visit [facility] [address] [facility] [address] [place] [phone] Saul Pérez DPM [address] [address] [facility] Start: 03-11-2025 End: 03-11-2025 Patient encounter procedure [facility] Comment on above: Tremor (Primary Dx); Impacted [...] procedure 01/16/2025 9:40 AM EDT Procedure Visit [facility] [address] [address] Saul Pérez, DPAdan 3[address] [facility] 5 [place] [address] [facility] Start: 01-06-2025 End: 01-06-2026 [...] (HCC) (CMS/HCC) Expected: 01/06/2025 (Approximate), Expires: 01/06/2026 [facility] Work Phone: Comment on above: Expected: 01/06/2025 (Approximate), Expires: 01/06/2026 Start: 01-06-2025 End: 01-06-2026 Cobalamin (Vitamin B12) [Mass/volume] in Serum or Plasma Vitamin B12 Lab Routine Tremor Expected: 01/06/2025 (Approximate), Expires: 01/06/2026 [facility] Comment on above: Expected: 01/06/2025 (Approximate), Expires: 01/06/2026 Start: 01-06-2025 End: 01-06-2026 Comprehensive metabolic 2000 panel - Serum or Plasma Comprehensive metabolic panel Lab Routine Chronic kidney disease, stage 3a (HCC) ([facility]/HCC) Expected: 01/06/2025 (Approximate), Expires: 01/06/2026 [facility] Comment on above: Expected: 01/06/2025 (Approximate), Expires: 01/06/2026 Start: 01-06-2025 End: 01-06-2026 Magnesium [Mass/volume] in Serum or Plasma Magnesium Lab Routine Myalgia Expected: 01/06/2025 (Approximate), Expires: 01/06/2026 [facility] Comment on above: Expected: 01/06/2025 (Approximate), Expires: 01/06/2026 Start: 01-06-2025 End: 01-06-2026 Microalbumin/Creatinine panel in random Urine Microalbumin / creatinine, urine ratio Lab Routine Chronic kidney disease, stage 3a (HCC) ([facility]/HCC) Expected: 01/06/2025 (Approximate), Expires: 01/06/2026 [facility] Comment on above: Expected: 01/06/2025 (Approximate), Expires: 01/06/2026 Start: 01-06-2025 End: 01-06-2026 Thyrotropin [Units/volume] in Serum or Plasma TSH Lab Routine Tremor Expected: 01/06/2025 (Approximate), Expires: 01/06/2026 [facility] Comment on above: Expected: 01/06/2025 (Approximate), Expires: 01/06/2026 Start: 01-06-2025 End: 01-06-2026 Thyroxine (T4) free [Mass/volume] in Serum or Plasma T4, free Lab Routine Tremor Expected: 01/06/2025 (Approximate), Expires: 01/06/2026 [facility] Comment on above: Expected: 01/06/2025 (Approximate), Expires: 01/06/2026 Start: 01-06-2025 End: 01-06-2026 Triiodothyronine (T3) Free [Mass/volume] in Serum or Plasma T3, free Lab Routine Tremor Expected: 01/06/2025 (Approximate), Expires: 01/06/2026 [facility] Comment on above: Expected: 01/06/2025 (Approximate), Expires: 01/06/2026 Start: 01-06-2025 End: 01-06-2026 Urinalysis complete panel - Urine Urinalysis with reflex microscopic (clean catch) Lab Routine Chronic kidney disease, stage 3a (HCC) (CMS/HCC) Expected: 01/06/2025 (Approximate), Expires: 01/06/2026 [facility] Comment on above: Expected: 01/06/2025 (Approximate), Expires: 01/06/2026 Start: 01-06-2025 End: 01-06-2025 Patient encounter procedure 01/06/2025 9:00 AM EDT Office Visit [facility] [address] [place] [phone] Linda Dempsey, LEAD SETTER [address] [place] [phone] [facility] Start: 11-21-2024 End: 11-21-2024 Patient encounter procedure 11/21/2024 9:00 AM EST Office Visit [facility] [address] [place] [phone] Linda Dempsey, LEAD SETTER [address] [place] [phone] [facility] Start: 10-31-2024 End: 10-31-2024 Patient encounter procedure [facility] Comment on above: Pain due to onychomy cosis of toenails of both feet (Primary Dx); Venous insufficiency Start: 10-17-2024 End: 10-17-2024 Patient encounter procedure [facility] Start: 10-16-2024 End: 10-16-2024 Patient encounter procedure 10/16/2024 10:00 AM EST Office Visit [facility] [address] [place] [address] Linda Dempsey NP [address] [place] [address] Arrived [facility] Comment on above: Arrived Start: 10-10-2024 Medicare Annual Well ness (AWV) Medicare Annual Wellness (AWV) [facility] Start: 10-07-2024 End: 10-07-2024 Patient encounter procedure 10/07/2024 9:00 AM EST Office Visit [facility] [address] [place] [address] Linda Dempsey, BLANQUITA [address] [place] [address] [facility] Start: 08-22-2024 End: 08-22-2024 Patient encounter procedure 08/22/2024 2:20 PM EDT Procedure Visit [facility] [address] [place] [id number] Saul Pérez DPM [address] [address] [facility] Start: 08-22-2024 End: 08-22-2024 Patient encounter procedure 08/22/2024 9:20 AM EDT Procedure Visit [facility] [address] [place] [id number] Saul Pérez, DPM [address] [address] Pain due to onychomycosis of toenails of both feet (Primary Dx); Venous insufficiency [facility] Comment on above: Pain due to onychomy cosis of toenails of both feet (Primary Dx); Venous insufficiency Start: 07-08-2024 End: 07-08-2024 Patient encounter procedure 07/08/2024 10:00 AM EDT [facility] [address] [facility] [place] [address] Linda Dempsey NP [address] [place] [address] Arrived [facility] Comment on above: Arrived Start: 06-30-2024 Influenza vaccination Influenza Vacc ine (#1) [facility] Start: 1950 Screening for malign ant neoplasm of colon [facility] Comprehensive metabo lic 2000 panel - Serum or Plasma [facility] Chest W contrast IV [facility] Patient referral [facility] Work Phone: [facility] Immunizations Immunization Date Immunization Notes Care Provider Fa cility 08-02-2024 Pneumococcal Conjuga te PCV 20 Darlene De Souza LEAD SETTER Work Phone: [facility] 08-02-2024 SARS-COV-2 (COVID-19 ) vaccine, mRNA, spike protein, LNP, preservative free, 25 mcg/0.25 mL dose CVX 311 Darlene De Souza LEAD SETTER Work Phone: [facility] 08-02-2024 Seasonal trivalent influenza vaccine, adjuvanted, preservative free Darlene De Souza LEAD SETTER Work Phone: [facility] 08-02-2024 influenza virus vacc ine, unspecified formulation Saul Pérez DPM Work Phone: [facility] 09-29-2023 influenza, high dose seasonal, preservative-free Linda Dempsey LEAD SETTER Work Phone: [facility] 09-29-2023 influenza virus vacc ine, unspecified formulation Linda Dempsey LEAD SETTER Work Phone: [facility] 08-22-2023 Influenza, Seasonal, Quadrivalent, Adjuvanted Darlene Aichholz LEAD SETTER Work Phone: [facility] 08-01-2022 Seasonal trivalent influenza vaccine, adjuvanted, preservative free Darlene Aichholz LEAD SETTER Work Phone: [facility] 08-09-2021 Seasonal trivalent influenza vaccine, adjuvanted, preservative free Darlene Aichholz LEAD SETTER Work Phone: [facility] 08-06-2020 pneumococcal polysaccharide vaccine, 23 valent Darlene Aichholz LEAD SETTER Work Phone: [facility] 08-06-2020 Seasonal trivalent influenza vaccine, adjuvanted, preservative free Darlene Aichholz LEAD SETTER Work Phone: [facility] 08-05-2019 influenza, injectabl e, quadrivalent, contains preservative Darlene Aichholz LEAD SETTER Work Phone: [facility] 12-15-2016 influenza, injectabl e, quadrivalent, preservative free Darlene Aichholz LEAD SETTER Work Phone: [facility] Payers Date Payer Category Payer Private Health Insurance [employer] [id number] 2021 Unknown 2015 Medicare [id number] 1959 Medicare [id number] [id number] 1959 Medicare [id number] [id number] 1951 Unknown [id number] 2.16.840.1.530255.3.579.2. 593 1951 Unknown [id number] 2.16.840.1.871974.3.579.2. 593 1951 Unknown [id number] 2.16.840.1.295962.3.579.2. 593 1951 Unknown [id number] 2.16.840.1.723063.3.579.2. 593 1951 Unknown [id number] 2.16.840.1.639288.3.579.2. 593 1951 Unknown [id number] 2.16.840.1.912325.3.579.2. 593 1951 Unknown [id number] 2.16.840.1.753139.3.579.2. 1259 1951 Unknown [id number] 2.16.840.1.193975.3.579.2. 1259 1951 Unknown [id number] 2.16.840.1.468059.3.579.2. 1259 1951 Unknown [id number] 2.16.840.1.485681.3.579.2. 1259 1951 Unknown [id number] 2.16.840.1.928847.3.579.2. 1259 1951 Unknown [id number] 2.16.840.1.500349.3.579.2. 1259 1951 Unknown [id number] 2.16.840.1.694188.3.579.2. 1259 1951 Unknown [id number] 2.16.840.1.243940.3.579.2. 1259 1950 Unknown [id number] 2.16.840.1.762541.3.579.2. 1259 Social History Date Type Detail Facility Unknown if ever smoked [facility] [employer] Other Start: 07-08-2024 End: 10-16-2024 Sex Assigned At [facility] [employer] Other Start: 04-24-2024 Tobacco smoking stat [facility] Ex-smoker [facility] History of tobacco [...] file [facility] Tobacco smoking stat [facility] Unknown if ever smoked [facility] Work Phone: Sex Male (finding) [facility] Start: 1950 Sex Assigned At Male [facility] Clinical Notes 03-08-2022 to 07-10-2025 Saul [...] HTN CKD (chronic kidney disease), stage III ([facility]) COPD (chronic obstructive pulmonary disease) ([facility]) GOLDEN (dyspnea on exertion) Dyslipidemia (high LDL; [...] mouth Daily, Disp: 30 capsule, Rfl: 1 Whmcercmzyz-Vbvwyjayr-Naawij (Trelegy Ellipta) 200-62.5-25 MCG/ACT aerosol powder , [...] Partner Violence: Unknown (12/21/2023) Received from [facility] Fear of Current or [...] Saul Pérez DPM documented in this encounter [facility] 07-10-2025 Evaluation note Diagnosis Stage 3a [...] Impacted cerumen Chronic kidney disease, stage 3a ([facility]-HCC) Vitamin D deficiency Vitamin B12 deficiency Other B-complex deficiencies Pain due to onychomycosis of toenails of both feet- Primary Venous insufficiency Unspecified venous (peripheral) insufficiency documented in this encounter [facility] HospitalLxwhoifkuu38-37-4712 Evaluation note* Diagnosis Stage 3a chronic kidney [...] Vitamin D deficiency documented in this encounter [facility] HospitalZzdjrhlwsu49-28-9841 Evaluation note* Diagnosis Onset Date Resolution Status Admit Date Essential tremor acute April 2:28pm Peripheral neuropathy acute Apr 2:28pm Vitamin B12 deficiency acute Ju ly 2024 2:28pm COPD with emphysema acute 2024 1:01pm Multiple pulmonary nodules acute July 07, 2025 1:01pm Syncope and collapse acute Jun 1:01pm [facility] Work Phone: [phone]) 913-187507-15-2025 Evaluation note* Diagnosis Stage 3a chronic kidney disease ([facility]-HCC)- Primary Encounter for Medicare annual wellness exam [...] emphysema type (HCC) documented in this encounter [facility] HospitalJlvusxcudc18-00-2116 History of Present illness Narrative* Saul Pérez [...] of breath, Disp: 18 g, Rfl: 1 Gurbfkwkdah-Lucibupqs-Baoqyg (Trelegy Ellipta) 200-62.5-25 MCG/ACT aerosol powder , [...] Partner Violence: Unknown (12/21/2023) Received from [facility] Environment Fear of Current or [...] 10 Saul Pérez DPM documented in this encounterUniversity of [facility]'s HospitalIwezrykzoh83-40-7636 Evaluation note* Diagnosis Stage 3a chronic kidney [...] venous (peripheral) insufficiency documented in this encounter [facility] HospitalXuqiwnanpz52-70-2660 Evaluation note* Diagnosis Stage 3a chronic kidney [...] type (CMS/HCC)- Primary documented in this encounter [facility] HospitalYaszkukbhw24-97-5433 History of Present illness Narrative* Darlene De [...] Problem(s): Chronic kidney disease, stage 3a (HCC) ([facility]/HCC) Continue to monitor, appears to be stable * Darlene De Souza, LEAD SETTER - 03/11/2025 1:40 PM EDT Images from [...] cholecalciferol (VITAMIN D-3) 125 mcg, Oral, Daily Tvnixxvtwnu-Bqqhsirzh-Xhqqws (Trelegy Ellipta) 200-62.5-25 MCG/ACT aerosol powder 1 [...] (HCC) (CMS/HCC) COPD (chronic obstructive pulmonary disease) ([facility]/HCC) GOLDEN (dyspnea on exertion) Dyslipidemia (high [...] propranolol at appt 03/05/25 documented in this encounterUniversity of [facility]'s HospitalEqjewxwtfc21-67-4839 Evaluation note* Diagnosis Stage 3a chronic kidney disease (HCC) ([facility]/HCC)- Primary Encounter for Medicare annual wellness exam Pulmonary emphysema, unspecified emphysema type ([facility]/HCC) COPD with exacerbation (CMS/HCC) Stage 3a chronic kidney disease (HCC) ([facility]/HCC)- Primary Pulmonary emphysema, unspecified emphysema type ([facility]/HCC) Subconjunctival hemorrhage of left eye Pulmonary emphysema, unspecified emphysema type (CMS/HCC)- Primary Stage 3a chronic kidney disease (HCC) (CMS/HCC) Pulmonary emphysema, unspecified emphysema type (CMS/HCC)- Primary Stage 3a chronic kidney disease (HCC) (CMS/HCC) Impacted cerumen of both ears Impacted cerumen Screening for prostate cancer- Primary Special screening for malignant neoplasm of prostate Centrilobular emphysema ([facility]/HCC) Chronic respiratory failure with hypoxia (CMS/HCC) Chronic kidney disease, stage 3a (HCC) ([facility]/HCC) Bronchiectasis, uncomplicated ([facility]/HCC) Myalgia Unspecified myalgia and myositis Tremor Abnormal involuntary movements Impacted cerumen of both ears Impacted cerumen Tremor- Primary Abnormal involuntary movements Impacted cerumen of both ears Impacted cerumen Chronic kidney disease, stage 3a (HCC) ([facility]/HCC) Vitamin D deficiency Vitamin B12 deficiency Other B-complex deficiencies documented in this encounter [facility] HospitalMkbvdumzlz02-74-3092 History of Present illness Narrative* Alonso Adams [...] comes and goes. 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 [...] CKD (chronic kidney disease), stage III (HCC) ([facility]) COPD (chronic obstructive pulmonary disease) ([facility]) GOLDEN (dyspnea on exertion) Dyslipidemia (high LDL; low HDL) ([facility]) Essential tremor Left hip pain Muscle cramping [...] to clinic: 2 months documented in this encounterUniversity of [facility] Children's HospitalWsgrgnbaxo17-74-8949 Evaluation note* Diagnosis Stage 3a chronic kidney [...] Abnormal involuntary movements documented in this encounter [facility] HospitalGnvnrmodgf49-60-8379 Evaluation note* Diagnosis Stage 3a chronic kidney [...] D deficiency- Primary documented in this encounter [facility] HospitalZmxdilyooo21-29-0731 History of Present illness Narrative* Saul Pérez [...] CKD (chronic kidney disease), stage III (HCC) ([facility]) COPD (chronic obstructive pulmonary disease) ([facility]) GOLDEN (dyspnea on exertion) Dyslipidemia (high LDL; low HDL) ([facility]) Essential tremor Left hip pain Muscle cramping Neurogenic claudication due to lumbar spinal stenosis Pain in left lumbar region of back Personal history of nicotine dependence Shortness of breath on exertion Medications: Current Outpatient Medications: albuterol HFA 90 mcg/act inhaler, Inhale 2 puffs every 4 (four) hours if needed for wheezing, Disp:, Rfl: Wuoreiwxnhe-Qkzcaxpne-Yhgsop (Trelegy Ellipta) 200-62.5-25 MCG/ACT aerosol powder , [...] Partner Violence: Unknown (12/21/2023) Received from [facility] [place] [facility] [employer] [facility] Fear of Current [...] 10 Saul Pérez DPM documented in this encounterUniversity of Missouri Children's HospitalTinnqivzdp90-54-0728 Evaluation note* Diagnosis Stage 3a chronic kidney disease (HCC) ([facility]/HCC)- Primary Encounter for Medicare annual wellness exam Pulmonary emphysema, unspecified emphysema type ([facility]/HCC) COPD with exacerbation ([facility]) Stage 3a chronic kidney disease (HCC) ([facility]/HCC)- Primary Pulmonary emphysema, unspecified emphysema type ([facility]/HCC) Subconjunctival hemorrhage of left eye Pulmonary emphysema, unspecified emphysema type ([facility]/HCC)- Primary Stage 3a chronic kidney disease (HCC) ([facility]/HCC) Pulmonary emphysema, unspecified emphysema type (CMS/HCC)- Primary Stage 3a chronic kidney disease (HCC) (CMS/HCC) Impacted cerumen of both ears Impacted cerumen Screening for prostate cancer- Primary Special screening for malignant neoplasm of prostate Centrilobular emphysema ([facility]/HCC) Chronic respiratory failure with hypoxia ([facility]/HCC) Chronic kidney disease, stage 3a (HCC) ([facility]/HCC) Bronchiectasis, uncomplicated (CMS/HCC) Myalgia Unspecified myalgia and myositis Tremor Abnormal involuntary movements Impacted cerumen of both ears Impacted cerumen Pain due to onychomycosis of toenails of both feet- Primary Venous insufficiency Unspecified venous (peripheral) insufficiency documented in this encounter [facility] Cqrpskzkdr23-54-2909 History of Present illness Narrative* Darlene De [...] inhaler 2 puffs, Every 4 hours PRN Qsclzhfsesl-Xlezzzplk-Puluzg (Trelegy Ellipta) 200-62.5-25 MCG/ACT aerosol powder 1 [...] CKD (chronic kidney disease), stage III (HCC) ([facility]) COPD (chronic obstructive pulmonary disease) ([facility]) GOLDEN (dyspnea on exertion) Dyslipidemia (high LDL; low HDL) ([facility]) Essential tremor Left hip pain Muscle cramping [...] pneumonia and COVID vaccines documented in this encounterUniversity of Missouri Children's HospitalZtelzoyybq66-33-3689 Instructions* Patient Instructions* Darlene De Souza NP - 01/06/2025 1:20 PM EDT Check labs Refer to neurology documented in this encounterUniversity of Missouri Children's HospitalKadznqonha42-78-7131 Evaluation note* Diagnosis Stage 3a chronic kidney disease (HCC) ([facility]/HCC)- Primary Encounter for Medicare annual wellness exam Pulmonary emphysema, unspecified emphysema type ([facility]/HCC) COPD with exacerbation ([facility]/HCC) Stage 3a chronic kidney disease (HCC) ([facility]/HCC)- Primary Pulmonary emphysema, unspecified emphysema type [...] ears Impacted cerumen documented in this encounter [facility] HospitalNqclyjytjz24-89-6620 History of Present illness Narrative* Saul Pérez, [...] CKD (chronic kidney disease), stage III (HCC) ([facility]) COPD (chronic obstructive pulmonary disease) (CMS/HCC) GOLDEN [...] hours if needed for wheezing, Disp:, Rfl: Cwcafhhrucb-Fdgovagrw-Nybkdb (Trelegy Ellipta) 200-62.5-25 MCG/ACT aerosol powder , [...] Partner Violence: Unknown (12/21/2023) Received from [facility] [place] [facility] [employer] [facility] Fear of Current [...] length and thickness digits 1 through 10 aSul Pérez DPM documented in this encounterUniversity of Missouri Children's HospitalIirbxuchlc86-04-4648 Evaluation note* Diagnosis Stage 3a chronic kidney disease (HCC) ([facility]/HCC)- Primary Encounter for Medicare annual wellness exam Pulmonary emphysema, unspecified emphysema type ([facility]/HCC) COPD with exacerbation (CMS/HCC) Stage 3a chronic [...] venous (peripheral) insufficiency documented in this encounter [facility] HospitalKpyzdhadzz10-84-1063 History of Present illness Narrative* Linda Dempsey [...] 4 (four) hours if needed for wheezing Loexfwuanrv-Flsllhtky-Mayuxf (Trelegy Ellipta) 200-62.5-25 MCG/ACT aerosol powder Inhale [...] Do you have a medical power of civil rights attorney?: No Objective : BP 120/86 Pulse [...] on October 16, 2024 documented in this encounterUniversity of Missouri Children's HospitalJfhksuuznx84-11-2625 History of Present illness Narrative* Saul Pérez [...] CKD (chronic kidney disease), stage III (HCC) ([facility]) COPD (chronic obstructive pulmonary disease) ([facility]) GOLDEN (dyspnea on exertion) Dyslipidemia (high LDL; low HDL) ([facility]) Essential tremor Left hip pain Muscle cramping Neurogenic claudication due to lumbar spinal stenosis Pain in left lumbar region of back Personal history of nicotine dependence Shortness of breath on exertion Medications: Current Outpatient Medications: albuterol HFA 90 mcg/act inhaler, Inhale 2 puffs every 4 (four) hours if needed for wheezing, Disp:, Rfl: Zsservntuir-Hwaleulrw-Oqfkej (Trelegy Ellipta) 200-62.5-25 MCG/ACT aerosol powder , [...] Partner Violence: Unknown (12/21/2023) Received from [facility] [place] [facility] Fear of Current [...] 10 Saul Pérez DPM documented in this encounterUniversity of Missouri Children's HospitalObfneyodrm38-68-2489 Evaluation note* Diagnosis Stage 3a chronic kidney disease (HCC) ([facility]/HCC)- Primary Encounter for Medicare annual wellness exam Pulmonary emphysema, unspecified emphysema type ([facility]/HCC) COPD with exacerbation ([facility]) Stage 3a chronic kidney disease (HCC) ([facility]/HCC)- Primary Pulmonary emphysema, unspecified emphysema type ([facility]/HCC) Subconjunctival hemorrhage of left eye Pulmonary emphysema, unspecified emphysema type ([facility]/HCC)- Primary Stage 3a chronic kidney disease (HCC) ([facility]/HCC) Pulmonary emphysema, unspecified emphysema type ([facility]/HCC)- Primary Stage 3a chronic kidney disease (HCC) ([facility]/HCC) Impacted cerumen of both ears Impacted cerumen Pain due to onychomycosis of toenails of both feet- Primary Venous insufficiency Unspecified venous (peripheral) insufficiency documented in this encounter [facility] HospitalFkjxdxkzrv14-89-7208 History of Present illness Narrative* Linda Dempsey NP - 07/08/2024 10:33 AM EDTAssociated Problem(s): Stage 3a chronic kidney disease (HCC) ([facility]/HCC) CKD 3, stable. Renal function stable. Avoid nephrotoxic agents. * Linda Dempsey NP - 07/08/2024 10:31 AM EDTAssociated Problem(s): COPD with emphysema ([facility]/HCC) Currently taking Trelegy daily Uses Albuterol PRN [...] Visit Stage 3a chronic kidney disease (HCC) ([facility]) CKD 3, stable. Renal function stable. Avoid nephrotoxic agents. COPD with emphysema ([facility]) - Primary Currently taking Trelegy daily Uses [...] 6.5 % otic solution documented in this [facility]09-09-2024 Instructions* Patient Instructions* Linda Dempsey NP - 07/08/2024 10:00 AM EDT Keep up the good work! Call if you need anything! documented in this encounterUniversity of Missouri Children's HospitalQxykdibdyw32-02-0228 NoteCardiology Clinic Note Chief Complaint: follow up [...] history of COPD (chronic obstructive pulmonary disease) ([facility]), Emphysema of lung ([facility]), and Hypertension. Surgical History He has a [...] will check lipid panel (more content not included)...[facility]09-08-2023 Note Patient here for 6 mo follow up abnormal stress test, dyspnea, and hypertension. Still denies chest pain. PCP manages his COPD/emphysema. He had CT chest and lab work a few weeks ago.[facility]03-29-2023 Note Cardiology Clinic Note Chief Complaint: [...] a fixed inferior defect, which could be financial services sales representative of a prior infarct with scar versus artifact. I discussed with him options, including invasive coronary angiography for delineation of coronary anatomy and ruling out of critical lesions. Patient understands the procedure, and he defers any invasive procedures at this ti (more content not included)...[facility]08-24-2022 NotePROCEDURE: XR HIP LT 2 3V [...] Electronically authenticated by: MARSHALL DAVISON Date: 2022-06-22 08:42[facility]08-19-2022 Evaluation note* Encounter Date Diagnosis [...] if symptoms worsen or new symptoms occur. [employer] Other 05-10-2022 Evaluation note* Encounter Date Diagnosis [...] Follow-up with the patient in 3 months [employer] Other Evaluation note* Diagnosis Stage 3a chronic [...] Date Peripheral neuropathy acute Alex 2024 2:28pm [facility] Work Phone: History general Narrative - Reported* [...] History TEETH Hospitalization History LUNG INFECTION 2013 [employer] Other Hospital Discharge instructionsAmbulatory Orders* Referral to Pulmonology Time Frame: 07/07/25, Location: None Selected [facility] Work Phone: Reason for referral (narrative)No reason for referral information availableHolzer Health System Work Phone: Summary Purpose Family History No [...] section and content) DATE CREATED AUTHOR 04/19/2018 [facility] DATE CREATED AUTHOR AUTHOR'S ORGANIZ ATION 11/11/2022 [facility] DATE CREATED AUTHOR AUTHOR'S ORGANIZ ATION 07/08/2023 [facility] DATE CREATED AUTHOR AUTHOR'S ORGANIZ ATION 07/13/2025 [facility] dical Specialists EPIC REASON FOR VISIT (unrecogniz ed section and content) Reason Comments Toenail Care Non DM Nails Reason Comments Follow-up 3M0 Reason Comments Toenail Care Non dm nail care Reason Comments Tremors Specialty Diagnoses / Procedures Referred By Contac t Referred To Contact Neurology Diagnoses Tremor Procedures ME OFFICE/OUTPATIENT [facility] MDM 60 MINUTES Darlene De Souza NP [address] [place] [address] Phone: tel: fax: Arnulfo Kwok, [address] [place] [phone] Phone: tel: fax: Referral ID Status Reason Start Date Expiration Date V isits Requested Visits Authorized [id number] Closed Consult and Treat 01/06/2025 07/05/2025 1 1 Reason Comments Follow-up Reason Comments Med Refill Reason Comments Toenail Care Reason Onset Date Comments Med Refill 05/07/2025 Care Teams (unrecognized sec tion and content) Interventional Technologist Relationship Specialty Start Date End Date Demetrius Dorado MD [address] [place] [address] PCP - General Family Medicine 06/05/24 Linda Dempsey NP [address] [place] [address] Nurse Practitioner Family Medicine 06/05/24 Interventional Technologist Relationship Specialty Start Date End Date Demetrius Dorado MD [address] [place] [address] PCP - General Family Medicine 06/05/24 Linda Dempsey NP [address] [place] [address] Nurse Practitioner Family Medicine 06/05/24 Interventional Technologist Relationship Specialty Start Date End Date Demetrius Dorado MD [address] [place] [address] PCP - General Family Medicine 06/05/24 Linda Dempsey NP [address] [place] [address] Nurse Practitioner Family Medicine 06/05/24 Interventional Technologist Relationship Specialty Start Date End Date Demetrius Dorado MD [address] [place] [address] PCP - General Family Medicine 06/05/24 Linda Dempsey NP [address] [place] [address] Nurse Practitioner Family Medicine 06/05/24 Interventional Technologist Relationship Specialty Start Date End Date Demetrius Dorado MD [address] [place] [address] PCP - General Family Medicine 06/05/24 Linda Dempsey NP [address] [place] [address] Nurse Practitioner Family Medicine 06/05/24 Interventional Technologist Relationship Specialty Start Date End Date Demetrius Dorado MD [address] [place] [address] PCP - General Family Medicine 06/05/24 Linda Dempsey NP [address] [place] [id number] Nurse Practitioner Family Medicine 06/05/24 Interventional Technologist Relationship Specialty Start Date End Date Demetrius Dorado MD [address] [place] [phone] PCP - General Family Medicine 06/05/24 Linda Dempsey NP [address] [place] [address] Nurse Practitioner Family Medicine 06/05/24 Interventional Technologist Relationship Specialty Start Date End Date Demetrius Dorado MD [address] [place] [phone] PCP - General Family Medicine 06/05/24 Linda Dempsey NP [address] [place] [address] Nurse Practitioner Family Medicine 06/05/24 Interventional Technologist Relationship Specialty Start Date End Date Demetrius Dorado MD [address] [place] [phone] PCP - General Family Medicine 06/05/24 Linda Dempsey NP [address] [place] [phone] Nurse Practitioner Family Medicine 06/05/24 Interventional Technologist Relationship Specialty Start Date End Date Demetrius Dorado MD [address] [place] [phone] PCP - General Family Medicine 06/05/24 Linda Dempsey NP [address] [place] [phone] Nurse Practitioner Family Medicine 06/05/24 Interventional Technologist Relationship Specialty Start Date End Date Demetrius Dorado MD [address] [place] [phone] PCP - General Family Medicine 06/05/24 Linda Dempsey NP [address] [place] [phone] Nurse Practitioner Family Medicine 06/05/24 Interventional Technologist Relationship Specialty Start Date End Date Demetrius Dorado MD [address] [place] [phone] PCP - General Family Medicine 06/05/24 Linda Dempsey NP [address] [place] [address] Nurse Practitioner Family Medicine 06/05/24 Interventional Technologist Relationship Specialty Start Date End Date Demetrius Dorado MD [address] [place] [address] PCP - General Family Medicine 06/05/24 Linda Dempsey NP [address] [place] [phone] Nurse Practitioner Family Medicine 06/05/24 Interventional Technologist Relationship Specialty Start Date End Date Demetrius Dorado MD [address] [place] [phone] PCP - General Family Medicine 06/05/24 Linda Dempsey NP [address] [place] [phone] Nurse Practitioner Family Medicine 06/05/24 Interventional Technologist Relationship Specialty Start Date End Date Demetrius Dorado MD [address] [place] [phone] PCP - General Family Medicine 06/05/24 Linda Dempsey NP [address] [place] [address]1002 Nurse Practitioner Family Medicine 06/05/24 Interventional Technologist Relationship Specialty Start Date End Date Demetrius Dorado MD [address] [place] [address] PCP - General Family Medicine 06/05/24 Linda Dempsey NP [address] [place] [phone] Nurse Practitioner Family Medicine 06/05/24 Interventional Technologist Relationship Specialty Start Date End Date Demetrius Dorado MD [address] [place] [phone] PCP - General Family Medicine 06/05/24 Linda Dempsey NP [address] [place] [phone] Nurse Practitioner Family Medicine 06/05/24 Team Status: Active Member Role Status Dates [facility] Primary Care Provider Activ e Team Status: Inactive Member Role Status Dates Alonso Adams DO Attending Provider Active Sta rt: April 21, 2025 End: April 21, 2025 [facility] Primary Care Provider Activ e Start: April 21, 2025 End: April 21, 2025 Team Status: Inactive Member Role Status Dates Katy Floyd APRN Attending Provider Active Start: May 27, 2025 End: May 27, 2025 [facility] Primary Care Provider Activ e Start: May 27, 2025 End: May 27, 2025 Interventional Technologist Relationship Specialty Start Date End Date Demetrius Dorado MD [address] [place] [phone] PCP - General Family Medicine 06/05/24 Linda Dempsey NP [address] [place] [phone] Nurse Practitioner Family Medicine 06/05/24 Team Status: Inactive Member Role Status Dates [facility] Primary Care Provider Activ e Start: July 07, 2025 End: July 07, 2025 Darlene De Souza Attending Provider Active Start: July 07, 2025 End: July 07, 2025 Interventional Technologist Relationship Specialty Start Date End Date Demetrius Dorado MD [address] [place] [phone] PCP - General Family Medicine 06/05/24 Linda Dempsey NP [address] [place] [address] Nurse Practitioner Family Medicine 06/05/24 Interventional Technologist Relationship Specialty Start Date End Date Demetrius Dorado MD [address] [place] [phone] PCP - General Family Medicine 06/05/24 Linda Dempsey NP [address] [place] [address] Nurse Practitioner Family Medicine 06/05/24 Goals (unrecognized [...] BE BASED ON THE PRIMARY CLINICAL RECORDS. [employer] provides no warranty or guarantee of the accuracy or completeness of information in this document.
== END 2025-07-18 15:17 | disposition home or self-care (01) ==
LOC: CT 15:16
PROVIDERS: PCP Nurse Practitioner; Visit Provider Nurse Practitioner
DX: R91.8 Other nonspecific abnormal finding of lung field (principal); J47.9 Bronchiectasis, uncomplicated
CPT/HCPCS: 71260; Q9966

== ENCOUNTER 2025-08-26 13:51 | Outpatient (OUT) | payer MEDICARE, OTHER, SELFPAY ==
--- OUTSIDE RECORDS SUMMARY | 2024-06-25 07:00 | XMS_ITS ---
Author Organization [facility] in [place] Address [address] [place] [address] Care Team Providers Care Transit Operator Name Role Phone Darlene De Souza CNP Primary Care Provider Unavail melissa Mckee [place] Unavailable [phone] REASON FOR VISIT Discuss Oxygen Encounters Encounter Location Date Provider Diagnosis Pulmonary Medicine [place] [address] [place] [address] 06/25/2024 Chandler Mckee Plan Of Treatment No Information Progress Notes * ARROYOSpencer RDOB:1950 (75 yo M)Acc No.[id number]:06/25/2024 UNLOCKED PROGRESS NOTE Progress Note Patient: Crispin DELGADO Spencer Soria :?Chandlerlisy Mckee BENITOOB:1950???Age:74 Y ???Sex:MaleDate:06/25/2024hone:[phone]: [address] [place] [id number]:Darlene De Souza CNP Subjective: * Chief Complaints: * 1 . Discuss Oxygen. * Medical History: Objective: * Vitals: Assessment: Plan: * Treatment: * * Electronic signature of Chandler Mckee DO on 08/26/2025 at 01:57 PM EDTSign off status: PendingVisit Status:?OFF CANC (OFFICE CANCEL) * Provider: Moises Mckee DO Date: 0 06/25/2024 Generated for Printing/Faxing/eTransmitting on:?08/26/2025 01:57 PM EDT
--- OUTSIDE RECORDS SUMMARY | 2024-07-10 09:30 | XMS_ITS ---
Author Organization [facility] in [place] Address [address] [place] [address] Care Team Providers Care Cut Off Operator Scorer Name Role Phone Darlene De Souza CNP Primary Care Provider Unavail melissa Arias Chandler Unavailable [phone] REASON FOR VISIT 1 month f/u COPD/hypoxemia Encounters Encounter Location Date Provider Diagnosis Pulmonary Medicine [place] [address] [place] [address] 07/10/2024 Chandler Mckee Plan Of Treatment No Information Progress Notes * Spencer ARROYO RDOB:1950 (75 yo M)Acc No.[id number]:07/10/2024 UNLOCKED PROGRESS NOTE Follow Up Patient: Crispin DELGADO Spencer Soria :?ChandlerBENITO GaliciaOB:1950???Age:74 Y ???Sex:MaleDate:4Phone:[phone]: [place] COLVIN [id number]:Darlene De Souza CNP Subjective: * Chief Complaints: * 1 . 1 month f/u COPD/hypoxemia. * Medical History: Objective: * Vitals: Assessment: Plan: * Treatment: * * Electronic signature of Chandler Mckee DO on 08/26/2025 at 01:57 PM EDTSign off status: PendingVisit Status:?R/S (Rescheduled) * Provider: Moises Mckee DO Date: 0 07/10/2024 Generated for Printing/Faxing/eTransmitting on:?08/26/2025 01:57 PM EDT
--- OUTSIDE RECORDS SUMMARY | 2025-08-26 13:58 | XMS_ITS | Patient Health Record ---
Author Organization [facility] in [place] Address [address] [place] [address] Care Team Providers Care Wharf Attendant Name Role Phone Darlene De Souza CNP Primary Care Provider Unavail able Darlene Christensen Unavailable [phone] Allergies No Known Allergies Results Component Value Reference Range Notes CT lung screening low-dose Reviewed date:10/16/2024 07:48:02 AM Interpretation: Performing Lab: Notes/Report: Source Facility: [place] [address] CT Scan Report Signed Patient: SPENCER ARROYO MR#: [id number] : 1950 Acct:[id number] Age/Sex: 74 / M ADM Date: 10/11/24 Loc: CT Attending Dr: Darlene Christensen D.O. Ordering Physician: Darlene Christensen D.O. Date of Service: 10/11/24 Procedure(s): CT lung screening low-dose Accession Number(s): [id number] cc: LINDA GERARD [place] [address] Patient Name: SPENCER ARROYO MRN: [facility]:[id number] date: 1950 Sex: M Assigned Patient Location: CT Current Patient Location: Accession/Order Number: [id number] Exam Date: 10/11/2024 10:05 Report Date: 10/14/2024 [...] Signed By: 10/14/24 1132 DD/ 1130 TD/TT: Magazine Supervisor: CT chest toya brown Reviewed date:01/28/2025 08:07:43 AM Interpretation: Performing Lab: Notes/Report: Source Facility: [facility]-[address] [place] [address] [place] [address] CT Scan Report Signed with Marquis Patient: SPENCER ARROYO MR#: [id number] : 1950 Acct:[id number] Age/Sex: 74 / M ADM Date: 01/08/25 Loc: CT Attending Dr: Darlene Christensen D.O. Ordering Physician: Darlene Christensen D.O. Date of Service: 01/08/25 Procedure(s): CT chest wo con Accession Number(s): [id number] cc: LINDA GERARD ADDENDUM The [address] [address] This is an addendum Reassessment with comparison examination 10/11/2024 nodular density in the left upper lobe similar in size and distribution demonstrated. This is stable compared to the 3 month follow-up examination. At this is considered a category 2 benign finding with twelve-month follow-up assessment recommended. Impression dictated by: Tonny Aguilar M.D.01/21/2025 3:21 PM Dictation Location: [place] [address] Electronically authenticated by: [id number] Y Date: 01/21/2025 15:21 Patient Name: SPENCER ARROYO MRN: [facility]:[id number] date: 1950 Sex: M Assigned Patient Location: CT Current Patient Location: CT Accession/Order Number: [id number] Exam Date: 01/21/2025 15:11 Report Date: 01/21/2025 15:21 At the request of: DARLENE CHRISTENSEN DO Procedure: CT chest wo con The [place] [id number] Patient Name: SPENCER ARROYO MRN: [facility]:[id number] date: 1950 Sex: M Assigned Patient Location: CT Current Patient Location: CT Accession/Order Number: [id number] Exam Date: 01/08/2025 18:00 Report Date: 01/08/2025 [...] Tonny Aguilar M.D.01/08/2025 6:07 PM Dictation Location: [place] [address] Electronically authenticated by: [id number] Y Date: 01/08/2025 18:07 Addendum Dictated By: Tonny Aguilar D.O. Addendum Signed By: 01/21/25 1 524 Addendum Cosigned By: DD/ TD/TT: / [address] [address] Patient Name: SPENCER ARROYO MRN: [facility]:[id number] date: 1950 Sex: M Assigned Patient Location: CT Current Patient Location: CT Accession/Order Number: [id number] Exam Date: 01/08/2025 18:00 Report Date: 01/08/2025 [...] Tonny Aguilar M.D.01/08/2025 6:07 PM Dictation [facility] Electronically authenticated by: [id number] Y Date: 01/08/2025 18:07 Dictated By: Tonny Aguilar D.O. Signed By: 01/08/251809 DD/ 06 TD/TT: Magazine Supervisor: Histoplasma capsulatum Abs. Reviewed date:03/31/2025 10:19:34 AM Interpretation: Performing Lab: Notes/Report: [facility] , Histoplasma Mycelial CF Ab. Negative Neg:<1:2 Histoplasma Yeast CF AbNegativeNeg:<1:2 Performed at: [facility] [address] [place], [place] [id number] It Security Architect: Whit Weeks MD, Phone: [phone] Performing Lab:see [facility] LBBlastomyces Abs, Qn, DID Reviewed date:03/31/2025 10:19:40 AM Interpretation: Performing Lab: Notes/Report: [facility] ,Blastomyces Abs, Qn, DIDNegativeNeg:<1:[address] [place] [phone] It Security Architect: Whit Weeks MD, Phone: [phone] Performed at: [facility] Performing Lab:see [facility] LBAspergillus Ab, Qn, DID Reviewed date:03/31/2025 10:19:38 AM Interpretation: Performing Lab: Notes/Report: [facility] ,Aspergillus fumigatusNegativeNeg:<1:1Aspergillus flavusNegativeNeg:<1:1 Aspergillus nigerNegativeNeg:<1:1Performing Lab:[facility] LB[facility] Chest w/o contrast Reviewed date:04/07/2025 08:41:24 AM Interpretation: Performing Lab: Notes/Report: CT Chest w/o contrast Reviewed date:01/09/2025 07:56:31 AM Interpretation: Performing Lab: Notes/Report: HISTOPLASMA ANTIGEN, URINE Reviewed date:05/21/2025 11:42:43 AM Interpretation: Performing Lab: Notes/Report: TB GOLD PLUS, QUANTIFERON Reviewed date:05/21/2025 11:43:03 AM Interpretation: Performing Lab: Notes/Report: HISTOPLASMA MYCELIAL AB, BLOOD Reviewed date:05/21/2025 11:43:46 AM Interpretation: Performing Lab: Notes/Report: BLASTOMYCIS MYCELIAL AB, BLOOD Reviewed date:05/21/2025 11:44:06 AM Interpretation: Performing Lab: Notes/Report: ASPERGILLUS ABS (FLAVUS,FUMIGATUS, NIGER) QUAL Reviewed date:05/21/2025 11:44:29 AM Interpretation: Performing Lab: Notes/Report: JANNY (ANGIOTENSIN CONVERTING ENZYME) Reviewed date:05/21/2025 11:43:26 AM Interpretation: Performing Lab: Notes/Report: CT Chest Low Dose for Screening* Reviewed date:10/14/2024 11:41:00 AM Interpretation: Performing Lab: Notes/Report: QuantiFERON-TB Gold Plus Reviewed date:03/27/2025 07:32:26 AM Interpretation: Performing Lab: Notes/Report: [facility] ,QuantiFERON Incubation. Incubation performed. Reference Range: . QuantiFERON-TB Gold PlusNegativeNegative It Security Architect: Sin Goss PhD, Phone: [phone] reference range is an Antigen minus Nil result of <0.35 (ATS/IDSA/CDC Clinical Practice Guidelines, 2017). The individuals should be considered for additional testing Infection with M tuberculosis is unlikely, but high risk [address] [place] [phone] Performed at: [facility] Chemiluminescence immunoassay methodology IU/mL. No response to M tuberculosis antigens detected. QuantiFERON CriteriaComment. QuantiFERON-TB Gold Plus is a qualitative indirect test for subtracting the Nil value from either TB antigen (Ag) The QuantiFERON-TB Gold Plus result is determined by radiography, and other medical and diagnostic evaluations. value. The Mitogen tube serves as a control for the test. intended for use in conjunction with risk assessment, M tuberculosis infection (including disease) and is QuantiFERON TB1 Ag Value0.04. IU/mLQuantiFERON TB2 Ag Value0.04. IU/mL QuantiFERON Nil Value0.04. IU/mLQuantiFERON Mitogen Value7.94. IU/mLPerforming Lab:see note - [facility] LBCT chest wo con Reviewed date:04/07/2025 03:56:29 PM Interpretation: Performing Lab: Notes/Report: Source Facility: [place] [address] [place] [address] CT Scan Report Signed Patient: SPENCER ARROYO MR#: [id number] : 1950 Acct:[id number] Age/Sex: 75 / M ADM Date: 04/04/25 Loc: CT Attending Dr: Darlene Christensen D.O. Ordering Physician: Darlene Christensen D.O. Date of Service: 04/04/25 Procedure(s): CT chest wo con Accession Number(s): [id number] cc: Physician,Non-Staff Cecy [address] [address] Patient Name: SPENCER ARROYO MRN: [facility]:[id number] date: 1950 Sex: M Assigned Patient Location: CT Current Patient Location: CT Accession/Order Number: [id number] Exam Date: 04/04/2025 15:00 Report Date: 04/04/2025 15:18 At the request of: DARLENE CHRISTENSEN DO Procedure: CT chest wo con CT CHEST WITHOUT CONTRAST COMPARISON: 01/08/2025 and 10/11/2024 CLINICAL DATA: Follow-up pulmonary nodules. Shortness of breath with exertion. Spiral axial unenhanced images were obtained through the chest. Images were reviewed using both narrow and wide window settings. This CT exam was performed using one or more following dose reduction techniques: Automated exposure control, adjustment of the mA and/or kV according to patient size, or use of iterative reconstruction technique. The heart is normal in size. There is no pericardial effusion. There is minor coronary artery disease. No aortic aneurysm is seen. There is plaque at the aortic arch and proximal great vessels. There are calcified subcarinal and paratracheal lymph nodes. There are also noncalcified lymph nodes, largest in the prevascular region where there is increase in size from short axis dimension of 10 mm to 13 mm. Small hilar lymph nodes are also suspected. Minor gynecomastia is seen. The bony structures are osteopenic. There is slight dextroscoliotic curvature as well degenerative changes at the spine. Is obstructive lung disease with airspace lucencies and subpleural blebs. There is similar parenchymal change that may be scarring at the medial right lower lobe. There is also additional similar atelectasis or scarring at both bases. No new consolidation is visualized. No pleural effusion or pneumothorax is seen. The small irregular nodule at the left upper lobe on the prior is resolving. There is a second tiny nodular area lateral to it which is unchanged. There are 2 new irregular nodular areas within the left upper lobe (axial images 46 and 49) measuring 12 mm and 9 mm respectively. There is a calcified granuloma at the lateral right costophrenic angle. A potential tiny developing nodular density is also seen at the lateral right middle lobe (axial image 65). No other pulmonary nodularity is noted. Limited cuts through the upper abdomen show similar hepatic hypodensities, possibly cysts. There is moderate fluid within the stomach. CT/CT chest wo con IMPRESSION: ADVANCED OBSTRUCTIVE LUNG DISEASE WITH AREAS OF SCARRING AND/OR ATELECTASIS. RESOLVING LEFT UPPER LOBE NODULE SEEN PREVIOUSLY THOUGH 2 NEW IRREGULAR NODULAR OPACITIES DEVELOPING IN THE SAME LOBE AND TINY DEVELOPING NODULE AT THE RIGHT MIDDLE LOBE. CONTINUED SHORT INTERVAL FOLLOW-UP IS SUGGESTED. SLIGHT INCREASE IN SIZE OF PREVASCULAR LYMPH NODE. Impression dictated by: Caren Acuña M.D. 04/04/2025 3:18 PM Dictation Location: [place] [address] Electronically authenticated by: [id number] Y Date: 04/04/2025 15:18 Dictated By: Caren Acuña M.D. Signed By: 04/04/25 1521 DD/ 1518 TD/TT: Magazine Supervisor:Histoplasma Gal'sebas Ag Ur Reviewed date:03/31/2025 10:19:42 AM Interpretation: Performing Lab: Notes/Report: URINE [facility] ,Histoplasma Gal'sebas Ag UrNegative<0.2 ng/mL [address] [place] [phone] It Security Architect: Whit Weeks MD, Phone: [phone] Performed at: [facility] Performing Lab:see note - [facility] LBAngiotensin-Converting Enzyme Reviewed date:03/26/2025 03:39:47 PM Interpretation: Performing Lab: Notes/Report: [facility] ,Angiotensin-Converting Vzbond3402-63 U/L Performed at: [facility] It Security Architect: Sin Goss PhD, Phone: [phone] [address] [place], [place] [phone] Performing Lab:see note - [facility] LB Reason For Referral No Information Medications Medication SIG (Take, Route, Frequency, Duration) Notes Start Date End Date Status Trelegy Ellipta 200-62.5-25 MCG/ACT 1 puff Inhal ation Once a day ActivePropranolol HCl ER 60 MGOral; Duration: 30 DaysActiveVitamin D3 125 MCG (5000 UT)TAKE 1 CAPSULE (125 MCG) BY MOUTH DAILY Oral; Duration: 30 DaysActive Vitamin B12 1000 MCG1 tablet Orally Once a day; Duration: 30 day(s)03/25/2025 ActiveAlbuterol Sulfate HFA 108 (90 Base) MCG/ACTInhalation; Duration: 17 Days Active Immunizations Vaccine Route Administration Date Status Comme nts Flu, Fluad (98442) 65 yrs + High Dose Seasonal (5036-3349) Unknown 09/29/2023 Administered Flu, Fluad (09888) 65 yrs + Trivalent (9663-4637)Ofregix8008/02/2024dministered Flu, Fluad (56506) 65 yrs+, single-dose syringe (0734-7029)Onloppu1408/22/2023 AdministeredModerna COVID-19 Single Dose 25 mcg/0.25 aKVwctnzv08/04/2024 AdministeredPneumococcal (Pneumovax 23)Qdmeclc4708/06/2020AdministeredPneumococcal (Prevnar 20)Bkuqlew0808/02/20247593BahyfjewvgfeACWR-PCQ-8 (COVID 19 Moderna - Booster 0.25mL)Rumvzgj96/23/2021Administered Social History Tobacco Use: Social History Observation Description Date Details (start date - stop date) Former Smoker NA - NA Tobacco Control (Standard) Question Answer Notes Tobacco use: Former smoker How long has it been since you last smoked?Greater than 10 yearsAdditional Findings: Tobacco lxh-ozyaMd-lzaqhgsd cigarette smoker (10-19/day) Problems Problem Type SNOMED Code ICD Code Onset Dates Problem Status W/U Status Risk Notes Problem Secondary polycythemia (11213493) Seconda ry polycythemia (D75.1) ActiveconfirmedProblemCentrilobular emphysema (98134540)Centrilobular emphysema (J43.2)ActiveconfirmedProblemChronic respiratory failure (03339583)Chronic respiratory failure with hypoxia (J96.11)ActiveconfirmedProblemLong-term current use of inhaled steroid (824126233)intermediate card tender (current) use of inhaled steroids (Z79.51)ActiveconfirmedProblemBronchiectasis (15082208)Bronchiectasis (J47.9) ActiveconfirmedProblemMultiple pulmonary nodules (745997110)Multiple pulmonary nodules (R91.8)ActiveconfirmedProblemEx-tobacco user (finding) (920185862) History of tobacco abuse (Z87.891)ActiveconfirmedProblemCalcified lymph nodes (564885142)Calcified lymph nodes (I89.8)Activeconfirmed Vital Signs Heart Rate 67 /min 03/25/2025 [...] BMI 29.16 kg/m2 03/25/2025 RA Activity/Res ting Encounters Encounter Location Date Provider Diagnosis [facility] [address] [place] [address] 09/24/2024 Darlene Samsa Centrilobular emphys willard J43.2 ; Chronic respiratory failure with hypoxia J96.11 ; Bronchiectasis J47.9 ; Secondary polycythemia D75.1 ; Calcified lymph nodes I89.8 ; History of tobacco abuse Z87.89 ; Encounter for screening for malignant neoplasm of respiratory organs Z12.2 and intermediate card tender (current) use of inhaled steroids Z79.51 [facility] [address] [place] [address] 03/25/2025 Darlene Samsa Centrilobular emphys willard J43.2 ; Multiple pulmonary nodules R91.8 ; Chronic respiratory failure with hypoxia J96.11 ; Bronchiectasis J47.9 ; Secondary polycythemia D75.1 ; Calcified lymph nodes I89.8 ; History of tobacco abuse Z87.891 and group home (current) use of inhaled steroids Z79.51 [facility] [address] [place] [address] 09/11/2024 [facility] Pulmonary Medicine [address] [facility] [place] [address]/08/2024 [facility] [address] [facility] [place] [address] 10/[facility] R91.8[facility] [facility] [place] [address]/01/2025[facility] [address] [facility] [place] [address]/06/2025[facility] Multiple pulmonary nodules R91.8[facility] [place] [address]/08/2025[facility] Assessments Encounter Date Diagnosis (ICD Code) Assessment [...] as needed. He was advised to avoid dextromethorphan-containing products as we do not want to suppress the cough. At the end of the visit, the patient stated that he needsTrelegy samples as it is too expensive [facility] (~ $400/month). I stated that I cannot give him samples for maintenance use. He was instructed to obtain his insurance formulary for me to review; with this, I can see what inhaler or combination of inhalers can be prescribed that may be cheaper for him (e.g. Breztri, Spiriva + Symbicort). Other than this, he denies needing any additional therapy. 4Chronic respiratory failure with hypoxia (ICD-10 - J96.11) Vvxs-kl-hnws encounter performed with the patient to document continued need for supplemental oxygen (O2). -Qualification testin06/12/2024 -Flow & directions: 2L/min with activity and @ HS -Patient voices adherence to recommended usage: He uses it with ambulation, but claims he was nevertold to use it @ HS -Symptom control [...] increase the flow to 3L/min with activity. 03/25/2025entrilobular emphysema (ICD-10 - J43.2) He remains on Trelegy and states it is working okay for him for now. Has had 2 flares over the past year now. Will monitor for now. May need to look into Ohtuvayre if symptomatic next visit. Improving O2 compliance may also improve dyspnea. 03/25/2025Multiple pulmonary nodules (ICD-10 - R91.8) As per HPI. CLOTILDE more solidified medial nodule and new inferior ~1cm area. Differential includes infection, inflammation, and neoplasm. Prior GGO resolved. Changes from 01/08/2025 compared to 10/11/2024, and was not present on 06/13/2023. Residua inflammation scarring down vs. new area? Utilizing a solitary pulmonary nodule risk calculator ([facility] Model), risk of malignancy of the nodule/largest [...] further plan of care dependent on results. 10/16/2024Multiple pulmonary nodules (ICD-10 - R91.8)04/07/2025Multiple pulmonary nodules (ICD-10 - R91.8)03/25/2025hronic respiratory failure with hypoxia (ICD-10 - J96.11) Ygpq-id-odsw encounter performed with the patient to document [...] losing O2 unless he improves his compliance. 11/26/2024Bronchiectasis (ICD-10 - J47.9) Right lower lobe bronchiectasis noted on prior CT 06/13/2022 and 02/22/2022. Patient is having more mucus production. He claims that this is a flare , but will need a watch it carefully to make sure that he is not developing more symptomatic bronchiectasis. For now, discussed the need to promote expectoration and will begin this with guaifenesin. 09/24/2024Secondary polycythemia (ICD-10 - D75.1) Hb 17.1g/dL on PFT 06/07/2024 Elevated hemoglobin is consistent with polycythemia secondary to chronic hypoxic respiratory failure associated with emphysema. 5Bronchiectasis (ICD-10 - J47.9) Right lower lobe bronchiectasis noted on prior CT 06/13/2022 and 02/22/2022. History of increased mucus production. Continue guaifenesin. 4Calcified lymph nodes (ICD-10 - I89.8) Incidental finding noted on chest CT. 03/25/2025Secondary polycythemia (ICD-10 - D75.1) Hb 17.1g/dL on PFT 06/07/2024 Polycythemia secondary to chronic hypoxic respiratory failure associated with emphysema. 09/24/2024History of tobacco abuse (ICD-10 - Z87.891) 1ppd [...] restarting the LDCT program. Patient voiced agreement. 5Calcified lymph nodes (ICD-10 - I89.8) Incidental finding noted on chest CT. 03/25/2025History of tobacco abuse (ICD-10 - Z87.891) 1ppd [...] restarting the LDCT program. Patient voiced agreement. 09/24/2024Encounter for screening for malignant neoplasm of respiratory [...] if needed. Patient was counseled on smoking cessation/continued tobacco abstinence. 09/24/2024Long term (current) use of inhaled steroids (ICD-10 - Z79.51) Patient was counseled to rinse & gargle with water after inhaled corticosteroid use. 03/25/2025Long term (current) use of inhaled steroids (ICD-10 - Z79.51) Patient was counseled to rinse & gargle with water after inhaled corticosteroid use. Plan Of Treatment Future Test Test Name Order Date CT Chest w/o contrast 05/04/2025 Insurance Providers Payer Name Payer Address Payer Phone Subscriber Number Group Number Insured Name Patient Relationship to Insured Coverage Start Date Coverage End Date [place]IC[place] [address] [place] [address] [id number] Arroyo, ByronSelf - patient is the [id number] MEDICARE SUPPLEMENTPO [address] [place] [id number], ByronSelf - patient is the insured Medical (General) History Medical History History ICD Code Centrilobular emphysema J43.2 Bronchiectasis J47.9 Calcified lymph nodes I89.8 Secondary polycythemia D75.1 History of tobacco abuse Z87.891 Multiple pulmonary nodules R91.8 Surgical History Surgery Date(Month/Year) tonsillectomy vasectomy
--- OUTSIDE RECORDS SUMMARY | 2025-08-26 13:59 | XMS_ITS | Clinical Summary ---
Author Organization [facility] Address [address] [place] [address] Care Team Providers Care Supervisor Newspaper Deliveries Name Role Phone Shaikh MOIZ Knight Primary Care Provider [phone] Allergies No known active allergies Medications MedicationSigDispense QuantityRefillsLast FilledStart DateEnd DateStatus albuterol 90 mcg/actuation inhaler INHALE 2 TABLETS BY MOUTH EVERY 4 HOURS NEEDED FOR SHORTNESS OF BREATH 12/12/2022ctive Trelegy Ellipta 200-62.5-25 mcg blister with device INHALE 1 PUFF BY MOUTH NYESYHVA39/12/2022ctive Family History Medical HistoryRelationNameCommentsNo Known ProblemsFatherNo Known Problems MotherRelationNameStatusCommentsFatherMother Social History Tobacco UseTypesPacks/DayYears UsedDateSmoking Tobacco: SdygvrNejpfplkgl012 10/1963 - 10/2013Smokeless Tobacco: Never Tobacco Cessation:Counseling Given: Not Answered Alcohol UseStandard Drinks/WeekCommentsNot Currently0 (1 standard drink = 0.6 oz pure alcohol)UT Safety & EnvironmentAnswerDate RecordedFear of Current or Ex-PartnerNot on file12/21/2023Emotionally AbusedNot on file12/21/2023hysically AbusedNot on file12/21/2023Sexually AbusedNot on file12/21/2023hysically or Sexually AbusedNot on file12/21/2023Sex and Gender InformationValueDate Recorded Sex Assigned at BirthNot on fileLegal NnxBmne1804/28/2022 12:05 AM EDTGender IdentityNot on fileSexual OrientationNot on file Last Filed Vital Signs Vital SignReadingTime TakenCommentsBlood Yvlcwlql361/8807/07/2023 2:31 PM EDT Qkaui564707/07/2023 2:31 PM EDTTemperature--Respiratory Rate--Oxygen Xvzkerrmvr15% 07/07/2023 2:31 PM EDTInhaled Oxygen Concentration--Wfqzrr58.3 kg (208 lb) 07/07/2023 2:31 PM CAWToxtib960.9 cm (6')07/07/2023 2:31 PM EDTBody Mass Index 28.2109 2:31 PM EDT Plan of Treatment Health MaintenanceDue DateLast DoneCommentsCT Jkriqsmzusma1950olonoscopy 1950olorectal Cancer Dssvbkotg1950FIT-DNA1950FIT1950 FOBT1950Medicare Annual Wellness (AWV)1950 9859Ewmfqkiabayqu1950 Depression Xvxnclrmh32/16/1963Adult Qbsdtui2501/12/1973Zoster Vaccines (1 of 2) 2001Fall Risk Wbxagdfvl64/16/2016Pneumococcal Vaccine: 50+ Years (2 of 2 - PCV)/05/2020COVID-19 Vaccine (1 - season)2025Influenza Vaccine (#1)/10/2022, 08/22/2023, 08/01/2022, Additional history existsHIB VaccinesAged OutNo longer eligible based on patient's age to complete this topicHPV VaccinesAged OutNo longer eligible based on patient's age to complete this topicIPV VaccinesAged OutNo longer eligible based on patient's age to complete this topicMeningococcal B VaccineAged OutNo longer eligible based on patient's age to complete this topicMeningococcal VaccineAged OutNo longer eligible based on patient's age to complete this topicRotavirus VaccinesAged Out No longer eligible based on patient's age to complete this topic Insurance Care Teams Team MemberRelationshipSpecialtyStart DateEnd Date Shaikh Knight MD PCP - GeneralFamily Medicine01/24/23
--- OUTSIDE RECORDS SUMMARY | 2025-08-26 14:06 | XMS_ITS | CCD ---
Author Organization [facility] CliniSytx Care Team Providers Care Donkey Doctor Name Role Phone PHYSICIAN, DEFAULT Unavailable Unavailable PHYSICIAN, DEFAULT Unavailable Unavailable LorenaFranklyn sierrarafi Unavailable Rowena Haines Unavailable ANTONIA, BARKER H Attending Unavailable DR YANDY LUNA V Consulting Unavailable RICHELLE HUNTLEY Primary Care Unavailable FAWWAD, BARKER H Admitting Unavailable FAWWAD, BARKER H Referring Unavailable DR MARSHALL VEGA Consulting Unavailable FAWWAD, BARKER H Consulting Unavailable YANDY PINEDA Consulting Unavailable RICHELLE HUNTLEY Primary Care Unavailable FAWWAD, BARKER H Attending Unavailable FAWWAD, BARKER H Admitting Unavailable FAWWAD, BARKER H Consulting Unavailable DR MARSHALL VEGA Consulting Unavailable FAWWAD, BARKER H Attending Unavailable RICHELLE HUNTLEY Primary Care Unavailable FAWWAD, BARKER H Admitting Unavailable FAWWAD, BARKER H Consulting Unavailable FAWWAD, BARKER H Attending Unavailable RICHELLE HUNTLEY Primary Care Unavailable FAWWAD, BARKER H Admitting Unavailable RICHELLE HUNTLEY Primary Care Unavailable DR MARSHALL VEGA Consulting Unavailable FAWWAD, BARKER H Admitting Unavailable FAWWAD, BARKER H Attending Unavailable FAWWAD, BARKER H Consulting Unavailable CANDACEWWAD, BARKER H Attending Unavailable RICHELLE HUNTLEY Primary Care Unavailable DR YANDY LUNA V Consulting Unavailable FAWWAD, BARKER H Admitting Unavailable FAWWAD, BARKER H Consulting Unavailable SEBASTIAN KOHLER Attending Unavailable SEBASTIAN KOHLER Attending Unavailable Ave ROCKWELL, Demetrius Primary Care Provider [phone] Ke JUARES, Linda Unavailable Ke EMAIL MANAGER, Linda Unavailable [phone] Alonso Stanford DO Attending Provider [facility] Primary Care Provide r Katy Floyd APRN Attending Provider Darlene De Souza Attending Provider Demetrius Dorado MD Primary Care Provider Ke EMAIL MANAGER, Linda Unavailable DARLENE DE SOUZA Attending Unavailable SAUL PINEDA Attending Unavailable ALONSO STANFORD Attending Unavailable DARLENE DE SOUZA Referring Unavailable DARLENE DE SOUZA Attending Unavailable SAUL PINEDA Attending Unavailable SAUL PINEDA Attending Unavailable SAUL PINEDA Attending Unavailable LINDA DEMPSEY Attending Unavailnathen e SAUL PINEDA Attending Unavailable Demetrius Dorado MD Primary Care Provider [phone] Ke EMAIL MANAGER, Linda Unavailable [phone] Medications Current Medications MedicationDrug Class(es)DatesSig (Normalized)Sig (Original)[id number] 200 actuat albuterol 0.09 mg/actuat metered dose inhaler (20 sources)beta2-Adrenergic AgonistStart: 80-98-0805hijh 1 puff(s) by inhalation every six hoursAlbuterol Sulfate 90 mcg/actuation HFA aerosol inhaler Active 2 PUFF INHALATION Q6H May 27233921:00am Complies with drug therapy Start: 03-25-2025 End: 56-56-9992glng 2 puff(s) by inhalation every six hours for wheezing albuterol HFA 90 mcg/act inhaler Indications: Pulmonary emphysema, unspecified emphysema type (HCC)Inhale 2 puffs every 6 (six) hours if needed for wheezing or shortness of breath 18 g 1 05/13/2025 Active End: 59-49-9332nvgy 2 puff(s) by inhalation every four hours for wheezing albuterol HFA 90 mcg/act inhaler Inhale 2 puffs every 4 (four) hours if needed for wheezing 03/25/2025 Discontinuedtake 2 puff(s) by inhalation every four hours as neededVentolin HFA 108 (90 Base) MCG/ACT 2 puff as needed Inhalation every 4 hrs Activecarbamide peroxide 65 mg/ml otic solution (2 sources)Start: 07-08-2024 End: 73-10-2237uzgxgcenx peroxide (Debrox) 6.5 % otic solution Indications: Impacted cerumen of both ears Administer 3-5 drops into affected ear(s) in the morning and 3-5 drops before bedtime. Do all this for 4 days. 15 mL 07/08/2024 07/12/2024 Activecholecalciferol 0.125 mg oral capsule (16 sources)Vitamin DStart: 05-07-2025 End: 54-74-2905xhzo 1 capsule by mouth once dailyCholecalciferol (Vitamin D3) 125 mcg (5,000 unit) capsule Active 125 MCG PO Daily May 27, 2025 12:00am Complies with drug therapyStart: 02-27-2025 End: 10-31-7342xrau 1 capsule by mouth once dailycholecalciferol (Vitamin D-3) 125 MCG (5000 UT) capsule Indications: Vitamin D deficiency Take 1 capsule (125 mcg) by mouth Daily 30 capsule 2 02/27/2025 03/29/2025 Activecyclobenzaprine hydrochloride 5 mg oral tablet (1 source)Muscle RelaxantStart: 88-37-1613tcqa 1 tablet by mouth every eight hoursCyclobenzaprine HCl 5 MG 1 tablet as needed Orally Three times a day May, VcsoppFeyaxnmlsmx-Pzjbaiktq-Rcgkda (Trelegy Ellipta) 200-62.5-25 MCG/ACT aerosol powder (20 sources)take 1 puff(s) by inhalation once iuomjSnxltaioqxj-Tyrorewpq-Lnccos (Trelegy Ellipta) 200-62.5-25 MCG/ACT aerosol powder Inhale 1 puff Daily Active Jnucjaiyvcm-Lcpbsegzi-Baftpkvf (2 sources)Start: 57-84-4963Nacnxjovupy-Umeclidin-Vilanter (Trelegy Ellipta) 200-62.5-25 mcg blister with device Active 1 INH INHALATION Daily May 27, 2025 12:00am Complies with drug therapymethylPREDNISolone 4 mg oral tablet (1 source)CorticosteroidStart: 56-01-8872jyyhpdPZLSHZDlmlkf 4 MG start tomorrow as directed Orally Once a day for 6 days May, Nfmwoq99 hr propranolol hydrochloride 60 mg extended release oral capsule (18 sources)beta-Adrenergic BlockerStart: 05-27-2025 End: 63-90-9448ifuq 1 capsule by mouth every twenty-four hoursPropranolol 60 mg capsule,extended release 24 hr Active 60 MG PO Once 30 June 05, 2025 11:58am Complies with drug therapyStart: 03-05-2025 End: 59-77-3164umgc 1 capsule by mouth once dailypropranolol LA (Inderal LA) 60 MG 24 hr capsule Indications: Essential tremor Take 1 capsule (60 mg) by mouth Daily Do not crush, chew, or split. 30 capsule 2 03/05/2025 03/05/2026 Active Trelegy Ellipta (1 source)Trelegy Ellipta Active7 actuat umeclidinium 0.0625 mg/actuat / vilanterol 0.025 mg/actuat dry powder inhaler (1 source)Anticholinergic, beta2-Adrenergic Agonisttake 1 puff(s) by inhalation once dailyAnoro Ellipta 62.5-25 MCG/INH 1 puff Inhalation Once a day Active Completed/Discontinued Medications MedicationDrug Class(es)DatesSig (Normalized)Sig (Original)dextromethorphan hydrobromide 15 mg / guaiFENesin 400 mg / pseudoephedrine hydrochloride 60 mg oraltablet (1 source)alpha-Adrenergic Agonist, Uncompetitive J-fdjphl-F-aspartate Receptor Antagonist, Sigma-1 AgonistCapmist DM 60-15-400 MG 1 tablet at 4 hour intervals as needed Orally Four times a day Not-TakingToradol 30 mg/ml (1 source)Start: 06-95-1876Ngxgrna 30 mg/ml May, 30 mgtriamcinolone acetonide 40 mg/ml injectable suspension (1 source)CorticosteroidStart: 88-01-4623Dxplaek-40 May, 40 mg Problems Active Problems Problem ClassificationProblemDateDocumented DateEpisodic/ChronicChronic kidney disease (20 sources)Chronic kidney disease stage 3A ; Translations: [Chronic kidney disease, stage 3a]Onset: 000388-61-6448EwniwoxPdfitjk kidney disease (3 sources)Chronic kidney disease; Translations: [Chronic kidney disease, stage III (moderate)]Onset: 03-08-2022 Resolved: 67-92-9126Hwdeouv obstructive pulmonary disease and bronchiectasis (20 sources)Chronic obstructive pulmonary disease, unspecified; Translations: [Pulmonary emphysema]Onset: 12-16-2021 Resolved: 100118-28-6764ReyzlkaNdisbnqqf of lipid metabolism (2 sources)Hyperlipidemia, unspecified; Translations: [Hyperlipidemia, unspecified]Onset: 06-88-3293ShvhfcnLkfzyan (5 sources)Pain in toe; Translations: [Tinea unguium]30-62-6789Ilpftqun Nutritional deficiencies (20 sources)Vitamin D deficiency; Translations: [Vitamin D deficiency, unspecified]Onset: 584703-62-1026StfycewEawuu diseases of veins and lymphatics (5 sources)Vascular insufficiency; Translations: [Venous insufficiency (chronic) (peripheral)]77-19-5572UpymlpqxChymp hereditary and degenerative nervous system conditions (5 sources)Essential tremor; Translations: [Essential tremor]25-82-1137Tdkmfpk Other lower respiratory disease (4 sources)Other forms of dyspnea; Translations: [OTHER FORMS OF DYSPNEA]Onset: 80-74-3027YdrzlrwnNvuas nervous system disorders (2 sources)Idiopathic peripheral neuropathy; Translations: [Hereditary and idiopathic neuropathy, unspecified]44-09-2531LnqubpdLcymn nervous system disorders (4 sources)Peripheral nerve disease ; Translations: [Polyneuropathy, unspecified]23-68-8019ZcqbupsKyzru nervous system disorders (4 sources)Numbness and tingling sensation of skin; Translations: [Anesthesia of skin]31-98-9151IculoevyNoixb screening for suspected conditions (not mental disorders or infectious disease) (4 sources)Abnormal findings on diagnostic imaging of other specified body structures; Translations: [ABNORML FIND DX IMG OTH BODY STRUC]Onset: 02-22-2022 ChronicRespiratory failure; insufficiency; arrest (adult) (20 sources)Chronic hypoxemic respiratory failure; Translations: [Chronic respiratory failure with hypoxia]Onset: 767798-75-6012EoauardKjjbvbmlnfg failure; insufficiency; arrest (adult) (1 source)Respiratory failure; insufficiency; arrest (adult)Spondylosis; intervertebral disc disorders; other back problems (2 sources)Spondylosis without myelopathy or radiculopathy, lumbar region; Translations: [Other intervertebraldisc degeneration, lumbar region]Onset: 53-67-6672KifdvvsFqzjuif and strains (1 source)Strain of muscle, fascia and tendon of lower back, initial encounter EpisodicSubstance-related disorders (1 source)Nicotine dependence, cigarettes, with other nicotine-induced disorders; Translations: [NICOTINE DEPEND CIG W/OTH INDUC D/O]Onset: 12-16-2021 ChronicSyncope (2 sources)Syncope and collapse; Translations: [Syncope and collapse]07-07-2025 EpisodicUnclassified (3 sources)LOW BACK PAIN, UNSPECIFIED; Translations: [LOW BACK PAIN, UNSPECIFIED]Onset: 71-17-6240Cleqzdlauyxq (2 sources)New Patient; Translations: [New Patient]Onset: 01-25-2023 Past or Other Problems Problem ClassificationProblemDateDocumented DateEpisodic/ChronicMood disorders (20 sources)Mood disordersOnset: 10-10-2023 Resolved: 421804-82-7420Nocapusrize deficiencies (20 sources)Cobalamin deficiency; Translations: [Deficiency of other specified B group vitamins]Onset: 443318-56-7938HqhbxedtOmimr connective tissue disease (20 sources)Muscle pain; Translations: [Myalgia, unspecified site]Onset: 166562-97-5853RvwmuodeAbspy ear and sense organ disorders (20 sources)Impacted cerumen of bilateral ears; Translations: [Impacted cerumen, bilateral]Onset: 957610-20-4057BynuvmibNgpbm eye disorders (20 sources)Subconjunctival hemorrhage of left eye; Translations: [Conjunctival hemorrhage, left eye]Onset: 903966-18-2615LcsqbvilNteuz lower respiratory disease (1 source)Other nonspecific abnormal finding of lung field; Translations: [OTH NONSPECIFIC ABN FIND LNG FIELD]Onset: 57-25-2288WibwbqusYqbts lower respiratory disease (20 sources)Multiple nodules of lung; Translations: [Other nonspecific abnormal finding of lung field]Onset: 773517-58-5795XgpbkgcbGkmsu nervous system disorders (20 sources)Tremor; Translations: [Tremor, unspecified]Onset: 01-06-2025 05-54-1389MgltderpJobko screening for suspected conditions (not mental disorders or infectious disease) (20 sources)Encounter for screening for malignant neoplasm of respiratory organs; Translations: [Patient encounter status]Onset: EpisodicSpondylosis; intervertebral disc disorders; other back problems (4 sources)Spinal stenosis, lumbar region with neurogenic claudication; Translations: [SPINAL STENOSIS LUMBAR REGION NC]Onset: 90-94-5107Ygchraza Unclassified (1 source)LOW BACK PAIN, UNSPECIFIED; Translations: [LOW BACK PAIN, UNSPECIFIED] Onset: 12-10-2021 Results Test NameValueInterpretationReference RangeFacilityTBH VITAMIN D 25 OHon 80-14-7439JEIIUPR D53.1 ng/mLNHILLCREST HOSPITAL SOUTH HealthcareComment on above:<20 ng/mL Vit D deficient 20-<30 ng/mL Vit D insufficient 30-100 ng/mL Vit D sufficient >100 ng/mL Potential Toxicity CLINISYNCNONV HealthcareALL FOLIC ACIDon 71-31-5544FNUWLO88.6 ng/mL8.60 - 58.90 ng/mLNOMS HealthcareCLINISYNCNHILLCREST HOSPITAL SOUTH HealthcareALL CBC WITH AUTO DIFFon 02-27-2025 BASOPHILS ABSOLUTE AUTO0.1NOMS HealthcareBasophils/100 WBC (Bld)0.7 %0.2 - 2.0 % NOMSaint Joseph Health CenterEosinophils/100 WBC (Bld)1.7 %0.9 - 7.0 %[facility] Erythrocyte distribution width (RBC) [Ratio]13.2 %11.0 - 15.0 %[facility] Hematocrit (Bld) [Volume fraction]50.2 %42.0 - 54.0 %[facility] CenterHemoglobin (Bld) [Mass/Vol]17.1 g/dL14.0 - 18.0 g/dLNOMS HealthcareIMMATURE GRANULOCYTES ABS AUTO0.02NOMS HealthcareImmature granulocytes/100 WBC (Bld)0.3 %0.0 - 0.5 % NOM HealthcareInterpretation and review of laboratory resultsAbnormalNOMS HealthcareLYMPHOCYTES ABSOLUTE AUTO1.1LowNOMS HealthcareLymphocytes/100 WBC (Bld)15.3 %Low20.5 - 60.0 %NOMEllett Memorial HospitalH (RBC) [Entitic mass]32.1 pg25.9 - 34.0 pgNOSoutheast Missouri Community Treatment CenterHC (RBC) [Mass/Vol]34.1 g/dL29.9 - 35.2 g/dLNONV HealthcareMCV (RBC) [Entitic vol]94.4 oYOxbh43.0 - 94.0 fLNONV Healthcare MONOCYTES ABSOLUTE AUTO0.6NOMS HealthcareMonocytes/100 WBC (Bld)7.7 %1.7 - 12.0 %NOM HealthcareNEUTROPHILS ABSOLUTE AUTO5.5NOMS HealthcareNeutrophils/100 WBC (Bld)74.3 %43.0 - 75.0 %[facility] HealthcarePlatelet mean volume (Bld) [Entitic vol]9 fLLow9.5 - 13.5 fLNOTwo Rivers Psychiatric HospitalTBH EO #0.1NOMS HealthcareTBH OFD841MDML Mckitrick HospitalTBH RBC5.32NOMS Mckitrick HospitalTB WBC7.4NOMS HealthcareCLINISYNCNOMS HealthcareCT CHEST WO CONon 57-44-7151Y[address] [address] [address] Scan Report Signed Patient: MARTIN ARROYO MR#: [id number] : 1950 Acct:[id number] Age/Sex: 74 / M ADM Date: 01/08/25 Loc: CT Attending Dr: Darlene Christensen D.O. Ordering Physician: Darlene Christensen D.O. Date of Service: 01/08/25 Procedure(s): CT chest wo con Accession Number(s): [id number] cc: LINDA DEMPSEY [address] [address] Patient Name: MARTIN ARROYO MRN: [id number] date: 1950 Sex: M Assigned Patient Location: CT Current Patient Location: CT Accession/Order Number: [id number] Exam Date: 01/08/2025 18:00 Report Date: 01/08/2025 18:07 At the request of: DARLENE CHRISTENSEN Procedure: CT chest wo con CT Chest [...] Tonny Aguilar M.D.01/08/2025 6:07 PM Dictation Location: [facility]ITALYelp Electronically authenticated by: [id number] Y Date: 01/08/2025 18:07 Dictated By: Tonny Aguilar D.O. Signed By: 01/08/251809 DD/ 06 TD/TT: Senior Benefits Analyst:TBHRadiology, Radiologist, - 01/08/[address] [address] [address] Scan Report Signed Patient: MARTIN ARROYO MR#: [id number] : 1950 Acct:[id number] Age/Sex: 74 / M ADM Date: 01/08/25 Loc: CT Attending Dr: Darlene Christensen D.O. Ordering Physician: Darlene Christensen D.O. Date of Service: 01/08/25 Procedure(s): CT chest wo con Accession Number(s): [id number] cc: LINDA DEMPSEY The [place] [id number] Patient Name: MARTIN ARROYO MRN: [id number] date: 1950 Sex: M Assigned Patient Location: CT Current Patient Location: CT Accession/Order Number: [id number] Exam Date: 01/08/2025 18:00 Report Date: 01/08/2025 18:07 At the request of: DARLENE CHRISTESNEN DO Procedure: CT chest wo con CT [...] Tonny Aguilar M.D.01/08/2025 6:07 PM Dictation Location: [place] [address] Electronically authenticated by: [id number] Y Date: 01/08/2025 18:07 Dictated By: Tonny Aguilar D.O. Signed By: 01/08/251809 DD/ 06 TD/TT: Senior Benefits Analyst: SARA HealthcareRadiology Study observation (narrative)NOM HealthcareCT CHEST WO CONOrdered By: Radiologist Radiology on 80-45-6399IOUS Healthcare Work Phone: ct LUNG SCREENING LOW DOSEon 18-90-3999YtfWashington, [place] [address] CT Scan Report Signed Patient: MARTIN ARROYO MR#: [id number] : 1950 Acct:[id number] Age/Sex: 74 / M ADM Date: 10/11/24 Loc: CT Attending Dr: Darlene Christensen D.O. Ordering Physician: Darlene Christensen D.O. Date of Service: 10/11/24 Procedure(s): CT lung screening low-dose Accession Number(s): [id number] cc: LINDA DEMPSEY [place] [id number] Patient Name: MARTIN ARROYO MRN: [id number] date: 1950 Sex: M Assigned Patient Location: CT Current Patient Location: Accession/Order Number: [id number] Exam Date: 10/11/2024 10:05 Report Date: 10/14/2024 [...] mm solid component. Electronically authenticated by: YANDY LUNA Date: 10/14/2024 11:30 Dictated By: Yandy Luna M.D. Signed By: 10/14/24 1132 DD/ 1130 TD/TT: Senior Benefits Analyst:TBHRadiology, Radiologist, - 10/14/2024 [place] [address] CT Scan Report Signed Patient: MARTIN ARROYO MR#: [id number] : 1950 Acct:[id number] Age/Sex: 74 / M ADM Date: 10/11/24 Loc: CT Attending Dr: Darlene Christensen D.O. Ordering Physician: Darlene Christensen D.O. Date of Service: 10/11/24 Procedure(s): CT lung screening low-dose Accession Number(s): [id number] cc: LINDA DEMPSEY [place] [address] Patient Name: MARTIN ARROYO MRN: [id number] date: 1950 Sex: M Assigned Patient Location: CT Current Patient Location: Accession/Order Number: [id number] Exam Date: 10/11/2024 10:05 Report Date: 10/14/2024 [...] mm solid component. Electronically authenticated by: YANDY LUNA Date: 10/14/2024 11:30 Dictated By: Yandy Luna M.D. Signed By: 10/14/24 1132 DD/ 1130 TD/TT: Senior Benefits Analyst: [facility] HealthcareRadiology Study observation (narrative)NOM HealthcareCT LUNG SCREENING LOW DOSEOrdered By: Radiologist Radiology on 87-29-7319XNAK Altierre Work Phone: RT PULMONARY FUNCTION TESTon 02-68-1286HzmWashington, [place] [address] Respiratory Report Signed Patient: MARTIN ARROYO MR#: [id number] : 1950 Acct:[id number] Age/Sex: 74 / M ADM Date: 06/07/24 Loc: CARD Attending Dr: Shaikh Antonia Sam Ordering Physician: Shaikh Cecy Knight Date of Service: 06/07/24 Procedure(s): RT pulmonary function test Accession Number(s): [id number] cc: The [facility] Test Date: 2024-06-07 Pat Name: MARTIN ARROYO Department: Room: - Gender: Male Food Service Supervisor: Erin Chowdary RRT : 1950 Requested By: [id number] Order Number: [id number] Edmar MD: Darlene Christensen Interpretive Statements Pulmonary function testing was completed according to ATS criteria. Findings were considered accurate and reproducible. Both pre- and post-bronchodilator values utilized for spirometry. Spirometry (based on pre-bronchodilator values): -FEV1/FVC: Reduced @ 47% -FEV1: Moderately-severe reduction @ 51% -FVC: Reduced @ 79% -LHV58-62%: Reduced @ 27% -There is no significant [...] Electronically Signed On 06-18-2024 7:35:28 EDT by Darlene Christensen Dictated By: Darlene Christensen D.O. Signed By: 06/18/2435 DD/ 0 TD/TT: Senior Benefits Analyst:TBHRadiology, Radiologist, - 06/18/2024 [place] [address] Respiratory Report Signed Patient: MARTIN ARROYO MR#: [id number] : 1950 Acct:[id number] Age/Sex: 74 / M ADM Date: 06/07/24 Loc: CARD Attending Dr: Shaikh Antonia Sam Ordering Physician: Shaikh Cecy Knight Date of Service: 06/07/24 Procedure(s): RT pulmonary function test Accession Number(s): [id number] cc: The [facility] Test Date: 2024-06-07 Pat Name: MARTIN ARROYO Department: Room: - Gender: Male Food Service Supervisor: Erin Chowdary RRT : 1950 Requested By: 1575 Order Number: [id number] Reading MD: Darlene Christensen Interpretive Statements Pulmonary function testing was completed according to ATS criteria. Findings were considered accurate and reproducible. Both pre- and post-bronchodilator values utilized for spirometry. Spirometry (based on pre-bronchodilator values): -FEV1/FVC: Reduced @ 47% -FEV1: Moderately-severe reduction @ 51% -FVC: Reduced @ 79% -XGS50-97%: Reduced @ 27% -There is no significant [...] Electronically Signed On 06-18-2024 7:35:28 EDT by Darlene Christensen Dictated By: Darlene Christensen D.O. Signed By: 06/18/2435 DD/ 0 TD/TT: Senior Benefits Analyst: SARA Merino PULMONARY FUNCTION TESTOrdered By: Radiologist Radiology on 79-36-0802ZFDQ Altierre Work Phone: RT PULMONARY FUNCTION TESTon 91-25-2266Tgkurjahi Study observation (narrative)[facility]ITALMariela Mckitrick HospitalOffice Visiton 79-47-3306Xfefpv-up visit [id number] Martin Arroyo 1950 M Date Provider Department Center 07/07/2023 SEBASTIAN BOSS Family History Problem Relation Age of Onset No Known Problems Mother No Known Problems Father Family Status - Relation Status Age at Mother Father Level of Service:35900 [place] OFFICE/OUTPATIENT ESTABLISHED LOW MDM 20-29 [facility] 60-50-1169Xgtmnn-up visit [id number] Martin Arroyo 1950 M Date Provider Department Center 01/25/2023 SEBASTIAN BOSS Hos No family history on file Level of Service:85740 [place] OFFICE/OUTPATIENT NEW MODERATE MDM 45-59 MINUTES Reason for Visit and Comments: New Patient [632] - Est care- Ongoing SOB and results of heart testUniversity Hospitals Conneaut Medical CenterCP ECHO W CONTRASTon 78-56-1886RW ECHO W CONTRASTPatient: MARTIN ARROYO Exam Date: 11/10/2022 : 1950 Gender:M Ordering : SHAIKH Nathanael KNIGHT . Admission #: [id number] Family : Order #: [id number] CLICK HERE TO VIEW EXAM ECHOCARDIOGRAM REPORT [...] by: Ale Paz M.D. on 11/11/2022 at 13:41[facility] STRESS/REST MULTIon 08-32-7783FN STRESS/REST MULTIPatient: MARTIN ARROYO Exam Date: 11/10/2022 : 1950 Gender:M Ordering : SHAIKH Nathanael KNIGHT . Admission #: [id number] Family : Order #: [id number] CLICK HERE TO VIEW EXAM RADIOLOGY REPORT [...] motion and ejection fraction. Dictated by: Marshall Vega M.D. on 11/10/2022 at 15:16 Approved by: Marshall Vega M.D. on 11/10/2022 at 15:21[facility] ClinicBNPon 14-26-9516Yepjvqassda peptide B (Bld) [Mass/Vol]122.0 pg/mLNormal <=900.0The [facility] CenterComment on above:Performed By: #### CMP #### [facility] [address] [place] [address] Dr. Radha Carmona AUTO DIFFon 20-00-6369YQHY #0.1 103/ulNormal0.0-0.1The [facility] Medical CenterComment on above:Performed By: #### CMP #### [facility] [address] [place] [address] [address] Radha GomezBasophils/100 WBC (Bld)0.8 %Normal0.2-2.0The [facility] Comment on above:Performed By: #### CMP #### [facility] [address] [place] [address] Dr. Radha Díaz #0.1 103/ulNormal0.0-0.7The [facility] Medical CenterComment on above: Performed By: #### CMP #### [facility] [address] [place] [address] Dr. Radha Liosinophils/100 WBC (Bld)1.9 %Normal0.9-7.0The [facility] Comment on above:Performed By: #### CMP #### [facility] [address] [place] [address] Dr. Radha Lirythrocyte distribution width (RBC) [Ratio]12.7 %Nbaavw97.0-15.[address] [facility] Medical CenterComment on above:Performed By: #### CMP #### [facility] [address] [place] [address] Dr. Radha GomezHematocrit (Bld) [Volume fraction]49.8 %Kggtqw28.0-54.0The [facility] Medical CenterComment on above:Performed By: #### CMP #### [facility] [address] [place] [address] Dr. Radha GomezHemoglobin (Bld) [Mass/Vol]16.9 g/nGQzaxbq68.0-18.0The [facility] CenterComment on above:Performed By: #### CMP #### [facility] [address] [place] [address] Dr. Radha Verde #0.02 10e3/ulNormal0.00-0.03The [facility] Medical CenterComment on above:Performed By: #### CMP #### [facility] [address] [place] [address] Dr. Radha Verde %0.3 %Normal0.0-0.5The [facility] CenterComment on above: Performed By: #### CMP #### [facility] [address] [place] [address] Dr. Radha Duarte #1.4 103/ulNormal1.2-3.8The [facility] CenterComment on above:Performed By: #### CMP #### [facility] [address] [place] [address] Dr. Radha Steelemphocytes/100 WBC (Bld)19.3 %Critically low20.5-60.0The [facility] Medical CenterComment on above:Performed By: #### CMP #### [facility] [address] [place] [address] Dr. Radha Carbajal DIFF REQNONormalThe [facility] Medical CenterComment on above: Performed By: #### CMP #### [facility] [address] [place] [address] Dr. Radha Truong (RBC) [Entitic mass]31.9 kfIrfvme07.9-34.0The [facility] CenterComment on above:Performed By: #### CMP #### [facility] [address] [place] [address] Dr. Radha Truong (RBC) [Mass/Vol]33.9 g/hMJlxjne17.9-35.2The [facility] CenterComment on above:Performed By: #### CMP #### [facility] [address] [place] [address] Dr. Radha Trinidad (RBC) [Entitic vol]94.0 yTPxrgql95.0-94.0The [facility] CenterComment on above:Performed By: #### CMP #### [facility] [address] [place] [address] Dr. Radha Saldaña #0.7 103/ulNormal0.3-0.8The [facility] CenterComment on above:Performed By: #### CMP #### [facility] [address] [place] [address] Dr. Radha Beckmanocytes/100 WBC (Bld)9.5 %Normal1.7-12.0The [facility] Comment on above:Performed By: #### CMP #### [facility] [address] [place] [address] Dr. Radha Bran #5.0 103/ulNormal1.4-6.5The [facility] CenterComment on above:Performed By: #### CMP #### [facility] [address] [place] [address] Dr. Radha GomezNeutrophils/100 WBC (Bld)68.2 %Jnnjzg52.0-75.0The [facility] CenterComment on above:Performed By: #### CMP #### [facility] [address] [place] [address] Dr. Radha GomezPlatelet mean volume (Bld) [Entitic vol]9.0 fLCritically low 9.5-13.5The [facility] CenterComment on above:Performed By: #### CMP #### [facility] [address] [place] [address] Dr. Radha GomezPLT183 103/wzBsrddu159-172Uyt [facility] CenterComment on above: Performed By: #### CMP #### [facility] [address] [place] [address] Dr. Radha GomezRBC5.30 106/ulNormal4.70-6.10The [facility] CenterComment on above:Performed By: #### CMP #### [facility] [address] [place] [address] Dr. Radha GomezWBC7.3 103/ulNormal4.0-11.0The [facility] CenterComment on above: Performed By: #### CMP #### [facility] [address] [place] [address] Dr. Radha GomezPROF CHEM 8 (BAS METB)on 16-01-3815Qffqk gap [Moles/Vol]11.7 mmol/LNormalThe [facility] CenterComment on above:Performed By: #### CMP #### [facility] [address] [place] [address] Dr. Radha GomezCalcium [Mass/Vol]9.5 mg/dLNormal8.5-10.1The [facility] Comment on above:Performed By: #### CMP #### [facility] [address] [place] [address] Dr. Radha GomezChloride [Moles/Vol]105 mmol/PShhtbr32-296VqtMercy Health [facility]iff[facility] Comment on above:Performed By: #### CMP #### [facility] [address] [address] [address] Radha GomezCO2 [Moles/Vol]27.5 mmol/EWmuijg83.0-32.0[facility] Comment on above:Performed By: #### CMP #### [facility] [address] [address] [address] Radha GomezCreatinine [Mass/Vol]1.35 mg/dLCritically high0.70-1.30The [facility] CenterComment on above:Performed By: #### CMP #### [facility] [address] [place] [address] Dr. Garcia ChangEGFR-AF BOTSWANAN>60Normal>=60The [facility] CenterComment on above:Performed By: #### CMP #### [facility] [address] [place] [address] Dr. Radha LiGFR-NON AF GVQZSWSL33 mL/min/1.03q9Menekpihvs low>=60[facility] HospitalComment on above:Performed By: #### CMP #### [facility] [address] [place] [address] Dr. Radha GomezGlucose [Mass/Vol]88 mg/hWBesefh65-899AfzMercy Health Tiffin Hospital Comment on above:Performed By: #### CMP #### [facility] [address] [address] [address] Radha GomezPotassium [Moles/Vol]4.2 mmol/LNormal3.5-5.1[facility] Comment on above:Performed By: #### CMP #### [facility] [address] [place] [address] Dr. Radha GomezSodium [Moles/Vol]140 mmol/AJxhust438-370QtoMercy Health Tiffin Hospital Comment on above:Performed By: #### CMP #### [facility] [address] [address] [address] Radha GomezUrea nitrogen [Mass/Vol]19.0 mg/dLCritically high7.0-18.0[facility] HospitalComment on above:Performed By: #### CMP #### [facility] [address] [place], [place] [address] Dr. Radha GomezUrea nitrogen/Creatinine [Mass ratio]14.1 mg/mgNoSouthern [place] Medical CenterComment on above:Performed By: #### CMP #### [facility] [address] [place], [place] [address] Dr. Radha GomezXR CHEST 2 Von [id number] CHEST 2 VEXAM: XR CHEST 2 V HISTORY: . Dyspnea [...] Electronically authenticated by: YANDY PINEDA Date: 2022-11-02 08:42[facility]XR LSPINE 2_3 VIEWSon [id number] LSPINE 2_3 VIEWSEXAMINATION: XR LSPINE 2_3 VIEWS HISTORY: Spinal stenosis of lumbar region COMPARISON: 06/09/2022 FINDINGS: BONES: Normal alignment with no acute fracture or spondylolisthesis. Moderate degenerative spondylosis and facet osteoarthropathy DISC SPACES: Mild to moderate disc space narrowing most significant at T12-L2 PARASPINOUS: Negative. No paraspinous abnormality is seen. OTHER: Vascular calcifications IMPRESSION: Mild to moderate degenerative changes, stable Electronically authenticated by: YANDY LUNA Date: 2022-06-21 15:47[facility] ClinicCT CHEST WO CONon [id number] CHEST WO CONEXAMINATION: CT CHEST WO CON HISTORY: Imaging result abnormal COMPARISON: [...] to document stability Electronically authenticated by: YANDY LUNA Date: 2022-02-22 13:27[facility] AUTO DIFFon [id number] #0.1 103/ulNormal0.0-0.1[facility] HospitalComment on above:Performed By: #### CBC #### [facility] [address] [place] [address] Dr. Radha Whitneysophils/100 WBC (Bld)0.6 %Normal0.2-2.0The [facility] Comment on above:Performed By: #### CBC #### [facility] [address] [place] [address] Dr. Radha Díaz #0.3 103/ulNormal0.0-0.7The [facility] CenterComment on above: Performed By: #### CBC #### [facility] [address] [place] [address] Dr. Radha Liosinophils/100 WBC (Bld)3.1 %Normal0.9-7.0The [facility] Comment on above:Performed By: #### CBC #### [facility] [address] [place] [address] Dr. Radha Lirythrocyte distribution width (RBC) [Ratio]12.8 %Ogmxne08.0-15.[address] [facility] CenterComment on above:Performed By: #### CBC #### [facility] [address] [place] [address] Dr. Radha GomezHematocrit (Bld) [Volume fraction]50.9 %Pwqgkn32.0-54.0The [facility] CenterComment on above:Performed By: #### CBC #### [facility] [address] [place] [address] Dr. Radha GomezHemoglobin (Bld) [Mass/Vol]17.3 g/gDEyweax63.0-18.0The [facility] CenterComment on above:Performed By: #### CBC #### [facility] [address] [place] [address] Dr. Radha Verde #0.02 10e3/ulNormal0.00-0.03The [facility] CenterComment on above:Performed By: #### CBC #### [facility] [address] [place] [address] Dr. Radha GomezIG %0.3 %Normal0.0-0.5The [facility] CenterComment on above: Performed By: #### CBC #### [facility] [address] [place] [address] Dr. Radha SteeleMPH #1.4 103/ulNormal1.2-3.8The [facility] CenterComment on above:Performed By: #### CBC #### [facility] [address] [place] [address] Dr. Radha Steelemphocytes/100 WBC (Bld)18.0 %Critically low20.5-60.0The [facility] CenterComment on above:Performed By: #### CBC #### [facility] [address] [place] [address] Dr. Radha Carbajal DIFF REQNONormalThe [facility] CenterComment on above: Performed By: #### CBC #### [facility] [address] [place] [address] Dr. Radha Truong (RBC) [Entitic mass]31.3 jiKbwxcr76.9-34.0The [facility] CenterComment on above:Performed By: #### CBC #### [facility] [address] [place] [address] Dr. Radha Truong (RBC) [Mass/Vol]34.0 g/xMGzuxky20.9-35.2The [facility] CenterComment on above:Performed By: #### CBC #### [facility] [address] [place] [address] Dr. Radha Truong (RBC) [Entitic vol]92.0 dRUopobl41.0-94.0The [facility] CenterComment on above:Performed By: #### CBC #### [facility] [address] [place] [address] Dr. Radha Saldaña #0.7 103/ulNormal0.3-0.8The [facility] CenterComment on above:Performed By: #### CBC #### [facility] [address] [place] [address] Dr. Radha Beckmanocytes/100 WBC (Bld)8.3 %Normal1.7-12.0The [facility] Comment on above:Performed By: #### CBC #### [facility] [address] [place] [address] Dr. Radha Bran #5.5 103/ulNormal1.4-6.5The [facility] CenterComment on above:Performed By: #### CBC #### [facility] [address] [place] [address] Dr. Radha Velasquezutrophils/100 WBC (Bld)69.7 %Yidjbt23.0-75.0The [facility] CenterComment on above:Performed By: #### CBC #### [facility] [address] [address] [address] Radha GomezPlatelet mean volume (Bld) [Entitic vol]9.3 fLCritically low 9.5-13.5The [facility] CenterComment on above:Performed By: #### CBC #### [facility] [address] [place] [address] Dr. Radha GomezPLT168 103/qbZifurf360-106Avy [facility] CenterComment on above: Performed By: #### CBC #### [facility] [address] [place] [address] Dr. Radha GomezRBC5.53 106/ulNormal4.70-6.10The [facility] CenterComment on above:Performed By: #### CBC #### [facility] [address] [place] [address] Dr. Radha GomezWBC7.9 103/ulNormal4.0-11.0The [facility] CenterComment on above: Performed By: #### CBC #### [facility] [address] [place] [address] Dr. Radha GomezCT LUNG CANCER SCREENINGon [id number] LUNG CANCER SCREENING EXAMINATION: CT LUNG CANCER [...] resolution versus stability. Electronically authenticated by: MARSHALL VEGA Date: 2021-12-10 11:08[facility] ClinicPROF 14(COMP METB)on [id number] [Mass/Vol]3.7 g/dLNormal 3.5-5.0The [facility] CenterComment on above:Performed By: #### CMP #### [facility] [address] [place] [address] Dr. Radha GomezAlbumin/Globulin [Mass ratio]1.1 {ratio}NormalThe [facility] CenterComment on above:Performed By: #### CMP #### [facility] [address] [place] [address] Dr. Radha López [Catalytic activity/Vol]92 U/GYjqdwy52-949Maj [facility] Hospitalment on above:Performed By: #### CMP #### [facility] [address] [place] [address] Dr. Radha Fox [Catalytic activity/Vol]26 U/XJnogto63-12Tzs [facility] Hospitalment on above:Performed By: #### CMP #### [facility] [address] [place] [address] Dr. Radha Arredondo gap [Moles/Vol]13.0 mmol/LNormalThe [facility] Comment on above:Performed By: #### CMP #### [facility] [address] [place] [address] Dr. Radha Aponte [Catalytic activity/Vol]20 U/CIeoymz72-60Uwn [facility] Hospitalment on above:Performed By: #### CMP #### [facility] [address] [address] [address] Radha GomezBilirubin [Mass/Vol]1.1 mg/dLNormal0.2-1.3The [facility] Comment on above:Performed By: #### CMP #### [facility] [address] [place] [address] Dr. Radha GomezCalcium [Mass/Vol]9.3 mg/dLNormal8.4-10.2The [facility] Comment on above:Performed By: #### CMP #### [facility] [address] [place] [address] Dr. Radha GomezChloride [Moles/Vol]106 mmol/DUiaawd27-581Sch [facility] Comment on above:Performed By: #### CMP #### [facility] [address] [place] [address] Dr. Radha GomezCO2 [Moles/Vol]23.4 mmol/QHvgrph95.0-30.0The [facility] Comment on above:Performed By: #### CMP #### [facility] [address] [place] [address] Dr. Radha GomezCreatinine [Mass/Vol]1.39 mg/dLCritically high0.66-1.25The [facility] CenterComment on above:Performed By: #### CMP #### [facility] [address] [place] [address] Dr. Radha LiGFR-AF BOTSWANAN>60Normal>=60The [facility] CenterComment on above:Performed By: #### CMP #### [facility] [address] [place] [address] Dr. Radha LiGFR-NON AF FYEQCEYM86 mL/min/1.56k9Lzwnvvypbk low>=60The [facility] CenterComment on above:Performed By: #### CMP #### [facility] [address] [place] [address] Dr. Radha GomezGlobulin (S) [Mass/Vol]3.4 g/dLNormalThe [facility] CenterComment on above:Performed By: #### CMP #### [facility] [address] [place] [address] Dr. Radha GomezGlucose [Mass/Vol]94 mg/oVDusnpf37-469Efm [facility] Comment on above:Performed By: #### CMP #### [facility] [address] [address] [address] Radha GomezPotassium [Moles/Vol]4.4 mmol/LNormal3.4-5.0The [facility] Comment on above:Performed By: #### CMP #### [facility] [address] [address] [address] Radha GomezProtein [Mass/Vol]7.1 g/dLNormal6.1-8.2The [facility] Comment on above:Performed By: #### CMP #### [facility] [address] [address] [address] Radha GomezSodium [Moles/Vol]138 mmol/ZIvmgbg072-595Spl [facility] Comment on above:Performed By: #### CMP #### [facility] [address] [address] [address] Radha GomezUrea nitrogen [Mass/Vol]23.0 mg/dLCritically high9.0-20.0The [facility] CenterComment on above:Performed By: #### CMP #### [facility] [address] [place] [address] Dr. Radha Mariano nitrogen/Creatinine [Mass ratio]16.5 mg/mgNormalThe [facility] CenterComment on above:Performed By: #### CMP #### [facility] [address] [place] [address] Dr. Radha GomezXR LSPINE 2_3 VIEWSon [id number] LSPINE 2_3 VIEWSEXAMINATION: XR LSPINE 2_3 VIEWS HISTORY: Low back [...] No comparison studies. Electronically authenticated by: MARSHALL VEGA Date: 2021-12-10 11:13[facility] Vital Signs Date TimeVital SignValuePerforming MgklkewpmWaweagrv10-04-6570 16:03-0400Body gpuzme518.9 cmSaul Pineda DPM Work Phone: [facility] CenterPneldbseqa67-54-1229 16:03-0400Body mass index (BMI) [Ratio]28.62 kg/s2LyvoxfooSaul Pineda DPM Work Phone: [facility] CenterFsralwiiij93-68-5724 16:03-0400Body .71 kgSaul Pineda DPM Work Phone: [facility] CenterKkrmgvhbes44-01-6794 16:03-0400Respiratory rate16 /minSaul Pineda DPM Work Phone: [facility] CenterNmmjhiayvd78-70-9381 13:06-0400Body fvdryc274.42 cmNoJUNIQE Health Serv Work Phone: [phone] [place], [place] 4226609-08-2025 13:06-0400 Body mass index (BMI) [Ratio]27.4 kg/u5[facility] Work Phone: [phone] [place], [place] 4226609-08-2025 13:06-0400 Body akiwvpjbotk98.3 [degF][employer] [facility] Work Phone: [phone] [place], [place] 4226609-08-2025 13:06-0400 Body sajlzh04.4 kgNoJUNIQE Health Serv Work Phone: [phone]09-08-2025 13:06-0400 Diastolic blood xedcgkvw11 mm[Hg][facility] Work Phone: [phone]-[facility] [place][note 2]5[facility]09-08-2025 13:06-0400 Heart rate54 /minNorJUNIQE Health Serv Work Phone: [phone] [place], [place] 4226609-08-2025 13:06-0400 Respiratory rate18 /minNoM[facility] Work Phone: [phone] [place], [place] 4226609-08-2025 13:06-0400 SaO2% (BldA) [Mass fraction]94 %[facility] Work Phone: [phone] [place], [place] 4226609-08-2025 13:06-0400 Systolic blood kwuqvtdd858 mm[Hg][facility] [employer] [facility] Work Phone: [phone]07-29-2025 15:04-0400 Diastolic blood mm[Hg][facility] Work Phone: [phone]07-29-2025 15:04-0400 Systolic blood mm[Hg][facility] [employer] Work Phone: [phone] [place], [place] 4226606-19-2025 16:00-0400 Body sfigjv333.9 cmSaul Miriam DPM Work Phone: [facility] CenterKabnrffnxh09-38-8766 16:00-0400Body mass index (BMI) [Ratio]28.62 kg/j0FdfgjuakSaul Pineda DPM Work Phone: [facility] CenterKvvcszxogk20-02-1167 16:00-0400Body upmuyu02.71 kgSaul Pineda DPM Work Phone: [facility] CenterElwjesdbbb64-62-3682 16:00-0400Respiratory rate16 /Mady Pineda DPM Work Phone: [facility] CenterDtabkjnamv79-67-8074 13:49-0400Body mass index (BMI) [Ratio]28.62 kg/m2Darlene De Souza EMAIL MANAGER Work Phone: [facility] CenterMipmzuvlgi61-01-5177 13:49-0400Body temperature 98.49 [degF]Darlene De Souza EMAIL MANAGER Work Phone: [facility] CenterPmebichiad74-54-0271 13:49-0400Body tiqigv93.71 kgDarlene De Souza EMAIL MANAGER Work Phone: no[facility] HospitalOvjdaykfea28-11-7493 13:49-0400Diastolic blood jarteojp01 mm[Hg]Darlene De Souza EMAIL MANAGER Work Phone: no[facility] HospitalCciiktbgax40-31-5996 13:49-0400Heart rate68 /min Darlene De Souza EMAIL MANAGER Work Phone: no[facility] HospitalJnukwbwbjg41-13-5754 13:49-0400Respiratory rate20 /minDarlene De Souza EMAIL MANAGER Work Phone: no[facility] HospitalCawicfpekn54-14-4389 13:49-1088RzF6% (BldA) [Mass fraction]90 %Darlene De Souza EMAIL MANAGER Work Phone: no[facility] HospitalBbzmcuzkiu89-13-2991 13:49-0400Systolic blood ijtpjjto602 mm[Hg]Darlene De Souza EMAIL MANAGER Work Phone: [facility] CenterXrsohnhsvm76-59-2468 13:46-0400Body tmykjz051.9 cmNicole Hien DO Work Phone: no[facility] HospitalZxocsugquj21-90-0178 13:46-0400Body mass index (BMI) [Ratio]28.35 kg/y2Tvolho Hien DO Work Phone: no[facility] HospitalBwlgtfiepj45-74-5363 13:46-0400Body ufpvln92.8 kg Alonso Hien DO Work Phone: no[facility] HospitalNuyrrfvleq17-27-6774 13:46-0400Diastolic blood wphfonhr24 mm[Hg]Alonso Hien DO Work Phone: no[facility] HospitalSotltnkyxw18-19-6502 13:46-0400Heart rate85 /min Alonso Hien DO Work Phone: no[facility] HospitalLryldsasyo86-47-3025 13:46-2385PoV3% (BldA) [Mass fraction]93 %Alonso Hien DO Work Phone: no[facility] HospitalDejiawedun47-00-8353 13:46-0400Systolic blood mwycsgul510 mm[Hg]Alonso Hien DO Work Phone: noTwo [facility] HospitalMumvgqzjpt09-02-7636 13:43-0400Body dcbfoj168.4 cmSaul Miriam DPM Work Phone: no[facility] HospitalUmxfisfuoc94-54-9425 13:43-0400Body mass index (BMI) [Ratio]27.57 kg/f0XjvruubeSaul Pineda DPM Work Phone: no[facility] HospitalBppwbjkycn29-86-2230 13:43-0400Body .8 kg Saul Pineda DPM Work Phone: no[facility] HospitalWrpbqhwjfx56-77-5394 13:43-0400Diastolic blood vakigejv48 mm[Hg]Saul Pineda DPM Work Phone: no[facility] HospitalKvtcmlhirb96-34-7435 13:43-0400Heart rate70 /min Saul Pineda DPM Work Phone: no[facility] HospitalRfzfasmncg05-77-0067 13:43-0400Systolic blood dxwuxmry149 mm[Hg]Saul Pineda DPM Work Phone: no[facility] HospitalSzvghbyupl66-49-9712 13:16-0400Body rizzrp626.4 Eliezerisa Nolvia EMAIL MANAGER Work Phone: noTwo [facility] HospitalIarvngpnri36-63-3502 13:16-0400Body mass index (BMI) [Ratio]27.57 kg/m2Lisa Chaz EMAIL MANAGER Work Phone: [facility] CenterBpdrxjbsnk56-53-8457 13:16-0400Body temperature 97.81 [degF]Darlene Chaz EMAIL MANAGER Work Phone: [facility] CenterPyzmerniml25-79-0200 13:16-0400Body fazxfc28.8 kg Darlene Aichholz EMAIL MANAGER Work Phone: [place] [address]Uwrjqvbgsh91-05-3491 13:16-0400Diastolic blood vfcohbqu16 mm[Hg]Darlene Aichholz EMAIL MANAGER Work Phone: [place] [address]Loabwfvury35-42-8028 13:16-0400Heart rate70 /min Darlene Aichholz EMAIL MANAGER Work Phone: [facility] CenterRtcppxqtpm30-78-1920 13:16-0400Respiratory rate19 /minDarlene De Souza EMAIL MANAGER Work Phone: [facility] CenterTdlkurndnr70-51-8735 13:16-9846BiM4% (BldA) [Mass fraction]90 %Darlene De Souza EMAIL MANAGER Work Phone: [facility] CenterFgncrjsxeu88-21-9334 13:16-0400Systolic blood mm[Hg]Darlene De Souza EMAIL MANAGER Work Phone: [facility] CenterFuqfnnmbqo34-93-4375 09:17-0500Body rnepbh891.4 cmBriandakamilla Pineda DPM Work Phone: [facility] CenterKafrthdgua81-62-2815 09:17-0500Body mass index (BMI) [Ratio]28.5 kg/g7Cfwcbyyf Miriam DPM Work Phone: [facility] CenterNfykecktqx39-62-9266 09:17-0500Body yhvwii77.98 kgSaul Miriam DPM Work Phone: [facility] CenterZsafedllji30-58-0468 09:17-0500Respiratory rate18 /minBriandakamilla Pineda DPM Work Phone: [facility] CenterAosoqpaocs92-55-4671 09:48-0500Body .4 cmLinda Mortonk EMAIL MANAGER Work Phone: [facility] CenterDzxytjusze71-81-7142 09:48-0500Body mass index (BMI) [Ratio]28.5 kg/s2Aacsbblh Dempsey EMAIL MANAGER Work Phone: [facility] CenterHtvyjvactn70-96-6752 09:48-0500Body temperature 97.59 [degF]Linda Amandatrick EMAIL MANAGER Work Phone: [facility] CenterEaopmwpfdv35-74-9179 09:48-0500Body wosyig46.98 kgLinda Amandatrick EMAIL MANAGER Work Phone: [facility] CenterLqphaptdoc54-08-5730 09:48-0500Diastolic blood wpnyzuya09 mm[Hg]Linda Dempsey EMAIL MANAGER Work Phone: [facility] CenterJcdsnpqwht62-01-2086 09:48-0500Heart rate97 /min Linda Dempsey EMAIL MANAGER Work Phone: [facility] CenterZicqnbxkok47-19-1571 09:48-0500Respiratory rate18 /minBrittany Dempsey EMAIL MANAGER Work Phone: [facility] CenterRhbiqejgdl53-95-1868 09:48-7069VjG6% (BldA) [Mass fraction]93 %Linda Dempsey EMAIL MANAGER Work Phone: [facility] CenterLlisnepuph44-88-4205 09:48-0500Systolic blood ghvbkjum099 mm[Hg]Linda Dempsey EMAIL MANAGER Work Phone: [facility] CenterGorrflmqzd14-91-0945 09:34-0400Body .4 cmSaul Pineda DPM Work Phone: [facility] CenterJmazmruzww35-02-5243 09:34-0400Body mass index (BMI) [Ratio]27.71 kg/b6KjmynogtSaul Pineda DPM Work Phone: [facility] CenterTabvxctkbc73-09-7346 09:34-0400Body azocjw21.25 kgSaul Pineda DPM Work Phone: [facility] CenterXjyttnzlue37-98-1308 09:34-0400Diastolic blood ithhunge01 mm[Hg]Saul Pineda DPM Work Phone: [facility] CenterUuekrywitp66-82-6699 09:34-0400Heart rate88 /min Saul Pineda DPM Work Phone: [facility] CenterSdrkibtqel32-90-0123 09:34-0400Systolic blood figwetfg215 mm[Hg]Saul Pineda DPM Work Phone: [facility] CenterVrryysbxel88-93-2756 10:08-0400Body .4 cmLinda Mortonk EMAIL MANAGER Work Phone: no[facility] HospitalPuhowyvcde67-02-9332 10:08-0400Body mass index (BMI) [Ratio]27.71 kg/w5VabezalaLinda Amandatrick EMAIL MANAGER Work Phone: noTwo [facility] HospitalHsshicksiu14-71-5745 10:08-0400Body temperature 97.81 [degF]Linda Amandatrick EMAIL MANAGER Work Phone: noTwo [facility] HospitalGknwmnpzxv18-37-1260 10:08-0400Body .25 kgLinda Amandatrick EMAIL MANAGER Work Phone: noTwo [facility] HospitalMchuzwcjhm99-11-1362 10:08-0400Diastolic blood peurcjgi17 mm[Hg]Linda Mortonk EMAIL MANAGER Work Phone: noTwo [facility] HospitalAsvzzobkxh59-17-9497 10:08-0400Heart rate77 /min Linda Mortonk EMAIL MANAGER Work Phone: noNV HealthcareComment on above:96% C748-20-5998 10:08-0400Systolic blood joywfwmz972 mm[Hg]Linda Mortonk EMAIL MANAGER Work Phone: noTwo [facility] HospitalAyyagutqsu21-75-9820 10:30-0400Body wnopjd295.42 Juana Haines Other [employer] Other 697768-94-3565 10:30-0400Body mass index (BMI) [Ratio] 28.36 kg/c1RabhusencRowena Haines Other [employer] Other 08-19-2022 10:30-0400Body zceagmdzssp25.7 [degF] Rowena Haines Other [employer] Other 08-19-2022 10:30-0400Body .52 kgStemily Haines Other [employer] Other 08-19-2022 10:30-0400Diastolic blood zeqzwaoi01 mm[Hg] Rowena Tonyault Other [employer] Other 08-19-2022 10:30-0400Respiratory rate18 /minSiraj Tonyault Other [employer] Other 08-19-2022 10:30-7632VkI4% (BldA) [Mass fraction]95 % Rowena Tonyault Other [employer] Other 08-19-2022 10:30-0400Systolic blood mm[Hg] Rowena Tonyault Other [employer] Other 05-10-2022 11:20-0400Body .42 cmAdarin Lorenamariela Other [employer] Other 05-10-2022 11:20-0400Body mass index (BMI) [Ratio]28.6 kg/m2Lisa Lorenamariela Other [employer] Other 05-10-2022 11:20-0400Body gzztyewcoop85.9 [degF]Lisa Lorenamariela Other [employer] Other 05-10-2022 11:20-0400Body .34 kgLisa Lorenamariela Other [employer] Other 05-10-2022 11:20-0400Diastolic blood ofjmprud50 mm[Hg] Lisa Alexanderyulisa Other [employer] Other 05-10-2022 11:20-0400Respiratory rate20 /minLisa Lester Other [facility] [employer] Other 05-10-2022 11:20-1006YrC3% (BldA) [Mass fraction]90 % Lisa Lester Other [facility] [employer] Other 05-10-2022 11:20-0400Systolic blood dzxcylps455 mm[Hg] Lisa Lester Other [facility] [employer] Other Encounters Encounter DateEncounter TypeCare ProviderFacilityStart: 07-10-2025 End: 35-24-1686Ohkhsyc encounter Sybil Pineda DPM Work Phone: n[facility] CI PODIATRYComment on above:Pain due to onychomycosis of toenails of both feet (Primary Dx); Venous insufficiencyStart: 07-10-2025 End: 68-02-6934czwucmaxqxZIGWZXVA A BROWNNot AvailableStart: 07-10-2025 End: 72-46-0701Zrqhmc Bong Pineda DPM Work Phone: [facility] CI PODIATRYStart: 07-10-2025 End: 63-49-1926Cyfxnk Bong Pineda DPM Work Phone: [facility] CI PODIATRYStart: 07-07-2025 End: 35-97-2052aqhmhzmwlaByecnok [facility] Work Phone: [facility] Work Phone: Start: 07-07-2025 End: 65-53-8765Jchefye encounter José De Souza EMAIL MANAGER-[facility] Work Phone: Start: 49-93-1559Bivdhdr encounter procedureNorbernardino [facility] Work Phone: [facility]: 06-18-2025 End: 73-69-6976Iezsrfsqu Result EncounterLisa Aichholz EMAIL MANAGER Work Phone: noms External Department UnsolicitedStart: 06-18-2025 End: 57-13-5240Kazvmvtzm Result EncounterLisa Aichholz EMAIL MANAGER Work Phone: noms External Department UnsolicitedStart: 06-05-2025 End: 99-42-6668ZdjwjyHljn Aichholz EMAIL MANAGER Work Phone: noms CWM FMComment on above:Vitamin D deficiencyStart: 05-27-2025 End: 79-37-0743qmjiygsvdmGmxlgedSt. [facility] Serv Work Phone: [facility] Work Phone: Start: 05-27-2025 End: 87-78-4371Lqthtbi encounter procedureKaty Arellano APRTHE [facility] Work Phone: Start: 05-13-2025 End: 80-10-8731UofzppFlmd Theahholz EMAIL MANAGER Work Phone: noms CWM FMComment on above:Pulmonary emphysema, unspecified emphysema type (HCC)Start: 05-07-2025 End: 96-49-9953WekddlWyew Aichholz EMAIL MANAGER Work Phone: noms CWM FMComment on above:Essential tremor; Vitamin D deficiencyStart: 04-21-2025 End: 89-62-3359Becuhrg encounter procedureAlonso Jacobs [facility] Work Phone: Start: 04-17-2025 End: 70-91-0431Efbzirx encounter procedureSaul Pineda DPM Work Phone: noms CI PODIATRYComment on above:Pain due to onychomycosis of toenails of both feet (Primary Dx); Venous insufficiencyStart: 04-17-2025 End: 03-52-2850nohjoddloaDTQVVVFH A MIRIAMNot AvailableStart: 04-17-2025 End: 07-10-0818Okisjd flowsheetNiccristhian Annabel Pineda DPM Work Phone: [facility] CI PODIATRYStart: 04-17-2025 End: 14-55-7378Fmdnto flowsheetNicholkamilla Annabel Pineda DPM Work Phone: [facility] CI PODIATRYStart: 03-25-2025 End: 91-20-7211Gkjvbphrx Result EncounterNicole Hien DO Work Phone: [facility] External Department UnsolicitedStart: 03-25-2025 End: 61-13-4402Hhwjcsbch Result EncounterNicole Hien DO Work Phone: [facility] External Department UnsolicitedStart: 03-25-2025 End: 79-52-7760UytlaaSzlg Aichholz EMAIL MANAGER Work Phone: [facility] CWM FMComment on above:Pulmonary emphysema, unspecified emphysema type (CMS/HCC) (Primary Dx)Start: 03-11-2025 End: 66-19-1775Yorcdv flowsheetLisa Chaz EMAIL MANAGER Work Phone: [facility] CWM FMStart: 03-11-2025 End: 65-17-5932Wjxjjo flowsheetLisa Aichholz EMAIL MANAGER Work Phone: [facility] CWM FMStart: 03-11-2025 End: 33-63-9549Nsmpbl outpatient visit 15 minutesLisa Theahcoreyz EMAIL MANAGER Work Phone: [facility] CWM FMComment on above:Tremor (Primary Dx); Impacted cerumen of both ears; Chronic kidney disease, stage 3a (HCC) (CMS/HCC); Vitamin D deficiency; Vitamin B12 deficiencyStart: 03-11-2025 End: 14-96-9532kyojbtxvhiGOYC AICHHOLZNot AvailableStart: 03-05-2025 End: 55-34-2006Bzdxwa flowsheetNicole Hien DO Work Phone: ANA BELLEVUEStart: 03-05-2025 End: 32-07-9061Vpvytt flowsheetNicole Hien DO Work Phone: ana BELLEVUEStart: 03-05-2025 End: 34-91-1433Ntirpf outpatient new 45 minutesNicole Hien DO Work Phone: aNA BELLEVUEComment on above:Essential tremor (Primary Dx); Idiopathic peripheral neuropathy; Numbness and tingling; Vitamin B12 deficiency; TremorStart: 03-05-2025 End: 68-55-6686neqhlvvskyKGVCSF DANNERNot AvailableStart: 02-27-2025 End: 03-34-7148Ljgyojsfs Result EncounterLisa Aichholz EMAIL MANAGER Work Phone: noms External Department UnsolicitedStart: 02-27-2025 End: 09-41-1599Nmzmhjlvq Result EncounterLisa Aichholz EMAIL MANAGER Work Phone: noms External Department UnsolicitedStart: 02-27-2025 End: 54-59-0487GeixupXsql Aichholz EMAIL MANAGER Work Phone: noms CWM FMComment on above:Vitamin D deficiency (Primary Dx)Start: 01-23-2025 End: 34-10-0429Sgqnta Bong Pineda DPM Work Phone: noMS CI PODIATRYStart: 01-23-2025 End: 93-65-6922Xugahd Bong Pineda DPM Work Phone: [facility] CI PODIATRYStart: 01-23-2025 End: 67-51-9560Ayhkxzi encounter procedureSaul Pineda DPM Work Phone: N[facility] CI PODIATRYComment on above:Pain due to onychomycosis of toenails of both feet (Primary Dx); Venous insufficiencyStart: 01-23-2025 End: 64-29-7407yhsthhleuyUQICCEWZ A BROWNNot AvailableStart: 01-08-2025 End: 16-72-5205Fkweawmuv Result EncounterGeneric External Data ProviderNOMS External Department UnsolicitedStart: 01-08-2025 End: 31-41-4874Mnzlpmryu Result EncounterGeneric External Data ProviderNONV External Department UnsolicitedStart: 01-06-2025 End: 37-32-1545Ancadp outpatient visit 25 Malou Matiasmiguel ángel EMAIL MANAGER Work Phone: noms CWM FMComment on above:Screening for prostate cancer (Primary Dx); Centrilobular emphysema (CMS/HCC); Chronic respiratory failure with hypoxia (CMS/HCC); Chronic kidney disease, stage 3a (HCC) (CMS/HCC); Bronchiectasis, uncomplicated (CMS/HCC); Myalgia; Tremor; Impacted cerumen of both earsStart: 01-06-2025 End: 98-11-1740ooyzzbthhdWFQI AICHHOLZNot AvailableStart: 10-31-2024 End: 27-31-7179Fpsmxu flowsJuvenal Pineda DPM Work Phone: noms CI PODIATRYStart: 10-31-2024 End: 82-83-0347Qvnmtt flowsheetNiccristhian Jin Brown DPM Work Phone: noMS CI PODIATRYStart: 10-31-2024 End: 26-32-8374Ofhbvlg encounter procedureNiccristhian Pineda DPM Work Phone: noms CI PODIATRYComment on above:Pain due to onychomycosis of toenails of both feet (Primary Dx); Venous insufficiencyStart: 10-31-2024 End: 62-12-5961hjtiupymjjHXKJUTAU A BROWNNot AvailableStart: 10-16-2024 End: 55-80-3486Mommjn flowsheetBrittany Dempsey EMAIL MANAGER Work Phone: noms CWM FMStart: 10-16-2024 End: 09-61-1350Falyzq flowsheetBrittany Dempsey EMAIL MANAGER Work Phone: noms CWM FMStart: 10-16-2024 End: 51-42-4311Epxhwtf encounter procedureBrittany Dempsey EMAIL MANAGER Work Phone: noms CWM FMComment on above:Encounter for Medicare annual wellness exam (Primary Dx)Start: 10-16-2024 End: 74-05-4472tfyyrcpwsvOVDUNICDAmelia Mitchell AvailableStart: 10-14-2024 End: 73-54-5623Esooatpik Result EncounterGeneric External Data ProviderNOMS External Department UnsolicitedStart: 10-14-2024 End: 95-71-9957Gpdmsjmao Result EncounterGeneric External Data ProviderNOMS External Department UnsolicitedStart: 08-22-2024 End: 73-09-6762Muheux Bong Pineda DPM Work Phone: noms CI PODIATRYStart: 08-22-2024 End: 00-90-3321Ooeyui flowsheetSaul Pineda DPM Work Phone: n[facility] CI PODIATRYStart: 08-22-2024 End: 09-73-3996Pgmhfhm encounter procedureNiccristhian Pineda DPM Work Phone: noms CI PODIATRYComment on above:Pain due to onychomycosis of toenails of both feet (Primary Dx); Venous insufficiencyStart: 08-22-2024 End: 58-43-9407onmjfbiqbyVZLBEXCJ A BROWNNot AvailableStart: 07-08-2024 End: 62-81-3992Aboowm flowsheetLinda Dempsey EMAIL MANAGER Work Phone: NOM[facility] CWM FMStart: 07-08-2024 End: 20-94-7656Ngyttw flowsTanner Dempsey EMAIL MANAGER Work Phone: NOPB CWM FMStart: 07-08-2024 End: 11-70-3381Xqtbxw outpatient visit 15 minutesBrloly Dempsey EMAIL MANAGER Work Phone: NOCF CWM FMComment on above:Pulmonary emphysema, unspecified emphysema type (CMS/HCC) (Primary Dx); Stage 3a chronic kidney disease (HCC) (CMS/HCC); Impacted cerumen of both earsStart: 06-07-2024 End: 45-65-6960Jdenohbit Result EncounterSlavinia Knight MD Work Phone: noms External Department UnsolicitedStart: 06-07-2024 End: 92-31-2999Lmluiejob Result EncounterSlavinia Knight MD Work Phone: noms External Department UnsolicitedStart: 10-10-2023 Patient encounter procedureLinda Dempsey EMAIL MANAGER Work Phone: noms HealthcareStart: 07-07-2023 End: 43-26-6811fiefqzxhvhZTSSFEBMarietta Osteopathic Clinic Start: 01-25-2023 End: 87-57-2489xupcysfklcKMOPVWK [facility] Start: 11-10-2022 End: 64-89-1801vglooidkvxEK STEVEN R ZIEBERFacility:B4Vyzli: 11-02-2022 End: 60-60-7807hhtmnruropWMSAL BROWNFacility:H2Rnqyx: 06-28-2022 End: 47-60-1151hnzaqcjaxbVAXMFT H FAWWADFacility:E8Rbgda: 06-21-2022 End: 17-24-0445dasnsdgvxaNEFEZG H FAWWADFacility:Y6Rheab: 06-17-2022 End: 82-99-3419sjqboiaofyLvecomrgt Breault Other [employer] Other Start: 73-02-8411Nupprm outpatient visit 15 minutes [facility] ClydeStart: 03-08-2022 End: 73-63-4018ticxrzqimwNtbi Bakhous Other [employer] Other Start: 89-07-5507Lawduv outpatient new 30 minutesLisa LesterFPG Nephrology ClydeStart: 02-22-2022 End: 31-12-9470yyrifaszrqVTNFYA H FAWWADFacility:M5Jkuau: 12-10-2021 End: 87-66-3401dpkciqlqiiHGJI R BOVAFacility:V1Qucfn: 02-27-2018 End: 98-22-3532TbpictayrkOVOEGTG PHYSICIANFacility:[facility] Procedures DateProcedureProcedure DetailPerforming ClinicianStart: 28-96-6432WTN VITAMIN D 25 OHLisa Nolvia EMAIL MANAGER Work Phone: Start: 33-27-8397SPR FOLIC ACIDNicole Hien DO Work Phone: Start: 77-55-0504GQE CBC WITH AUTO DIFFLisa Nolvia EMAIL MANAGER Work Phone: Start: 31-98-7238XG CHEST WO CONGeneric External Data ProviderStart: 60-09-9154KG LUNG SCREENING LOW DOSEGeneric External Data ProviderStart: 62-02-9413EL PULMONARY FUNCTION TESTSlavinia Knight MD Work Phone: Start: 67-75-7540CxvjgptilthPqsbghyv Fitzpatrick EMAIL MANAGER Work Phone: Plan of Treatment DateCare ActivityDetailAuthorStart: 77-75-8508Pdmdxpexb for malignant neoplasm of colonNOMS HealthcareStart: 12-18-2025Medicare Annual Wellness (AWV)Medicare Annual Wellness (AWV)[facility] HealthcareStart: 10-02-2025 End: 77-07-0084Gwzkvau encounter ygmocyxmd39/04/2025 4:10 PM EST Procedure Visit [facility] [address] [place] [address] Saul Pineda DPM [address] [facility] [address] [place] [address] N[facility] CI PODIATRYStart: 07-10-2025 End: 98-61-6323Junerjm encounter czcksusba17/11/2025 4:10 PM EDT Procedure Visit [facility] [address] [place] [address] Saul Pineda DPM [address] [facility] [address] [place] [address] Pain due to onychomycosis of toenails of both feet (Primary Dx); Venous insufficiencyNOMS CI PODIATRYComment on above:Pain due to onychomycosis of toenails of both feet (Primary Dx); Venous insufficiencyStart: 30-77-5841Mbbdysw referralMercy Health [facility] Work Phone: Start: 07-07-2025 End: 06-19-4430Crrzchu encounter yglefdkiw68/08/2025 1:00 PM EDT Office Visit [facility] [address] [place] [phone] Darlene De Souza, BLANQUITA [address] [place] [address] [facility] CW FMStart: 43-89-8347Ermpwdbyd vaccinationInfluenza Vaccine (#1)[facility] HealthcareStart: 06-26-2025 End: 31-86-0323Tdxkuin encounter ocgdydzdd20/28/2025 2:20 PM EDT Procedure Visit [facility] [address] [facility] [address] [place] [address] Saul Pineda DPM [address] [facility] [address] [place] [address] [facility] CI PODIATRYStart: 06-11-2025 End: 33-87-9932Vhiqtnt encounter /13/2025 1:00 PM EDT Office Visit [facility] [address] [place] [address] Darlene De Souza, BLANQUITA [address] [place] [address] [facility] CW FMStart: 05-27-2025 End: 63-34-2190Dfutukz encounter /29/2025 2:40 PM EDT Office Visit JOSEF AVILA [address] [place] [address] Katy Floyd NP [address] [place] JOSEF TEJEDALEOLAtart: 05-07-2025 End: 650705-tzdnuvsljffnfd D3 [Mass/volume] in Serum or PlasmaVitamin D 25 hydroxy Lab Routine Vitamin D deficiency Expected: 05/07/2025 (Approximate), Expires: 05/07/2026[facility] Work Phone: Comment on above:Expected: 05/07/2025 (Approximate), Expires: 05/07/2026Start: 04-21-2025 End: 03-98-4576Kpkykxp encounter augzulasy47/23/2025 10:30 AM EDT Procedure Visit JOSEF MONTIEL [address] [facility] [address] [place] [phone] Alonso Stanford DO [address] [place] [address] JOSEF SCRUGGSYStart: 04-17-2025 End: 61-50-9276Ibxwqcw encounter /19/2025 4:00 PM EDT Procedure Visit [facility] [address] [place] [address] Saul Pineda DPM [address] [facility] [address] [place] [address] Pain due to onychomycosis of toenails of both feet (Primary Dx); Venous insufficiencyNOMS CI PODIATRYComment on above:Pain due to onychomycosis of toenails of both feet (Primary Dx); Venous insufficiencyStart: 04-03-2025 End: 61-11-4608Ybnbirv encounter rugyaobct07/05/2025 3:00 PM EDT Procedure Visit [facility] [address] [place] [address] Saul Pineda, DPAdan [address] [address] [facility] CI PODIATRYStart: 03-11-2025 End: 65-58-0420Qtxzrhy encounter procedureNOMS CWM FMComment on above:Tremor (Primary Dx); Impacted cerumen of both earsStart: 03-05-2025 End: 71-02-4468XFW 2 ExtremitiesEMG 2 Extremities Neurology Routine Idiopathic peripheral neuropathy Expected: 03/05/2025 (Approximate), Expires: 03/05/2026 N[facility]S HealthcareComment on above:Expected: 03/05/2025 (Approximate), Expires: 03/05/2026Start: 03-05-2025 End: 53-87-6815Nrbjfw [Mass/volume] in Serum or PlasmaFolate Lab Routine Idiopathic peripheral neuropathy Expected: 03/05/2025 (Approximate), Expires: 03/05/2026[facility] Work Phone: comment on above:Expected: 03/05/2025 (Approximate), Expires: 03/05/2026Start: 03-05-2025 End: 04-55-5599OUC 9-10 NervesNVC 9-10 Nerves Neurology Routine Idiopathic peripheral neuropathy Expected: 03/05/2025 (Approximate), Expires: 03/05/2026 [facility] HealthcareComment on above:Expected: 03/05/2025 (Approximate), Expires: 03/05/2026Start: 03-05-2025 End: 47-40-3184Iaptwee encounter procedureANA BELLEVUEComment on above:Tremor Start: 03-05-2025 End: 79-60-7494Yfyzeki electrophoresis, serumProtein electrophoresis, serum Lab Routine Idiopathic peripheral neuropathy Expected: 03/05/2025 (Approximate), Expires: 03/05/2026NOMS HealthcareComment on above:Expected: 03/05/2025 (Approximate), Expires: 03/05/2026Start: 01-23-2025 End: 49-93-7234Zofgjbn encounter procedureNOMS CI PODIATRYComment on above:Pain due to onychomycosis of toenails of both feet (Primary Dx); Venous insufficiencyStart: 01-16-2025 End: 52-91-8916Euptxyq encounter tkwiickec38/20/2025 9:40 AM EDT Procedure Visit [facility] [address] [place] [phone] Saul Pineda DPM [address] [facility] [address] [place] [address] [facility] CI PODIATRYStart: 01-06-2025 End: 139541-bpdmcbohbcoahy D3 [Mass/volume] in Serum or PlasmaVitamin D 25 hydroxy Lab Routine Chronic kidney disease, stage 3a (HCC) (CMS/HCC) Expected: 01/06/2025 (Approximate), Expires: 01/06/2026NONV HealthcareComment on above: Expected: 01/06/2025 (Approximate), Expires: 01/06/2026Start: 01-06-2025 End: 81-17-6095YED W Auto Differential panel - BloodCBC and differential Lab Routine Centrilobular emphysema (CMS/HCC) Chronic respiratory failure with hypoxia (CMS/HCC) Chronic kidney disease, stage 3a (HCC) (CMS/HCC) Expected: 01/06/2025 (Approximate), Expires: 01/06/2026[facility] Work Phone: Comment on above:Expected: 01/06/2025 (Approximate), Expires: 01/06/2026Start: 01-06-2025 End: 71-39-4324Liwdbumgf (Vitamin B12) [Mass/volume] in Serum or PlasmaVitamin B12 Lab Routine Tremor Expected: 01/06/2025 (Approximate), Expires: 01/06/2026 [facility] HealthcareComment on above:Expected: 01/06/2025 (Approximate), Expires: 01/06/2026Start: 01-06-2025 End: 99-77-9776Lawpkqsqxukrv metabolic 2000 panel - Serum or PlasmaComprehensive metabolic panel Lab Routine Chronic kidney disease, stage 3a (HCC) (CMS/HCC) Expected: 01/06/2025 (Approximate), Expires: 01/06/2026[facility] HealthcareComment on above:Expected: 01/06/2025 (Approximate), Expires: 01/06/2026Start: 01-06-2025 End: 15-91-1353Zctthoijb [Mass/volume] in Serum or PlasmaMagnesium Lab Routine Myalgia Expected: 01/06/2025 (Approximate), Expires: 01/06/2026[facility] Comment on above:Expected: 01/06/2025 (Approximate), Expires: 01/06/2026Start: 01-06-2025 End: 80-12-7713Evogrpzfgpms/Creatinine panel in random UrineMicroalbumin / creatinine, urine ratio Lab Routine Chronic kidney disease, stage 3a (HCC) (CMS/HCC)Expected: 01/06/2025 (Approximate), Expires: 01/06/2026[facility] Comment on above:Expected: 01/06/2025 (Approximate), Expires: 01/06/2026Start: 01-06-2025 End: 37-36-8405Qndzesqzrub [Units/volume] in Serum or PlasmaTSH Lab Routine Tremor Expected: 01/06/2025 (Approximate), Expires: 01/06/2026[facility] Comment on above:Expected: 01/06/2025 (Approximate), Expires: 01/06/2026Start: 01-06-2025 End: 42-20-6968Qvgmunbhv (T4) free [Mass/volume] in Serum or PlasmaT4, free Lab Routine Tremor Expected: 01/06/2025 (Approximate), Expires: 01/06/2026[facility] HealthcareComment on above:Expected: 01/06/2025 (Approximate), Expires: 01/06/2026Start: 01-06-2025 End: 89-47-0431Hqdagmqcyqsoubhp (T3) Free [Mass/volume] in Serum or PlasmaT3, free Lab Routine Tremor Expected: 01/06/2025 (Approximate), Expires: 01/06/2026 [facility] HealthcareComment on above:Expected: 01/06/2025 (Approximate), Expires: 01/06/2026Start: 01-06-2025 End: 01-38-1048Jmqddaaowj complete panel - UrineUrinalysis with reflex microscopic (clean catch) Lab Routine Chronic kidney disease, stage 3a (HCC) ([facility]/HCC) Expected: 01/06/2025 (Approximate), Expires: 01/06/2026[facility] Comment on above:Expected: 01/06/2025 (Approximate), Expires: 01/06/2026Start: 01-06-2025 End: 04-64-5065Nwefllg encounter umuhottiq13/10/2025 9:00 AM EDT Office Visit [facility] [address] [place] [address] Linda Dempsey, LBANQUITA [address] [place] [address] [facility] FMStart: 11-21-2024 End: 37-82-2692Zvabpgg encounter fziptnpfo34/23/2025 9:00 AM EST Office Visit [facility] [address] [place] [address] Linda Dempsey, EMAIL MANAGER [address] [place] [address] [facility] FMStart: 10-31-2024 End: 65-16-7257Quqhzat encounter procedureNOMS CI PODIATRYComment on above:Pain due to onychomycosis of toenails of both feet (Primary Dx); Venous insufficiencyStart: 10-17-2024 End: 02-91-4524Ymgrxok encounter procedureN[facility] FMStart: 10-16-2024 End: 67-03-5368Gomsctb encounter jmnwmmsre83/18/2024 10:00 AM EST Office Visit [facility] [address] [place] [address] Linda Dempsey, EMAIL MANAGER [address] [place] [address] ArrivedN[facility]S [facility] FMComment on above:ArrivedStart: 10-10-2024 Medicare Annual Wellness (AWV)Medicare Annual Wellness (AWV)[facility] Start: 10-07-2024 End: 60-76-3974Acuivht encounter nwyyjqjfw74/09/2024 9:00 AM EST Office Visit [facility] [address] [place] [address] Linda Dempsey, BLANQUITA [address] [place] [id number] [facility] FMStart: 08-22-2024 End: 45-40-3385Sugsqwo encounter uayjffniz17/24/2024 2:20 PM EDT Procedure Visit [facility] [address] [id number] Saul Pineda DPM [address] [address] [facility] PODIATRYStart: 08-22-2024 End: 16-72-1871Zkqxovr encounter rumvafixj43/24/2024 9:20 AM EDT Procedure Visit [facility] [address] [id number] Saul Pineda DPM [address] [address] Pain due to onychomycosis of toenails of both feet (Primary Dx); Venous insufficiencyNOMS CI PODIATRYComment on above:Pain due to onychomycosis of toenails of both feet (Primary Dx); Venous insufficiencyStart: 07-08-2024 End: 22-32-6217Pmpqjsj encounter tknapbklm85/09/2024 10:00 AM EDT Office Visit [facility] [address] [place] [id number] Linda Dempsey, EMAIL MANAGER [address] [place] [address] [facility] FMComment on above:ArrivedStart: 06-30-2024 Influenza vaccinationInfluenza Vaccine (#1)[facility] HealthcareStart: 1950 Screening for malignant neoplasm of colonTIM[facility]ANOG[facility] HealthcareComprehensive metabolic 2000 panel - Serum or PlasmaLima City HospitalCT Chest W contrast [facility] InstitutePatient referralMercy Health Lorain Hospital Work Phone: [facility] Immunizations Immunization DateImmunizationNotesCare ZljvmgrlCwyasfmw64-05-5382Bezvqlyiwkri Conjugate PCV 20Lisa Aichholz EMAIL MANAGER Work Phone: [facility] CenterSiifotqvxq58-74-1995TTZH-YVO-0 (COVID-19) vaccine, mRNA, spike protein, LNP, preservative free, 25 mcg/0.25 mL dose [id number] Darlene Aichholz EMAIL MANAGER Work Phone: [facility] CenterAafrnptqlu85-18-4172Jnlnqzdn trivalent influenza vaccine, adjuvanted, preservative freeLisa Aichholz EMAIL MANAGER Work Phone: [facility] CenterAckiikeewo91-91-4266tirnqjgyd virus vaccine, unspecified formulationSaul Pineda DPM Work Phone: [facility] CenterCwuhcaidyn97-17-7366qbccoasyk, high dose seasonal, preservative-freeBrittany Dempsey EMAIL MANAGER Work Phone: [facility] CenterGjccpypjks62-36-0898ebkkncnau virus vaccine, unspecified formulationBrittany Dempsey EMAIL MANAGER Work Phone: [facility] CenterMmucewtesw82-64-5159Tkxsoufmx, Seasonal, Quadrivalent, AdjuvantedLisa Aichholz EMAIL MANAGER Work Phone: noTwo [facility] Psychiatric HospitalMrtyczztqc46-84-0127Wtwoydiz trivalent influenza vaccine, adjuvanted, preservative freeLisa Aichholz EMAIL MANAGER Work Phone: [facility] CenterVxwehzhghk42-37-0516Espkdhqe trivalent influenza vaccine, adjuvanted, preservative freeLisa Aichholz EMAIL MANAGER Work Phone: [facility] CenterNbmmsdyevc24-46-2591uvaxvtmebbpj polysaccharide vaccine, 23 valentLisa Aichholz EMAIL MANAGER Work Phone: [facility] CenterVcqthqdcrf57-41-1298Zyogvdpb trivalent influenza vaccine, adjuvanted, preservative freeLisa Aichholz EMAIL MANAGER Work Phone: [phone] [place], [place] [address]Fcatetwrdf69-03-0185ecvxjhzyo, injectable, quadrivalent, contains preservativeLisa Aichholz EMAIL MANAGER Work Phone: [facility] CenterButkkdgegg91-05-4050ppmnrpxcc, injectable, quadrivalent, preservative freeLisa Aichholz EMAIL MANAGER Work Phone: [facility] Payers DatePayer CategoryPayerPolicy [id number] Health InsuranceMEDICAL MUTUAL [id number] [id number] 1959Medicare [id number] [id number] 2.16.840.1.166750.3.579.2.593 [id number] 2.16.840.1.964584.3.57[id number] 2.16.840.1.678852.3.57[id number] 2.840.1.971381.3.57[id number] 2..840.1.832131.3.57[id number] 2.840.1.165936.3.57[id number] 2.840.1.150351.3.57[id number] 2.840.1.458435.3.57[id number] 2.840.1.592551.3.57[id number] 2.840.1.107168.3.57[id number] 2.840.1.922434.3.57[id number] 2.840.1.464307.3.57[id number] 2.840.1.004055.3.57[id number] 2.840.1.439754.3.57[id number] 2.840.1.932315.3.579.2.1259 Social History DateTypeDetailFacilityUnknown if ever smokedBradenton [facility] Other Start: 07-08-2024 End: 57-87-1441Ntm Assigned At [facility] Other Start: 63-60-9033Jriefji smoking status NHISEx-smoker [facility] HealthcareHistory of tobacco useCurrent smokerNOMS HealthcareHistory of tobacco useCigarette SmokerNOMS HealthcareStart: 04-24-2024 End: 04-73-0715Egaxwfdwcs smoked current (pack per day) - Tsletlxl5LPKJ HealthcareHistory of tobacco usePassive smokerNOMS HealthcareStart: 04-24-2024 Tobacco use and exposureSmokeless tobacco non-userNOMS HealthcareStart: 07-08-2024 End: 76-24-4917Rhmdjeest beverage intakeLifetime non-drinker (finding)[facility] HealthcareStart: 60-39-0875Nub assigned at [facility]Not [facility] Tobacco smoking status NHISUnknown if ever smokedMercy Health Lorain Hospital Work Phone: SexMale (finding)[facility] Start: 36-90-9010Ldt Assigned At [facility] Start: 60-28-9415HsjMkqsXHOA Healthcare Functional Status GxjaOnhbckxowjXvuhftLndhtnck78-84-4102Cxipgzm Health Questionnaire 2 item (PHQ- 2) [Reported][facility] CenterYkosbrwtqo98-27-5913Qnosfbx Health Questionnaire 2 item (PHQ- 2) [Reported][facility] Clinical Notes 03-08-2022 to 07-10-2025 Note Date & XiwiPxluRspuwmdx85-70-4822 History of Present illness Narrative* Saul Pineda, ALIA - 07/10/2025 4:10 PM EDT Patient: Martin Arroyo : 1950 PCP: Demetrius Dorado MD [...] HTN CKD (chronic kidney disease), stage III ([facility]-HCC) COPD (chronic obstructive pulmonary disease) ([facility]) GOLDEN (dyspnea on exertion) Dyslipidemia (high [...] mouth Daily, Disp: 30 capsule, Rfl: 1 Ojxkcmyqptk-Pcoyibiav-Cxdmcu (Trelegy Ellipta) 200-62.5-25 MCG/ACT aerosol powder , [...] Partner Violence: Unknown (12/21/2023) Received from [facility] Safety & Environment Fear of [...] and thickness digits 1 through 10 Saul Pineda DPM documented in this encounterMineral Area Regional Medical CenterKsvpbikbtl17-12-6694 Evaluation note* Diagnosis Stage 3a chronic kidney [...] Impacted cerumen Chronic kidney disease, stage 3a ([facility]-HCC) Vitamin D deficiency Vitamin B12 deficiency Other B-complex deficiencies Pain due to onychomycosis of toenails of both feet- Primary Venous insufficiency Unspecified venous (peripheral) insufficiency documented in this encounter [facility] CenterTxoviptikt13-63-1437 Evaluation note* Diagnosis Stage 3a chronic kidney disease ([facility]-HCC)- Primary Encounter for Medicare annual wellness exam Pulmonary emphysema, unspecified emphysema type (HCC) COPD with exacerbation (HCC) Stage 3a chronic kidney disease ([facility]-HCC)- Primary Pulmonary emphysema, unspecified emphysema type (HCC) Subconjunctival hemorrhage of left eye Pulmonary emphysema, unspecified emphysema type (HCC)- Primary Stage 3a chronic kidney disease ([facility]-HCC) Pulmonary emphysema, unspecified emphysema type (HCC)- Primary Stage 3a chronic kidney disease ([facility]-HCC) Impacted cerumen of both ears Impacted cerumen Screening for prostate cancer- Primary Special screening for malignant neoplasm of prostate Centrilobular emphysema (HCC) Chronic respiratory failure with hypoxia (HCC) Chronic kidney disease, stage 3a ([facility]-HCC) Bronchiectasis, uncomplicated (HCC) Myalgia Unspecified myalgia and myositis Tremor Abnormal involuntary movements Impacted cerumen of both ears Impacted cerumen Tremor- Primary Abnormal involuntary movements Impacted cerumen of both ears Impacted cerumen Chronic kidney disease, stage 3a ([facility]-HCC) Vitamin D deficiency Vitamin B12 deficiency Other B-complex deficiencies Vitamin D deficiency documented in this encounter [facility] CenterAyoiipyjyb82-65-5555 Evaluation note* Diagnosis Onset Date Resolution Status Admit Date Essential tremor acuteJuly 2024 2:28pmPeripheral neuropathyacuteJuly 2024 2:28pm Vitamin B12 deficiencyacuteJuly 2024 2:28pmCOPD with emphysemaacute July 07, 2025 1:01pmMultiple pulmonary nodulesacuteSept2024 1:01pmSyncope and collapseacuteSept2024 1:01pm [facility] Work Phone: [phone] 265-899707-15-2025 Evaluation note* Diagnosis Stage 3a chronic kidney [...] emphysema type (HCC) documented in this encounter [facility] CenterOcbnksvyzj57-23-1074 History of Present illness Narrative* Saul Pineda, ALIA - 04/17/2025 4:00 PM EDT Patient: Martin Arroyo : 1950 PCP: Demetrius Dorado MD [...] of breath, Disp: 18 g, Rfl: 1 Bizwptmvctp-Dposcdsbe-Puegtu (Trelegy Ellipta) 200-62.5-25 MCG/ACT aerosol powder , [...] Partner Violence: Unknown (12/21/2023) Re[facility] from [facility] [place] Safety & Environment Fear of [...] and thickness digits 1 through 10 Saul Pineda DPM documented in this encounterMineral Area Regional Medical CenterWgxugwrjfo87-02-0116 Evaluation note* Diagnosis Stage 3a chronic kidney [...] venous (peripheral) insufficiency documented in this encounter [facility] CenterPzblttarpd19-30-0917 Evaluation note* Diagnosis Stage 3a chronic kidney [...] type (CMS/HCC)- Primary documented in this encounter [facility] CenterVezjzasqzo47-42-0004 History of Present illness Narrative* Darlene De [...] Problem(s): Chronic kidney disease, stage 3a (HCC) ([facility]/HCC) Continue to monitor, appears to be stable * Darelne De Souza NP - 03/11/2025 1:40 PM EDT Images from the original note were not included. Martin Arroyo is a 75 y.o. male presents [...] cholecalciferol (VITAMIN D-3) 125 mcg, Oral, Daily Fxvxeobrzgi-Zpbkoimfj-Oxwabq (Trelegy Ellipta) 200-62.5-25 MCG/ACT aerosol powder 1 [...] CKD (chronic kidney disease), stage III (HCC) ([facility]/HCC) COPD (chronic obstructive pulmonary disease) ([facility]/HCC) GOLDEN (dyspnea on exertion) Dyslipidemia (high LDL; low HDL) ([facility]) Essential tremor Left hip pain Muscle [...] Visit Chronic kidney disease, stage 3a (HCC) ([facility]) Continue to monitor, appears to be [...] propranolol at appt 03/05/25 documented in this encounterMineral Area Regional Medical CenterKutdnsqcnr42-45-1443 Evaluation note* Diagnosis Stage 3a chronic kidney disease (HCC) (CMS/HCC)- Primary Encounter for Medicare annual wellness exam Pulmonary emphysema, unspecified emphysema type ([facility]/HCC) COPD with exacerbation ([facility]/HCC) Stage 3a chronic kidney disease (HCC) ([facility]/HCC)- Primary Pulmonary emphysema, unspecified emphysema type (CMS/HCC) Subconjunctival hemorrhage of left eye Pulmonary emphysema, unspecified emphysema type (CMS/HCC)- Primary Stage 3a chronic kidney disease (HCC) (CMS/HCC) Pulmonary emphysema, unspecified emphysema type (CMS/HCC)- Primary Stage 3a chronic kidney disease (HCC) (CMS/HCC) Impacted cerumen of both ears Impacted cerumen Screening for prostate cancer- Primary Special screening for malignant neoplasm of prostate Centrilobular emphysema ([facility]/HCC) Chronic respiratory failure with hypoxia (CMS/HCC) Chronic kidney disease, stage 3a (HCC) ([facility]/HCC) Bronchiectasis, uncomplicated ([facility]/HCC) Myalgia Unspecified myalgia and myositis Tremor Abnormal involuntary movements Impacted cerumen of both ears Impacted cerumen Tremor- Primary Abnormal involuntary movements Impacted cerumen of both ears Impacted cerumen Chronic kidney disease, stage 3a (HCC) (CMS/HCC) Vitamin D deficiency Vitamin B12 deficiency Other B-complex deficiencies documented in this encounter [facility] CenterWegbqpjmxz65-23-1937 History of Present illness Narrative* Alonso Stanford DO - 03/05/2025 2:00 PM EDT Images from the original note were not included. Chief Complaint Patient presents with Tremors Subjective Martin R Arroyo, 75 y.o., male new patient here in [...] comes and goes. If he tries to chart picker a glass it can be difficult [...] CKD (chronic kidney disease), stage III (HCC) (CMS/[facility]) COPD (chronic obstructive pulmonary disease) ([facility]) GOLDEN (dyspnea on exertion) Dyslipidemia (high LDL; low HDL) ([facility]) Essential tremor Left hip pain Muscle [...] to clinic: 2 months documented in this encounterMineral Area Regional Medical CenterDuwhigmsrd48-17-7962 Evaluation note* Diagnosis Stage 3a chronic kidney [...] Abnormal involuntary movements documented in this encounter [facility] CenterPtgccpoiwp30-97-9335 Evaluation note* Diagnosis Stage 3a chronic kidney [...] D deficiency- Primary documented in this encounter [facility] CenterFlmcgipurw04-70-8400 History of Present illness Narrative* Saul Pineda DPM - 01/23/2025 1:50 PM EDT Patient: Martin Arroyo DOB: 1950 PCP: Demetrius Dorado MD SUBJECTIVE This [...] hours if needed for wheezing, Disp:, Rfl: Exyvfdusyab-Vvstsvsmg-Natjux (Trelegy Ellipta) 200-62.5-25 MCG/ACT aerosol powder , [...] Violence: Unknown (12/21/2023) [facility] Safety & Environment Fear of [...] and thickness digits 1 through 10 Saul Pineda DPM documented in this encounterMineral Area Regional Medical CenterIudpqszklc52-12-8321 Evaluation note* Diagnosis Stage 3a chronic kidney disease (HCC) (CMS/HCC)- Primary Encounter for Medicare annual wellness exam Pulmonary emphysema, unspecified emphysema type ([facility]/HCC) COPD with exacerbation ([facility]/HCC) Stage 3a chronic kidney disease (HCC) (CMS/HCC)- [...] venous (peripheral) insufficiency documented in this encounter [facility] CenterXwwiupfpjs80-74-3233 History of Present illness Narrative* Darlene De Souza NP - 01/06/2025 2:23 PM EDTAssociated Problem(s): Tremor No family hx of parkinson's Was told some time ago had essential tremors We discussed this, as well as other etiologies Will order some labs and refer to Neurology for evaluation Fu w in 8 weeks * Darlene De Souza [...] the original note were not included. Martin Arroyo is a 74 y.o. male presents with [...] inhaler 2 puffs, Every 4 hours PRN Akztttalbpv-Mjgiuijhz-Phcwfu (Trelegy Ellipta) 200-62.5-25 MCG/ACT aerosol powder 1 [...] on exertion) Dyslipidemia (high LDL; low HDL) ([facility]) Essential tremor Left hip pain Muscle [...] for evaluation Fu w in 8 weeks Relevant Orders TSH T4, [...] pneumonia and COVID vaccines documented in this [facility]03-10-2025 Instructions* Patient Instructions* Darlene De Souza NP - 01/06/2025 1:20 PM EDT Check labs Refer to neurology documented in this [facility]03-10-2025 Evaluation note* Diagnosis Stage 3a chronic kidney disease (HCC) (CMS/HCC)- Primary Encounter for Medicare annual wellness exam Pulmonary emphysema, unspecified emphysema type ([facility]/HCC) COPD with exacerbation (CMS/HCC) Stage 3a [...] ears Impacted cerumen documented in this encounter [facility] CenterRciylouxrd38-03-0113 History of Present illness Narrative* Saul Pineda, DPM - 10/31/2024 9:30 AM EST Patient: Martin Arroyo : 1950 PCP: Demetrius Dorado MD [...] (HCC) (CMS/HCC) COPD (chronic obstructive pulmonary disease) ([facility]/HCC) GOLDEN (dyspnea on exertion) Dyslipidemia (high LDL; low HDL) ([facility]) Essential tremor Left hip pain Muscle cramping Neurogenic claudication due to lumbar spinal stenosis Pain in left lumbar region of back Personal history of nicotine dependence Shortness of breath on exertion Medications: Current Outpatient Medications: albuterol HFA 90 mcg/act inhaler, Inhale 2 puffs every 4 (four) hours if needed for wheezing, Disp:, Rfl: Wfsyunhwxar-Fukswfdsa-Qjxpqw (Trelegy Ellipta) 200-62.5-25 MCG/ACT aerosol powder , [...] Partner Violence: Unknown (12/21/2023) [facility] [place] Safety & Environment Fear of [...] and thickness digits 1 through 10 Saul Pineda DPM documented in this encounterMineral Area Regional Medical CenterDnqgjhnive20-34-5972 Evaluation note* Diagnosis Stage 3a chronic kidney disease (HCC) (CMS/HCC)- Primary Encounter for Medicare annual wellness exam Pulmonary emphysema, unspecified emphysema type ([facility]/HCC) COPD with exacerbation ([facility]/HCC) Stage 3a chronic kidney disease (HCC) (CMS/HCC)- [...] venous (peripheral) insufficiency documented in this encounter [facility] CenterAcejobgosn52-08-4232 History of Present illness Narrative* Linda Dempsey NP - 10/16/2024 10:00 AM EST Images from the original note were not included. Subjective : Chief Complaint: Martin Arroyo is an 74 y.o. male here for an annual wellness visit. I have reviewed and reconciled the history and medication list with the patient today. Current Outpatient Medications Medication Sig Dispense Refill albuterol HFA 90 mcg/act inhaler Inhale 2 puffs every 4 (four) hours if needed for wheezing Ketujfakzjl-Ltdgnwbpg-Xtyfgm (Trelegy Ellipta) 200-62.5-25 MCG/ACT aerosol powder Inhale [...] taxes?: Yes Cognitive Screening Three Word Registration: River, Nation, Finger Clock Drawing: Normal Clock - 2 Three Word Recall: All 3 words correct - 3 Total Score (0-5 Points): 5 Advance Care Planning Do you have a living will?: No Do you have a medical power of real estate associate attorney?: No Objective : BP 120/86 Pulse [...] on October 16, 2024 documented in this encounterMineral Area Regional Medical CenterWarnnzoden91-97-6161 History of Present illness Narrative* Saul Pineda DPM - 08/22/2024 9:20 AM EDT Patient: Martin Arroyo : 1950 PCP: Demetrius Dorado MD [...] CKD (chronic kidney disease), stage III (HCC) ([facility]) COPD (chronic obstructive pulmonary disease) ([facility]) GOLDEN (dyspnea on exertion) Dyslipidemia (high LDL; low HDL) ([facility]) Essential tremor Left hip pain Muscle cramping Neurogenic claudication due to lumbar spinal stenosis Pain in left lumbar region of back Personal history of nicotine dependence Shortness of breath on exertion Medications: Current Outpatient Medications: albuterol HFA 90 mcg/act inhaler, Inhale 2 puffs every 4 (four) hours if needed for wheezing, Disp:, Rfl: Ancpesvmvzf-Dvpaqnsxa-Edljzs (Trelegy Ellipta) 200-62.5-25 MCG/ACT aerosol powder , [...] Violence: Unknown (12/21/2023) Received from [facility] [place] Safety & Environment Fear of [...] and thickness digits 1 through 10 Saul Pineda DPM documented in this encounterMineral Area Regional Medical CenterQrjtbgpkrm82-63-3014 Evaluation note* Diagnosis Stage 3a chronic kidney disease (HCC) ([facility]/HCC)- Primary Encounter for Medicare annual wellness exam Pulmonary emphysema, unspecified emphysema type ([facility]/HCC) COPD with exacerbation ([facility]/HCC) Stage 3a chronic kidney disease (HCC) ([facility]/HCC)- Primary Pulmonary emphysema, unspecified emphysema type ([facility]/HCC) Subconjunctival hemorrhage of left eye Pulmonary emphysema, unspecified emphysema type ([facility]/HCC)- Primary Stage 3a chronic kidney disease (HCC) ([facility]/HCC) Pulmonary emphysema, unspecified emphysema type (CMS/HCC)- Primary Stage 3a chronic kidney disease (HCC) ([facility]/HCC) Impacted cerumen of both ears Impacted cerumen Pain due to onychomycosis of toenails of both feet- Primary Venous insufficiency Unspecified venous (peripheral) insufficiency documented in this encounter [facility] CenterDxdwguyuva39-35-0403 History of Present illness Narrative* Linda Dempsey NP - 07/08/2024 10:33 AM EDTAssociated Problem(s): Stage 3a chronic kidney disease (HCC) ([facility]/HCC) CKD 3, stable. Renal function stable. Avoid nephrotoxic agents. * Linda Dempsey NP - 07/08/2024 10:31 AM EDTAssociated Problem(s): COPD with emphysema ([facility]) Currently taking Trelegy daily Uses Albuterol PRN [...] were not included. Subjective Patient ID: Martin Arroyo is a 74 y.o. male who presents [...] Visit Stage 3a chronic kidney disease (HCC) ([facility]) CKD 3, stable. Renal function stable. Avoid nephrotoxic agents. COPD with emphysema ([facility]) - Primary Currently taking Trelegy daily [...] 6.5 % otic solution documented in this encounterMineral Area Regional Medical CenterXvojwtcqqd18-80-2323 Instructions* Patient Instructions* Linda Dempsey NP - 07/08/2024 10:00 AM EDT Keep up the good work! Call if you need anything! documented in this encounterMineral Area Regional Medical CenterTzvfplgnjx98-16-6692 NoteCardiology Clinic Note Chief Complaint: follow up HPI: Martin Arroyo is a 73 y.o. male with a [...] history of COPD (chronic obstructive pulmonary disease) ([facility]), Emphysema of lung ([facility]), and Hypertension. Surgical History He has [...] will check lipid panel (more content not included)...[facility]09-08-2023 Note Patient here for 6 mo follow up abnormal stress test, dyspnea, and hypertension. Still denies chest pain. PCP manages his COPD/emphysema. He had CT chest and lab work a few weeks ago.[facility]03-29-2023 Note Cardiology Clinic Note Chief Complaint: new patient regarding abnormal stress test HPI: Martin Arroyo is a 73 y.o. male with a [...] procedures at this ti (more content not included)...[facility]08-24-2022 NotePROCEDURE: XR HIP LT 2 3V W [...] hip joints bilaterally. Electronically authenticated by: MARSHALL VEGA Date: 2022-06-22 08:42[facility]08[facility]19[facility] Evaluation note* Encounter Date Diagnosis Assessment [...] if symptoms worsen or new symptoms occur. [employer] Other 05-10-2022 Evaluation note* Encounter Date Diagnosis Assessment Notes Treatment Notes Treatment Clinical Notes February, Chronic kidney disease, stage 3a (ICD-10 - N18.31) Likely from renovascular disease related to history of smoking. Patient also could have nephropathyfrom NSAID use. Patient has mild kidney disease. [...] Follow-up with the patient in 3 months [employer] Other Evaluation note* Diagnosis Stage 3a chronic kidney disease (HCC) (CMS/HCC)- Primary Encounter for Medicare annual wellness exam Pulmonary emphysema, unspecified emphysema type (CMS/HCC) COPD with exacerbation (CMS/HCC) Stage 3a chronic kidney disease (HCC) ([facility]/HCC)- Primary Pulmonary emphysema, unspecified emphysema type [...] Date Resolution Status Admit Date Peripheral neuropathy acuteJuly 2024 2:28pm [facility] Work Phone: History general Narrative - Reported* Type Description Date Medical History DYSLIPIDEMIA Medical HistoryESSENTIAL TREMORMedical HistoryACUTE RIGHT SIDED THORACIC BACK PAINMedical HistoryCOPD WITH ASTHMAMedical HistorySHORTNESS OF BREATH ON EXERTIONMedical HistoryABNORMAL EKGMedical HistoryPERSONAL HISTORY OF NICOTINE DEPENDENCEMedical HistoryPAIN IN LEFT LUMBAR REGION OF BACKSurgical History [id number] HistoryTONSILSSurgical MxuqfwkIXOGGHOVTSO0445Bofejovb HistoryTEETHHospitalization HistoryLUNG [id number] [employer] Other Hospital Discharge instructionsAmbulatory Orders* Referral to Pulmonology Time Frame: 07/07/25, Location: None Selected [facility] Work Phone: Reason for referral (narrative)No reason for referral information availableMercy Health Lorain Hospital Work Phone: Summary Purpose Family History Relationship Condition Age at Onset Recorded Date/T timo daughter Unknown fatherDeceasedUnknownMeningitisUnknownfamily memberDeceasedUnknownmotherDeceased UnknownsonDeceasedUnknownFamily history of mental disorderUnknownsisterFamily history of mental disorderUnknown Advance Directives Advance Directive Response Recorded Date/ [...] and content) DATE CREATED AUTHOR 04/19/2018 [facility] DATE CREATED AUTHOR AUTHOR'S ORGANIZ ATION 11/11/2022 [facility] DATE CREATED AUTHOR AUTHOR'S ORGANIZ ATION 07/08/2023 [facility] DATE CREATED AUTHOR AUTHOR'S ORGANIZ ATION 07/13/2025 [facility] EPIC REASON FOR VISIT (unrecogniz ed section and content) ReasonCommentsToenail CareNon DM [id number] Toenail CareNon dm nail careReasonCommentsTremorsSpecialtyDiagnoses / Procedures Referred By ContactReferred To ContactNeurology Diagnoses Tremor Procedures [place] OFFICE/OUTPATIENT NEW HIGH MDM 60 MINUTES Darlene De Souza, BLANQUITA [address] [place] [address] Phone: tel: fax: Arnulfo Kwok DO [address] [place] [phone] Phone: tel: fax: Referral IDStatusReasonStart DateExpiration DateVisits RequestedVisits [id number] Consult and Treat /[id number] RefillReasonComments Toenail CareReasonOnset DateCommentsMed Rjrqpe0705/07/2025 Care Teams (unrecognized sec tion and content) Team MemberRelationshipSpecialtyStart DateEnd Date Demetrius Dorado MD [address] [place] [address] [facility] - [facility] Linda Dempsey NP [address] [place] [address] [facility]/24Team MemberRelationshipSpecialtyStart DateEnd Date Demetrius Dorado MD [address] [place] [address] [facility]/24 Linda Dempsey NP [address] [place] [address] [facility]06/05/24Team MemberRelationshipSpecialtyStart DateEnd Date Demetrius Dorado MD [address] [place] [address] [facility] - [facility]/24 Linda Dempsey NP [address] [place] [address] [facility]06/05/24Team MemberRelationshipSpecialtyStart DateEnd Date Demetrius Dorado MD [address] [place] [address] PCP - Generalmi Medicine06/05/24 Linda Dempsey, BLANQUITA [address] [place] [address] [facility]06/05/24Team MemberRelationshipSpecialtyStart DateEnd Date Demetrius Dorado MD [address] [place] [address] [facility] - [facility]06/05/24 Linda Dempsey, BLANQUITA [address] [place] [address] [facility]06/05/24Team MemberRelationshipSpecialtyStart DateEnd Date Demetrius Dorado MD [address] [place] [address] PCP - GeneralFami Medicine06/05/24 Linda Dempsey, BLANQUITA [address] [place] [address] [facility]06/05/24Team MemberRelationshipSpecialtyStart DateEnd Date Demetrius Dorado MD [address] [place] [address] PCP - Generalmi [facility]06/05/24 Linda Dempsey NP [address] [place] [address] [facility]06/05/24Team MemberRelationshipSpecialtyStart DateEnd Date Demetrius Dorado MD [address] [place] [address] PCP - [facility]06/05/24 Linda Dempsey NP [address] [place] [address] [facility]06/05/24Team MemberRelationshipSpecialtyStart DateEnd Date Demetrius Dorado MD [address] [place] [address] [facility] - [facility]06/05/24 Linda Dempsey NP [address] [place] [address] Nurse [facility]06/05/24Team MemberRelationshipSpecialtyStart DateEnd Date Demetrius Dorado MD [address] [place] [address] PCP - [facility]06/05/24 Linda Dempsey NP [address] [place] [address] Nurse [facility]06/05/24Team MemberRelationshipSpecialtyStart DateEnd Date Demetrius Dorado MD [address] [place] [address] PCP - Generalmily Medicine06/05/24 Linda Dempsey NP [address] [place] [address] [facility]06/05/24Team MemberRelationshipSpecialtyStart DateEnd Date Demetrius Dorado MD [address] [place] [address] [facility]CP - [facility]06/05/24 Linda Dempsey NP [address] [place] [address] [facility]06/05/24Team MemberRelationshipSpecialtyStart DateEnd Date Demetrius Dorado MD [address] [place] [address] PCP - [facility]06/05/24 Linda Dempsey NP [address] [place] [address] [facility]06/05/24Team MemberRelationshipSpecialtyStart DateEnd Date Demetrius Dorado MD [address] [place] [address] PCP - [facility]06/05/24 Linda Dempsey NP [address] [place] [address] [facility]06/05/24Team MemberRelationshipSpecialtyStart DateEnd Date Demetrius Dorado MD [address] [place] [address] [facility] - [facility]06/[facility]/24 Linda Dempsey NP [address] [place] [address] [facility]06/05/24Team MemberRelationshipSpecialtyStart DateEnd Date Demetrius Dorado MD [address] [place] [address] PCP - [facility]06/05/24 Linda Dempsey NP [address] [place] [address] [facility]06/05/24Team MemberRelationshipSpecialtyStart DateEnd Date Demetrius Dorado MD [address] [place] [address] PCP - [facility]06/05/24 Linda Dempsey NP [address] [place] [address] [facility]/24 Team Status: Active Member Role Status Dates [facility] Primary Care Provider Activ e Team Status: Inactive Member Role Status Dates Alonso Stanford DO Attending Provider Active Sta rt: April 21, 2025 End: April 21, 2025[facility] ProviderActiveStart: April 21, 2025 End: April 21, 2025 Team Status: Inactive Member Role Status Dates Katy Floyd APRN Attending Provider Active Start: May 27, 2025 End: May 27, 2025[facility] ProviderActiveStart: May 27, 2025 End: May 27, 2025Team MemberRelationshipSpecialtyStart DateEnd Date Demetrius Dorado MD [address] [place] [address] [facility]24 Linda Dempsey NP [address] [place] [address] [facility]06/05/24 Team Status: Inactive Member Role Status Dates [facility] Primary Care Provider Activ e Start: July 07, 2025 End: July 07, 2025Lisa Arlene Lozano ProviderActiveStart: July 07, 2025 End: July 07, 2025Team MemberRelationshipSpecialtyStart DateEnd Date Demetrius Dorado MD [address] [place] [address] PCP - [facility]06/05/24 Linda Dempsey NP [address] [place] [address] [facility]06/05/24Team MemberRelationshipSpecialtyStart DateEnd Date Demetrius Dorado MD [address] [place] [address] PCP - [facility]06/05/24 Linda Dempsey NP [address] [place] [address] [facility]06/05/24Team MemberRelationshipSpecialtyStart DateEnd Date Demetrius Dorado MD [address] [place] [address] PCP - [facility]06/05/24 Linda Dempsey NP [address] [place] [address] [facility]06/05/24Team MemberRelationshipSpecialtyStart DateEnd Date Demetrius Dorado MD [address] [place] [address] PCP - [facility]06/05/24 Linda Dempsey NP [address] [place] [address] Nurse [facility]06/05/24 Goals (unrecognized section and content) Goals may [...] BE BASED ON THE PRIMARY CLINICAL RECORDS. [facility]. provides no warranty or guarantee of the accuracy or completeness of information in this document.
[2025-08-26 14:12] LABS: Hemoglobin 15.9 g/dL (14.0-18.0)
[2025-08-26] MEDS: ALBUTEROL SULFATE 2.5 MG/3 ML VIAL NEB IH (15:26)
== END 2025-08-26 13:52 | disposition home or self-care (01) ==
LOC: CARD 13:52
PROVIDERS: PCP Nurse Practitioner; Visit Provider Nurse Practitioner
DX: E55.9 Vitamin D deficiency, unspecified (principal); J43.9 Emphysema, unspecified; J96.11 Chronic respiratory failure with hypoxia
CPT/HCPCS: 36415; 82306; 85018; 94060; 94726; 94729; 95070